=== PATIENT | male | born 1955 | race Caucasian/White ===

== ENCOUNTER 2017-12-04 12:09 | Inpatient (IN) | payer OTHER ==
[2017-12-04] MEDS ORDERED: Piperacill/Tazo 4.5gm in NS 4.5 GM/100 ML BAG IVPB STA (12:45)
--- NOTE | 2017-12-04 12:49 | ED PDOC ---
Arrival/HPI - General Chief Complaint: Lower Extremity Problem/Injury Time Seen by Provider: 12/04/17 12:21 Historian: Patient, Partner - History of Present Illness Narrative History of Present Illness (Text): you were treated in the ED today for diabetes?, sent by Dr. Jian Jauregui for admission for having left foot/5th toe swelling/color change and left lower leg swelling for about 2 weeks and possible injury but otherwise without any nausea/ vomiting/headache/dizziness/difficulty breathing/chest pain/abdomen pain/ numbness/tingling/loss of limb function/pain with urination/travel/prior blood clots/prior cancer. Time/Duration: > week (2) Symptom Onset: Gradual Symptom Course: Worsening Quality: Other (no pain) Activities at Onset: Rest Context: Sitting Past Medical History - Provider Review Nursing Documentation Reviewed: Yes - Travel History Have you recently traveled outside [place] w/in the past 3 mons?: No - Infectious Disease Hx of Infectious Diseases: None - Neurological Other/Comment: neuropathy - Endocrine/Metabolic Hx Diabetes Mellitus Type 2: Yes - Psychiatric Hx Substance Use: No Family/Social History - Physician Review Nursing Documentation Reviewed: Yes Family/Social History: No Known Family HX Smoking Status: Former Smoker Hx Alcohol Use: Yes Frequency of alcohol use: Socially Hx Substance Use: No Allergies/Home Meds Allergies/Adverse Reactions: Allergies No Known Allergies Allergy (Verified 12/04/17 12:16) Review of Systems - Review of Systems Constitutional: Normal Eyes: Normal ENT: Normal Respiratory: Normal Cardiovascular: Normal Gastrointestinal: Normal Genitourinary Male: Normal Musculoskeletal: Joint Swelling Skin: Normal Neurological: Normal Endocrine: Normal Hemo/Lymphatic: Normal Psychiatric: Normal Physical Exam Vital Signs Reviewed: Yes Vital Signs Temp Pulse Resp BP Pulse Ox 12/04/17 12:09 98.9 F 60 18 145/100 H 59 L Temperature: Afebrile Blood Pressure: Hypertensive Pulse: Regular Respiratory Rate: Normal Appearance: Positive for: Well-Appearing, Non-Toxic, Comfortable Pain Distress: None Mental Status: Positive for: Alert and Oriented X 3 - Systems Exam Head: Present: Atraumatic, Normocephalic Pupils: Present: PERRL Extroacular Muscles: Present: EOMI Conjunctiva: Present: Normal Ears: Present: Normal Mouth: Present: Moist Mucous Membranes Pharnyx: Present: Normal Nose (External): Present: Atraumatic Nose (Internal): Present: Normal Inspection Neck: Present: Normal Range of Motion Respiratory/Chest: Present: Clear to Auscultation, Good Air Exchange Cardiovascular: Present: Regular Rate and Rhythm Abdomen: No: Tenderness, Distention, Normal Bowel Sounds, Peritoneal Signs, Rebound, Guarding, McBurney's Point Tender, Rovsing's Sign Present, Hernias, Feeding Tubes, Ostomy Tubes, Mass/Organomegaly, Scars, Other Back: Present: Normal Inspection Upper Extremity: Present: Normal Inspection Lower Extremity: Present: Other ( left lower leg swelling/redness and discoloration of the left 5th toe with ulceration underneath the left first toe on the plantar surface and mild swelling/redness of the left foot/leg and otherwise good range of motion/warm/sensation/pink/with dopplarable distal pulses and no crepitus/fluctuance,) Neurological: Present: GCS=15, CN II-XII Intact, Speech Normal, Motor Func Grossly Intact Skin: Present: Warm, Dry, Other (see le) Psychiatric: Present: Alert, Oriented x 3, Normal Insight, Normal Concentration Medical Decision Making ED Course and Treatment: you were treated in the ED today for diabetes?, sent by Dr. Jian Jauregui for admission for having left foot/5th toe swelling/color change and left lower leg swelling for about 2 weeks and possible injury but otherwise without any nausea/ vomiting/headache/dizziness/difficulty breathing/chest pain/abdomen pain/ numbness/tingling/loss of limb function/pain with urination/recent travel/prior blood clots/prior cancer. You were otherwise breathing easily, pink moist lips, smiling and talking with your partner, good strength/sensation, alert/oriented, walking easily, clear lungs, no abdomen tenderness, left lower leg swelling/ redness and discoloration of the left 5th toe with ulceration underneath the left first toe on the plantar surface and mild swelling/redness of the left foot /leg and otherwise good range of motion/warm/sensation/pink/with dopplarable distal pulses and no crepitus/fluctuance, no fever temp 98.9, stable heart rate 60, stable breathing rate 18, excellent oxygen level _% room air, elevated blood pressure 145/100 which we recommend repeat in 2-3 days primary care office to determine further treatment, you have blood tests infection count 13, stable blood level hemoglobin 12/platelets 229, stable chemistry, mildly elevated potassium 5.4, glucose 262 elevated, heart blood test negative, urine test no acute sign of infection, radiology foot xray degenerative changes, ultrasound left lower leg per military pay technician negative for DVT, ECG sinus bradycardia , zosyn, intravenous fluids, observation done in the ED with improvement. d/w Dr. Cali and will admit for cellulitis LLE foot/leg, left 5th toe signs of necrosis and will admit to med-surg. Reassessment Condition: Re-examined, Improved - Lab Interpretations Lab Results: 12/04/17 13:13 12/04/17 13:13 Lab Results 12/04/17 14:30: Urine Color Yellow, Urine Appearance Clear, Urine pH 6.0, Ur Specific [place] 1.025, Urine Protein 100 H, Urine Glucose (UA) 250 H, Urine Ketones 15 H, Urine Blood Negative, Urine Nitrate Negative, Urine Bilirubin Negative, Urine Urobilinogen 2.0 H, Ur Leukocyte Esterase Negative, Urine RBC 0 - 2, Urine WBC 1 - 3, Ur Epithelial Cells 1 - 3, Urine Bacteria Neg 12/04/17 13:13: Sodium 135, Chloride 98, Potassium 5.4 H, Carbon Dioxide 27, Anion Gap 15, BUN 22 H, Creatinine 1.3, Est GFR ( Amer) > 60, Est GFR ( Non-Af Amer) 56, Random Glucose 262 H, Calcium 9.1, Magnesium 2.2, Total Bilirubin 0.9, AST 17, ALT 24, Alkaline Phosphatase 80, Troponin I < 0.01, Total Protein 7.4, Albumin 4.1, Globulin 3.3, Albumin/Globulin Ratio 1.2 12/04/17 13:13: pO2 32, VBG pH 7.33, VBG pCO2 53.0, VBG HCO3 27.9, VBG Total CO2 29.5 H, VBG O2 Sat (Calc) 66.9 H, VBG Base Excess 1.0, VBG Potassium 5.6 H, Sodium 134.0, Chloride 102.0, Glucose 269 H, Lactate 2.0, FiO2 21.0, Venous Blood Potassium 5.6 H 12/04/17 13:13: PT 12.9 H, INR 1.12 H, APTT 26.6 12/04/17 13:13: WBC 13.1 H, RBC 3.83, Hgb 12.7 L, Hct 35.4 L, MCV 92.4, MCH 33.2 , MCHC 35.9, RDW 12.4, Plt Count 229, MPV 9.8, Gran % 73.9 H, Lymph % (Auto) 17.4 L, [place] % (Auto) 7.9 H, Eos % (Auto) 0.6 L, Baso % (Auto) 0.2, Gran # 9.66 H, Lymph # (Auto) 2.3, [place] # (Auto) 1.0 H, Eos # (Auto) 0.1, Baso # (Auto) 0.02 , ESR 78 H I have reviewed the lab results: Yes - RAD Interpretation Radiology Orders: 12/04/17 12:43 FOOT LEFT 3 VIEWS ROUTINE [RAD] Stat 12/04/17 12:44 DUPLEX LOWER EXTRM VEIN LEFT [US] 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 Physician (left foot xray degenerative changes) - EKG Interpretation Interpreted by ED Physician: Yes (sinus bradycardia, flipped t waves avr, v1, flattened avl.) Type: 12 lead EKG - Medication Orders Current Medication Orders: Discontinued Medications Piperacillin Sod/Tazobactam Sod (Zosyn 4.5 Gm In Ns 100ml) 4.5 gm in 100 mls @ 200 mls/hr IVPB STAT STA PRN Reason: Protocol Stop: 12/04/17 13:14 Last Admin: 12/04/17 14:14 Dose: 200 mls/hr eMAR Start Stop Document 12/04/17 14:14 [email or web address] (Rec: 12/04/17 14:14 [email or web address] [id number]- [employer]ANDSCAPE ARCHITECTURE [employer]) Intravenous Solution Start Date 12/04/17 Start Time 14:14 End Date 12/04/17 Sodium Chloride (Sodium Chloride 0.9%) 1,000 mls @ 999 mls/hr IV .Q1H1M STA Stop: 12/04/17 15:09 Last Admin: 12/04/17 14:14 Dose: 999 mls/hr eMAR Start Stop Document 12/04/17 14:14 [email or web address] (Rec: 12/04/17 14:14 [email or web address] [id number]- [employer]ANDSCAPE ARCHITECTURE TE[employer]ER) Intravenous Solution Start Date 12/04/17 Start Time 14:14 End Date 12/04/17 Disposition/Present on Arrival - Present on Arrival Any Indicators Present on Arrival: Yes History of DVT/PE: No History of Uncontrolled Diabetes: Yes Urinary Catheter: No History of Decub. Ulcer: No History Surgical Site Infection Following: None - Disposition Have Diagnosis and Disposition been Completed?: No Diagnosis: Cellulitis Disposition: HOSPITALIZED Disposition Time: 15:34 Patient Plan: Admission Condition: IMPROVED Discharge Instructions (ExitCare): Cellulitis (ED) Forms: [employer] (Japanese)
[2017-12-04 13:31] LABS: VENOUS BLOOD GAS PO2 32 mm/Hg (30-55); VENOUS BLOOD PH 7.33 (7.32-7.43)
[2017-12-04 13:44] LABS: BASO # 0.02 K/mm3 (0.0-2.0); BASO % 0.2 % (0.0-3.0); EOS # 0.1 (0.0-0.7); EOS % 0.6 % (1.5-5.0); GRAN # 9.66 (1.4-6.5); GRAN % 73.9 % (50.0-68.0); HEMOGLOBIN 12.7 g/dL (14.0-18.0); LYMPH # 2.3 (1.2-3.4); LYMPH % 17.4 % (22.0-35.0); MEAN CELL VOLUME 92.4 fl (80.0-105.0); MEAN CORPUSCULAR HEMOGLOBIN 33.2 pg (25.0-35.0); MEAN CORPUSCULAR HGB CONC 35.9 g/dl (31.0-37.0); MEAN PLATELET VOLUME 9.8 fl (7.0-11.0); MONO % 7.9 % (1.0-6.0); RBC 3.83 10^6/uL (3.5-6.1); RED CELL DISTRIBUTION WIDTH 12.4 % (11.5-14.5); WHITE BLOOD COUNT 13.1 10^3/ul (4.5-11.0)
[2017-12-04 13:53] LABS: INR 1.12 (0.93-1.08); PARTIAL THROMBOPLASTIN TIME 26.6 Seconds (25.1-36.5); PROTHROMBIN TIME 12.9 SECONDS (9.4-12.5)
[2017-12-04 14:04] LABS: ALB/GLOB RATIO 1.2 (1.1-1.8); ALBUMIN 4.1 g/dL (3.0-4.8); ALT/SGPT 24 U/L (7-56); AST/SGOT 17 U/L (17-59); BLOOD UREA NITROGEN 22 mg/dL (7-21); CALCIUM 9.1 mg/dL (8.4-10.5); GFR AFRICAN-AMERICAN > 60; GFR NON-AFRICAN AMERICAN 56
[2017-12-04] MEDS ORDERED: Sodium Chloride 0.9% 1,000 ML IV STA (14:09)
--- NOTE | 2017-12-04 14:11 | RAD ---
PROCEDURE: Left Foot Radiographs. HISTORY: 62yoM with left foot swelling COMPARISON: None. FINDINGS: BONES: No evidence of acute displaced fracture nor dislocation. The osseous structures appear grossly intact. No definitive cortical destructive changes. Minor hallux valgus deformity with slight overgrowth of the head of the 1st metatarsal and minimal DJD 1st MTP joint. Min. There is also mild localized prominence of the medial soft tissues at the level of the 1st MTP joint likely representing bunion. There is a small posterior calcaneal enthesophyte. JOINTS: As above SOFT TISSUES: Mild diffuse circumferential soft tissue swelling nonspecific. Vascular calcifications are present. OTHER FINDINGS: None. IMPRESSION: No evidence of acute displaced fracture nor dislocation. No definitive cortical destructive changes however the possibility of early osteomyelitis cannot be completely excluded. . Mild diffuse circumferential soft tissue swelling nonspecific. Rule out cellulitis. Consider follow-up MRI for further evaluation if indicated. .
[2017-12-04 14:29] LABS: TROPONIN I < 0.01 ng/mL
[2017-12-04 15:01] LABS: URINE BILIRUBIN NEGATIVE (NEGATIVE); URINE BLOOD NEGATIVE (NEGATIVE); URINE GLUCOSE (UA) 250 mg/dL (NEGATIVE); URINE LEUKOCYTE ESTERASE NEGATIVE Leu/uL (NEGATIVE); URINE PROTEIN 100 mg/dL (<30 mg/dL)
[2017-12-04 15:04] LABS: URINE APPEARANCE CLEAR (CLEAR); URINE COLOR YELLOW (YELLOW)
[2017-12-04 15:07] LABS: URINE RBC 0 - 2 /hpf (0-2)
[2017-12-04 15:08] LABS: URINE BACTERIA NEG (NEG)
--- NOTE | 2017-12-04 15:41 | CP.PCM.HP ---
<Brenda Oro - Last Filed: 12/04/17 18:23> History of Present Illness - History of Present Illness History of Present Illness: 62yo male with no PMHx not on any home meds presents with 2 week history of L foot swelling and change in color. As per patient he did not have any trauma/ inciting event. He reports he started to notice his left fifth toe become red then gradually noticed the color change to darker within 2 weeks. He denied any pain and reports decreased sensation in his toes. He reports the Left fifth toe nail fell off and he took off "hard skin" from his foot. He denied any pain on ambulation/fever/chills. Patient was seen by PMD Dr. Jauregui for the first time today and was sent in to [facility] ED. On ROS denied headache, dizziness, chest pain, palpitations, SOB, cough, abd pain, nausea, vomiting, bowel/bladder complaints, pain in his legs b/l. He did admit to numbness and some mild tingling in his feet b/l and nocturia. PMHx: denies PSurgHx: denies Meds: pls see chart ALL: NKDA SocHx: denies tobacco/drug use. Drinks 1-2beers/day. 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 Denies recent travel/sick contacts FamHx: mother: DM and CVA. brother has DM PMD: [place] Present on Admission - Present on Admission Any Indicators Present on Admission: No Review of Systems - Review of Systems All systems: reviewed and no additional remarkable complaints except - Constitutional Constitutional: As Per HPI. absent: Chills, Fever - EENT Eyes: As Per HPI. absent: Blurred Vision Ears: As Per HPI. absent: Dizziness Nose/Mouth/Throat: As Per HPI. absent: Sore Throat - Cardiovascular Cardiovascular: As Per HPI, Pedal Edema. absent: Chest Pain, Dyspnea - Respiratory Respiratory: As Per HPI. absent: Cough, Dyspnea, Chest Congestion - Gastrointestinal Gastrointestinal: As Per HPI. absent: Abdominal Pain, Constipation, Diarrhea, Nausea, Vomiting - Genitourinary Genitourinary: As Per HPI, Nocturia - Musculoskeletal Musculoskeletal: As Per HPI, Numbness, Tingling - Integumentary Integumentary: As Per HPI, Erythema, New Lesions, Skin Ulcer, Wounds - Neurological Neurological: As Per HPI, Numbness (b/l toes), Tingling (b/l feet). absent: Dizziness - Psychiatric Psychiatric: As Per HPI. absent: Anxiety, Depression - Endocrine Endocrine: As Per HPI. absent: Polydipsia, Polyphagia, Polyuria - Hematologic/Lymphatic Hematologic: As Per HPI. absent: Easy Bleeding, Easy Bruising Past Patient History - Infectious Disease Hx of Infectious Diseases: None - Past Social History Smoking Status: Former Smoker - NEUROLOGICAL Other/Comment: neuropathy - ENDOCRINE/METABOLIC Hx Diabetes Mellitus Type 2: Yes - PSYCHIATRIC Hx Substance Use: No Meds Allergies/Adverse Reactions: Allergies Allergy/AdvReac Type Severity Reaction Status Date / Time No Known Allergies Allergy Verified 12/04/17 12:16 Physical Exam - Constitutional Appears: Non-toxic, No Acute Distress - Head Exam Head Exam: ATRAUMATIC, NORMAL INSPECTION, NORMOCEPHALIC - Eye Exam Eye Exam: EOMI, Normal appearance. absent: Conjunctival injection, Scleral icterus Pupil Exam: PERRL - ENT Exam ENT Exam: Mucous Membranes Moist - Neck Exam Neck exam: Positive for: Full Rom, Normal Inspection - Respiratory Exam Respiratory Exam: Clear to Auscultation Bilateral, NORMAL BREATHING PATTERN. absent: Accessory Muscle Use, Rales, Rhonchi, Wheezes, Respiratory Distress - Cardiovascular Exam Cardiovascular Exam: REGULAR RHYTHM, RRR, +S1, +S2 - GI/Abdominal Exam GI & Abdominal Exam: Normal Bowel Sounds, Soft. absent: Firm, Guarding, Rigid, Tenderness - Rectal Exam Rectal Exam: Deferred - Extremities Exam Additional comments: L foot and lower extremity swelling/redness and discoloration of the left 5th toe with ulceration underneath the left first toe on the plantar surface and mild swelling/redness of left foot/leg. LLE warm to touch. Sensation diminished in toes b/l but proprioception intact b/l. No crepitus/fluctuance - Back Exam Back exam: NORMAL INSPECTION. absent: rash noted - Neurological Exam Neurological exam: Alert, CN II-XII Intact, Oriented x3 - Psychiatric Exam Psychiatric exam: Normal Affect, Normal Mood - Skin Skin Exam: Dry Additional comments: L foot erythema. L 5th toe gangrenous (dry). Ulcer noted on medial aspect of L foot. Results - Vital Signs Recent Vital Signs: Last Vital Signs Temp 98.9 F 12/04/17 12:09 Pulse 60 12/04/17 12:09 Resp 18 12/04/17 12:09 BP 145/100 H 12/04/17 12:09 Pulse Ox 59 L 12/04/17 12:09 - Labs Result Diagrams: 12/04/17 13:13 12/04/17 13:13 Labs: Laboratory Results - last 24 hr 12/04/17 12/04/17 12/04/17 13:13 13:13 13:13 WBC 13.1 H RBC 3.83 Hgb 12.7 L Hct 35.4 L MCV 92.4 MCH 33.2 MCHC 35.9 RDW 12.4 Plt Count 229 MPV 9.8 Gran % 73.9 H Lymph % (Auto) 17.4 L [place] % (Auto) 7.9 H Eos % (Auto) 0.6 L Baso % (Auto) 0.2 Gran # 9.66 H Lymph # (Auto) 2.3 [place] # (Auto) 1.0 H Eos # (Auto) 0.1 Baso # (Auto) 0.02 ESR 78 H PT 12.9 H INR 1.12 H APTT 26.6 pO2 32 VBG pH 7.33 VBG pCO2 53.0 VBG HCO3 27.9 VBG Total CO2 29.5 H VBG O2 Sat (Calc) 66.9 H VBG Base Excess 1.0 VBG Potassium 5.6 H Sodium 134.0 Chloride 102.0 Glucose 269 H Lactate 2.0 FiO2 21.0 Potassium Carbon Dioxide Anion Gap BUN Creatinine Est GFR ( Amer) Est GFR (Non-Af Amer) Random Glucose Calcium Magnesium Total Bilirubin AST ALT Alkaline Phosphatase Troponin I Total Protein Albumin Globulin Albumin/Globulin Ratio Venous Blood Potassium 5.6 H Urine Color Urine Appearance Urine pH Ur Specific [place] Urine Protein Urine Glucose (UA) Urine Ketones Urine Blood Urine Nitrate Urine Bilirubin Urine Urobilinogen Ur Leukocyte Esterase Urine RBC Urine WBC Ur Epithelial Cells Urine Bacteria 12/04/17 12/04/17 13:13 14:30 WBC RBC Hgb Hct MCV MCH MCHC RDW Plt Count MPV Gran % Lymph % (Auto) [place] % (Auto) Eos % (Auto) Baso % (Auto) Gran # Lymph # (Auto) [place] # (Auto) Eos # (Auto) Baso # (Auto) ESR PT INR APTT pO2 VBG pH VBG pCO2 VBG HCO3 VBG Total CO2 VBG O2 Sat (Calc) VBG Base Excess VBG Potassium Sodium 135 Chloride 98 Glucose Lactate FiO2 Potassium 5.4 H Carbon Dioxide 27 Anion Gap 15 BUN 22 H Creatinine 1.3 Est GFR ( Amer) > 60 Est GFR (Non-Af Amer) 56 Random Glucose 262 H Calcium 9.1 Magnesium 2.2 Total Bilirubin 0.9 AST 17 ALT 24 Alkaline Phosphatase 80 Troponin I < 0.01 Total Protein 7.4 Albumin 4.1 Globulin 3.3 Albumin/Globulin Ratio 1.2 Venous Blood Potassium Urine Color Yellow Urine Appearance Clear Urine pH 6.0 Ur Specific [place] 1.025 Urine Protein 100 H Urine Glucose (UA) 250 H Urine Ketones 15 H Urine Blood Negative Urine Nitrate Negative Urine Bilirubin Negative Urine Urobilinogen 2.0 H Ur Leukocyte Esterase Negative Urine RBC 0 - 2 Urine WBC 1 - 3 Ur Epithelial Cells 1 - 3 Urine Bacteria Neg Assessment & Plan - Assessment and Plan (Free Text) Assessment: 62yo male with no PMHx not on any home meds presents with 2 week history of L foot swelling and change in color. Plan: L foot cellulitis and L fifth toe signs of necrosis -admit to med/surg -Vanc and Zosyn day 1 -Vit C and Thiamine -f/u L foot xray- consider MRI -f/u LE dopplers -f/u cultures -f/u procalcitonin -f/u ESR and CRP -daily wound care -PT/OT -ID and Podiatry consulted Normocytic Anemia -f/u iron studies Suspicion for DM2 -Accucheck achs -RISS -f/u hgbA1c -para educator -Lisinopril 5mg po qd GI ppx: pepcid bid DVT ppx: Heparin q12; SCDs c/i Diet: HALF-WAY Consults: ID, Podiatry, PT/OT, para educator Discussed with Dr. Aureliano Oro PGY2 <Arslan Bedoya - Last Filed: 12/05/17 17:03> Results - Vital Signs Recent Vital Signs: Last Vital Signs Temp 99 F 12/05/17 08:23 Pulse 60 12/05/17 10:23 Resp 20 12/05/17 08:23 BP 140/78 12/05/17 10:23 Pulse Ox 97 12/05/17 08:23 - Labs Result Diagrams: 12/05/17 07:30 12/05/17 07:30 Labs: Laboratory Results - last 24 hr 12/04/17 12/04/17 12/04/17 16:00 16:00 16:00 WBC RBC Hgb Hct MCV MCH MCHC RDW Plt Count MPV Gran % Lymph % (Auto) [place] % (Auto) Eos % (Auto) Baso % (Auto) Gran # Lymph # (Auto) [place] # (Auto) Eos # (Auto) Baso # (Auto) APTT pO2 VBG pH VBG pCO2 VBG HCO3 VBG Total CO2 VBG O2 Sat (Calc) VBG Base Excess VBG Potassium Sodium Chloride Glucose Lactate FiO2 Potassium Carbon Dioxide Anion Gap BUN Creatinine Est GFR ( Amer) Est GFR (Non-Af Amer) POC Glucose (mg/dL) Random Glucose Hemoglobin A1c Calcium Iron TIBC % Saturation Transferrin 156.88 L Ferritin 247.0 Total Bilirubin AST ALT Alkaline Phosphatase Total Protein Albumin Globulin Albumin/Globulin Ratio Triglycerides Cholesterol LDL Cholesterol Direct HDL Cholesterol Procalcitonin < 0.05 L Venous Blood Potassium 12/04/17 12/04/17 12/04/17 16:00 16:24 16:30 WBC RBC Hgb Hct MCV MCH MCHC RDW Plt Count MPV Gran % Lymph % (Auto) [place] % (Auto) Eos % (Auto) Baso % (Auto) Gran # Lymph # (Auto) [place] # (Auto) Eos # (Auto) Baso # (Auto) APTT pO2 31 VBG pH 7.35 VBG pCO2 50.0 VBG HCO3 27.6 VBG Total CO2 29.1 H VBG O2 Sat (Calc) 65.3 H VBG Base Excess 1.2 VBG Potassium 4.6 Sodium 134.0 Chloride 102.0 Glucose 203 H Lactate 1.2 FiO2 21.0 Potassium Carbon Dioxide Anion Gap BUN Creatinine Est GFR ( Amer) Est GFR (Non-Af Amer) POC Glucose (mg/dL) 183 H Random Glucose Hemoglobin A1c Calcium Iron 19 L TIBC 222 L % Saturation 9 L Transferrin Ferritin Total Bilirubin AST ALT Alkaline Phosphatase Total Protein Albumin Globulin Albumin/Globulin Ratio Triglycerides Cholesterol LDL Cholesterol Direct HDL Cholesterol Procalcitonin Venous Blood Potassium 4.6 12/04/17 12/04/17 12/05/17 18:00 21:34 07:10 WBC RBC Hgb Hct MCV MCH MCHC RDW Plt Count MPV Gran % Lymph % (Auto) [place] % (Auto) Eos % (Auto) Baso % (Auto) Gran # Lymph # (Auto) [place] # (Auto) Eos # (Auto) Baso # (Auto) APTT pO2 VBG pH VBG pCO2 VBG HCO3 VBG Total CO2 VBG O2 Sat (Calc) VBG Base Excess VBG Potassium Sodium Chloride Glucose Lactate FiO2 Potassium 4.5 Carbon Dioxide Anion Gap BUN Creatinine Est GFR ( Amer) Est GFR (Non-Af Amer) POC Glucose (mg/dL) 144 H 120 H Random Glucose Hemoglobin A1c Calcium Iron TIBC % Saturation Transferrin Ferritin Total Bilirubin AST ALT Alkaline Phosphatase Total Protein Albumin Globulin Albumin/Globulin Ratio Triglycerides Cholesterol LDL Cholesterol Direct HDL Cholesterol Procalcitonin Venous Blood Potassium 12/05/17 12/05/17 12/05/17 07:30 07:30 07:30 WBC 10.6 RBC 3.57 Hgb 11.5 L Hct 32.9 L MCV 92.2 MCH 32.2 MCHC 35.0 RDW 12.3 Plt Count 206 MPV 9.9 Gran % 69.1 H Lymph % (Auto) 22.3 [place] % (Auto) 7.4 H Eos % (Auto) 0.9 L Baso % (Auto) 0.3 Gran # 7.29 H Lymph # (Auto) 2.4 [place] # (Auto) 0.8 H Eos # (Auto) 0.1 Baso # (Auto) 0.03 APTT 28.3 pO2 VBG pH VBG pCO2 VBG HCO3 VBG Total CO2 VBG O2 Sat (Calc) VBG Base Excess VBG Potassium Sodium 138 Chloride 104 Glucose Lactate FiO2 Potassium 4.1 Carbon Dioxide 24 Anion Gap 14 BUN 17 Creatinine 1.2 Est GFR ( Amer) > 60 Est GFR (Non-Af Amer) > 60 POC Glucose (mg/dL) Random Glucose 133 H Hemoglobin A1c Calcium 8.5 Iron TIBC % Saturation Transferrin Ferritin Total Bilirubin 0.7 AST 18 ALT 17 Alkaline Phosphatase 74 Total Protein 6.6 Albumin 3.4 Globulin 3.2 Albumin/Globulin Ratio 1.1 Triglycerides 61 Cholesterol 121 L LDL Cholesterol Direct 68 HDL Cholesterol 34 Procalcitonin Venous Blood Potassium 12/05/17 12/05/17 12/05/17 08:13 10:59 16:46 WBC RBC Hgb Hct MCV MCH MCHC RDW Plt Count MPV Gran % Lymph % (Auto) [place] % (Auto) Eos % (Auto) Baso % (Auto) Gran # Lymph # (Auto) [place] # (Auto) Eos # (Auto) Baso # (Auto) APTT pO2 VBG pH VBG pCO2 VBG HCO3 VBG Total CO2 VBG O2 Sat (Calc) VBG Base Excess VBG Potassium Sodium Chloride Glucose Lactate FiO2 Potassium Carbon Dioxide Anion Gap BUN Creatinine Est GFR ( Amer) Est GFR (Non-Af Amer) POC Glucose (mg/dL) 180 H 181 H Random Glucose Hemoglobin A1c 10.2 H Calcium Iron TIBC % Saturation Transferrin Ferritin Total Bilirubin AST ALT Alkaline Phosphatase Total Protein Albumin Globulin Albumin/Globulin Ratio Triglycerides Cholesterol LDL Cholesterol Direct HDL Cholesterol Procalcitonin Venous Blood Potassium Attending/Attestation - Attestation I have personally seen and examined this patient.: Yes I have fully participated in the care of the patient.: Yes I have reviewed all pertinent clinical information: Yes Notes (Text): 12/05/17 16:58 Medical record note made by the resident after discussion with my direction and input after the patient was personally seen and examined by me. I have reviewed the chart and agree that the record accurately reflects by personal performance of the history, physical exam, data review, and medical decision-making, in the course for the patient. I have also personally directed the plan of care. 62 yrs old male with no PMH is admitted with diabetic foot ulcer infection, dry gangrene of little toe, and cellulitis of leg.We will start patient on IV antibiotics ,Vancomycin and Zosyn.We will get Podiatry and ID consultation. Patient random blood sugars are running high, likely has NIDDM.We will start patient on sliding scale and monitor blood sugars.We will check [id number]. Management plan was discussed in detail with patient. Education was provided.
[2017-12-04] MEDS: Insulin Lispro (humaLOG) LOW Coverage SC SCH ×2 (16:38→22:07)
[2017-12-04] MEDS ORDERED: Vancomycin 1gm in NS 250ml 1 GM/250 ML BAG IVPB SCH (16:45)
[2017-12-04 17:24] LABS: IRON 19 ug/dL (45-180)
[2017-12-04 17:33] LABS: % IRON SATURATION 9 % (20-55); TOTAL IRON BINDING CAPACITY 222 ug/dL (261-462)
[2017-12-04] MEDS ORDERED: Piperacillin/Tazobact 2.25gm 2.25 GM/100 ML BAG IVPB SCH (18:00)
[2017-12-04 18:34] LABS: VENOUS BLOOD GAS BASE EXCESS 1.2 mmol/L (0.0-2.0); VENOUS BLOOD GAS PO2 31 mm/Hg (30-55); VENOUS BLOOD PH 7.35 (7.32-7.43)
[2017-12-04] MEDS: Piperacillin/Tazobact 3.375 gm 100 ML IVPB SCH (19:05)
[2017-12-04 20:41] VITALS: BMI 29.9
[2017-12-04] MEDS: Vancomycin 1gm in NS 250ml 1 GM/250 ML BAG IVPB SCH (21:16)
--- NOTE | 2017-12-04 23:36 | CARD ---
APPROVED REPORT EKG Measurement Heart [id number] <Conclusion> Sinus bradycardia Otherwise normal ECG
[2017-12-05] MEDS: Piperacillin/Tazobact 3.375 gm 100 ML IVPB SCH
[2017-12-05 08:11] LABS: BASO # 0.03 K/mm3 (0.0-2.0); BASO % 0.3 % (0.0-3.0); EOS # 0.1 (0.0-0.7); EOS % 0.9 % (1.5-5.0); GRAN # 7.29 (1.4-6.5); GRAN % 69.1 % (50.0-68.0); HEMOGLOBIN 11.5 g/dL (14.0-18.0); LYMPH # 2.4 (1.2-3.4); LYMPH % 22.3 % (22.0-35.0); MEAN CELL VOLUME 92.2 fl (80.0-105.0); MEAN CORPUSCULAR HEMOGLOBIN 32.2 pg (25.0-35.0); MEAN PLATELET VOLUME 9.9 fl (7.0-11.0); MONO # 0.8 (0.1-0.6); MONO % 7.4 % (1.0-6.0); RBC 3.57 10^6/uL (3.5-6.1); RED CELL DISTRIBUTION WIDTH 12.3 % (11.5-14.5); WHITE BLOOD COUNT 10.6 10^3/ul (4.5-11.0)
--- NOTE | 2017-12-05 08:34 | CP.PCM.PN ---
<Cole Gramajo - Last Filed: 12/05/17 11:31> Subjective - Date & Time of Evaluation Date of Evaluation: 12/05/17 Time of Evaluation: 08:31 - Subjective Subjective: Internal medicine progress note Patient seen and examined this AM. No acute events overnight. Patient indicates improvement of discomfort since presentation. Denies chest pain, shortness of breath, abdominal pain, nausea, vomiting, fever, chills. Objective - Vital Signs/Intake and Output Vital Signs (last 24 hours): Temp Pulse Resp BP Pulse Ox 99 F 56 L 20 141/98 H 97 12/05/17 08:23 12/05/17 08:23 12/05/17 08:23 12/05/17 08:23 12/05/17 08:23 Intake and Output: 12/05/17 12/05/17 06:59 18:59 Intake Total 120 Output Total 700 Balance -580 - Medications Medications: Current Medications Ascorbic Acid (Vitamin C 500 Mg Tab) 500 mg PO DAILY [facility] Famotidine (Pepcid) 20 mg PO 1000,2200 [facility] Last Admin: 12/04/17 21:17 Dose: 20 mg Heparin Sodium (Porcine) (Heparin) 5,000 units SC Q12 [facility] PRN Reason: Protocol Last Admin: 12/04/17 21:17 Dose: 5,000 units Vancomycin HCl (Vancomycin 1gm) 1 gm in 250 mls @ 167 mls/hr IVPB DAILY [facility] PRN Reason: Protocol Last Admin: 12/04/17 21:16 Dose: 167 mls/hr Insulin Human Lispro (Humalog Low) 0 units SC ACHS [facility] PRN Reason: Protocol Last Admin: 12/04/17 22:07 Dose: Not Given Lisinopril (Zestril) 5 mg PO DAILY [facility] Thiamine HCl (Vitamin B1 Tab) 100 mg PO DAILY [facility] - Labs Labs: 12/05/17 07:30 12/04/17 18:00 PT 12.9 SECONDS (9.4-12.5) H 12/04/17 13:13 INR 1.12 (0.93-1.08) H 12/04/17 13:13 APTT 28.3 Seconds (25.1-36.5) 12/05/17 07:30 - Head Exam Head Exam: ATRAUMATIC, NORMAL INSPECTION, NORMOCEPHALIC - Eye Exam Eye Exam: EOMI, PERRL - ENT Exam ENT Exam: Mucous Membranes Moist - Respiratory Exam Respiratory Exam: Clear to Ausculation Bilateral, NORMAL BREATHING PATTERN - Cardiovascular Exam Cardiovascular Exam: REGULAR RHYTHM, +S1, +S2 - GI/Abdominal Exam GI & Abdominal Exam: Soft, Normal Bowel Sounds - Extremities Exam Extremities Exam: absent: Calf Tenderness, Pedal Edema - Neurological Exam Neurological Exam: Alert, Awake, Oriented x3 - Psychiatric Exam Psychiatric exam: Normal Affect, Normal Mood - Skin Skin Exam: Dry, Warm Additional comments: L foot and lower extremity swelling/redness and discoloration of the left 5th toe with ulceration underneath the left first toe on the plantar surface and mild swelling/redness of left foot/leg. LLE warm to touch, Left fifth toe dry gangrenous Assessment and Plan - Assessment and Plan (Free Text) Assessment: 62 year old male with no past medical history who presented with 2 week history of left foot swelling and skin changes of his left fifth toe. Patient admitted for suspected cellulitis vs. OM. Pt on IV antibiotics, podiatry and ID consulted. Plan: Cellulitis of Left foot/Left fifth toe dry gangrene Details: - Left foot xray: No acute fracture, mild diffuse circumferential soft tissue swelling nonspecific, no definitive cortical destructive changes however unable to r/o OM - LE dopplers: pending - Left foot wound clx: pending final, moderate gram + cocci, moderate gram - rods - ESR and CRP elevated - ID Consulted - Podiatry Consulted - Afebrile Plan: - Continue IV abx, Vanc and Zosyn day 2 - f/u ID and Podiatry recs - Consider MRI of left foot Anemia Details: - Normocytic anemia - Iron studies point towards ACD Plan: - Monitor GI ppx: Pepcid DVT ppx: Heparin Q12 Case and plan discussed with attending <Arslan Bedoya - Last Filed: 12/05/17 17:06> Objective - Vital Signs/Intake and Output Vital Signs (last 24 hours): Temp Pulse Resp BP Pulse Ox 99 F 60 20 140/78 97 12/05/17 08:23 12/05/17 10:23 12/05/17 08:23 12/05/17 10:23 12/05/17 08:23 Intake and Output: 04/22/18 04/22/18 06:59 18:59 Intake Total 120 Output Total 700 Balance -580 - Medications Medications: Current Medications Ascorbic Acid (Vitamin C 500 Mg Tab) 500 mg PO DAILY [facility] Last Admin: 12/05/17 10:24 Dose: 500 mg Famotidine (Pepcid) 20 mg PO 1000,2200 [facility] Last Admin: 12/05/17 10:23 Dose: 20 mg Heparin Sodium (Porcine) (Heparin) 5,000 units SC Q8 [facility] PRN Reason: Protocol Last Admin: 12/05/17 14:28 Dose: 5,000 units Ceftaroline Fosamil 600 mg/ (Sodium Chloride) 100 mls @ 100 mls/hr IVPB Q12 [facility] PRN Reason: Protocol Stop: 12/14/17 17:01 Insulin Human Lispro (Humalog Low) 0 units SC ACHS [facility] PRN Reason: Protocol Last Admin: 12/05/17 11:53 Dose: 1 units Lisinopril (Zestril) 5 mg PO DAILY [facility] Last Admin: 12/05/17 10:23 Dose: 5 mg Mupirocin (Bactroban Ointment) 0 gm TOP BID [facility] Thiamine HCl (Vitamin B1 Tab) 100 mg PO DAILY [facility] Last Admin: 12/05/17 10:23 Dose: 100 mg - Labs Labs: 12/05/17 07:30 12/05/17 07:30 PT 12.9 SECONDS (9.4-12.5) H 12/04/17 13:13 INR 1.12 (0.93-1.08) H 12/04/17 13:13 APTT 28.3 Seconds (25.1-36.5) 12/05/17 07:30 Attending/Attestation - Attestation I have personally seen and examined this patient.: Yes I have fully participated in the care of the patient.: Yes I have reviewed all pertinent clinical information, including history, physical exam and plan: Yes Notes (Text): 12/05/17 17:04 Medical record note made by the resident after discussion with my direction and input after the patient was personally seen and examined by me. I have reviewed the chart and agree that the record accurately reflects by personal performance of the history, physical exam, data review, and medical decision-making, in the course for the patient. I have also personally directed the plan of care. 62 yrs old male with no PMH is admitted with diabetic foot ulcer infection, dry gangrene of little toe, and cellulitis of leg. Continue IV antibiotis as per PD.Podiatry evaluation is appreciated. Blood sugars are better controlled with sliding scale coverage .We will follow up [id number]. Management plan was discussed in detail with patient. Education was provided. 12/05/17 17:05
[2017-12-05 08:48] LABS: ALB/GLOB RATIO 1.1 (1.1-1.8); ALBUMIN 3.4 g/dL (3.0-4.8); ALT/SGPT 17 U/L (7-56); AST/SGOT 18 U/L (17-59); BLOOD UREA NITROGEN 17 mg/dL (7-21); CALCIUM 8.5 mg/dL (8.4-10.5); GFR AFRICAN-AMERICAN > 60; GFR NON-AFRICAN AMERICAN > 60; HDL CHOLESTEROL 34 mg/dL (29-60)
[2017-12-05 08:54] LABS: LDL CHOLESTEROL 68 mg/dL (0-129)
[2017-12-05] MEDS: Insulin Lispro (humaLOG) LOW Coverage SC SCH ×4 (10:23→22:42)
[2017-12-05] MEDS: Vancomycin 1gm in NS 250ml 1 GM/250 ML BAG IVPB SCH (10:24)
--- NOTE | 2017-12-05 16:11 | CP.PCM.CON ---
<Roland Morgan - Last Filed: 12/06/17 06:07> History of Present Illness - History of Present Illness History of Present Illness: Podiatry Consult Note - Dr. Jauregui 62 year old male patient with unknown medical history seen and evaluated at bedside for left foot wound and darkened 5th digit. present at bedside. Patient states about 2 weeks ago, he first noticed a wound near his great toe along with his left lower extremity becoming red and swollen. Patient states he has developed similar wounds in the past and has treated the wounds himself with OTC antibiotic. Denies any previous trauma. States he then noticed his 5th digit becoming black in color, which prompted him to see Dr. Jauregui for further evaluation. At his appointment, patient states he was told by Dr. Jauregui to present to ED for abx. Patient admits to occasional numbness, burning, tingling in both feet. Denies N/V/F/D/C/SOB/GUZMAN/dizziness/CP. PMHx: denies PSH: denies FH: DM (mother and brother), CVA (mother) SH: 1-2 drinks/day, 1/2 PPD x 10 years, denies illicit drug use Review of Systems - Review of Systems All systems: reviewed and no additional remarkable complaints except (as per HPI ) Past Patient History - Infectious Disease Hx of Infectious Diseases: None - Past Social History Smoking Status: Former Smoker - CARDIAC Hx Cardiac Disorders: Yes Hx Hypertension: Yes - PULMONARY Hx Respiratory Disorders: No - NEUROLOGICAL Hx Neurological Disorder: Yes Other/Comment: neuropathy - HEENT Hx HEENT Problems: No - RENAL Hx Chronic Kidney Disease: No - ENDOCRINE/METABOLIC Hx Endocrine Disorders: Yes Hx Diabetes Mellitus Type 2: Yes - HEMATOLOGICAL/ONCOLOGICAL Hx Blood Disorders: No - INTEGUMENTARY Hx Dermatological Problems: Yes Other/Comment: LEFT GREAT TOE DISCOLORED - MUSCULOSKELETAL/RHEUMATOLOGICAL Hx Musculoskeletal Disorders: No Hx Falls: No - GASTROINTESTINAL Hx Gastrointestinal Disorders: No - GENITOURINARY/GYNECOLOGICAL Hx Genitourinary Disorders: No - PSYCHIATRIC Hx Psychophysiologic Disorder: No - SURGICAL HISTORY Hx Surgeries: No Meds Allergies/Adverse Reactions: Allergies Allergy/AdvReac Type Severity Reaction Status Date / Time No Known Allergies Allergy Verified 12/04/17 12:16 - Medications Medications: Current Medications Ascorbic Acid (Vitamin C 500 Mg Tab) 500 mg PO DAILY [facility] Last Admin: 12/05/17 10:24 Dose: 500 mg Famotidine (Pepcid) 20 mg PO 1000,2200 [facility] Last Admin: 12/05/17 10:23 Dose: 20 mg Heparin Sodium (Porcine) (Heparin) 5,000 units SC Q8 [facility] PRN Reason: Protocol Last Admin: 12/05/17 14:28 Dose: 5,000 units Vancomycin HCl (Vancomycin 1gm) 1 gm in 250 mls @ 167 mls/hr IVPB DAILY [facility] PRN Reason: Protocol Last Admin: 12/05/17 10:24 Dose: 167 mls/hr Piperacillin Sod/Tazobactam Sod (Zosyn 4.5 Gm In Ns 100ml) 4.5 gm in 100 mls @ 200 mls/hr IVPB Q6 [facility] PRN Reason: Protocol Stop: 12/06/17 00:29 Insulin Human Lispro (Humalog Low) 0 units SC ACHS [facility] PRN Reason: Protocol Last Admin: 12/05/17 11:53 Dose: 1 units Lisinopril (Zestril) 5 mg PO DAILY [facility] Last Admin: 12/05/17 10:23 Dose: 5 mg Thiamine HCl (Vitamin B1 Tab) 100 mg PO DAILY [facility] Last Admin: 12/05/17 10:23 Dose: 100 mg Physical Exam - Constitutional Appears: Well, Non-toxic, No Acute Distress - Extremities Exam Additional comments: VASC: Right DP and PT pulses palpable 2/4. Left DP and PT pulses nonpalpable secondary to edema. CFT <3 seconds to all digits right foot, digits 1-4 left foot and unable to assess 5th digit. Temperature gradient cool to cool RLE, hot to hot LLE with increase in warmth and nonpitting edema. extending from tibial tuberosity into digits. NEURO: Light touch and protective sensation moderately diminished b/l. DERM: LLE=Ulceration noted to medial aspect of 1st met head measuring approximately 0.5 x 0.5 x 0.1 cm - noted to have a mixed granular/necrotic base and hyperkeratotic rim; serosanguinous drainage present; no periwound erythema; no purulence; no fluctuance; no undermining; no tunneling. Dry necrotic 5th digit with sloughing of skin proximally; malodor present; no drainage; no purulence. Hyperkeratosis noted to hallucal distal tuft. RLE=WNL ORTHO: No pain on palpation left medial 1st met head ulceration. Minimal pain upon ROM left 5th digit. Muscle strength 5/5 for all dorisflexors, plantarflexors, inverters, and everters b/l. - Neurological Exam Neurological exam: Alert, Oriented x3 - Psychiatric Exam Psychiatric exam: Normal Affect, Normal Mood Results - Vital Signs Recent Vital Signs: Last Vital Signs Temp 99 F 12/05/17 08:23 Pulse 60 12/05/17 10:23 Resp 20 12/05/17 08:23 BP 140/78 12/05/17 10:23 Pulse Ox 97 12/05/17 08:23 - Labs Result Diagrams: 12/05/17 07:30 12/05/17 07:30 Labs: Laboratory Results - last 24 hr 12/04/17 12/04/17 12/04/17 16:00 16:00 16:00 WBC RBC Hgb Hct MCV MCH MCHC RDW Plt Count MPV Gran % Lymph % (Auto) Crowley % (Auto) Eos % (Auto) Baso % (Auto) Gran # Lymph # (Auto) Crowley # (Auto) Eos # (Auto) Baso # (Auto) APTT pO2 VBG pH VBG pCO2 VBG HCO3 VBG Total CO2 VBG O2 Sat (Calc) VBG Base Excess VBG Potassium Sodium Chloride Glucose Lactate FiO2 Potassium Carbon Dioxide Anion Gap BUN Creatinine Est GFR ( Amer) Est GFR (Non-Af Amer) POC Glucose (mg/dL) Random Glucose Hemoglobin A1c Calcium Phosphorus 3.5 Magnesium 2.1 Iron TIBC % Saturation Transferrin 156.88 L Ferritin 247.0 Total Bilirubin AST ALT Alkaline Phosphatase Total Protein Albumin Globulin Albumin/Globulin Ratio Triglycerides Cholesterol LDL Cholesterol Direct HDL Cholesterol Procalcitonin < 0.05 L Venous Blood Potassium 12/04/17 12/04/17 12/04/17 16:00 16:24 16:30 WBC RBC Hgb Hct MCV MCH MCHC RDW Plt Count MPV Gran % Lymph % (Auto) Crowley % (Auto) Eos % (Auto) Baso % (Auto) Gran # Lymph # (Auto) Crowley # (Auto) Eos # (Auto) Baso # (Auto) APTT pO2 31 VBG pH 7.35 VBG pCO2 50.0 VBG HCO3 27.6 VBG Total CO2 29.1 H VBG O2 Sat (Calc) 65.3 H VBG Base Excess 1.2 VBG Potassium 4.6 Sodium 134.0 Chloride 102.0 Glucose 203 H Lactate 1.2 FiO2 21.0 Potassium Carbon Dioxide Anion Gap BUN Creatinine Est GFR ( Amer) Est GFR (Non-Af Amer) POC Glucose (mg/dL) 183 H Random Glucose Hemoglobin A1c Calcium Phosphorus Magnesium Iron 19 L TIBC 222 L % Saturation 9 L Transferrin Ferritin Total Bilirubin AST ALT Alkaline Phosphatase Total Protein Albumin Globulin Albumin/Globulin Ratio Triglycerides Cholesterol LDL Cholesterol Direct HDL Cholesterol Procalcitonin Venous Blood Potassium 4.6 12/04/17 12/04/17 12/05/17 18:00 21:34 07:10 WBC RBC Hgb Hct MCV MCH MCHC RDW Plt Count MPV Gran % Lymph % (Auto) Crowley % (Auto) Eos % (Auto) Baso % (Auto) Gran # Lymph # (Auto) Crowley # (Auto) Eos # (Auto) Baso # (Auto) APTT pO2 VBG pH VBG pCO2 VBG HCO3 VBG Total CO2 VBG O2 Sat (Calc) VBG Base Excess VBG Potassium Sodium Chloride Glucose Lactate FiO2 Potassium 4.5 Carbon Dioxide Anion Gap BUN Creatinine Est GFR ( Amer) Est GFR (Non-Af Amer) POC Glucose (mg/dL) 144 H 120 H Random Glucose Hemoglobin A1c Calcium Phosphorus Magnesium Iron TIBC % Saturation Transferrin Ferritin Total Bilirubin AST ALT Alkaline Phosphatase Total Protein Albumin Globulin Albumin/Globulin Ratio Triglycerides Cholesterol LDL Cholesterol Direct HDL Cholesterol Procalcitonin Venous Blood Potassium 12/05/17 12/05/17 12/05/17 07:30 07:30 07:30 WBC 10.6 RBC 3.57 Hgb 11.5 L Hct 32.9 L MCV 92.2 MCH 32.2 MCHC 35.0 RDW 12.3 Plt Count 206 MPV 9.9 Gran % 69.1 H Lymph % (Auto) 22.3 Crowley % (Auto) 7.4 H Eos % (Auto) 0.9 L Baso % (Auto) 0.3 Gran # 7.29 H Lymph # (Auto) 2.4 Crowley # (Auto) 0.8 H Eos # (Auto) 0.1 Baso # (Auto) 0.03 APTT 28.3 pO2 VBG pH VBG pCO2 VBG HCO3 VBG Total CO2 VBG O2 Sat (Calc) VBG Base Excess VBG Potassium Sodium 138 Chloride 104 Glucose Lactate FiO2 Potassium 4.1 Carbon Dioxide 24 Anion Gap 14 BUN 17 Creatinine 1.2 Est GFR ( Amer) > 60 Est GFR (Non-Af Amer) > 60 POC Glucose (mg/dL) Random Glucose 133 H Hemoglobin A1c Calcium 8.5 Phosphorus Magnesium Iron TIBC % Saturation Transferrin Ferritin Total Bilirubin 0.7 AST 18 ALT 17 Alkaline Phosphatase 74 Total Protein 6.6 Albumin 3.4 Globulin 3.2 Albumin/Globulin Ratio 1.1 Triglycerides 61 Cholesterol 121 L LDL Cholesterol Direct 68 HDL Cholesterol 34 Procalcitonin Venous Blood Potassium 12/05/17 08:13 WBC RBC Hgb Hct MCV MCH MCHC RDW Plt Count MPV Gran % Lymph % (Auto) Crowley % (Auto) Eos % (Auto) Baso % (Auto) Gran # Lymph # (Auto) Crowley # (Auto) Eos # (Auto) Baso # (Auto) APTT pO2 VBG pH VBG pCO2 VBG HCO3 VBG Total CO2 VBG O2 Sat (Calc) VBG Base Excess VBG Potassium Sodium Chloride Glucose Lactate FiO2 Potassium Carbon Dioxide Anion Gap BUN Creatinine Est GFR ( Amer) Est GFR (Non-Af Amer) POC Glucose (mg/dL) Random Glucose Hemoglobin A1c 10.2 H Calcium Phosphorus Magnesium Iron TIBC % Saturation Transferrin Ferritin Total Bilirubin AST ALT Alkaline Phosphatase Total Protein Albumin Globulin Albumin/Globulin Ratio Triglycerides Cholesterol LDL Cholesterol Direct HDL Cholesterol Procalcitonin Venous Blood Potassium Assessment & Plan - Assessment and Plan (Free Text) Assessment: 62M with left foot 1st metatarsal medial ulceration and 5th digit gangrene Plan: Patient seen and evaluated Discussed with attending, Dr. Jauregui Afebrile, WBC 10.6 (trending downwards, yesterday 13.1), ESR 78, A1c 10.2 Left foot XR: No definitive cortical changes however OM cannot be excluded LLE venous doppler: Negative for DVT Left foot WCx: (prelim) gram positive cocci LLE MRI ordered Bilateral arterial duplex ordered Vascular consulted, f/u recs Continue IV abx; ID consulted, f/u recs Continue local wound care -betadine, DSD L foot Podiatry will continue to follow <Jian Jauregui - Last Filed: 12/13/17 10:26> Meds - Medications Medications: Current Medications Acetaminophen (Tylenol 325mg Tab) 650 mg PO Q6H PRN PRN Reason: Pain, Mild (1-3) Last Admin: 12/12/17 12:08 Dose: 650 mg Amlodipine Besylate (Norvasc) 10 mg PO DAILY [facility] Last Admin: 12/13/17 09:58 Dose: 10 mg Ascorbic Acid (Vitamin C 500 Mg Tab) 500 mg PO DAILY [facility] Last Admin: 12/13/17 10:00 Dose: 500 mg Docusate Sodium (Colace) 100 mg PO BID [facility] Last Admin: 12/13/17 09:57 Dose: 100 mg Famotidine (Pepcid) 20 mg PO 1000,2200 [facility] Last Admin: 12/13/17 09:59 Dose: 20 mg Heparin Sodium (Porcine) (Heparin) 5,000 units SC Q8 [facility] PRN Reason: Protocol Last Admin: 12/13/17 05:36 Dose: 5,000 units Hydralazine HCl (Apresoline) 10 mg PO QID PRN PRN Reason: for sbp>170 Ceftaroline Fosamil 600 mg/ (Sodium Chloride) 100 mls @ 100 mls/hr IVPB Q12 [facility] PRN Reason: Protocol Stop: 12/14/17 17:01 Last Admin: 12/13/17 09:56 Dose: 100 mls/hr Insulin Human Lispro (Humalog Low) 0 units SC ACHS [facility] PRN Reason: Protocol Last Admin: 12/13/17 09:58 Dose: Not Given Lisinopril (Zestril) 20 mg PO DAILY [facility] Last Admin: 12/13/17 10:00 Dose: 20 mg Metformin HCl (Glucophage) 500 mg PO BID [facility] Last Admin: 12/13/17 09:58 Dose: 500 mg Mupirocin (Bactroban Ointment) 0 gm TOP BID [facility] Last Admin: 12/09/17 09:41 Dose: Not Given Thiamine HCl (Vitamin B1 Tab) 100 mg PO DAILY [facility] Last Admin: 12/13/17 10:00 Dose: Not Given Results - Vital Signs Recent Vital Signs: Last Vital Signs Temp 98.2 F 12/13/17 08:54 Pulse 61 12/13/17 10:00 Resp 20 12/13/17 08:54 BP 144/74 12/13/17 10:00 Pulse Ox 99 12/13/17 08:54 - Labs Result Diagrams: 12/13/17 07:30 12/13/17 07:30 Labs: Laboratory Results - last 24 hr 12/12/17 12/12/17 12/12/17 11:06 15:48 21:10 WBC RBC Hgb Hct MCV MCH MCHC RDW Plt Count MPV Sodium Potassium Chloride Carbon Dioxide Anion Gap BUN Creatinine Est GFR ( Amer) Est GFR (Non-Af Amer) POC Glucose (mg/dL) 198 H 133 H 237 H Random Glucose Calcium 12/13/17 12/13/17 12/13/17 06:46 07:30 07:30 WBC 8.0 RBC 3.50 Hgb 11.0 L Hct 32.2 L MCV 92.0 MCH 31.4 MCHC 34.2 RDW 12.3 Plt Count 274 MPV 9.2 Sodium 137 Potassium 4.5 Chloride 101 Carbon Dioxide 27 Anion Gap 14 BUN 19 Creatinine 1.3 Est GFR ( Amer) > 60 Est GFR (Non-Af Amer) 56 POC Glucose (mg/dL) 147 H Random Glucose 164 H Calcium 8.7 Assessment & Plan - Assessment and Plan (Free Text) Plan: Patient was seen at my office over the weekend with bad cellulitis and wound with gangrene changes. Patient did not see PCP in 5 years and history of diabetes uncontrolled and infection. Discussed patient immediately to go to ER for admission. discussed with patinet that the toe and other areas of infection in need of surgical intervention and more comfortable with admission and further health work up as well.
--- NOTE | 2017-12-05 16:18 | CP.PCM.PCO ---
Physician Communication Note - Physician Communication Note Physician Communication Note: Incorrect international banker consulted (Dr. Mayer) - consult placed to Dr. Jauregui
[2017-12-05] MEDS ORDERED: Piperacill/Tazo 4.5gm in NS 4.5 GM/100 ML BAG IVPB SCH (18:00)
[2017-12-05] MEDS: Ceftaroline 600 MG in Sodium Chloride 0.9% 100 ML IVPB SCH (18:14)
--- NOTE | 2017-12-05 20:44 | US ---
PROCEDURE: Left lower extremity venous US HISTORY: Leg pain and swelling. Evaluate for DVT. PHYSICIAN(S): Willam Jack MD. TECHNIQUE: Duplex sonography and color-flow Doppler with graded compression were used to evaluate the deep venous system of the left lower extremity. Evaluation of the tibial veins is limited by edema FINDINGS: The visualized deep venous system of the left lower extremity is sonographically normal and compressible. Normal wave forms and augmentation are seen. There is no sonographic evidence for deep venous thrombosis in the visualized segments of the left lower extremity. IMPRESSION: 1. No sonographic evidence for deep venous thrombosis in the visualized segments of the left lower extremity.
--- NOTE | 2017-12-06 04:31 | CON ---
DATE: 12/05/2017 LOCATION: The patient was seen earlier this morning in room 578, bed 2. CHIEF COMPLAINT: Left foot infection x2 weeks duration. HISTORY OF PRESENT ILLNESS: This is a 62-year-old male with diabetes and diabetic neuropathy and was told that he was diabetic many years ago. He never sought any medical care and he is a long time ex-smoker and alcohol user also with cardiac disease and hypertension, has presented for foot infection. REVIEW OF SYSTEMS: Reveals the patient has low-grade fevers, occasional chills. No chest pain. No shortness of breath. No cough. PAST MEDICAL HISTORY: Significant for diabetes mellitus, diabetic neuropathy, coronary artery disease, hypertension. PAST SURGICAL HISTORY: Noncontributory. He states he has never had any surgery. ALLERGIES: PATIENT HAS NO KNOWN ALLERGIES TO ANY ANTIBIOTICS. MEDICATIONS AT HOME: he takes no medications at home. SOCIAL HISTORY: He has no recent travel. 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 PHYSICAL EXAMINATION: VITAL SIGNS: Temperature is 99, blood pressure is 140/90, respiratory rate of 20, heart rate of . HEENT: Unremarkable. NECK: Supple. LUNGS: Had decreased breath sounds. HEART: Normal S1, S2. ABDOMEN: Soft, nontender. EXTREMITIES: On examination of left foot reveals a left fifth toe is gangrenous with left foot has had edema and erythema, warm to touch and pulses are present. LABORATORY EXAMINATION: Reveals the white count of 13,100, hemoglobin of 12, platelets of 229. Sed rate is 78. Coagulation is noted. Chemistries revealed BUN of 17, creatinine is 1.2, it was 1.3 yesterday and with cholesterol 121. Patient's blood sugar is 180. Hemoglobin A1c is 10.2. Urinalysis has protein in the urine, glucose, 1 to 3 wbc's. Microbiology reveals the blood cultures are negative. The foot cultures have Gram-positive cocci. ASSESSMENT AND PLAN: This is a 62-year-old male who is diabetic, hypertensive, coronary artery disease, diabetic neuropathy with proteinuria, renal disease, renal insufficiency, NO KNOWN ALLERGIES, now with left leg cellulitis and left leg fifth toe gangrene, must rule out underlying osteomyelitis, must rule out underlying peripheral vascular disease, patient has a Gram-positive cocci. We will discontinue the vancomycin and Zosyn. Patient is at high risk of acute renal failure. We will treat with Teflaro. Should have arterial studies, venous studies, MRI and Podiatric and Vascular consultation. Should have an human immunodeficiency virus test because of his age and we will make further recommendations upon availability of initial results. Dada Dorsey MD
[2017-12-06 07:23] LABS: BASO # 0.02 K/mm3 (0.0-2.0); BASO % 0.2 % (0.0-3.0); EOS # 0.1 (0.0-0.7); EOS % 0.9 % (1.5-5.0); GRAN # 6.5 (1.4-6.5); GRAN % 68.6 % (50.0-68.0); HEMOGLOBIN 11.4 g/dL (14.0-18.0); LYMPH # 2.3 (1.2-3.4); LYMPH % 24.3 % (22.0-35.0); MEAN CELL VOLUME 92.1 fl (80.0-105.0); MEAN CORPUSCULAR HEMOGLOBIN 32.2 pg (25.0-35.0); MEAN PLATELET VOLUME 9.8 fl (7.0-11.0); MONO # 0.6 (0.1-0.6); RBC 3.54 10^6/uL (3.5-6.1); RED CELL DISTRIBUTION WIDTH 12.3 % (11.5-14.5); WHITE BLOOD COUNT 9.5 10^3/ul (4.5-11.0)
[2017-12-06 07:56] LABS: ALB/GLOB RATIO 1.1 (1.1-1.8); ALBUMIN 3.4 g/dL (3.0-4.8); ALT/SGPT 21 U/L (7-56); AST/SGOT 22 U/L (17-59); BLOOD UREA NITROGEN 17 mg/dL (7-21); CALCIUM 8.6 mg/dL (8.4-10.5); GFR AFRICAN-AMERICAN > 60; GFR NON-AFRICAN AMERICAN > 60
[2017-12-06] MEDS: Insulin Lispro (humaLOG) LOW Coverage SC SCH ×4 (09:01→21:51)
[2017-12-06] MEDS: Ceftaroline 600 MG in Sodium Chloride 0.9% 100 ML IVPB SCH ×2 (09:50→21:48)
[2017-12-06] MEDS ORDERED: Gadodiamide 287 MG/ML VIAL (15ML) IV ONE (11:17)
--- NOTE | 2017-12-06 12:08 | US ---
PROCEDURE: Lower extremity MYRON exam HISTORY: Peripheral vascular disease with left 5th toe gangrene. Diabetes. Smoker. PHYSICIAN(S): Willam Jack MD. FINDINGS: The resting MYRON's are normal: right, 1.24and left, 1.04. The brachial systolic pressures are symmetric. The high thigh pressures are noncompressible. The high thigh PVR waveforms are normal and symmetric. The calf PVR waveforms augment normally. No significant gradients are noted across the thighs. The ankle and metatarsal waveforms are normal and symmetric. No significant gradients are seen. The metatarsal waveforms are mildly to moderately blunted, greater on the left. This could represent left pedal occlusive disease. IMPRESSION: 1. Relatively normal MYRON and PVR examination at rest. 2. Possible left pedal occlusive disease.
--- NOTE | 2017-12-06 13:26 | CP.PCM.PN ---
<Cole Gramajo - Last Filed: 12/06/17 13:22> Subjective - Date & Time of Evaluation Date of Evaluation: 12/06/17 Time of Evaluation: 13:22 - Subjective Subjective: Patient seen and examined this AM. No acute events overnight. Patient to go for imaging today. Denies chest piain, shortness of breath, abdominal pain, numbness , fevre, chills, nausea and vomiting. Objective - Vital Signs/Intake and Output Vital Signs (last 24 hours): Temp Pulse Resp BP Pulse Ox 98.3 F 60 20 130/75 97 12/06/17 08:09 12/06/17 09:54 12/06/17 08:09 12/06/17 09:54 12/06/17 08:09 Intake and Output: 12/06/17 12/06/17 06:59 18:59 Intake Total 840 Output Total 600 Balance 240 - Medications Medications: Current Medications Ascorbic Acid (Vitamin C 500 Mg Tab) 500 mg PO DAILY [facility] Last Admin: 12/06/17 09:50 Dose: 500 mg Famotidine (Pepcid) 20 mg PO 1000,2200 [facility] Last Admin: 12/06/17 09:54 Dose: 20 mg Heparin Sodium (Porcine) (Heparin) 5,000 units SC Q8 [facility] PRN Reason: Protocol Last Admin: 12/06/17 05:49 Dose: 5,000 units Ceftaroline Fosamil 600 mg/ (Sodium Chloride) 100 mls @ 100 mls/hr IVPB Q12 [facility] PRN Reason: Protocol Stop: 12/14/17 17:01 Last Admin: 12/06/17 09:50 Dose: 100 mls/hr Insulin Human Lispro (Humalog Low) 0 units SC ACHS [facility] PRN Reason: Protocol Last Admin: 12/06/17 09:01 Dose: Not Given Lisinopril (Zestril) 5 mg PO DAILY [facility] Last Admin: 12/06/17 09:54 Dose: 5 mg Mupirocin (Bactroban Ointment) 0 gm TOP BID [facility] Last Admin: 12/05/17 17:54 Dose: Not Given Thiamine HCl (Vitamin B1 Tab) 100 mg PO DAILY [facility] Last Admin: 12/06/17 09:50 Dose: 100 mg - Labs Labs: 12/06/17 06:45 12/06/17 06:45 PT 12.9 SECONDS (9.4-12.5) H 12/04/17 13:13 INR 1.12 (0.93-1.08) H 12/04/17 13:13 APTT 28.3 Seconds (25.1-36.5) 12/05/17 07:30 - Constitutional Appears: Non-toxic - Head Exam Head Exam: ATRAUMATIC, NORMAL INSPECTION, NORMOCEPHALIC - Eye Exam Eye Exam: EOMI, PERRL - Respiratory Exam Respiratory Exam: Clear to Ausculation Bilateral, NORMAL BREATHING PATTERN. absent: Rhonchi, Wheezes - Cardiovascular Exam Cardiovascular Exam: REGULAR RHYTHM, +S1, +S2 - GI/Abdominal Exam GI & Abdominal Exam: Soft, Normal Bowel Sounds. absent: Tenderness - Extremities Exam Extremities Exam: Normal Inspection. absent: Calf Tenderness, Pedal Edema - Neurological Exam Neurological Exam: Alert, Awake, Oriented x3 - Psychiatric Exam Psychiatric exam: Normal Affect, Normal Mood - Skin Skin Exam: Dry, Warm Additional comments: left fifth digit with dry gangrene, medial ulcer on left foot at distal portion that is non purulent non erythematous Assessment and Plan - Assessment and Plan (Free Text) Assessment: 62 year old male with no past medical history who presented with 2 week history of left foot swelling and skin changes of his left fifth toe. Patient admitted for suspected cellulitis vs. OM. Pt on IV antibiotics, podiatry and ID consulted. Patient to undergo further testing and imaging today. Plan: Cellulitis of Left foot/Left fifth toe dry gangrene Details: - Left foot xray: No acute fracture, mild diffuse circumferential soft tissue swelling nonspecific, no definitive cortical destructive changes however unable to r/o OM - LE dopplers: negative for DVT - Left foot wound clx: pending final, moderate gram + cocci, moderate gram - rods - ESR and CRP elevated - ID Consulted - Podiatry Consulted - Afebrile Plan: - ID place patient on Teflaro - f/u ID and Podiatry recs - Consider MRI of left foot - MRI pending, f/u - Vascular study pending, f/u - PT Anemia Details: - Normocytic anemia - Iron studies point towards ACD Plan: - Monitor DM2 - Lisinopril - ISS - ACHS GI ppx: Pepcid DVT ppx: Heparin Q8 Case and plan discussed with attending <Heena Moreno - Last Filed: 12/06/17 15:01> Objective - Vital Signs/Intake and Output Vital Signs (last 24 hours): Temp Pulse Resp BP Pulse Ox 98.3 F 60 20 130/75 97 12/06/17 08:09 12/06/17 09:54 12/06/17 08:09 12/06/17 09:54 12/06/17 08:09 Intake and Output: 12/06/17 12/06/17 06:59 18:59 Intake Total 840 Output Total 600 Balance 240 - Medications Medications: Current Medications Ascorbic Acid (Vitamin C 500 Mg Tab) 500 mg PO DAILY [facility] Last Admin: 12/06/17 09:50 Dose: 500 mg Famotidine (Pepcid) 20 mg PO 1000,2200 [facility] Last Admin: 12/06/17 09:54 Dose: 20 mg Heparin Sodium (Porcine) (Heparin) 5,000 units SC Q8 [facility] PRN Reason: Protocol Last Admin: 12/06/17 14:22 Dose: 5,000 units Ceftaroline Fosamil 600 mg/ (Sodium Chloride) 100 mls @ 100 mls/hr IVPB Q12 [facility] PRN Reason: Protocol Stop: 12/14/17 17:01 Last Admin: 12/06/17 09:50 Dose: 100 mls/hr Insulin Human Lispro (Humalog Low) 0 units SC ACHS [facility] PRN Reason: Protocol Last Admin: 12/06/17 11:24 Dose: Not Given Lisinopril (Zestril) 5 mg PO DAILY [facility] Last Admin: 12/06/17 09:54 Dose: 5 mg Mupirocin (Bactroban Ointment) 0 gm TOP BID [facility] Last Admin: 12/06/17 14:23 Dose: 1 appl Thiamine HCl (Vitamin B1 Tab) 100 mg PO DAILY [facility] Last Admin: 12/06/17 09:50 Dose: 100 mg - Labs Labs: 12/06/17 06:45 12/06/17 06:45 PT 12.9 SECONDS (9.4-12.5) H 12/04/17 13:13 INR 1.12 (0.93-1.08) H 12/04/17 13:13 APTT 28.3 Seconds (25.1-36.5) 12/05/17 07:30 Attending/Attestation - Attestation I have personally seen and examined this patient.: Yes I have fully participated in the care of the patient.: Yes I have reviewed all pertinent clinical information, including history, physical exam and plan: Yes Notes (Text): 12/06/17 14:58 62 year old male who was admitted with diabetic foot ulceration with infection/ dry gangrene of little toe and cellulitis on leg. Continue with iv antibiotics as per ID and wound care as per podiatry. Dopplers studies were reviewed and IR/vascular evaluation was appreciated. MRI was done this morning with pending result. Continue with insulin ss while awaiting A1c. Heena Moreno MD Hospitalist.
--- NOTE | 2017-12-06 14:02 | CON ---
DATE: 12/06/2017 TIME: 12:15 p.m. CHIEF COMPLAINT/HISTORY OF PRESENT ILLNESS: This is a 62-year-old gentleman with a limited past medical history, who presents with dry gangrene of his left fifth digit. This started approximately 2 weeks ago. He was seen by Dr. Jauregui in the office on Wednesday and admitted for further evaluation and IV antibiotics. Mr. Baez smokes approximately 1/2 pack per day. His hemoglobin A1c is 10.2. He does not have a prior diagnosis of diabetes. On physical exam, his femoral and popliteal pulses are palpable. His right dorsalis pedis pulse is palpable. His left pedal pulses are not easily palpable, which may be related to swelling. He has dry gangrene of the left fifth toe. The toe does not appear to be salvageable. There is swelling and erythema to the mackenzie. Mr. Baez's MYRON/PVR exam is relatively normal. Right MYRON is 1.24 and left MYRON is 1.04. The PVR waveforms are normal to the ankle. There is mild blunting of the left metatarsal waveform, which could represent left pedal occlusive disease. Mr. Baez's creatinine is normal. At the present time, I do not feel that further vascular workup is necessary. This mostly represents small vessel disease, neuropathy. and infection. I had a long conversation with Mr. Baez concerning his diabetes and smoking. A digital amputation would be appropriate once the infection is under control. Willam Jack MD MTDMiguel Ángel
--- NOTE | 2017-12-06 15:24 | MRI ---
PROCEDURE: MRI of the left foot with and without contrast HISTORY: r/o left foot abscess COMPARISON: Plain films dated 12/04/2017 TECHNIQUE: MRI of the left foot was performed in multiple planes using multiple pulse sequences. 15 cc of Omniscan were injected FINDINGS: There is minimal marrow edema and abnormal T1 signal intensity in the 5th proximal middle and distal phalanx. This is suspicious for early osteomyelitis. The remaining toes and metatarsals are unremarkable. There is a moderate amount of subcutaneous edema over the dorsum of the foot. IMPRESSION: Marrow edema in the 5th toe suspicious for osteomyelitis
--- NOTE | 2017-12-06 16:48 | CP.PCM.PN ---
Subjective - Date & Time of Evaluation Date of Evaluation: 12/06/17 Time of Evaluation: 16:44 - Subjective Subjective: Podiatry Progress note: Dr. Jauregui 62 year old male patient was seen and evaluated at bedside for left foot wound and darkened 5th digit. Patient is AAOx3 and is in NAD. Patient is seen with his at bedside. Denies of any pain to the foot today. Reports that he had multiple tests done. Denies of having any recent F/N/V/C/SOB/CP/headache. Denies of any other pedal complains now. Objective - Vital Signs/Intake and Output Vital Signs (last 24 hours): Temp Pulse Resp BP Pulse Ox 97 F L 52 L 18 139/70 98 12/06/17 14:00 12/06/17 14:00 12/06/17 14:00 12/06/17 14:00 12/06/17 14:00 Intake and Output: 12/06/17 12/06/17 06:59 18:59 Intake Total 840 540 Output Total 600 Balance 240 540 - Medications Medications: Current Medications Ascorbic Acid (Vitamin C 500 Mg Tab) 500 mg PO DAILY [facility] Last Admin: 12/06/17 09:50 Dose: 500 mg Famotidine (Pepcid) 20 mg PO 1000,2200 [facility] Last Admin: 12/06/17 09:54 Dose: 20 mg Heparin Sodium (Porcine) (Heparin) 5,000 units SC Q8 [facility] PRN Reason: Protocol Last Admin: 12/06/17 14:22 Dose: 5,000 units Ceftaroline Fosamil 600 mg/ (Sodium Chloride) 100 mls @ 100 mls/hr IVPB Q12 [facility] PRN Reason: Protocol Stop: 12/14/17 17:01 Last Admin: 12/06/17 09:50 Dose: 100 mls/hr Insulin Human Lispro (Humalog Low) 0 units SC ACHS [facility] PRN Reason: Protocol Last Admin: 12/06/17 11:24 Dose: Not Given Lisinopril (Zestril) 5 mg PO DAILY [facility] Last Admin: 12/06/17 09:54 Dose: 5 mg Mupirocin (Bactroban Ointment) 0 gm TOP BID [facility] Last Admin: 12/06/17 14:23 Dose: 1 appl Thiamine HCl (Vitamin B1 Tab) 100 mg PO DAILY [facility] Last Admin: 12/06/17 09:50 Dose: 100 mg - Labs Labs: 12/06/17 06:45 12/06/17 06:45 PT 12.9 SECONDS (9.4-12.5) H 12/04/17 13:13 INR 1.12 (0.93-1.08) H 12/04/17 13:13 APTT 28.3 Seconds (25.1-36.5) 12/05/17 07:30 - Constitutional Appears: Well, Non-toxic, No Acute Distress - Extremities Exam Additional comments: Dressing is clean, dry and intact - changed by the nurse soon before seen the patient - Neurological Exam Neurological Exam: Alert, Awake, Oriented x3 - Psychiatric Exam Psychiatric exam: Normal Affect, Normal Mood Assessment and Plan - Assessment and Plan (Free Text) Assessment: 62 year old male with left foot 1st metatarsal medial ulceration and 5th digit gangrene Plan: Patient seen and evaluated Discussed with attending, Dr. Jauregui Afebrile, WBC 9.5 Left foot XR: No definitive cortical changes however OM cannot be excluded LLE venous doppler: Negative for DVT Left foot WCx: MRSA Continue IV abx; ID consulted, f/u recs LLE MRI ordered - Suggestive of 5th digit OM Bilateral arterial duplex ordered Vascular consulted, f/u recs - Normal MYRON/PVR; possible left pedal occlusive disease Continue local wound care -betadine, DSD L foot Podiatry will continue to follow
--- NOTE | 2017-12-06 18:32 | CP.PCM.PN ---
Subjective - Date & Time of Evaluation Date of Evaluation: 12/06/17 Time of Evaluation: 13:10 - Subjective Subjective: No fevers, no pain in the foot currently, no nausea. Objective - Vital Signs/Intake and Output Vital Signs (last 24 hours): Temp Pulse Resp BP Pulse Ox 97 F L 52 L 18 139/70 98 12/06/17 14:00 12/06/17 14:00 12/06/17 14:00 12/06/17 14:00 12/06/17 14:00 Intake and Output: 12/06/17 12/06/17 06:59 18:59 Intake Total 840 540 Output Total 600 Balance 240 540 - Medications Medications: Current Medications Ascorbic Acid (Vitamin C 500 Mg Tab) 500 mg PO DAILY [facility] Last Admin: 12/06/17 09:50 Dose: 500 mg Famotidine (Pepcid) 20 mg PO 1000,2200 [facility] Last Admin: 12/06/17 09:54 Dose: 20 mg Heparin Sodium (Porcine) (Heparin) 5,000 units SC Q8 [facility] PRN Reason: Protocol Last Admin: 12/06/17 14:22 Dose: 5,000 units Ceftaroline Fosamil 600 mg/ (Sodium Chloride) 100 mls @ 100 mls/hr IVPB Q12 [facility] PRN Reason: Protocol Stop: 12/14/17 17:01 Last Admin: 12/06/17 09:50 Dose: 100 mls/hr Insulin Human Lispro (Humalog Low) 0 units SC ACHS [facility] PRN Reason: Protocol Last Admin: 12/06/17 16:57 Dose: 2 units Lisinopril (Zestril) 5 mg PO DAILY [facility] Last Admin: 12/06/17 09:54 Dose: 5 mg Mupirocin (Bactroban Ointment) 0 gm TOP BID [facility] Last Admin: 12/06/17 14:23 Dose: 1 appl Thiamine HCl (Vitamin B1 Tab) 100 mg PO DAILY [facility] Last Admin: 12/06/17 09:50 Dose: 100 mg - Labs Labs: 12/06/17 06:45 12/06/17 06:45 PT 12.9 SECONDS (9.4-12.5) H 12/04/17 13:13 INR 1.12 (0.93-1.08) H 12/04/17 13:13 APTT 28.3 Seconds (25.1-36.5) 12/05/17 07:30 - Constitutional Appears: Chronically Ill - Head Exam Head Exam: NORMAL INSPECTION - Respiratory Exam Respiratory Exam: Decreased Breath Sounds - Cardiovascular Exam Cardiovascular Exam: +S1, +S2 - GI/Abdominal Exam GI & Abdominal Exam: Soft. absent: Tenderness Assessment and Plan - Assessment and Plan (Free Text) Plan: Assessment left foot 5th toe osteomyelitis with skin and skin structure infection DM peripheral neuropathy CAD HTN Plan continue Teflaro pending plan of Podiatry to do amputation on the 5th toe on the left will monitor clinically
--- NOTE | 2017-12-07 06:45 | CP.PCM.PN ---
Addendum entered and electronically signed by Brenda Oro DO 12/07/17 12:29: Echo, CXR, and cardio consult placed for risk stratification for OR Discussed with Dr. Josh Oro PGY2 Original Note: <Brenda Oro - Last Filed: 12/07/17 11:46> Subjective - Date & Time of Evaluation Date of Evaluation: 12/07/17 Time of Evaluation: 07:00 - Subjective Subjective: Pgy2 Medicine note for Dr. Moreno Patient seen and examined at bedside. No overnight acute events as per nursing. Patient denied any pain to his left foot which was wrapped and dressed 12/06. Denied acute complaints of fever, chills, headache, dizziness, chest pain, palpitations, SOB, cough, abd pain, nausea, vomiting, bowel/bladder complaints, swelling in legs b/l. Patient is tolerating diet and ambulating with his surgical shoe. He expressed poor understanding on his need for insulin and DM management stating that if he eats one meal/day he can control his sugars. Patient was spoken to in detail regarding the importance of being compliant with his DM medication regimen and how to control his sugars and will be counseled by DM educator as well. Objective - Vital Signs/Intake and Output Vital Signs (last 24 hours): Temp Pulse Resp BP Pulse Ox 98.9 F 59 L 20 143/71 95 12/06/17 22:00 12/06/17 22:00 12/06/17 22:00 12/06/17 22:00 12/06/17 22:00 Intake and Output: 12/06/17 12/07/17 18:59 06:59 Intake Total 540 420 Balance 540 420 - Medications Medications: Current Medications Ascorbic Acid (Vitamin C 500 Mg Tab) 500 mg PO DAILY [facility] Last Admin: 12/06/17 09:50 Dose: 500 mg Famotidine (Pepcid) 20 mg PO 1000,2200 [facility] Last Admin: 12/06/17 21:47 Dose: 20 mg Heparin Sodium (Porcine) (Heparin) 5,000 units SC Q8 [facility] PRN Reason: Protocol Last Admin: 12/07/17 06:27 Dose: 5,000 units Ceftaroline Fosamil 600 mg/ (Sodium Chloride) 100 mls @ 100 mls/hr IVPB Q12 [facility] PRN Reason: Protocol Stop: 12/14/17 17:01 Last Admin: 12/06/17 21:48 Dose: 100 mls/hr Insulin Human Lispro (Humalog Low) 0 units SC ACHS [facility] PRN Reason: Protocol Last Admin: 12/06/17 21:51 Dose: Not Given Lisinopril (Zestril) 5 mg PO DAILY [facility] Last Admin: 12/06/17 09:54 Dose: 5 mg Mupirocin (Bactroban Ointment) 0 gm TOP BID [facility] Last Admin: 12/06/17 18:46 Dose: Not Given Thiamine HCl (Vitamin B1 Tab) 100 mg PO DAILY [facility] Last Admin: 12/06/17 09:50 Dose: 100 mg - Labs Labs: 12/06/17 06:45 12/06/17 06:45 PT 12.9 SECONDS (9.4-12.5) H 12/04/17 13:13 INR 1.12 (0.93-1.08) H 12/04/17 13:13 APTT 28.3 Seconds (25.1-36.5) 12/05/17 07:30 - Constitutional Appears: Non-toxic, No Acute Distress - Head Exam Head Exam: ATRAUMATIC, NORMAL INSPECTION, NORMOCEPHALIC - Eye Exam Eye Exam: EOMI, Normal appearance, PERRL. absent: Conjunctival injection - ENT Exam ENT Exam: Mucous Membranes Moist - Neck Exam Neck Exam: Normal Inspection - Respiratory Exam Respiratory Exam: Clear to Ausculation Bilateral, NORMAL BREATHING PATTERN. absent: Accessory Muscle Use, Rales, Rhonchi, Wheezes, Respiratory Distress - Cardiovascular Exam Cardiovascular Exam: REGULAR RHYTHM, RRR, +S1, +S2 - GI/Abdominal Exam GI & Abdominal Exam: Soft, Normal Bowel Sounds. absent: Firm, Guarding, Rigid, Tenderness - Rectal Exam Rectal Exam: Deferred - Extremities Exam Extremities Exam: absent: Pedal Edema, Tenderness Additional comments: L foot wrapped in gauze - Neurological Exam Neurological Exam: Alert, Awake, CN II-XII Intact, Oriented x3 - Psychiatric Exam Psychiatric exam: Normal Affect, Normal Mood - Skin Skin Exam: Dry, Warm Assessment and Plan - Assessment and Plan (Free Text) Assessment: 62yo male with no PMHx not on any home meds presents with 2 week history of left fifth metatarsal swelling and change in color. Patient admitted to med/ surg for suspected cellulitis vs. OM Plan: Cellulitis of Left foot/Left fifth toe dry gangrene Details: - Left foot MRI: marrow edema of 5th metatarsal- suggestive for osteomyelitis - Left extremity arterial studies: Normal MYRON/PVR; possible left pedal occlusive disease - Left foot xray: No acute fracture, mild diffuse circumferential soft tissue swelling nonspecific, no definitive cortical destructive changes however unable to r/o OM - LE dopplers: negative for DVT - Left foot wound culture: +MRSA - Urine and Blood culture: negative - ESR and CRP elevated - ID Consulted - Podiatry Consulted Plan: - Continue Teflaro as per ID q12 - Continue vitamin C and thiamine qdaily - As per podiatry: plan is for left 5th digit amputation upon full demarcation - Continue local wound care: betadine, DSD Anemia Details: - Normocytic anemia - Iron studies point towards ACD Plan: - Monitor DM2 Details: - HgbA1c: 10.2 - patient not on any home medications and has poor understanding of DM management Plan: - DM educator - RISS low dose - Accucheck ACHS - Lisinopril 5mg qd - Consider long acting insulin depending on coverage during the day - ALF diet GI ppx: Pepcid DVT ppx: Heparin Q8 Discussed [address] Josh Oro PGY2 <Heena Moreno - Last Filed: 12/07/17 13:33> Objective - Vital Signs/Intake and Output Vital Signs (last 24 hours): Temp Pulse Resp BP Pulse Ox 98.4 F 61 20 131/64 98 12/07/17 08:38 12/07/17 08:38 12/07/17 08:38 12/07/17 08:38 12/07/17 08:38 Intake and Output: 12/07/17 12/07/17 06:59 18:59 Intake Total 780 Balance 780 - Medications Medications: Current Medications Ascorbic Acid (Vitamin C 500 Mg Tab) 500 mg PO DAILY [facility] Last Admin: 12/07/17 10:51 Dose: 500 mg Famotidine (Pepcid) 20 mg PO 1000,2200 [facility] Last Admin: 12/07/17 10:50 Dose: 20 mg Heparin Sodium (Porcine) (Heparin) 5,000 units SC Q8 [facility] PRN Reason: Protocol Last Admin: 12/07/17 06:27 Dose: 5,000 units Ceftaroline Fosamil 600 mg/ (Sodium Chloride) 100 mls @ 100 mls/hr IVPB Q12 [facility] PRN Reason: Protocol Stop: 12/14/17 17:01 Last Admin: 12/07/17 10:50 Dose: 100 mls/hr Insulin Human Lispro (Humalog Low) 0 units SC ACHS [facility] PRN Reason: Protocol Last Admin: 12/07/17 12:14 Dose: 2 units Lisinopril (Zestril) 5 mg PO DAILY [facility] Last Admin: 12/07/17 10:50 Dose: 5 mg Mupirocin (Bactroban Ointment) 0 gm TOP BID [facility] Last Admin: 12/06/17 18:46 Dose: Not Given Thiamine HCl (Vitamin B1 Tab) 100 mg PO DAILY [facility] Last Admin: 12/07/17 10:50 Dose: 100 mg - Labs Labs: 12/07/17 07:20 12/07/17 07:20 PT 12.9 SECONDS (9.4-12.5) H 12/04/17 13:13 INR 1.12 (0.93-1.08) H 12/04/17 13:13 APTT 28.3 Seconds (25.1-36.5) 12/05/17 07:30 Attending/Attestation - Attestation I have personally seen and examined this patient.: Yes I have fully participated in the care of the patient.: Yes I have reviewed all pertinent clinical information, including history, physical exam and plan: Yes Notes (Text): 12/07/17 13:31 62 year old male who was admitted with diabetic foot ulceration with infection/ dry gangrene of little toe and cellulitis on leg. Continue with iv antibiotics as per ID and wound care as per podiatry. WCx +ve for MRSA. Dopplers studies were reviewed and IR/vascular evaluation was appreciated. MRI was done yesterday confirming osteomyelitis. Will follow up with ID and podiatry recommendations. A1c is elevated at 10.2. Diabetic education referral is ordered. He is currently on insulin ss. We did discuss with the patient regarding possibly starting long acting insulin which is is hesitant about starting but states he will consider. Heena Moreno MD Hospitalist.
[2017-12-07] MEDS: Insulin Lispro (humaLOG) LOW Coverage SC SCH ×3 (07:49→22:21)
[2017-12-07 07:50] LABS: BASO # 0.02 K/mm3 (0.0-2.0); BASO % 0.2 % (0.0-3.0); EOS # 0.1 (0.0-0.7); EOS % 1.1 % (1.5-5.0); GRAN # 5.76 (1.4-6.5); GRAN % 66.1 % (50.0-68.0); HEMOGLOBIN 11.2 g/dL (14.0-18.0); LYMPH # 2.1 (1.2-3.4); MEAN CORPUSCULAR HEMOGLOBIN 32.1 pg (25.0-35.0); MEAN CORPUSCULAR HGB CONC 34.9 g/dl (31.0-37.0); MEAN PLATELET VOLUME 9.6 fl (7.0-11.0); MONO # 0.8 (0.1-0.6); MONO % 8.6 % (1.0-6.0); RBC 3.49 10^6/uL (3.5-6.1); RED CELL DISTRIBUTION WIDTH 12.3 % (11.5-14.5); WHITE BLOOD COUNT 8.7 10^3/ul (4.5-11.0)
[2017-12-07 08:12] LABS: ALBUMIN 3.3 g/dL (3.0-4.8); ALT/SGPT 25 U/L (7-56); AST/SGOT 23 U/L (17-59); BLOOD UREA NITROGEN 17 mg/dL (7-21); CALCIUM 8.7 mg/dL (8.4-10.5); GFR AFRICAN-AMERICAN > 60; GFR NON-AFRICAN AMERICAN > 60
[2017-12-07] MEDS: Ceftaroline 600 MG in Sodium Chloride 0.9% 100 ML IVPB SCH ×2 (10:50→22:22)
--- NOTE | 2017-12-07 11:25 | CP.PCM.PN ---
Subjective - Date & Time of Evaluation Date of Evaluation: 12/07/17 Time of Evaluation: 11:20 - Subjective Subjective: Podiatry Progress note: Dr. Jauregui 62 year old male patient was seen and evaluated at bedside for left foot wound and darkened 5th digit. Patient is AAOx3 and is in NAD. Denies of any pain to the foot today and states that he only has pain when someone touches it. Reports that he walked a little this morning with his surgical shoe. Denies of having any recent F/N/V/C/SOB/CP/headache. Denies of any other pedal complains now. Objective - Vital Signs/Intake and Output Vital Signs (last 24 hours): Temp Pulse Resp BP Pulse Ox 98.4 F 61 20 131/64 98 12/07/17 08:38 12/07/17 08:38 12/07/17 08:38 12/07/17 08:38 12/07/17 08:38 Intake and Output: 12/07/17 12/07/17 06:59 18:59 Intake Total 780 Balance 780 - Medications Medications: Current Medications Ascorbic Acid (Vitamin C 500 Mg Tab) 500 mg PO DAILY [facility] Last Admin: 12/07/17 10:51 Dose: 500 mg Famotidine (Pepcid) 20 mg PO 1000,2200 [facility] Last Admin: 12/07/17 10:50 Dose: 20 mg Ferrous Sulfate (Feosol) 324 mg PO TID [facility] Last Admin: 12/07/17 10:49 Dose: 324 mg Heparin Sodium (Porcine) (Heparin) 5,000 units SC Q8 [facility] PRN Reason: Protocol Last Admin: 12/07/17 06:27 Dose: 5,000 units Ceftaroline Fosamil 600 mg/ (Sodium Chloride) 100 mls @ 100 mls/hr IVPB Q12 [facility] PRN Reason: Protocol Stop: 12/14/17 17:01 Last Admin: 12/07/17 10:50 Dose: 100 mls/hr Insulin Human Lispro (Humalog Low) 0 units SC ACHS [facility] PRN Reason: Protocol Last Admin: 12/07/17 07:49 Dose: 2 units Lisinopril (Zestril) 5 mg PO DAILY [facility] Last Admin: 12/07/17 10:50 Dose: 5 mg Mupirocin (Bactroban Ointment) 0 gm TOP BID [facility] Last Admin: 12/06/17 18:46 Dose: Not Given Thiamine HCl (Vitamin B1 Tab) 100 mg PO DAILY [facility] Last Admin: 12/07/17 10:50 Dose: 100 mg - Labs Labs: 12/07/17 07:20 12/07/17 07:20 PT 12.9 SECONDS (9.4-12.5) H 12/04/17 13:13 INR 1.12 (0.93-1.08) H 12/04/17 13:13 APTT 28.3 Seconds (25.1-36.5) 12/05/17 07:30 - Constitutional Appears: Well, Non-toxic, No Acute Distress - Extremities Exam Additional comments: VASC: Right DP and PT pulses palpable 2/4. Left DP and PT pulses nonpalpable secondary to edema. CFT <3 seconds to all digits right foot, digits 1-4 left foot and unable to assess 5th digit. Temperature gradient cool to cool RLE, hot to hot LLE with increase in warmth and nonpitting edema. extending from tibial tuberosity into digits. DERM: LLE=Ulceration noted to medial aspect of 1st met head measuring approximately 0.5 x 0.5 x 0.1 cm - noted to have a mixed granular/necrotic base and hyperkeratotic rim; serosanguinous drainage present; no periwound erythema; no purulence; no fluctuance; no undermining; no tunneling. Dry necrotic 5th digit with sloughing of skin proximally and mild hyperpigmented changes to the proximal skin; malodor present; no drainage; no purulence. Hyperkeratosis noted to hallucal distal tuft. RLE=WNL NEURO: Light touch and protective sensation moderately diminished b/l. ORTHO: No pain on palpation left medial 1st met head ulceration. Minimal pain upon ROM left 5th digit. Muscle strength 5/5 for all dorisflexors, plantarflexors, inverters, and everters b/l. - Neurological Exam Neurological Exam: Alert, Awake, Oriented x3 - Psychiatric Exam Psychiatric exam: Normal Affect, Normal Mood Assessment and Plan - Assessment and Plan (Free Text) Assessment: 62 year old male with left foot 1st metatarsal medial ulceration and 5th digit gangrene Plan: Patient seen and evaluated Discussed with attending, Dr. Jauregui Afebrile, WBC 8.7 Left foot XR: No definitive cortical changes however OM cannot be excluded LLE venous doppler: Negative for DVT Left foot WCx: MRSA Continue IV abx; ID consulted, f/u recs LLE MRI ordered - Suggestive of 5th digit OM Bilateral arterial duplex - Normal MYRON/PVR; possible left pedal occlusive disease Vascular consulted, f/u recs Plan for left 5th digit amputation upon full demarcation - patient is agreeable with the plan Will require medical optimization Continue local wound care -betadine, DSD L foot Podiatry will continue to follow
--- NOTE | 2017-12-07 14:36 | RAD ---
HISTORY: risk stratification for procedure COMPARISON: No prior. TECHNIQUE: Chest PA and lateral FINDINGS: LUNGS: No active pulmonary disease. PLEURA: No significant pleural effusion identified. No pneumothorax apparent. CARDIOVASCULAR: Normal. OSSEOUS STRUCTURES: No significant abnormalities. VISUALIZED UPPER ABDOMEN: Normal. OTHER FINDINGS: None. IMPRESSION: No active disease.
--- NOTE | 2017-12-08 04:16 | PN ---
DATE: 12/07/2017 SUBJECTIVE: The patient is in bed, in no acute distress, nontoxic, was seen earlier today in 578. PHYSICAL EXAMINATION: VITAL SIGNS: Temperature is 98, blood pressure is 160/80, respiratory rate of 18. HEENT: Unremarkable. NECK: Supple. LUNGS: Have decreased breath sounds. HEART: Normal S1, S2. ABDOMEN: Soft, nontender. LABORATORY EXAMINATION: Reveals the patient's white count is 8.7, hemoglobin of 11. Sed rate is 78. Chemistries are noted and C-reactive protein is greater than . Urinalysis is noted. Serology, HIV is negative. Microbiology reveals MRSA in the left foot. The blood cultures are no growth. The urine cultures are no growth. . Review of orders reveal the patient to be on ceftaroline. ASSESSMENT AND PLAN: This is a 62-year-old male who was seen earlier today with a left foot fifth toe osteomyelitis and skin and skin structure infection with methicillin-resistant Staphylococcus aureus in a patient with diabetes mellitus, peripheral neuropathy, hypertension, coronary artery disease, on Teflaro. We will follow with you. Pending Podiatry intervention. Dada Dorsey MD
--- NOTE | 2017-12-08 06:42 | CP.PCM.PN ---
<Shorty Oroima - Last Filed: 12/08/17 11:08> Subjective - Date & Time of Evaluation Date of Evaluation: 12/08/17 Time of Evaluation: 07:45 - Subjective Subjective: PGY2 Medicine note for Dr. Moreno Patient seen and examined at bedside. Nursing reports patient was bradycardic in the 50s overnight however asymptomatic. Patient is aware of podiatry's plan for resection. This AM he denied acute complaints of fever, chills, headache, dizziness, lightheadedness, chest pain, palpitations, SOB, cough, abd pain, nausea, vomiting, bowel/bladder complaints, pain in his legs b/l. He does have some swelling in his LLE and was advised to raise his leg on a pillow. Patient feels claustrophobic and wishes he could leave and come back; however I spoke to patient in detail regarding the importance of staying and receiving IV antibiotics and he understood, although he is eager to go home. Patient is eating well and has no complaints. Objective - Vital Signs/Intake and Output Vital Signs (last 24 hours): Temp Pulse Resp BP Pulse Ox 98.1 F 56 L 20 159/97 H 98 12/07/17 23:05 12/07/17 23:05 12/07/17 23:05 12/07/17 23:05 12/07/17 23:05 Intake and Output: 12/07/17 12/08/17 18:59 06:59 Intake Total 1020 Balance 1020 - Medications Medications: Current Medications Ascorbic Acid (Vitamin C 500 Mg Tab) 500 mg PO DAILY [facility] Last Admin: 12/07/17 10:51 Dose: 500 mg Famotidine (Pepcid) 20 mg PO 1000,2200 [facility] Last Admin: 12/07/17 22:22 Dose: 20 mg Heparin Sodium (Porcine) (Heparin) 5,000 units SC Q8 [facility] PRN Reason: Protocol Last Admin: 12/08/17 06:32 Dose: 5,000 units Ceftaroline Fosamil 600 mg/ (Sodium Chloride) 100 mls @ 100 mls/hr IVPB Q12 [facility] PRN Reason: Protocol Stop: 12/14/17 17:01 Last Admin: 12/07/17 22:22 Dose: 100 mls/hr Insulin Human Lispro (Humalog Low) 0 units SC ACHS [facility] PRN Reason: Protocol Last Admin: 12/07/17 22:21 Dose: Not Given Lisinopril (Zestril) 5 mg PO DAILY [facility] Last Admin: 12/07/17 10:50 Dose: 5 mg Mupirocin (Bactroban Ointment) 0 gm TOP BID [facility] Last Admin: 12/06/17 18:46 Dose: Not Given Thiamine HCl (Vitamin B1 Tab) 100 mg PO DAILY [facility] Last Admin: 12/07/17 10:50 Dose: 100 mg - Labs Labs: 12/07/17 07:20 12/07/17 07:20 PT 12.9 SECONDS (9.4-12.5) H 12/04/17 13:13 INR 1.12 (0.93-1.08) H 12/04/17 13:13 APTT 28.3 Seconds (25.1-36.5) 12/05/17 07:30 - Constitutional Appears: Non-toxic, No Acute Distress - Head Exam Head Exam: ATRAUMATIC, NORMAL INSPECTION, NORMOCEPHALIC - Eye Exam Eye Exam: EOMI, Normal appearance, PERRL. absent: Conjunctival injection, Scleral icterus - ENT Exam ENT Exam: Mucous Membranes Moist - Neck Exam Neck Exam: Full ROM, Normal Inspection - Respiratory Exam Respiratory Exam: Clear to Ausculation Bilateral, NORMAL BREATHING PATTERN. absent: Accessory Muscle Use, Rales, Rhonchi, Wheezes, Respiratory Distress - Cardiovascular Exam Cardiovascular Exam: REGULAR RHYTHM, +S1, +S2 - GI/Abdominal Exam GI & Abdominal Exam: Soft, Normal Bowel Sounds. absent: Firm, Guarding, Rigid, Tenderness - Rectal Exam Rectal Exam: Deferred - Extremities Exam Extremities Exam: Pedal Edema (LLE warmth and swollen). absent: Calf Tenderness , Tenderness Additional comments: L foot wrapped in dressing - Back Exam Back Exam: NORMAL INSPECTION. absent: rash noted - Neurological Exam Neurological Exam: Alert, Awake, CN II-XII Intact, Oriented x3 - Psychiatric Exam Psychiatric exam: Normal Affect, Normal Mood - Skin Skin Exam: Erythema (LLE), Warm Assessment and Plan - Assessment and Plan (Free Text) Assessment: 62yo male with no PMHx not on any home meds presents with 2 week history of left fifth metatarsal swelling and change in color. Patient admitted to med/ surg for suspected cellulitis vs. OM Plan: Cellulitis of Left foot/Left fifth toe dry gangrene Details: - Left foot MRI: marrow edema of 5th metatarsal- suggestive for osteomyelitis - Left extremity arterial studies: Normal MYRON/PVR; possible left pedal occlusive disease - Left foot xray: No acute fracture, mild diffuse circumferential soft tissue swelling nonspecific, no definitive cortical destructive changes however unable to r/o OM - LE dopplers: negative for DVT - Left foot wound culture: +MRSA - Urine and Blood culture: negative - ESR and CRP elevated - ID Consulted - Podiatry Consulted Plan: - Continue Teflaro as per ID q12 - Continue vitamin C and thiamine qdaily - As per podiatry: patient for OR tomorrow 12/09 at 11am for partial 5th ray resection - will f/u Echo and cardio reccs for risk stratification for procedure - Continue local wound care: betadine, DSD Anemia Details: - Normocytic anemia - Iron studies point towards ACD Plan: - Monitor DM2 Details: - HgbA1c: 10.2 - patient not on any home medications and has poor understanding of DM management Plan: - DM educator - RISS low dose - Accucheck ACHS - Lisinopril 5mg qd - Consider long acting insulin depending on coverage during the day - CORRECTION diet GI ppx: Pepcid DVT ppx: Heparin Q8 Diet: CORRECTION Discussed with Dr. Josh Oro PGY2 <Heena Moreno - Last Filed: 12/08/17 12:17> Objective - Vital Signs/Intake and Output Vital Signs (last 24 hours): Temp Pulse Resp BP Pulse Ox 98.5 F 50 L 20 161/84 H 96 12/08/17 06:00 12/08/17 10:35 12/08/17 06:00 12/08/17 10:35 12/08/17 06:00 Intake and Output: 12/08/17 12/08/17 06:59 18:59 Intake Total 1020 Balance 1020 - Medications Medications: Current Medications Ascorbic Acid (Vitamin C 500 Mg Tab) 500 mg PO DAILY [facility] Last Admin: 12/08/17 10:34 Dose: 500 mg Famotidine (Pepcid) 20 mg PO 1000,2200 [facility] Last Admin: 12/08/17 10:35 Dose: 20 mg Heparin Sodium (Porcine) (Heparin) 5,000 units SC Q8 [facility] PRN Reason: Protocol Last Admin: 12/08/17 06:32 Dose: 5,000 units Ceftaroline Fosamil 600 mg/ (Sodium Chloride) 100 mls @ 100 mls/hr IVPB Q12 [facility] PRN Reason: Protocol Stop: 12/14/17 17:01 Last Admin: 12/08/17 10:34 Dose: 100 mls/hr Insulin Human Lispro (Humalog Low) 0 units SC ACHS [facility] PRN Reason: Protocol Last Admin: 12/08/17 08:23 Dose: 1 units Lisinopril (Zestril) 5 mg PO DAILY [facility] Last Admin: 12/08/17 10:35 Dose: 5 mg Mupirocin (Bactroban Ointment) 0 gm TOP BID [facility] Last Admin: 12/06/17 18:46 Dose: Not Given Thiamine HCl (Vitamin B1 Tab) 100 mg PO DAILY [facility] Last Admin: 12/08/17 10:34 Dose: 100 mg - Labs Labs: 12/08/17 07:10 12/08/17 07:10 PT 12.9 SECONDS (9.4-12.5) H 12/04/17 13:13 INR 1.12 (0.93-1.08) H 12/04/17 13:13 APTT 28.3 Seconds (25.1-36.5) 12/05/17 07:30 Attending/Attestation - Attestation I have personally seen and examined this patient.: Yes I have fully participated in the care of the patient.: Yes I have reviewed all pertinent clinical information, including history, physical exam and plan: Yes Notes (Text): 12/08/17 12:15 62 year old male who was admitted with diabetic foot ulceration with infection/ dry gangrene of little toe and cellulitis on leg. Continue with iv antibiotics as per ID and wound care as per podiatry. WCx +ve for MRSA. Dopplers studies were reviewed and IR/vascular evaluation was appreciated. MRI was done suggestive of osteomyelitis. Will follow up with ID and podiatry recommendations. Plan is for possible OR 5th ray resection tomorrow as per podiatry. A1c is elevated at 10.2. Diabetic education referral is ordered. He is currently on insulin ss. We did discuss with the patient regarding possibly starting long acting insulin which is is hesitant about starting at this time. Heena Moreno MD Hospitalist.
[2017-12-08 07:32] LABS: BASO # 0.02 K/mm3 (0.0-2.0); BASO % 0.2 % (0.0-3.0); EOS # 0.2 (0.0-0.7); EOS % 1.9 % (1.5-5.0); GRAN # 6.28 (1.4-6.5); HEMOGLOBIN 11.6 g/dL (14.0-18.0); LYMPH # 2.1 (1.2-3.4); LYMPH % 22.3 % (22.0-35.0); MEAN CELL VOLUME 90.9 fl (80.0-105.0); MEAN CORPUSCULAR HEMOGLOBIN 32.1 pg (25.0-35.0); MEAN CORPUSCULAR HGB CONC 35.4 g/dl (31.0-37.0); MEAN PLATELET VOLUME 9.3 fl (7.0-11.0); MONO # 0.8 (0.1-0.6); MONO % 8.6 % (1.0-6.0); RBC 3.61 10^6/uL (3.5-6.1); RED CELL DISTRIBUTION WIDTH 12.2 % (11.5-14.5); WHITE BLOOD COUNT 9.4 10^3/ul (4.5-11.0)
[2017-12-08 08:03] LABS: ALB/GLOB RATIO 1.1 (1.1-1.8); ALBUMIN 3.7 g/dL (3.0-4.8); ALT/SGPT 28 U/L (7-56); AST/SGOT 29 U/L (17-59); BLOOD UREA NITROGEN 15 mg/dL (7-21); CALCIUM 8.9 mg/dL (8.4-10.5); GFR AFRICAN-AMERICAN > 60; GFR NON-AFRICAN AMERICAN > 60
[2017-12-08] MEDS: Insulin Lispro (humaLOG) LOW Coverage SC SCH ×5 (08:15→21:24)
[2017-12-08] MEDS: Ceftaroline 600 MG in Sodium Chloride 0.9% 100 ML IVPB SCH ×2 (10:34→22:08)
--- NOTE | 2017-12-08 11:16 | CP.PCM.PN ---
Subjective - Date & Time of Evaluation Date of Evaluation: 12/08/17 Time of Evaluation: 11:12 - Subjective Subjective: Podiatry Progress note: Dr. Jauregui 62 year old male patient was seen and evaluated at bedside for left foot wound and darkened 5th digit. Patient is AAOx3 and is in NAD. Denies of any pain to the foot today and states that he only has pain when someone touches it. Reports that he has been walking on his heel to and from the bathroom. Denies of having any recent F/N/V/C/SOB/CP/headache. Denies of any other pedal complains now. Objective - Vital Signs/Intake and Output Vital Signs (last 24 hours): Temp Pulse Resp BP Pulse Ox 98.5 F 50 L 20 161/84 H 96 12/08/17 06:00 12/08/17 10:35 12/08/17 06:00 12/08/17 10:35 12/08/17 06:00 Intake and Output: 12/08/17 12/08/17 06:59 18:59 Intake Total 1020 Balance 1020 - Medications Medications: Current Medications Ascorbic Acid (Vitamin C 500 Mg Tab) 500 mg PO DAILY [facility] Last Admin: 12/08/17 10:34 Dose: 500 mg Famotidine (Pepcid) 20 mg PO 1000,2200 [facility] Last Admin: 12/08/17 10:35 Dose: 20 mg Heparin Sodium (Porcine) (Heparin) 5,000 units SC Q8 [facility] PRN Reason: Protocol Last Admin: 12/08/17 06:32 Dose: 5,000 units Ceftaroline Fosamil 600 mg/ (Sodium Chloride) 100 mls @ 100 mls/hr IVPB Q12 [facility] PRN Reason: Protocol Stop: 12/14/17 17:01 Last Admin: 12/08/17 10:34 Dose: 100 mls/hr Insulin Human Lispro (Humalog Low) 0 units SC ACHS [facility] PRN Reason: Protocol Last Admin: 12/08/17 08:23 Dose: 1 units Lisinopril (Zestril) 5 mg PO DAILY [facility] Last Admin: 12/08/17 10:35 Dose: 5 mg Mupirocin (Bactroban Ointment) 0 gm TOP BID [facility] Last Admin: 12/06/17 18:46 Dose: Not Given Thiamine HCl (Vitamin B1 Tab) 100 mg PO DAILY [facility] Last Admin: 12/08/17 10:34 Dose: 100 mg - Labs Labs: 12/08/17 07:10 12/08/17 07:10 PT 12.9 SECONDS (9.4-12.5) H 12/04/17 13:13 INR 1.12 (0.93-1.08) H 12/04/17 13:13 APTT 28.3 Seconds (25.1-36.5) 12/05/17 07:30 - Constitutional Appears: Well, Non-toxic, No Acute Distress - Extremities Exam Additional comments: VASC: Right DP and PT pulses palpable 2/4. Left DP and PT pulses nonpalpable secondary to edema. CFT <3 seconds to all digits right foot, digits 1-4 left foot and unable to assess 5th digit. Temperature gradient cool to cool RLE, warm to warm LLE and nonpitting edema and erythema extending from distal leg into the lateral forefoot DERM: LLE=Ulceration noted to medial aspect of 1st met head measuring approximately 0.5 x 0.5 x 0.1 cm - noted to have a mixed granular/necrotic base and hyperkeratotic rim; serosanguinous drainage present; no periwound erythema; no purulence; no fluctuance; no undermining; no tunneling. Dry necrotic 5th digit with sloughing of skin proximally and mild hyperpigmented changes to the proximal skin; no malodor present; no drainage; no purulence. Hyperkeratosis noted to hallucal distal tuft. RLE=WNL NEURO: Light touch and protective sensation moderately diminished b/l. ORTHO: No pain on palpation left medial 1st met head ulceration. Minimal pain upon ROM left 5th digit. Muscle strength 5/5 for all dorisflexors, plantarflexors, inverters, and everters b/l. - Neurological Exam Neurological Exam: Alert, Awake, Oriented x3 - Psychiatric Exam Psychiatric exam: Normal Affect, Normal Mood Assessment and Plan - Assessment and Plan (Free Text) Assessment: 62 year old male with left foot 1st metatarsal medial ulceration and 5th digit gangrene Plan: Patient seen and evaluated Discussed with attending, Dr. Jauregui Afebrile, WBC 9.4 Dressing changed using betadine, DSD L foot Left foot XR: No definitive cortical changes however OM cannot be excluded LLE venous doppler: Negative for DVT Left foot WCx: MRSA Continue IV abx; ID consulted, f/u recs LLE MRI ordered - Suggestive of 5th digit and distal 5th metatarsal head OM Bilateral arterial duplex - Normal MYRON/PVR; possible left pedal occlusive disease Vascular consulted - recs appreciated - Agrees with digital amputation at this time Medical optimization appreciated Plan for left partial 5th ray resection tomorrow (12/09) @ 11:00 am - patient is agreeable with the plan -NPO starting midnight -Hold anticoagulants Podiatry will monitor patient closely
--- NOTE | 2017-12-08 19:58 | CARD ---
APPROVED REPORT EXAM: Two-dimensional and M-mode echocardiogram with Doppler and color Doppler. INDICATION 2D DIMENSIONS IVSd1.1 (0.7-1.1cm)LVDd5.3 (3.9-5.9cm) PWd1.1 (0.7-1.1cm)LVDs3.5 (2.5-4.0cm) FS (%) 33.9 %LVEF (%)62.4 (>50%) M-Mode DIMENSIONS Aortic Root3.60 (2.2-3.7cm)Aortic Cusp Exc.1.60 (1.5-2.0cm) Aortic Valve AoV Peak Ujrrufdw756.0cm/Jamil Peak GR.9mmHg Mitral Valve MV E Jgqpuogs34.0cm/sMV A Efkzdefx78.6cm/sE/A ratio2.3 TDI Lateral E' Peak V10.70cm/sMedial E' Peak V7.10cm/sE/Lateral E'7.1 E/Medial E'10.7 Tricuspid Valve TR Peak Meizorln883bv/sRAP [id number] Peak Gr.29mmHg [id number] LEFT VENTRICLE The left ventricle is normal size. There is normal left ventricular wall thickness. The left ventricular function is normal.EF-60-65% There is normal LV segmental wall motion. can not be assessed b/c of arrythmia No left ventricle thrombus noted on this study. There is no ventricular septal defect visualized. There is no left ventricular aneurysm. There is no mass noted in the left ventricle. RIGHT VENTRICLE The right ventricle is normal size. There is normal right ventricular wall thickness. The right ventricular systolic function is normal. ATRIA The left atrium size is normal. The right atrium size is normal. The interatrial septum is intact with no evidence for an atrial septal defect. AORTIC VALVE The aortic valve is thickened but opens well. There is trace aortic regurgitation. There is no aortic valvular stenosis. There is no aortic valvular vegetation. MITRAL VALVE The mitral valve is thickened but opens well. Mitral regurgitation is trace. There is no mitral valve stenosis. There is no evidence of mitral valve prolapse. TRICUSPID VALVE The tricuspid valve leaflets are thickened , but open well. There is mild tricuspid regurgitation.RVSP-39 mmof hg. There is no tricuspid valve stenosis. There is no tricuspid valve prolapse or vegetation. PULMONIC VALVE The pulmonary valve is normal in structure. There is trace pulmonic valvular regurgitation. There is no pulmonic valvular stenosis. GREAT VESSELS The aortic root is normal in size. The ascending aorta is normal in size. The pulmonary artery is normal. The IVC is normal in size and collapses >50% with inspiration. PERICARDIAL EFFUSION There is no pleural effusion. There is no pericardial effusion. <Conclusion> The left ventricle is normal size. There is normal left ventricular wall thickness. The left ventricular function is normal.EF-60-65% There is trace aortic regurgitation. Mitral regurgitation is trace. There is mild tricuspid regurgitation.RVSP-39 mmof hg. The IVC is normal in size and collapses >50% with inspiration. There is no pericardial effusion. No vegetation or thrombus noted.
[2017-12-08] MEDS: Dextrose 5%/0.9% NS 1,000 ML IV SCH (22:07)
--- NOTE | 2017-12-08 22:13 | CP.PCM.PN ---
Subjective - Date & Time of Evaluation Date of Evaluation: 12/08/17 Time of Evaluation: 14:00 - Subjective Subjective: No fevers, not in distress. Objective - Vital Signs/Intake and Output Vital Signs (last 24 hours): Temp Pulse Resp BP Pulse Ox 98.1 F 56 L 20 154/107 H 97 12/08/17 14:00 12/08/17 14:51 12/08/17 14:00 12/08/17 14:51 12/08/17 14:00 Intake and Output: 12/08/17 12/09/17 18:59 06:59 Output Total 480 Balance -480 - Medications Medications: Current Medications Ascorbic Acid (Vitamin C 500 Mg Tab) 500 mg PO DAILY [facility] Last Admin: 12/08/17 10:34 Dose: 500 mg Docusate Sodium (Colace) 100 mg PO BID [facility] Last Admin: 12/08/17 18:26 Dose: 100 mg Famotidine (Pepcid) 20 mg PO 1000,2200 [facility] Last Admin: 12/08/17 22:08 Dose: 20 mg Heparin Sodium (Porcine) (Heparin) 5,000 units SC Q8 [facility] PRN Reason: Protocol Last Admin: 12/08/17 21:19 Dose: Not Given Ceftaroline Fosamil 600 mg/ (Sodium Chloride) 100 mls @ 100 mls/hr IVPB Q12 [facility] PRN Reason: Protocol Stop: 12/14/17 17:01 Last Admin: 12/08/17 22:08 Dose: 100 mls/hr Dextrose/Sodium Chloride (Dextrose 5%/0.9% Ns 1000 Ml) 1,000 mls @ 100 mls/hr IV .Q10H [facility] Last Admin: 12/08/17 22:07 Dose: 100 mls/hr Insulin Human Lispro (Humalog Low) 0 units SC ACHS [facility] PRN Reason: Protocol Last Admin: 12/08/17 21:24 Dose: Not Given Lisinopril (Zestril) 10 mg PO DAILY [facility] Mupirocin (Bactroban Ointment) 0 gm TOP BID [facility] Last Admin: 12/08/17 20:19 Dose: Not Given Thiamine HCl (Vitamin B1 Tab) 100 mg PO DAILY [facility] Last Admin: 12/08/17 10:34 Dose: 100 mg - Labs Labs: 12/08/17 07:10 12/08/17 07:10 PT 12.9 SECONDS (9.4-12.5) H 12/04/17 13:13 INR 1.12 (0.93-1.08) H 12/04/17 13:13 APTT 28.3 Seconds (25.1-36.5) 12/05/17 07:30 - Constitutional Appears: Chronically Ill - Head Exam Head Exam: NORMAL INSPECTION - Respiratory Exam Respiratory Exam: Decreased Breath Sounds - Cardiovascular Exam Cardiovascular Exam: +S1, +S2 - GI/Abdominal Exam GI & Abdominal Exam: Soft. absent: Tenderness Assessment and Plan - Assessment and Plan (Free Text) Plan: Assessment left foot 5th toe osteomyelitis with skin and skin structure infection DM peripheral neuropathy CAD HTN Plan continue Teflaro - as per Podiatry for surgery tomorrow will continue to monitor clinically
--- NOTE | 2017-12-08 22:14 | CON ---
DATE: 12/08/2017 LOCATION: Room 578, bed 2. REASON FOR CONSULTATION: Diabetes mellitus, dry gangrene of the left foot toe, cardiac risk stratification for surgery for possible amputation. HISTORY OF PRESENT ILLNESS: The patient is a 62-year-old male who states that he knows that he has diabetes since last 10 years but never took any medication, and he developed left foot fifth toe skin opening, pus, and discoloration of the left toe and he was brought to the hospital where he was found to have gangrene of left fifth toe along with infection. Gangrene seems to be the dry gangrene. The patient's MYRON are normal. The patient denies any chest pain, shortness of breath, or palpitation. PAST MEDICAL HISTORY: As mentioned before, the patient is diabetic since last 10 years, but never took any medications. He was treated for fractured wrist and ankle in childhood and clavicle fracture in childhood. PERSONAL HISTORY: Used to smoke half pack until 5 years ago. Drinks 2 beers 3 times a week. FAMILY HISTORY: Positive for diabetes mellitus. HOME MEDICATIONS: The patient denied taking any medications. REVIEW OF SYSTEMS: All the systems reviewed, positives mentioned in the history, others were negative. PHYSICAL EXAMINATION: VITAL SIGNS: Blood pressure 161/84, respirations 20, pulse 50, temperature 98.5. HEENT: Head is normocephalic. Eyes: Pupils normal. Conjunctivae normal. NECK: JVP low. Carotids equal. THORAX: AP diameter normal. LUNGS: Clear. CARDIOVASCULAR: S1, S2. ABDOMEN: Soft, nontender. No organomegaly. EXTREMITIES: No clubbing. No cyanosis. The patient's left foot fifth toe shows dry gangrene and also infection in the area plus some swelling of the foot with possible cellulitis. LABORATORY DATA: WBC 9.4, hemoglobin 11.6, hematocrit 32.8, platelets 237. Sodium 140, potassium 4.5, BUN 15, creatinine 1.2, random sugar 191. AST, ALT normal. Total protein, albumin normal. Chest x-ray, no active disease. EKG shows sinus bradycardia around 56 per minute. The patient states that he has longstanding history of slow heart beat. DIAGNOSES: Gangrene of the left foot fifth toe along with cellulitis, diabetes mellitus, hypertension, bradycardia from history many years ago. PLAN: Clinically, the patient's cardiac status is stable and the patient had echo done yesterday, report is pending. Clinically, the patient does not have any anginal symptoms. From cardiac point of view, the patient can go for amputation of the left foot fifth toe as a moderate risk because of diabetes mellitus and hypertension. The patient is on lisinopril 5 mg daily. We will increase it to 10 mg daily because blood pressure is still elevated. We will check TSH. The patient has many years' history of bradycardia. We will also check lipid profile. The patient is on heparin 5000 units subcutaneously every 8 hours. We will follow with you. Arslan Hearn MD
[2017-12-09] MEDS: Dextrose 5%/0.9% NS 1,000 ML IV SCH (05:33)
--- NOTE | 2017-12-09 07:01 | CP.PCM.PN ---
<Shorty Oroima - Last Filed: 12/09/17 11:56> Subjective - Date & Time of Evaluation Date of Evaluation: 12/09/17 Time of Evaluation: 07:00 - Subjective Subjective: PGY2 Medicine note for Dr. Moreno Patient seen and examined at bedside. Nursing reported no acute events overnight. Patient denied acute complaints of fever, chills, headache, dizziness , lightheadedness, chest pain, palpitations, SOB, cough, abd pain, nausea, vomiting, bowel/bladder complaints, pain in his legs b/l. Patient was NPO after midnight for OR this afternoon. Objective - Vital Signs/Intake and Output Vital Signs (last 24 hours): Temp Pulse Resp BP Pulse Ox 97.9 F 50 L 20 133/68 97 12/09/17 05:42 12/09/17 05:42 12/09/17 05:42 12/09/17 05:42 12/09/17 05:42 Intake and Output: 12/09/17 12/09/17 06:59 18:59 Intake Total 240 Output Total 320 Balance -80 - Medications Medications: Current Medications Ascorbic Acid (Vitamin C 500 Mg Tab) 500 mg PO DAILY [facility] Last Admin: 12/08/17 10:34 Dose: 500 mg Docusate Sodium (Colace) 100 mg PO BID [facility] Last Admin: 12/08/17 18:26 Dose: 100 mg Famotidine (Pepcid) 20 mg PO 1000,2200 [facility] Last Admin: 12/08/17 22:08 Dose: 20 mg Heparin Sodium (Porcine) (Heparin) 5,000 units SC Q8 [facility] PRN Reason: Protocol Last Admin: 12/08/17 21:19 Dose: Not Given Ceftaroline Fosamil 600 mg/ (Sodium Chloride) 100 mls @ 100 mls/hr IVPB Q12 [facility] PRN Reason: Protocol Stop: 12/14/17 17:01 Last Admin: 12/08/17 22:08 Dose: 100 mls/hr Dextrose/Sodium Chloride (Dextrose 5%/0.9% Ns 1000 Ml) 1,000 mls @ 100 mls/hr IV .Q10H [facility] Last Admin: 12/09/17 05:33 Dose: 100 mls/hr Insulin Human Lispro (Humalog Low) 0 units SC ACHS [facility] PRN Reason: Protocol Last Admin: 12/08/17 21:24 Dose: Not Given Lisinopril (Zestril) 10 mg PO DAILY [facility] Mupirocin (Bactroban Ointment) 0 gm TOP BID [facility] Last Admin: 12/08/17 20:19 Dose: Not Given Thiamine HCl (Vitamin B1 Tab) 100 mg PO DAILY [facility] Last Admin: 12/08/17 10:34 Dose: 100 mg - Labs Labs: 12/08/17 07:10 12/08/17 07:10 PT 12.9 SECONDS (9.4-12.5) H 12/04/17 13:13 INR 1.12 (0.93-1.08) H 12/04/17 13:13 APTT 28.3 Seconds (25.1-36.5) 12/05/17 07:30 - Constitutional Appears: Non-toxic, No Acute Distress - Head Exam Head Exam: ATRAUMATIC, NORMAL INSPECTION, NORMOCEPHALIC - Eye Exam Eye Exam: EOMI, Normal appearance. absent: Conjunctival injection, Scleral icterus - ENT Exam ENT Exam: Mucous Membranes Moist - Neck Exam Neck Exam: Full ROM - Respiratory Exam Respiratory Exam: Clear to Ausculation Bilateral, NORMAL BREATHING PATTERN. absent: Accessory Muscle Use, Rales, Rhonchi, Wheezes, Respiratory Distress - Cardiovascular Exam Cardiovascular Exam: REGULAR RHYTHM, RRR, +S1, +S2 - GI/Abdominal Exam GI & Abdominal Exam: Soft, Normal Bowel Sounds. absent: Firm, Guarding, Rigid, Tenderness - Extremities Exam Extremities Exam: Pedal Edema (LLE) Additional comments: left foot wrapped in dressing - Back Exam Back Exam: NORMAL INSPECTION. absent: rash noted - Neurological Exam Neurological Exam: Alert, Awake, CN II-XII Intact, Oriented x3 - Psychiatric Exam Psychiatric exam: Normal Affect, Normal Mood - Skin Skin Exam: Erythema (LLE) Assessment and Plan - Assessment and Plan (Free Text) Assessment: 62yo male with no PMHx not on any home meds presents with 2 week history of left fifth metatarsal swelling and change in color. Patient admitted to med/ surg for L 5th metatarsal OM Plan: Cellulitis of Left foot/Left fifth toe dry gangrene - Left foot MRI: marrow edema of 5th metatarsal- suggestive for osteomyelitis - Left extremity arterial studies: Normal MYRON/PVR; possible left pedal occlusive disease - Left foot xray: No acute fracture, mild diffuse circumferential soft tissue swelling nonspecific, no definitive cortical destructive changes however unable to r/o OM - LE dopplers: negative for DVT - Left foot wound culture: +MRSA - Urine and Blood culture: negative - ESR and CRP elevated - ID Consulted - Podiatry Consulted - Continue Teflaro as per ID q12 - Continue vitamin C and thiamine qdaily - Patient for OR this afternoon 12/09 - Continue local wound care: betadine, DSD Anemia - Normocytic anemia - Iron studies point towards ACD - Monitor DM2 - HgbA1c: 10.2 - patient not on any home medications and has poor understanding of DM management - DM educator - RISS low dose - Accucheck ACHS - Lisinopril 5mg qd - Consider long acting insulin depending on coverage during the day - CARE HOME diet HTN - Echo was unremarkable - Lisinopril 10mg po qd Constipation - Colace 100mg po bid GI ppx: Pepcid DVT ppx: Heparin Q8-on hold for OR today Diet: NPO after midnight for OR- will restart CARE HOME after amputation Discussed with Dr. Josh Oro PGY2 <Heena Moreno - Last Filed: 12/09/17 14:38> Objective - Vital Signs/Intake and Output Vital Signs (last 24 hours): Temp Pulse Resp BP Pulse Ox 98.1 F 60 18 121/75 97 12/09/17 13:15 12/09/17 13:15 12/09/17 13:15 12/09/17 13:15 12/09/17 13:15 Intake and Output: 12/09/17 12/09/17 06:59 18:59 Intake Total 240 1000 Output Total 320 Balance -80 1000 - Medications Medications: Current Medications Acetaminophen (Tylenol 325mg Tab) 650 mg PO Q6H PRN PRN Reason: Pain, Mild (1-3) Ascorbic Acid (Vitamin C 500 Mg Tab) 500 mg PO DAILY [facility] Last Admin: 12/09/17 09:39 Dose: 500 mg Docusate Sodium (Colace) 100 mg PO BID [facility] Last Admin: 12/09/17 09:39 Dose: 100 mg Famotidine (Pepcid) 20 mg PO 1000,2200 [facility] Last Admin: 12/09/17 09:40 Dose: 20 mg Fentanyl (Fentanyl) 25 mcg IV Q5M PRN PRN Reason: Pain, moderate (4-7) Heparin Sodium (Porcine) (Heparin) 5,000 units SC Q8 [facility] PRN Reason: Protocol Last Admin: 12/08/17 21:19 Dose: Not Given Ceftaroline Fosamil 600 mg/ (Sodium Chloride) 100 mls @ 100 mls/hr IVPB Q12 [facility] PRN Reason: Protocol Stop: 12/14/17 17:01 Last Admin: 12/09/17 09:40 Dose: 100 mls/hr Sodium Chloride (Sodium Chloride 0.9%) 1,000 mls @ 100 mls/hr IV .Q10H [facility] Last Admin: 12/09/17 08:09 Dose: 100 mls/hr Insulin Human Lispro (Humalog Low) 0 units SC ACHS [facility] PRN Reason: Protocol Last Admin: 12/09/17 08:09 Dose: 2 units Lisinopril (Zestril) 10 mg PO DAILY [facility] Last Admin: 12/09/17 09:40 Dose: 10 mg Mupirocin (Bactroban Ointment) 0 gm TOP BID [facility] Last Admin: 12/09/17 09:41 Dose: Not Given Oxycodone/Acetaminophen (Percocet 5/325 Mg Tab) 1 tab PO Q4H PRN PRN Reason: Pain, moderate (4-7) Stop: 12/12/17 13:11 Oxycodone/Acetaminophen (Percocet 5/325 Mg Tab) 2 tab PO Q4H PRN PRN Reason: Pain, severe (8-10) Stop: 12/12/17 13:11 Thiamine HCl (Vitamin B1 Tab) 100 mg PO DAILY [facility] Last Admin: 12/09/17 09:39 Dose: 100 mg - Labs Labs: 12/09/17 07:00 12/09/17 07:00 PT 13.0 SECONDS (9.4-12.5) H 12/09/17 08:20 INR 1.13 (0.93-1.08) H 12/09/17 08:20 APTT 29.6 Seconds (25.1-36.5) 12/09/17 08:20 Attending/Attestation - Attestation I have personally seen and examined this patient.: Yes I have fully participated in the care of the patient.: Yes I have reviewed all pertinent clinical information, including history, physical exam and plan: Yes Notes (Text): 12/09/17 14:37 62 year old male who was admitted with diabetic foot ulceration with infection/ dry gangrene of little toe and cellulitis on leg. MRI was done suggestive of osteomyelitis. WCx +ve for MRSA. Dopplers studies were reviewed and IR/vascular evaluation was appreciated. Continue with iv antibiotics as per ID and wound care as per podiatry. Patient is for OR 5th ray resection today as per podiatry. A1c is elevated at 10.2. He is currently on insulin ss. We did discuss with the patient regarding possibly starting long acting insulin which is still hesitant about starting at this time. Heena Moreno MD Hospitalist.
[2017-12-09 07:38] LABS: BASO # 0.03 K/mm3 (0.0-2.0); BASO % 0.3 % (0.0-3.0); EOS # 0.1 (0.0-0.7); EOS % 1.4 % (1.5-5.0); GRAN # 6.26 (1.4-6.5); GRAN % 68.3 % (50.0-68.0); HEMOGLOBIN 11.1 g/dL (14.0-18.0); MEAN CELL VOLUME 91.3 fl (80.0-105.0); MEAN CORPUSCULAR HEMOGLOBIN 32.1 pg (25.0-35.0); MEAN CORPUSCULAR HGB CONC 35.1 g/dl (31.0-37.0); MEAN PLATELET VOLUME 9.4 fl (7.0-11.0); MONO # 0.7 (0.1-0.6); RBC 3.46 10^6/uL (3.5-6.1); RED CELL DISTRIBUTION WIDTH 12.4 % (11.5-14.5); WHITE BLOOD COUNT 9.2 10^3/ul (4.5-11.0)
[2017-12-09] MEDS ORDERED: Sodium Chloride 0.9% 1,000 ML IV SCH (08:00)
[2017-12-09] MEDS: Insulin Lispro (humaLOG) LOW Coverage SC SCH ×3 (08:09→17:29)
[2017-12-09 08:15] LABS: ALB/GLOB RATIO 1.1 (1.1-1.8); ALBUMIN 3.5 g/dL (3.0-4.8); ALT/SGPT 34 U/L (7-56); AST/SGOT 22 U/L (17-59); BLOOD UREA NITROGEN 15 mg/dL (7-21); CALCIUM 8.7 mg/dL (8.4-10.5); GFR AFRICAN-AMERICAN > 60; GFR NON-AFRICAN AMERICAN > 60
[2017-12-09 08:56] LABS: INR 1.13 (0.93-1.08); PARTIAL THROMBOPLASTIN TIME 29.6 Seconds (25.1-36.5)
[2017-12-09] MEDS: Ceftaroline 600 MG in Sodium Chloride 0.9% 100 ML IVPB SCH ×2 (09:40→23:44)
[2017-12-09] MEDS ORDERED: Propofol 10 mg/ml Inj (20 ML) ONE (11:15)
[2017-12-09] MEDS ORDERED: Midazolam 2 MG/2 ML VIAL ONE (11:15)
[2017-12-09] MEDS ORDERED: Bupivacaine 0.5% Inj(30mL) ONE (11:19)
[2017-12-09] MEDS ORDERED: Lidocaine 1% Inj (20ml) ONE (11:19)
--- NOTE | 2017-12-09 12:48 | PN ---
DATE: 12/09/2017 LOCATION: The patient is in room 578, bed 2. REASON FOR CONSULTATION: Diabetes mellitus, dry gangrene of the left foot small toe, cardiac risk stratification for surgery for possible amputation of the toe. SUBJECTIVE: The patient is lying flat in bed without any cardiac symptoms like chest pain, shortness of breath, palpitation. He still feels discomfort on the foot on the toe. The patient denies any palpitation. PHYSICAL EXAMINATION: VITAL SIGNS: Blood pressure 144/74, respirations 18, pulse around 50, temperature 97.7. HEENT: Head is normocephalic. Eyes: Pupils normal. Conjunctivae normal. NECK: JVP low. Carotids equal. THORAX: AP diameter normal. LUNGS: Clear. CARDIOVASCULAR: S1 and S2. ABDOMEN: Soft. No tenderness. No organomegaly. Bowel sound normal. EXTREMITIES: The patient has a gangrene of the fifth toe of the left foot with some swelling of the foot with some cellulitis. LABORATORY DATA: WBC 9.2, hemoglobin 11.1, hematocrit 31.6, platelet 240. Sodium 138, potassium 4.5, BUN 15, creatinine 1.2, random sugar 174, calcium 8.7, phosphorus 4.1, magnesium 2.1. AST, ALT normal. Total protein, albumin normal. The patient had echocardiogram on 12/07/2017, which showed normal-size LV, normal left ventricular systolic function, ejection fraction 60-65%, trace aortic regurg, trace mitral regurg, mild tricuspid regurg, RVSP 39 mmHg, which is not significant. DIAGNOSES: Gangrene of the left foot fifth toe along with cellulitis, diabetes mellitus, hypertension, history of bradycardia for many years. The patient's ankle-brachial index/pulse volume recording have been relatively normal, so probably the patient has small vessel disease. PLAN: The patient's echo showed normal LV ejection fraction. The patient is asymptomatic from cardiac point of view. The patient can go as moderate risk for amputation of the toe or any other procedure needed. The patient was on lisinopril 5 mg daily, I will increase it to 10 mg daily to control the blood pressure. The patient will have a stress test as outpatient later on. The patient is getting now heparin 5000 units subcu every 8 hourly, insulin coverage, famotidine 20 mg b.i.d., IV fluid. The patient is getting ceftaroline 600 mg IV every 12 hours, lisinopril 10 mg daily. We will continue present therapy. We will follow. Arslan Hearn MD
--- NOTE | 2017-12-09 13:07 | PCM.SURG1 ---
Surgeon's Initial Post Op Note - Surgeon's Notes Surgeon: Dr. Jian Jauregui DPM Tour Leader: Dr. Nola Erickson DPShannan PGY-1 Type of Anesthesia: IV Sedation, Local Anesthesia Administered By: Dr. Kingsley ARCHER Pre-Operative Diagnosis: Left foot 5th digit gangrene with OM Operative Findings: See dictation. M: 3-0 vicryl; 3-0 prolene. I: Pre-op: 8 cc of 1:1 1% lidocaine plain:0.5% Marcaine plain Post-Operative Diagnosis: Left foot 5th digit gangrene with OM Operation Performed: Left foot partial 5th ray resection Specimen/Specimens Removed: 5th digit. Proximal margin - 5th metatarsal head. Wound culture Estimated Blood Loss: EBL {In ML}: 10 Blood Products Given: N/A Drains Used: No Drains Post-Op Condition: Good Date of Surgery/Procedure: 12/09/17 Time of Surgery/Procedure: 13:07
[2017-12-09] MEDS ORDERED: Oxycodone/Acetaminophen 5/325 mg Tab PO PRN ×2 (13:10)
--- NOTE | 2017-12-09 14:13 | RAD ---
PROCEDURE: Left Foot Radiographs. HISTORY: s/p left foot surgery COMPARISON: None. FINDINGS: BONES: There has been amputation at the level of the distal 5th metatarsal. The foot is otherwise unremarkable JOINTS: Normal. SOFT TISSUES: Normal. OTHER FINDINGS: None. IMPRESSION: There has been amputation at the level of the distal 5th metatarsal. The foot is otherwise unremarkable
[2017-12-10] MEDS: Insulin Lispro (humaLOG) LOW Coverage SC SCH ×5 (00:32→22:16)
--- NOTE | 2017-12-10 00:57 | PN ---
DATE: 12/09/2017 SUBJECTIVE: The patient is in bed, in no acute distress. The patient was seen earlier this morning in 578, bed 2. PHYSICAL EXAMINATION: VITAL SIGNS: Temperature is 97, blood pressure is 130/70, respiratory rate 20, heart rate of 60. HEENT: Unremarkable. NECK: Supple. LUNGS: Have decreased breath sounds. HEART: Normal S1, S2. ABDOMEN: Soft, nontender. LABORATORY EXAMINATION: Reveals a white count of 9.7, hemoglobin of 11, platelets of 240. BUN of 15, creatinine of 1.2 and procalcitonin is less than 0.05. Urinalysis is noted. HIV is negative. Microbiology reveals MRSA from the left foot culture. The blood cultures are negative. Urine cultures are no growth. Review of orders reveal the patient to be on ceftaroline. The patient is scheduled for operation today, the partial resection of the ray, left foot. ASSESSMENT AND PLAN: This is a 62-year-old male who was seen earlier today with a left foot fifth toe osteomyelitis, skin and soft tissue infection with methicillin-resistant Staphylococcus aureus in a patient with diabetic and peripheral neuropathy, coronary artery disease, hypertension, on ceftaroline, patient OR for amputation today and we will check the OR cultures and pathology report and will make further recommendations. Dada Dorsey MD
--- NOTE | 2017-12-10 04:04 | OP ---
PROCEDURE DATE: 12/09/2017 SURGEON: Jian Jauregui DPM. ADMINISTRATIVE PERSONAL ASSISTANT: Nola Erickson DPM, PGY-1. ANESTHESIOLOGIST: Dr. Wynn. TYPE OF ANESTHESIA: IV sedation with local. PREOPERATIVE DIAGNOSIS: Left foot fifth digit gangrene with osteomyelitis. POSTOPERATIVE DIAGNOSIS: Left foot fifth digit gangrene with osteomyelitis. NAME OF PROCEDURE: Left foot amputation 5th digit at MPJ and deep bone biopsy 5th metatarsal. INDICATION: The patient is a 62-year-old male with the above diagnoses. The patient has exhausted all conservative treatment at this time and now requires surgical intervention. The patient signed the consent after careful explanation of risks, benefits, complications, and alternatives for surgical procedure. No guarantees were given or implied. N.p.o. status was confirmed prior to taking the patient to the OR. PREPARATION: The patient was brought into the operating room and placed onto the operating room table in the supine position. Time-out was performed for identification of the correct patient and the procedure. After the induction of IV sedation, the patient received a total of 8 mL of 1:1 mixture of 1% lidocaine plain to 0.5% Marcaine plain in a local block-type fashion to the left lateral forefoot. The left foot was then prepped and draped in a normal sterile manner and the procedure began. No tourniquet was utilized during this procedure. DESCRIPTION OF PROCEDURE: The attention was drawn to the distal aspect of the left lateral foot at the level of the fifth MTPJ where the gangrenous fifth digit was noted. A fish-mouth incision was planned out using a marking pen. Using a #15 blade, the incision was made down to the level of the bone on the planned site. Phalangeal clamp was utilized to stabilize the fifth digit. The fifth digit was disarticulated at the level of the fifth MTPJ. At this time, a sagittal saw was utilized to resect the head of the fifth metatarsal at the level of the neck. Fifth digit as well as the proximal margin of the bone was passed off the operative field and was sent to Pathology. Deep wound cultures were taken at this time. All of the nonviable soft tissue was extensionally removed from the surgical site. The surgical site was then flushed with copious amount of sterile saline. Deep tissue was then re-approximated using 3-0 Vicryl and skin layer was re-approximated using 3-0 Prolene. surgical site was left open due to poor soft tissue coverage. The surgical site was then dressed with Betadine-soaked Adaptic, 4 x 4 like Kerlix. POSTOPERATIVE CONDITION: The patient tolerated the anesthesia and the procedure well and was escorted to the recovery room with neurovascular status intact to the left foot. RECOMMENDATION: The patient is to remain partial weightbearing to the heel in a surgical shoe. Heat pack was ordered and asked to be applied to the left ankle and the dorsum of the foot to increase the blood flow. The patient will return to the Floor where he will be followed up by Dr. Jauregui. Nola Erickson DPM Jian Jauregui DPM. [facility]
[2017-12-10] MEDS: Ceftaroline 600 MG in Sodium Chloride 0.9% 100 ML IVPB SCH ×2 (09:51→21:36)
--- NOTE | 2017-12-10 11:52 | CP.PCM.PN ---
<Agustina Webster - Last Filed: 12/10/17 13:26> Subjective - Date & Time of Evaluation Date of Evaluation: 12/10/17 Time of Evaluation: 11:51 - Subjective Subjective: Internal Medicine Progress Note: Patient seen and examined at bedside. Per nursing, no acute events overnight. Patient is doing well, denies having any pain. Offering no complaints at this time. Denies headaches, dizziness, cp, palpitations, sob, abdominal pain, urinary symptoms, changes in bowel habits. Objective - Vital Signs/Intake and Output Vital Signs (last 24 hours): Temp Pulse Resp BP Pulse Ox 98.6 F 60 20 146/80 96 12/10/17 08:39 12/10/17 10:07 12/10/17 08:39 12/10/17 10:07 12/10/17 08:39 Intake and Output: 12/10/17 12/10/17 06:59 18:59 Intake Total 420 Output Total 700 Balance -280 - Medications Medications: Current Medications Acetaminophen (Tylenol 325mg Tab) 650 mg PO Q6H PRN PRN Reason: Pain, Mild (1-3) Ascorbic Acid (Vitamin C 500 Mg Tab) 500 mg PO DAILY [facility] Last Admin: 12/10/17 09:50 Dose: 500 mg Docusate Sodium (Colace) 100 mg PO BID [facility] Last Admin: 12/09/17 17:30 Dose: 100 mg Famotidine (Pepcid) 20 mg PO 1000,2200 [facility] Last Admin: 12/10/17 09:50 Dose: 20 mg Heparin Sodium (Porcine) (Heparin) 5,000 units SC Q8 [facility] PRN Reason: Protocol Last Admin: 12/08/17 21:19 Dose: Not Given Ceftaroline Fosamil 600 mg/ (Sodium Chloride) 100 mls @ 100 mls/hr IVPB Q12 [facility] PRN Reason: Protocol Stop: 12/14/17 17:01 Last Admin: 12/10/17 09:51 Dose: 100 mls/hr Sodium Chloride (Sodium Chloride 0.9%) 1,000 mls @ 100 mls/hr IV .Q10H [facility] Last Admin: 12/09/17 08:09 Dose: 100 mls/hr Insulin Human Lispro (Humalog Low) 0 units SC ACHS [facility] PRN Reason: Protocol Last Admin: 12/10/17 08:40 Dose: 1 units Lisinopril (Zestril) 10 mg PO DAILY [facility] Last Admin: 12/10/17 10:07 Dose: 10 mg Mupirocin (Bactroban Ointment) 0 gm TOP BID [facility] Last Admin: 12/09/17 09:41 Dose: Not Given Oxycodone/Acetaminophen (Percocet 5/325 Mg Tab) 1 tab PO Q4H PRN PRN Reason: Pain, moderate (4-7) Stop: 12/12/17 13:11 Oxycodone/Acetaminophen (Percocet 5/325 Mg Tab) 2 tab PO Q4H PRN PRN Reason: Pain, severe (8-10) Stop: 12/12/17 13:11 Thiamine HCl (Vitamin B1 Tab) 100 mg PO DAILY [facility] Last Admin: 12/10/17 10:06 Dose: 100 mg - Labs Labs: 12/09/17 07:00 12/09/17 07:00 PT 13.0 SECONDS (9.4-12.5) H 12/09/17 08:20 INR 1.13 (0.93-1.08) H 12/09/17 08:20 APTT 29.6 Seconds (25.1-36.5) 12/09/17 08:20 - Constitutional Appears: Non-toxic, No Acute Distress - Head Exam Head Exam: ATRAUMATIC, NORMAL INSPECTION - Eye Exam Eye Exam: EOMI, Normal appearance - ENT Exam ENT Exam: Mucous Membranes Moist - Respiratory Exam Respiratory Exam: Clear to Ausculation Bilateral, NORMAL BREATHING PATTERN. absent: Rales, Rhonchi, Wheezes - Cardiovascular Exam Cardiovascular Exam: REGULAR RHYTHM, +S1, +S2 - GI/Abdominal Exam GI & Abdominal Exam: Soft, Normal Bowel Sounds. absent: Guarding, Rigid, Tenderness, Rebound - Extremities Exam Additional comments: Left foot dressing c/d/i - Back Exam Back Exam: NORMAL INSPECTION - Neurological Exam Neurological Exam: Alert, Awake, Oriented x3 - Psychiatric Exam Psychiatric exam: Normal Affect, Normal Mood - Skin Skin Exam: Dry, Normal Color, Warm Assessment and Plan - Assessment and Plan (Free Text) Assessment: 62yo male with no PMHx not on any home meds presents with 2 week history of left fifth metatarsal swelling and change in color. Patient admitted to med/ surg for L 5th metatarsal OM Plan: Cellulitis of Left foot/Left fifth toe dry gangrene - Left foot MRI: marrow edema of 5th metatarsal- suggestive for osteomyelitis - Left extremity arterial studies: Normal MYRON/PVR; possible left pedal occlusive disease - Left foot xray: No acute fx, mild diffuse circumferential soft tissue swelling nonspecific, no definitive cortical destructive changes however unable to r/o OM - LE dopplers: negative for DVT - Left foot wound culture: +MRSA - Urine and Blood culture: negative - ESR and CRP elevated - Patient went to OR yesterday, s/p Left foot partial 5th ray resection - F/U pathology, wound cultures - ID Consulted, help appreciated - Podiatry Consulted, help appreciated - Continue Teflaro as per ID q12 - Continue vitamin C and thiamine qdaily - Continue local wound care: betadine, DSD - PT/OT ordered, f/u recommendations Anemia - Normocytic anemia - Iron studies point towards ACD - Monitor DM2 - HgbA1c: 10.2 - patient not on any home medications and has poor understanding of DM management - DM educator - RISS low dose - Accucheck ACHS - Lisinopril 5mg qd - Consider long acting insulin depending on coverage during the day - ASSISTED diet HTN - Echo was unremarkable - Lisinopril 10mg po qd Constipation - Colace 100mg po bid GI ppx: Pepcid DVT ppx: Heparin Q8 <Heena Moreno - Last Filed: 12/10/17 16:43> Objective - Vital Signs/Intake and Output Vital Signs (last 24 hours): Temp Pulse Resp BP Pulse Ox 98.2 F 54 L 18 159/83 H 96 12/10/17 14:00 12/10/17 14:00 12/10/17 14:00 12/10/17 14:00 12/10/17 14:00 Intake and Output: 12/10/17 12/10/17 06:59 18:59 Intake Total 420 240 Output Total 700 400 Balance -280 -160 - Medications Medications: Current Medications Acetaminophen (Tylenol 325mg Tab) 650 mg PO Q6H PRN PRN Reason: Pain, Mild (1-3) Amlodipine Besylate (Norvasc) 5 mg PO DAILY [facility] Ascorbic Acid (Vitamin C 500 Mg Tab) 500 mg PO DAILY [facility] Last Admin: 12/10/17 09:50 Dose: 500 mg Docusate Sodium (Colace) 100 mg PO BID [facility] Last Admin: 12/10/17 11:52 Dose: Not Given Famotidine (Pepcid) 20 mg PO 1000,2200 [facility] Last Admin: 12/10/17 09:50 Dose: 20 mg Heparin Sodium (Porcine) (Heparin) 5,000 units SC Q8 [facility] PRN Reason: Protocol Last Admin: 12/10/17 15:14 Dose: 5,000 units Ceftaroline Fosamil 600 mg/ (Sodium Chloride) 100 mls @ 100 mls/hr IVPB Q12 [facility] PRN Reason: Protocol Stop: 12/14/17 17:01 Last Admin: 12/10/17 09:51 Dose: 100 mls/hr Insulin Human Lispro (Humalog Low) 0 units SC ACHS [facility] PRN Reason: Protocol Last Admin: 12/10/17 16:29 Dose: Not Given Lisinopril (Zestril) 10 mg PO DAILY [facility] Last Admin: 12/10/17 10:07 Dose: 10 mg Mupirocin (Bactroban Ointment) 0 gm TOP BID [facility] Last Admin: 12/09/17 09:41 Dose: Not Given Oxycodone/Acetaminophen (Percocet 5/325 Mg Tab) 1 tab PO Q4H PRN PRN Reason: Pain, moderate (4-7) Stop: 12/12/17 13:11 Oxycodone/Acetaminophen (Percocet 5/325 Mg Tab) 2 tab PO Q4H PRN PRN Reason: Pain, severe (8-10) Stop: 12/12/17 13:11 Thiamine HCl (Vitamin B1 Tab) 100 mg PO DAILY [facility] Last Admin: 12/10/17 10:06 Dose: 100 mg - Labs Labs: 12/09/17 07:00 12/09/17 07:00 PT 13.0 SECONDS (9.4-12.5) H 12/09/17 08:20 INR 1.13 (0.93-1.08) H 12/09/17 08:20 APTT 29.6 Seconds (25.1-36.5) 12/09/17 08:20 Attending/Attestation - Attestation I have personally seen and examined this patient.: Yes I have fully participated in the care of the patient.: Yes I have reviewed all pertinent clinical information, including history, physical exam and plan: Yes Notes (Text): 12/10/17 16:42 62 year old male who was admitted with diabetic foot ulceration with infection/ dry gangrene of little toe and cellulitis on leg. MRI was done suggestive of osteomyelitis. WCx +ve for MRSA. Dopplers studies were reviewed and IR/vascular evaluation was appreciated. Continue with iv antibiotics as per ID and wound care as per podiatry. Patient is s/p OR 5th ray resection POD #1. Pending intraop wound culture and pathology. A1c is elevated at 10.2. He is currently on insulin ss. We did discuss with the patient regarding possibly starting long acting insulin which is still hesitant about starting at this time. Heena Moreno MD Hospitalist.
--- NOTE | 2017-12-10 12:51 | PN ---
DATE: 12/10/2017 LOCATION: The patient is in room 578, bed 2. REASON FOR CONSULTATION: Follow up diabetes mellitus, gangrene of the left foot small toe, status post amputation of the small toe of the left foot. SUBJECTIVE: The patient is lying flat in bed without any cardiac symptom of chest pain, shortness of breath, palpitation. The patient is postop surgery for the left fifth toe gangrene amputation yesterday. PHYSICAL EXAMINATION: VITAL SIGNS: Blood pressure 136/80, respirations 20, pulse is 56, temperature 98.6. HEENT: Head is normocephalic. Eyes: Pupils normal. Conjunctivae slightly pale. NECK: JVP low. Carotids equal. THORAX: AP diameter normal. LUNGS: Clear. CARDIOVASCULAR: S1 and S2. ABDOMEN: Soft. No tenderness. No organomegaly. Bowel sounds normal. EXTREMITIES: No clubbing. No cyanosis. LABORATORY DATA: WBC 9.2, hemoglobin 11.1, hematocrit 31.6, platelet 240. Sodium 138, potassium 4.5, BUN 15, creatinine 1.2, sugar random 174. Calcium, phosphorus, magnesium normal. AST, ALT normal. Total protein, albumin normal. Echo on 12/07/2017 showed normal ejection fraction with LV 60-65% ejection fraction. DIAGNOSES: Gangrene of the left foot fifth toe with cellulitis, osteomyelitis and soft tissue infection with methicillin-resistant Staphylococcus, diabetes mellitus, hypertension, history of bradycardia for many years, asymptomatic. The patient's ankle-brachial index/pulse volume recording had been relatively normal. The patient has small vessel disease and has also diabetic neuropathy. History of bradycardia for many years, asymptomatic. TSH was normal. PLAN: The patient on insulin and getting ceftaroline 600 mg IV every 12 hours, thiamine 100 mg daily, lisinopril 10 mg p.o. daily. We will add Norvasc 5 mg daily to control the blood pressure and we will continue to follow with you. The patient was advised to have a stress test as outpatient later on when he is recovered from his surgery. At present, the patient has no cardiac symptoms. We will follow. Arslan Hearn MD [facility] # [id number]
--- NOTE | 2017-12-10 13:22 | CP.PCM.PN ---
Subjective - Date & Time of Evaluation Date of Evaluation: 12/10/17 Time of Evaluation: 13:14 - Subjective Subjective: Podiatry Progress note: Dr. Jauregui 62 year old male patient was seen and evaluated at bedside 1 day s/p left partial 5th ray resection. Patient is AAOx3 and is in NAD. Reports that he slept well yesterday. Denies of any pain to the foot today. Reports that he did not put any weight on the foot and has been walking on the heel. Denies of having any recent F/N/V/C/SOB/CP/headache. Denies of any other pedal complains now. Objective - Vital Signs/Intake and Output Vital Signs (last 24 hours): Temp Pulse Resp BP Pulse Ox 98.6 F 60 20 146/80 96 12/10/17 08:39 12/10/17 10:07 12/10/17 08:39 12/10/17 10:07 12/10/17 08:39 Intake and Output: 12/10/17 12/10/17 06:59 18:59 Intake Total 420 Output Total 700 Balance -280 - Medications Medications: Current Medications Acetaminophen (Tylenol 325mg Tab) 650 mg PO Q6H PRN PRN Reason: Pain, Mild (1-3) Amlodipine Besylate (Norvasc) 5 mg PO DAILY [facility] Ascorbic Acid (Vitamin C 500 Mg Tab) 500 mg PO DAILY [facility] Last Admin: 12/10/17 09:50 Dose: 500 mg Docusate Sodium (Colace) 100 mg PO BID [facility] Last Admin: 12/10/17 11:52 Dose: Not Given Famotidine (Pepcid) 20 mg PO 1000,2200 [facility] Last Admin: 12/10/17 09:50 Dose: 20 mg Heparin Sodium (Porcine) (Heparin) 5,000 units SC Q8 [facility] PRN Reason: Protocol Last Admin: 12/08/17 21:19 Dose: Not Given Ceftaroline Fosamil 600 mg/ (Sodium Chloride) 100 mls @ 100 mls/hr IVPB Q12 [facility] PRN Reason: Protocol Stop: 12/14/17 17:01 Last Admin: 12/10/17 09:51 Dose: 100 mls/hr Insulin Human Lispro (Humalog Low) 0 units SC ACHS [facility] PRN Reason: Protocol Last Admin: 12/10/17 11:51 Dose: 1 units Lisinopril (Zestril) 10 mg PO DAILY [facility] Last Admin: 12/10/17 10:07 Dose: 10 mg Mupirocin (Bactroban Ointment) 0 gm TOP BID [facility] Last Admin: 12/09/17 09:41 Dose: Not Given Oxycodone/Acetaminophen (Percocet 5/325 Mg Tab) 1 tab PO Q4H PRN PRN Reason: Pain, moderate (4-7) Stop: 12/12/17 13:11 Oxycodone/Acetaminophen (Percocet 5/325 Mg Tab) 2 tab PO Q4H PRN PRN Reason: Pain, severe (8-10) Stop: 12/12/17 13:11 Thiamine HCl (Vitamin B1 Tab) 100 mg PO DAILY [facility] Last Admin: 12/10/17 10:06 Dose: 100 mg - Labs Labs: 12/09/17 07:00 12/09/17 07:00 PT 13.0 SECONDS (9.4-12.5) H 12/09/17 08:20 INR 1.13 (0.93-1.08) H 12/09/17 08:20 APTT 29.6 Seconds (25.1-36.5) 12/09/17 08:20 - Constitutional Appears: Well, Non-toxic, No Acute Distress - Extremities Exam Additional comments: VASC: Right DP and PT pulses palpable 2/4. Left DP and PT pulses nonpalpable secondary to edema. CFT <3 seconds to all digits right foot and approx 3 sec to all digits on the left. Temperature gradient warm to cool from proximal to distal with mild increase in temperature on the left lateral foot, nonpitting edema and erythema extending on the left lateral foot appears to be resolving DERM: LLE= Surgical site appears well coapted with no dehiscence, jaida-incision area appears mildly macerated laterally with hyperpigmented skin changed on the proximal medial aspect of the incision site, approx 2-3 cc of purulance drainage noted from the distal aspect of the open surgical site, no purulence, no malodor, erythema appears to be decreasing, edema appears to be resolving seen by increase in skin tension lines on the lateral foot; Ulceration noted to medial aspect of 1st met head measuring approximately 0.5 x 0.5 x 0.1 cm - noted to have a mixed granular/necrotic base and hyperkeratotic rim; serosanguinous drainage present; no periwound erythema; no purulence; no fluctuance; no undermining; no tunneling. RLE=WNL NEURO: Light touch and protective sensation moderately diminished b/l. ORTHO: No pain on palpation left medial 1st met head ulceration. no pain on palpation of the surgical site, Muscle strength 5/5 for all dorisflexors, plantarflexors, inverters, and everters b/l. - Neurological Exam Neurological Exam: Alert, Awake, Oriented x3 - Psychiatric Exam Psychiatric exam: Normal Affect, Normal Mood Assessment and Plan - Assessment and Plan (Free Text) Assessment: 62 year old male 1 day s/p left partial 5th ray resection Plan: Patient seen and evaluated Discussed with attending, Dr. Jauregui Afebrile Pre-op left foot XR: No definitive cortical changes however OM cannot be excluded Pre-op LLE MRI ordered - Suggestive of 5th digit and distal 5th metatarsal head OM Pre-op Left foot WCx: MRSA Bilateral arterial duplex - Normal MYRON/PVR; possible left pedal occlusive disease Vascular consulted - recs appreciated - Agrees with digital amputation Dressing changed using betadine, maxorb, DSD L foot Intra-op WCx: pending Path report: pending Continue IV abx; ID consulted, f/u recs Patient is able to weight bear to the heel in a surgical shoe Monitor labs Podiatry will continue to follow patient while in-house Follow up with Dr. Jauregui as an out-patient up-on discharge from the hospital for further wound care
--- NOTE | 2017-12-10 14:13 | CP.PCM.PN ---
Subjective - Date & Time of Evaluation Date of Evaluation: 12/10/17 Time of Evaluation: 12:35 - Subjective Subjective: Feeling ok, no fevers, less pain in the left foot, no diarrhea. Objective - Vital Signs/Intake and Output Vital Signs (last 24 hours): Temp Pulse Resp BP Pulse Ox 98.6 F 60 20 146/80 96 12/10/17 08:39 12/10/17 10:07 12/10/17 08:39 12/10/17 10:07 12/10/17 08:39 Intake and Output: 12/10/17 12/10/17 06:59 18:59 Intake Total 420 Output Total 700 Balance -280 - Medications Medications: Current Medications Acetaminophen (Tylenol 325mg Tab) 650 mg PO Q6H PRN PRN Reason: Pain, Mild (1-3) Ascorbic Acid (Vitamin C 500 Mg Tab) 500 mg PO DAILY [facility] Last Admin: 12/10/17 09:50 Dose: 500 mg Docusate Sodium (Colace) 100 mg PO BID [facility] Last Admin: 12/09/17 17:30 Dose: 100 mg Famotidine (Pepcid) 20 mg PO 1000,2200 [facility] Last Admin: 12/10/17 09:50 Dose: 20 mg Heparin Sodium (Porcine) (Heparin) 5,000 units SC Q8 [facility] PRN Reason: Protocol Last Admin: 12/08/17 21:19 Dose: Not Given Ceftaroline Fosamil 600 mg/ (Sodium Chloride) 100 mls @ 100 mls/hr IVPB Q12 [facility] PRN Reason: Protocol Stop: 12/14/17 17:01 Last Admin: 12/10/17 09:51 Dose: 100 mls/hr Sodium Chloride (Sodium Chloride 0.9%) 1,000 mls @ 100 mls/hr IV .Q10H [facility] Last Admin: 12/09/17 08:09 Dose: 100 mls/hr Insulin Human Lispro (Humalog Low) 0 units SC ACHS [facility] PRN Reason: Protocol Last Admin: 12/10/17 08:40 Dose: 1 units Lisinopril (Zestril) 10 mg PO DAILY [facility] Last Admin: 12/10/17 10:07 Dose: 10 mg Mupirocin (Bactroban Ointment) 0 gm TOP BID [facility] Last Admin: 12/09/17 09:41 Dose: Not Given Oxycodone/Acetaminophen (Percocet 5/325 Mg Tab) 1 tab PO Q4H PRN PRN Reason: Pain, moderate (4-7) Stop: 12/12/17 13:11 Oxycodone/Acetaminophen (Percocet 5/325 Mg Tab) 2 tab PO Q4H PRN PRN Reason: Pain, severe (8-10) Stop: 12/12/17 13:11 Thiamine HCl (Vitamin B1 Tab) 100 mg PO DAILY [facility] Last Admin: 12/10/17 10:06 Dose: 100 mg - Labs Labs: 12/09/17 07:00 12/09/17 07:00 PT 13.0 SECONDS (9.4-12.5) H 12/09/17 08:20 INR 1.13 (0.93-1.08) H 12/09/17 08:20 APTT 29.6 Seconds (25.1-36.5) 12/09/17 08:20 - Constitutional Appears: Chronically Ill - Head Exam Head Exam: NORMAL INSPECTION - ENT Exam ENT Exam: Mucous Membranes Moist - Neck Exam Neck Exam: absent: Meningismus - Respiratory Exam Respiratory Exam: Decreased Breath Sounds - Cardiovascular Exam Cardiovascular Exam: +S1, +S2 - GI/Abdominal Exam GI & Abdominal Exam: Soft. absent: Tenderness - Extremities Exam Additional comments: left foot with dressings in place Assessment and Plan - Assessment and Plan (Free Text) Plan: Assessment left foot 5th toe osteomyelitis with skin and skin structure infection, growing MRSA S/P partial 5th ray amputation POD #1 DM peripheral neuropathy CAD HTN Plan continue Teflaro - follow up OR cultures and pathology will continue to monitor clinically
[2017-12-11 07:32] LABS: HEMOGLOBIN 11.3 g/dL (14.0-18.0); MEAN CELL VOLUME 92.7 fl (80.0-105.0); MEAN CORPUSCULAR HEMOGLOBIN 31.9 pg (25.0-35.0); MEAN CORPUSCULAR HGB CONC 34.5 g/dl (31.0-37.0); MEAN PLATELET VOLUME 9.3 fl (7.0-11.0); RBC 3.54 10^6/uL (3.5-6.1); RED CELL DISTRIBUTION WIDTH 12.3 % (11.5-14.5)
[2017-12-11 07:47] LABS: BLOOD UREA NITROGEN 18 mg/dL (7-21); CALCIUM 8.8 mg/dL (8.4-10.5); GFR AFRICAN-AMERICAN > 60; GFR NON-AFRICAN AMERICAN 56
[2017-12-11] MEDS: Insulin Lispro (humaLOG) LOW Coverage SC SCH ×4 (09:02→21:42)
--- NOTE | 2017-12-11 09:09 | CP.PCM.PN ---
Subjective - Date & Time of Evaluation Date of Evaluation: 12/11/17 Time of Evaluation: 09:07 - Subjective Subjective: Podiatry Progress note: Dr. Jauregui 62 year old male patient was seen and evaluated at bedside 2 day s/p left partial 5th ray resection. Patient is AAOx3 and is in NAD. Reports that he slept well yesterday. Denies of any pain to the foot today. Reports that he did not put any weight on the foot and has been walking on the heel. Denies of having any recent F/N/V/C/SOB/CP/headache. Denies of any other pedal complains now. Objective - Vital Signs/Intake and Output Vital Signs (last 24 hours): Temp Pulse Resp BP Pulse Ox 98.2 F 54 L 18 159/83 H 96 12/10/17 14:00 12/10/17 14:00 12/10/17 14:00 12/10/17 14:00 12/10/17 14:00 Intake and Output: 12/11/17 12/11/17 06:59 18:59 Intake Total 120 Output Total 200 Balance -80 - Medications Medications: Current Medications Acetaminophen (Tylenol 325mg Tab) 650 mg PO Q6H PRN PRN Reason: Pain, Mild (1-3) Amlodipine Besylate (Norvasc) 5 mg PO DAILY [facility] Ascorbic Acid (Vitamin C 500 Mg Tab) 500 mg PO DAILY [facility] Last Admin: 12/10/17 09:50 Dose: 500 mg Docusate Sodium (Colace) 100 mg PO BID [facility] Last Admin: 12/10/17 11:52 Dose: Not Given Famotidine (Pepcid) 20 mg PO 1000,2200 [facility] Last Admin: 12/10/17 21:36 Dose: 20 mg Heparin Sodium (Porcine) (Heparin) 5,000 units SC Q8 [facility] PRN Reason: Protocol Last Admin: 12/11/17 06:09 Dose: 5,000 units Ceftaroline Fosamil 600 mg/ (Sodium Chloride) 100 mls @ 100 mls/hr IVPB Q12 [facility] PRN Reason: Protocol Stop: 12/14/17 17:01 Last Admin: 12/10/17 21:36 Dose: 100 mls/hr Insulin Human Lispro (Humalog Low) 0 units SC ACHS [facility] PRN Reason: Protocol Last Admin: 12/10/17 22:16 Dose: Not Given Lisinopril (Zestril) 10 mg PO DAILY [facility] Last Admin: 12/10/17 10:07 Dose: 10 mg Mupirocin (Bactroban Ointment) 0 gm TOP BID [facility] Last Admin: 12/09/17 09:41 Dose: Not Given Oxycodone/Acetaminophen (Percocet 5/325 Mg Tab) 1 tab PO Q4H PRN PRN Reason: Pain, moderate (4-7) Stop: 12/12/17 13:11 Oxycodone/Acetaminophen (Percocet 5/325 Mg Tab) 2 tab PO Q4H PRN PRN Reason: Pain, severe (8-10) Stop: 12/12/17 13:11 Thiamine HCl (Vitamin B1 Tab) 100 mg PO DAILY [facility] Last Admin: 12/10/17 10:06 Dose: 100 mg - Labs Labs: 12/11/17 06:40 12/11/17 06:40 PT 13.0 SECONDS (9.4-12.5) H 12/09/17 08:20 INR 1.13 (0.93-1.08) H 12/09/17 08:20 APTT 29.6 Seconds (25.1-36.5) 12/09/17 08:20 - Constitutional Appears: Well, Non-toxic, No Acute Distress - Extremities Exam Additional comments: VASC: Right DP and PT pulses palpable 2/4. Left DP and PT pulses nonpalpable secondary to edema. CFT <3 seconds to all digits right foot and approx 3 sec to all digits on the left. Temperature gradient warm to cool from proximal to distal with mild increase in temperature on the left lateral foot, nonpitting edema and erythema extending on the left lateral foot appears to be resolving DERM: LLE= Surgical site appears well coapted with no dehiscence, jaida-incision area appears mildly macerated laterally with hyperpigmented skin changed on the proximal medial aspect of the incision site, no purulence, no malodor, erythema appears to be decreasing, edema appears to be resolving seen by increase in skin tension lines on the lateral foot; Ulceration noted to medial aspect of 1st met head measuring approximately 0.5 x 0.5 x 0.1 cm - noted to have a mixed granular/necrotic base and hyperkeratotic rim; serosanguinous drainage present; no periwound erythema; no purulence; no fluctuance; no undermining; no tunneling. RLE=WNL NEURO: Light touch and protective sensation moderately diminished b/l. ORTHO: No pain on palpation left medial 1st met head ulceration. no pain on palpation of the surgical site, Muscle strength 5/5 for all dorisflexors, plantarflexors, inverters, and everters b/l. - Neurological Exam Neurological Exam: Alert, Awake, Oriented x3 - Psychiatric Exam Psychiatric exam: Normal Affect, Normal Mood Assessment and Plan - Assessment and Plan (Free Text) Assessment: 62 year old male 2 day s/p left partial 5th ray resection Plan: Patient seen and evaluated Discussed with attending, Dr. Jauregui Afebrile, WBC 10.0 Pre-op left foot XR: No definitive cortical changes however OM cannot be excluded Pre-op LLE MRI ordered - Suggestive of 5th digit and distal 5th metatarsal head OM Pre-op Left foot WCx: MRSA Bilateral arterial duplex - Normal MYRON/PVR; possible left pedal occlusive disease Vascular consulted - recs appreciated - Agrees with digital amputation Dressing changed using betadine, maxorb, DSD L foot Intra-op WCx: preliminary- NO GROWTH Path report: pending Continue IV abx; ID consulted, f/u recs Patient is able to weight bear to the heel in a surgical shoe Podiatry will continue to follow patient while in-house Follow up with Dr. Jauregui as an out-patient up-on discharge from the hospital for further wound care
[2017-12-11] MEDS: Ceftaroline 600 MG in Sodium Chloride 0.9% 100 ML IVPB SCH ×2 (10:10→21:42)
--- NOTE | 2017-12-11 11:03 | CP.PCM.PN ---
<Agustina Webster - Last Filed: 12/11/17 11:10> Subjective - Date & Time of Evaluation Date of Evaluation: 12/11/17 Time of Evaluation: 11:02 - Subjective Subjective: Internal Medicine Progress Note: Patient seen and examined at bedside. Per nursing no acute events overnight. Patient is doing well, offers no complaints at this time. Denies headaches, dizziness, cp, palpitations, sob, abdominal pain, urinary symptoms. Denies any pain. Objective - Vital Signs/Intake and Output Vital Signs (last 24 hours): Temp Pulse Resp BP Pulse Ox 98.9 F 95 H 20 152/69 H 95 12/11/17 06:00 12/11/17 10:10 12/11/17 06:00 12/11/17 10:10 12/11/17 06:00 Intake and Output: 12/11/17 12/11/17 06:59 18:59 Intake Total 120 Output Total 200 Balance -80 - Medications Medications: Current Medications Acetaminophen (Tylenol 325mg Tab) 650 mg PO Q6H PRN PRN Reason: Pain, Mild (1-3) Amlodipine Besylate (Norvasc) 10 mg PO DAILY [facility] Ascorbic Acid (Vitamin C 500 Mg Tab) 500 mg PO DAILY [facility] Last Admin: 12/11/17 09:03 Dose: 500 mg Docusate Sodium (Colace) 100 mg PO BID [facility] Last Admin: 12/11/17 10:09 Dose: 100 mg Famotidine (Pepcid) 20 mg PO 1000,2200 [facility] Last Admin: 12/11/17 09:03 Dose: 20 mg Heparin Sodium (Porcine) (Heparin) 5,000 units SC Q8 [facility] PRN Reason: Protocol Last Admin: 12/11/17 06:09 Dose: 5,000 units Hydralazine HCl (Apresoline) 10 mg PO QID PRN PRN Reason: for sbp>170 Ceftaroline Fosamil 600 mg/ (Sodium Chloride) 100 mls @ 100 mls/hr IVPB Q12 [facility] PRN Reason: Protocol Stop: 12/14/17 17:01 Last Admin: 12/11/17 10:10 Dose: 100 mls/hr Insulin Human Lispro (Humalog Low) 0 units SC ACHS [facility] PRN Reason: Protocol Last Admin: 12/11/17 09:02 Dose: 1 units Lisinopril (Zestril) 20 mg PO DAILY [facility] Mupirocin (Bactroban Ointment) 0 gm TOP BID [facility] Last Admin: 12/09/17 09:41 Dose: Not Given Oxycodone/Acetaminophen (Percocet 5/325 Mg Tab) 1 tab PO Q4H PRN PRN Reason: Pain, moderate (4-7) Stop: 12/12/17 13:11 Oxycodone/Acetaminophen (Percocet 5/325 Mg Tab) 2 tab PO Q4H PRN PRN Reason: Pain, severe (8-10) Stop: 12/12/17 13:11 Thiamine HCl (Vitamin B1 Tab) 100 mg PO DAILY [facility] Last Admin: 12/11/17 10:11 Dose: 100 mg - Labs Labs: 12/11/17 06:40 12/11/17 06:40 PT 13.0 SECONDS (9.4-12.5) H 12/09/17 08:20 INR 1.13 (0.93-1.08) H 12/09/17 08:20 APTT 29.6 Seconds (25.1-36.5) 12/09/17 08:20 - Additional Findings Additional findings: - Constitutional Appears: Non-toxic, No Acute Distress - Head Exam Head Exam: ATRAUMATIC, NORMAL INSPECTION - Eye Exam Eye Exam: EOMI, Normal appearance - ENT Exam ENT Exam: Mucous Membranes Moist - Respiratory Exam Respiratory Exam: Clear to Ausculation Bilateral, NORMAL BREATHING PATTERN. absent: Rales, Rhonchi, Wheezes - Cardiovascular Exam Cardiovascular Exam: REGULAR RHYTHM, +S1, +S2 - GI/Abdominal Exam GI & Abdominal Exam: Soft, Normal Bowel Sounds. absent: Guarding, Rigid, Tenderness, Rebound - Extremities Exam Additional comments: Left foot dressing c/d/i - Back Exam Back Exam: NORMAL INSPECTION - Neurological Exam Neurological Exam: Alert, Awake, Oriented x3 - Psychiatric Exam Psychiatric exam: Normal Affect, Normal Mood - Skin Skin Exam: Dry, Normal Color, Warm Assessment and Plan - Assessment and Plan (Free Text) Assessment: 62yo male with no PMHx not on any home meds presents with 2 week history of left fifth metatarsal swelling and change in color. Patient admitted to med/ surg for L 5th metatarsal OM Plan: Osteomyelitis of Left foot/Left fifth toe dry gangrene - Left foot MRI: marrow edema of 5th metatarsal- suggestive for osteomyelitis - Left extremity arterial studies: Normal MYRON/PVR; possible left pedal occlusive disease - Left foot xray: No acute fx, mild diffuse circumferential soft tissue swelling nonspecific, no definitive cortical destructive changes however unable to r/o OM - LE dopplers: negative for DVT - Left foot wound culture: +MRSA - Urine and Blood culture: negative - s/p Left foot partial 5th ray resection - F/U intraoperative pathology - Intraoperative wound cultures showing no growth x 24 hours - ID Consulted, help appreciated - Podiatry Consulted, help appreciated - Continue Teflaro as per ID q12 - Continue vitamin C and thiamine qdaily - Continue local wound care: betadine, DSD - PT recommending home for disposition Anemia - Normocytic anemia - Iron studies point towards ACD - Monitor DM2 - HgbA1c: 10.2 - Patient not on any home medications and has poor understanding of DM management - DM educator referral - RISS low dose, Accucheck ACHS - Lisinopril 5mg qd - Will consider starting oral hypoglycemic tomorrow - [facility] diet HTN - Echo was unremarkable - Lisinopril 20mg po qd - Norvasc 10mg PO daily - Hydralazine 10mg PO QID prn Constipation - Colace 100mg po bid GI ppx: Pepcid DVT ppx: Heparin Q8 Plan discussed with Dr Moreno <Heena Moreno - Last Filed: 12/11/17 11:34> Objective - Vital Signs/Intake and Output Vital Signs (last 24 hours): Temp Pulse Resp BP Pulse Ox 98.9 F 95 H 20 152/69 H 95 12/11/17 06:00 12/11/17 10:10 12/11/17 06:00 12/11/17 10:10 12/11/17 06:00 Intake and Output: 12/11/17 12/11/17 06:59 18:59 Intake Total 120 Output Total 200 Balance -80 - Medications Medications: Current Medications Acetaminophen (Tylenol 325mg Tab) 650 mg PO Q6H PRN PRN Reason: Pain, Mild (1-3) Amlodipine Besylate (Norvasc) 10 mg PO DAILY [facility] Ascorbic Acid (Vitamin C 500 Mg Tab) 500 mg PO DAILY [facility] Last Admin: 12/11/17 09:03 Dose: 500 mg Docusate Sodium (Colace) 100 mg PO BID [facility] Last Admin: 12/11/17 10:09 Dose: 100 mg Famotidine (Pepcid) 20 mg PO 1000,2200 [facility] Last Admin: 12/11/17 09:03 Dose: 20 mg Heparin Sodium (Porcine) (Heparin) 5,000 units SC Q8 [facility] PRN Reason: Protocol Last Admin: 12/11/17 06:09 Dose: 5,000 units Hydralazine HCl (Apresoline) 10 mg PO QID PRN PRN Reason: for sbp>170 Ceftaroline Fosamil 600 mg/ (Sodium Chloride) 100 mls @ 100 mls/hr IVPB Q12 [facility] PRN Reason: Protocol Stop: 12/14/17 17:01 Last Admin: 12/11/17 10:10 Dose: 100 mls/hr Insulin Human Lispro (Humalog Low) 0 units SC ACHS [facility] PRN Reason: Protocol Last Admin: 12/11/17 09:02 Dose: 1 units Lisinopril (Zestril) 20 mg PO DAILY [facility] Mupirocin (Bactroban Ointment) 0 gm TOP BID [facility] Last Admin: 12/09/17 09:41 Dose: Not Given Oxycodone/Acetaminophen (Percocet 5/325 Mg Tab) 1 tab PO Q4H PRN PRN Reason: Pain, moderate (4-7) Stop: 12/12/17 13:11 Oxycodone/Acetaminophen (Percocet 5/325 Mg Tab) 2 tab PO Q4H PRN PRN Reason: Pain, severe (8-10) Stop: 12/12/17 13:11 Thiamine HCl (Vitamin B1 Tab) 100 mg PO DAILY [facility] Last Admin: 12/11/17 10:11 Dose: 100 mg - Labs Labs: 12/11/17 06:40 12/11/17 06:40 PT 13.0 SECONDS (9.4-12.5) H 12/09/17 08:20 INR 1.13 (0.93-1.08) H 12/09/17 08:20 APTT 29.6 Seconds (25.1-36.5) 12/09/17 08:20 Attending/Attestation - Attestation I have personally seen and examined this patient.: Yes I have fully participated in the care of the patient.: Yes I have reviewed all pertinent clinical information, including history, physical exam and plan: Yes Notes (Text): 12/11/17 11:33 62 year old male who was admitted with diabetic foot ulceration with infection/ dry gangrene of little toe and cellulitis on leg. MRI was done suggestive of osteomyelitis. WCx +ve for MRSA. Dopplers studies were reviewed and IR/vascular evaluation was appreciated. Continue with iv antibiotics as per ID and wound care as per podiatry. Patient is s/p OR 5th ray resection POD #2. Pending intraop wound culture ( prelim is negative) and pathology. A1c is elevated at 10.2. He is currently on insulin ss. He is refusing insulin therapy at this time. Heena Moreno MD Hospitalist.
--- NOTE | 2017-12-11 13:51 | CP.PCM.PN ---
Subjective - Date & Time of Evaluation Date of Evaluation: 12/11/17 Time of Evaluation: 12:55 - Subjective Subjective: No fevers, not in distress. Objective - Vital Signs/Intake and Output Vital Signs (last 24 hours): Temp Pulse Resp BP Pulse Ox 98.2 F 54 L 18 159/83 H 96 12/10/17 14:00 12/10/17 14:00 12/10/17 14:00 12/10/17 14:00 12/10/17 14:00 Intake and Output: 12/11/17 12/11/17 06:59 18:59 Intake Total 120 Output Total 200 Balance -80 - Medications Medications: Current Medications Acetaminophen (Tylenol 325mg Tab) 650 mg PO Q6H PRN PRN Reason: Pain, Mild (1-3) Amlodipine Besylate (Norvasc) 5 mg PO DAILY [facility] Ascorbic Acid (Vitamin C 500 Mg Tab) 500 mg PO DAILY [facility] Last Admin: 12/10/17 09:50 Dose: 500 mg Docusate Sodium (Colace) 100 mg PO BID [facility] Last Admin: 12/10/17 11:52 Dose: Not Given Famotidine (Pepcid) 20 mg PO 1000,2200 [facility] Last Admin: 12/10/17 21:36 Dose: 20 mg Heparin Sodium (Porcine) (Heparin) 5,000 units SC Q8 [facility] PRN Reason: Protocol Last Admin: 12/11/17 06:09 Dose: 5,000 units Ceftaroline Fosamil 600 mg/ (Sodium Chloride) 100 mls @ 100 mls/hr IVPB Q12 [facility] PRN Reason: Protocol Stop: 12/14/17 17:01 Last Admin: 12/10/17 21:36 Dose: 100 mls/hr Insulin Human Lispro (Humalog Low) 0 units SC ACHS [facility] PRN Reason: Protocol Last Admin: 12/10/17 22:16 Dose: Not Given Lisinopril (Zestril) 10 mg PO DAILY [facility] Last Admin: 12/10/17 10:07 Dose: 10 mg Mupirocin (Bactroban Ointment) 0 gm TOP BID [facility] Last Admin: 12/09/17 09:41 Dose: Not Given Oxycodone/Acetaminophen (Percocet 5/325 Mg Tab) 1 tab PO Q4H PRN PRN Reason: Pain, moderate (4-7) Stop: 12/12/17 13:11 Oxycodone/Acetaminophen (Percocet 5/325 Mg Tab) 2 tab PO Q4H PRN PRN Reason: Pain, severe (8-10) Stop: 12/12/17 13:11 Thiamine HCl (Vitamin B1 Tab) 100 mg PO DAILY [facility] Last Admin: 12/10/17 10:06 Dose: 100 mg - Labs Labs: 12/09/17 07:00 12/09/17 07:00 PT 13.0 SECONDS (9.4-12.5) H 12/09/17 08:20 INR 1.13 (0.93-1.08) H 12/09/17 08:20 APTT 29.6 Seconds (25.1-36.5) 12/09/17 08:20 - Constitutional Appears: Chronically Ill - Head Exam Head Exam: NORMAL INSPECTION - Neck Exam Neck Exam: absent: Meningismus - Respiratory Exam Respiratory Exam: Decreased Breath Sounds - Cardiovascular Exam Cardiovascular Exam: +S1, +S2 - GI/Abdominal Exam GI & Abdominal Exam: Soft. absent: Tenderness Assessment and Plan - Assessment and Plan (Free Text) Plan: Assessment left foot 5th toe osteomyelitis with skin and skin structure infection, growing MRSA S/P partial 5th ray amputation POD #2 DM peripheral neuropathy CAD HTN Plan continue Teflaro - follow up OR cultures and pathology will continue to monitor clinically
[2017-12-12] MEDS: Insulin Lispro (humaLOG) LOW Coverage SC SCH ×3 (07:30→16:00)
[2017-12-12 07:46] LABS: HEMOGLOBIN 10.8 g/dL (14.0-18.0); MEAN CELL VOLUME 92.4 fl (80.0-105.0); MEAN CORPUSCULAR HEMOGLOBIN 31.4 pg (25.0-35.0); MEAN PLATELET VOLUME 9.3 fl (7.0-11.0); RBC 3.44 10^6/uL (3.5-6.1); RED CELL DISTRIBUTION WIDTH 12.4 % (11.5-14.5); WHITE BLOOD COUNT 8.6 10^3/ul (4.5-11.0)
[2017-12-12 07:58] LABS: BLOOD UREA NITROGEN 18 mg/dL (7-21); CALCIUM 8.8 mg/dL (8.4-10.5); GFR AFRICAN-AMERICAN > 60; GFR NON-AFRICAN AMERICAN 52
--- NOTE | 2017-12-12 08:41 | CP.PCM.PN ---
<Agustina Webster - Last Filed: 12/12/17 11:55> Subjective - Date & Time of Evaluation Date of Evaluation: 12/12/17 Time of Evaluation: 08:41 - Subjective Subjective: Internal Medicine Progress Note: Patient seen and examined at bedside. Per nursing no acute events overnight. Patient is doing well, offering no complaints at this time. Last bowel movement was yesterday. Denies headaches, dizziness, cp, palpitations, sob, abdominal pain, urinary symptoms. Pathology still pending. Objective - Vital Signs/Intake and Output Vital Signs (last 24 hours): Temp Pulse Resp BP Pulse Ox 98.1 F 50 L 20 147/85 95 12/11/17 22:00 12/11/17 22:00 12/11/17 22:00 12/11/17 22:00 12/11/17 22:00 Intake and Output: 12/12/17 12/12/17 06:59 18:59 Intake Total 360 720 Output Total 1200 Balance 360 -480 - Medications Medications: Current Medications Acetaminophen (Tylenol 325mg Tab) 650 mg PO Q6H PRN PRN Reason: Pain, Mild (1-3) Amlodipine Besylate (Norvasc) 10 mg PO DAILY [facility] Ascorbic Acid (Vitamin C 500 Mg Tab) 500 mg PO DAILY [facility] Last Admin: 12/11/17 09:03 Dose: 500 mg Docusate Sodium (Colace) 100 mg PO BID [facility] Last Admin: 12/11/17 18:13 Dose: 100 mg Famotidine (Pepcid) 20 mg PO 1000,2200 [facility] Last Admin: 12/11/17 21:42 Dose: 20 mg Heparin Sodium (Porcine) (Heparin) 5,000 units SC Q8 [facility] PRN Reason: Protocol Last Admin: 12/12/17 06:25 Dose: 5,000 units Hydralazine HCl (Apresoline) 10 mg PO QID PRN PRN Reason: for sbp>170 Ceftaroline Fosamil 600 mg/ (Sodium Chloride) 100 mls @ 100 mls/hr IVPB Q12 [facility] PRN Reason: Protocol Stop: 12/14/17 17:01 Last Admin: 12/11/17 21:42 Dose: 100 mls/hr Insulin Human Lispro (Humalog Low) 0 units SC ACHS [facility] PRN Reason: Protocol Last Admin: 12/11/17 21:42 Dose: Not Given Lisinopril (Zestril) 20 mg PO DAILY [facility] Last Admin: 12/11/17 10:00 Dose: 20 mg Mupirocin (Bactroban Ointment) 0 gm TOP BID [facility] Last Admin: 12/09/17 09:41 Dose: Not Given Oxycodone/Acetaminophen (Percocet 5/325 Mg Tab) 1 tab PO Q4H PRN PRN Reason: Pain, moderate (4-7) Stop: 12/12/17 13:11 Oxycodone/Acetaminophen (Percocet 5/325 Mg Tab) 2 tab PO Q4H PRN PRN Reason: Pain, severe (8-10) Stop: 12/12/17 13:11 Thiamine HCl (Vitamin B1 Tab) 100 mg PO DAILY [facility] Last Admin: 12/11/17 10:11 Dose: 100 mg - Labs Labs: 12/12/17 07:00 12/12/17 07:00 PT 13.0 SECONDS (9.4-12.5) H 12/09/17 08:20 INR 1.13 (0.93-1.08) H 12/09/17 08:20 APTT 29.6 Seconds (25.1-36.5) 12/09/17 08:20 - Constitutional Appears: Well, No Acute Distress - Head Exam Head Exam: ATRAUMATIC, NORMAL INSPECTION, NORMOCEPHALIC - Eye Exam Eye Exam: EOMI, Normal appearance Pupil Exam: NORMAL ACCOMODATION - ENT Exam ENT Exam: Mucous Membranes Moist - Neck Exam Neck Exam: Full ROM - Respiratory Exam Respiratory Exam: Clear to Ausculation Bilateral, NORMAL BREATHING PATTERN. absent: Rales, Rhonchi, Wheezes - Cardiovascular Exam Cardiovascular Exam: REGULAR RHYTHM, +S1, +S2 - GI/Abdominal Exam GI & Abdominal Exam: Soft, Normal Bowel Sounds. absent: Guarding, Rigid, Tenderness - Extremities Exam Additional comments: Dressing intact, +pedal pulses - Back Exam Back Exam: NORMAL INSPECTION - Neurological Exam Neurological Exam: Alert, Awake, Oriented x3 - Psychiatric Exam Psychiatric exam: Normal Affect, Normal Mood - Skin Skin Exam: Dry, Normal Color, Warm Assessment and Plan - Assessment and Plan (Free Text) Assessment: 62yo male with no PMHx not on any home meds presents with 2 week history of left fifth metatarsal swelling and change in color. Patient admitted to med/ surg for L 5th metatarsal OM Plan: Osteomyelitis of Left foot/Left fifth toe dry gangrene - Left foot MRI: marrow edema of 5th metatarsal- suggestive for osteomyelitis - Left extremity arterial studies: Normal MYRON/PVR; possible left pedal occlusive disease - Left foot xray: No acute fx, mild diffuse circumferential soft tissue swelling nonspecific, no definitive cortical destructive changes however unable to r/o OM - LE dopplers: negative for DVT - Left foot wound culture: +MRSA - Urine and Blood culture: negative - s/p Left foot partial 5th ray resection - F/U intraoperative pathology - Intraoperative wound cultures + staph aureus, sensitivites reviewed - ID Consulted, help appreciated - Podiatry Consulted, help appreciated - Continue Teflaro as per ID q12 - Continue vitamin C and thiamine qdaily - Continue local wound care: betadine, DSD - PT recommending home for disposition Anemia - Normocytic anemia - Iron studies point towards ACD - Monitor DM2 - HgbA1c: 10.2 - Patient not on any home medications and has poor understanding of DM management - DM educator referral - RISS low dose, Accucheck ACHS - Metformin 500mg PO BID - [facility] diet HTN - Echo was unremarkable - Lisinopril 20mg po qd - Norvasc 10mg PO daily - Hydralazine 10mg PO QID prn Constipation - Colace 100mg po bid GI ppx: Pepcid DVT ppx: Heparin Q8 Plan discussed with Dr Moreno <Heena Moreno - Last Filed: 12/12/17 12:22> Objective - Vital Signs/Intake and Output Vital Signs (last 24 hours): Temp Pulse Resp BP Pulse Ox 98.6 F 57 L 20 131/70 97 12/12/17 06:00 12/12/17 06:00 12/12/17 06:00 12/12/17 06:00 12/12/17 06:00 Intake and Output: 12/12/17 12/12/17 06:59 18:59 Intake Total 360 720 Output Total 1200 Balance 360 -480 - Medications Medications: Current Medications Acetaminophen (Tylenol 325mg Tab) 650 mg PO Q6H PRN PRN Reason: Pain, Mild (1-3) Amlodipine Besylate (Norvasc) 10 mg PO DAILY [facility] Ascorbic Acid (Vitamin C 500 Mg Tab) 500 mg PO DAILY [facility] Last Admin: 12/11/17 09:03 Dose: 500 mg Docusate Sodium (Colace) 100 mg PO BID [facility] Last Admin: 12/11/17 18:13 Dose: 100 mg Famotidine (Pepcid) 20 mg PO 1000,2200 [facility] Last Admin: 12/11/17 21:42 Dose: 20 mg Heparin Sodium (Porcine) (Heparin) 5,000 units SC Q8 [facility] PRN Reason: Protocol Last Admin: 12/12/17 06:25 Dose: 5,000 units Hydralazine HCl (Apresoline) 10 mg PO QID PRN PRN Reason: for sbp>170 Ceftaroline Fosamil 600 mg/ (Sodium Chloride) 100 mls @ 100 mls/hr IVPB Q12 [facility] PRN Reason: Protocol Stop: 12/14/17 17:01 Last Admin: 12/11/17 21:42 Dose: 100 mls/hr Insulin Human Lispro (Humalog Low) 0 units SC ACHS [facility] PRN Reason: Protocol Last Admin: 12/11/17 21:42 Dose: Not Given Lisinopril (Zestril) 20 mg PO DAILY [facility] Last Admin: 12/11/17 10:00 Dose: 20 mg Metformin HCl (Glucophage) 500 mg PO BID [facility] Mupirocin (Bactroban Ointment) 0 gm TOP BID [facility] Last Admin: 12/09/17 09:41 Dose: Not Given Thiamine HCl (Vitamin B1 Tab) 100 mg PO DAILY [facility] Last Admin: 12/11/17 10:11 Dose: 100 mg - Labs Labs: 12/12/17 07:00 12/12/17 07:00 PT 13.0 SECONDS (9.4-12.5) H 12/09/17 08:20 INR 1.13 (0.93-1.08) H 12/09/17 08:20 APTT 29.6 Seconds (25.1-36.5) 12/09/17 08:20 Attending/Attestation - Attestation I have personally seen and examined this patient.: Yes I have fully participated in the care of the patient.: Yes I have reviewed all pertinent clinical information, including history, physical exam and plan: Yes Notes (Text): 12/12/17 12:20 62 year old male who was admitted with diabetic foot ulceration with infection/ dry gangrene of little toe and cellulitis on leg. MRI was done suggestive of osteomyelitis. Initial WCx was positive for MRSA. Dopplers studies were reviewed and IR/vascular evaluation was appreciated. Continue with iv antibiotics as per ID and wound care as per podiatry. Patient is s/p OR 5th ray resection POD #3. Intraop wound culture is positive for S Aureus. Pathology is pending. A1c is elevated at 10.2. He is currently on insulin ss. He is refusing insulin therapy at this time. Metformin is started. Heena Moreno MD Hospitalist.
--- NOTE | 2017-12-12 11:36 | CP.PCM.PN ---
Subjective - Date & Time of Evaluation Date of Evaluation: 12/12/17 Time of Evaluation: 11:32 - Subjective Subjective: Podiatry Progress note: Dr. Jauregui 62 year old male patient was seen and evaluated at bedside 3 dayS s/p left partial 5th ray resection. Patient is AAOx3 and is in NAD. Reports that he slept well yesterday. Denies of any pain to the foot today. Reports that he did not put any weight on the foot and has been walking on the heel. Denies of having any recent F/N/V/C/SOB/CP/headache. Denies of any other pedal complains now. Objective - Vital Signs/Intake and Output Vital Signs (last 24 hours): Temp Pulse Resp BP Pulse Ox 98.6 F 57 L 20 131/70 97 12/12/17 06:00 12/12/17 06:00 12/12/17 06:00 12/12/17 06:00 12/12/17 06:00 Intake and Output: 12/12/17 12/12/17 06:59 18:59 Intake Total 360 720 Output Total 1200 Balance 360 -480 - Medications Medications: Current Medications Acetaminophen (Tylenol 325mg Tab) 650 mg PO Q6H PRN PRN Reason: Pain, Mild (1-3) Amlodipine Besylate (Norvasc) 10 mg PO DAILY [facility] Ascorbic Acid (Vitamin C 500 Mg Tab) 500 mg PO DAILY [facility] Last Admin: 12/11/17 09:03 Dose: 500 mg Docusate Sodium (Colace) 100 mg PO BID [facility] Last Admin: 12/11/17 18:13 Dose: 100 mg Famotidine (Pepcid) 20 mg PO 1000,2200 [facility] Last Admin: 12/11/17 21:42 Dose: 20 mg Heparin Sodium (Porcine) (Heparin) 5,000 units SC Q8 [facility] PRN Reason: Protocol Last Admin: 12/12/17 06:25 Dose: 5,000 units Hydralazine HCl (Apresoline) 10 mg PO QID PRN PRN Reason: for sbp>170 Ceftaroline Fosamil 600 mg/ (Sodium Chloride) 100 mls @ 100 mls/hr IVPB Q12 [facility] PRN Reason: Protocol Stop: 12/14/17 17:01 Last Admin: 12/11/17 21:42 Dose: 100 mls/hr Insulin Human Lispro (Humalog Low) 0 units SC ACHS [facility] PRN Reason: Protocol Last Admin: 12/11/17 21:42 Dose: Not Given Lisinopril (Zestril) 20 mg PO DAILY [facility] Last Admin: 12/11/17 10:00 Dose: 20 mg Mupirocin (Bactroban Ointment) 0 gm TOP BID [facility] Last Admin: 12/09/17 09:41 Dose: Not Given Oxycodone/Acetaminophen (Percocet 5/325 Mg Tab) 1 tab PO Q4H PRN PRN Reason: Pain, moderate (4-7) Stop: 12/12/17 13:11 Oxycodone/Acetaminophen (Percocet 5/325 Mg Tab) 2 tab PO Q4H PRN PRN Reason: Pain, severe (8-10) Stop: 12/12/17 13:11 Thiamine HCl (Vitamin B1 Tab) 100 mg PO DAILY [facility] Last Admin: 12/11/17 10:11 Dose: 100 mg - Labs Labs: 12/12/17 07:00 12/12/17 07:00 PT 13.0 SECONDS (9.4-12.5) H 12/09/17 08:20 INR 1.13 (0.93-1.08) H 12/09/17 08:20 APTT 29.6 Seconds (25.1-36.5) 12/09/17 08:20 - Constitutional Appears: Well, Non-toxic, No Acute Distress - Extremities Exam Additional comments: VASC: Right DP and PT pulses palpable 2/4. Left DP and PT pulses nonpalpable secondary to edema. CFT <3 seconds to all digits right foot and approx 3 sec to all digits on the left. Temperature gradient warm to cool from proximal to distal with mild increase in temperature on the left lateral foot, nonpitting edema and erythema extending on the left lateral foot appears to be resolving DERM: LLE= Surgical site appears well coapted with no dehiscence, jaida-incision area appears macerated laterally with hyperpigmented skin changeS on the proximal medial aspect of the incision site, no purulence, no malodor, erythema appears to be decreasing, edema appears to be resolving seen by increase in skin tension lines on the lateral foot; Ulceration noted to medial aspect of 1st met head measuring approximately 0.5 x 0.5 x 0.1 cm - noted to have a mixed granular /necrotic base and hyperkeratotic rim; serosanguinous drainage present; no periwound erythema; no purulence; no fluctuance; no undermining; no tunneling. RLE=WNL NEURO: Light touch and protective sensation moderately diminished b/l. ORTHO: No pain on palpation left medial 1st met head ulceration. no pain on palpation of the surgical site, Muscle strength 5/5 for all dorisflexors, plantarflexors, inverters, and everters b/l. - Neurological Exam Neurological Exam: Alert, Awake, Oriented x3 - Psychiatric Exam Psychiatric exam: Normal Affect, Normal Mood Assessment and Plan - Assessment and Plan (Free Text) Assessment: 62 year old male 3 day s/p left partial 5th ray resection Plan: Patient seen and evaluated Discussed with attending, Dr. Jauregui Afebrile, WBC 8.6 Pre-op left foot XR: No definitive cortical changes however OM cannot be excluded Pre-op LLE MRI ordered - Suggestive of 5th digit and distal 5th metatarsal head OM Pre-op Left foot WCx: MRSA Bilateral arterial duplex - Normal MYRON/PVR; possible left pedal occlusive disease Vascular consulted - recs appreciated - Agrees with digital amputation Dressing changed using betadine, DSD L foot Intra-op WCx: S. AUREUS Path report: pending Continue IV abx; f/u recs Patient is able to weight bear to the heel in a surgical shoe Podiatry will continue to follow patient while in-house Follow up with Dr. Jauregui as an out-patient up-on discharge from the hospital for further wound care
[2017-12-12] MEDS: Ceftaroline 600 MG in Sodium Chloride 0.9% 100 ML IVPB SCH ×2 (12:11→21:58)
--- NOTE | 2017-12-12 15:14 | CP.PCM.PN ---
Subjective - Date & Time of Evaluation Date of Evaluation: 12/12/17 Time of Evaluation: 14:20 - Subjective Subjective: No fevers, not in distress. Objective - Vital Signs/Intake and Output Vital Signs (last 24 hours): Temp Pulse Resp BP Pulse Ox 98.1 F 50 L 20 147/85 95 12/11/17 22:00 12/11/17 22:00 12/11/17 22:00 12/11/17 22:00 12/11/17 22:00 Intake and Output: 12/12/17 12/12/17 06:59 18:59 Intake Total 360 720 Output Total 1200 Balance 360 -480 - Medications Medications: Current Medications Acetaminophen (Tylenol 325mg Tab) 650 mg PO Q6H PRN PRN Reason: Pain, Mild (1-3) Amlodipine Besylate (Norvasc) 10 mg PO DAILY [facility] Ascorbic Acid (Vitamin C 500 Mg Tab) 500 mg PO DAILY [facility] Last Admin: 12/11/17 09:03 Dose: 500 mg Docusate Sodium (Colace) 100 mg PO BID [facility] Last Admin: 12/11/17 18:13 Dose: 100 mg Famotidine (Pepcid) 20 mg PO 1000,2200 [facility] Last Admin: 12/11/17 21:42 Dose: 20 mg Heparin Sodium (Porcine) (Heparin) 5,000 units SC Q8 [facility] PRN Reason: Protocol Last Admin: 12/12/17 06:25 Dose: 5,000 units Hydralazine HCl (Apresoline) 10 mg PO QID PRN PRN Reason: for sbp>170 Ceftaroline Fosamil 600 mg/ (Sodium Chloride) 100 mls @ 100 mls/hr IVPB Q12 [facility] PRN Reason: Protocol Stop: 12/14/17 17:01 Last Admin: 12/11/17 21:42 Dose: 100 mls/hr Insulin Human Lispro (Humalog Low) 0 units SC ACHS [facility] PRN Reason: Protocol Last Admin: 12/11/17 21:42 Dose: Not Given Lisinopril (Zestril) 20 mg PO DAILY [facility] Last Admin: 12/11/17 10:00 Dose: 20 mg Mupirocin (Bactroban Ointment) 0 gm TOP BID [facility] Last Admin: 12/09/17 09:41 Dose: Not Given Oxycodone/Acetaminophen (Percocet 5/325 Mg Tab) 1 tab PO Q4H PRN PRN Reason: Pain, moderate (4-7) Stop: 12/12/17 13:11 Oxycodone/Acetaminophen (Percocet 5/325 Mg Tab) 2 tab PO Q4H PRN PRN Reason: Pain, severe (8-10) Stop: 12/12/17 13:11 Thiamine HCl (Vitamin B1 Tab) 100 mg PO DAILY [facility] Last Admin: 12/11/17 10:11 Dose: 100 mg - Labs Labs: 12/12/17 07:00 12/12/17 07:00 PT 13.0 SECONDS (9.4-12.5) H 12/09/17 08:20 INR 1.13 (0.93-1.08) H 12/09/17 08:20 APTT 29.6 Seconds (25.1-36.5) 12/09/17 08:20 - Constitutional Appears: Non-toxic, Chronically Ill - Head Exam Head Exam: NORMAL INSPECTION - ENT Exam ENT Exam: Mucous Membranes Moist - Neck Exam Neck Exam: absent: Meningismus - Respiratory Exam Respiratory Exam: Decreased Breath Sounds - Cardiovascular Exam Cardiovascular Exam: +S1, +S2 - GI/Abdominal Exam GI & Abdominal Exam: Soft. absent: Tenderness Assessment and Plan - Assessment and Plan (Free Text) Plan: Assessment left foot 5th toe osteomyelitis with skin and skin structure infection, growing MRSA in the soft tissue and MSSA in the bone S/P partial 5th ray amputation POD #3 DM peripheral neuropathy CAD HTN Plan continue Teflaro - follow up OR pathology will continue to monitor clinically
--- NOTE | 2017-12-12 15:21 | PN ---
DATE: 12/12/2017 REASON FOR THE CONSULTATION AND FOLLOWUP: Preoperative evaluation and postoperative followup for toe gangrene, diabetes, hypertension, hyperlipidemia. SUBJECTIVE: The patient denies any chest pain, shortness of breath, any palpitation. OBJECTIVE: GENERAL: Not in any apparent distress, lying flat on the bed. No complaint of chest pain. VITAL SIGNS: Temperature afebrile, heart rate 56, blood pressure 130/70. HEENT: PERRLA. Extraocular muscles intact. NECK: Supple. No carotid bruit. No thyromegaly. CHEST: Clear to auscultation. HEART: S1 and S2 regular. ABDOMEN: Soft. EXTREMITIES: Clubbing and cyanosis negative. LABORATORY DATA: Blood workup as follows; WBC 8.6, hemoglobin 10.8, hematocrit 31.8, platelet count 256. Chemistry shows sodium 130, potassium 4.5, chloride 102, carbon dioxide 29, anion gap of 12, BUN 18, creatinine 1.4. 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 The patient had echocardiography on 12/07/2017 that showed ejection fraction 60-65%, trace aortic regurgitation, trace mitral regurgitation, mild tricuspid regurgitation, right ventricular systolic pressure 39. RECOMMENDATIONS: The patient is not on beta gerry because the patient has baseline bradycardia. Continue amlodipine 10 mg for better control of the blood pressure, which is stable now. Continue lisinopril 20 mg started yesterday, better controlled. Discuss with the patient for risk stratification, stress test tomorrow. The patient is reluctant. After lengthy discussion back and forth, the patient wanted to have treadmill test, which I mentioned, the patient has recently cellulitis and swelling of the leg and amputation, cannot go on the treadmill. The chemical test, the patient does not want chemical stress test suggested for risk stratification. The patient wanted to get later when the foot gets better. Wanted to walk on the treadmill, so we will hold it off for now. If remaining stable, we will sign off and glad to follow p.r.n. Followup electrolytes. Continue lisinopril. Continue amlodipine. The patient is not on beta gerry because of baseline bradycardia, but suggested again a stress test. The patient said that he will schedule later on when the left foot gets better. Thank you, Dr. Moreno for providing us the opportunity in taking care of Rishabh Baez. Arslan Causey MD
[2017-12-13 08:07] LABS: MEAN CORPUSCULAR HEMOGLOBIN 31.4 pg (25.0-35.0); MEAN CORPUSCULAR HGB CONC 34.2 g/dl (31.0-37.0); MEAN PLATELET VOLUME 9.2 fl (7.0-11.0); RBC 3.5 10^6/uL (3.5-6.1); RED CELL DISTRIBUTION WIDTH 12.3 % (11.5-14.5)
--- NOTE | 2017-12-13 08:09 | PN ---
DATE: 12/11/2017 REASON FOR THE CONSULTATION AND FOLLOWUP: Diabetes, peripheral arterial disease, status post amputation of small toe of the left foot, cardiac evaluation and followup. SUBJECTIVE: The patient denies any chest pain, shortness of breath, or any palpitation. OBJECTIVE: GENERAL: Not in apparent distress. VITAL SIGNS: Temperature afebrile. Heart rate , blood pressure 152/96. HEENT: PERRLA, intact. NECK: Supple. No carotid bruit or thyromegaly. CHEST: Clear to auscultation. HEART: S1 and S2 regular. ABDOMEN: Soft. EXTREMITIES: Clubbing and cyanosis negative. LABORATORY DATA: Blood workup as follows: WBC 10, hemoglobin , hematocrit 32.8, platelet count 248. Chemistry shows sodium 130, potassium 4.5, chloride 102, carbon dioxide 30, anion gap of 12, BUN 18, creatinine 1.3. IMPRESSION: Peripheral arterial disease, ex-smoker, gangrene of the left foot, osteomyelitis, soft tissue infection with Staphylococcus-aureus infection, diabetes, hypertension, hyperlipidemia. Relatively normal ELAINE, the patient has small vessel disease, history of bradycardia, asymptomatic for many years. The patient had an echocardiography done on 12/07/2017 that revealed ejection fraction , trace aortic regurgitation, trace mitral regurgitation, mild tricuspid regurgitation. RECOMMENDATION: Needs aggressive control of blood pressure. The patient has history of bradycardia, asymptomatic, will not use beta-gerry, but we will increase Lisinopril to 20 mg daily from today and will give amlodipine. We will follow with you. Arslan Causey MD
[2017-12-13 08:18] LABS: BLOOD UREA NITROGEN 19 mg/dL (7-21); CALCIUM 8.7 mg/dL (8.4-10.5); GFR AFRICAN-AMERICAN > 60; GFR NON-AFRICAN AMERICAN 56
[2017-12-13] MEDS: Ceftaroline 600 MG in Sodium Chloride 0.9% 100 ML IVPB SCH ×2 (09:56→22:43)
[2017-12-13] MEDS: Insulin Lispro (humaLOG) LOW Coverage SC SCH ×4 (09:58→22:44)
--- NOTE | 2017-12-13 10:28 | CP.PCM.PN ---
<Nola Erickson - Last Filed: 12/13/17 10:24> Subjective - Date & Time of Evaluation Date of Evaluation: 12/13/17 Time of Evaluation: 10:24 - Subjective Subjective: Podiatry Progress note: Dr. Jauregui 62 year old male patient was seen and evaluated at bedside 4 days s/p left partial 5th ray resection. Patient is AAOx3 and is in NAD. Reports that he is ready to go home. Denies of any pain to the foot today. Reports that he did not put any weight on the foot and has been walking on the heel. Denies of having any recent F/N/V/C/SOB/CP/headache. Denies of any other pedal complains now. Objective - Vital Signs/Intake and Output Vital Signs (last 24 hours): Temp Pulse Resp BP Pulse Ox 98.2 F 61 20 144/74 99 12/13/17 08:54 12/13/17 10:00 12/13/17 08:54 12/13/17 10:00 12/13/17 08:54 Intake and Output: 12/13/17 12/13/17 06:59 18:59 Intake Total 360 Output Total 700 Balance -340 - Medications Medications: Current Medications Acetaminophen (Tylenol 325mg Tab) 650 mg PO Q6H PRN PRN Reason: Pain, Mild (1-3) Last Admin: 12/12/17 12:08 Dose: 650 mg Amlodipine Besylate (Norvasc) 10 mg PO DAILY [facility] Last Admin: 12/13/17 09:58 Dose: 10 mg Ascorbic Acid (Vitamin C 500 Mg Tab) 500 mg PO DAILY [facility] Last Admin: 12/13/17 10:00 Dose: 500 mg Docusate Sodium (Colace) 100 mg PO BID [facility] Last Admin: 12/13/17 09:57 Dose: 100 mg Famotidine (Pepcid) 20 mg PO 1000,2200 [facility] Last Admin: 12/13/17 09:59 Dose: 20 mg Heparin Sodium (Porcine) (Heparin) 5,000 units SC Q8 [facility] PRN Reason: Protocol Last Admin: 12/13/17 05:36 Dose: 5,000 units Hydralazine HCl (Apresoline) 10 mg PO QID PRN PRN Reason: for sbp>170 Ceftaroline Fosamil 600 mg/ (Sodium Chloride) 100 mls @ 100 mls/hr IVPB Q12 [facility] PRN Reason: Protocol Stop: 12/14/17 17:01 Last Admin: 12/13/17 09:56 Dose: 100 mls/hr Insulin Human Lispro (Humalog Low) 0 units SC ACHS [facility] PRN Reason: Protocol Last Admin: 12/13/17 09:58 Dose: Not Given Lisinopril (Zestril) 20 mg PO DAILY [facility] Last Admin: 12/13/17 10:00 Dose: 20 mg Metformin HCl (Glucophage) 500 mg PO BID [facility] Last Admin: 12/13/17 09:58 Dose: 500 mg Mupirocin (Bactroban Ointment) 0 gm TOP BID [facility] Last Admin: 12/09/17 09:41 Dose: Not Given Thiamine HCl (Vitamin B1 Tab) 100 mg PO DAILY [facility] Last Admin: 12/13/17 10:00 Dose: Not Given - Labs Labs: 12/13/17 07:30 12/13/17 07:30 PT 13.0 SECONDS (9.4-12.5) H 12/09/17 08:20 INR 1.13 (0.93-1.08) H 12/09/17 08:20 APTT 29.6 Seconds (25.1-36.5) 12/09/17 08:20 - Constitutional Appears: Well, Non-toxic, No Acute Distress - Extremities Exam Additional comments: VASC: Right DP and PT pulses palpable 2/4. Left DP and PT pulses nonpalpable secondary to edema. CFT <3 seconds to all digits right foot and approx 3 sec to all digits on the left. Temperature gradient warm to cool from proximal to distal with mild increase in temperature on the left lateral foot, nonpitting edema and erythema extending on the left lateral foot appears to be resolving DERM: LLE= Surgical site appears well coapted with no dehiscence, jaida-incision area appears macerated laterally with hyperpigmented skin changes on the proximal medial aspect of the incision site, no purulence, faint malodor, edema and erythema appears same as 1 day s/p amputation - no improvement is noted since then; Ulceration noted to medial aspect of 1st met head measuring approximately 0.5 x 0.5 x 0.1 cm - noted to have a mixed granular/necrotic base and hyperkeratotic rim; serosanguinous drainage present; no periwound erythema; no purulence; no fluctuance; no undermining; no tunneling. RLE=WNL NEURO: Light touch and protective sensation moderately diminished b/l. ORTHO: No pain on palpation left medial 1st met head ulceration. no pain on palpation of the surgical site, Muscle strength 5/5 for all dorisflexors, plantarflexors, inverters, and everters b/l. - Neurological Exam Neurological Exam: Alert, Awake, Oriented x3 - Psychiatric Exam Psychiatric exam: Normal Affect, Normal Mood Assessment and Plan - Assessment and Plan (Free Text) Assessment: 62 year old male 4 days s/p left partial 5th ray resection Plan: Patient seen and evaluated Discussed with attending, Dr. Jauregui Afebrile, WBC 8.0 Pre-op left foot XR: No definitive cortical changes however OM cannot be excluded Pre-op LLE MRI ordered - Suggestive of 5th digit OM Pre-op Left foot WCx: MRSA Bilateral arterial duplex - Normal MYRON/PVR; possible left pedal occlusive disease Vascular consulted - recs appreciated - Agrees with digital amputation Dressing changed using 1/4 inch iodoform packing, betadine, maxorb, DSD L foot Intra-op WCx: S. AUREUS Path report: pending Continue IV abx; f/u recs Patient is able to weight bear to the heel in a surgical shoe Podiatry will continue to follow patient while in-house Follow up with Dr. Jauregui as an out-patient up-on discharge from the hospital for further wound care <Jian Jauregui - Last Filed: 12/13/17 10:42> Objective - Vital Signs/Intake and Output Vital Signs (last 24 hours): Temp Pulse Resp BP Pulse Ox 98.2 F 61 20 144/74 99 12/13/17 08:54 12/13/17 10:00 12/13/17 08:54 12/13/17 10:00 12/13/17 08:54 Intake and Output: 12/13/17 12/13/17 06:59 18:59 Intake Total 360 Output Total 700 Balance -340 - Medications Medications: Current Medications Acetaminophen (Tylenol 325mg Tab) 650 mg PO Q6H PRN PRN Reason: Pain, Mild (1-3) Last Admin: 12/12/17 12:08 Dose: 650 mg Amlodipine Besylate (Norvasc) 10 mg PO DAILY [facility] Last Admin: 12/13/17 09:58 Dose: 10 mg Ascorbic Acid (Vitamin C 500 Mg Tab) 500 mg PO DAILY [facility] Last Admin: 12/13/17 10:00 Dose: 500 mg Docusate Sodium (Colace) 100 mg PO BID [facility] Last Admin: 12/13/17 09:57 Dose: 100 mg Famotidine (Pepcid) 20 mg PO 1000,2200 [facility] Last Admin: 12/13/17 09:59 Dose: 20 mg Heparin Sodium (Porcine) (Heparin) 5,000 units SC Q8 [facility] PRN Reason: Protocol Last Admin: 12/13/17 05:36 Dose: 5,000 units Hydralazine HCl (Apresoline) 10 mg PO QID PRN PRN Reason: for sbp>170 Ceftaroline Fosamil 600 mg/ (Sodium Chloride) 100 mls @ 100 mls/hr IVPB Q12 [facility] PRN Reason: Protocol Stop: 12/14/17 17:01 Last Admin: 12/13/17 09:56 Dose: 100 mls/hr Insulin Human Lispro (Humalog Low) 0 units SC ACHS [facility] PRN Reason: Protocol Last Admin: 12/13/17 09:58 Dose: Not Given Lisinopril (Zestril) 20 mg PO DAILY [facility] Last Admin: 12/13/17 10:00 Dose: 20 mg Metformin HCl (Glucophage) 500 mg PO BID [facility] Last Admin: 12/13/17 09:58 Dose: 500 mg Mupirocin (Bactroban Ointment) 0 gm TOP BID [facility] Last Admin: 12/09/17 09:41 Dose: Not Given Thiamine HCl (Vitamin B1 Tab) 100 mg PO DAILY [facility] Last Admin: 12/13/17 10:00 Dose: Not Given - Labs Labs: 12/13/17 07:30 12/13/17 07:30 PT 13.0 SECONDS (9.4-12.5) H 12/09/17 08:20 INR 1.13 (0.93-1.08) H 12/09/17 08:20 APTT 29.6 Seconds (25.1-36.5) 12/09/17 08:20 Assessment and Plan - Assessment and Plan (Free Text) Plan: Discussed case with the resident. Advised reiteration of needing to control sugar levels better and get control of the diabetes. since no drainage or other signs of infection will monitor closely. Discussed possibility of the incision not healing as skin was in poor shape.
--- NOTE | 2017-12-13 12:36 | PN ---
DATE: 12/13/2017 LOCATION: The patient in room 578, bed 2. REASON FOR CONSULTATION AND FOLLOWUP: Preop evaluation and postop followup for a gangrene of the small toe of the left foot, cellulitis, diabetes, hypertension, hyperlipidemia. SUBJECTIVE: From cardiac point of view, the patient denies any chest pain, shortness of breath, palpitation. The patient is lying comfortably in bed without any cardiac symptoms. PHYSICAL EXAMINATION: VITAL SIGNS: Blood pressure is 144/71, respirations 20, pulse 61, temperature 98.2. HEENT: Head is normocephalic. Eyes: Pupils normal. Conjunctivae slightly pale. NECK: JVP low. Carotids equal. THORAX: AP diameter normal. LUNGS: Clear. CARDIOVASCULAR: S1 and S2. ABDOMEN: Soft. No tenderness. No organomegaly. EXTREMITIES: The patient had dressing of the left foot where he had amputation of the fifth toe of the left foot. LABORATORY DATA: WBC 8, hemoglobin 11, hematocrit 32.2, platelet 274. Sodium 137, potassium 4.5, BUN 19, creatinine 1.3, sugar 212. 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 Echocardiogram on 12/07/2017 showed ejection fraction 60-65%, trace aortic regurgitation, trace mitral regurgitation, mild tricuspid regurgitation. Right ventricular systolic pressure 39 mmHg. RECOMMENDATION: The patient is on amlodipine 10 mg daily, lisinopril 20 mg daily, thiamine 100 mg daily, ceftaroline 600 mg IV every 12 hours, Pepcid 20 mg b.i.d., insulin, metformin 500 b.i.d. The patient was offered IV Lexiscan stress test, but the patient refused. We will sign off from the case now and if needed, please reconsult. We will be glad to see him again. Arslan Hearn MD
--- NOTE | 2017-12-13 16:21 | CP.PCM.DIS ---
<Agustina Webster - Last Filed: 12/13/17 16:38> Provider - Provider Date of Admission: 12/04/17 15:35 Attending physician: Arslan Bedoya MD Primary care physician: NO PRIMARY CARE PROVIDER Consults: ID: Gamal Podiatry: Juventino IR: Guero Cardiology: [place] Time Spent in preparation of Discharge (in minutes): 35 Hospital Course - Lab Results Lab Results: Micro Results 12/09/17 12:35 Other: Please Indicate Gram Stain - Final 12/09/17 12:35 Other: Please Indicate Wound Culture - Final Staphylococcus Aureus 12/04/17 16:40 Foot - Left Gram Stain - Final 12/04/17 16:40 Foot - Left Wound Culture - Final Methicillin Resistant S Aureus Most Recent Lab Values WBC 8.0 10^3/ul (4.5-11.0) 12/13/17 07:30 RBC 3.50 10^6/uL (3.5-6.1) 12/13/17 07:30 Hgb 11.0 g/dL (14.0-18.0) L 12/13/17 07:30 Hct 32.2 % (42.0-52.0) L 12/13/17 07:30 MCV 92.0 fl (80.0-105.0) 12/13/17 07:30 MCH 31.4 pg (25.0-35.0) 12/13/17 07:30 MCHC 34.2 g/dl (31.0-37.0) 12/13/17 07:30 RDW 12.3 % (11.5-14.5) 12/13/17 07:30 Plt Count 274 10^3/uL (120.0-450.0) 12/13/17 07:30 MPV 9.2 fl (7.0-11.0) 12/13/17 07:30 Gran % 68.3 % (50.0-68.0) H 12/09/17 07:00 Lymph % (Auto) 22.0 % (22.0-35.0) 12/09/17 07:00 [place] % (Auto) 8.0 % (1.0-6.0) H 12/09/17 07:00 Eos % (Auto) 1.4 % (1.5-5.0) L 12/09/17 07:00 Baso % (Auto) 0.3 % (0.0-3.0) 12/09/17 07:00 Gran # 6.26 (1.4-6.5) 12/09/17 07:00 Lymph # (Auto) 2.0 (1.2-3.4) 12/09/17 07:00 [place] # (Auto) 0.7 (0.1-0.6) H 12/09/17 07:00 Eos # (Auto) 0.1 (0.0-0.7) 12/09/17 07:00 Baso # (Auto) 0.03 K/mm3 (0.0-2.0) 12/09/17 07:00 ESR 78 mm/hr (0.00-15.0) H 12/04/17 13:13 PT 13.0 SECONDS (9.4-12.5) H 12/09/17 08:20 INR 1.13 (0.93-1.08) H 12/09/17 08:20 APTT 29.6 Seconds (25.1-36.5) 12/09/17 08:20 pO2 31 mm/Hg (30-55) 12/04/17 16:24 VBG pH 7.35 (7.32-7.43) 12/04/17 16:24 VBG pCO2 50.0 (40-60) 12/04/17 16:24 VBG HCO3 27.6 mmol/l (21-28) 12/04/17 16:24 VBG Total CO2 29.1 mmol.L (22-28) H 12/04/17 16:24 VBG O2 Sat (Calc) 65.3 % (40-65) H 12/04/17 16:24 VBG Base Excess 1.2 mmol/L (0.0-2.0) 12/04/17 16:24 VBG Potassium 4.6 mmol/L (3.6-5.2) 12/04/17 16:24 Sodium 134.0 mmol/L (132-148) 12/04/17 16:24 Chloride 102.0 mmol/L (98-107) 12/04/17 16:24 Glucose 203 mg/dl (75-110) H 12/04/17 16:24 Lactate 1.2 mmol/L (0.7-2.1) 12/04/17 16:24 FiO2 21.0 % 12/04/17 16:24 Sodium 137 mmol/L (132-148) 12/13/17 07:30 Potassium 4.5 mmol/L (3.6-5.0) 12/13/17 07:30 Chloride 101 mmol/L (98-107) 12/13/17 07:30 Carbon Dioxide 27 mmol/L (21-33) 12/13/17 07:30 Anion Gap 14 (10-20) 12/13/17 07:30 BUN 19 mg/dL (7-21) 12/13/17 07:30 Creatinine 1.3 mg/dl (0.8-1.5) 12/13/17 07:30 Est GFR ( Amer) > 60 12/13/17 07:30 Est GFR (Non-Af Amer) 56 12/13/17 07:30 POC Glucose (mg/dL) 129 mg/dL (65-110) H 12/13/17 15:59 Random Glucose 164 mg/dL (70-110) H 12/13/17 07:30 Hemoglobin A1c 10.2 % (4.2-6.5) H 12/05/17 08:13 Calcium 8.7 mg/dL (8.4-10.5) 12/13/17 07:30 Phosphorus 4.1 mg/dL (2.5-4.5) 12/09/17 07:00 Magnesium 2.1 mg/dL (1.7-2.2) 12/09/17 07:00 Iron 19 ug/dL (45-180) L 12/04/17 16:00 TIBC 222 ug/dL (261-462) L 12/04/17 16:00 % Saturation 9 % (20-55) L 12/04/17 16:00 Transferrin 156.88 mg/dL (206-381) L 12/04/17 16:00 Ferritin 247.0 ng/mL 12/04/17 16:00 Total Bilirubin 0.5 mg/dL (0.2-1.3) 12/09/17 07:00 AST 22 U/L (17-59) 12/09/17 07:00 ALT 34 U/L (7-56) 12/09/17 07:00 Alkaline Phosphatase 82 U/L (38-126) 12/09/17 07:00 Troponin I < 0.01 ng/mL 12/04/17 13:13 C-React Prot High Sens > 15.00 mg/L (1.00-3.00) H 12/04/17 13:13 Total Protein 6.6 g/dL (5.8-8.3) 12/09/17 07:00 Albumin 3.5 g/dL (3.0-4.8) 12/09/17 07:00 Globulin 3.1 gm/dL 12/09/17 07:00 Albumin/Globulin Ratio 1.1 (1.1-1.8) 12/09/17 07:00 Triglycerides 61 mg/dL (35-160) 12/05/17 07:30 Cholesterol 121 mg/dL (130-200) L 12/05/17 07:30 LDL Cholesterol Direct 68 mg/dL (0-129) 12/05/17 07:30 HDL Cholesterol 34 mg/dL (29-60) 12/05/17 07:30 Procalcitonin < 0.05 NG/ML (0.19-0.49) L 12/04/17 16:00 TSH 3rd Generation 3.08 mIU/mL (0.46-4.68) 12/09/17 07:00 Venous Blood Potassium 4.6 mmol/L (3.6-5.2) 12/04/17 16:24 Urine Color Yellow (YELLOW) 12/04/17 14:30 Urine Appearance Clear (CLEAR) 12/04/17 14:30 Urine pH 6.0 (4.7-8.0) 12/04/17 14:30 Ur Specific [place] 1.025 (1.005-1.035) 12/04/17 14:30 Urine Protein 100 mg/dL (<30 mg/dL) H 12/04/17 14:30 Urine Glucose (UA) 250 mg/dL (NEGATIVE) H 12/04/17 14:30 Urine Ketones 15 mg/dL (NEGATIVE) H 12/04/17 14:30 Urine Blood Negative (NEGATIVE) 12/04/17 14:30 Urine Nitrate Negative (NEGATIVE) 12/04/17 14:30 Urine Bilirubin Negative (NEGATIVE) 12/04/17 14:30 Urine Urobilinogen 2.0 E.U./dL (<1 E.U./dL) H 12/04/17 14:30 Ur Leukocyte Esterase Negative [place]/uL (NEGATIVE) 12/04/17 14:30 Urine RBC 0 - 2 /hpf (0-2) 12/04/17 14:30 Urine WBC 1 - 3 /hpf (0-6) 12/04/17 14:30 Ur Epithelial Cells 1 - 3 /hpf (0-5) 12/04/17 14:30 Urine Bacteria Neg (NEG) 12/04/17 14:30 HIV 1&2 Ag/Ab, 4th Gen Nonreactive (Nonreactive) 12/06/17 06:45 - Hospital Course Hospital Course: History of Present Illness: Patient is a 62 yo male with no PMHx not on any home meds presents with 2 week history of L foot swelling and change in color. As per patient he did not have any trauma/inciting event. He reports he started to notice his left fifth toe become red then gradually noticed the color change to darker within 2 weeks. He denied any pain and reports decreased sensation in his toes. He reports the Left fifth toe nail fell off and he took off "hard skin" from his foot. He denied any pain on ambulation/fever/chills. Patient was seen by PMD Dr. Jauregui for the first time today and was sent in to [facility]. On ROS denied headache, dizziness, chest pain, palpitations, SOB, cough, abd pain, nausea, vomiting, bowel/bladder complaints, pain in his legs b/l. He did admit to numbness and some mild tingling in his feet b/l and nocturia. Hospital Course: Patient was admitted to Med/surg. Patient was started on Vancomycin and Zosyn. Left foot xray showed No acute fracture, mild diffuse circumferential soft tissue swelling nonspecific, no definitive cortical destructive changes however unable to r/o OM. Lower extremity dopplers were negative for DVT. Left extremity arterial studies showed Normal MYRON/PVR; possible left pedal occlusive disease. MRI was done and was suggestive of osteomyelitis. Initial wound cultures were positive of MRSA. Antibiotics were changes to IV Teflaro. Cardiology was consulted for pre-operative risk stratification. Patient went to the OR with podiatry for 5th ray resection. Intraop wound cultures is positive for S Aureus. Pathology is still pending at this time. Upon discussion with ID and Podiatry, patient will need to continue antibiotics outpatient for at least 4 weeks HgA1C was noted to be 10.2. Patient was seen by certified diabetes educator. Initially patient was hesitant about starting insulin. He was started on Metformin. Patient later receptive to starting insulin therapy. Patient advised to check his blood sugar twice a day and to keep a daily log of his numbers. Patient was evaluated by PT who recommended home for disposition. Patient is able to weight bear to the heel in a surgical shoe. On day of discharge patient was doing well , denies any complaints. Patient was shown how to inject insulin prior to discharge home. Patient to establish care at [facility] within 1 week. He will need weekly CBC and CMP while taking PO Zyvox. Discharge Medications: Zyvox 600mg PO Q12h x 4 weeks Thiamine 100mg PO daily Vitamin C 500mg PO daily Metformin 500mg PO BID Levemir 8 units HS Norvasc 10mg PO daily Lisinopril 20mg PO daily Discharge Diagnosis: Osteomyelitis of left 5th digit, s/p resection Uncontrolled Diabetes Mellitus Hypertension Discharge Exam - Additional Findings Additional findings: - Constitutional Appears: Well, No Acute Distress - Head Exam Head Exam: ATRAUMATIC, NORMAL INSPECTION, NORMOCEPHALIC - Eye Exam Eye Exam: EOMI, Normal appearance Pupil Exam: NORMAL ACCOMODATION - ENT Exam ENT Exam: Mucous Membranes Moist - Neck Exam Neck Exam: Full ROM - Respiratory Exam Respiratory Exam: Clear to Ausculation Bilateral, NORMAL BREATHING PATTERN. absent: Rales, Rhonchi, Wheezes - Cardiovascular Exam Cardiovascular Exam: REGULAR RHYTHM, +S1, +S2 - GI/Abdominal Exam GI & Abdominal Exam: Soft, Normal Bowel Sounds. absent: Guarding, Rigid, Tenderness - Extremities Exam Additional comments: Dressing intact, +pedal pulses - Back Exam Back Exam: NORMAL INSPECTION - Neurological Exam Neurological Exam: Alert, Awake, Oriented x3 - Psychiatric Exam Psychiatric exam: Normal Affect, Normal Mood - Skin Skin Exam: Dry, Normal Color, Warm Discharge Plan - Discharge Medications Prescriptions: amLODIPine [Norvasc] 10 mg PO DAILY #30 tab Ascorbic Acid [Vitamin C 500 mg Tab] 500 mg PO DAILY #30 tab Insulin Detemir [Levemir] 8 unit SC HS #1 vial Linezolid [Zyvox] 600 mg PO Q12H #56 tab Lisinopril [Zestril] 20 mg PO DAILY #30 tab metFORMIN [glucOPHAGE] 500 mg PO BID #60 tab Thiamine [Vitamin B1 Tab] 100 mg PO DAILY #30 tab - Follow Up Plan Condition: IMPROVED Disposition: HOME/ ROUTINE Instructions: Type 2 Diabetes, Insulin Injection, MRSA (DC), Low Blood Sugar, Adult (DC), Surgical Wound (DC), Wound Care (DC), Hyperglycemia, Adult (DC), Cellulitis (Skin Infection), Adult (DC) Additional Instructions: 1. Patient is clear for discharge home 2. Please continue antibiotics as prescribed, you will need weekly CBC and CMPs 3. Please establish care at [facility], will need to follow up within 1 week 4. Will also need to follow up with podiatry outpatient within 1 week 5. Please check blood sugars twice a day, and keep a daily log of your numbers 6. If having worsening symptoms, return to nearest ER Referrals: PCP,NO [Primary Care Provider] - <Arslan Bedoya - Last Filed: 12/14/17 13:45> Provider - Provider Date of Admission: 12/04/17 15:35 Attending physician: Arslan Bedoya MD Primary care physician: NO PRIMARY CARE PROVIDER Hospital Course - Lab Results Lab Results: Micro Results 12/09/17 12:35 Other: Please Indicate Gram Stain - Final 12/09/17 12:35 Other: Please Indicate Wound Culture - Final Staphylococcus Aureus 12/04/17 16:40 Foot - Left Gram Stain - Final 12/04/17 16:40 Foot - Left Wound Culture - Final Methicillin Resistant S Aureus Most Recent Lab Values WBC 8.6 10^3/ul (4.5-11.0) 12/14/17 07:45 RBC 3.63 10^6/uL (3.5-6.1) 12/14/17 07:45 Hgb 11.6 g/dL (14.0-18.0) L 12/14/17 07:45 Hct 33.5 % (42.0-52.0) L 12/14/17 07:45 MCV 92.3 fl (80.0-105.0) 12/14/17 07:45 MCH 32.0 pg (25.0-35.0) 12/14/17 07:45 MCHC 34.6 g/dl (31.0-37.0) 12/14/17 07:45 RDW 12.3 % (11.5-14.5) 12/14/17 07:45 Plt Count 271 10^3/uL (120.0-450.0) 12/14/17 07:45 MPV 8.9 fl (7.0-11.0) 12/14/17 07:45 Gran % 68.3 % (50.0-68.0) H 12/09/17 07:00 Lymph % (Auto) 22.0 % (22.0-35.0) 12/09/17 07:00 [place] % (Auto) 8.0 % (1.0-6.0) H 12/09/17 07:00 Eos % (Auto) 1.4 % (1.5-5.0) L 12/09/17 07:00 Baso % (Auto) 0.3 % (0.0-3.0) 12/09/17 07:00 Gran # 6.26 (1.4-6.5) 12/09/17 07:00 Lymph # (Auto) 2.0 (1.2-3.4) 12/09/17 07:00 [place] # (Auto) 0.7 (0.1-0.6) H 12/09/17 07:00 Eos # (Auto) 0.1 (0.0-0.7) 12/09/17 07:00 Baso # (Auto) 0.03 K/mm3 (0.0-2.0) 12/09/17 07:00 ESR 78 mm/hr (0.00-15.0) H 12/04/17 13:13 PT 13.0 SECONDS (9.4-12.5) H 12/09/17 08:20 INR 1.13 (0.93-1.08) H 12/09/17 08:20 APTT 29.6 Seconds (25.1-36.5) 12/09/17 08:20 pO2 31 mm/Hg (30-55) 12/04/17 16:24 VBG pH 7.35 (7.32-7.43) 12/04/17 16:24 VBG pCO2 50.0 (40-60) 12/04/17 16:24 VBG HCO3 27.6 mmol/l (21-28) 12/04/17 16:24 VBG Total CO2 29.1 mmol.L (22-28) H 12/04/17 16:24 VBG O2 Sat (Calc) 65.3 % (40-65) H 12/04/17 16:24 VBG Base Excess 1.2 mmol/L (0.0-2.0) 12/04/17 16:24 VBG Potassium 4.6 mmol/L (3.6-5.2) 12/04/17 16:24 Sodium 134.0 mmol/L (132-148) 12/04/17 16:24 Chloride 102.0 mmol/L (98-107) 12/04/17 16:24 Glucose 203 mg/dl (75-110) H 12/04/17 16:24 Lactate 1.2 mmol/L (0.7-2.1) 12/04/17 16:24 FiO2 21.0 % 12/04/17 16:24 Sodium 137 mmol/L (132-148) 12/14/17 07:45 Potassium 4.4 mmol/L (3.6-5.0) 12/14/17 07:45 Chloride 102 mmol/L (98-107) 12/14/17 07:45 Carbon Dioxide 26 mmol/L (21-33) 12/14/17 07:45 Anion Gap 14 (10-20) 12/14/17 07:45 BUN 21 mg/dL (7-21) 12/14/17 07:45 Creatinine 1.3 mg/dl (0.8-1.5) 12/14/17 07:45 Est GFR ( Amer) > 60 12/14/17 07:45 Est GFR (Non-Af Amer) 56 12/14/17 07:45 POC Glucose (mg/dL) 131 mg/dL (65-110) H 12/14/17 06:48 Random Glucose 144 mg/dL (70-110) H 12/14/17 07:45 Hemoglobin A1c 10.2 % (4.2-6.5) H 12/05/17 08:13 Calcium 8.8 mg/dL (8.4-10.5) 12/14/17 07:45 Phosphorus 4.1 mg/dL (2.5-4.5) 12/09/17 07:00 Magnesium 2.1 mg/dL (1.7-2.2) 12/09/17 07:00 Iron 19 ug/dL (45-180) L 12/04/17 16:00 TIBC 222 ug/dL (261-462) L 12/04/17 16:00 % Saturation 9 % (20-55) L 12/04/17 16:00 Transferrin 156.88 mg/dL (206-381) L 12/04/17 16:00 Ferritin 247.0 ng/mL 12/04/17 16:00 Total Bilirubin 0.5 mg/dL (0.2-1.3) 12/09/17 07:00 AST 22 U/L (17-59) 12/09/17 07:00 ALT 34 U/L (7-56) 12/09/17 07:00 Alkaline Phosphatase 82 U/L (38-126) 12/09/17 07:00 Troponin I < 0.01 ng/mL 12/04/17 13:13 C-React Prot High Sens > 15.00 mg/L (1.00-3.00) H 12/04/17 13:13 Total Protein 6.6 g/dL (5.8-8.3) 12/09/17 07:00 Albumin 3.5 g/dL (3.0-4.8) 12/09/17 07:00 Globulin 3.1 gm/dL 12/09/17 07:00 Albumin/Globulin Ratio 1.1 (1.1-1.8) 12/09/17 07:00 Triglycerides 61 mg/dL (35-160) 12/05/17 07:30 Cholesterol 121 mg/dL (130-200) L 12/05/17 07:30 LDL Cholesterol Direct 68 mg/dL (0-129) 12/05/17 07:30 HDL Cholesterol 34 mg/dL (29-60) 12/05/17 07:30 Procalcitonin < 0.05 NG/ML (0.19-0.49) L 12/04/17 16:00 TSH 3rd Generation 3.08 mIU/mL (0.46-4.68) 12/09/17 07:00 Venous Blood Potassium 4.6 mmol/L (3.6-5.2) 12/04/17 16:24 Urine Color Yellow (YELLOW) 12/04/17 14:30 Urine Appearance Clear (CLEAR) 12/04/17 14:30 Urine pH 6.0 (4.7-8.0) 12/04/17 14:30 Ur Specific [place] 1.025 (1.005-1.035) 12/04/17 14:30 Urine Protein 100 mg/dL (<30 mg/dL) H 12/04/17 14:30 Urine Glucose (UA) 250 mg/dL (NEGATIVE) H 12/04/17 14:30 Urine Ketones 15 mg/dL (NEGATIVE) H 12/04/17 14:30 Urine Blood Negative (NEGATIVE) 12/04/17 14:30 Urine Nitrate Negative (NEGATIVE) 12/04/17 14:30 Urine Bilirubin Negative (NEGATIVE) 12/04/17 14:30 Urine Urobilinogen 2.0 E.U./dL (<1 E.U./dL) H 12/04/17 14:30 Ur Leukocyte Esterase Negative [place]/uL (NEGATIVE) 12/04/17 14:30 Urine RBC 0 - 2 /hpf (0-2) 12/04/17 14:30 Urine WBC 1 - 3 /hpf (0-6) 12/04/17 14:30 Ur Epithelial Cells 1 - 3 /hpf (0-5) 12/04/17 14:30 Urine Bacteria Neg (NEG) 12/04/17 14:30 HIV 1&2 Ag/Ab, 4th Gen Nonreactive (Nonreactive) 12/06/17 06:45 Attending/Attestation - Attestation I have personally seen and examined this patient.: Yes I have fully participated in the care of the patient.: Yes I have reviewed all pertinent clinical information, including history, physical exam and plan: Yes Notes (Text): 12/14/17 13:39 Medical record note made by the resident after discussion with my direction and input after the patient was personally seen and examined by me. I have reviewed the chart and agree that the record accurately reflects by personal performance of the history, physical exam, data review, and medical decision-making, in the course for the patient. I have also personally directed the plan of care. 62 year old male with PMH of DM, non compliance with medication was admitted with diabetic foot ulceration with infection/dry gangrene of little toe and cellulitis on leg.MRI was done suggestive of osteomyelitis. Initial WCx was positive for MRSA.Dopplers studies were reviewed and IR/vascular evaluation was appreciated.Patient was evaluated by Podiatry and underwent 5th ray resection POD #3. Intraop wound culture is positive for S Aureus. Patient will need antibiotics for total 4 weeks, case was discussed with ID and patient will be discharged on Po Linezolide. A1c is elevated at 10.2. He is agreeable for insulin now.He will started on low dose of Levemir in addition to Metformin.[facility]He has been advised to check blood sugars and keep record for his clinic appointment, Issue of compliance with medication , follow up with Podiatry and PCP was discussed in detail.
[2017-12-13] MEDS: Insulin Lispro (humaLOG) MIX 75/25(10 ml) SC SCH (17:43)
--- NOTE | 2017-12-13 19:29 | CP.PCM.PN ---
Subjective - Date & Time of Evaluation Date of Evaluation: 12/13/17 Time of Evaluation: 12:45 - Subjective Subjective: No fevers, not in distress, less pain in the foot. Objective - Vital Signs/Intake and Output Vital Signs (last 24 hours): Temp Pulse Resp BP Pulse Ox 98.2 F 61 20 144/74 99 12/13/17 08:54 12/13/17 10:00 12/13/17 08:54 12/13/17 10:00 12/13/17 08:54 Intake and Output: 12/13/17 12/13/17 06:59 18:59 Intake Total 360 Output Total 700 Balance -340 - Medications Medications: Current Medications Acetaminophen (Tylenol 325mg Tab) 650 mg PO Q6H PRN PRN Reason: Pain, Mild (1-3) Last Admin: 12/12/17 12:08 Dose: 650 mg Amlodipine Besylate (Norvasc) 10 mg PO DAILY [facility] Last Admin: 12/13/17 09:58 Dose: 10 mg Ascorbic Acid (Vitamin C 500 Mg Tab) 500 mg PO DAILY [facility] Last Admin: 12/13/17 10:00 Dose: 500 mg Docusate Sodium (Colace) 100 mg PO BID [facility] Last Admin: 12/13/17 09:57 Dose: 100 mg Famotidine (Pepcid) 20 mg PO 1000,2200 [facility] Last Admin: 12/13/17 09:59 Dose: 20 mg Heparin Sodium (Porcine) (Heparin) 5,000 units SC Q8 [facility] PRN Reason: Protocol Last Admin: 12/13/17 05:36 Dose: 5,000 units Hydralazine HCl (Apresoline) 10 mg PO QID PRN PRN Reason: for sbp>170 Ceftaroline Fosamil 600 mg/ (Sodium Chloride) 100 mls @ 100 mls/hr IVPB Q12 [facility] PRN Reason: Protocol Stop: 12/14/17 17:01 Last Admin: 12/13/17 09:56 Dose: 100 mls/hr Insulin Human Lispro (Humalog Low) 0 units SC ACHS [facility] PRN Reason: Protocol Last Admin: 12/13/17 09:58 Dose: Not Given Lisinopril (Zestril) 20 mg PO DAILY [facility] Last Admin: 12/13/17 10:00 Dose: 20 mg Metformin HCl (Glucophage) 500 mg PO BID [facility] Last Admin: 12/13/17 09:58 Dose: 500 mg Mupirocin (Bactroban Ointment) 0 gm TOP BID [facility] Last Admin: 12/09/17 09:41 Dose: Not Given Thiamine HCl (Vitamin B1 Tab) 100 mg PO DAILY [facility] Last Admin: 12/13/17 10:00 Dose: Not Given - Labs Labs: 12/13/17 07:30 12/13/17 07:30 PT 13.0 SECONDS (9.4-12.5) H 12/09/17 08:20 INR 1.13 (0.93-1.08) H 12/09/17 08:20 APTT 29.6 Seconds (25.1-36.5) 12/09/17 08:20 - Constitutional Appears: Chronically Ill - Head Exam Head Exam: NORMAL INSPECTION - Respiratory Exam Respiratory Exam: Decreased Breath Sounds - Cardiovascular Exam Cardiovascular Exam: +S1, +S2 - GI/Abdominal Exam GI & Abdominal Exam: Soft. 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
[2017-12-13] MEDS ORDERED: Insulin Detemir 100 units/ml Vial (Levemir) SC SCH (22:00)
[2017-12-14 08:06] LABS: HEMOGLOBIN 11.6 g/dL (14.0-18.0); MEAN CELL VOLUME 92.3 fl (80.0-105.0); MEAN CORPUSCULAR HGB CONC 34.6 g/dl (31.0-37.0); MEAN PLATELET VOLUME 8.9 fl (7.0-11.0); RBC 3.63 10^6/uL (3.5-6.1); RED CELL DISTRIBUTION WIDTH 12.3 % (11.5-14.5); WHITE BLOOD COUNT 8.6 10^3/ul (4.5-11.0)
[2017-12-14 08:19] LABS: BLOOD UREA NITROGEN 21 mg/dL (7-21); CALCIUM 8.8 mg/dL (8.4-10.5); GFR AFRICAN-AMERICAN > 60; GFR NON-AFRICAN AMERICAN 56
[2017-12-14] MEDS: Insulin Lispro (humaLOG) MIX 75/25(10 ml) SC SCH (10:23)
[2017-12-14] MEDS: Insulin Lispro (humaLOG) LOW Coverage SC SCH ×2 (10:23→11:40)
[2017-12-14] MEDS: Ceftaroline 600 MG in Sodium Chloride 0.9% 100 ML IVPB SCH (10:24)
--- NOTE | 2017-12-14 11:31 | CP.PCM.DIS ---
Provider - Provider Date of Admission: 12/04/17 15:35 Attending physician: Arslan Bedoya MD Primary care physician: NO PRIMARY CARE PROVIDER Time Spent in preparation of Discharge (in minutes): 32 Hospital Course - Lab Results Lab Results: Micro Results 12/09/17 12:35 Other: Please Indicate Gram Stain - Final 12/09/17 12:35 Other: Please Indicate Wound Culture - Final Staphylococcus Aureus 12/04/17 16:40 Foot - Left Gram Stain - Final 12/04/17 16:40 Foot - Left Wound Culture - Final Methicillin Resistant S Aureus Most Recent Lab Values WBC 8.6 10^3/ul (4.5-11.0) 12/14/17 07:45 RBC 3.63 10^6/uL (3.5-6.1) 12/14/17 07:45 Hgb 11.6 g/dL (14.0-18.0) L 12/14/17 07:45 Hct 33.5 % (42.0-52.0) L 12/14/17 07:45 MCV 92.3 fl (80.0-105.0) 12/14/17 07:45 MCH 32.0 pg (25.0-35.0) 12/14/17 07:45 MCHC 34.6 g/dl (31.0-37.0) 12/14/17 07:45 RDW 12.3 % (11.5-14.5) 12/14/17 07:45 Plt Count 271 10^3/uL (120.0-450.0) 12/14/17 07:45 MPV 8.9 fl (7.0-11.0) 12/14/17 07:45 Gran % 68.3 % (50.0-68.0) H 12/09/17 07:00 Lymph % (Auto) 22.0 % (22.0-35.0) 12/09/17 07:00 [place] % (Auto) 8.0 % (1.0-6.0) H 12/09/17 07:00 Eos % (Auto) 1.4 % (1.5-5.0) L 12/09/17 07:00 Baso % (Auto) 0.3 % (0.0-3.0) 12/09/17 07:00 Gran # 6.26 (1.4-6.5) 12/09/17 07:00 Lymph # (Auto) 2.0 (1.2-3.4) 12/09/17 07:00 [place] # (Auto) 0.7 (0.1-0.6) H 12/09/17 07:00 Eos # (Auto) 0.1 (0.0-0.7) 12/09/17 07:00 Baso # (Auto) 0.03 K/mm3 (0.0-2.0) 12/09/17 07:00 ESR 78 mm/hr (0.00-15.0) H 12/04/17 13:13 PT 13.0 SECONDS (9.4-12.5) H 12/09/17 08:20 INR 1.13 (0.93-1.08) H 12/09/17 08:20 APTT 29.6 Seconds (25.1-36.5) 12/09/17 08:20 pO2 31 mm/Hg (30-55) 12/04/17 16:24 VBG pH 7.35 (7.32-7.43) 12/04/17 16:24 VBG pCO2 50.0 (40-60) 12/04/17 16:24 VBG HCO3 27.6 mmol/l (21-28) 12/04/17 16:24 VBG Total CO2 29.1 mmol.L (22-28) H 12/04/17 16:24 VBG O2 Sat (Calc) 65.3 % (40-65) H 12/04/17 16:24 VBG Base Excess 1.2 mmol/L (0.0-2.0) 12/04/17 16:24 VBG Potassium 4.6 mmol/L (3.6-5.2) 12/04/17 16:24 Sodium 134.0 mmol/L (132-148) 12/04/17 16:24 Chloride 102.0 mmol/L (98-107) 12/04/17 16:24 Glucose 203 mg/dl (75-110) H 12/04/17 16:24 Lactate 1.2 mmol/L (0.7-2.1) 12/04/17 16:24 FiO2 21.0 % 12/04/17 16:24 Sodium 137 mmol/L (132-148) 12/14/17 07:45 Potassium 4.4 mmol/L (3.6-5.0) 12/14/17 07:45 Chloride 102 mmol/L (98-107) 12/14/17 07:45 Carbon Dioxide 26 mmol/L (21-33) 12/14/17 07:45 Anion Gap 14 (10-20) 12/14/17 07:45 BUN 21 mg/dL (7-21) 12/14/17 07:45 Creatinine 1.3 mg/dl (0.8-1.5) 12/14/17 07:45 Est GFR ( Amer) > 60 12/14/17 07:45 Est GFR (Non-Af Amer) 56 12/14/17 07:45 POC Glucose (mg/dL) 131 mg/dL (65-110) H 12/14/17 06:48 Random Glucose 144 mg/dL (70-110) H 12/14/17 07:45 Hemoglobin A1c 10.2 % (4.2-6.5) H 12/05/17 08:13 Calcium 8.8 mg/dL (8.4-10.5) 12/14/17 07:45 Phosphorus 4.1 mg/dL (2.5-4.5) 12/09/17 07:00 Magnesium 2.1 mg/dL (1.7-2.2) 12/09/17 07:00 Iron 19 ug/dL (45-180) L 12/04/17 16:00 TIBC 222 ug/dL (261-462) L 12/04/17 16:00 % Saturation 9 % (20-55) L 12/04/17 16:00 Transferrin 156.88 mg/dL (206-381) L 12/04/17 16:00 Ferritin 247.0 ng/mL 12/04/17 16:00 Total Bilirubin 0.5 mg/dL (0.2-1.3) 12/09/17 07:00 AST 22 U/L (17-59) 12/09/17 07:00 ALT 34 U/L (7-56) 12/09/17 07:00 Alkaline Phosphatase 82 U/L (38-126) 12/09/17 07:00 Troponin I < 0.01 ng/mL 12/04/17 13:13 C-React Prot High Sens > 15.00 mg/L (1.00-3.00) H 12/04/17 13:13 Total Protein 6.6 g/dL (5.8-8.3) 12/09/17 07:00 Albumin 3.5 g/dL (3.0-4.8) 12/09/17 07:00 Globulin 3.1 gm/dL 12/09/17 07:00 Albumin/Globulin Ratio 1.1 (1.1-1.8) 12/09/17 07:00 Triglycerides 61 mg/dL (35-160) 12/05/17 07:30 Cholesterol 121 mg/dL (130-200) L 12/05/17 07:30 LDL Cholesterol Direct 68 mg/dL (0-129) 12/05/17 07:30 HDL Cholesterol 34 mg/dL (29-60) 12/05/17 07:30 Procalcitonin < 0.05 NG/ML (0.19-0.49) L 12/04/17 16:00 TSH 3rd Generation 3.08 mIU/mL (0.46-4.68) 12/09/17 07:00 Venous Blood Potassium 4.6 mmol/L (3.6-5.2) 12/04/17 16:24 Urine Color Yellow (YELLOW) 12/04/17 14:30 Urine Appearance Clear (CLEAR) 12/04/17 14:30 Urine pH 6.0 (4.7-8.0) 12/04/17 14:30 Ur Specific [place] 1.025 (1.005-1.035) 12/04/17 14:30 Urine Protein 100 mg/dL (<30 mg/dL) H 12/04/17 14:30 Urine Glucose (UA) 250 mg/dL (NEGATIVE) H 12/04/17 14:30 Urine Ketones 15 mg/dL (NEGATIVE) H 12/04/17 14:30 Urine Blood Negative (NEGATIVE) 12/04/17 14:30 Urine Nitrate Negative (NEGATIVE) 12/04/17 14:30 Urine Bilirubin Negative (NEGATIVE) 12/04/17 14:30 Urine Urobilinogen 2.0 E.U./dL (<1 E.U./dL) H 12/04/17 14:30 Ur Leukocyte Esterase Negative [place]/uL (NEGATIVE) 12/04/17 14:30 Urine RBC 0 - 2 /hpf (0-2) 12/04/17 14:30 Urine WBC 1 - 3 /hpf (0-6) 12/04/17 14:30 Ur Epithelial Cells 1 - 3 /hpf (0-5) 12/04/17 14:30 Urine Bacteria Neg (NEG) 12/04/17 14:30 HIV 1&2 Ag/Ab, 4th Gen Nonreactive (Nonreactive) 12/06/17 06:45 - Hospital Course Hospital Course: History of Present Illness: Patient is a 62 yo male with no PMHx not on any home meds presents with 2 week history of L foot swelling and change in color. As per patient he did not have any trauma/inciting event. He reports he started to notice his left fifth toe become red then gradually noticed the color change to darker within 2 weeks. He denied any pain and reports decreased sensation in his toes. He reports the Left fifth toe nail fell off and he took off "hard skin" from his foot. He denied any pain on ambulation/fever/chills. Patient was seen by PMD Dr. Jauregui for the first time today and was sent in to [facility] ED. On ROS denied headache, dizziness, chest pain, palpitations, SOB, cough, abd pain, nausea, vomiting, bowel/bladder complaints, pain in his legs b/l. He did admit to numbness and some mild tingling in his feet b/l and nocturia. Hospital Course: Patient was admitted to Med/surg. Patient was started on Vancomycin and Zosyn. Left foot xray showed No acute fracture, mild diffuse circumferential soft tissue swelling nonspecific, no definitive cortical destructive changes however unable to r/o OM. Lower extremity dopplers were negative for DVT. Left extremity arterial studies showed Normal MYRON/PVR; possible left pedal occlusive disease. MRI was done and was suggestive of osteomyelitis. Initial wound cultures were positive of MRSA. Antibiotics were changes to IV Teflaro. Cardiology was consulted for pre-operative risk stratification. Patient went to the OR with podiatry for 5th ray resection. Intraop wound cultures is positive for S Aureus. Pathology is still pending at this time. Upon discussion with ID and Podiatry, patient will need to continue antibiotics outpatient for at least 4 weeks HgA1C was noted to be 10.2. Patient was seen by in service educator. Initially patient was hesitant about starting insulin. He was started on Metformin. Patient later receptive to starting insulin therapy. Patient advised to check his blood sugar twice a day and to keep a daily log of his numbers. Patient was evaluated by PT who recommended home for disposition. Patient is able to weight bear to the heel in a surgical shoe. On day of discharge patient was doing well , denies any complaints. Patient was shown how to inject insulin prior to discharge home. Patient to establish care at [facility] within 1 week. He will need weekly CBC and CMP while taking PO Zyvox. Discharge Medications: Zyvox 600mg PO Q12h x 4 weeks Thiamine 100mg PO daily Vitamin C 500mg PO daily Metformin 500mg PO BID Levemir 8 units HS Norvasc 10mg PO daily Lisinopril 20mg PO daily Discharge Diagnosis: Osteomyelitis of left 5th digit, s/p resection Uncontrolled Diabetes Mellitus Hypertension Discharge Exam - Head Exam Head Exam: NORMAL INSPECTION Discharge Plan - Discharge Medications Prescriptions: amLODIPine [Norvasc] 10 mg PO DAILY #30 tab Ascorbic Acid [Vitamin C 500 mg Tab] 500 mg PO DAILY #30 tab Insulin Detemir [Levemir] 8 unit SC HS #1 vial Linezolid [Zyvox] 600 mg PO Q12H #56 tab Lisinopril [Zestril] 20 mg PO DAILY #30 tab metFORMIN [glucOPHAGE] 500 mg PO BID #60 tab Thiamine [Vitamin B1 Tab] 100 mg PO DAILY #30 tab - Follow Up Plan Condition: IMPROVED Disposition: HOME/ ROUTINE Instructions: Type 2 Diabetes, Insulin Injection, MRSA (DC), Low Blood Sugar, Adult (DC), Surgical Wound (DC), Wound Care (DC), Hyperglycemia, Adult (DC), Cellulitis (Skin Infection), Adult (DC) Additional Instructions: 1. Patient is clear for discharge home 2. Please continue antibiotics as prescribed, you will need weekly CBC and CMPs 3. Please establish care at [facility], will need to follow up within 1 week 4. Will also need to follow up with podiatry outpatient 5. Please check blood sugars twice a day, and keep a daily log of your numbers 6. If having worsening symptoms, return to nearest ER Referrals: PCP,NO [Primary Care Provider] -
[2017-12-14 14:04] VITALS: BP 143/70; PULSE 46; RESP 18; TEMP 98.2; O2SAT 98
--- NOTE | 2017-12-14 16:41 | CP.PCM.PN ---
Subjective - Date & Time of Evaluation Date of Evaluation: 12/14/17 Time of Evaluation: 12:45 - Subjective Subjective: No fevers, less pain in the foot, no diarrhea. Objective - Vital Signs/Intake and Output Vital Signs (last 24 hours): Temp Pulse Resp BP Pulse Ox 98 F 49 L 20 143/78 99 12/14/17 08:33 12/14/17 08:33 12/14/17 08:33 12/14/17 08:33 12/14/17 08:33 Intake and Output: 12/14/17 12/14/17 06:59 18:59 Intake Total 660 Output Total 800 Balance -140 - Medications Medications: Current Medications Acetaminophen (Tylenol 325mg Tab) 650 mg PO Q6H PRN PRN Reason: Pain, Mild (1-3) Last Admin: 12/12/17 12:08 Dose: 650 mg Amlodipine Besylate (Norvasc) 10 mg PO DAILY [facility] Last Admin: 12/13/17 09:58 Dose: 10 mg Ascorbic Acid (Vitamin C 500 Mg Tab) 500 mg PO DAILY [facility] Last Admin: 12/13/17 10:00 Dose: 500 mg Docusate Sodium (Colace) 100 mg PO BID [facility] Last Admin: 12/13/17 17:44 Dose: 100 mg Famotidine (Pepcid) 20 mg PO 1000,2200 [facility] Last Admin: 12/13/17 22:42 Dose: 20 mg Heparin Sodium (Porcine) (Heparin) 5,000 units SC Q8 [facility] PRN Reason: Protocol Last Admin: 12/14/17 05:22 Dose: 5,000 units Hydralazine HCl (Apresoline) 10 mg PO QID PRN PRN Reason: for sbp>170 Ceftaroline Fosamil 600 mg/ (Sodium Chloride) 100 mls @ 100 mls/hr IVPB Q12 [facility] PRN Reason: Protocol Stop: 12/14/17 17:01 Last Admin: 12/13/17 22:43 Dose: 100 mls/hr Insulin Human Lispro (Humalog Low) 0 units SC ACHS [facility] PRN Reason: Protocol Last Admin: 12/13/17 22:44 Dose: Not Given Insulin Lispro Protam/Lispro Human (Humalog Mix 75/25) 5 units SC BID [facility] Last Admin: 12/13/17 17:43 Dose: 5 unit Lisinopril (Zestril) 20 mg PO DAILY [facility] Last Admin: 12/13/17 10:00 Dose: 20 mg Metformin HCl (Glucophage) 500 mg PO BID [facility] Last Admin: 12/13/17 17:44 Dose: 500 mg Mupirocin (Bactroban Ointment) 0 gm TOP BID [facility] Last Admin: 12/09/17 09:41 Dose: Not Given Thiamine HCl (Vitamin B1 Tab) 100 mg PO DAILY [facility] Last Admin: 12/13/17 10:00 Dose: Not Given - Labs Labs: 12/14/17 07:45 12/14/17 07:45 PT 13.0 SECONDS (9.4-12.5) H 12/09/17 08:20 INR 1.13 (0.93-1.08) H 12/09/17 08:20 APTT 29.6 Seconds (25.1-36.5) 12/09/17 08:20 - Constitutional Appears: Non-toxic, Chronically Ill - Head Exam Head Exam: NORMAL INSPECTION - Respiratory Exam Respiratory Exam: Decreased Breath Sounds - Cardiovascular Exam Cardiovascular Exam: +S1, +S2 - GI/Abdominal Exam GI & Abdominal Exam: Soft. absent: Tenderness - Extremities Exam Additional comments: left foot with dressings in place Assessment and Plan - Assessment and Plan (Free Text) Plan: Assessment left foot 5th toe osteomyelitis with skin and skin structure infection, growing MRSA in the soft tissue and MSSA in the bone S/P partial 5th ray amputation POD #5 DM peripheral neuropathy CAD HTN Plan on Teflaro - reviewed OR pathology and it still shows osteomyelitis on the margins - will need at least 4 weeks of antibiotics (can switch to Zyvox) with weekly ESR, CRP, CBC, CMP while on antibiotics, with outpatient follow up with Podiatry
--- NOTE | 2017-12-14 18:37 | CARD ---
APPROVED REPORT EKG Measurement Heart [id number] <Conclusion> Marked sinus bradycardia Abnormal ECG
== END 2017-12-14 16:40 | disposition home or self-care (01) | DRG 549 ==
LOC: ED 12:09 → ERH 15:35 → 5RSO 17:11
PROVIDERS: ADMIT Internal Medicine; ATTEND Internal Medicine
PROC: 0QBP0ZX Excision of Left Metatarsal, Open Approach, Diagnostic (ICD-10-PCS; 2017-12-09)
PROC: 0Y6N0ZF Detachment at Left Foot, Partial 5th Ray, Open Approach (ICD-10-PCS; principal; 2017-12-09 11:00)
DX: E11.52 Type 2 diabetes mellitus with diabetic peripheral angiopathy with gangrene (principal); M86.172 Other acute osteomyelitis, left ankle and foot; E11.65 Type 2 diabetes mellitus with hyperglycemia; L03.116 Cellulitis of left lower limb; L97.529 Non-pressure chronic ulcer of other part of left foot with unspecified severity; I08.3 Combined rheumatic disorders of mitral, aortic and tricuspid valves; E11.69 Type 2 diabetes mellitus with other specified complication; I10 Essential (primary) hypertension; E11.621 Type 2 diabetes mellitus with foot ulcer; E11.42 Type 2 diabetes mellitus with diabetic polyneuropathy; B95.62 Methicillin resistant Staphylococcus aureus infection as the cause of diseases classified elsewhere; B95.61 Methicillin susceptible Staphylococcus aureus infection as the cause of diseases classified elsewhere; I25.10 Atherosclerotic heart disease of native coronary artery without angina pectoris; F17.210 Nicotine dependence, cigarettes, uncomplicated; E78.5 Hyperlipidemia, unspecified; D64.9 Anemia, unspecified; K59.00 Constipation, unspecified; Z79.4 Long term (current) use of insulin; Z91.14 Patient's other noncompliance with medication regimen

== ENCOUNTER 2018-01-06 12:53 | Inpatient (IN) | payer SELFPAY ==
[2018-01-06 12:53] VITALS: BMI 29.9
[2018-01-06 14:12] LABS: BASO # 0.02 K/mm3 (0.0-2.0); BASO % 0.3 % (0.0-3.0); EOS # 0.3 (0.0-0.7); GRAN % 63.2 % (50.0-68.0); HEMOGLOBIN 10.8 g/dL (14.0-18.0); LYMPH % 25.3 % (22.0-35.0); MEAN CELL VOLUME 90.5 fl (80.0-105.0); MEAN CORPUSCULAR HGB CONC 35.4 g/dl (31.0-37.0); MEAN PLATELET VOLUME 9.6 fl (7.0-11.0); MONO # 0.6 (0.1-0.6); MONO % 7.2 % (1.0-6.0); RBC 3.37 10^6/uL (3.5-6.1); RED CELL DISTRIBUTION WIDTH 12.5 % (11.5-14.5); WHITE BLOOD COUNT 7.9 10^3/ul (4.5-11.0)
[2018-01-06 14:22] LABS: ALB/GLOB RATIO 1.2 (1.1-1.8); ALBUMIN 3.8 g/dL (3.0-4.8); ALT/SGPT 34 U/L (7-56); AST/SGOT 22 U/L (17-59); BLOOD UREA NITROGEN 19 mg/dL (7-21); GFR AFRICAN-AMERICAN > 60; GFR NON-AFRICAN AMERICAN > 60
[2018-01-06] MEDS ORDERED: Sodium Chloride 0.45% 1,000 ML IV ONE (15:06)
[2018-01-06 15:25] LABS: INR 1.02 (0.93-1.08); PARTIAL THROMBOPLASTIN TIME 28.1 Seconds (25.1-36.5); PROTHROMBIN TIME 11.6 SECONDS (9.4-12.5)
--- NOTE | 2018-01-06 17:04 | ED PDOC ---
Arrival/HPI - General Chief Complaint: Lower Extremity Problem/Injury Time Seen by Provider: 01/06/18 12:55 Historian: Patient - History of Present Illness Narrative History of Present Illness (Text): 01/06/18 16:59 62 year old male, whose history includes diabetes with occasional compliance with medications, referred to the Emergency department by Dr. Jack presents for a CT angiogram of left lower extremity. Patient has a history of left 5th toe amputation 2 weeks ago and has completed course of antibiotics. Patient denies any fever, chills, chest pain, shortness of breath, nausea, vomiting, diarrhea, urinary symptoms, back pain, neck pain, headache, dizziness, or any other complaints. Time/Duration: < month Symptom Onset: Gradual Symptom Course: Unchanged Context: Other (referred to Emergency department by Dr. Jack) Past Medical History - Provider Review Nursing Documentation Reviewed: Yes - Infectious Disease Hx of Infectious Diseases: None - Cardiac Hx Cardiac Disorders: Yes Hx Hypertension: Yes - Pulmonary Hx Respiratory Disorders: No - Neurological Hx Neurological Disorder: Yes Other/Comment: neuropathy - HEENT Hx HEENT Disorder: No - Renal Hx Renal Disorder: No - Endocrine/Metabolic Hx Diabetes Mellitus Type 1: Yes - Hematological/Oncological Hx Blood Disorders: No - Integumentary Hx Dermatological Disorder: Yes Other/Comment: LEFT GREAT TOE DISCOLORED - Musculoskeletal/Rheumatological Hx Musculoskeletal Disorders: No - Gastrointestinal Hx Gastrointestinal Disorders: No - Genitourinary/Gynecological Hx Genitourinary Disorders: No - Psychiatric Hx Psychophysiologic Disorder: No Hx Substance Use: No - Surgical History Hx Amputation: Yes (Left fifth toe) Hx Musculoskeletal Surgery: Yes (Left fifth toe amputation) - Anesthesia Hx Anesthesia Reactions: No Hx Malignant Hyperthermia: No Family/Social History - Physician Review Nursing Documentation Reviewed: Yes Family/Social History: Unknown Family HX Smoking Status: Former Smoker Hx Alcohol Use: Yes Hx Substance Use: No Allergies/Home Meds Allergies/Adverse Reactions: Allergies No Known Allergies Allergy (Verified 01/06/18 13:06) Home Medications: Home Meds Medication Instructions Recorded Confirmed Unobtainable 01/06/18 01/06/18 Review of Systems - Physician Review All systems were reviewed & negative as marked: Yes - Review of Systems Constitutional: absent: Fevers, Night Sweats Respiratory: absent: SOB Cardiovascular: absent: Chest Pain Gastrointestinal: absent: Diarrhea, Nausea, Vomiting Genitourinary Male: absent: Dysuria Musculoskeletal: absent: Back Pain, Neck Pain Neurological: absent: Headache, Dizziness Physical Exam Vital Signs Reviewed: Yes Vital Signs Temp Pulse Pulse Resp BP Pulse Ox 01/06/18 21:50 98.3 F 80 18 170/83 H 92 L 01/06/18 19:00 98.8 F 64 94 H 20 144/80 01/06/18 13:09 98.8 F 64 20 144/80 97 Temperature: Afebrile Blood Pressure: Normal Pulse: Regular Respiratory Rate: Normal Appearance: Positive for: Well-Appearing, Non-Toxic, Comfortable Pain Distress: None Mental Status: Positive for: Alert and Oriented X 3 - Systems Exam Head: Present: Atraumatic, Normocephalic Pupils: Present: PERRL Extroacular Muscles: Present: EOMI Conjunctiva: Present: Normal Mouth: Present: Moist Mucous Membranes Neck: Present: Normal Range of Motion Respiratory/Chest: Present: Clear to Auscultation, Good Air Exchange. No: Respiratory Distress, Accessory Muscle Use Cardiovascular: Present: Regular Rate and Rhythm, Normal S1, S2. No: Murmurs Abdomen: No: Tenderness, Distention, Peritoneal Signs Back: Present: Normal Inspection Upper Extremity: Present: Normal Inspection. No: Cyanosis, Edema Lower Extremity: Present: Other (Left lower extremity: foot wrapped. Increased capillary refill time) Neurological: Present: GCS=15, CN II-XII Intact, Speech Normal Skin: Present: Warm, Dry, Normal Color. No: Rashes Psychiatric: Present: Alert, Oriented x 3, Normal Insight, Normal Concentration Medical Decision Making ED Course and Treatment: 01/06/18 17:06 Impression: 62 year old male referred to the Emergency department by Dr. Jack presents for a CT angiogram of left lower extremity following left 5th toe amputation 2 weeks ago. Plan: -- Blood culture -- Labs -- Heparin, Sodium Chloride IV fluids -- Reassess and disposition Prior Visits: Notes and results from previous visits were reviewed. Patient was last seen in the emergency department on 12/04/17, was diagnosed with cellulitis, and was admitted to the hospital. Progress Notes: - Lab Interpretations Lab Results: 01/06/18 14:11 01/06/18 14:11 Lab Results 01/06/18 14:11: Sodium 139, Potassium 4.4, Chloride 101, Carbon Dioxide 29, Anion Gap 13, BUN 19, Creatinine 1.1, Est GFR ( Amer) > 60, Est GFR (Non- Af Amer) > 60, Random Glucose 223 H, Calcium 9.0, Total Bilirubin 0.6, AST 22, ALT 34, Alkaline Phosphatase 68, Total Protein 7.0, Albumin 3.8, Globulin 3.2, Albumin/Globulin Ratio 1.2 01/06/18 14:11: WBC 7.9, RBC 3.37 L, Hgb 10.8 L, Hct 30.5 L, MCV 90.5, MCH 32.0 , MCHC 35.4, RDW 12.5, Plt Count 130, MPV 9.6, Gran % 63.2, Lymph % (Auto) 25.3 , [place] % (Auto) 7.2 H, Eos % (Auto) 4.0, Baso % (Auto) 0.3, Gran # 5.00, Lymph # (Auto) 2.0, [place] # (Auto) 0.6, Eos # (Auto) 0.3, Baso # (Auto) 0.02 01/06/18 14:00: PT 11.6, INR 1.02, APTT 28.1 - Medication Orders Current Medication Orders: Amlodipine Besylate (Norvasc) 10 mg PO DAILY [facility] Ascorbic Acid (Vitamin C 500 Mg Tab) 500 mg PO DAILY [facility] Heparin Sodium (Porcine) (Heparin) 5,000 units SC Q8 [facility] Sodium Chloride (Sodium Chloride 0.9%) 100 mls @ 100 mls/hr IV .Q1H [facility] Insulin Human Lispro (Humalog Med) 0 units SC ACHS [facility] PRN Reason: Protocol Lisinopril (Zestril) 20 mg PO DAILY [facility] Discontinued Medications Heparin Sodium (Porcine) (Heparin) 5,000 units SC STAT STA PRN Reason: Protocol Stop: 01/06/18 16:11 Last Admin: 01/06/18 17:12 Dose: 5,000 units MAR aPTT Document 01/06/18 17:12 LA (Rec: 01/06/18 17:13 LA [id number]) aPTT aPTT (secs) 28.1 Subcutaneous Administrations Document 01/06/18 17:12 LA (Rec: 01/06/18 17:13 LA [id number]) Injection Site MAR Injection Site Right Arm Charges for Administration # of Subcutaneous Administrations 1 Heparin Sodium (Porcine) (Heparin) 5,000 units SC Q8 [facility] Sodium Chloride (Sodium Chloride 0.45%) 1,000 mls @ 80 mls/hr IV .[id number] ONE Stop: 01/07/18 03:35 Last Admin: 01/06/18 15:30 Dose: 80 mls/hr eMAR Start Stop Document 01/06/18 15:30 LA (Rec: 01/06/18 15:57 LA [id number]) Intravenous Solution Start Date 01/06/18 Start Time 15:30 - Scribe Statement The provider has reviewed the documentation as recorded by the Oumou Torres Provider Scribe Attestation: All medical record entries made by the Scribe were at my direction and personally dictated by me. I have reviewed the chart and agree that the record accurately reflects my personal performance of the history, physical exam, medical decision making, and the department course for this patient. I have also personally directed, reviewed, and agree with the discharge instructions and disposition. Disposition/Present on Arrival - Present on Arrival Any Indicators Present on Arrival: No History of DVT/PE: No History of Uncontrolled Diabetes: Yes Urinary Catheter: No History of Decub. Ulcer: No History Surgical Site Infection Following: None - Disposition Have Diagnosis and Disposition been Completed?: Yes Diagnosis: Amputated toe of left foot, PVD (peripheral vascular disease) Disposition: HOSPITALIZED Disposition Time: 14:15 Patient Problems: Current Active Problems Problem Status Onset Amputated toe of left foot Acute HTN (hypertension) Chronic Diabetes mellitus, insulin dependent (IDDM), uncontrolled Chronic Bradycardia Chronic Condition: STABLE
--- NOTE | 2018-01-06 17:16 | CP.PCM.HP ---
History of Present Illness - History of Present Illness History of Present Illness: Patient is a 62M with a PMH of uncontrolled DM, HTN and Hx of osteo of the L. 5th toe s/p amputation who comes to the ED with a CC of nonhealing wound after the L. toe amputation. Patient had the toe amputated two weeks ago with Dr. Jauregui and has been seeing him regularly. Patient states that Dr. Jauregui did not think the wound was healing appropriately so had him see Dr. Jack. Dr. Jack told the patient to go to the emergency room as he made need CTA to evaluate blood supply to the extremity as a cause for the non healing wound. He states he has been taking his insulin as directed but has not seen a primary care doctor despite being advised and given an appointment at [facility]. He denies any fevers or chills and has completed a 1 month course of Zyvox. He also complains of numbness at the plantar aspect of both feet. No other complaints at this time. PMD: None PMH: uncontrolled DM, HTN, Hx of osteo of the L. 5th toe s/p amputation PSH: L. 5th toe amputation FH: unremarkable SH: denies tobacco use, former smoker. Last admission was drinking 1-2 beers per day but has since stopped drinking. Denies drug use All: None Present on Admission - Present on Admission Any Indicators Present on Admission: Yes History of Uncontrolled Diabetes: Yes Review of Systems - Review of Systems Review of Systems: per HPI Past Patient History - Infectious Disease Hx of Infectious Diseases: None - Past Social History Smoking Status: Former Smoker - CARDIAC Hx Cardiac Disorders: Yes Hx Hypertension: Yes - PULMONARY Hx Respiratory Disorders: No - NEUROLOGICAL Hx Neurological Disorder: Yes Other/Comment: neuropathy - HEENT Hx HEENT Problems: No - RENAL Hx Chronic Kidney Disease: No - ENDOCRINE/METABOLIC Hx Diabetes Mellitus Type 1: Yes - HEMATOLOGICAL/ONCOLOGICAL Hx Blood Disorders: No - INTEGUMENTARY Hx Dermatological Problems: Yes Other/Comment: LEFT GREAT TOE DISCOLORED - MUSCULOSKELETAL/RHEUMATOLOGICAL Hx Musculoskeletal Disorders: No - GASTROINTESTINAL Hx Gastrointestinal Disorders: No - GENITOURINARY/GYNECOLOGICAL Hx Genitourinary Disorders: No - PSYCHIATRIC Hx Psychophysiologic Disorder: No Hx Substance Use: No - SURGICAL HISTORY Hx Amputation: Yes (Left fifth toe) Hx Musculoskeletal Surgery: Yes (Left fifth toe amputation) - ANESTHESIA Hx Anesthesia Reactions: No Hx Malignant Hyperthermia: No Meds Allergies/Adverse Reactions: Allergies Allergy/AdvReac Type Severity Reaction Status Date / Time No Known Allergies Allergy Verified 01/06/18 13:06 Physical Exam - Constitutional Appears: Non-toxic - Head Exam Head Exam: ATRAUMATIC, NORMAL INSPECTION, NORMOCEPHALIC - Eye Exam Eye Exam: EOMI, Normal appearance, PERRL Pupil Exam: NORMAL ACCOMODATION, PERRL - ENT Exam ENT Exam: Mucous Membranes Moist, Normal Exam, Normal Oropharynx - Respiratory Exam Respiratory Exam: Clear to Auscultation Bilateral, NORMAL BREATHING PATTERN. absent: Rales, Rhonchi, Wheezes - Cardiovascular Exam Cardiovascular Exam: Bradycardia, REGULAR RHYTHM - GI/Abdominal Exam GI & Abdominal Exam: Normal Bowel Sounds, Soft. absent: Distended, Tenderness - Extremities Exam Additional comments: L. 5 toe s/p amputation with non healing wound approx 1cm x 3cm with necrotic tissue present. No sensation to light touch on the feet bilaterally. Pulses 2+ DP and PT bilaterally. - Neurological Exam Neurological exam: Alert, Oriented x3 - Psychiatric Exam Psychiatric exam: Normal Affect, Normal Mood - Skin Skin Exam: Dry, Normal Color, Warm Results - Vital Signs Recent Vital Signs: Last Vital Signs Temp 98.8 F 01/06/18 13:09 Pulse 64 01/06/18 13:09 Resp 20 01/06/18 13:09 BP 144/80 01/06/18 13:09 Pulse Ox 97 01/06/18 13:09 - Labs Result Diagrams: 01/06/18 14:11 01/06/18 14:11 Assessment & Plan (1) Amputated toe of left foot Assessment and Plan: Patient has non healing wound on L. 5th digit s/p amputation 2 weeks prior. Just finished 4 weeks of zyvox for osteo Pods (Jauregui) IR (Jack) May need CTA to eval for blood supply to extremity contributing to poor healing Status: Acute Priority: High (2) Diabetes mellitus, insulin dependent (IDDM), uncontrolled Assessment and Plan: Follow up A1C as patient was recently started on insulin to evaluate control Patient does not have a PMD despite having appointment set up for him at [facility] on prior admission. Spoke in great detail about having a primary care doctor to take care of his diabetes and the complications of having such uncontrolled disease. Instructed him to follow up with [facility] upon discharge as he lives in [place]. He and his expressed understanding. Will have clinic information provided to him on discharge. Status: Chronic Priority: High (3) HTN (hypertension) Assessment and Plan: Norvasc 10 PO QD Zestril 20 PO QD Status: Chronic Priority: High (4) Bradycardia Assessment and Plan: Will repeat EKG and f/u TSH and T4 Status: Chronic Priority: Medium - Assessment and Plan (Free Text) Assessment: Heparin SCD No GI ppx indicated Contact precautions - hx of MRSA
[2018-01-06] MEDS: Insulin Lispro (humaLOG) MEDIUM Coverage SC SCH (22:06)
[2018-01-07 07:49] LABS: BASO # 0.04 K/mm3 (0.0-2.0); BASO % 0.5 % (0.0-3.0); EOS # 0.5 (0.0-0.7); EOS % 5.4 % (1.5-5.0); GRAN # 4.86 (1.4-6.5); GRAN % 58.7 % (50.0-68.0); HEMOGLOBIN 10.4 g/dL (14.0-18.0); LYMPH # 2.3 (1.2-3.4); LYMPH % 28.3 % (22.0-35.0); MEAN CELL VOLUME 90.1 fl (80.0-105.0); MEAN CORPUSCULAR HEMOGLOBIN 31.3 pg (25.0-35.0); MEAN CORPUSCULAR HGB CONC 34.8 g/dl (31.0-37.0); MEAN PLATELET VOLUME 9.5 fl (7.0-11.0); MONO # 0.6 (0.1-0.6); MONO % 7.1 % (1.0-6.0); RBC 3.32 10^6/uL (3.5-6.1); RED CELL DISTRIBUTION WIDTH 12.7 % (11.5-14.5); WHITE BLOOD COUNT 8.3 10^3/ul (4.5-11.0)
--- NOTE | 2018-01-07 07:50 | CARD ---
APPROVED REPORT EKG Measurement Heart [id number] <Conclusion> Sinus bradycardia Otherwise normal ECG
[2018-01-07 08:01] LABS: ALB/GLOB RATIO 1.2 (1.1-1.8); ALBUMIN 3.7 g/dL (3.0-4.8); ALT/SGPT 35 U/L (7-56); AST/SGOT 20 U/L (17-59); BLOOD UREA NITROGEN 17 mg/dL (7-21); CALCIUM 8.9 mg/dL (8.4-10.5); GFR AFRICAN-AMERICAN > 60; GFR NON-AFRICAN AMERICAN > 60
[2018-01-07] MEDS: Insulin Lispro (humaLOG) MEDIUM Coverage SC SCH ×3 (08:08→22:30)
[2018-01-07 08:15] LABS: T4 4.3 ug/dL (5.5-11.0)
[2018-01-07] MEDS ORDERED: Nitroglycerin 50mg in D5W 50 MG/250 ML BOTTLE IV ONE (09:22)
[2018-01-07] MEDS ORDERED: Lidocaine 2% Inj (20ml) ONE (09:22)
[2018-01-07] MEDS ORDERED: Iodixanol 320 MG/ML 200 ML BOTTLE IV ONE (09:24)
[2018-01-07] MEDS ORDERED: Iodixanol 320 MG/ML 100 ML BOTTLE IV ONE ×2 (09:24→10:12)
[2018-01-07] MEDS ORDERED: Midazolam 2 MG/2 ML VIAL ONE ×2 (09:25→09:39)
[2018-01-07] MEDS ORDERED: Oxycodone/Acetaminophen 5/325 mg Tab PO PRN (10:50)
--- NOTE | 2018-01-07 11:35 | VASCULAR ---
PROCEDURE: 1. Abdominal aortogram and bilateral lower extremity runoff with left selective views. 2. Distal left anterior tibial artery angioplasty HISTORY: Severe peripheral vascular disease. Nonhealing ulcer after amputation left foot. Diabetes. Previous smoker. PHYSICIAN(S): Willam Jack M.D. TECHNIQUE: The relative risks and indications of the procedure were explained to the patient and his and consent obtained. The patient was hydrated prior to the procedure and the appropriate labs drawn. The patient was placed supine on the arteriogram table and the right groin prepped and draped in the usual sterile fashion. Conscious sedation and monitoring were provided throughout the procedure by a nurse. Via a right common femoral artery approach, a 5 Palestinian sheath was placed in the right groin. Through the sheath and over a guidewire, a 5 Palestinian flush catheter was placed in the abdominal aorta at the level of the renal arteries and a PA DSA abdominal aortogram performed. The catheter was pulled down to the aortic bifurcation and bilateral oblique DSA pelvic arteriograms performed. Overlapping bilateral lower extremity DSA arteriograms were obtained from the inguinal ligaments to the feet. A 0.035 angled Glidewire was advanced over the bifurcation and placed in the distal left SFA. A 6 Palestinian 65 cm destination sheath was placed in the mid to distal left SFA. Heparin 6500 units IV and nitroglycerin in 250 mcg aliquots were given. With a 3 cm occlusion in the distal left anterior tibial artery was crossed with 0.014 guidewire. The distal left anterior tibial artery was dilated with 3.0 x 8 cm angioplasty balloon. A good angiographic result was obtained with brisk flow. No stent was required. Attempts at crossing the chronic long segment left posterior tibial artery occlusion were unsuccessful in an antegrade direction. Completion angiograms were obtained. The sheath was removed hemostasis obtained with a Perclose device. The patient tolerated the procedure well. FINDINGS: There are single renal arteries bilaterally which are widely patent and normal in appearance. The nephrograms are symmetric in appearance. The infrarenal abdominal aorta is widely patent without a radiographically significant stenosis. The aortic bifurcation is widely patent. The common and external iliac arteries are normal in appearance without a significant stenosis. The internal iliac arteries are patent bilaterally. The infrainguinal runoff is relatively normal to the knees. There is bilateral tibial and pedal occlusive disease, most significant distally at the foot On the left, there is 2 vessel runoff via the left anterior tibial and peroneal arteries. The left posterior tibial artery occludes proximally. The left peroneal artery supplies the heel and has significant disease distally. There is a 3 cm occlusion of the distal left anterior tibial artery. The dorsalis pedis artery supplies the plantar arch. IMPRESSION: 1.Severe bilateral tibial and pedal occlusive disease. 2. Successful distal left anterior tibial artery angioplasty. The dorsalis pedis artery appears to supply the plantar arch
[2018-01-07 11:56] LABS: ALB/GLOB RATIO 1.2 (1.1-1.8); ALBUMIN 3.4 g/dL (3.0-4.8); ALT/SGPT 30 U/L (7-56); AST/SGOT 20 U/L (17-59); BLOOD UREA NITROGEN 15 mg/dL (7-21); CALCIUM 8.1 mg/dL (8.4-10.5); GFR AFRICAN-AMERICAN > 60; GFR NON-AFRICAN AMERICAN > 60
--- NOTE | 2018-01-07 12:37 | CP.PCM.CON ---
History of Present Illness - History of Present Illness History of Present Illness: Podiatry Consult Note- Dr. Jauregui 62 y.o male with PMH of DM, HTN, OM seen and evaluated at bedside for left foot ulcerations, including a nonhealing ulceration secondary to s/p left 5th ray resection secondary to OM by Dr. Jauregui. Patient is known to Dr. Jauregui and has been following up weekly with Dr. Perales. Patient is seen resting comfortably in bed, in NAD, and AA0x3. Family member seen at bedside during visitation. Patient denies nausea, fever, shortness of breath, chest pains or chills. No new pedal complains. Past Patient History - Infectious Disease Hx of Infectious Diseases: None - Past Social History Smoking Status: Former Smoker - CARDIAC Hx Cardiac Disorders: Yes Hx Hypertension: Yes - PULMONARY Hx Respiratory Disorders: No - NEUROLOGICAL Hx Neurological Disorder: Yes Other/Comment: neuropathy - HEENT Hx HEENT Problems: No - RENAL Hx Chronic Kidney Disease: No - ENDOCRINE/METABOLIC Hx Diabetes Mellitus Type 1: Yes - HEMATOLOGICAL/ONCOLOGICAL Hx Blood Disorders: No - INTEGUMENTARY Hx Dermatological Problems: Yes Other/Comment: LEFT GREAT TOE DISCOLORED - MUSCULOSKELETAL/RHEUMATOLOGICAL Hx Musculoskeletal Disorders: No - GASTROINTESTINAL Hx Gastrointestinal Disorders: No - GENITOURINARY/GYNECOLOGICAL Hx Genitourinary Disorders: No - PSYCHIATRIC Hx Psychophysiologic Disorder: No Hx Substance Use: No - SURGICAL HISTORY Hx Amputation: Yes (Left fifth toe) Hx Musculoskeletal Surgery: Yes (Left fifth toe amputation) - ANESTHESIA Hx Anesthesia Reactions: No Hx Malignant Hyperthermia: No Meds Allergies/Adverse Reactions: Allergies Allergy/AdvReac Type Severity Reaction Status Date / Time No Known Allergies Allergy Verified 01/06/18 13:06 - Medications Medications: Current Medications Acetaminophen (Tylenol 325mg Tab) 650 mg PO Q4H PRN PRN Reason: Pain, Mild (1-3) Amlodipine Besylate (Norvasc) 10 mg PO DAILY [facility] Last Admin: 01/07/18 09:34 Dose: Not Given Ascorbic Acid (Vitamin C 500 Mg Tab) 500 mg PO DAILY [facility] Heparin Sodium (Porcine) (Heparin) 5,000 units SC Q8 [facility] Last Admin: 01/07/18 05:37 Dose: 5,000 units Sodium Chloride (Sodium Chloride 0.9%) 100 mls @ 100 mls/hr IV .Q1H [facility] Sodium Chloride (Sodium Chloride 0.45%) 1,000 mls @ 80 mls/hr IV .[id number] [facility] Stop: 01/09/18 08:00 Insulin Human Lispro (Humalog Med) 0 units SC ACHS [facility] PRN Reason: Protocol Last Admin: 01/07/18 08:08 Dose: Not Given Lisinopril (Zestril) 20 mg PO DAILY [facility] Last Admin: 01/07/18 09:34 Dose: Not Given Ondansetron HCl (Zofran Inj) 4 mg IVP ONCE PRN PRN Reason: Nausea/Vomiting Oxycodone/Acetaminophen (Percocet 5/325 Mg Tab) 1 tab PO Q4H PRN PRN Reason: Pain, moderate (4-7) Stop: 01/10/18 10:51 Physical Exam - Constitutional Appears: Well, Non-toxic, No Acute Distress - Extremities Exam Extremities exam: Negative for: calf tenderness Additional comments: VASC: Right DP and PT pulses palpable. Left DP and PT pulses nonpalpable secondary to edema. CFT <3 seconds to all digits right foot and approx 3 sec to all digits on the left. Temperature gradient warm to cool from proximal to distal with mild increase in temperature on the left lateral foot DERM: LLE= Surgerical site of 5th ray amputation is open with sutures intact to proximal end, jaida-incision area macerated with hyperpigmented skin changes on the proximal medial aspect of the incision site, no purulence, malodor +; wound base is mainly fibrous measuring approximately 4 x 5 cm x .4 cm down to bone Superficial ulceration noted to the dorsum of the midfoot measuring approximately 2.5 cm x 3 cm x .1 with wound base mainly granular. No erythema, no streaking, no odor, no drainage, no tunneling Ulceration noted to medial aspect of 1st met head measuring approximately 0.5 x 0.5 x 0.1 cm - noted to have a mixed granular/necrotic base and hyperkeratotic rim; serosanguinous drainage present; no periwound erythema; no purulence; no fluctuance; no undermining; no tunneling RLE=WNL NEURO: Light touch and protective sensation moderately diminished b/l. ORTHO: No pain on palpation left medial 1st met head ulceration. no pain on palpation of the surgical site, Muscle strength 5/5 for all dorisflexors, plantarflexors, inverters, and everters b/l. - Neurological Exam Neurological exam: Alert, Oriented x3 - Psychiatric Exam Psychiatric exam: Normal Affect, Normal Mood Results - Vital Signs Recent Vital Signs: Last Vital Signs Temp 98.2 F 01/07/18 11:50 Pulse 54 L 01/07/18 11:50 Resp 15 01/07/18 11:50 BP 156/75 H 01/07/18 11:50 Pulse Ox 96 01/07/18 06:00 - Labs Result Diagrams: 01/08/18 07:30 01/08/18 07:30 Labs: Laboratory Results - last 24 hr 01/06/18 01/07/18 01/07/18 20:55 06:41 07:15 WBC RBC Hgb Hct MCV MCH MCHC RDW Plt Count MPV Gran % Lymph % (Auto) Evangeline % (Auto) Eos % (Auto) Baso % (Auto) Gran # Lymph # (Auto) Evangeline # (Auto) Eos # (Auto) Baso # (Auto) Sodium Potassium Chloride Carbon Dioxide Anion Gap BUN Creatinine Est GFR ( Amer) Est GFR (Non-Af Amer) POC Glucose (mg/dL) 170 H 121 H Random Glucose Hemoglobin A1c 9.4 H Calcium Phosphorus Magnesium Total Bilirubin AST ALT Alkaline Phosphatase Total Protein Albumin Globulin Albumin/Globulin Ratio Thyroxine (T4) TSH 3rd Generation 01/07/18 01/07/18 01/07/18 07:15 07:15 07:15 WBC 8.3 RBC 3.32 L Hgb 10.4 L Hct 29.9 L MCV 90.1 MCH 31.3 MCHC 34.8 RDW 12.7 Plt Count 136 MPV 9.5 Gran % 58.7 Lymph % (Auto) 28.3 Evangeline % (Auto) 7.1 H Eos % (Auto) 5.4 H Baso % (Auto) 0.5 Gran # 4.86 Lymph # (Auto) 2.3 Evangeline # (Auto) 0.6 Eos # (Auto) 0.5 Baso # (Auto) 0.04 Sodium 142 Potassium 4.6 Chloride 104 Carbon Dioxide 28 Anion Gap 14 BUN 17 Creatinine 1.2 Est GFR ( Amer) > 60 Est GFR (Non-Af Amer) > 60 POC Glucose (mg/dL) Random Glucose 133 H Hemoglobin A1c Calcium 8.9 Phosphorus 4.1 Magnesium 2.0 Total Bilirubin 0.5 AST 20 ALT 35 Alkaline Phosphatase 66 Total Protein 6.8 Albumin 3.7 Globulin 3.0 Albumin/Globulin Ratio 1.2 Thyroxine (T4) 4.3 L TSH 3rd Generation 4.97 H 01/07/18 11:30 WBC RBC Hgb Hct MCV MCH MCHC RDW Plt Count MPV Gran % Lymph % (Auto) Evangeline % (Auto) Eos % (Auto) Baso % (Auto) Gran # Lymph # (Auto) Evangeline # (Auto) Eos # (Auto) Baso # (Auto) Sodium 138 Potassium 4.7 Chloride 103 Carbon Dioxide 26 Anion Gap 14 BUN 15 Creatinine 1.1 Est GFR ( Amer) > 60 Est GFR (Non-Af Amer) > 60 POC Glucose (mg/dL) Random Glucose 130 H Hemoglobin A1c Calcium 8.1 L Phosphorus Magnesium Total Bilirubin 0.5 AST 20 ALT 30 Alkaline Phosphatase 61 Total Protein 6.2 Albumin 3.4 Globulin 2.9 Albumin/Globulin Ratio 1.2 Thyroxine (T4) TSH 3rd Generation Assessment & Plan - Assessment and Plan (Free Text) Assessment: 62 y.o male with PMH of DM, HTN, OM seen and evaluated at bedside for left foot ulcerations, including a nonhealing ulceration secondary to s/p left 5th ray resection secondary to OM Plan: Patient seen and evaluated Discussed plan in detail with attending Dr. Jauregui Cleansed ulceration with saline solution, betadine W2D, dsd, abd, and kerlix applied Will provide conservative treatment while in house Patient may WBAT in surgical shoe Continue abx per team Upon discharge, patient to follow up with Dr. Jauregui within 1 week Patient to change dressing daily upon discharge, betadine wet to dry, dsd, and kerlix
--- NOTE | 2018-01-07 14:01 | CP.PCM.PN ---
<Lexi Morin - Last Filed: 01/07/18 13:58> Subjective - Date & Time of Evaluation Date of Evaluation: 01/07/18 Time of Evaluation: 13:58 - Subjective Subjective: IM progress note for Dr. Dunn-Lexi Morin, PGY-1 Pt S & E at bedside at 0755 Pt reports occasional intermittent left foot pain, insomnia. Denies N & V, F & C , Chest pain, other complaints. Tolerating diet. Moving bowels, voiding ok. Objective - Vital Signs/Intake and Output Vital Signs (last 24 hours): Temp Pulse Resp BP Pulse Ox 98.2 F 54 L 15 156/75 H 96 01/07/18 11:50 01/07/18 11:50 01/07/18 11:50 01/07/18 11:50 01/07/18 06:00 Intake and Output: 01/07/18 01/07/18 06:59 18:59 Intake Total 660 Output Total 1174 Balance -514 - Medications Medications: Current Medications Acetaminophen (Tylenol 325mg Tab) 650 mg PO Q4H PRN PRN Reason: Pain, Mild (1-3) Amlodipine Besylate (Norvasc) 10 mg PO DAILY [facility] Last Admin: 01/07/18 09:34 Dose: Not Given Ascorbic Acid (Vitamin C 500 Mg Tab) 500 mg PO DAILY [facility] Heparin Sodium (Porcine) (Heparin) 5,000 units SC Q8 [facility] Last Admin: 01/07/18 05:37 Dose: 5,000 units Sodium Chloride (Sodium Chloride 0.9%) 100 mls @ 100 mls/hr IV .Q1H [facility] Sodium Chloride (Sodium Chloride 0.45%) 1,000 mls @ 80 mls/hr IV .[id number] [facility] Stop: 01/09/18 08:00 Insulin Human Lispro (Humalog Med) 0 units SC ACHS [facility] PRN Reason: Protocol Last Admin: 01/07/18 08:08 Dose: Not Given Lisinopril (Zestril) 20 mg PO DAILY [facility] Last Admin: 01/07/18 09:34 Dose: Not Given Ondansetron HCl (Zofran Inj) 4 mg IVP ONCE PRN PRN Reason: Nausea/Vomiting Oxycodone/Acetaminophen (Percocet 5/325 Mg Tab) 1 tab PO Q4H PRN PRN Reason: Pain, moderate (4-7) Stop: 01/10/18 10:51 - Labs Labs: 01/07/18 07:15 01/07/18 11:30 PT 11.6 SECONDS (9.4-12.5) 01/06/18 14:00 INR 1.02 (0.93-1.08) 01/06/18 14:00 APTT 28.1 Seconds (25.1-36.5) 01/06/18 14:00 - Constitutional Appears: Non-toxic, No Acute Distress - Head Exam Head Exam: ATRAUMATIC, NORMAL INSPECTION, NORMOCEPHALIC - Eye Exam Eye Exam: EOMI, Normal appearance - ENT Exam ENT Exam: Mucous Membranes Moist, Normal Exam - Neck Exam Neck Exam: Full ROM, Normal Inspection - Respiratory Exam Respiratory Exam: Clear to Ausculation Bilateral, NORMAL BREATHING PATTERN - Cardiovascular Exam Cardiovascular Exam: REGULAR RHYTHM, +S1, +S2 - GI/Abdominal Exam GI & Abdominal Exam: Soft, Normal Bowel Sounds. absent: Tenderness - Extremities Exam Extremities Exam: absent: Normal Inspection (5th toe amputation with dressing in place- dried betadine noted) - Neurological Exam Neurological Exam: Alert, Awake, CN II-XII Intact, Oriented x3 - Psychiatric Exam Psychiatric exam: Normal Affect, Normal Mood - Skin Skin Exam: Dry, Intact, Normal Color, Warm Additional comments: Excluding left foot skin, which has white discoloration at wound margins Assessment and Plan - Assessment and Plan (Free Text) Assessment: 62M w/PMH of uncontrolled DM, HTN and Hx of osteo of the L. 5th toe s/p amputation admitted for wound care and evaluation Plan: Amputated 5th digit of Left foot CTA today w/IR Pain control Vitamin C NS@100 Completed 4 wks of Zyvox Wound care nursing referral ID consulted for recommendations Pods following DM A1c- 9.1 - high ISS Accuchecks Diabetic diet HTN Norvasc Zestril Bradycardia FU EKG TSH 4.97-high FT4 low-4.3 GI/DVT ppx Heparin SCD NO GI ppx indicated Dispo Contact precautions 2/2 hx of MRSA PT eval DW attending Patience, PGY-1 <Matty Dunn - Last Filed: 01/19/18 17:13> Objective - Vital Signs/Intake and Output Vital Signs (last 24 hours): Temp Pulse Resp BP Pulse Ox 98.4 F 88 20 135/60 96 01/13/18 06:00 01/13/18 09:14 01/13/18 06:00 01/13/18 09:14 01/13/18 06:00 - Labs Labs: 01/11/18 07:00 01/11/18 07:00 PT 11.6 SECONDS (9.4-12.5) 01/06/18 14:00 INR 1.02 (0.93-1.08) 01/06/18 14:00 APTT 28.1 Seconds (25.1-36.5) 01/06/18 14:00 Attending/Attestation - Attestation I have personally seen and examined this patient.: Yes I have fully participated in the care of the patient.: Yes I have reviewed all pertinent clinical information, including history, physical exam and plan: Yes Notes (Text): 62M w/PMH of uncontrolled DM, HTN and Hx of osteo of the L. 5th toe s/p amputation admitted for wound care and evaluation Amputated 5th digit of Left foot DM HTN
[2018-01-07] MEDS: Sodium Chloride 0.45% 1,000 ML IV SCH (15:04)
[2018-01-08] MEDS: Sodium Chloride 0.45% 1,000 ML IV SCH ×2 (02:44→13:18)
[2018-01-08 07:59] LABS: BASO # 0.02 K/mm3 (0.0-2.0); BASO % 0.2 % (0.0-3.0); EOS # 0.4 (0.0-0.7); EOS % 4.6 % (1.5-5.0); GRAN # 5.08 (1.4-6.5); GRAN % 60.8 % (50.0-68.0); HEMOGLOBIN 10.2 g/dL (14.0-18.0); LYMPH # 2.2 (1.2-3.4); LYMPH % 26.7 % (22.0-35.0); MEAN CELL VOLUME 89.4 fl (80.0-105.0); MEAN CORPUSCULAR HEMOGLOBIN 31.7 pg (25.0-35.0); MEAN CORPUSCULAR HGB CONC 35.4 g/dl (31.0-37.0); MEAN PLATELET VOLUME 9.4 fl (7.0-11.0); MONO # 0.6 (0.1-0.6); MONO % 7.7 % (1.0-6.0); RBC 3.22 10^6/uL (3.5-6.1); RED CELL DISTRIBUTION WIDTH 12.6 % (11.5-14.5); WHITE BLOOD COUNT 8.4 10^3/ul (4.5-11.0)
[2018-01-08 08:06] LABS: BLOOD UREA NITROGEN 14 mg/dL (7-21); CALCIUM 8.6 mg/dL (8.4-10.5); GFR AFRICAN-AMERICAN > 60; GFR NON-AFRICAN AMERICAN > 60
[2018-01-08] MEDS: Insulin Lispro (humaLOG) MEDIUM Coverage SC SCH ×3 (09:10→22:00)
[2018-01-08] MEDS: Sodium Chloride 0.9% 100 ML IV SCH ×2 (09:11→09:12)
--- NOTE | 2018-01-08 11:57 | CP.PCM.PN ---
Subjective - Date & Time of Evaluation Date of Evaluation: 01/08/18 Time of Evaluation: 11:49 - Subjective Subjective: Podiatry progress note for Dr. Jauregui 62M seen at bedside for three ulcerations to left foot, one of which is s/p partial fifth ray resection. Patient is AAO x 3 and NAD, resting comfortably in bed. Denies any acute overnight events or any new pedal complaints. Denies any recent N/V/F/C/CP/SOB/D. Objective - Vital Signs/Intake and Output Vital Signs (last 24 hours): Temp Pulse Resp BP Pulse Ox 98.4 F 60 20 142/68 96 01/08/18 06:00 01/08/18 09:08 01/08/18 06:00 01/08/18 09:08 01/08/18 06:00 Intake and Output: 01/08/18 01/08/18 06:59 18:59 Intake Total 1500 Output Total 2900 Balance -1400 - Medications Medications: Current Medications Acetaminophen (Tylenol 325mg Tab) 650 mg PO Q4H PRN PRN Reason: Pain, Mild (1-3) Amlodipine Besylate (Norvasc) 10 mg PO DAILY [facility] Last Admin: 01/08/18 09:07 Dose: 10 mg Ascorbic Acid (Vitamin C 500 Mg Tab) 500 mg PO DAILY [facility] Last Admin: 01/08/18 09:07 Dose: 500 mg Heparin Sodium (Porcine) (Heparin) 5,000 units SC Q8 [facility] Last Admin: 01/08/18 05:30 Dose: 5,000 units Sodium Chloride (Sodium Chloride 0.9%) 100 mls @ 100 mls/hr IV .Q1H [facility] Sodium Chloride (Sodium Chloride 0.45%) 1,000 mls @ 80 mls/hr IV .[id number] [facility] Stop: 01/09/18 08:00 Last Admin: 01/08/18 02:44 Dose: 80 mls/hr Insulin Human Lispro (Humalog Med) 0 units SC ACHS [facility] PRN Reason: Protocol Last Admin: 01/08/18 11:35 Dose: 3 units Linezolid (Zyvox) 600 mg PO Q12 [facility] PRN Reason: Protocol Last Admin: 01/08/18 09:07 Dose: 600 mg Lisinopril (Zestril) 20 mg PO DAILY [facility] Last Admin: 01/08/18 09:08 Dose: 20 mg Ondansetron HCl (Zofran Inj) 4 mg IVP ONCE PRN PRN Reason: Nausea/Vomiting Oxycodone/Acetaminophen (Percocet 5/325 Mg Tab) 1 tab PO Q4H PRN PRN Reason: Pain, moderate (4-7) Stop: 01/10/18 10:51 - Labs Labs: 01/08/18 07:30 01/08/18 07:30 PT 11.6 SECONDS (9.4-12.5) 01/06/18 14:00 INR 1.02 (0.93-1.08) 01/06/18 14:00 APTT 28.1 Seconds (25.1-36.5) 01/06/18 14:00 - Constitutional Appears: Well, Non-toxic, No Acute Distress - Head Exam Head Exam: ATRAUMATIC, NORMOCEPHALIC - Extremities Exam Additional comments: LE focused exam: VASC: Right DP and PT pulses palpable. Left DP and PT pulses nonpalpable secondary to edema. CFT <3 seconds to all digits right foot and approx 3 sec to all digits on the left. Temperature gradient warm to cool from proximal to distal with mild increase in temperature on the left lateral foot DERM: LLE= Surgical site of 5th ray amputation is open with sutures intact to proximal end, jaida-incision area macerated with hyperpigmented skin changes on the proximal medial aspect of the incision site, no purulence, strong malodor; wound base is fibronecrotic measuring approximately 4 x 5 cm x .4 cm down to bone Superficial ulceration noted to the dorsum of the midfoot measuring approximately 2.5 cm x 3 cm x .1 with wound base mainly granular. No erythema, no streaking, no odor, no drainage, no tunneling, no other clinical signs of infection Ulceration noted to medial aspect of 1st met head measuring approximately 0.5 x 0.5 x 0.1 cm - noted to have a mixed granular/necrotic base and hyperkeratotic rim; no serosanguinous drainage present; no periwound erythema; no purulence; no fluctuance; no undermining; no tunneling, no probe to bone, no other clinical signs of infection RLE=WNL NEURO: Epicritic and protective sensation grossly diminished b/l ORTHO: No pain on palpation left medial 1st met head ulceration. no pain on palpation of the surgical site, Muscle strength 5/5 for all dorisflexors, plantarflexors, inverters, and everters b/l. - Neurological Exam Neurological Exam: Alert, Awake, Oriented x3 - Psychiatric Exam Psychiatric exam: Normal Affect, Normal Mood Assessment and Plan - Assessment and Plan (Free Text) Assessment: 62M seen at bedside for three ulcerations to left foot, one of which is s/p partial fifth ray resection Plan: Patient seen and evaluated Plan discussed with attending Dr. Jauregui Afebrile, absent leukocytosis Continue IV abx per ID Wounds dressed with adaptic, ABD, DSD Will perform bedside debridement of all nonviable tissue tomorrow No plan for surgical intervention at this time Podiatry will continue to follow while patient in house Upon discharge, patient will continue to follow up with Dr. Perales for wound care
--- NOTE | 2018-01-08 12:52 | CARD ---
APPROVED REPORT EKG Measurement Heart [id number] <Conclusion> Sinus bradycardia Otherwise normal ECG
--- NOTE | 2018-01-08 17:04 | CON ---
DATE: 01/08/2018 REASON FOR CONSULTATION: The patient seen earlier today and the patient is admitted for an angiogram and on an angioplasty of the leg. CHIEF COMPLAINT AND HISTORY OF PRESENT ILLNESS: A 62-year-old male with diabetes, diabetic neuropathy, coronary artery disease, hypertension, long-time ex-smoker, alcohol user, recent hospitalization with left leg cellulitis and left fifth toe gangrene with osteomyelitis. He had amputation, followed by 4 weeks of antibiotics and the patient had partial fifth ray amputation on 12/09/2017, now which is approximately 4 weeks ago and THE PATIENT HAS NO KNOWN ALLERGIES. At the time, cultures have grown MRSA and MSSA. It was treated with Zyvox, has completed therapy now. He is admitted for angiogram. Had a low grade temperature of 100.1. REVIEW OF SYSTEMS: Reveals no chest pain, no shortness of breath, no cough, no hemoptysis. PAST MEDICAL HISTORY: Significant for coronary artery disease, hypertension, diabetes mellitus, diabetic neuropathy, peripheral vascular disease, long-time ex-smoker, alcohol abuser. PAST SURGICAL HISTORY: Significant for partial fifth ray amputation approximately a month ago. ALLERGIES: THE PATIENT HAS NO KNOWN ALLERGIES. PHYSICAL EXAMINATION: VITAL SIGNS: The patient's temperature is 100.1, pulse of 71, respiratory rate of 18 with blood pressure is 160/80. HEENT: Unremarkable. NECK: Supple. LUNGS: Have decreased breath sounds. HEART: Normal S1, S2. ABDOMEN: Soft, nontender. No rebound or guarding. EXTREMITIES: Examination of foot reveals an open ulcer, however, no erythema, no discharge. There is no evidence of infection, just chronic healed ulcer. LABORATORY EXAMINATION: Reveals a white count of 7.5. Coagulation is noted. Chemistries are reviewed. Microbiology reveals the blood cultures are negative and the patient had Dr. Willam Jack's interventional vascular procedure done, which showed a severe bilateral occlusive disease and a successful distal left anterior tibial artery angioplasty. ASSESSMENT AND PLAN: A 62-year-old male with diabetes mellitus, coronary artery disease, hypertension, diabetic neuropathy with left fifth toe amputation with an ulcer. Cultures are negative, low grade fevers. The patient started on Zyvox p.o. empirically. We will check on final culture result and we will make further recommendations. Dada Dorsey MD
--- NOTE | 2018-01-08 18:28 | CP.PCM.PN ---
<Kenny Oh - Last Filed: 01/08/18 18:29> Subjective - Date & Time of Evaluation Date of Evaluation: 01/08/18 Time of Evaluation: 18:26 - Subjective Subjective: Patient seen and examined at bedside. No complaints at this time. No pain in the leg. Denies fevers or chill. No nausea or vomiting. No diarrhea. No chest pain or SOB. Tolerating diet. Objective - Vital Signs/Intake and Output Vital Signs (last 24 hours): Temp Pulse Resp BP Pulse Ox 98.5 F 58 L 18 129/75 95 01/08/18 14:00 01/08/18 14:00 01/08/18 14:00 01/08/18 14:00 01/08/18 14:00 - Medications Medications: Current Medications Acetaminophen (Tylenol 325mg Tab) 650 mg PO Q4H PRN PRN Reason: Pain, Mild (1-3) Amlodipine Besylate (Norvasc) 10 mg PO DAILY [facility] Last Admin: 01/08/18 09:07 Dose: 10 mg Ascorbic Acid (Vitamin C 500 Mg Tab) 500 mg PO DAILY [facility] Last Admin: 01/08/18 09:07 Dose: 500 mg Heparin Sodium (Porcine) (Heparin) 5,000 units SC Q8 [facility] Last Admin: 01/08/18 13:19 Dose: 5,000 units Insulin Human Lispro (Humalog Med) 0 units SC ACHS [facility] PRN Reason: Protocol Last Admin: 01/08/18 11:35 Dose: 3 units Linezolid (Zyvox) 600 mg PO Q12 [facility] PRN Reason: Protocol Last Admin: 01/08/18 09:07 Dose: 600 mg Lisinopril (Zestril) 20 mg PO DAILY [facility] Last Admin: 01/08/18 09:08 Dose: 20 mg Ondansetron HCl (Zofran Inj) 4 mg IVP ONCE PRN PRN Reason: Nausea/Vomiting Oxycodone/Acetaminophen (Percocet 5/325 Mg Tab) 1 tab PO Q4H PRN PRN Reason: Pain, moderate (4-7) Stop: 01/10/18 10:51 - Labs Labs: PT 11.6 SECONDS (9.4-12.5) 01/06/18 14:00 INR 1.02 (0.93-1.08) 01/06/18 14:00 APTT 28.1 Seconds (25.1-36.5) 01/06/18 14:00 - Constitutional Appears: Well - Head Exam Head Exam: ATRAUMATIC, NORMAL INSPECTION, NORMOCEPHALIC - Eye Exam Eye Exam: EOMI, Normal appearance, PERRL Pupil Exam: NORMAL ACCOMODATION, PERRL - ENT Exam ENT Exam: Mucous Membranes Moist, Normal Exam - Neck Exam Neck Exam: Full ROM, Normal Inspection. absent: Lymphadenopathy - Respiratory Exam Respiratory Exam: Clear to Ausculation Bilateral, NORMAL BREATHING PATTERN - Cardiovascular Exam Cardiovascular Exam: REGULAR RHYTHM, +S1, +S2. absent: Murmur - GI/Abdominal Exam GI & Abdominal Exam: Soft, Normal Bowel Sounds. absent: Distended, Tenderness - Extremities Exam Extremities Exam: absent: Joint Swelling, Pedal Edema Additional comments: L. 5 toe s/p amputation with non healing wound approx 1cm x 3cm with necrotic tissue present. No sensation to light touch on the feet bilaterally. Pulses 2+ DP and PT bilaterally. - Back Exam Back Exam: NORMAL INSPECTION - Neurological Exam Neurological Exam: Alert, Awake, CN II-XII Intact, Normal Gait, Oriented x3 - Psychiatric Exam Psychiatric exam: Normal Affect, Normal Mood - Skin Skin Exam: Dry, Intact, Normal Color, Warm Assessment and Plan - Assessment and Plan (Free Text) Assessment: (1) Amputated toe of left foot Assessment and Plan: Patient has non healing wound on L. 5th digit s/p amputation 2 weeks prior. Just finished 4 weeks of zyvox for osteo Pods (Jauregui) IR (Jack) ID (Gamal) - continue zyvox 600 PO Q12 s/p Left anterior tibial angioplasty for severe tibial and pedal occlusive disease possible debridment by podiatry tomorrow Status: Acute Priority: High (2) Diabetes mellitus, insulin dependent (IDDM), uncontrolled Assessment and Plan: A1c is 9.4 indicating compliance on his new insulin regimen as it has decreased since last admission Patient does not have a PMD despite having appointment set up for him at [facility] clinic on prior admission. Spoke in great detail about having a primary care doctor to take care of his diabetes and the complications of having such uncontrolled disease. Instructed him to follow up with [facility] upon discharge as he lives in [place]. He and his expressed understanding. Will have clinic information provided to him on discharge. Status: Chronic Priority: High (3) HTN (hypertension) Assessment and Plan: Norvasc 10 PO QD Zestril 20 PO QD Status: Chronic Priority: High (4) Bradycardia Assessment and Plan: repeat EKG sinus malcolm (HR 57) TSH mild elevated @ 4.97 F/U free T4 Status: Chronic Priority: Medium - Assessment and Plan (Free Text) Assessment: Heparin SCD No GI ppx indicated Contact precautions - hx of MRSA <Arslan Bedoya - Last Filed: 01/09/18 14:19> Objective - Vital Signs/Intake and Output Vital Signs (last 24 hours): Temp Pulse Resp BP Pulse Ox 97.6 F 61 20 137/72 98 01/09/18 07:00 01/09/18 09:05 01/09/18 07:00 01/09/18 09:05 01/09/18 07:00 Intake and Output: 01/09/18 01/09/18 06:59 18:59 Intake Total 900 Balance 900 - Medications Medications: Current Medications Acetaminophen (Tylenol 325mg Tab) 650 mg PO Q4H PRN PRN Reason: Pain, Mild (1-3) Amlodipine Besylate (Norvasc) 10 mg PO DAILY [facility] Last Admin: 01/09/18 09:05 Dose: 10 mg Ascorbic Acid (Vitamin C 500 Mg Tab) 500 mg PO DAILY [facility] Last Admin: 01/09/18 09:05 Dose: 500 mg Heparin Sodium (Porcine) (Heparin) 5,000 units SC Q8 [facility] Last Admin: 01/09/18 05:47 Dose: 5,000 units Insulin Human Lispro (Humalog Med) 0 units SC ACHS [facility] PRN Reason: Protocol Last Admin: 01/09/18 12:20 Dose: Not Given Linezolid (Zyvox) 600 mg PO Q12 [facility] PRN Reason: Protocol Last Admin: 01/09/18 09:05 Dose: 600 mg Lisinopril (Zestril) 20 mg PO DAILY [facility] Last Admin: 01/09/18 09:05 Dose: 20 mg Ondansetron HCl (Zofran Inj) 4 mg IVP ONCE PRN PRN Reason: Nausea/Vomiting Oxycodone/Acetaminophen (Percocet 5/325 Mg Tab) 1 tab PO Q4H PRN PRN Reason: Pain, moderate (4-7) Stop: 01/10/18 10:51 - Labs Labs: 01/09/18 07:00 01/09/18 07:00 PT 11.6 SECONDS (9.4-12.5) 01/06/18 14:00 INR 1.02 (0.93-1.08) 01/06/18 14:00 APTT 28.1 Seconds (25.1-36.5) 01/06/18 14:00 Attending/Attestation - Attestation I have personally seen and examined this patient.: Yes I have fully participated in the care of the patient.: Yes I have reviewed all pertinent clinical information, including history, physical exam and plan: Yes Notes (Text): 01/09/18 14:19 Medical record note made by the resident after discussion with my direction and input after the patient was personally seen and examined by me. I have reviewed the chart and agree that the record accurately reflects by personal performance of the history, physical exam, data review, and medical decision-making, in the course for the patient. I have also personally directed the plan of care.
[2018-01-09 07:52] LABS: BASO # 0.03 K/mm3 (0.0-2.0); BASO % 0.4 % (0.0-3.0); EOS # 0.4 (0.0-0.7); EOS % 6.6 % (1.5-5.0); GRAN # 3.85 (1.4-6.5); GRAN % 57.6 % (50.0-68.0); HEMOGLOBIN 10.3 g/dL (14.0-18.0); LYMPH # 1.9 (1.2-3.4); MEAN CELL VOLUME 89.5 fl (80.0-105.0); MEAN CORPUSCULAR HEMOGLOBIN 30.9 pg (25.0-35.0); MEAN CORPUSCULAR HGB CONC 34.6 g/dl (31.0-37.0); MEAN PLATELET VOLUME 9.1 fl (7.0-11.0); MONO # 0.4 (0.1-0.6); MONO % 6.4 % (1.0-6.0); RBC 3.33 10^6/uL (3.5-6.1); RED CELL DISTRIBUTION WIDTH 12.9 % (11.5-14.5); WHITE BLOOD COUNT 6.7 10^3/ul (4.5-11.0)
[2018-01-09] MEDS: Insulin Lispro (humaLOG) MEDIUM Coverage SC SCH ×4 (08:02→18:48)
[2018-01-09 08:05] LABS: BLOOD UREA NITROGEN 16 mg/dL (7-21); CALCIUM 8.5 mg/dL (8.4-10.5); GFR AFRICAN-AMERICAN > 60; GFR NON-AFRICAN AMERICAN 56
--- NOTE | 2018-01-09 13:00 | CP.PCM.PN ---
<Kenny Oh - Last Filed: 01/09/18 12:58> Subjective - Date & Time of Evaluation Date of Evaluation: 01/09/18 Time of Evaluation: 12:58 - Subjective Subjective: Patient seen and examined at bedside. No complaints at this time. Resting comfortably. Tolerating diet. No nausea or vomiting. No fevers or chills Objective - Vital Signs/Intake and Output Vital Signs (last 24 hours): Temp Pulse Resp BP Pulse Ox 97.6 F 61 20 137/72 98 01/09/18 07:00 01/09/18 09:05 01/09/18 07:00 01/09/18 09:05 01/09/18 07:00 Intake and Output: 01/09/18 01/09/18 06:59 18:59 Intake Total 900 Balance 900 - Medications Medications: Current Medications Acetaminophen (Tylenol 325mg Tab) 650 mg PO Q4H PRN PRN Reason: Pain, Mild (1-3) Amlodipine Besylate (Norvasc) 10 mg PO DAILY [facility] Last Admin: 01/09/18 09:05 Dose: 10 mg Ascorbic Acid (Vitamin C 500 Mg Tab) 500 mg PO DAILY [facility] Last Admin: 01/09/18 09:05 Dose: 500 mg Heparin Sodium (Porcine) (Heparin) 5,000 units SC Q8 [facility] Last Admin: 01/09/18 05:47 Dose: 5,000 units Insulin Human Lispro (Humalog Med) 0 units SC ACHS [facility] PRN Reason: Protocol Last Admin: 01/09/18 12:20 Dose: Not Given Linezolid (Zyvox) 600 mg PO Q12 [facility] PRN Reason: Protocol Last Admin: 01/09/18 09:05 Dose: 600 mg Lisinopril (Zestril) 20 mg PO DAILY [facility] Last Admin: 01/09/18 09:05 Dose: 20 mg Ondansetron HCl (Zofran Inj) 4 mg IVP ONCE PRN PRN Reason: Nausea/Vomiting Oxycodone/Acetaminophen (Percocet 5/325 Mg Tab) 1 tab PO Q4H PRN PRN Reason: Pain, moderate (4-7) Stop: 01/10/18 10:51 - Labs Labs: 01/09/18 07:00 01/09/18 07:00 PT 11.6 SECONDS (9.4-12.5) 01/06/18 14:00 INR 1.02 (0.93-1.08) 01/06/18 14:00 APTT 28.1 Seconds (25.1-36.5) 01/06/18 14:00 - Additional Findings Additional findings: - Constitutional Appears: Well - Head Exam Head Exam: ATRAUMATIC, NORMAL INSPECTION, NORMOCEPHALIC - Eye Exam Eye Exam: EOMI, Normal appearance, PERRL Pupil Exam: NORMAL ACCOMODATION, PERRL - ENT Exam ENT Exam: Mucous Membranes Moist, Normal Exam - Neck Exam Neck Exam: Full ROM, Normal Inspection. absent: Lymphadenopathy - Respiratory Exam Respiratory Exam: Clear to Ausculation Bilateral, NORMAL BREATHING PATTERN - Cardiovascular Exam Cardiovascular Exam: REGULAR RHYTHM, +S1, +S2. absent: Murmur - GI/Abdominal Exam GI & Abdominal Exam: Soft, Normal Bowel Sounds. absent: Distended, Tenderness - Extremities Exam Extremities Exam: absent: Joint Swelling, Pedal Edema Additional comments: L. 5 toe s/p amputation with non healing wound approx 1cm x 3cm with necrotic tissue present. No sensation to light touch on the feet bilaterally. Pulses 2+ DP and PT bilaterally. - Back Exam Back Exam: NORMAL INSPECTION - Neurological Exam Neurological Exam: Alert, Awake, CN II-XII Intact, Normal Gait, Oriented x3 - Psychiatric Exam Psychiatric exam: Normal Affect, Normal Mood - Skin Skin Exam: Dry, Intact, Normal Color, Warm Assessment and Plan - Assessment and Plan (Free Text) Assessment: (1) Amputated toe of left foot Assessment and Plan: Patient has non healing wound on L. 5th digit s/p amputation 2 weeks prior. Just finished 4 weeks of zyvox for osteo Pods (Jauregui) IR (Jack) ID (Gamal) - continue zyvox 600 PO Q12 s/p Left anterior tibial angioplasty for severe tibial and pedal occlusive disease possible debridment by podiatry tomorrow Status: Acute Priority: High (2) Diabetes mellitus, insulin dependent (IDDM), uncontrolled Assessment and Plan: A1c is 9.4 indicating compliance on his new insulin regimen as it has decreased since last admission Patient does not have a PMD despite having appointment set up for him [place] [facility] [place] prior admission. Spoke in great detail about having a primary care doctor to take care of his diabetes and the complications of having such uncontrolled disease. Instructed him to follow up with [facility] upon discharge as he lives in [place]. He and his expressed understanding. Will have clinic information provided to him on discharge. Status: Chronic Priority: High (3) HTN (hypertension) Assessment and Plan: Norvasc 10 PO QD Zestril 20 PO QD Status: Chronic Priority: High (4) Bradycardia Assessment and Plan: repeat EKG sinus malcolm (HR 57) TSH mild elevated @ 4.97 F/U free T4 Status: Chronic Priority: Medium - Assessment and Plan (Free Text) Assessment: Heparin SCD No GI ppx indicated Contact precautions - hx of MRSA <Arslan Bedoya - Last Filed: 01/09/18 14:20> Objective - Vital Signs/Intake and Output Vital Signs (last 24 hours): Temp Pulse Resp BP Pulse Ox 97.6 F 61 20 137/72 98 01/09/18 07:00 01/09/18 09:05 01/09/18 07:00 01/09/18 09:05 01/09/18 07:00 Intake and Output: 01/09/18 01/09/18 06:59 18:59 Intake Total 900 Balance 900 - Medications Medications: Current Medications Acetaminophen (Tylenol 325mg Tab) 650 mg PO Q4H PRN PRN Reason: Pain, Mild (1-3) Amlodipine Besylate (Norvasc) 10 mg PO DAILY [facility] Last Admin: 01/09/18 09:05 Dose: 10 mg Ascorbic Acid (Vitamin C 500 Mg Tab) 500 mg PO DAILY [facility] Last Admin: 01/09/18 09:05 Dose: 500 mg Heparin Sodium (Porcine) (Heparin) 5,000 units SC Q8 [facility] Last Admin: 01/09/18 05:47 Dose: 5,000 units Insulin Human Lispro (Humalog Med) 0 units SC ACHS [facility] PRN Reason: Protocol Last Admin: 01/09/18 12:20 Dose: Not Given Linezolid (Zyvox) 600 mg PO Q12 [facility] PRN Reason: Protocol Last Admin: 01/09/18 09:05 Dose: 600 mg Lisinopril (Zestril) 20 mg PO DAILY [facility] Last Admin: 01/09/18 09:05 Dose: 20 mg Ondansetron HCl (Zofran Inj) 4 mg IVP ONCE PRN PRN Reason: Nausea/Vomiting Oxycodone/Acetaminophen (Percocet 5/325 Mg Tab) 1 tab PO Q4H PRN PRN Reason: Pain, moderate (4-7) Stop: 01/10/18 10:51 - Labs Labs: 01/09/18 07:00 01/09/18 07:00 PT 11.6 SECONDS (9.4-12.5) 01/06/18 14:00 INR 1.02 (0.93-1.08) 01/06/18 14:00 APTT 28.1 Seconds (25.1-36.5) 01/06/18 14:00 Attending/Attestation - Attestation I have personally seen and examined this patient.: Yes I have fully participated in the care of the patient.: Yes I have reviewed all pertinent clinical information, including history, physical exam and plan: Yes Notes (Text): 01/09/18 14:19 Medical record note made by the resident after discussion with my direction and input after the patient was personally seen and examined by me. I have reviewed the chart and agree that the record accurately reflects by personal performance of the history, physical exam, data review, and medical decision-making, in the course for the patient. I have also personally directed the plan of care.
--- NOTE | 2018-01-09 13:22 | PN ---
DATE: 01/09/2018 SUBJECTIVE: The patient is in bed, in no acute distress, was seen earlier today. PHYSICAL EXAMINATION: VITAL SIGNS: Temperature is 97, blood pressure is 130/70, respiratory rate of 16. HEENT: Examination of HEENT is unremarkable. NECK: Supple. LUNGS: Have decreased breath sounds. HEART: Normal S1, S2. LUNGS: Soft, nontender. LABORATORY DATA: Laboratory examination reveals a white count of 6.7, hemoglobin of 10 and platelets of 169. Coagulation is noted and chemistries reveals a BUN of 16, creatinine of 1.3 and blood cultures are negative. ASSESSMENT AND PLAN: A 62-year-old male with diabetes mellitus, coronary artery disease, hypertension, diabetic neuropathy and left fifth toe amputation with an ulcer. Currently on Zyvox p.o. We will follow with you. Dada Dorsey MD
--- NOTE | 2018-01-09 13:33 | CP.PCM.PN ---
Subjective - Date & Time of Evaluation Date of Evaluation: 01/09/18 Time of Evaluation: 13:32 - Subjective Subjective: Podiatry progress note for Dr. Jauregui 62M seen at bedside for three ulcerations to left foot, one of which is s/p partial fifth ray resection. Patient is AAO x 3 and NAD, resting comfortably in bed. Denies any acute overnight events or any new pedal complaints. Denies any recent N/V/F/C/CP/SOB/D. Objective - Vital Signs/Intake and Output Vital Signs (last 24 hours): Temp Pulse Resp BP Pulse Ox 97.6 F 61 20 137/72 98 01/09/18 07:00 01/09/18 09:05 01/09/18 07:00 01/09/18 09:05 01/09/18 07:00 Intake and Output: 01/09/18 01/09/18 06:59 18:59 Intake Total 900 Balance 900 - Medications Medications: Current Medications Acetaminophen (Tylenol 325mg Tab) 650 mg PO Q4H PRN PRN Reason: Pain, Mild (1-3) Amlodipine Besylate (Norvasc) 10 mg PO DAILY [facility] Last Admin: 01/09/18 09:05 Dose: 10 mg Ascorbic Acid (Vitamin C 500 Mg Tab) 500 mg PO DAILY [facility] Last Admin: 01/09/18 09:05 Dose: 500 mg Heparin Sodium (Porcine) (Heparin) 5,000 units SC Q8 [facility] Last Admin: 01/09/18 05:47 Dose: 5,000 units Insulin Human Lispro (Humalog Med) 0 units SC ACHS [facility] PRN Reason: Protocol Last Admin: 01/09/18 12:20 Dose: Not Given Linezolid (Zyvox) 600 mg PO Q12 [facility] PRN Reason: Protocol Last Admin: 01/09/18 09:05 Dose: 600 mg Lisinopril (Zestril) 20 mg PO DAILY [facility] Last Admin: 01/09/18 09:05 Dose: 20 mg Ondansetron HCl (Zofran Inj) 4 mg IVP ONCE PRN PRN Reason: Nausea/Vomiting Oxycodone/Acetaminophen (Percocet 5/325 Mg Tab) 1 tab PO Q4H PRN PRN Reason: Pain, moderate (4-7) Stop: 01/10/18 10:51 - Labs Labs: 01/09/18 07:00 01/09/18 07:00 PT 11.6 SECONDS (9.4-12.5) 01/06/18 14:00 INR 1.02 (0.93-1.08) 01/06/18 14:00 APTT 28.1 Seconds (25.1-36.5) 01/06/18 14:00 - Constitutional Appears: Well, Non-toxic, No Acute Distress - Head Exam Head Exam: ATRAUMATIC, NORMOCEPHALIC - Extremities Exam Additional comments: LE focused exam: VASC: Right DP and PT pulses palpable. Left DP and PT pulses nonpalpable secondary to edema. CFT <3 seconds to all digits right foot and approx 3 sec to all digits on the left. Temperature gradient warm to cool from proximal to distal with mild increase in temperature on the left lateral foot DERM: LLE= Surgical site of 5th ray amputation is open with sutures intact to proximal end, jaida-incision area macerated with hyperpigmented skin changes on the proximal medial aspect of the incision site, no purulence, strong malodor; wound base is fibronecrotic measuring approximately 4 x 5 cm x .4 cm down to bone Superficial ulceration noted to the dorsum of the midfoot measuring approximately 2.5 cm x 3 cm x .1 with wound base mainly granular. No erythema, no streaking, no odor, no drainage, no tunneling, no other clinical signs of infection Ulceration noted to medial aspect of 1st met head measuring approximately 0.5 x 0.5 x 0.1 cm - noted to have a mixed granular/necrotic base and hyperkeratotic rim; no serosanguinous drainage present; no periwound erythema; no purulence; no fluctuance; no undermining; no tunneling, no probe to bone, no other clinical signs of infection RLE=WNL NEURO: Epicritic and protective sensation grossly diminished b/l ORTHO: No pain on palpation left medial 1st met head ulceration. no pain on palpation of the surgical site, Muscle strength 5/5 for all dorisflexors, plantarflexors, inverters, and everters b/l. - Neurological Exam Neurological Exam: Alert, Awake, Oriented x3 - Psychiatric Exam Psychiatric exam: Normal Affect, Normal Mood Assessment and Plan - Assessment and Plan (Free Text) Assessment: 62M seen at bedside for three ulcerations to left foot, one of which is infected and s/p partial fifth ray resection Plan: Patient seen and evaluated Plan discussed with attending Dr. Jauregui Afebrile, absent leukocytosis Continue IV abx per ID Wounds dressed with adaptic, ABD, DSD Per Dr. Jauregui, will try and take patient to OR on Wednesday for debridement of all nonviable tissue from necrotic wound Podiatry will continue to follow while patient in house
[2018-01-10] MEDS: Insulin Lispro (humaLOG) MEDIUM Coverage SC SCH ×5 (05:53→22:00)
[2018-01-10 07:03] LABS: BASO # 0.04 K/mm3 (0.0-2.0); BASO % 0.6 % (0.0-3.0); EOS # 0.5 (0.0-0.7); EOS % 6.7 % (1.5-5.0); GRAN # 3.85 (1.4-6.5); GRAN % 55.6 % (50.0-68.0); HEMOGLOBIN 10.4 g/dL (14.0-18.0); LYMPH # 2.1 (1.2-3.4); LYMPH % 30.4 % (22.0-35.0); MEAN CELL VOLUME 89.1 fl (80.0-105.0); MEAN CORPUSCULAR HEMOGLOBIN 31.4 pg (25.0-35.0); MEAN CORPUSCULAR HGB CONC 35.3 g/dl (31.0-37.0); MEAN PLATELET VOLUME 9.1 fl (7.0-11.0); MONO # 0.5 (0.1-0.6); MONO % 6.7 % (1.0-6.0); RBC 3.31 10^6/uL (3.5-6.1); RED CELL DISTRIBUTION WIDTH 12.9 % (11.5-14.5); WHITE BLOOD COUNT 6.9 10^3/ul (4.5-11.0)
[2018-01-10 07:30] LABS: BLOOD UREA NITROGEN 18 mg/dL (7-21); CALCIUM 8.5 mg/dL (8.4-10.5); GFR AFRICAN-AMERICAN > 60; GFR NON-AFRICAN AMERICAN > 60
--- NOTE | 2018-01-10 12:46 | PN ---
DATE: 01/10/2018 SUBJECTIVE: Patient is in bed, in no acute distress. PHYSICAL EXAMINATION: VITAL SIGNS: On exam, temperature is 98, blood pressure 160/70, respiratory rate of 18. HEENT: Unremarkable. NECK: Supple. LUNGS: Have decreased breath sounds. HEART: Normal S1, S2. ABDOMEN: Soft. LABORATORY EXAMINATION: Reveals a white count of 6.9, hemoglobin of 10. Coagulation is noted and chemistries reveals a BUN of 18, creatinine of 1.2. Blood cultures are negative. ASSESSMENT AND PLAN: A 62-year-old with diabetes mellitus, coronary artery disease, hypertension, diabetic neuropathy, left fifth toe amputation with an ulcer, on p.o. Zyvox. Dr. Puma Arellano's note is reviewed. Patient is status post partial fifth ray amputation resection. Review of orders reveals the patient to be on p.o. Zyvox. The patient did have methicillin-resistant staphylococcus aureus and the sensitive Staphylococcus from the foot cultures. Dada Dorsey MD
--- NOTE | 2018-01-10 15:10 | CP.PCM.PN ---
Subjective - Date & Time of Evaluation Date of Evaluation: 01/10/18 Time of Evaluation: 15:04 - Subjective Subjective: Podiatry progress note for Dr. Jauregui 62M seen at bedside for three ulcerations to left foot, one of which is s/p partial fifth ray resection. Patient is AAO x 3 and NAD, resting comfortably in bed. Denies any acute overnight events or any new pedal complaints. Denies any recent N/V/F/C/CP/SOB/D. Objective - Vital Signs/Intake and Output Vital Signs (last 24 hours): Temp Pulse Resp BP Pulse Ox 98.4 F 52 L 18 140/88 96 01/10/18 14:41 01/10/18 14:41 01/10/18 14:41 01/10/18 14:41 01/10/18 14:41 Intake and Output: 01/10/18 01/10/18 06:59 18:59 Intake Total 480 660 Balance 480 660 - Medications Medications: Current Medications Acetaminophen (Tylenol 325mg Tab) 650 mg PO Q4H PRN PRN Reason: Pain, Mild (1-3) Amlodipine Besylate (Norvasc) 10 mg PO DAILY [facility] Last Admin: 01/10/18 09:31 Dose: 10 mg Ascorbic Acid (Vitamin C 500 Mg Tab) 500 mg PO DAILY [facility] Last Admin: 01/10/18 09:30 Dose: 500 mg Heparin Sodium (Porcine) (Heparin) 5,000 units SC Q8 [facility] Last Admin: 01/10/18 13:48 Dose: 5,000 units Insulin Human Lispro (Humalog Med) 0 units SC ACHS [facility] PRN Reason: Protocol Last Admin: 01/10/18 12:05 Dose: 1 units Linezolid (Zyvox) 600 mg PO Q12 [facility] PRN Reason: Protocol Last Admin: 01/10/18 09:31 Dose: 600 mg Lisinopril (Zestril) 20 mg PO DAILY [facility] Last Admin: 01/10/18 09:30 Dose: 20 mg Ondansetron HCl (Zofran Inj) 4 mg IVP ONCE PRN PRN Reason: Nausea/Vomiting - Labs Labs: 01/10/18 06:00 01/10/18 06:00 PT 11.6 SECONDS (9.4-12.5) 01/06/18 14:00 INR 1.02 (0.93-1.08) 01/06/18 14:00 APTT 28.1 Seconds (25.1-36.5) 01/06/18 14:00 - Constitutional Appears: Well, Non-toxic, No Acute Distress - Head Exam Head Exam: ATRAUMATIC, NORMOCEPHALIC - Extremities Exam Additional comments: LE focused exam: VASC: Right DP and PT pulses palpable. Left DP and PT pulses nonpalpable secondary to edema. CFT <3 seconds to all digits right foot and approx 3 sec to all digits on the left. Temperature gradient warm to cool from proximal to distal with mild increase in temperature on the left lateral foot DERM: LLE= Surgical site of 5th ray amputation is open with sutures intact to proximal end, jaida-incision area macerated with hyperpigmented skin changes on the proximal medial aspect of the incision site, no purulence, strong malodor; wound base is fibronecrotic measuring approximately 4 x 5 cm x .4 cm down to bone Superficial ulceration noted to the dorsum of the midfoot measuring approximately 2.5 cm x 3 cm x .1 with wound base mainly granular. No erythema, no streaking, no odor, no drainage, no tunneling, no other clinical signs of infection Ulceration noted to medial aspect of 1st met head measuring approximately 0.5 x 0.5 x 0.1 cm - noted to have a mixed granular/necrotic base and hyperkeratotic rim. Approx 0.5 cc purulent drainage expressed from site today. No periwound erythema; no fluctuance; no undermining; no tunneling, no probe to bone, no other clinical signs of infection RLE=WNL NEURO: Epicritic and protective sensation grossly diminished b/l ORTHO: No pain on palpation left medial 1st met head ulceration. no pain on palpation of the surgical site, Muscle strength 5/5 for all dorisflexors, plantarflexors, inverters, and everters b/l. - Neurological Exam Neurological Exam: Alert, Awake, Oriented x3 - Psychiatric Exam Psychiatric exam: Normal Affect, Normal Mood Assessment and Plan - Assessment and Plan (Free Text) Assessment: 62M seen at bedside for three ulcerations to left foot. Patient to OR tomorrow for debridement of all nonviable tissue left foot Plan: Patient seen and evaluated Plan discussed with attending Dr. Jauregui Afebrile, absent leukocytosis Continue IV abx per ID Pt for OR tomorrow for debridement of all nonviable tissue left foot. Spoke with Dr. Bedoya who says that pt is medically optimized for surgery. Time of surgery TBD in AM Wounds dressed with adaptic, ABD, DSD Pt to be NPO except meds after midnight Heparin to be held after midnight Podiatry will continue to follow while patient in house
--- NOTE | 2018-01-10 15:24 | CP.PCM.PN ---
<Bryant Pries Sanjeev - Last Filed: 01/10/18 15:03> Subjective - Date & Time of Evaluation Date of Evaluation: 01/10/18 Time of Evaluation: 07:30 - Subjective Subjective: Medicine progress note: Dr. Bedoya Patient seen and examined at bedside. No acute events overnight. Patient states he is doing well and that his pain is well controlled. Objective - Vital Signs/Intake and Output Vital Signs (last 24 hours): Temp Pulse Resp BP Pulse Ox 98.4 F 52 L 18 140/88 96 01/10/18 14:41 01/10/18 14:41 01/10/18 14:41 01/10/18 14:41 01/10/18 14:41 Intake and Output: 01/10/18 01/10/18 06:59 18:59 Intake Total 480 660 Balance 480 660 - Medications Medications: Current Medications Acetaminophen (Tylenol 325mg Tab) 650 mg PO Q4H PRN PRN Reason: Pain, Mild (1-3) Amlodipine Besylate (Norvasc) 10 mg PO DAILY [facility] Last Admin: 01/10/18 09:31 Dose: 10 mg Ascorbic Acid (Vitamin C 500 Mg Tab) 500 mg PO DAILY [facility] Last Admin: 01/10/18 09:30 Dose: 500 mg Heparin Sodium (Porcine) (Heparin) 5,000 units SC Q8 [facility] Last Admin: 01/10/18 13:48 Dose: 5,000 units Insulin Human Lispro (Humalog Med) 0 units SC ACHS [facility] PRN Reason: Protocol Last Admin: 01/10/18 12:05 Dose: 1 units Linezolid (Zyvox) 600 mg PO Q12 [facility] PRN Reason: Protocol Last Admin: 01/10/18 09:31 Dose: 600 mg Lisinopril (Zestril) 20 mg PO DAILY [facility] Last Admin: 01/10/18 09:30 Dose: 20 mg Ondansetron HCl (Zofran Inj) 4 mg IVP ONCE PRN PRN Reason: Nausea/Vomiting - Labs Labs: 01/10/18 06:00 01/10/18 06:00 PT 11.6 SECONDS (9.4-12.5) 01/06/18 14:00 INR 1.02 (0.93-1.08) 01/06/18 14:00 APTT 28.1 Seconds (25.1-36.5) 01/06/18 14:00 - Constitutional Appears: Well - Head Exam Head Exam: ATRAUMATIC, NORMAL INSPECTION, NORMOCEPHALIC - Eye Exam Eye Exam: EOMI, Normal appearance, PERRL Pupil Exam: NORMAL ACCOMODATION, PERRL - ENT Exam ENT Exam: Mucous Membranes Moist, Normal Exam - Neck Exam Neck Exam: Full ROM, Normal Inspection. absent: Lymphadenopathy - Respiratory Exam Respiratory Exam: Clear to Ausculation Bilateral, NORMAL BREATHING PATTERN - Cardiovascular Exam Cardiovascular Exam: REGULAR RHYTHM, +S1, +S2. absent: Murmur - GI/Abdominal Exam GI & Abdominal Exam: Soft, Normal Bowel Sounds. absent: Tenderness - Extremities Exam Extremities Exam: Full ROM, Normal Capillary Refill, Normal Inspection. absent : Joint Swelling, Pedal Edema Additional comments: L. 5 toe s/p amputation with non healing wound approx 1cm x 3cm with necrotic tissue present. No sensation to light touch on the feet bilaterally. Pulses 2+ DP and PT bilaterally. - Back Exam Back Exam: NORMAL INSPECTION - Neurological Exam Neurological Exam: Alert, Awake, CN II-XII Intact, Normal Gait, Oriented x3 - Psychiatric Exam Psychiatric exam: Normal Affect, Normal Mood - Skin Skin Exam: Dry, Intact, Normal Color, Warm Assessment and Plan - Assessment and Plan (Free Text) Assessment: 62M with a PMH of uncontrolled DM, HTN and Hx of osteo of the L. 5th toe s/p amputation who comes to the ED with a CC of nonhealing wound after the L. toe amputation. Patient recently finished 4 weeks of Zyvox for osteomyelitis. Currently patient's vitals are stable, with no SIRS criteria. On this admission , patient was found to have decreasing Hg A1C, which indicates that he has been more compliant with his medications. Patient will need outpatient follow-up. Left 5th Toe Ulcer, Possibly 2/2 Uncontrolled IDDM VS Tibial and Pedal Occlusive Dz - Podiatry consult: Dr. Jauregui Patient for OR tomorrow - IR Consult: Dr. Jack - ID Consult: Dr. Yeung - NPO after midnight except medications; hold insulin after midnight; hold heparin after midnight Tibial and Pedal Occlussive Artery Disease - IR Consult: Dr. Jack - Tight glycemic control IDDM - Uncontrolled - Outpatient follow up - RISS HTN - Norvasc 10, Zestril 20 Bradycardia - No intervention at this time Prophylaxis - SCD and Heparin <Arslan Bedoya - Last Filed: 01/12/18 14:17> Objective - Vital Signs/Intake and Output Vital Signs (last 24 hours): Temp Pulse Resp BP Pulse Ox 98.4 F 65 20 142/79 96 01/12/18 06:00 01/12/18 09:38 01/12/18 06:00 01/12/18 09:38 01/12/18 06:00 Intake and Output: 01/12/18 01/12/18 06:59 18:59 Intake Total 720 Balance 720 - Medications Medications: Current Medications Amlodipine Besylate (Norvasc) 10 mg PO DAILY [facility] Last Admin: 01/12/18 09:38 Dose: 10 mg Ascorbic Acid (Vitamin C 500 Mg Tab) 500 mg PO DAILY [facility] Last Admin: 01/12/18 09:39 Dose: 500 mg Heparin Sodium (Porcine) (Heparin) 5,000 units SC Q8 [facility] Last Admin: 01/12/18 05:49 Dose: 5,000 units Insulin Human Lispro (Humalog Med) 0 units SC ACHS [facility] PRN Reason: Protocol Last Admin: 01/12/18 12:00 Dose: Not Given Linezolid (Zyvox) 600 mg PO Q12 [facility] PRN Reason: Protocol Last Admin: 01/12/18 09:38 Dose: 600 mg Lisinopril (Zestril) 20 mg PO DAILY [facility] Last Admin: 01/12/18 09:38 Dose: 20 mg Ondansetron HCl (Zofran Inj) 4 mg IVP ONCE PRN PRN Reason: Nausea/Vomiting Oxycodone/Acetaminophen (Percocet 5/325 Mg Tab) 1 tab PO Q4H PRN PRN Reason: Pain, moderate (4-7) Stop: 01/14/18 12:34 Oxycodone/Acetaminophen (Percocet 5/325 Mg Tab) 2 tab PO Q4H PRN PRN Reason: Pain, severe (8-10) Stop: 01/14/18 12:34 - Labs Labs: 01/11/18 07:00 01/11/18 07:00 PT 11.6 SECONDS (9.4-12.5) 01/06/18 14:00 INR 1.02 (0.93-1.08) 01/06/18 14:00 APTT 28.1 Seconds (25.1-36.5) 01/06/18 14:00 Attending/Attestation - Attestation I have personally seen and examined this patient.: Yes I have fully participated in the care of the patient.: Yes I have reviewed all pertinent clinical information, including history, physical exam and plan: Yes Notes (Text): 01/12/18 14:16 Medical record note made by the resident after discussion with my direction and input after the patient was personally seen and examined by me. I have reviewed the chart and agree that the record accurately reflects by personal performance of the history, physical exam, data review, and medical decision-making, in the course for the patient. I have also personally directed the plan of care.
[2018-01-11 07:15] LABS: BASO # 0.04 K/mm3 (0.0-2.0); BASO % 0.5 % (0.0-3.0); EOS # 0.5 (0.0-0.7); EOS % 6.3 % (1.5-5.0); GRAN # 4.61 (1.4-6.5); GRAN % 59.7 % (50.0-68.0); HEMOGLOBIN 10.7 g/dL (14.0-18.0); LYMPH # 2.1 (1.2-3.4); LYMPH % 27.7 % (22.0-35.0); MEAN CELL VOLUME 89.6 fl (80.0-105.0); MEAN CORPUSCULAR HEMOGLOBIN 31.8 pg (25.0-35.0); MEAN CORPUSCULAR HGB CONC 35.5 g/dl (31.0-37.0); MEAN PLATELET VOLUME 8.6 fl (7.0-11.0); MONO # 0.5 (0.1-0.6); MONO % 5.8 % (1.0-6.0); RBC 3.36 10^6/uL (3.5-6.1); RED CELL DISTRIBUTION WIDTH 13.1 % (11.5-14.5); WHITE BLOOD COUNT 7.7 10^3/ul (4.5-11.0)
[2018-01-11 07:28] LABS: BLOOD UREA NITROGEN 17 mg/dL (7-21); GFR AFRICAN-AMERICAN > 60; GFR NON-AFRICAN AMERICAN > 60
--- NOTE | 2018-01-11 11:11 | CP.PCM.PN ---
Subjective - Date & Time of Evaluation Date of Evaluation: 01/11/18 Time of Evaluation: 09:00 - Subjective Subjective: Podiatry Progress note for Dr. Jauregui 62M seen at bedside for three ulcerations to left foot, one of which is s/p partial fifth ray resection. Patient will go to the OR this AM for debridement of all nonviable soft tissue of the left foot ulcerations. Patient understands the benefits, risks, complications and alternatives and agreeable for surgery. Patient is AAO x 3 and NAD, resting comfortably in bed. Denies any acute overnight events or any new pedal complaints. Patient reports nothing to eat or drink since 9PM since last night. Denies any recent N/V/F/C/CP/SOB/D Objective - Vital Signs/Intake and Output Vital Signs (last 24 hours): Temp Pulse Resp BP Pulse Ox 97.9 F 52 L 18 133/83 96 01/11/18 09:50 01/11/18 09:50 01/11/18 09:50 01/11/18 09:50 01/11/18 09:50 Intake and Output: 01/11/18 01/11/18 06:59 18:59 Output Total 500 Balance -500 - Medications Medications: Current Medications Acetaminophen (Tylenol 325mg Tab) 650 mg PO Q4H PRN PRN Reason: Pain, Mild (1-3) Amlodipine Besylate (Norvasc) 10 mg PO DAILY [facility] Last Admin: 01/11/18 09:02 Dose: 10 mg Ascorbic Acid (Vitamin C 500 Mg Tab) 500 mg PO DAILY [facility] Last Admin: 01/10/18 09:30 Dose: 500 mg Heparin Sodium (Porcine) (Heparin) 5,000 units SC Q8 [facility] Last Admin: 01/10/18 21:04 Dose: 5,000 units Insulin Human Lispro (Humalog Med) 0 units SC ACHS [facility] PRN Reason: Protocol Last Admin: 01/10/18 22:00 Dose: Not Given Linezolid (Zyvox) 600 mg PO Q12 [facility] PRN Reason: Protocol Last Admin: 01/11/18 09:02 Dose: 600 mg Lisinopril (Zestril) 20 mg PO DAILY [facility] Last Admin: 01/11/18 09:02 Dose: 20 mg Ondansetron HCl (Zofran Inj) 4 mg IVP ONCE PRN PRN Reason: Nausea/Vomiting - Labs Labs: 01/11/18 07:00 01/11/18 07:00 PT 11.6 SECONDS (9.4-12.5) 01/06/18 14:00 INR 1.02 (0.93-1.08) 01/06/18 14:00 APTT 28.1 Seconds (25.1-36.5) 01/06/18 14:00 - Constitutional Appears: Well, Non-toxic, No Acute Distress - Extremities Exam Extremities Exam: absent: Calf Tenderness Additional comments: LE focused exam: VASC: Right DP and PT pulses palpable. Left DP and PT pulses nonpalpable secondary to edema. CFT <3 seconds to all digits right foot and approx 3 sec to all digits on the left. Temperature gradient warm to cool from proximal to distal with mild increase in temperature on the left lateral foot DERM: LLE= Surgical site of 5th ray amputation is open with sutures intact to proximal end, jaida-incision area macerated with hyperpigmented skin changes on the proximal medial aspect of the incision site, no purulence, strong malodor; wound base is fibronecrotic measuring approximately 4 x 5 cm x .4 cm down to bone Superficial ulceration noted to the dorsum of the midfoot measuring approximately 2.5 cm x 3 cm x .1 with wound base mainly granular. No erythema, no streaking, no odor, no drainage, no tunneling, no other clinical signs of infection Ulceration noted to medial aspect of 1st met head measuring approximately 0.5 x 0.5 x 0.1 cm - noted to have a mixed granular/necrotic base and hyperkeratotic rim. Approx 0.5 cc purulent drainage expressed from site today. No periwound erythema; no fluctuance; no undermining; no tunneling, no probe to bone, no other clinical signs of infection RLE=WNL NEURO: Epicritic and protective sensation grossly diminished b/l ORTHO: No pain on palpation left medial 1st met head ulceration. no pain on palpation of the surgical site, Muscle strength 5/5 for all dorisflexors, plantarflexors, inverters, and everters b/l. - Neurological Exam Neurological Exam: Alert, Awake, Oriented x3 - Psychiatric Exam Psychiatric exam: Normal Affect, Normal Mood Assessment and Plan - Assessment and Plan (Free Text) Assessment: 62M seen for three ulcerations to left foot, going to OR for debridement of all nonviable tissue left foot today Plan: Pt was seen and examined Pt NPO status was confirmed All Pre-op testing and clearance was in the chart Pt has exhausted all conservative treatment at this time and is opting for surgical intervention Pt was explained procedure and post-operative course All pt's questions were answered to satisfaction No guarantees were made Pt understands all risks, benefits and complications of procedure Will continue to follow patient while in house
[2018-01-11] MEDS ORDERED: Bupivacaine 0.5% Inj(30mL) ONE (11:15)
[2018-01-11] MEDS ORDERED: Lidocaine 1% Inj (20ml) ONE (11:15)
[2018-01-11] MEDS ORDERED: Propofol 10 mg/ml Inj (20 ML) ONE (11:29)
[2018-01-11] MEDS ORDERED: Lidocaine 2% Inj (20ml) ONE (11:30)
[2018-01-11] MEDS ORDERED: Midazolam 2 MG/2 ML VIAL ONE (11:30)
[2018-01-11] MEDS ORDERED: HYDROmorphone 0.5 mg/0.5 ml ISec IVP PRN (12:13)
[2018-01-11] MEDS ORDERED: Lactated Ringer's 1,000 ML IV SCH (12:15)
--- NOTE | 2018-01-11 12:29 | PCM.SURG1 ---
Surgeon's Initial Post Op Note - Surgeon's Notes Surgeon: Dr. Juventino WILSON Steel Floor Pan Placing Supervisor: Dr. SHANNON WILSON, Alex [id number] Type of Anesthesia: IV Sedation, Local Anesthesia Administered By: Dr. Cotton Pre-Operative Diagnosis: left foot nonhealing ulcerations Operative Findings: see dictation, injectables: 5 cc of 1:1 1% lidocaine plain and .5% marcaine plain Post-Operative Diagnosis: same Operation Performed: debridement of left foot nonhealing ulcerations including all nonviable soft tissue Specimen/Specimens Removed: nonviable soft tissue left foot Estimated Blood Loss: EBL {In ML}: 1 Blood Products Given: N/A Drains Used: No Drains Post-Op Condition: Good Date of Surgery/Procedure: 01/11/18 Time of Surgery/Procedure: 11:30
[2018-01-11] MEDS ORDERED: Oxycodone/Acetaminophen 5/325 mg Tab PO PRN ×2 (12:33)
--- NOTE | 2018-01-11 17:10 | CP.PCM.PN ---
<Kenny Oh - Last Filed: 01/11/18 17:06> Subjective - Date & Time of Evaluation Date of Evaluation: 01/11/18 Time of Evaluation: 17:06 - Subjective Subjective: Patient seen and examined at bedside. Tolerated procedure well. Possible wound vac. No complaints at this time. Objective - Vital Signs/Intake and Output Vital Signs (last 24 hours): Temp Pulse Resp BP Pulse Ox 97.9 F 53 L 16 112/62 94 L 01/11/18 14:00 01/11/18 14:00 01/11/18 14:00 01/11/18 14:00 01/11/18 14:00 Intake and Output: 01/11/18 01/11/18 06:59 18:59 Intake Total 300 Output Total 500 Balance -200 - Medications Medications: Current Medications Acetaminophen (Tylenol 325mg Tab) 650 mg PO Q4H PRN PRN Reason: Pain, Mild (1-3) Amlodipine Besylate (Norvasc) 10 mg PO DAILY [facility] Last Admin: 01/11/18 09:02 Dose: 10 mg Ascorbic Acid (Vitamin C 500 Mg Tab) 500 mg PO DAILY [facility] Last Admin: 01/10/18 09:30 Dose: 500 mg Heparin Sodium (Porcine) (Heparin) 5,000 units SC Q8 [facility] Last Admin: 01/10/18 21:04 Dose: 5,000 units Hydromorphone HCl (Dilaudid) 0.5 mg IVP Q15M PRN PRN Reason: Pain, moderate (4-7) Stop: 01/12/18 12:14 Insulin Human Lispro (Humalog Med) 0 units SC ACHS [facility] PRN Reason: Protocol Last Admin: 01/10/18 22:00 Dose: Not Given Linezolid (Zyvox) 600 mg PO Q12 [facility] PRN Reason: Protocol Last Admin: 01/11/18 09:02 Dose: 600 mg Lisinopril (Zestril) 20 mg PO DAILY [facility] Last Admin: 01/11/18 09:02 Dose: 20 mg Ondansetron HCl (Zofran Inj) 4 mg IVP ONCE PRN PRN Reason: Nausea/Vomiting Oxycodone/Acetaminophen (Percocet 5/325 Mg Tab) 1 tab PO Q4H PRN PRN Reason: Pain, moderate (4-7) Stop: 01/14/18 12:34 Oxycodone/Acetaminophen (Percocet 5/325 Mg Tab) 2 tab PO Q4H PRN PRN Reason: Pain, severe (8-10) Stop: 01/14/18 12:34 - Labs Labs: 01/11/18 07:00 01/11/18 07:00 PT 11.6 SECONDS (9.4-12.5) 01/06/18 14:00 INR 1.02 (0.93-1.08) 01/06/18 14:00 APTT 28.1 Seconds (25.1-36.5) 01/06/18 14:00 - Constitutional Appears: Well - Head Exam Head Exam: ATRAUMATIC, NORMAL INSPECTION, NORMOCEPHALIC - Eye Exam Eye Exam: EOMI, Normal appearance, PERRL Pupil Exam: NORMAL ACCOMODATION, PERRL - ENT Exam ENT Exam: Mucous Membranes Moist, Normal Exam - Neck Exam Neck Exam: Full ROM, Normal Inspection. absent: Lymphadenopathy - Respiratory Exam Respiratory Exam: Clear to Ausculation Bilateral, NORMAL BREATHING PATTERN - Cardiovascular Exam Cardiovascular Exam: REGULAR RHYTHM, +S1, +S2. absent: Murmur - GI/Abdominal Exam GI & Abdominal Exam: Soft, Normal Bowel Sounds. absent: Distended, Tenderness - Extremities Exam Extremities Exam: Full ROM, Normal Capillary Refill, Normal Inspection. absent : Joint Swelling, Pedal Edema - Back Exam Back Exam: NORMAL INSPECTION - Neurological Exam Neurological Exam: Alert, Awake, CN II-XII Intact, Normal Gait, Oriented x3 - Psychiatric Exam Psychiatric exam: Normal Affect, Normal Mood - Skin Skin Exam: Dry, Intact, Normal Color, Warm Assessment and Plan - Assessment and Plan (Free Text) Assessment: (1) Amputated toe of left foot Assessment and Plan: Patient has non healing wound on L. 5th digit s/p amputation 2 weeks prior. Just finished 4 weeks of zyvox for osteo Pods (Jauregui) IR (Jack) ID (Gamal) - continue zyvox 600 PO Q12 s/p Left anterior tibial angioplasty for severe tibial and pedal occlusive disease Debridement today in OR. Possible wound vac tomorrow Status: Acute Priority: High (2) Diabetes mellitus, insulin dependent (IDDM), uncontrolled Assessment and Plan: A1c is 9.4 indicating compliance on his new insulin regimen as it has decreased since last admission Patient does not have a PMD despite having [place] [facility] [place]. Spoke in great detail about having a primary care doctor to take care of his diabetes and the complications of having such uncontrolled disease. Instructed him to follow up with [facility] upon discharge as he lives in [place]. He and his expressed understanding. Will have clinic information provided to him on discharge. Status: Chronic Priority: High (3) HTN (hypertension) Assessment and Plan: Norvasc 10 PO QD Zestril 20 PO QD Status: Chronic Priority: High (4) Bradycardia Assessment and Plan: repeat EKG sinus malcolm (HR 57) TSH mild elevated @ 4.97 free T4 - 1.19 Status: Chronic Priority: Medium - Assessment and Plan (Free Text) Assessment: Heparin SCD No GI ppx indicated Contact precautions - hx of MRSA <Arslan Bedoya - Last Filed: 01/13/18 16:57> Objective - Vital Signs/Intake and Output Vital Signs (last 24 hours): Temp Pulse Resp BP Pulse Ox 98.4 F 88 20 135/60 96 01/13/18 06:00 01/13/18 09:14 01/13/18 06:00 01/13/18 09:14 01/13/18 06:00 Intake and Output: 01/13/18 01/13/18 06:59 18:59 Intake Total 980 Output Total 200 Balance 780 - Labs Labs: 01/11/18 07:00 01/11/18 07:00 PT 11.6 SECONDS (9.4-12.5) 01/06/18 14:00 INR 1.02 (0.93-1.08) 01/06/18 14:00 APTT 28.1 Seconds (25.1-36.5) 01/06/18 14:00 Attending/Attestation - Attestation I have personally seen and examined this patient.: Yes I have fully participated in the care of the patient.: Yes I have reviewed all pertinent clinical information, including history, physical exam and plan: Yes Notes (Text): 01/13/18 16:56 Medical record note made by the resident after discussion with my direction and input after the patient was personally seen and examined by me. I have reviewed the chart and agree that the record accurately reflects by personal performance of the history, physical exam, data review, and medical decision-making, in the course for the patient. I have also personally directed the plan of care. 62 years old male with PMH DM,HTN,PVD,SP left anterior tibial A angioplasty with ,SP 5th ray resection with infected ulcerations to left foot,he is schedule for Debridement today in OR.We will follow up with Podiatry about salvage determiner plan after wound debridement.
[2018-01-11] MEDS: Insulin Lispro (humaLOG) MEDIUM Coverage SC SCH (21:32)
--- NOTE | 2018-01-12 02:26 | PN ---
DATE: 01/11/2018 SUBJECTIVE: Patient is in bed, in no acute distress, nontoxic. PHYSICAL EXAMINATION: VITAL SIGNS: Temperature is 97, blood pressure is 112/60, respiratory rate of 18, heart rate of 53. HEENT: Unremarkable. NECK: Supple. LUNGS: Have decreased breath sounds. HEART: Normal S1 and S2. ABDOMEN: Soft. LABORATORY DATA: Reveals a white count of 7.7. Chemistries are noted. BUN of 17, creatinine of 1.2. Microbiology reveals the blood cultures are negative. Review of orders reveals the patient to be on p.o. Zyvox. ASSESSMENT AND PLAN: This is a 62-year-old male, was seen earlier this morning, with diabetes mellitus, coronary artery disease, hypertension, diabetic neuropathy, left fifth toe amputation with an ulcer, on p.o. Zyvox, and the patient did have methicillin-resistant Staphylococcus aureus in cultures and patient for surgery today for debridement of all nonviable tissues of the left foot. We will check on today's OR cultures and continue Zyvox at this time. Dada Dorsey MD
[2018-01-12] MEDS: Insulin Lispro (humaLOG) MEDIUM Coverage SC SCH ×3 (07:54→17:17)
--- NOTE | 2018-01-12 10:43 | CP.PCM.PN ---
Subjective - Date & Time of Evaluation Date of Evaluation: 01/12/18 Time of Evaluation: 10:58 - Subjective Subjective: Podiatry Progress note for Dr. Jauregui 62M seen and examined at bedside s/p left anterior tibial angioplasty for severe tibial and pedal occulsive disease and POD #1 of debridement of all nonviable soft tissue of left foot ulcerations. Patient is AAO x 3 and NAD, resting comfortably in bed. Denies any acute overnight events or any new pedal complaints. Reports no pain to the lower extremity. Denies any recent N/V/F/C/CP /SOB/D. No new pedal complaints. Objective - Vital Signs/Intake and Output Vital Signs (last 24 hours): Temp Pulse Resp BP Pulse Ox 98.4 F 65 20 142/79 96 01/12/18 06:00 01/12/18 09:38 01/12/18 06:00 01/12/18 09:38 01/12/18 06:00 Intake and Output: 01/12/18 01/12/18 06:59 18:59 Intake Total 720 Balance 720 - Medications Medications: Current Medications Amlodipine Besylate (Norvasc) 10 mg PO DAILY [facility] Last Admin: 01/12/18 09:38 Dose: 10 mg Ascorbic Acid (Vitamin C 500 Mg Tab) 500 mg PO DAILY [facility] Last Admin: 01/12/18 09:39 Dose: 500 mg Heparin Sodium (Porcine) (Heparin) 5,000 units SC Q8 [facility] Last Admin: 01/12/18 05:49 Dose: 5,000 units Hydromorphone HCl (Dilaudid) 0.5 mg IVP Q15M PRN PRN Reason: Pain, moderate (4-7) Stop: 01/12/18 12:14 Insulin Human Lispro (Humalog Med) 0 units SC ACHS [facility] PRN Reason: Protocol Last Admin: 01/12/18 07:54 Dose: Not Given Linezolid (Zyvox) 600 mg PO Q12 [facility] PRN Reason: Protocol Last Admin: 01/12/18 09:38 Dose: 600 mg Lisinopril (Zestril) 20 mg PO DAILY [facility] Last Admin: 01/12/18 09:38 Dose: 20 mg Ondansetron HCl (Zofran Inj) 4 mg IVP ONCE PRN PRN Reason: Nausea/Vomiting Oxycodone/Acetaminophen (Percocet 5/325 Mg Tab) 1 tab PO Q4H PRN PRN Reason: Pain, moderate (4-7) Stop: 01/14/18 12:34 Oxycodone/Acetaminophen (Percocet 5/325 Mg Tab) 2 tab PO Q4H PRN PRN Reason: Pain, severe (8-10) Stop: 01/14/18 12:34 - Labs Labs: 01/11/18 07:00 01/11/18 07:00 PT 11.6 SECONDS (9.4-12.5) 01/06/18 14:00 INR 1.02 (0.93-1.08) 01/06/18 14:00 APTT 28.1 Seconds (25.1-36.5) 01/06/18 14:00 - Constitutional Appears: Well, Non-toxic, No Acute Distress - Extremities Exam Extremities Exam: absent: Calf Tenderness Additional comments: LE focused exam: VASC: Right DP and PT pulses palpable. Left DP and PT pulses nonpalpable secondary to edema. CFT <3 seconds to all digits right foot and approx 3 sec to all digits on the left. Temperature gradient warm to cool from proximal to distal with mild increase in temperature on the left lateral foot DERM: LLE= Surgical site of 5th ray amputation is open with 20% granular tissue and 80 % fibrous tissue, fibrous tissue healthier in appearance s/p debridement with Versajet, no purulence, no drainage, malodor remains present (slightly improved since OR). Wound ulceration measuring approximately 4 x 5 cm x 2 cm down to tendons with periosteum covering bone Superficial ulceration noted to the dorsum of the midfoot measuring approximately 2.5 cm x 3 cm x .1 with wound base mainly granular. No erythema, no streaking, no odor, no drainage, no tunneling, no other clinical signs of infection Ulceration noted to medial aspect of 1st met head measuring approximately 0.5 x 0.5 x 0.1 cm - noted with 80% granular tissue and intact rim. No drainaged expressed from site today. No periwound erythema; no fluctuance; no undermining ; no tunneling, no probe to bone, no other clinical signs of infection RLE=WNL NEURO: Epicritic and protective sensation grossly diminished b/l ORTHO: No pain on palpation left medial 1st met head ulceration. no pain on palpation of the surgical site, Muscle strength 5/5 for all dorisflexors, plantarflexors, inverters, and everters b/l. - Neurological Exam Neurological Exam: Alert, Awake, Oriented x3 - Psychiatric Exam Psychiatric exam: Normal Affect, Normal Mood Assessment and Plan - Assessment and Plan (Free Text) Assessment: 62M s/p left anterior tibial angioplasty for severe tibial and pedal occulsive disease and POD #1 of debridement of all nonviable soft tissue of left foot ulcerations. Plan: Patient examined and evaluated Discussed plan with attending Dr. Jauregui Afebrile, absent leukocytosis Spoke to case picker, will see if patient can be d/c with wound VAC therapy If patient can not get wound vac, keep dressing c/d/i Ulcerations cleansed with saline and betadine, dressed with betadine w2d and kerlix Patient can WBAT in surgical shoe to the heel Patient will follow up with Dr. Jauregui in wound care clinic Please call for an appointment Explained to patient must change dressing daily. Clean ulcerations with saline solution, dressed with betadine soaked gauze,4x4 and kerlix. Patient to f/u as an outpatient.
--- NOTE | 2018-01-12 17:08 | CP.PCM.PN ---
<Kenny Oh - Last Filed: 01/12/18 17:04> Subjective - Date & Time of Evaluation Date of Evaluation: 01/12/18 Time of Evaluation: 17:04 - Subjective Subjective: Patient seen and examined at bedside. Doing well with no complaints at this time. Seen by podiatry. No fevers or chills. No nausea or vomiting. Tolerating diet. Ambulating with assistance. Objective - Vital Signs/Intake and Output Vital Signs (last 24 hours): Temp Pulse Resp BP Pulse Ox 99 F 58 L 20 119/73 95 01/12/18 14:00 01/12/18 14:00 01/12/18 14:00 01/12/18 14:00 01/12/18 14:00 Intake and Output: 01/12/18 01/12/18 06:59 18:59 Intake Total 720 480 Output Total 600 Balance 720 -120 - Medications Medications: Current Medications Amlodipine Besylate (Norvasc) 10 mg PO DAILY [facility] Last Admin: 01/12/18 09:38 Dose: 10 mg Ascorbic Acid (Vitamin C 500 Mg Tab) 500 mg PO DAILY [facility] Last Admin: 01/12/18 09:39 Dose: 500 mg Heparin Sodium (Porcine) (Heparin) 5,000 units SC Q8 [facility] Last Admin: 01/12/18 14:49 Dose: 5,000 units Insulin Human Lispro (Humalog Med) 0 units SC ACHS [facility] PRN Reason: Protocol Last Admin: 01/12/18 12:00 Dose: Not Given Linezolid (Zyvox) 600 mg PO Q12 [facility] PRN Reason: Protocol Last Admin: 01/12/18 09:38 Dose: 600 mg Lisinopril (Zestril) 20 mg PO DAILY [facility] Last Admin: 01/12/18 09:38 Dose: 20 mg Ondansetron HCl (Zofran Inj) 4 mg IVP ONCE PRN PRN Reason: Nausea/Vomiting Oxycodone/Acetaminophen (Percocet 5/325 Mg Tab) 1 tab PO Q4H PRN PRN Reason: Pain, moderate (4-7) Stop: 01/14/18 12:34 Oxycodone/Acetaminophen (Percocet 5/325 Mg Tab) 2 tab PO Q4H PRN PRN Reason: Pain, severe (8-10) Stop: 01/14/18 12:34 - Labs Labs: 01/11/18 07:00 01/11/18 07:00 PT 11.6 SECONDS (9.4-12.5) 01/06/18 14:00 INR 1.02 (0.93-1.08) 01/06/18 14:00 APTT 28.1 Seconds (25.1-36.5) 01/06/18 14:00 - Constitutional Appears: Well - Head Exam Head Exam: ATRAUMATIC, NORMAL INSPECTION, NORMOCEPHALIC - Eye Exam Eye Exam: EOMI, Normal appearance, PERRL Pupil Exam: NORMAL ACCOMODATION, PERRL - ENT Exam ENT Exam: Mucous Membranes Moist, Normal Exam - Neck Exam Neck Exam: Full ROM, Normal Inspection. absent: Lymphadenopathy - Respiratory Exam Respiratory Exam: Clear to Ausculation Bilateral, NORMAL BREATHING PATTERN - Cardiovascular Exam Cardiovascular Exam: REGULAR RHYTHM, +S1, +S2. absent: Murmur - GI/Abdominal Exam GI & Abdominal Exam: Soft, Normal Bowel Sounds. absent: Tenderness - Extremities Exam Extremities Exam: Full ROM, Normal Capillary Refill. absent: Joint Swelling, Pedal Edema Additional comments: DP and TP pulses 2+ b/l. Dressing on Right 5 toe c/d/i - Back Exam Back Exam: NORMAL INSPECTION - Neurological Exam Neurological Exam: Alert, Awake, CN II-XII Intact, Normal Gait, Oriented x3 Neuro motor strength exam: Left Upper Extremity: 5, Right Upper Extremity: 5, Left Lower Extremity: 5, Right Lower Extremity: 5 - Psychiatric Exam Psychiatric exam: Normal Affect, Normal Mood - Skin Skin Exam: Dry, Intact, Normal Color, Warm Assessment and Plan - Assessment and Plan (Free Text) Assessment: (1) Amputated toe of left foot Assessment and Plan: Patient has non healing wound on L. 5th digit s/p amputation 2 weeks prior. Just finished 4 weeks of zyvox for osteo Pods (Jauregui) IR (Jack) ID (Gamal) - continue zyvox 600 PO Q12 s/p Left anterior tibial angioplasty for severe tibial and pedal occlusive disease likely d/c tomorrow with daily wound dressing and follow up with podiatry. Follow up cultures. Status: Acute Priority: High (2) Diabetes mellitus, insulin dependent (IDDM), uncontrolled Assessment and Plan: A1c is 9.4 indicating compliance on his new insulin regimen as it has decreased since last admission Patient does not have a PMD despite having [place] [facility] [place]. Spoke in great detail about having a primary care doctor to take care of his diabetes and the complications of having such uncontrolled disease. Instructed him to follow up with [facility] upon discharge as he lives in [place]. He and his expressed understanding. Will have clinic information provided to him on discharge. Status: Chronic Priority: High (3) HTN (hypertension) Assessment and Plan: Norvasc 10 PO QD Zestril 20 PO QD Status: Chronic Priority: High (4) Bradycardia Assessment and Plan: repeat EKG sinus malcolm (HR 57) TSH mild elevated @ 4.97 free T4 - 1.19 Status: Chronic Priority: Medium - Assessment and Plan (Free Text) Assessment: Heparin SCD No GI ppx indicated Contact precautions - hx of MRSA <Arslan Bedoya - Last Filed: 01/13/18 16:58> Objective - Vital Signs/Intake and Output Vital Signs (last 24 hours): Temp Pulse Resp BP Pulse Ox 98.4 F 88 20 135/60 96 01/13/18 06:00 01/13/18 09:14 01/13/18 06:00 01/13/18 09:14 01/13/18 06:00 Intake and Output: 01/13/18 01/13/18 06:59 18:59 Intake Total 980 Output Total 200 Balance 780 - Labs Labs: 01/11/18 07:00 01/11/18 07:00 PT 11.6 SECONDS (9.4-12.5) 01/06/18 14:00 INR 1.02 (0.93-1.08) 01/06/18 14:00 APTT 28.1 Seconds (25.1-36.5) 01/06/18 14:00 Attending/Attestation - Attestation I have personally seen and examined this patient.: Yes I have fully participated in the care of the patient.: Yes I have reviewed all pertinent clinical information, including history, physical exam and plan: Yes Notes (Text): 01/13/18 16:58 Medical record note made by the resident after discussion with my direction and input after the patient was personally seen and examined by me. I have reviewed the chart and agree that the record accurately reflects by personal performance of the history, physical exam, data review, and medical decision-making, in the course for the patient. I have also personally directed the plan of care.
--- NOTE | 2018-01-12 22:10 | CP.PCM.PN ---
Subjective - Date & Time of Evaluation Date of Evaluation: 01/12/18 Time of Evaluation: 11:40 - Subjective Subjective: Comfortable, no fevers. Objective - Vital Signs/Intake and Output Vital Signs (last 24 hours): Temp Pulse Resp BP Pulse Ox 98.4 F 65 20 142/79 96 01/12/18 06:00 01/12/18 09:38 01/12/18 06:00 01/12/18 09:38 01/12/18 06:00 Intake and Output: 01/12/18 01/12/18 06:59 18:59 Intake Total 720 Balance 720 - Medications Medications: Current Medications Amlodipine Besylate (Norvasc) 10 mg PO DAILY [facility] Last Admin: 01/12/18 09:38 Dose: 10 mg Ascorbic Acid (Vitamin C 500 Mg Tab) 500 mg PO DAILY [facility] Last Admin: 01/12/18 09:39 Dose: 500 mg Heparin Sodium (Porcine) (Heparin) 5,000 units SC Q8 [facility] Last Admin: 01/12/18 05:49 Dose: 5,000 units Hydromorphone HCl (Dilaudid) 0.5 mg IVP Q15M PRN PRN Reason: Pain, moderate (4-7) Stop: 01/12/18 12:14 Insulin Human Lispro (Humalog Med) 0 units SC ACHS [facility] PRN Reason: Protocol Last Admin: 01/12/18 07:54 Dose: Not Given Linezolid (Zyvox) 600 mg PO Q12 [facility] PRN Reason: Protocol Last Admin: 01/12/18 09:38 Dose: 600 mg Lisinopril (Zestril) 20 mg PO DAILY [facility] Last Admin: 01/12/18 09:38 Dose: 20 mg Ondansetron HCl (Zofran Inj) 4 mg IVP ONCE PRN PRN Reason: Nausea/Vomiting Oxycodone/Acetaminophen (Percocet 5/325 Mg Tab) 1 tab PO Q4H PRN PRN Reason: Pain, moderate (4-7) Stop: 01/14/18 12:34 Oxycodone/Acetaminophen (Percocet 5/325 Mg Tab) 2 tab PO Q4H PRN PRN Reason: Pain, severe (8-10) Stop: 01/14/18 12:34 - Labs Labs: 01/11/18 07:00 01/11/18 07:00 PT 11.6 SECONDS (9.4-12.5) 01/06/18 14:00 INR 1.02 (0.93-1.08) 01/06/18 14:00 APTT 28.1 Seconds (25.1-36.5) 01/06/18 14:00 - Constitutional Appears: Chronically Ill - Head Exam Head Exam: NORMAL INSPECTION - ENT Exam ENT Exam: Mucous Membranes Moist - Neck Exam Neck Exam: absent: Meningismus - Respiratory Exam Respiratory Exam: Decreased Breath Sounds - Cardiovascular Exam Cardiovascular Exam: +S1, +S2 - GI/Abdominal Exam GI & Abdominal Exam: Soft. 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
[2018-01-12 22:15] VITALS: TEMP 98.4; O2SAT 96
[2018-01-13] MEDS: Insulin Lispro (humaLOG) MEDIUM Coverage SC SCH ×3 (01:18→11:36)
[2018-01-13 09:15] VITALS: RESP 20
[2018-01-13 09:20] VITALS: BP 135/60; PULSE 88
--- NOTE | 2018-01-13 10:42 | CP.PCM.PN ---
Subjective - Date & Time of Evaluation Date of Evaluation: 01/13/18 Time of Evaluation: 10:38 - Subjective Subjective: Podiatry Progress note for Dr. Jauregui 62M seen and examined at bedside s/p left anterior tibial angioplasty for severe tibial and pedal occulsive disease and POD #2 of debridement of all nonviable soft tissue of left foot ulcerations. Patient is AAO x 3 and NAD, resting comfortably in bed. Denies any acute overnight events or any new pedal complaints. Reports he is doing well. Reports no pain to the lower extremity. Denies any recent N/V/F/C/CP/SOB/D. No new pedal complaints. Objective - Vital Signs/Intake and Output Vital Signs (last 24 hours): Temp Pulse Resp BP Pulse Ox 98.4 F 88 20 135/60 96 01/13/18 06:00 01/13/18 09:14 01/13/18 06:00 01/13/18 09:14 01/13/18 06:00 Intake and Output: 01/13/18 01/13/18 06:59 18:59 Intake Total 980 Output Total 200 Balance 780 - Medications Medications: Current Medications Amlodipine Besylate (Norvasc) 10 mg PO DAILY [facility] Last Admin: 01/13/18 09:14 Dose: 10 mg Ascorbic Acid (Vitamin C 500 Mg Tab) 500 mg PO DAILY [facility] Last Admin: 01/13/18 09:14 Dose: 500 mg Heparin Sodium (Porcine) (Heparin) 5,000 units SC Q8 [facility] Last Admin: 01/13/18 05:32 Dose: 5,000 units Insulin Human Lispro (Humalog Med) 0 units SC ACHS [facility] PRN Reason: Protocol Last Admin: 01/13/18 09:12 Dose: Not Given Linezolid (Zyvox) 600 mg PO Q12 [facility] PRN Reason: Protocol Last Admin: 01/13/18 09:14 Dose: 600 mg Lisinopril (Zestril) 20 mg PO DAILY [facility] Last Admin: 01/13/18 09:14 Dose: 20 mg Ondansetron HCl (Zofran Inj) 4 mg IVP ONCE PRN PRN Reason: Nausea/Vomiting Oxycodone/Acetaminophen (Percocet 5/325 Mg Tab) 1 tab PO Q4H PRN PRN Reason: Pain, moderate (4-7) Stop: 01/14/18 12:34 Oxycodone/Acetaminophen (Percocet 5/325 Mg Tab) 2 tab PO Q4H PRN PRN Reason: Pain, severe (8-10) Stop: 01/14/18 12:34 - Labs Labs: 01/11/18 07:00 01/11/18 07:00 PT 11.6 SECONDS (9.4-12.5) 01/06/18 14:00 INR 1.02 (0.93-1.08) 01/06/18 14:00 APTT 28.1 Seconds (25.1-36.5) 01/06/18 14:00 - Constitutional Appears: Well, Non-toxic, No Acute Distress - Extremities Exam Extremities Exam: absent: Calf Tenderness Additional comments: LE focused exam: VASC: Right DP and PT pulses palpable. Left DP and PT pulses nonpalpable secondary to edema. CFT <3 seconds to all digits right foot and approx 3 sec to all digits on the left. Temperature gradient warm to cool from proximal to distal with mild increase in temperature on the left lateral foot DERM: LLE= Surgical site of 5th ray amputation is open with 25% granular tissue and 75 % fibrous tissue, fibrous tissue healthier in appearance s/p debridement with Versajet, no purulence, no drainage, malodor remains present (slightly improved since OR). Wound ulceration measuring approximately 4 x 5 cm x 1.5 cm down to tendons with periosteum covering bone Superficial ulceration noted to the dorsum of the midfoot measuring approximately 2 cm x 3 cm x .1 with wound base mainly granular. Epithelization noted.. No erythema, no streaking, no odor, no drainage, no tunneling, no other clinical signs of infection. Ulceration noted to medial aspect of 1st met head measuring approximately 0.5 x 0.5 x 0.1 cm - noted with 80% granular tissue and intact rim. No drainaged expressed from site today. No periwound erythema; no fluctuance; no undermining ; no tunneling, no probe to bone, no other clinical signs of infection RLE=WNL NEURO: Epicritic and protective sensation grossly diminished b/l ORTHO: No pain on palpation left medial 1st met head ulceration. no pain on palpation of the surgical site, Muscle strength 5/5 for all dorisflexors, plantarflexors, inverters, and everters b/l. - Neurological Exam Neurological Exam: Alert, Awake, Oriented x3 - Psychiatric Exam Psychiatric exam: Normal Affect, Normal Mood Assessment and Plan - Assessment and Plan (Free Text) Assessment: 62M s/p left anterior tibial angioplasty for severe tibial and pedal occulsive disease and POD #2 of debridement of all nonviable soft tissue of left foot ulcerations. Plan: Patient examined and evaluated Discussed plan with attending Dr. Jauregui Afebrile, absent leukocytosis Unable to obtain Wound VAC Ulcerations cleansed with saline and betadine, dressed with betadine w2d and kerlix Patient can WBAT in surgical shoe to the heel Patient will follow up with Dr. Jauregui in wound care clinic Please call for an appointment Explained to patient must change dressing daily. Clean ulcerations with saline solution, dressed with betadine soaked gauze,4x4 and kerlix. Patient understands Patient stable per podiatry standpoint Patient to f/u as an outpatient.
--- NOTE | 2018-01-13 13:26 | CP.PCM.DIS ---
<Kenny Oh - Last Filed: 01/13/18 13:19> Provider - Provider Date of Admission: 01/08/18 14:30 Attending physician: Arslan Bedoya MD Consults: ID: [id number] Pods: Juventino IR: Guero Time Spent in preparation of Discharge (in minutes): 45 Hospital Course - Lab Results Lab Results: Most Recent Lab Values WBC 7.7 10^3/ul (4.5-11.0) 01/11/18 07:00 RBC 3.36 10^6/uL (3.5-6.1) L 01/11/18 07:00 Hgb 10.7 g/dL (14.0-18.0) L 01/11/18 07:00 Hct 30.1 % (42.0-52.0) L 01/11/18 07:00 MCV 89.6 fl (80.0-105.0) 01/11/18 07:00 MCH 31.8 pg (25.0-35.0) 01/11/18 07:00 MCHC 35.5 g/dl (31.0-37.0) 01/11/18 07:00 RDW 13.1 % (11.5-14.5) 01/11/18 07:00 Plt Count 203 10^3/uL (120.0-450.0) 01/11/18 07:00 MPV 8.6 fl (7.0-11.0) 01/11/18 07:00 Gran % 59.7 % (50.0-68.0) 01/11/18 07:00 Lymph % (Auto) 27.7 % (22.0-35.0) 01/11/18 07:00 [place] % (Auto) 5.8 % (1.0-6.0) 01/11/18 07:00 Eos % (Auto) 6.3 % (1.5-5.0) H 01/11/18 07:00 Baso % (Auto) 0.5 % (0.0-3.0) 01/11/18 07:00 Gran # 4.61 (1.4-6.5) 01/11/18 07:00 Lymph # (Auto) 2.1 (1.2-3.4) 01/11/18 07:00 [place] # (Auto) 0.5 (0.1-0.6) 01/11/18 07:00 Eos # (Auto) 0.5 (0.0-0.7) 01/11/18 07:00 Baso # (Auto) 0.04 K/mm3 (0.0-2.0) 01/11/18 07:00 ESR 65 mm/hr (0.00-15.0) H 01/08/18 07:30 PT 11.6 SECONDS (9.4-12.5) 01/06/18 14:00 INR 1.02 (0.93-1.08) 01/06/18 14:00 APTT 28.1 Seconds (25.1-36.5) 01/06/18 14:00 Sodium 141 mmol/L (132-148) 01/11/18 07:00 Potassium 4.7 mmol/L (3.6-5.0) 01/11/18 07:00 Chloride 103 mmol/L (98-107) 01/11/18 07:00 Carbon Dioxide 27 mmol/L (21-33) 01/11/18 07:00 Anion Gap 16 (10-20) 01/11/18 07:00 BUN 17 mg/dL (7-21) 01/11/18 07:00 Creatinine 1.2 mg/dl (0.8-1.5) 01/11/18 07:00 Est GFR ( Amer) > 60 01/11/18 07:00 Est GFR (Non-Af Amer) > 60 01/11/18 07:00 POC Glucose (mg/dL) 153 mg/dL (65-110) H 01/13/18 06:36 Random Glucose 175 mg/dL (70-110) H 01/11/18 07:00 Hemoglobin A1c 9.4 % (4.2-6.5) H 01/07/18 07:15 Calcium 9.0 mg/dL (8.4-10.5) 01/11/18 07:00 Phosphorus 4.1 mg/dL (2.5-4.5) 01/07/18 07:15 Magnesium 2.0 mg/dL (1.7-2.2) 01/07/18 07:15 Total Bilirubin 0.5 mg/dL (0.2-1.3) 01/07/18 11:30 AST 20 U/L (17-59) 01/07/18 11:30 ALT 30 U/L (7-56) 01/07/18 11:30 Alkaline Phosphatase 61 U/L (38-126) 01/07/18 11:30 C-Reactive Protein 67.80 mg/L (0.0-9.9) H 01/08/18 07:30 Total Protein 6.2 g/dL (5.8-8.3) 01/07/18 11:30 Albumin 3.4 g/dL (3.0-4.8) 01/07/18 11:30 Globulin 2.9 gm/dL 01/07/18 11:30 Albumin/Globulin Ratio 1.2 (1.1-1.8) 01/07/18 11:30 Free T4 1.19 ng/dL (0.78-2.19) 01/09/18 07:00 Thyroxine (T4) 4.3 ug/dL (5.5-11.0) L 01/07/18 07:15 TSH 3rd Generation 4.97 mIU/mL (0.46-4.68) H 01/07/18 07:15 - Hospital Course Hospital Course: On admission: Patient is a 62M with a PMH of uncontrolled DM, HTN and Hx of osteo of the L. 5th toe s/p amputation who comes to the ED with a CC of nonhealing wound after the L. toe amputation. Patient had the toe amputated two weeks ago with Dr. Jauregui and has been seeing him regularly. Patient states that Dr. Jauregui did not think the wound was healing appropriately so had him see Dr. Jack. Dr. Jack told the patient to go to the emergency room as he made need CTA to evaluate blood supply to the extremity as a cause for the non healing wound. He states he has been taking his insulin as directed but has not seen a primary care doctor despite being advised and given an appointment [place] [facility] He denies any fevers or chills and has completed a 1 month course of Zyvox. He also complains of numbness at the plantar aspect of both feet. No other complaints at this time. Hospital Course: Had angioplasty of the L. anterior tibial a. by Dr. Jack. Went for further debridment of L. 5th toe by Dr. Jauregui. Was started on Zyvox for an additional 2 weeks. Instructed for daily dressing changes and have appointment with Dr. Jauregui. Also instructed to follow up at [facility] as he needs a regular doctor to take care of his DM and HTN. He was on ISS while in the hospital but instructed to continue his Metformin 500 PO BID and Levemir 8 units HS as outpatient. Discharge Exam - Head Exam Head Exam: NORMAL INSPECTION - Additional Findings Additional findings: - Constitutional Appears: Well - Head Exam Head Exam: ATRAUMATIC, NORMAL INSPECTION, NORMOCEPHALIC - Eye Exam Eye Exam: EOMI, Normal appearance, PERRL Pupil Exam: NORMAL ACCOMODATION, PERRL - ENT Exam ENT Exam: Mucous Membranes Moist, Normal Exam - Neck Exam Neck Exam: Full ROM, Normal Inspection. absent: Lymphadenopathy - Respiratory Exam Respiratory Exam: Clear to Ausculation Bilateral, NORMAL BREATHING PATTERN - Cardiovascular Exam Cardiovascular Exam: REGULAR RHYTHM, +S1, +S2. absent: Murmur - GI/Abdominal Exam GI & Abdominal Exam: Soft, Normal Bowel Sounds. absent: Tenderness - Extremities Exam Extremities Exam: Full ROM, Normal Capillary Refill. absent: Joint Swelling, Pedal Edema Additional comments: DP and TP pulses 2+ b/l. Dressing on Right 5 toe c/d/i - Back Exam Back Exam: NORMAL INSPECTION - Neurological Exam Neurological Exam: Alert, Awake, CN II-XII Intact, Normal Gait, Oriented x3 Neuro motor strength exam: Left Upper Extremity: 5, Right Upper Extremity: 5, Left Lower Extremity: 5, Right Lower Extremity: 5 - Psychiatric Exam Psychiatric exam: Normal Affect, Normal Mood - Skin Skin Exam: Dry, Intact, Normal Color, Warm Discharge Plan - Discharge Medications Prescriptions: amLODIPine [Norvasc] 10 mg PO DAILY #30 tab Linezolid [Zyvox] 600 mg PO Q12 14 Days tab Lisinopril [Prinivil] 20 mg PO DAILY #30 tablet - Follow Up Plan Condition: STABLE Disposition: HOME/ ROUTINE Instructions: Type 1 Diabetes, High Blood Pressure (DC), Peripheral Vascular ( Arterial) Disease (DC), Cellulitis (Skin Infection), Adult (DC) Additional Instructions: Please follow up at [facility] in 7-10 days following discharge for management of your Diabetes and hypertension. I have attached the office information. No need to call to make an appointment. Just walk in. They will have access to all of your medical records. Please follow up with Dr. Jauregui. Please call the office to make an appointment. Please make an appointment as soon as possible. Please change dressing daily as you were instructed in the hospital. Please continue Zyvox 600mg twice a day for the next 2 weeks. Please come back to the ED if symptoms return or worsen. Referrals: [facility] at [facility] [Outside] <Arslan Bedoya - Last Filed: 01/13/18 17:02> Provider - Provider Date of Admission: 01/08/18 14:30 Attending physician: Arslan Bedoya MD Hospital Course - Lab Results Lab Results: Most Recent Lab Values WBC 7.7 10^3/ul (4.5-11.0) 01/11/18 07:00 RBC 3.36 10^6/uL (3.5-6.1) L 01/11/18 07:00 Hgb 10.7 g/dL (14.0-18.0) L 01/11/18 07:00 Hct 30.1 % (42.0-52.0) L 01/11/18 07:00 MCV 89.6 fl (80.0-105.0) 01/11/18 07:00 MCH 31.8 pg (25.0-35.0) 01/11/18 07:00 MCHC 35.5 g/dl (31.0-37.0) 01/11/18 07:00 RDW 13.1 % (11.5-14.5) 01/11/18 07:00 Plt Count 203 10^3/uL (120.0-450.0) 01/11/18 07:00 MPV 8.6 fl (7.0-11.0) 01/11/18 07:00 Gran % 59.7 % (50.0-68.0) 01/11/18 07:00 Lymph % (Auto) 27.7 % (22.0-35.0) 01/11/18 07:00 [place] % (Auto) 5.8 % (1.0-6.0) 01/11/18 07:00 Eos % (Auto) 6.3 % (1.5-5.0) H 01/11/18 07:00 Baso % (Auto) 0.5 % (0.0-3.0) 01/11/18 07:00 Gran # 4.61 (1.4-6.5) 01/11/18 07:00 Lymph # (Auto) 2.1 (1.2-3.4) 01/11/18 07:00 [place] # (Auto) 0.5 (0.1-0.6) 01/11/18 07:00 Eos # (Auto) 0.5 (0.0-0.7) 01/11/18 07:00 Baso # (Auto) 0.04 K/mm3 (0.0-2.0) 01/11/18 07:00 ESR 65 mm/hr (0.00-15.0) H 01/08/18 07:30 PT 11.6 SECONDS (9.4-12.5) 01/06/18 14:00 INR 1.02 (0.93-1.08) 01/06/18 14:00 APTT 28.1 Seconds (25.1-36.5) 01/06/18 14:00 Sodium 141 mmol/L (132-148) 01/11/18 07:00 Potassium 4.7 mmol/L (3.6-5.0) 01/11/18 07:00 Chloride 103 mmol/L (98-107) 01/11/18 07:00 Carbon Dioxide 27 mmol/L (21-33) 01/11/18 07:00 Anion Gap 16 (10-20) 01/11/18 07:00 BUN 17 mg/dL (7-21) 01/11/18 07:00 Creatinine 1.2 mg/dl (0.8-1.5) 01/11/18 07:00 Est GFR ( Amer) > 60 01/11/18 07:00 Est GFR (Non-Af Amer) > 60 01/11/18 07:00 POC Glucose (mg/dL) 153 mg/dL (65-110) H 01/13/18 06:36 Random Glucose 175 mg/dL (70-110) H 01/11/18 07:00 Hemoglobin A1c 9.4 % (4.2-6.5) H 01/07/18 07:15 Calcium 9.0 mg/dL (8.4-10.5) 01/11/18 07:00 Phosphorus 4.1 mg/dL (2.5-4.5) 01/07/18 07:15 Magnesium 2.0 mg/dL (1.7-2.2) 01/07/18 07:15 Total Bilirubin 0.5 mg/dL (0.2-1.3) 01/07/18 11:30 AST 20 U/L (17-59) 01/07/18 11:30 ALT 30 U/L (7-56) 01/07/18 11:30 Alkaline Phosphatase 61 U/L (38-126) 01/07/18 11:30 C-Reactive Protein 67.80 mg/L (0.0-9.9) H 01/08/18 07:30 Total Protein 6.2 g/dL (5.8-8.3) 01/07/18 11:30 Albumin 3.4 g/dL (3.0-4.8) 01/07/18 11:30 Globulin 2.9 gm/dL 01/07/18 11:30 Albumin/Globulin Ratio 1.2 (1.1-1.8) 01/07/18 11:30 Free T4 1.19 ng/dL (0.78-2.19) 01/09/18 07:00 Thyroxine (T4) 4.3 ug/dL (5.5-11.0) L 01/07/18 07:15 TSH 3rd Generation 4.97 mIU/mL (0.46-4.68) H 01/07/18 07:15 Attending/Attestation - Attestation I have personally seen and examined this patient.: Yes I have fully participated in the care of the patient.: Yes I have reviewed all pertinent clinical information, including history, physical exam and plan: Yes Notes (Text): 01/13/18 16:59 Medical record note made by the resident after discussion with my direction and input after the patient was personally seen and examined by me. I have reviewed the chart and agree that the record accurately reflects by personal performance of the history, physical exam, data review, and medical decision-making, in the course for the patient. I have also personally directed the plan of care. 62 years old male with PMH DM,HTN,PVD,SP left anterior tibial A angioplasty this admission , he SP 5th ray resection with infected ulcerations to left foot,he underwent wound debridement. todays back, at this plan to continue Zyvox for 2 more week to complete 6 weeks of antibiotics.Patient will follow up with Podiatry for frequent wound care follow up.Patient was also given education about dressing changes prior to discharge. Issue of compliance with medication and dietary compliance was discussed in detail. Management plan was discussed in detail with patient. Education was provided.
--- NOTE | 2018-01-13 15:45 | CP.PCM.PN ---
Subjective - Date & Time of Evaluation Date of Evaluation: 01/13/18 Time of Evaluation: 11:15 - Subjective Subjective: No fevers, foot feels better, no nausea, not in distress. Objective - Vital Signs/Intake and Output Vital Signs (last 24 hours): Temp Pulse Resp BP Pulse Ox 98.4 F 88 20 135/60 96 01/13/18 06:00 01/13/18 09:14 01/13/18 06:00 01/13/18 09:14 01/13/18 06:00 Intake and Output: 01/13/18 01/13/18 06:59 18:59 Intake Total 980 Output Total 200 Balance 780 - Medications Medications: Current Medications Amlodipine Besylate (Norvasc) 10 mg PO DAILY [facility] Last Admin: 01/13/18 09:14 Dose: 10 mg Ascorbic Acid (Vitamin C 500 Mg Tab) 500 mg PO DAILY [facility] Last Admin: 01/13/18 09:14 Dose: 500 mg Heparin Sodium (Porcine) (Heparin) 5,000 units SC Q8 [facility] Last Admin: 01/13/18 05:32 Dose: 5,000 units Insulin Human Lispro (Humalog Med) 0 units SC ACHS [facility] PRN Reason: Protocol Last Admin: 01/13/18 09:12 Dose: Not Given Linezolid (Zyvox) 600 mg PO Q12 [facility] PRN Reason: Protocol Last Admin: 01/13/18 09:14 Dose: 600 mg Lisinopril (Zestril) 20 mg PO DAILY [facility] Last Admin: 01/13/18 09:14 Dose: 20 mg Ondansetron HCl (Zofran Inj) 4 mg IVP ONCE PRN PRN Reason: Nausea/Vomiting Oxycodone/Acetaminophen (Percocet 5/325 Mg Tab) 1 tab PO Q4H PRN PRN Reason: Pain, moderate (4-7) Stop: 01/14/18 12:34 Oxycodone/Acetaminophen (Percocet 5/325 Mg Tab) 2 tab PO Q4H PRN PRN Reason: Pain, severe (8-10) Stop: 01/14/18 12:34 - Labs Labs: 01/11/18 07:00 01/11/18 07:00 PT 11.6 SECONDS (9.4-12.5) 01/06/18 14:00 INR 1.02 (0.93-1.08) 01/06/18 14:00 APTT 28.1 Seconds (25.1-36.5) 01/06/18 14:00 - Constitutional Appears: Chronically Ill - Head Exam Head Exam: NORMAL INSPECTION - ENT Exam ENT Exam: Mucous Membranes Moist - Neck Exam Neck Exam: absent: Lymphadenopathy, Meningismus - Respiratory Exam Respiratory Exam: Decreased Breath Sounds - Cardiovascular Exam Cardiovascular Exam: +S1, +S2 - GI/Abdominal Exam GI & Abdominal Exam: Soft. absent: Tenderness - Extremities Exam Additional comments: left foot with dressings in place Assessment and Plan - Assessment and Plan (Free Text) Plan: Assessment left foot 5th toe osteomyelitis with skin and skin structure infection, growing MRSA in the soft tissue and MSSA in the bone S/P partial 5th ray amputation and debridement of tissue on this admission DM peripheral neuropathy CAD HTN Plan has had 4 weeks of antibiotics since amputation of the left 5th toe - will continue Zyvox to complete the 6 weeks for the osteomyelitis and to cover also the skin and soft tissue infection - will need CBC, CMP at least once a week while on antibiotics should follow up with his [employer] as an outpatient
--- NOTE | 2018-01-18 22:22 | PCM.OP ---
Operative Report - Operative Report Date of Surgery/Procedure: 01/11/18 Time of Surgery/Procedure: 11:00 Surgeon: Dr. Jian Jauregui DPShannan Needle Maker: Dr. Dustin Isaac DPM PGY-1 Anesthesia/Sedation: Dr. Cotton Pre-Operative Diagnosis: left foot nonhealing ulcerations Post-Operative Diagnosis: same Indication for Surgery: Indications: The patient is a 62 year-old male with the above diagnosis. Patient is s/p left partial 5th ray resection secondary to osteomyelitis with gangrene and cellulitic changes. Patient surgical wound remains opened and continue to be nonhealing s/p surgical intervention. Patient also has nonhealing wound on the left foot submetatarsal 1 secondary to pressure and DM with neuropathy. The patient has exhausted all conservative treatment at this time and now requires surgical intervention. The patient signed the consent after careful explanation of risks, benefits, complication and alternatives for surgical procedure. No guarantees were given nor implied. NPO status was confirmed prior to taking patient to the OR. Operative Findings: see dictation Procedure/Operation Description: Preparation: The patient was brought in to the operating room and placed on the operating room table in a supine position. Timeout was performed for identification of the correct patient and procedure. After induction IV sedation, the patient received a total of 5 mL of a 1:1 mixture of .5% Marcaine plain and 1% lidocaine plain in a local block fashion surrounding ulceration sites to left foot. Then the lower extremity was then prepped and draped in normal sterile manner and the procedure began. No tourniquet was used during the procedure. Procedure 1: debridement of ulceration at left foot sub metatarsal head. Attention was directed to left foot at sub metatarsal 1 where an ulceration was noted measuring approximately .5 cm x .5 cm x .1 cm. The wound base was a mixture of granular and fibrotic tissue with hyperkeratotic rim present. During this time, approximately .5 cc of purulence drainage expressed with palpatino. With a use of #15 blade and a pickup, the hyperkeratotic rim surrounding ulceration site was debrided until healthier epithelialize skin was exposed. Next with the #15 all fibrotic, nonviable tissue was excisional debrided from the wound base until healthier bleeding tissue was exposed. Next a curved hemostat was used to examined for any tunneling and undermining from the ulceration site. It was determined that there was no tunneling. However there was undermining noted peripherally around wound. With a #15 blade and a pickup, the undermining skin was excisionally debrided until healthier epitheliazed skin appreciated to the wound margins. No additional drainage was expressed from ulceration site. Procedure 2: debridement of left foot nonhealing ulceration via Versajet. Attention was then directed to the lateral aspect of left foot where ulceration #2 is located measuring approximately 4 x 5 x 2 cm to the level of tendon with wound base being fibronectrotic with eschar noted to the lateral aspect of the ulceration; no granulation tissue noted. Using a blade #15, a metzenbaum and a pickup, all the necrotic eschar on the lateral aspect of the ulceration was circumferentially and excisionally debrided down to subcutaneous level. Using Versajet on power levels 5 and 7, the base of the ulceration was non-excisional debrided of all fibrotic and non-viable tissue until fresh, more healthy, bleeding granular tissue appeared at the surgical field. After debridement, it was noted that there was increase granulation tissue present centrally and healthier fibrous tissue surrounding the ulceration. The ulcerations were then irrigated with copious amounts of saline solution. The surgical sites were dressed with betadine soaked gauze, sterile gauze, ABD, and Kerlix Estimated Blood Loss: 1 Complications: none Discharge & Condition: Postoperative Condition: The patient tolerated the anesthesia and procedure well and was escorted to the recovery room with vital signs stable and neurovascular status intact to the right leg. Patient may weight bear to left lower extremity in surgical shoe to the heels. Podiatry will continue to follow patient while in house. Patient will follow up with Dr. Jauregui upon discharge.
== END 2018-01-13 14:49 | disposition home or self-care (01) | DRG 253 ==
LOC: ED 12:53 → ERH 15:18 → 5RSO 17:46 → 2RNO 01-07 12:54 → 5RSO 01-07 19:13 → OBSVTOIN 01-08 14:30
PROVIDERS: ADMIT Hospitalist; ATTEND Internal Medicine
PROC: 047Q3ZZ Dilation of Left Anterior Tibial Artery, Percutaneous Approach (ICD-10-PCS; 2018-01-07)
PROC: 0JDR0ZZ Extraction of Left Foot Subcutaneous Tissue and Fascia, Open Approach (ICD-10-PCS; 2018-01-11)
PROC: 0JBR0ZZ Excision of Left Foot Subcutaneous Tissue and Fascia, Open Approach (ICD-10-PCS; principal; 2018-01-11 10:30)
DX: E10.51 Type 1 diabetes mellitus with diabetic peripheral angiopathy without gangrene (principal); M86.8X7 Other osteomyelitis, ankle and foot; E10.69 Type 1 diabetes mellitus with other specified complication; E10.40 Type 1 diabetes mellitus with diabetic neuropathy, unspecified; E10.65 Type 1 diabetes mellitus with hyperglycemia; E10.621 Type 1 diabetes mellitus with foot ulcer; L97.529 Non-pressure chronic ulcer of other part of left foot with unspecified severity; I10 Essential (primary) hypertension; I25.10 Atherosclerotic heart disease of native coronary artery without angina pectoris; G47.00 Insomnia, unspecified; R00.1 Bradycardia, unspecified; Z89.422 Acquired absence of other left toe(s); Z87.891 Personal history of nicotine dependence; Z86.14 Personal history of Methicillin resistant Staphylococcus aureus infection

== ENCOUNTER 2018-02-22 14:14 | Inpatient (IN) | payer OTHER ==
[2018-02-22 14:15] VITALS: BMI 29.9
--- NOTE | 2018-02-22 15:14 | ED PDOC ---
Arrival/HPI - General Chief Complaint: Lower Extremity Problem/Injury Time Seen by Provider: 02/22/18 14:33 - History of Present Illness Narrative History of Present Illness (Text): 02/22/18 15:02 62 year old Male presents for evaluation of 5th toe amputation that happened in November. Patient has been seeing pathology specialist, Dr. Jian Jauregui. Up until last Wednesday, Dr. Jauregui reported that his wound has been healing well. Last week, after patient's appt with Dr. Jauregui, patient reported pain of wound with ambulation, redness, swelling of both legs, and warmth from the area. This morning, patient went to see Dr. Jauregui for weekly appointment, and Dr. Jauregui told him to come to the hospital for admission to treat his wound. Patient reports being afebrile except for last night, when he had a 101 F fever. Today, he is afebrile. He also reports his leg has not been washed in 3 months. (Samantha Banerjee) Past Medical History - Provider Review Nursing Documentation Reviewed: Yes - Infectious Disease Hx of Infectious Diseases: None - Cardiac Hx Cardiac Disorders: Yes Hx Hypertension: Yes - Pulmonary Hx Respiratory Disorders: No - Neurological Hx Neurological Disorder: Yes Other/Comment: neuropathy - HEENT Hx HEENT Disorder: No - Renal Hx Renal Disorder: No - Endocrine/Metabolic Hx Endocrine Disorders: Yes Hx Diabetes Mellitus Type 1: Yes - Hematological/Oncological Hx Blood Transfusions: No - Integumentary Hx Dermatological Disorder: Yes Other/Comment: LEFT GREAT TOE DISCOLORED - Musculoskeletal/Rheumatological Hx Musculoskeletal Disorders: No - Gastrointestinal Hx Gastrointestinal Disorders: No - Genitourinary/Gynecological Hx Genitourinary Disorders: No - Psychiatric Hx Psychophysiologic Disorder: No Hx Substance Use: No - Surgical History Hx Amputation: Yes (Left fifth toe) Hx Musculoskeletal Surgery: Yes (Left fifth toe amputation) - Anesthesia Hx Anesthesia Reactions: No Hx Malignant Hyperthermia: No Family/Social History - Physician Review Nursing Documentation Reviewed: Yes Family/Social History: Unknown Family HX Smoking Status: Former Smoker Hx Alcohol Use: Yes Hx Substance Use: No Allergies/Home Meds Allergies/Adverse Reactions: Allergies No Known Allergies Allergy (Verified 02/22/18 14:30) Review of Systems - Physician Review All systems were reviewed & negative as marked: Yes - Review of Systems Constitutional: Fevers Eyes: Normal ENT: Normal Respiratory: Normal Cardiovascular: Normal Gastrointestinal: Abdominal Pain (crampy) Musculoskeletal: Normal Skin: Normal Neurological: Normal Psychiatric: Normal Physical Exam Temperature: Afebrile Blood Pressure: Normal Pulse: Regular Respiratory Rate: Normal Appearance: Positive for: Well-Appearing Pain Distress: Mild Mental Status: Positive for: Alert and Oriented X 3 - Systems Exam Head: Present: Atraumatic Pupils: Present: PERRL Extroacular Muscles: Present: EOMI Mouth: Present: Moist Mucous Membranes Nose (External): Present: Atraumatic Neck: Present: Normal Range of Motion Respiratory/Chest: Present: Clear to Auscultation Cardiovascular: Present: Regular Rate and Rhythm Abdomen: Present: Normal Bowel Sounds Upper Extremity: Present: Normal Inspection, Normal ROM, NORMAL PULSES Lower Extremity: Present: Tenderness, Swelling, Erythema, Deformity Neurological: Present: GCS=15, CN II-XII Intact, Speech Normal, Motor Func Grossly Intact Skin: Present: Warm, Dry, Normal Color Psychiatric: Present: Alert, Oriented x 3 Vital Signs Temp Pulse Resp BP Pulse Ox 02/22/18 17:22 63 18 162/68 H 96 02/22/18 14:23 98.6 F 62 16 131/70 97 Medical Decision Making ED Course and Treatment: Impression: 62 year old Male presents with 1 week history of left 5th toe, pain , drainage, malodor, swelling, and discoloration. Assessment: Acute infection of Left 5th Toe Amputation Wound Plan: CBC: CMP: CXR: Foot X ray: VBG lactate: EKG: Blood culture: Wound culture: 02/22/18 15:27 02/22/18 15:29 (Samantha Banerjee) 02/22/2018 15:57 Patient seen and evaluated with medical driver. Treatment plan reviewed with podiatry consultations. Patient currently denies pain or discomfort. Exam is concerning for foot osteomyelitis vs. abscess vs. joint infection. IV antibiotics initiated and patient admitted to hospitalist service. Patient is anemic. This was compared to previous and patient noted to have no history of bleeding or melena. This was reviewed with admitting team for further evaluation. Chest X-ray IMPRESSION: No active pulmonary disease. Dictator: Cristin Alegria MD 02/22/2018 16:11 Left Foot X-Ray IMPRESSION: Findings are concerning for septic arthritis at the 4th metatarsophalangeal joint with subluxation of the joint. Soft tissue defect lateral to the joint and distal 4th metatarsal may represent large ulceration. Dictator: Cristin Alegria MD 02/26/18 08:26 (Sonal Tovar) - Lab Interpretations Microbiology Results: Microbiology Results 02/22/18 15:45 Blood Blood Culture - Final NO GROWTH AFTER 5 DAYS 02/22/18 15:45 Blood Gram Stain - Final TEST NOT PERFORMED 02/22/18 15:30 Blood Blood Culture - Final NO GROWTH AFTER 5 DAYS 02/22/18 15:30 Blood Gram Stain - Final TEST NOT PERFORMED Lab Results: 02/22/18 15:30 02/22/18 15:30 Lab Results 02/22/18 15:30: PT 13.7 H, INR 1.20 H, APTT 28.4 02/22/18 15:30: Sodium 137, Potassium 3.9, Chloride 101, Carbon Dioxide 26, Anion Gap 14, BUN 18, Creatinine 1.1, Est GFR ( Amer) > 60, Est GFR (Non- Af Amer) > 60, Random Glucose 192 H, Calcium 8.7, Total Bilirubin 0.6, AST 15 L D, ALT 33, Alkaline Phosphatase 94, Total Protein 7.1, Albumin 3.6, Globulin 3.5 , Albumin/Globulin Ratio 1.0 L 02/22/18 15:30: WBC 10.0 D, RBC 2.82 L, Hgb 8.5 L D, Hct 24.8 L, MCV 87.9, MCH 30.1, MCHC 34.3, RDW 13.5, Plt Count 266, MPV 9.0, Gran % 70.5 H, Lymph % (Auto ) 21.6 L, [place] % (Auto) 6.5 H, Eos % (Auto) 1.1 L, Baso % (Auto) 0.3, Gran # 7.07 H, Lymph # (Auto) 2.2, [place] # (Auto) 0.7 H, Eos # (Auto) 0.1, Baso # (Auto ) 0.03 02/22/18 14:24: POC Glucose (mg/dL) 184 H - RAD Interpretation Radiology Orders: 02/22/18 14:58 CHEST ONE VIEW [RAD] Stat FOOT LEFT 5TH DIGIT (TOE) [RAD] Stat - Medication Orders Current Medication Orders: Acetaminophen (Tylenol 325mg Tab) 650 mg PO Q6H PRN PRN Reason: Other Last Admin: 02/26/18 21:38 Dose: 650 mg MAR Pain/Vitals Document 02/26/18 21:38 KP (Rec: 02/26/18 21:38 KP [id number] Vitals Temperature (97.6 F-99.6 F) 100.1 F Temperature Source Oral Re-Assess: MAR Pain/Vitals Document 02/26/18 22:38 KP (Rec: 02/26/18 23:39 KP [id number]) Vitals Temperature (97.6 F-99.6 F) 98.9 F Temperature Source Oral Amlodipine Besylate (Norvasc) 10 mg PO DAILY [facility] Last Admin: 02/28/18 09:20 Dose: 10 mg MAR Blood Pressure Document 02/28/18 09:20 LMN (Rec: 02/28/18 09:21 LMN [id number]) Blood Pressure Blood Pressure (100/60-150/90) 138/104 Aspirin (Ecotrin) 81 mg PO DAILY [facility] Last Admin: 02/27/18 17:29 Dose: 81 mg Atorvastatin Calcium (Lipitor) 80 mg PO DIN [facility] Last Admin: 02/27/18 17:30 Dose: 80 mg Benzocaine/Menthol (Cepacol Sore Throat) 1 allie MT Q2H PRN PRN Reason: Sore Throat Last Admin: 02/24/18 15:37 Dose: 1 allie Dextrose (Dextrose 50% Inj) 0 ml IV STAT PRN; Protocol PRN Reason: Hypoglycemia Protocol Docusate Sodium (Colace) 100 mg PO BID [facility] Stop: 02/28/18 18:00 Last Admin: 02/28/18 09:20 Dose: 100 mg Enoxaparin Sodium (Lovenox) 40 mg SC DAILY [facility] PRN Reason: Protocol Last Admin: 02/24/18 15:45 Dose: Not Given Non-Admin Reason: Patient in OR/Vascular Dextrose (Dextrose 5% In Water 1000 Ml) 1,000 mls @ 0 mls/hr IV .Q0M PRN; Protocol; Per Protocol PRN Reason: Hypoglycemia Protocol Cefazolin Sodium 2 gm/ Sodium (Chloride) 100 mls @ 200 mls/hr IVPB Q8 AMINA PRN Reason: Protocol Last Admin: 02/28/18 14:58 Dose: 200 mls/hr eMAR Start Stop Document 02/28/18 14:58 LMN (Rec: 02/28/18 14:58 LMN [id number]) Intravenous Solution Start Date 02/28/18 Start Time 14:58 Insulin Detemir (Levemir) 10 unit SC [facility] Last Admin: 02/27/18 22:53 Dose: 10 units MAR Blood Glucose Document 02/27/18 22:53 LVC (Rec: 02/27/18 22:54 [id number]) Blood Glucose Finger Stick Blood Glucose (70-120) 138 Subcutaneous Administrations Document 02/27/18 22:53 LV (Rec: 02/27/18 22:54 [id number]) Injection Site MAR Injection Site Left Arm Charges for Administration # of Subcutaneous Administrations 1 Insulin Human Regular (Humulin R) 0 units SC [facility] AMINA PRN Reason: Protocol Last Admin: 02/28/18 11:36 Dose: Not Given Non-Admin Reason: Blood Sugar Parameter MAR Blood Glucose Document 02/28/18 11:36 LMN (Rec: 02/28/18 11:36 LMN [id number]) Blood Glucose Finger Stick Blood Glucose (70-120) 128 Lisinopril (Zestril) 20 mg PO DAILY [facility] Last Admin: 02/28/18 09:20 Dose: 20 mg Ondansetron HCl (Zofran Inj) 4 mg IVP ONCE PRN PRN Reason: Nausea/Vomiting Vitamin D (Vitamin D 400 Intl Units Tab) 600 intlu PO DAILY [facility] Last Admin: 02/27/18 17:29 Dose: 600 intlu Comments: resident ok to give medication late Discontinued Medications Hydromorphone HCl (Dilaudid) 0.5 mg IVP Q15M PRN PRN Reason: Pain, moderate (4-7) Stop: 02/24/18 14:31 Vancomycin HCl (Vancomycin 1gm) 1 gm in 250 mls @ 167 mls/hr IVPB STAT STA PRN Reason: Protocol Stop: 02/22/18 17:35 Last Admin: 02/22/18 16:20 Dose: 167 mls/hr eMAR Start Stop Document 02/22/18 16:20 JENI (Rec: 02/22/18 16:25 JENI [id number]) Intravenous Solution Start Date 02/22/18 Start Time 16:25 End Date 02/22/18 End time 17:55 Total Infusion Time 90 Vancomycin HCl (Vancomycin 1gm) 1 gm in 250 mls @ 167 mls/hr IVPB Q12H AMINA PRN Reason: Protocol Piperacillin Sod/Tazobactam Sod (Zosyn 3.375 In Ns 100ml) 100 mls @ 200 mls/hr IVPB Q6 AMINA PRN Reason: Protocol Stop: 03/02/18 00:01 Last Admin: 02/28/18 05:26 Dose: 200 mls/hr eMAR Start Stop Document 02/28/18 05:26 LVC (Rec: 02/28/18 05:26 LVC [id number]) Intravenous Solution Start Date 02/28/18 Start Time 05:26 Vancomycin HCl (Vancomycin 1gm) 1 gm in 250 mls @ 167 mls/hr IVPB Q12 AMINA PRN Reason: Protocol Last Admin: 02/28/18 09:21 Dose: 167 mls/hr eMAR Start Stop Document 02/28/18 09:21 LMN (Rec: 02/28/18 09:21 LMN [id number]) Intravenous Solution Start Date 02/28/18 Start Time 09:21 Sodium Chloride (Sodium Chloride 0.9%) 1,000 mls @ 75 mls/hr IV .[id number] [facility] Stop: 02/24/18 14:46 Last Admin: 02/24/18 15:46 Dose: Insulin Detemir (Levemir) 8 unit SC HS [facility] Last Admin: 02/24/18 22:02 Dose: 8 units MAR Blood Glucose Document 02/24/18 22:02 [facility] (Rec: 02/24/18 22:03 [id number]) Blood Glucose Finger Stick Blood Glucose (70-120) 239 Subcutaneous Administrations Document 02/24/18 22:02 [facility] (Rec: 02/24/18 22:03 [id number]) Injection Site MAR Injection Site Right Arm Charges for Administration # of Subcutaneous Administrations 1 Insulin Lispro Protam/Lispro Human (Humalog Mix 75/25) 4 units SC DAILY [facility] Last Admin: 02/25/18 11:24 Dose: - PA / SECURITY MONITOR / Resident Statement / has reviewed & agrees with the documentation as recorded. MD/DO has examined the patient and agrees with the treatment plan. Disposition/Present on Arrival - Present on Arrival Any Indicators Present on Arrival: No History of DVT/PE: No History of Uncontrolled Diabetes: Yes Urinary Catheter: No History of Decub. Ulcer: Yes (wrap by outside foot doc) History Surgical Site Infection Following: None - Disposition Have Diagnosis and Disposition been Completed?: Yes Disposition Time: 15:30 Patient Plan: Admission - Disposition Diagnosis: Cellulitis of foot, Foot abscess, Osteomyelitis, Anemia Disposition: HOSPITALIZED Patient Problems: Current Active Problems Problem Status Onset Amputated toe of left foot Acute Anemia Acute Cellulitis of foot Acute Foot abscess Acute Osteomyelitis Acute Condition: SERIOUS
--- NOTE | 2018-02-22 15:19 | CP.PCM.CON ---
Review of Systems - Review of Systems All systems: reviewed and no additional remarkable complaints except (per HPI) Past Patient History - Infectious Disease Hx of Infectious Diseases: None - Past Social History Smoking Status: Former Smoker - CARDIAC Hx Cardiac Disorders: Yes Hx Hypertension: Yes - PULMONARY Hx Respiratory Disorders: No - NEUROLOGICAL Hx Neurological Disorder: Yes Other/Comment: neuropathy - HEENT Hx HEENT Problems: No - RENAL Hx Chronic Kidney Disease: No - ENDOCRINE/METABOLIC Hx Endocrine Disorders: Yes Hx Diabetes Mellitus Type 1: Yes - HEMATOLOGICAL/ONCOLOGICAL Hx Blood Transfusions: No - INTEGUMENTARY Hx Dermatological Problems: Yes Other/Comment: LEFT GREAT TOE DISCOLORED - MUSCULOSKELETAL/RHEUMATOLOGICAL Hx Musculoskeletal Disorders: No - GASTROINTESTINAL Hx Gastrointestinal Disorders: No - GENITOURINARY/GYNECOLOGICAL Hx Genitourinary Disorders: No - PSYCHIATRIC Hx Psychophysiologic Disorder: No Hx Substance Use: No - SURGICAL HISTORY Hx Amputation: Yes (Left fifth toe) Hx Musculoskeletal Surgery: Yes (Left fifth toe amputation) - ANESTHESIA Hx Anesthesia Reactions: No Hx Malignant Hyperthermia: No Meds Allergies/Adverse Reactions: Allergies Allergy/AdvReac Type Severity Reaction Status Date / Time No Known Allergies Allergy Verified 02/22/18 14:30 Physical Exam - Constitutional Appears: Well, Non-toxic, No Acute Distress - Extremities Exam Additional comments: Left lower extremity focused exam: Vasc: DP/PT pulses palpable 1/4. Temperature gradient warm to warm. Pedal hair growth absent. CFT < 3 sec x 4 digit, unable to assess to 5th digit Derm: Open ulceration noted to dorsolateral forefoot proximal to 5th digit measuring approx 4.5cm x 2.8cm x 0.7cm with fibrogranular wound base, extending down to level of deep fascia. 2-3cc of purulent sanguinous drainage expressed with pressure. Malodor present. Hypopigmentation noted to skin plantar to ulceration site. Mild fluctuance noted to jaida wound area. Wound probes deep to tendinous structures. Additional superficial hyperkeratotic lesion noted sub met 1 with no break in skin or soft tissue noted. Hyperpigmentation noted to dorsum of foot. Neuro: Protective sensation grossly diminished Ortho: No tenderness to palpation of ulceration site - Neurological Exam Neurological exam: Alert, Oriented x3 - Psychiatric Exam Psychiatric exam: Normal Affect, Normal Mood Results - Vital Signs Recent Vital Signs: Last Vital Signs Temp 98.6 F 02/22/18 14:23 Pulse 62 02/22/18 14:23 Resp 16 02/22/18 14:23 BP 131/70 02/22/18 14:23 Pulse Ox 97 02/22/18 14:23 Assessment & Plan - Assessment and Plan (Free Text) Assessment: 62 y/o diabetic male with left forefoot ulceration, clinically infected Plan: Pt seen and evaluated in ED Discussed with attending Dr. Jauregui CBC, BMP ordered Foot x-rays ordered Will consider possible foot MRI pending x-ray results Pt started on IV Vanco, Zosyn Wound culture taken of L foot Wound cleaned with saline and dressed with betadine, DSD Surgical shoe ordered for L foot, pt may fully bear weight as needed (to/from bathroom) Pt to be admitted for IV antibiotics and worked up for osteomyelitis/abscess Will continue to follow while in house
--- NOTE | 2018-02-22 15:58 | RAD ---
Date of service: 02/22/2018 PROCEDURE: CHEST RADIOGRAPH, 1 VIEW HISTORY: Possible sepsis COMPARISON: 12/07/2017. FINDINGS: LUNGS: The lungs are well inflated and clear. PLEURA: No pneumothorax or pleural fluid seen. CARDIOVASCULAR: Normal. OSSEOUS STRUCTURES: No significant abnormalities. VISUALIZED UPPER ABDOMEN: Normal. OTHER FINDINGS: None. IMPRESSION: No active pulmonary disease.
[2018-02-22 16:01] LABS: BASO # 0.03 K/mm3 (0.0-2.0); BASO % 0.3 % (0.0-3.0); EOS # 0.1 (0.0-0.7); EOS % 1.1 % (1.5-5.0); GRAN # 7.07 (1.4-6.5); GRAN % 70.5 % (50.0-68.0); HEMOGLOBIN 8.5 g/dL (14.0-18.0); LYMPH # 2.2 (1.2-3.4); LYMPH % 21.6 % (22.0-35.0); MEAN CELL VOLUME 87.9 fl (80.0-105.0); MEAN CORPUSCULAR HEMOGLOBIN 30.1 pg (25.0-35.0); MEAN CORPUSCULAR HGB CONC 34.3 g/dl (31.0-37.0); MONO # 0.7 (0.1-0.6); MONO % 6.5 % (1.0-6.0); RBC 2.82 10^6/uL (3.5-6.1); RED CELL DISTRIBUTION WIDTH 13.5 % (11.5-14.5)
[2018-02-22] MEDS ORDERED: Vancomycin 1gm in NS 250ml 1 GM/250 ML BAG IVPB STA (16:06)
[2018-02-22 16:10] LABS: ALBUMIN 3.6 g/dL (3.0-4.8); ALT/SGPT 33 U/L (7-56); AST/SGOT 15 U/L (17-59); BLOOD UREA NITROGEN 18 mg/dL (7-21); CALCIUM 8.7 mg/dL (8.4-10.5); GFR AFRICAN-AMERICAN > 60; GFR NON-AFRICAN AMERICAN > 60
--- NOTE | 2018-02-22 16:13 | RAD ---
Date of service: 02/22/2018 PROCEDURE: Radiographs of the left foot HISTORY: abscess of left foot COMPARISON: 12/09/2017 TECHNIQUE: AP, lateral and oblique radiographs of the left foot were obtained FINDINGS: There is erosion and cortical irregularity in the head of the 4th metatarsal and base of the proximal phalanx of the 4th digit with subluxation of the tarsometatarsal joint. There is diffuse bone demineralization. The remaining joint spaces are preserved. Status post amputation at the level of the mid 5th metatarsal. There is diffuse bone demineralization. There is a large soft tissue defect lateral to the 4th metatarsal. IMPRESSION: Findings are concerning for septic arthritis at the 4th metatarsophalangeal joint with subluxation of the joint. Soft tissue defect lateral to the joint and distal 4th metatarsal may represent large ulceration.
[2018-02-22 16:31] LABS: INR 1.2 (0.93-1.08); PARTIAL THROMBOPLASTIN TIME 28.4 Seconds (25.1-36.5); PROTHROMBIN TIME 13.7 SECONDS (9.4-12.5)
--- NOTE | 2018-02-22 16:33 | CP.PCM.HP ---
History of Present Illness - History of Present Illness History of Present Illness: Mr Baez is a 62 year old male with a PMHx of IDDM2, HTN, PVD, CAD, peripheral neuropathy, Hx of osteomyelitis left foot 5th digit s/p amputation who presents today for increased pain, swelling and redness of his left anterior foot. He was seen by his department mgr Dr Jauregui this morning who advised the patient to come to the ER to get evaluated. Patient stated that up until 1 week ago his left foot was healing fine. He reports a fever of 101 last night. To recap, patient was admitted in 11/2017 for left foot 5th digit cellulitis, he was diagnosed with osteomyelitis and had a 5th digit amputation with department mgr Dr Jauregui. Wound cultures from that admission show growth of MRSA in the soft tissue and MSSA in the bone. Patient completed his 4 week course of zyvox after discharge as advised. In 12/2017 patient re-admitted for non-healing wound of same 5th digit underwent debridement of non-healing ulcer, on that admission he also had angioplasty of left anterior tibial artery. Today the patient is afebrile. He denied chest pain, shortness of breath, abdominal pain, urinary symptoms, n/v/d/c. PMD: [place] PMHx: IDDM2, HTN, PVD, CAD, peripheral neuropathy, Hx of osteomyelitis left foot 5th digit s/p amputation PSHx: Left foot 5th digit partial amputation 11/2017, debridement of left foot nonhealing ulcerations including all nonviable soft tissue 12/2017, left anterior tibial angioplasty for severe tibial and pedal occulsive disease 12/2017 Allergies: NKDA SHx: denies tobacco/drug use. Drinks 1-2beers/day. 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 FamHx: mother: DM and CVA. brother has DM Present on Admission - Present on Admission Any Indicators Present on Admission: No Review of Systems - Constitutional Constitutional: Fever. absent: Chills, Malaise, Weight Gain - EENT Eyes: absent: Blurred Vision Nose/Mouth/Throat: absent: Nasal Discharge - Cardiovascular Cardiovascular: Claudication, Edema, Palpitations. absent: Chest Pain, Irregular Heart Rhythm, Lightheadedness - Respiratory Respiratory: absent: Cough, Dyspnea on Exertion, Wheezing, Chest Congestion - Gastrointestinal Gastrointestinal: absent: Constipation, Diarrhea, Hematemesis, Hematochezia, Melena - Genitourinary Genitourinary: absent: Dysuria - Musculoskeletal Musculoskeletal: Back Pain - Integumentary Integumentary: Bleeding Lesions, Erythema, Swelling. absent: Dry Skin, New Lesions - Neurological Neurological: absent: Confusion Past Patient History - Infectious Disease Hx of Infectious Diseases: None - Past Social History Smoking Status: Former Smoker - CARDIAC Hx Cardiac Disorders: Yes Hx Hypertension: Yes - PULMONARY Hx Respiratory Disorders: No - NEUROLOGICAL Hx Neurological Disorder: Yes Other/Comment: neuropathy - HEENT Hx HEENT Problems: No - RENAL Hx Chronic Kidney Disease: No - ENDOCRINE/METABOLIC Hx Endocrine Disorders: Yes Hx Diabetes Mellitus Type 1: Yes - HEMATOLOGICAL/ONCOLOGICAL Hx Blood Transfusions: No - INTEGUMENTARY Hx Dermatological Problems: Yes Other/Comment: LEFT GREAT TOE DISCOLORED - MUSCULOSKELETAL/RHEUMATOLOGICAL Hx Musculoskeletal Disorders: No - GASTROINTESTINAL Hx Gastrointestinal Disorders: No - GENITOURINARY/GYNECOLOGICAL Hx Genitourinary Disorders: No - PSYCHIATRIC Hx Psychophysiologic Disorder: No Hx Substance Use: No - SURGICAL HISTORY Hx Amputation: Yes (Left fifth toe) Hx Musculoskeletal Surgery: Yes (Left fifth toe amputation) - ANESTHESIA Hx Anesthesia Reactions: No Hx Malignant Hyperthermia: No Meds Allergies/Adverse Reactions: Allergies Allergy/AdvReac Type Severity Reaction Status Date / Time No Known Allergies Allergy Verified 02/22/18 14:30 Physical Exam - Constitutional Appears: Well, Non-toxic, No Acute Distress - Head Exam Head Exam: ATRAUMATIC, NORMAL INSPECTION - Eye Exam Eye Exam: EOMI Pupil Exam: PERRL - ENT Exam ENT Exam: Mucous Membranes Moist - Neck Exam Neck exam: Positive for: Full Rom, Normal Inspection. Negative for: Lymphadenopathy, Tenderness - Respiratory Exam Respiratory Exam: Clear to Auscultation Bilateral, NORMAL BREATHING PATTERN. absent: Rales, Rhonchi, Wheezes - Cardiovascular Exam Cardiovascular Exam: REGULAR RHYTHM, +S1, +S2. absent: Tachycardia, JVD, Systolic Murmur - GI/Abdominal Exam GI & Abdominal Exam: Normal Bowel Sounds, Soft. absent: Distended, Firm, Guarding, Hernia, Tenderness - Extremities Exam Additional comments: Left foot: DP/PT pulses palpable, pedal hair growth absent, sensation diminished , motor function 5/5, no tenderness to palpation to ulceration site, left foot wrapped in gauze which was c/d/i - Neurological Exam Neurological exam: Alert, Oriented x3 - Skin Additional comments: see under extremity Results - Vital Signs Recent Vital Signs: Last Vital Signs Temp 98.6 F 02/22/18 14:23 Pulse 62 02/22/18 14:23 Resp 16 02/22/18 14:23 BP 131/70 02/22/18 14:23 Pulse Ox 97 02/22/18 14:23 - Labs Result Diagrams: 02/22/18 15:30 02/22/18 15:30 Labs: Laboratory Results - last 24 hr 02/22/18 02/22/18 02/22/18 14:24 15:30 15:30 WBC 10.0 D RBC 2.82 L Hgb 8.5 L D Hct 24.8 L MCV 87.9 MCH 30.1 MCHC 34.3 RDW 13.5 Plt Count 266 MPV 9.0 Gran % 70.5 H Lymph % (Auto) 21.6 L Duc[place]ne % (Auto) 6.5 H Eos % (Auto) 1.1 L Baso % (Auto) 0.3 Gran # 7.07 H Lymph # (Auto) 2.2 [place] # (Auto) 0.7 H Eos # (Auto) 0.1 Baso # (Auto) 0.03 Sodium 137 Potassium 3.9 Chloride 101 Carbon Dioxide 26 Anion Gap 14 BUN 18 Creatinine 1.1 Est GFR ( Amer) > 60 Est GFR (Non-Af Amer) > 60 POC Glucose (mg/dL) 184 H Random Glucose 192 H Calcium 8.7 Total Bilirubin 0.6 AST 15 L D ALT 33 Alkaline Phosphatase 94 Total Protein 7.1 Albumin 3.6 Globulin 3.5 Albumin/Globulin Ratio 1.0 L Assessment & Plan - Assessment and Plan (Free Text) Assessment: Mr Baez is a 62 year old male with a PMHx of IDDM2, HTN, PVD, CAD, peripheral neuropathy, Hx of osteomyelitis left foot 5th digit s/p amputation who presents for increased pain, swelling and redness of his left anterior foot: LEFT FOREFOOT ULCERATION 3rd admission since 11/2017 for left forefoot cellulitis/ulceration s/p left 5th digit amputation (11/2017) and wound debridement (12/2017) Pt to be admitted for IV antibiotics and worked up for osteomyelitis/abscess Podiatry consult, Dr Jauregui * Wound cleaned with saline and dressed with betadine, DSD * Surgical shoe ordered for L foot, pt may fully bear weight as needed (to/from bathroom) ID consult, Dr Dorsey Diagnostics: lactate normal, wbc normal, afebrile F/U wound cx, blood cx Imaging: Left foot xray 02/22/18: * Findings are concerning for septic arthritis at the 4th metatarsophalangeal joint with subluxation of the joint. Soft tissue defect lateral to the joint and distal 4th metatarsal may represent large ulceration. F/U MRI left foot w/o contrast: Meds: vancomycin 1g ivpb q12h zosyn 3.375g ivpb q6h HTN cont home med amlodipine 10mg po qd cont home med lisinopril 20mg po qd IDDM2 accuchecks riss - medium dose protocol hypoglycemia protocol home regimen includes metformin 500mg po bid and levemir 8u hs - will hold off for now NORMOCYTIC ANEMIA on admission: 8.5 - drop from 10.7 1 month ago F/U iron, tibc, retic count, ferritin VITAMIN D DEFICIENCY On admission: vit d 25-OH -> 26.9 start cholecalciferol 600 IU po qd PVD Recently in 12/2017 patient had angioplasty of distal left anterior tibial artery. Vascular note by Dr Jack stated patient had severe bilateral tibial and pedal occlusive disease and that post angioplasty the left dorsalis pedis artery appeared to supply the plantar arch. PROPHYLAXIS Lovenox 40mg sc qd scd's contraindicated 2/2 to LE swelling diabetic diet gi prophylaxis not indicated
[2018-02-22 16:54] LABS: VENOUS BLOOD GAS BASE EXCESS 3.3 mmol/L (0.0-2.0); VENOUS BLOOD GAS PO2 53 mm/Hg (30-55); VENOUS BLOOD PH 7.39 (7.32-7.43)
[2018-02-22] MEDS ORDERED: Dextrose 50% SYRINGE Inj (50 ml) IV PRN (17:41)
[2018-02-22] MEDS ORDERED: Vancomycin 1gm in NS 250ml 1 GM/250 ML BAG IVPB SCH (19:15)
[2018-02-22] MEDS: Vancomycin 1gm in NS 250ml 1 GM/250 ML BAG IVPB SCH (21:31)
--- NOTE | 2018-02-22 22:08 | CARD ---
APPROVED REPORT Date of service: 02/22/2018 EKG Measurement Heart [id number] [place] [id number] <Conclusion> Normal sinus rhythm Normal ECG
[2018-02-22] MEDS: Insulin Regular 1 UNITS/0.01 ML ML SC SCH (22:47)
[2018-02-22] MEDS: Piperacillin/Tazobact 3.375 gm 100 ML IVPB SCH (23:38)
[2018-02-23] MEDS: Piperacillin/Tazobact 3.375 gm 100 ML IVPB SCH ×3 (05:40→17:51)
[2018-02-23 06:57] LABS: BASO # 0.03 K/mm3 (0.0-2.0); BASO % 0.3 % (0.0-3.0); EOS # 0.1 (0.0-0.7); EOS % 1.2 % (1.5-5.0); GRAN # 7.68 (1.4-6.5); HEMOGLOBIN 8.7 g/dL (14.0-18.0); LYMPH # 2.3 (1.2-3.4); LYMPH % 21.2 % (22.0-35.0); MEAN CELL VOLUME 88.6 fl (80.0-105.0); MEAN CORPUSCULAR HGB CONC 33.9 g/dl (31.0-37.0); MEAN PLATELET VOLUME 9.2 fl (7.0-11.0); MONO # 0.7 (0.1-0.6); MONO % 6.3 % (1.0-6.0); RBC 2.9 10^6/uL (3.5-6.1); RED CELL DISTRIBUTION WIDTH 13.6 % (11.5-14.5); WHITE BLOOD COUNT 10.8 10^3/ul (4.5-11.0)
[2018-02-23 06:58] LABS: IRON 29 ug/dL (45-180)
[2018-02-23 07:08] LABS: % IRON SATURATION 17 % (20-55); TOTAL IRON BINDING CAPACITY 176 ug/dL (261-462)
[2018-02-23 07:09] LABS: ALBUMIN 3.3 g/dL (3.0-4.8); ALT/SGPT 20 U/L (7-56); AST/SGOT 23 U/L (17-59); BLOOD UREA NITROGEN 18 mg/dL (7-21); CALCIUM 8.5 mg/dL (8.4-10.5); GFR AFRICAN-AMERICAN > 60; GFR NON-AFRICAN AMERICAN > 60
[2018-02-23] MEDS: Insulin Regular 1 UNITS/0.01 ML ML SC SCH ×4 (08:17→21:44)
--- NOTE | 2018-02-23 08:58 | CP.PCM.PN ---
<Lencho Erickson - Last Filed: 02/23/18 13:49> Subjective - Date & Time of Evaluation Date of Evaluation: 02/23/18 Time of Evaluation: 08:36 - Subjective Subjective: Lencho Erickson DO -PGY1 IM PHARMACY TECH CUSTOMER SERVICE - MEDICINE PROGRESS NOTE Pt. was seen this AM at bedside, reported no changes in presentation since admission. He reported no event overnight however, Tmax in 24H revealed 100.6F at 2242. No subjective F, chills, sob, cough, cp, palp, abd pain, n/v/d/c. Objective - Vital Signs/Intake and Output Vital Signs (last 24 hours): Temp Pulse Resp BP Pulse Ox 100.6 F H 65 18 139/78 97 02/22/18 22:42 02/22/18 22:42 02/22/18 22:42 02/22/18 22:42 02/22/18 22:42 Intake and Output: 02/23/18 02/23/18 06:59 18:59 Intake Total 740 Output Total 550 Balance 190 - Medications Medications: Current Medications Amlodipine Besylate (Norvasc) 10 mg PO DAILY [facility] Dextrose (Dextrose 50% Inj) 0 ml IV STAT PRN; Protocol PRN Reason: Hypoglycemia Protocol Enoxaparin Sodium (Lovenox) 40 mg SC DAILY [facility] PRN Reason: Protocol Dextrose (Dextrose 5% In Water 1000 Ml) 1,000 mls @ 0 mls/hr IV .Q0M PRN; Protocol; Per Protocol PRN Reason: Hypoglycemia Protocol Piperacillin Sod/Tazobactam Sod (Zosyn 3.375 In Ns 100ml) 100 mls @ 200 mls/hr IVPB Q6 [facility] PRN Reason: Protocol Stop: 03/02/18 00:01 Last Admin: 02/23/18 05:40 Dose: 200 mls/hr Vancomycin HCl (Vancomycin 1gm) 1 gm in 250 mls @ 167 mls/hr IVPB Q12 [facility] PRN Reason: Protocol Last Admin: 02/22/18 21:31 Dose: 167 mls/hr Insulin Human Regular (Humulin R) 0 units SC ACHS [facility] PRN Reason: Protocol Last Admin: 02/22/18 22:47 Dose: Not Given Lisinopril (Zestril) 20 mg PO DAILY [facility] Vitamin D (Vitamin D 400 Intl Units Tab) 600 intlu PO DAILY [facility] - Labs Labs: 02/23/18 06:40 02/23/18 06:40 PT 13.7 SECONDS (9.4-12.5) H 02/22/18 15:30 INR 1.20 (0.93-1.08) H 02/22/18 15:30 APTT 28.4 Seconds (25.1-36.5) 02/22/18 15:30 - Constitutional Appears: Well - Head Exam Head Exam: ATRAUMATIC, NORMOCEPHALIC - Eye Exam Eye Exam: EOMI. absent: Scleral icterus - ENT Exam ENT Exam: Mucous Membranes Moist - Respiratory Exam Respiratory Exam: Clear to Ausculation Bilateral, NORMAL BREATHING PATTERN. absent: Wheezes - Cardiovascular Exam Cardiovascular Exam: RRR, +S1, +S2. absent: Murmur - GI/Abdominal Exam GI & Abdominal Exam: Soft, Normal Bowel Sounds. absent: Tenderness - Extremities Exam Extremities Exam: absent: Pedal Edema Additional comments: Diminished pedal pulses BL; 2x3cm open ulceration in the L anterior metatarsal, lateral to the fourth digit extending to the dorsum of the foot. Lesion is draining, and mucopurulent; extending down into 5th and 4th metatarsal. - Neurological Exam Neurological Exam: Alert, Awake, Oriented x3 - Psychiatric Exam Psychiatric exam: Normal Affect, Normal Mood - Skin Skin Exam: Dry, Intact, Warm Assessment and Plan - Assessment and Plan (Free Text) Assessment: 62M w/ PMH of DM2, PVD, CAD, HTN, Chronic neuropathy, Osteomyelitis s/p Left 5th metatarsal amputation 12/01, and s/p debridement + L anterior tibial angioplasty 12/31 admitted for chronic L anterior foot ulceration worsening x 1 week. Plan: Chronic L foot ulceration Patient is s/p L 5th metatarsal amputation (11/2017) and debridement + anterior tibial angioplasty (12/2017) 2/2 poor vascularization On exam L dorsal foot ulceration to bone w/ purulent drainage present Patient febrile overnight; No white count on admission or this AM Reviewed L foot xray - showing involvement of 4th metatarsal Left foot MRI ordered, awaiting radiology read Patient on empiric IV Vancomycin and Piperacillin/Tazobactam. Wound culture is pending Podiatry consulted, recommendations appreciated ID consulted, recommendations appreciated Vascular surgery consulted to evaluated LE circulation, recommendations appreciated Wound care consulted Normocytic Anemia: Most likely 2/2 to Anemia of Chronic disease Hb on admission low; MCV normal; Ferritin elevated; Retic Count normal Type 2 Diabetes Patients is hyperglycemic this AM 2/2 not receiving insulin last night Resumed Home Levemir 8 QHS Patient on ISS Regular A1C on 02/21 was 8.5, improved from 9.4 on 01/07 Hypertension Reviewed at home blood pressure medications Started patient on usual Lisinopril and amlodipine PVD s/p angioplasty 12/2017 a vascular consulted [id number] Atorvastatin 80 CAD As above Peripheral Neuropathy Not on gabapentin at home; stable otherwise. Prophylaxis DVT/ GI - Lovenox/ Protonix Case discussed w/ attending Dr. Aureliano Erickson DO - PGY1 IM PHARMACY TECH CUSTOMER SERVICE - PAGER [id number] <Arslan Bedoya - Last Filed: 02/24/18 14:00> Objective - Vital Signs/Intake and Output Vital Signs (last 24 hours): Temp Pulse Resp BP Pulse Ox 98.7 F 60 16 118/67 98 02/24/18 13:46 02/24/18 13:46 02/24/18 13:46 02/24/18 13:46 02/24/18 13:46 Intake and Output: 02/24/18 02/24/18 06:59 18:59 Intake Total 620 75 Output Total 650 Balance -30 75 - Medications Medications: Current Medications Amlodipine Besylate (Norvasc) 10 mg PO DAILY [facility] Last Admin: 02/23/18 09:18 Dose: 10 mg Aspirin (Ecotrin) 81 mg PO DAILY [facility] Last Admin: 02/23/18 10:56 Dose: 81 mg Atorvastatin Calcium (Lipitor) 80 mg PO DIN [facility] Last Admin: 02/23/18 17:51 Dose: 80 mg Dextrose (Dextrose 50% Inj) 0 ml IV STAT PRN; Protocol PRN Reason: Hypoglycemia Protocol Enoxaparin Sodium (Lovenox) 40 mg SC DAILY [facility] PRN Reason: Protocol Last Admin: 02/23/18 09:18 Dose: 40 mg Hydromorphone HCl (Dilaudid) 0.5 mg IVP Q15M PRN PRN Reason: Pain, moderate (4-7) Stop: 02/24/18 14:31 Dextrose (Dextrose 5% In Water 1000 Ml) 1,000 mls @ 0 mls/hr IV .Q0M PRN; Protocol; Per Protocol PRN Reason: Hypoglycemia Protocol Piperacillin Sod/Tazobactam Sod (Zosyn 3.375 In Ns 100ml) 100 mls @ 200 mls/hr IVPB Q6 [facility] PRN Reason: Protocol Stop: 03/02/18 00:01 Last Admin: 02/24/18 06:26 Dose: 200 mls/hr Vancomycin HCl (Vancomycin 1gm) 1 gm in 250 mls @ 167 mls/hr IVPB Q12 [facility] PRN Reason: Protocol Last Admin: 02/24/18 09:36 Dose: 167 mls/hr Sodium Chloride (Sodium Chloride 0.9%) 1,000 mls @ 75 mls/hr IV .[id number] [facility] Stop: 02/24/18 14:46 Insulin Detemir (Levemir) 8 unit SC HS [facility] Last Admin: 02/23/18 21:45 Dose: 8 units Insulin Human Regular (Humulin R) 0 units SC ACHS [facility] PRN Reason: Protocol Last Admin: 02/23/18 21:44 Dose: Not Given Lisinopril (Zestril) 20 mg PO DAILY [facility] Last Admin: 02/23/18 09:21 Dose: 20 mg Ondansetron HCl (Zofran Inj) 4 mg IVP ONCE PRN PRN Reason: Nausea/Vomiting Vitamin D (Vitamin D 400 Intl Units Tab) 600 intlu PO DAILY [facility] Last Admin: 02/23/18 09:20 Dose: 600 intlu - Labs Labs: 02/24/18 07:20 02/24/18 07:20 PT 13.7 SECONDS (9.4-12.5) H 02/22/18 15:30 INR 1.20 (0.93-1.08) H 02/22/18 15:30 APTT 28.4 Seconds (25.1-36.5) 02/22/18 15:30 Attending/Attestation - Attestation I have personally seen and examined this patient.: Yes I have fully participated in the care of the patient.: Yes I have reviewed all pertinent clinical information, including history, physical exam and plan: Yes Notes (Text): 02/24/18 13:55 Medical record note made by the resident after discussion with my direction and input after the patient was personally seen and examined by me. I have reviewed the chart and agree that the record accurately reflects by personal performance of the history, physical exam, data review, and medical decision-making, in the course for the patient. I have also personally directed the plan of care. 62 years old male with PMH DM,HTN,PVD,SP left anterior tibial A angioplasty , SP 5th ray resection with infected ulcerations to left foot followed by wound debridement. 6 weeks back , Zyvox for 6 weeks is admitted with worsening left foot wound, X rays and MRI finding are suggestive of ostemylitis of 4th meta tarsal and proximal phalanx , on IV Vancomycin and Zosyn.Wound cultures are growing MSSA. Normocytic normochromic anemia 2nd to anemia of chronic disease, hemoglobin is stable. Management plan was discussed in detail with patient. Education was provided.
[2018-02-23] MEDS: Enoxaparin 40 mg Syringe SC SCH (09:18)
[2018-02-23] MEDS: Vancomycin 1gm in NS 250ml 1 GM/250 ML BAG IVPB SCH ×2 (09:19→21:45)
[2018-02-23] MEDS: Cholecalciferol 400 Intl Units Tab PO SCH (09:20)
--- NOTE | 2018-02-23 10:15 | CP.PCM.PN ---
Subjective - Date & Time of Evaluation Date of Evaluation: 02/23/18 Time of Evaluation: 10:12 - Subjective Subjective: Podiatry Progress Note- Dr. Jian Jauregui 62 y/o male seen and evaluated at bedside this morning regarding left dorsolateral forefoot ulcer. Pt denies any fever overnight - however per chart review, pt febrile at 100.6 around 11pm. Pt denies any pain in the left foot today except for when pressure is applied. States his dressing partially came off since being seen in the ED yesterday. Denies chills, N/V, CP/SOB. States he is waiting to have his MRI done but had xray completed yesterday. Objective - Vital Signs/Intake and Output Vital Signs (last 24 hours): Temp Pulse Resp BP Pulse Ox 99.5 F 59 L 20 159/79 H 94 L 02/23/18 06:00 02/23/18 06:00 02/23/18 06:00 02/23/18 09:18 02/23/18 06:00 Intake and Output: 02/23/18 02/23/18 06:59 18:59 Intake Total 740 Output Total 550 Balance 190 - Medications Medications: Current Medications Amlodipine Besylate (Norvasc) 10 mg PO DAILY [facility] Last Admin: 02/23/18 09:18 Dose: 10 mg Aspirin (Ecotrin) 81 mg PO DAILY [facility] Atorvastatin Calcium (Lipitor) 80 mg PO DIN [facility] Dextrose (Dextrose 50% Inj) 0 ml IV STAT PRN; Protocol PRN Reason: Hypoglycemia Protocol Enoxaparin Sodium (Lovenox) 40 mg SC DAILY [facility] PRN Reason: Protocol Last Admin: 02/23/18 09:18 Dose: 40 mg Dextrose (Dextrose 5% In Water 1000 Ml) 1,000 mls @ 0 mls/hr IV .Q0M PRN; Protocol; Per Protocol PRN Reason: Hypoglycemia Protocol Piperacillin Sod/Tazobactam Sod (Zosyn 3.375 In Ns 100ml) 100 mls @ 200 mls/hr IVPB Q6 [facility] PRN Reason: Protocol Stop: 03/02/18 00:01 Last Admin: 02/23/18 05:40 Dose: 200 mls/hr Vancomycin HCl (Vancomycin 1gm) 1 gm in 250 mls @ 167 mls/hr IVPB Q12 [facility] PRN Reason: Protocol Last Admin: 02/23/18 09:19 Dose: 167 mls/hr Insulin Human Regular (Humulin R) 0 units SC ACHS [facility] PRN Reason: Protocol Last Admin: 02/23/18 08:17 Dose: 3 units Lisinopril (Zestril) 20 mg PO DAILY [facility] Last Admin: 02/23/18 09:21 Dose: 20 mg Vitamin D (Vitamin D 400 Intl Units Tab) 600 intlu PO DAILY [facility] Last Admin: 02/23/18 09:20 Dose: 600 intlu - Labs Labs: 02/23/18 06:40 02/23/18 06:40 PT 13.7 SECONDS (9.4-12.5) H 02/22/18 15:30 INR 1.20 (0.93-1.08) H 02/22/18 15:30 APTT 28.4 Seconds (25.1-36.5) 02/22/18 15:30 - Constitutional Appears: Well, Non-toxic, No Acute Distress - Extremities Exam Additional comments: Left lower extremity focused exam: Vasc: DP/PT pulses palpable 1/4. Temperature gradient warm to warm. Pedal hair growth absent. CFT < 3 sec x 4 digit, unable to assess to 5th digit Derm: Open ulceration noted to dorsolateral forefoot proximal to 5th digit measuring approx 4.5cm x 2.8cm x 0.7cm with fibrogranular wound base, extending down to level of deep fascia. Additional 5cc of purulent drainage expressed todaywith pressure. Significant malodor is noted. Hypopigmentation noted to skin plantar to ulceration site. Mild fluctuance noted to jaida wound area. Wound probes deep to tendinous structures. Additional superficial hyperkeratotic lesion noted sub met 1 with no break in skin or soft tissue noted. Hyperpigmentation noted to dorsum of foot. Neuro: Protective sensation grossly diminished Ortho: No tenderness to palpation of ulceration site - Neurological Exam Neurological Exam: Alert, Awake, Oriented x3 - Psychiatric Exam Psychiatric exam: Normal Affect, Normal Mood Assessment and Plan - Assessment and Plan (Free Text) Assessment: 62 y/o diabetic male with left forefoot ulceration, clinically infected Plan: Pt seen and evaluated at bedside Discussed with attending Dr. Juventino Rogers foot x-rays reveal possible septic arthritis at 4th MPJ with erosive changes and subluxation of joint noted Left foot MRI pending, evaluate for possible abscess ESR ordered Arterial duplex studies from 12/05/17 reveal resting ABIs of 1.24(R) and 1.04(L) Dr. Jack consulted for vascular evaluation, appreciate recommendations Continue IV abx per ID Wound culture of L foot ulcer pending Wound cleaned with saline and dressed with betadine, DSD Surgical shoe for L foot, pt may fully bear weight as needed (to/from bathroom) - pt advised to minimally weight bear to keep pressure off ulceration site Pt added on to OR schedule for debridement tomorrow at 11am Pt to be NPO after midnight Medical clearance requested at this time Will continue to follow while in house
--- NOTE | 2018-02-23 12:37 | MRI ---
Date of service: 02/23/2018 PROCEDURE: MRI of the left foot without contrast HISTORY: left foot septic arthritis; suspect osteo COMPARISON: Plain film dated 02/22/2018 TECHNIQUE: MRI of the left foot was performed in multiple planes using multiple pulse sequences. FINDINGS: There is osteomyelitis of the 4th metatarsal and proximal phalanx. There is bony destruction of the metatarsal head. There is marrow edema throughout the metatarsal and proximal phalanx. There is also soft tissue swelling and edema. There is also some marrow edema and questionable cortical destruction in the head of the 3rd metatarsal. This finding is seen on image 17 series 7. IMPRESSION: Osteomyelitis of the 4th metatarsal and proximal phalanx and questionable osteomyelitis of the 3rd metatarsal
--- NOTE | 2018-02-23 16:06 | CP.PCM.PCO ---
Addendum Addendum: 02/23/18 16:05 pt is a 62 yo m ho cad, htn, dm scheduled for debridement. please document medical optimization prior to procedure.
--- NOTE | 2018-02-23 17:12 | CP.PCM.CON ---
History of Present Illness - History of Present Illness History of Present Illness: 62 year old male with PMH of DM, peripheral neuropathy, CAD, HTN was admitted 2 months ago for left foot 5th toe osteomyelitis with skin and skin structure infection which grew MSSA in the bone and MRSA in the soft tissue and the patient had partial 5th ray amputation and completed 4 weeks of Zyvox as an outpatient. He was doing well after wards and has been following regularly at the wound care center but the patient needed to get wound vacuum placed 2 weeks ago since the wound on his foot was starting to get worse. He is now admitted for further work up and treatment. He also developed fevers. He denies animal contacts, no soaking of feet in water, no headache or dizziness, no chest pain, no SOB, no cough or rhinorrhea, no abdominal pain, no diarrhea, no dysuria. Infectious diseases consult is requested to further evaluate and manage. Review of Systems - Review of Systems All systems: reviewed and no additional remarkable complaints except (as per HPI ) Past Patient History - Infectious Disease Hx of Infectious Diseases: None - Past Social History Smoking Status: Former Smoker - CARDIAC Hx Cardiac Disorders: Yes Hx Hypertension: Yes - PULMONARY Hx Respiratory Disorders: No - NEUROLOGICAL Hx Neurological Disorder: Yes Other/Comment: neuropathy - HEENT Hx HEENT Problems: No - RENAL Hx Chronic Kidney Disease: No - ENDOCRINE/METABOLIC Hx Endocrine Disorders: Yes Hx Diabetes Mellitus Type 1: Yes - HEMATOLOGICAL/ONCOLOGICAL Hx Blood Disorders: No - INTEGUMENTARY Hx Dermatological Problems: Yes Other/Comment: LEFT GREAT TOE DISCOLORED - MUSCULOSKELETAL/RHEUMATOLOGICAL Hx Musculoskeletal Disorders: No - GASTROINTESTINAL Hx Gastrointestinal Disorders: No - GENITOURINARY/GYNECOLOGICAL Hx Genitourinary Disorders: No - PSYCHIATRIC Hx Psychophysiologic Disorder: No - SURGICAL HISTORY Hx Amputation: Yes (Left fifth toe) Hx Musculoskeletal Surgery: Yes (Left fifth toe amputation) - ANESTHESIA Hx Anesthesia Reactions: No Hx Malignant Hyperthermia: No Meds Allergies/Adverse Reactions: Allergies Allergy/AdvReac Type Severity Reaction Status Date / Time No Known Allergies Allergy Verified 02/22/18 14:30 - Medications Medications: Current Medications Amlodipine Besylate (Norvasc) 10 mg PO DAILY [facility] Dextrose (Dextrose 50% Inj) 0 ml IV STAT PRN; Protocol PRN Reason: Hypoglycemia Protocol Enoxaparin Sodium (Lovenox) 40 mg SC DAILY [facility] PRN Reason: Protocol Dextrose (Dextrose 5% In Water 1000 Ml) 1,000 mls @ 0 mls/hr IV .Q0M PRN; Protocol; Per Protocol PRN Reason: Hypoglycemia Protocol Piperacillin Sod/Tazobactam Sod (Zosyn 3.375 In Ns 100ml) 100 mls @ 200 mls/hr IVPB Q6 [facility] PRN Reason: Protocol Stop: 02/23/18 06:29 Vancomycin HCl (Vancomycin 1gm) 1 gm in 250 mls @ 167 mls/hr IVPB Q12 [facility] PRN Reason: Protocol Last Admin: 02/22/18 21:31 Dose: 167 mls/hr Insulin Human Regular (Humulin R) 0 units SC ACHS [facility] PRN Reason: Protocol Last Admin: 02/22/18 22:47 Dose: Not Given Lisinopril (Zestril) 20 mg PO DAILY [facility] Vitamin D (Vitamin D 400 Intl Units Tab) 600 intlu PO DAILY [facility] Physical Exam - Constitutional Appears: Chronically Ill - Head Exam Head Exam: NORMAL INSPECTION - ENT Exam ENT Exam: Mucous Membranes Moist - Neck Exam Neck exam: Negative for: Meningismus - Respiratory Exam Respiratory Exam: Decreased Breath Sounds - Cardiovascular Exam Cardiovascular Exam: +S1, +S2 - GI/Abdominal Exam GI & Abdominal Exam: Soft. absent: Tenderness - Extremities Exam Additional comments: left foot with dressings in place Results - Vital Signs Recent Vital Signs: Last Vital Signs Temp 100.6 F H 02/22/18 22:42 Pulse 65 02/22/18 22:42 Resp 18 02/22/18 22:42 BP 139/78 02/22/18 22:42 Pulse Ox 97 02/22/18 22:42 - Labs Result Diagrams: 02/23/18 06:40 02/23/18 06:40 Labs: Laboratory Results - last 24 hr 02/22/18 02/22/18 02/22/18 16:48 16:49 17:00 pO2 53 VBG pH 7.39 VBG pCO2 48.0 VBG HCO3 29.1 H VBG Total CO2 30.6 H VBG O2 Sat (Calc) 89.2 H VBG Base Excess 3.3 H VBG Potassium 4.0 Sodium 136.0 Chloride 104.0 Glucose 191 H Lactate 1.2 FiO2 21.0 POC Glucose (mg/dL) Venous Blood Potassium 4.0 Blood Type A POSITIVE Blood Type Confirm A POSITIVE Antibody Screen Negative BBK History Checked No verified bt 02/22/18 21:17 pO2 VBG pH VBG pCO2 VBG HCO3 VBG Total CO2 VBG O2 Sat (Calc) VBG Base Excess VBG Potassium Sodium Chloride Glucose Lactate FiO2 POC Glucose (mg/dL) 242 H Venous Blood Potassium Blood Type Blood Type Confirm Antibody Screen BBK History Checked Assessment & Plan - Assessment and Plan (Free Text) Plan: Assessment consider sepsis due to left foot skin and skin structure infection R/O osteomyelitis history of left foot 5th toe osteomyelitis with skin and skin structure infection, growing MRSA in the soft tissue and MSSA in the bone S/P partial 5th ray amputation and debridement of tissue S/P treatment with 6 weeks of Zyvox DM peripheral neuropathy CAD HTN Plan started Vancoymcin and Zosyn pending blood and wound cx; may need further imaging of the foot and MYRON's follow up further plans of Podiatry will monitor clinically
[2018-02-23] MEDS: Insulin Detemir 100 units/ml Vial (Levemir) SC SCH (21:45)
[2018-02-24] MEDS: Piperacillin/Tazobact 3.375 gm 100 ML IVPB SCH ×5 (00:37→23:00)
--- NOTE | 2018-02-24 06:15 | CP.PCM.PN ---
<Lencho Erickson - Last Filed: 02/24/18 16:36> Subjective - Date & Time of Evaluation Date of Evaluation: 02/24/18 Time of Evaluation: 06:11 - Subjective Subjective: Lencho Erickson DO - PGY 1 [employer] Associate - Medicine Progress Note Pt. was seen this AM at bedside only reported complaints of spitting up NBNB vomitus last night 2/2 gerd like symptoms. Patient denies any fever, chills, chest pain, sob, cough, abd pain, N/D/C, hematuria/dysuria at this time. Pt. is scheduled for debridement of L foot at 11AM today w/ Dr. Jauregui. His CXR and EKG during this admission were within normal limits. Denies having any issue w/ anesthesia, intubation, or surgical procedures in the past. Objective - Vital Signs/Intake and Output Vital Signs (last 24 hours): Temp Pulse Resp BP Pulse Ox 98.4 F 81 20 134/72 94 L 02/23/18 22:00 02/23/18 22:00 02/23/18 22:00 02/23/18 22:00 02/23/18 22:00 Intake and Output: 02/23/18 02/24/18 18:59 06:59 Intake Total 620 Output Total 650 Balance -30 - Medications Medications: Current Medications Amlodipine Besylate (Norvasc) 10 mg PO DAILY [facility] Last Admin: 02/23/18 09:18 Dose: 10 mg Aspirin (Ecotrin) 81 mg PO DAILY [facility] Last Admin: 02/23/18 10:56 Dose: 81 mg Atorvastatin Calcium (Lipitor) 80 mg PO DIN [facility] Last Admin: 02/23/18 17:51 Dose: 80 mg Dextrose (Dextrose 50% Inj) 0 ml IV STAT PRN; Protocol PRN Reason: Hypoglycemia Protocol Enoxaparin Sodium (Lovenox) 40 mg SC DAILY [facility] PRN Reason: Protocol Last Admin: 02/23/18 09:18 Dose: 40 mg Dextrose (Dextrose 5% In Water 1000 Ml) 1,000 mls @ 0 mls/hr IV .Q0M PRN; Protocol; Per Protocol PRN Reason: Hypoglycemia Protocol Piperacillin Sod/Tazobactam Sod (Zosyn 3.375 In Ns 100ml) 100 mls @ 200 mls/hr IVPB Q6 [facility] PRN Reason: Protocol Stop: 03/02/18 00:01 Last Admin: 02/24/18 00:37 Dose: 200 mls/hr Vancomycin HCl (Vancomycin 1gm) 1 gm in 250 mls @ 167 mls/hr IVPB Q12 [facility] PRN Reason: Protocol Last Admin: 02/23/18 21:45 Dose: 167 mls/hr Insulin Detemir (Levemir) 8 unit SC HS [facility] Last Admin: 02/23/18 21:45 Dose: 8 units Insulin Human Regular (Humulin R) 0 units SC ACHS [facility] PRN Reason: Protocol Last Admin: 02/23/18 21:44 Dose: Not Given Lisinopril (Zestril) 20 mg PO DAILY [facility] Last Admin: 02/23/18 09:21 Dose: 20 mg Vitamin D (Vitamin D 400 Intl Units Tab) 600 intlu PO DAILY [facility] Last Admin: 02/23/18 09:20 Dose: 600 intlu - Labs Labs: 02/23/18 06:40 02/23/18 06:40 PT 13.7 SECONDS (9.4-12.5) H 02/22/18 15:30 INR 1.20 (0.93-1.08) H 02/22/18 15:30 APTT 28.4 Seconds (25.1-36.5) 02/22/18 15:30 - Constitutional Appears: Well, No Acute Distress - Head Exam Head Exam: ATRAUMATIC, NORMOCEPHALIC - Eye Exam Eye Exam: EOMI, PERRL. absent: Scleral icterus - ENT Exam ENT Exam: Mucous Membranes Moist, Normal Exam - Respiratory Exam Respiratory Exam: Clear to Ausculation Bilateral, NORMAL BREATHING PATTERN. absent: Rhonchi, Wheezes - Cardiovascular Exam Cardiovascular Exam: REGULAR RHYTHM, RRR, +S1, +S2. absent: Murmur - GI/Abdominal Exam GI & Abdominal Exam: Soft, Normal Bowel Sounds. absent: Tenderness - Extremities Exam Additional comments: Diminished pedal pulses BL; 3x4cm open ulceration in the L anterior metatarsal, lateral to the fourth digit extending to the dorsum of the foot. Lesion is draining, and mucopurulent; extending down into 5th and 4th metatarsal. - Back Exam Back Exam: absent: CVA tenderness (L), CVA tenderness (R) - Neurological Exam Neurological Exam: Alert, Awake, CN II-XII Intact, Oriented x3 - Psychiatric Exam Psychiatric exam: Normal Affect, Normal Mood Assessment and Plan - Assessment and Plan (Free Text) Assessment: 62M w/ PMH of DM2, PVD, CAD, HTN, Chronic neuropathy, Osteomyelitis s/p Left 5th metatarsal amputation 12/01, and s/p debridement + L anterior tibial angioplasty 12/31 admitted for chronic L anterior foot ulceration worsening x 1 week. Plan: Osteomyelitis of L 3rd and 4th digits Patient is s/p L 5th metatarsal amputation (11/2017) and debridement + anterior tibial angioplasty (12/2017) 2/2 poor vascularization On exam L dorsal foot ulceration to bone w/ purulent drainage present Patient was afebrile overnight; No leukocytosis on labs this morning Reviewed L foot xray - showing involvement of 4th metatarsal Reviewed L foot MRI - Osteomyelitis of the 4th phalanx and questionable osteomyelitis of the 3rd metatarsal Patient on empiric IV Vancomycin 1gm Q12 and Piperacillin/Tazobactam - Day 2 Wound culture + for MSSA; Podiatry following performed L foot trans metatarsal amputation ID following Vascular surgery following, recommendations appreciated Wound care following Normocytic Anemia: Most likely 2/2 to Anemia of Chronic disease; asymptomatic Hb on admission low; MCV normal; Ferritin elevated; Retic Count normal Hb stable this AM Hx Type 2 Diabetes Fasting glucose 154 this AM; improved from admission Continue Home Levemir 8 QHS Continue on ISS Regular A1C on 02/21 was 8.5, improved from 9.4 on 01/07 Hx Hypertension Reviewed at home blood pressure medications Continued home Lisinopril 20 QD and amlodipine 10 QD Hx PVD s/p angioplasty 12/2017 a Interventional radiology consulted [id number] Atorvastatin 80 CAD As above Prophylaxis DVT/ GI - Lovenox/ Protonix Patient seen & examined, and discussed at length with attending Dr. Aureliano Erickson DO - PGY1 IM [employer] - [employer]AGER [id number] <Arslan Bedoya - Last Filed: 02/26/18 11:14> Objective - Vital Signs/Intake and Output Vital Signs (last 24 hours): Temp Pulse Resp BP Pulse Ox 99.6 F 66 70 H 155/77 H 98 02/26/18 07:00 02/26/18 09:52 02/26/18 07:00 02/26/18 09:52 02/26/18 07:00 Intake and Output: 02/26/18 02/26/18 06:59 18:59 Intake Total 360 Output Total 700 Balance -340 - Medications Medications: Current Medications Amlodipine Besylate (Norvasc) 10 mg PO DAILY [facility] Last Admin: 02/26/18 09:51 Dose: 10 mg Aspirin (Ecotrin) 81 mg PO DAILY [facility] Last Admin: 02/26/18 11:07 Dose: 81 mg Atorvastatin Calcium (Lipitor) 80 mg PO DIN [facility] Last Admin: 02/24/18 16:50 Dose: 80 mg Benzocaine/Menthol (Cepacol Sore Throat) 1 allie MT Q2H PRN PRN Reason: Sore Throat Last Admin: 02/24/18 15:37 Dose: 1 allie Dextrose (Dextrose 50% Inj) 0 ml IV STAT PRN; Protocol PRN Reason: Hypoglycemia Protocol Enoxaparin Sodium (Lovenox) 40 mg SC DAILY [facility] PRN Reason: Protocol Last Admin: 02/24/18 15:45 Dose: Not Given Dextrose (Dextrose 5% In Water 1000 Ml) 1,000 mls @ 0 mls/hr IV .Q0M PRN; Protocol; Per Protocol PRN Reason: Hypoglycemia Protocol Piperacillin Sod/Tazobactam Sod (Zosyn 3.375 In Ns 100ml) 100 mls @ 200 mls/hr IVPB Q6 [facility] PRN Reason: Protocol Stop: 03/02/18 00:01 Last Admin: 02/26/18 11:07 Dose: 200 mls/hr Vancomycin HCl (Vancomycin 1gm) 1 gm in 250 mls @ 167 mls/hr IVPB Q12 [facility] PRN Reason: Protocol Last Admin: 02/26/18 09:50 Dose: 167 mls/hr Insulin Detemir (Levemir) 10 unit SC HS [facility] Last Admin: 02/25/18 21:43 Dose: 10 units Insulin Human Regular (Humulin R) 0 units SC ACHS [facility] PRN Reason: Protocol Last Admin: 02/26/18 08:10 Dose: Not Given Lisinopril (Zestril) 20 mg PO DAILY [facility] Last Admin: 02/26/18 09:52 Dose: 20 mg Ondansetron HCl (Zofran Inj) 4 mg IVP ONCE PRN PRN Reason: Nausea/Vomiting Vitamin D (Vitamin D 400 Intl Units Tab) 600 intlu PO DAILY [facility] Last Admin: 02/26/18 10:06 Dose: 600 intlu - Labs Labs: 02/26/18 06:40 02/26/18 06:40 PT 13.7 SECONDS (9.4-12.5) H 02/22/18 15:30 INR 1.20 (0.93-1.08) H 02/22/18 15:30 APTT 28.4 Seconds (25.1-36.5) 02/22/18 15:30 Attending/Attestation - Attestation I have personally seen and examined this patient.: Yes I have fully participated in the care of the patient.: Yes I have reviewed all pertinent clinical information, including history, physical exam and plan: Yes Notes (Text): 02/26/18 11:13 Medical record note made by the resident after discussion with my direction and input after the patient was personally seen and examined by me. I have reviewed the chart and agree that the record accurately reflects by personal performance of the history, physical exam, data review, and medical decision-making, in the course for the patient. I have also personally directed the plan of care. 62 years old male with PMH DM,HTN,PVD,SP left anterior tibial A angioplasty , SP 5th ray resection with infected ulcerations to left foot followed by wound debridement. 6 weeks back , Zyvox for 6 weeks WAS admitted with worsening left foot wound, X rays and MRI finding were suggestive of ostemylitis of 4th meta tarsal and proximal phalanx , on IV Vancomycin and Zosyn.Wound cultures are growing MSSA.Patient is scheduled for trans meta tarsal amputation today by Podiatry. Normocytic normochromic anemia 2nd to anemia of chronic disease, hemoglobin is stable. Management plan was discussed in detail with patient. Education was provided.
[2018-02-24 07:45] LABS: BASO # 0.03 K/mm3 (0.0-2.0); BASO % 0.3 % (0.0-3.0); EOS # 0.1 (0.0-0.7); EOS % 1.1 % (1.5-5.0); GRAN # 8.25 (1.4-6.5); GRAN % 72.5 % (50.0-68.0); HEMOGLOBIN 9.3 g/dL (14.0-18.0); LYMPH # 2.3 (1.2-3.4); LYMPH % 20.4 % (22.0-35.0); MEAN CELL VOLUME 87.9 fl (80.0-105.0); MEAN CORPUSCULAR HEMOGLOBIN 29.7 pg (25.0-35.0); MEAN CORPUSCULAR HGB CONC 33.8 g/dl (31.0-37.0); MEAN PLATELET VOLUME 9.1 fl (7.0-11.0); MONO # 0.7 (0.1-0.6); MONO % 5.7 % (1.0-6.0); RBC 3.13 10^6/uL (3.5-6.1); RED CELL DISTRIBUTION WIDTH 13.6 % (11.5-14.5); WHITE BLOOD COUNT 11.4 10^3/ul (4.5-11.0)
[2018-02-24 07:55] LABS: ALB/GLOB RATIO 0.9 (1.1-1.8); ALBUMIN 3.3 g/dL (3.0-4.8); ALT/SGPT 31 U/L (7-56); AST/SGOT 17 U/L (17-59); BLOOD UREA NITROGEN 14 mg/dL (7-21); CALCIUM 8.4 mg/dL (8.4-10.5); GFR AFRICAN-AMERICAN > 60; GFR NON-AFRICAN AMERICAN > 60
[2018-02-24] MEDS: Vancomycin 1gm in NS 250ml 1 GM/250 ML BAG IVPB SCH ×2 (09:36→21:06)
--- NOTE | 2018-02-24 09:39 | CP.PCM.PN ---
Subjective - Date & Time of Evaluation Date of Evaluation: 02/24/18 Time of Evaluation: 09:39 - Subjective Subjective: 62 y/o male seen at bedside this morning with attending Dr. Jauregui. Pt is aware of surgery today of wound debridement vs transmetatarsal amputation. Pt states he wants to have whatever done that is necessary to get rid of his infection. He understands that the bone infection has spread now. He confirms NPO status after midnight last night. Denies F/C/N/V/CP/SOB Objective - Vital Signs/Intake and Output Vital Signs (last 24 hours): Temp Pulse Resp BP Pulse Ox 99 F 61 20 136/73 95 02/24/18 06:00 02/24/18 06:00 02/24/18 06:00 02/24/18 06:00 02/24/18 06:00 Intake and Output: 02/24/18 02/24/18 06:59 18:59 Intake Total 620 Output Total 650 Balance -30 - Medications Medications: Current Medications Amlodipine Besylate (Norvasc) 10 mg PO DAILY [facility] Last Admin: 02/23/18 09:18 Dose: 10 mg Aspirin (Ecotrin) 81 mg PO DAILY [facility] Last Admin: 02/23/18 10:56 Dose: 81 mg Atorvastatin Calcium (Lipitor) 80 mg PO DIN [facility] Last Admin: 02/23/18 17:51 Dose: 80 mg Dextrose (Dextrose 50% Inj) 0 ml IV STAT PRN; Protocol PRN Reason: Hypoglycemia Protocol Enoxaparin Sodium (Lovenox) 40 mg SC DAILY [facility] PRN Reason: Protocol Last Admin: 02/23/18 09:18 Dose: 40 mg Dextrose (Dextrose 5% In Water 1000 Ml) 1,000 mls @ 0 mls/hr IV .Q0M PRN; Protocol; Per Protocol PRN Reason: Hypoglycemia Protocol Piperacillin Sod/Tazobactam Sod (Zosyn 3.375 In Ns 100ml) 100 mls @ 200 mls/hr IVPB Q6 [facility] PRN Reason: Protocol Stop: 03/02/18 00:01 Last Admin: 02/24/18 06:26 Dose: 200 mls/hr Vancomycin HCl (Vancomycin 1gm) 1 gm in 250 mls @ 167 mls/hr IVPB Q12 [facility] PRN Reason: Protocol Last Admin: 02/24/18 09:36 Dose: 167 mls/hr Insulin Detemir (Levemir) [address] [facility] Last Admin: 02/23/18 21:45 Dose: 8 units Insulin Human Regular (Humulin R) 0 units SC [facility] PRN Reason: Protocol Last Admin: 02/23/18 21:44 Dose: Not Given Lisinopril (Zestril) 20 mg PO DAILY [facility] Last Admin: 02/23/18 09:21 Dose: 20 mg Vitamin D (Vitamin D 400 Intl Units Tab) 600 intlu PO DAILY [facility] Last Admin: 02/23/18 09:20 Dose: 600 intlu - Labs Labs: 02/24/18 07:20 02/24/18 07:20 PT 13.7 SECONDS (9.4-12.5) H 02/22/18 15:30 INR 1.20 (0.93-1.08) H 02/22/18 15:30 APTT 28.4 Seconds (25.1-36.5) 02/22/18 15:30 - Constitutional Appears: Well, Non-toxic, No Acute Distress - Extremities Exam Additional comments: dressing to L foot intact with serosanguinous strikethrough noted, malodor noted - Neurological Exam Neurological Exam: Alert, Awake, Oriented x3 - Psychiatric Exam Psychiatric exam: Normal Affect, Normal Mood Assessment and Plan - Assessment and Plan (Free Text) Assessment: Pt seen and evaluated in same day surgery holding area NPO status confirmed ANti-coagulants held yesterday Spoke with Dr. Jack who confirms good blood flow runoff to foot and agrees to proceed with transmetatarsal amputation Spoke to resident of Dr. Bedoya - Dr Erickson - confirms pt is moderate risk for procedure Pt will remain in house postoperatively IV abx being received on floors
--- NOTE | 2018-02-24 10:47 | US ---
PROCEDURE: Lower extremity MYRON exam HISTORY: Peripheral vascular disease with pain and claudication. PHYSICIAN(S): Willam Jack MD. FINDINGS: The resting MYRON's are normal: right, and left, . The brachial systolic pressures are symmetric. The high thigh pressures and waveforms are relatively normal. The calf PVR waveforms augment normally. No significant gradients are noted across the thighs. The ankle and metatarsal waveforms are relatively normal and symmetric. No significant pressure gradients are noted across the lower legs. IMPRESSION: 1. Normal MYRON and PVR examination at rest.
[2018-02-24] MEDS ORDERED: Midazolam 2 MG/2 ML VIAL ONE (10:58)
[2018-02-24] MEDS ORDERED: Propofol 10 mg/ml Inj (20 ML) ONE (10:58)
[2018-02-24] MEDS ORDERED: Lidocaine 1% Inj (20ml) ONE ×2 (10:59→11:15)
[2018-02-24] MEDS ORDERED: Bupivacaine 0.5% Inj(30mL) ONE (10:59)
--- NOTE | 2018-02-24 11:05 | CP.PCM.PCO ---
<Mario Bowens - Last Filed: 02/24/18 11:04> Physician Communication Note - Physician Communication Note Physician Communication Note: Patient is moderate risk for moderate risk procedure. May undergo. <Arslan Bedoya - Last Filed: 02/24/18 13:42> Physician Communication Note - Physician Communication Note Physician Communication Note: Patient is moderate risk for moderate risk procedure. can undergo surgery
[2018-02-24] MEDS ORDERED: ePHEDrine 50 mg/ml Inj ONE (11:28)
[2018-02-24] MEDS ORDERED: Lidocaine 1% Inj (20ml) IJ ONE (11:45)
[2018-02-24] MEDS ORDERED: HYDROmorphone 0.5 mg/0.5 ml ISec IVP PRN (12:31)
[2018-02-24] MEDS ORDERED: Sodium Chloride 0.9% 1,000 ML IV SCH (12:45)
--- NOTE | 2018-02-24 13:34 | CP.PCM.PN ---
Subjective - Date & Time of Evaluation Date of Evaluation: 02/24/18 Time of Evaluation: 10:10 - Subjective Subjective: Still with pain in the left foot, no fevers. Objective - Vital Signs/Intake and Output Vital Signs (last 24 hours): Temp Pulse Resp BP Pulse Ox 99 F 61 20 136/73 95 02/24/18 06:00 02/24/18 06:00 02/24/18 06:00 02/24/18 06:00 02/24/18 06:00 Intake and Output: 02/24/18 02/24/18 06:59 18:59 Intake Total 620 Output Total 650 Balance -30 - Medications Medications: Current Medications Amlodipine Besylate (Norvasc) 10 mg PO DAILY [facility] Last Admin: 02/23/18 09:18 Dose: 10 mg Aspirin (Ecotrin) 81 mg PO DAILY [facility] Last Admin: 02/23/18 10:56 Dose: 81 mg Atorvastatin Calcium (Lipitor) 80 mg PO DIN [facility] Last Admin: 02/23/18 17:51 Dose: 80 mg Dextrose (Dextrose 50% Inj) 0 ml IV STAT PRN; Protocol PRN Reason: Hypoglycemia Protocol Enoxaparin Sodium (Lovenox) 40 mg SC DAILY [facility] PRN Reason: Protocol Last Admin: 02/23/18 09:18 Dose: 40 mg Dextrose (Dextrose 5% In Water 1000 Ml) 1,000 mls @ 0 mls/hr IV .Q0M PRN; Protocol; Per Protocol PRN Reason: Hypoglycemia Protocol Piperacillin Sod/Tazobactam Sod (Zosyn 3.375 In Ns 100ml) 100 mls @ 200 mls/hr IVPB Q6 [facility] PRN Reason: Protocol Stop: 03/02/18 00:01 Last Admin: 02/24/18 06:26 Dose: 200 mls/hr Vancomycin HCl (Vancomycin 1gm) 1 gm in 250 mls @ 167 mls/hr IVPB Q12 [facility] PRN Reason: Protocol Last Admin: 02/23/18 21:45 Dose: 167 mls/hr Insulin Detemir (Levemir) 8 unit SC HS [facility] Last Admin: 02/23/18 21:45 Dose: 8 units Insulin Human Regular (Humulin R) 0 units SC ACHS [facility] PRN Reason: Protocol Last Admin: 02/23/18 21:44 Dose: Not Given Lisinopril (Zestril) 20 mg PO DAILY [facility] Last Admin: 02/23/18 09:21 Dose: 20 mg Vitamin D (Vitamin D 400 Intl Units Tab) 600 intlu PO DAILY [facility] Last Admin: 02/23/18 09:20 Dose: 600 intlu - Labs Labs: 02/24/18 07:20 02/24/18 07:20 PT 13.7 SECONDS (9.4-12.5) H 02/22/18 15:30 INR 1.20 (0.93-1.08) H 02/22/18 15:30 APTT 28.4 Seconds (25.1-36.5) 02/22/18 15:30 - Constitutional Appears: Chronically Ill - Head Exam Head Exam: NORMAL INSPECTION - Respiratory Exam Respiratory Exam: Decreased Breath Sounds - Cardiovascular Exam Cardiovascular Exam: +S1, +S2 - GI/Abdominal Exam GI & Abdominal Exam: Soft. absent: Tenderness Assessment and Plan - Assessment and Plan (Free Text) Plan: Assessment consider sepsis due to left foot skin and skin structure infection with 3rd and 4th metatarsal osteomyelitis history of left foot 5th toe osteomyelitis with skin and skin structure infection, growing MRSA in the soft tissue and MSSA in the bone S/P partial 5th ray amputation and debridement of tissue S/P treatment with 6 weeks of Zyvox DM peripheral neuropathy CAD HTN Plan continue Vancoymcin and Zosyn pending blood and wound cx; reviewed MRI of the left foot follow up further plans of Podiatry will continue to monitor clinically
--- NOTE | 2018-02-24 13:38 | PCM.SURG1 ---
Surgeon's Initial Post Op Note - Surgeon's Notes Surgeon: Dr. Jian Jauregui Cold Food Packer: Dr. Sammi Ortiz Type of Anesthesia: IV Sedation, Local Anesthesia Administered By: Dr. Cotton/Dr. Hendrix Pre-Operative Diagnosis: left foot non-healing diabetic ulcer with osteomyelitis of 3rd and 4th metatarsals Operative Findings: see operative report. I: 30cc 2% Lidocaine plain. M: 3-0 Vicryl, 2-0 Nylon, 3-0 Nylon Post-Operative Diagnosis: same Operation Performed: left foot transmetarsal amputation Specimen/Specimens Removed: left foot bone and soft tissue Estimated Blood Loss: EBL {In ML}: 25 Blood Products Given: N/A Drains Used: No Drains Post-Op Condition: Good Date of Surgery/Procedure: 02/24/18 Time of Surgery/Procedure: 13:38
[2018-02-24] MEDS ORDERED: Benzocaine/Menthol (Cepacol) Lozenge MT PRN (15:15)
[2018-02-24] MEDS: Enoxaparin 40 mg Syringe SC SCH (15:45)
[2018-02-24] MEDS: Insulin Regular 1 UNITS/0.01 ML ML SC SCH ×3 (15:45→21:49)
[2018-02-24] MEDS: Cholecalciferol 400 Intl Units Tab PO SCH (17:21)
--- NOTE | 2018-02-24 17:24 | RAD ---
Date of service: 02/24/2018 PROCEDURE: Left Foot Radiographs. HISTORY: s/p trans met amputation COMPARISON: MRI left foot dated 02/23/2018. FINDINGS: BONES: Transmetatarsal amputation. JOINTS: Normal. SOFT TISSUES: Postsurgical changes. OTHER FINDINGS: Achilles enthesophyte. IMPRESSION: Status post transmetatarsal amputation.
--- NOTE | 2018-02-24 19:37 | CARD ---
APPROVED REPORT Date of service: 02/24/2018 EKG Measurement Heart [id number] <Conclusion> Sinus bradycardia Otherwise normal ECG
[2018-02-24] MEDS: Insulin Detemir 100 units/ml Vial (Levemir) SC SCH (22:02)
[2018-02-25] MEDS: Piperacillin/Tazobact 3.375 gm 100 ML IVPB SCH ×3 (05:03→17:50)
--- NOTE | 2018-02-25 05:10 | CP.PCM.PN ---
<Lencho Erickson - Last Filed: 02/25/18 19:03> Subjective - Date & Time of Evaluation Date of Evaluation: 02/25/18 Time of Evaluation: 05:09 - Subjective Subjective: Lencho Erickson DO - PGY1 IM Insurance Analyst - Medicine Progress Note Patient seen and evaluated at bedside this AM; No acute events overnight. Nursing reported no concerns this AM. Patient had BM this AM; denies Fever, Chills, CP, Cough, SOB, N/V/D/C. Overall he is tolerating well s/p Transmetatarsal amputation 02/25 POD#1. Objective - Vital Signs/Intake and Output Vital Signs (last 24 hours): Temp Pulse Resp BP Pulse Ox 98.7 F 58 L 16 147/80 98 02/24/18 14:15 02/24/18 15:41 02/24/18 14:15 02/24/18 15:42 02/24/18 14:15 Intake and Output: 02/24/18 02/25/18 18:59 06:59 Intake Total 75 480 Output Total 300 Balance 75 180 - Medications Medications: Current Medications Amlodipine Besylate (Norvasc) 10 mg PO DAILY [facility] Last Admin: 02/24/18 15:42 Dose: 10 mg Aspirin (Ecotrin) 81 mg PO DAILY [facility] Last Admin: 02/24/18 17:21 Dose: 81 mg Atorvastatin Calcium (Lipitor) 80 mg PO DIN [facility] Last Admin: 02/24/18 16:50 Dose: 80 mg Benzocaine/Menthol (Cepacol Sore Throat) 1 allie MT Q2H PRN PRN Reason: Sore Throat Last Admin: 02/24/18 15:37 Dose: 1 allie Dextrose (Dextrose 50% Inj) 0 ml IV STAT PRN; Protocol PRN Reason: Hypoglycemia Protocol Enoxaparin Sodium (Lovenox) 40 mg SC DAILY [facility] PRN Reason: Protocol Last Admin: 02/24/18 15:45 Dose: Not Given Dextrose (Dextrose 5% In Water 1000 Ml) 1,000 mls @ 0 mls/hr IV .Q0M PRN; Protocol; Per Protocol PRN Reason: Hypoglycemia Protocol Piperacillin Sod/Tazobactam Sod (Zosyn 3.375 In Ns 100ml) 100 mls @ 200 mls/hr IVPB Q6 [facility] PRN Reason: Protocol Stop: 03/02/18 00:01 Last Admin: 02/25/18 05:03 Dose: 200 mls/hr Vancomycin HCl (Vancomycin 1gm) 1 gm in 250 mls @ 167 mls/hr IVPB Q12 [facility] PRN Reason: Protocol Last Admin: 02/24/18 21:06 Dose: 167 mls/hr Insulin Detemir (Levemir) 8 unit SC HS [facility] Last Admin: 02/24/18 22:02 Dose: 8 units Insulin Human Regular (Humulin R) 0 units SC ACHS [facility] PRN Reason: Protocol Last Admin: 02/24/18 21:49 Dose: Not Given Lisinopril (Zestril) 20 mg PO DAILY [facility] Last Admin: 02/24/18 15:41 Dose: 20 mg Ondansetron HCl (Zofran Inj) 4 mg IVP ONCE PRN PRN Reason: Nausea/Vomiting Vitamin D (Vitamin D 400 Intl Units Tab) 600 intlu PO DAILY [facility] Last Admin: 02/24/18 17:21 Dose: 600 intlu - Labs Labs: 02/24/18 07:20 02/24/18 07:20 PT 13.7 SECONDS (9.4-12.5) H 02/22/18 15:30 INR 1.20 (0.93-1.08) H 02/22/18 15:30 APTT 28.4 Seconds (25.1-36.5) 02/22/18 15:30 Assessment and Plan - Assessment and Plan (Free Text) Assessment: 62M w/ PMH of DM2, PVD, CAD, HTN, Chronic neuropathy, Osteomyelitis s/p Left 5th metatarsal amputation 12/01, and s/p debridement + L anterior tibial angioplasty 12/31 admitted for chronic L anterior foot ulceration worsening x 1 week. Patient underwent left transmetatarsal amputation today (02/25). Podiatry following post-operatively. Plan: Osteomyelitis L 3rd + 4th digits; Transmetatarsal amputation POD#1 Patient is s/p L 5th metatarsal amputation (11/2017) and debridement + anterior tibial angioplasty (12/2017) 2/2 poor vascularization Pt. Afebrile; leukocytosis ML reactive - continue to monitor Cont Empiric Vanc/Zosyn Day 3 Wound culture + for MSSA; Operative Cultures pending Operative Pathology pending Pod following ID following IR following, recommendations appreciated Wound care following Normocytic Anemia - stable Most likely 2/2 to Anemia of Chronic disease; asymptomatic Hb on admission low; MCV normal; Ferritin elevated; Retic Count normal Hx Type 2 Diabetes Fasting glucose 236 this AM; Levemir increase to 10u Started insulin lispro 75/25 4U Continue on ISS Regular A1C on 02/21 was 8.5, improved from 9.4 on 01/07 Hx Hypertension Reviewed at home blood pressure medications Continued home Lisinopril 20 QD and amlodipine 10 QD Hx PVD s/p angioplasty 12/2017 Interventional radiology consulted [id number] Atorvastatin 80 IR Following CAD As above Prophylaxis DVT/ GI - Lovenox/ Protonix Dispo: Placement pending eval once medically stable Patient seen, examined, and discussed at length w/ attending physician Dr. Aureliano Erickson DO - PGY1 IM Insurance Analyst - Pager [phone] <Arslan Bedoya - Last Filed: 02/26/18 11:17> Objective - Vital Signs/Intake and Output Vital Signs (last 24 hours): Temp Pulse Resp BP Pulse Ox 99.6 F 66 70 H 155/77 H 98 02/26/18 07:00 02/26/18 09:52 02/26/18 07:00 02/26/18 09:52 02/26/18 07:00 Intake and Output: 02/26/18 02/26/18 06:59 18:59 Intake Total 360 Output Total 700 Balance -340 - Medications Medications: Current Medications Amlodipine Besylate (Norvasc) 10 mg PO DAILY [facility] Last Admin: 02/26/18 09:51 Dose: 10 mg Aspirin (Ecotrin) 81 mg PO DAILY [facility] Last Admin: 02/26/18 11:07 Dose: 81 mg Atorvastatin Calcium (Lipitor) 80 mg PO DIN [facility] Last Admin: 02/24/18 16:50 Dose: 80 mg Benzocaine/Menthol (Cepacol Sore Throat) 1 allie MT Q2H PRN PRN Reason: Sore Throat Last Admin: 02/24/18 15:37 Dose: 1 allie Dextrose (Dextrose 50% Inj) 0 ml IV STAT PRN; Protocol PRN Reason: Hypoglycemia Protocol Enoxaparin Sodium (Lovenox) 40 mg SC DAILY [facility] PRN Reason: Protocol Last Admin: 02/24/18 15:45 Dose: Not Given Dextrose (Dextrose 5% In Water 1000 Ml) 1,000 mls @ 0 mls/hr IV .Q0M PRN; Protocol; Per Protocol PRN Reason: Hypoglycemia Protocol Piperacillin Sod/Tazobactam Sod (Zosyn 3.375 In Ns 100ml) 100 mls @ 200 mls/hr IVPB Q6 [facility] PRN Reason: Protocol Stop: 03/02/18 00:01 Last Admin: 02/26/18 11:07 Dose: 200 mls/hr Vancomycin HCl (Vancomycin 1gm) 1 gm in 250 mls @ 167 mls/hr IVPB Q12 [facility] PRN Reason: Protocol Last Admin: 02/26/18 09:50 Dose: 167 mls/hr Insulin Detemir (Levemir) 10 unit SC HS [facility] Last Admin: 02/25/18 21:43 Dose: 10 units Insulin Human Regular (Humulin R) 0 units SC ACHS [facility] PRN Reason: Protocol Last Admin: 02/26/18 08:10 Dose: Not Given Lisinopril (Zestril) 20 mg PO DAILY [facility] Last Admin: 02/26/18 09:52 Dose: 20 mg Ondansetron HCl (Zofran Inj) 4 mg IVP ONCE PRN PRN Reason: Nausea/Vomiting Vitamin D (Vitamin D 400 Intl Units Tab) 600 intlu PO DAILY [facility] Last Admin: 02/26/18 10:06 Dose: 600 intlu - Labs Labs: 02/26/18 06:40 02/26/18 06:40 PT 13.7 SECONDS (9.4-12.5) H 02/22/18 15:30 INR 1.20 (0.93-1.08) H 02/22/18 15:30 APTT 28.4 Seconds (25.1-36.5) 02/22/18 15:30 Attending/Attestation - Attestation I have personally seen and examined this patient.: Yes I have fully participated in the care of the patient.: Yes I have reviewed all pertinent clinical information, including history, physical exam and plan: Yes Notes (Text): 02/26/18 11:15 Medical record note made by the resident after discussion with my direction and input after the patient was personally seen and examined by me. I have reviewed the chart and agree that the record accurately reflects by personal performance of the history, physical exam, data review, and medical decision-making, in the course for the patient. I have also personally directed the plan of care. 62 years old male with PMH DM,HTN,PVD,SP left anterior tibial A angioplasty , SP 5th ray resection with infected ulcerations to left foot followed by wound debridement. 6 weeks back , Zyvox for 6 weeks WAS admitted with worsening left foot wound, X rays and MRI finding were suggestive of ostemylitis of 4th meta tarsal and proximal phalanx , on IV Vancomycin and Zosyn.Wound cultures are growing MSSA.Patient underwent trans meta tarsal amputation by Podiatry.We will follow up pathology results. Normocytic normochromic anemia 2nd to anemia of chronic disease, hemoglobin is mildy low, will monitor hemoglobin and hematocrit. DM. Blood sugars are running high, we will increase levemir dose to 10 units , we will monitor and adjust medications. Management plan was discussed in detail with patient. Education was provided.
[2018-02-25 06:54] LABS: BASO # 0.03 K/mm3 (0.0-2.0); BASO % 0.2 % (0.0-3.0); EOS # 0.2 (0.0-0.7); EOS % 1.1 % (1.5-5.0); GRAN # 10.32 (1.4-6.5); GRAN % 77.3 % (50.0-68.0); HEMOGLOBIN 8.5 g/dL (14.0-18.0); LYMPH # 1.7 (1.2-3.4); LYMPH % 12.9 % (22.0-35.0); MEAN CELL VOLUME 87.2 fl (80.0-105.0); MEAN CORPUSCULAR HEMOGLOBIN 30.1 pg (25.0-35.0); MEAN CORPUSCULAR HGB CONC 34.6 g/dl (31.0-37.0); MEAN PLATELET VOLUME 9.2 fl (7.0-11.0); MONO # 1.1 (0.1-0.6); MONO % 8.5 % (1.0-6.0); RBC 2.82 10^6/uL (3.5-6.1); RED CELL DISTRIBUTION WIDTH 13.4 % (11.5-14.5); WHITE BLOOD COUNT 13.4 10^3/ul (4.5-11.0)
[2018-02-25 07:00] LABS: ALBUMIN 3.1 g/dL (3.0-4.8); ALT/SGPT 21 U/L (7-56); AST/SGOT 17 U/L (17-59); BLOOD UREA NITROGEN 13 mg/dL (7-21); CALCIUM 8.1 mg/dL (8.4-10.5); GFR AFRICAN-AMERICAN > 60; GFR NON-AFRICAN AMERICAN > 60
[2018-02-25] MEDS: Insulin Regular 1 UNITS/0.01 ML ML SC SCH ×3 (08:42→17:51)
[2018-02-25] MEDS: Insulin Lispro (humaLOG) MIX 75/25(10 ml) SC SCH ×2 (09:00→11:24)
[2018-02-25] MEDS: Vancomycin 1gm in NS 250ml 1 GM/250 ML BAG IVPB SCH ×2 (10:46→21:43)
[2018-02-25] MEDS: Cholecalciferol 400 Intl Units Tab PO SCH (11:46)
--- NOTE | 2018-02-25 12:43 | CP.PCM.PN ---
Subjective - Date & Time of Evaluation Date of Evaluation: 02/24/18 Time of Evaluation: 11:05 - Subjective Subjective: Left leg is feeling a little better, no fevers, had surgery yesterday. Objective - Vital Signs/Intake and Output Vital Signs (last 24 hours): Temp Pulse Resp BP Pulse Ox 98.7 F 58 L 16 147/80 98 02/24/18 14:15 02/24/18 15:41 02/24/18 14:15 02/24/18 15:42 02/24/18 14:15 Intake and Output: 02/24/18 02/25/18 18:59 06:59 Intake Total 75 480 Output Total 300 Balance 75 180 - Medications Medications: Current Medications Amlodipine Besylate (Norvasc) 10 mg PO DAILY [facility] Last Admin: 02/24/18 15:42 Dose: 10 mg Aspirin (Ecotrin) 81 mg PO DAILY [facility] Last Admin: 02/24/18 17:21 Dose: 81 mg Atorvastatin Calcium (Lipitor) 80 mg PO DIN [facility] Last Admin: 02/24/18 16:50 Dose: 80 mg Benzocaine/Menthol (Cepacol Sore Throat) 1 allie MT Q2H PRN PRN Reason: Sore Throat Last Admin: 02/24/18 15:37 Dose: 1 allie Dextrose (Dextrose 50% Inj) 0 ml IV STAT PRN; Protocol PRN Reason: Hypoglycemia Protocol Enoxaparin Sodium (Lovenox) 40 mg SC DAILY [facility] PRN Reason: Protocol Last Admin: 02/24/18 15:45 Dose: Not Given Dextrose (Dextrose 5% In Water 1000 Ml) 1,000 mls @ 0 mls/hr IV .Q0M PRN; Protocol; Per Protocol PRN Reason: Hypoglycemia Protocol Piperacillin Sod/Tazobactam Sod (Zosyn 3.375 In Ns 100ml) 100 mls @ 200 mls/hr IVPB Q6 [facility] PRN Reason: Protocol Stop: 03/02/18 00:01 Last Admin: 02/24/18 17:22 Dose: Not Given Vancomycin HCl (Vancomycin 1gm) 1 gm in 250 mls @ 167 mls/hr IVPB Q12 [facility] PRN Reason: Protocol Last Admin: 02/24/18 21:06 Dose: 167 mls/hr Insulin Detemir (Levemir) 8 unit SC [facility] Last Admin: 02/24/18 22:02 Dose: 8 units Insulin Human Regular (Humulin R) 0 units SC ACHS [facility] PRN Reason: Protocol Last Admin: 02/24/18 21:49 Dose: Not Given Lisinopril (Zestril) 20 mg PO DAILY [facility] Last Admin: 02/24/18 15:41 Dose: 20 mg Ondansetron HCl (Zofran Inj) 4 mg IVP ONCE PRN PRN Reason: Nausea/Vomiting Vitamin D (Vitamin D 400 Intl Units Tab) 600 intlu PO DAILY [facility] Last Admin: 02/24/18 17:21 Dose: 600 intlu - Labs Labs: 02/24/18 07:20 02/24/18 07:20 PT 13.7 SECONDS (9.4-12.5) H 02/22/18 15:30 INR 1.20 (0.93-1.08) H 02/22/18 15:30 APTT 28.4 Seconds (25.1-36.5) 02/22/18 15:30 - Constitutional Appears: Non-toxic, Chronically Ill - Head Exam Head Exam: NORMAL INSPECTION - ENT Exam ENT Exam: Mucous Membranes Moist - Neck Exam Neck Exam: absent: Lymphadenopathy, Meningismus - Respiratory Exam Respiratory Exam: Decreased Breath Sounds - Cardiovascular Exam Cardiovascular Exam: +S1, +S2 - GI/Abdominal Exam GI & Abdominal Exam: Soft. absent: Tenderness - Extremities Exam Additional comments: left leg with dressings in place Assessment and Plan - Assessment and Plan (Free Text) Plan: Assessment sepsis due to left foot skin and skin structure infection with 3rd and 4th metatarsal osteomyelitis, S/P tranmetatarsal amputation POD #1 history of left foot 5th toe osteomyelitis with skin and skin structure infection, growing MRSA in the soft tissue and MSSA in the bone S/P partial 5th ray amputation and debridement of tissue S/P treatment with 6 weeks of Zyvox DM peripheral neuropathy CAD HTN Plan continue Vancoymcin and Zosyn for now pending OR cultures and pathology
--- NOTE | 2018-02-25 14:35 | CP.PCM.PN ---
Subjective - Date & Time of Evaluation Date of Evaluation: 02/25/18 Time of Evaluation: 14:34 - Subjective Subjective: 62 y/o male seen at bedside this morning 1 day s/p left transmetatarsal amputation. Pt resting comfortably in bed in NAD. Denies any events overnight. Denies F/C/N/V/CP/SOB. States he did not have much pain since the surgery. Admits he has not tried to walk yet and wonders if he is allowed to. Objective - Vital Signs/Intake and Output Vital Signs (last 24 hours): Temp Pulse Resp BP Pulse Ox 99 F 68 20 136/72 96 02/25/18 06:00 02/25/18 06:00 02/25/18 06:00 02/25/18 10:47 02/25/18 06:00 Intake and Output: 02/25/18 02/25/18 06:59 18:59 Intake Total 1280 Output Total 300 Balance 980 - Medications Medications: Current Medications Amlodipine Besylate (Norvasc) 10 mg PO DAILY [facility] Last Admin: 02/25/18 10:47 Dose: 10 mg Aspirin (Ecotrin) 81 mg PO DAILY [facility] Last Admin: 02/25/18 11:56 Dose: 81 mg Atorvastatin Calcium (Lipitor) 80 mg PO DIN [facility] Last Admin: 02/24/18 16:50 Dose: 80 mg Benzocaine/Menthol (Cepacol Sore Throat) 1 allie MT Q2H PRN PRN Reason: Sore Throat Last Admin: 02/24/18 15:37 Dose: 1 allie Dextrose (Dextrose 50% Inj) 0 ml IV STAT PRN; Protocol PRN Reason: Hypoglycemia Protocol Enoxaparin Sodium (Lovenox) 40 mg SC DAILY [facility] PRN Reason: Protocol Last Admin: 02/24/18 15:45 Dose: Not Given Dextrose (Dextrose 5% In Water 1000 Ml) 1,000 mls @ 0 mls/hr IV .Q0M PRN; Protocol; Per Protocol PRN Reason: Hypoglycemia Protocol Piperacillin Sod/Tazobactam Sod (Zosyn 3.375 In Ns 100ml) 100 mls @ 200 mls/hr IVPB Q6 [facility] PRN Reason: Protocol Stop: 03/02/18 00:01 Last Admin: 02/25/18 11:58 Dose: 200 mls/hr Vancomycin HCl (Vancomycin 1gm) 1 gm in 250 mls @ 167 mls/hr IVPB Q12 [facility] PRN Reason: Protocol Last Admin: 02/25/18 10:46 Dose: 167 mls/hr Insulin Detemir (Levemir) 8 unit SC HS [facility] Last Admin: 02/24/18 22:02 Dose: 8 units Insulin Human Regular (Humulin R) 0 units SC ACHS [facility] PRN Reason: Protocol Last Admin: 02/25/18 11:57 Dose: Not Given Insulin Lispro Protam/Lispro Human (Humalog Mix 75/25) 4 units SC DAILY [facility] Last Admin: 02/25/18 11:24 Dose: Not Given Lisinopril (Zestril) 20 mg PO DAILY [facility] Last Admin: 02/25/18 10:47 Dose: 20 mg Ondansetron HCl (Zofran Inj) 4 mg IVP ONCE PRN PRN Reason: Nausea/Vomiting Vitamin D (Vitamin D 400 Intl Units Tab) 600 intlu PO DAILY [facility] Last Admin: 02/25/18 11:46 Dose: 600 intlu - Labs Labs: 02/25/18 05:30 02/25/18 05:30 PT 13.7 SECONDS (9.4-12.5) H 02/22/18 15:30 INR 1.20 (0.93-1.08) H 02/22/18 15:30 APTT 28.4 Seconds (25.1-36.5) 02/22/18 15:30 - Constitutional Appears: Well, Non-toxic, No Acute Distress - Extremities Exam Additional comments: LLE focused exam: Vasc: DP pulse 1/4, PT pulse non palpable. Temperature gradient warm to warm. Capillary fill time good to TMA flap. Neuro: Protective sensation grossly intact Derm: Transmetatarsal amputation surgical site noted with sutures intact, skin edges well coapted with no dehiscence noted at this time. Mild active sanguinous drainage noted from surgical site with application of pressure. No malodor, no tunneling or undermining, no fluctuance or bogginess, no purulence noted Ortho: Mild tenderness to palpation of surgical TMA site - Neurological Exam Neurological Exam: Alert, Awake, Oriented x3 - Psychiatric Exam Psychiatric exam: Normal Affect, Normal Mood Assessment and Plan - Assessment and Plan (Free Text) Assessment: 62 y/o male 1 day s/p left transmetarsal amputation secondary to diabetic foot ulcer with osteomyelitis Plan: Pt seen and evaluated at bedside Discussed with attending Dr. Jauregui Wound site cleaned with saline and dressed with Adaptic ABD DSD Posterior splint reapplied to LLE Pt advised to be NWB at this time with use of crutches/other assistive device Will continue to follow while in house Continue IV abx per ID
[2018-02-25] MEDS: Insulin Detemir 100 units/ml Vial (Levemir) SC SCH (21:43)
[2018-02-26] MEDS: Piperacillin/Tazobact 3.375 gm 100 ML IVPB SCH ×5 (00:50→23:56)
[2018-02-26] MEDS: Insulin Regular 1 UNITS/0.01 ML ML SC SCH ×5 (03:18→21:29)
[2018-02-26 06:52] LABS: BASO # 0.03 K/mm3 (0.0-2.0); BASO % 0.3 % (0.0-3.0); EOS # 0.2 (0.0-0.7); EOS % 2.2 % (1.5-5.0); GRAN # 6.89 (1.4-6.5); GRAN % 67.5 % (50.0-68.0); HEMOGLOBIN 7.7 g/dL (14.0-18.0); LYMPH # 2.3 (1.2-3.4); LYMPH % 22.6 % (22.0-35.0); MEAN CELL VOLUME 88.2 fl (80.0-105.0); MEAN CORPUSCULAR HEMOGLOBIN 30.3 pg (25.0-35.0); MEAN CORPUSCULAR HGB CONC 34.4 g/dl (31.0-37.0); MEAN PLATELET VOLUME 8.8 fl (7.0-11.0); MONO # 0.8 (0.1-0.6); MONO % 7.4 % (1.0-6.0); RBC 2.54 10^6/uL (3.5-6.1); RED CELL DISTRIBUTION WIDTH 13.5 % (11.5-14.5); WHITE BLOOD COUNT 10.2 10^3/ul (4.5-11.0)
[2018-02-26 07:25] LABS: ALB/GLOB RATIO 0.9 (1.1-1.8); ALBUMIN 3.1 g/dL (3.0-4.8); ALT/SGPT 31 U/L (7-56); AST/SGOT 30 U/L (17-59); BLOOD UREA NITROGEN 11 mg/dL (7-21); CALCIUM 8.2 mg/dL (8.4-10.5); GFR AFRICAN-AMERICAN > 60; GFR NON-AFRICAN AMERICAN > 60
[2018-02-26] MEDS: Vancomycin 1gm in NS 250ml 1 GM/250 ML BAG IVPB SCH ×2 (09:50→21:38)
[2018-02-26] MEDS: Cholecalciferol 400 Intl Units Tab PO SCH (10:06)
--- NOTE | 2018-02-26 12:54 | CP.PCM.PN ---
Subjective - Date & Time of Evaluation Date of Evaluation: 02/26/18 Time of Evaluation: 12:10 - Subjective Subjective: No increase in foot/leg pain, no fevers. Objective - Vital Signs/Intake and Output Vital Signs (last 24 hours): Temp Pulse Resp BP Pulse Ox 99.3 F 67 20 132/71 95 02/25/18 22:00 02/25/18 22:00 02/25/18 22:00 02/25/18 22:00 02/25/18 22:00 - Medications Medications: Current Medications Amlodipine Besylate (Norvasc) 10 mg PO DAILY [facility] Last Admin: 02/25/18 10:47 Dose: 10 mg Aspirin (Ecotrin) 81 mg PO DAILY [facility] Last Admin: 02/25/18 11:56 Dose: 81 mg Atorvastatin Calcium (Lipitor) 80 mg PO DIN [facility] Last Admin: 02/24/18 16:50 Dose: 80 mg Benzocaine/Menthol (Cepacol Sore Throat) 1 allie MT Q2H PRN PRN Reason: Sore Throat Last Admin: 02/24/18 15:37 Dose: 1 allie Dextrose (Dextrose 50% Inj) 0 ml IV STAT PRN; Protocol PRN Reason: Hypoglycemia Protocol Enoxaparin Sodium (Lovenox) 40 mg SC DAILY [facility] PRN Reason: Protocol Last Admin: 02/24/18 15:45 Dose: Not Given Dextrose (Dextrose 5% In Water 1000 Ml) 1,000 mls @ 0 mls/hr IV .Q0M PRN; Protocol; Per Protocol PRN Reason: Hypoglycemia Protocol Piperacillin Sod/Tazobactam Sod (Zosyn 3.375 In Ns 100ml) 100 mls @ 200 mls/hr IVPB Q6 [facility] PRN Reason: Protocol Stop: 03/02/18 00:01 Last Admin: 02/25/18 17:50 Dose: 200 mls/hr Vancomycin HCl (Vancomycin 1gm) 1 gm in 250 mls @ 167 mls/hr IVPB Q12 [facility] PRN Reason: Protocol Last Admin: 02/25/18 21:43 Dose: 167 mls/hr Insulin Detemir (Levemir) 10 unit SC HS [facility] Last Admin: 02/25/18 21:43 Dose: 10 units Insulin Human Regular (Humulin R) 0 units SC ACHS [facility] PRN Reason: Protocol Last Admin: 02/25/18 17:51 Dose: 1 units Insulin Lispro Protam/Lispro Human (Humalog Mix 75/25) 4 units SC DAILY [facility] 234 [facility]S [facility] Last Admin: 02/25/18 11:24 Dose: Not Given Lisinopril (Zestril) 20 mg PO DAILY [facility] Last Admin: 02/25/18 10:47 Dose: 20 mg Ondansetron HCl (Zofran Inj) 4 mg IVP ONCE PRN PRN Reason: Nausea/Vomiting Vitamin D (Vitamin D 400 Intl Units Tab) 600 intlu PO DAILY [facility] Last Admin: 02/25/18 11:46 Dose: 600 intlu - Labs Labs: 02/25/18 05:30 02/25/18 05:30 PT 13.7 SECONDS (9.4-12.5) H 02/22/18 15:30 INR 1.20 (0.93-1.08) H 02/22/18 15:30 APTT 28.4 Seconds (25.1-36.5) 02/22/18 15:30 - Constitutional Appears: Non-toxic, Chronically Ill - Head Exam Head Exam: NORMAL INSPECTION - Respiratory Exam Respiratory Exam: Decreased Breath Sounds - Cardiovascular Exam Cardiovascular Exam: +S1, +S2 - GI/Abdominal Exam GI & Abdominal Exam: Soft. absent: Tenderness - Extremities Exam Additional comments: left leg with dressings and bandages in place Assessment and Plan - Assessment and Plan (Free Text) Plan: Assessment sepsis due to left foot skin and skin structure infection with 3rd and 4th metatarsal osteomyelitis, S/P tranmetatarsal amputation POD #2 history of left foot 5th toe osteomyelitis with skin and skin structure infection, growing MRSA in the soft tissue and MSSA in the bone S/P partial 5th ray amputation and debridement of tissue S/P treatment with 6 weeks of Zyvox DM peripheral neuropathy CAD HTN Plan continue Vancoymcin and Zosyn for now pending OR cultures and pathology
--- NOTE | 2018-02-26 14:31 | CP.PCM.PN ---
<Lencho Erickson - Last Filed: 02/26/18 16:19> Subjective - Date & Time of Evaluation Date of Evaluation: 02/26/18 Time of Evaluation: 14:28 - Subjective Subjective: Lencho Erickson DO - PGY1 IM [employer] Worker - Medicine Progress Note Patient seen and evaluated at bedside this AM POD#2; No acute events overnight. Nursing reported no concerns this AM. Patient having BMs; tolerating well s/p transmetatarsal amputation on 02/25 Denies any F, Chills, CP, Cough, Sob, N/V/D/C. Objective - Vital Signs/Intake and Output Vital Signs (last 24 hours): Temp Pulse Resp BP Pulse Ox 99.6 F 66 70 H 155/77 H 98 02/26/18 07:00 02/26/18 09:52 02/26/18 07:00 02/26/18 09:52 02/26/18 07:00 Intake and Output: 02/26/18 02/26/18 06:59 18:59 Intake Total 360 680 Output Total 700 900 Balance -340 -220 - Medications Medications: Current Medications Amlodipine Besylate (Norvasc) 10 mg PO DAILY [facility] Last Admin: 02/26/18 09:51 Dose: 10 mg Aspirin (Ecotrin) 81 mg PO DAILY [facility] Last Admin: 02/26/18 11:07 Dose: 81 mg Atorvastatin Calcium (Lipitor) 80 mg PO DIN [facility] Last Admin: 02/24/18 16:50 Dose: 80 mg Benzocaine/Menthol (Cepacol Sore Throat) 1 allie MT Q2H PRN PRN Reason: Sore Throat Last Admin: 02/24/18 15:37 Dose: 1 allie Dextrose (Dextrose 50% Inj) 0 ml IV STAT PRN; Protocol PRN Reason: Hypoglycemia Protocol Enoxaparin Sodium (Lovenox) 40 mg SC DAILY [facility] PRN Reason: Protocol Last Admin: 02/24/18 15:45 Dose: Not Given Dextrose (Dextrose 5% In Water 1000 Ml) 1,000 mls @ 0 mls/hr IV .Q0M PRN; Protocol; Per Protocol PRN Reason: Hypoglycemia Protocol Piperacillin Sod/Tazobactam Sod (Zosyn 3.375 In Ns 100ml) 100 mls @ 200 mls/hr IVPB Q6 [facility] PRN Reason: Protocol Stop: 03/02/18 00:01 Last Admin: 02/26/18 11:07 Dose: 200 mls/hr Vancomycin HCl (Vancomycin 1gm) 1 gm in 250 mls @ 167 mls/hr IVPB Q12 [facility] PRN Reason: Protocol Last Admin: 02/26/18 09:50 Dose: 167 mls/hr Insulin Detemir (Levemir) 10 unit SC HS [facility] Last Admin: 02/25/18 21:43 Dose: 10 units Insulin Human Regular (Humulin R) 0 units SC ACHS [facility] PRN Reason: Protocol Last Admin: 02/26/18 11:32 Dose: 1 units Lisinopril (Zestril) 20 mg PO DAILY [facility] Last Admin: 02/26/18 09:52 Dose: 20 mg Ondansetron HCl (Zofran Inj) 4 mg IVP ONCE PRN PRN Reason: Nausea/Vomiting Vitamin D (Vitamin D 400 Intl Units Tab) 600 intlu PO DAILY [facility] Last Admin: 02/26/18 10:06 Dose: 600 intlu - Labs Labs: 02/26/18 06:40 02/26/18 06:40 PT 13.7 SECONDS (9.4-12.5) H 02/22/18 15:30 INR 1.20 (0.93-1.08) H 02/22/18 15:30 APTT 28.4 Seconds (25.1-36.5) 02/22/18 15:30 - Constitutional Appears: Well, Non-toxic, No Acute Distress - Head Exam Head Exam: ATRAUMATIC, NORMOCEPHALIC - Eye Exam Eye Exam: EOMI, PERRL. absent: Scleral icterus - ENT Exam ENT Exam: Mucous Membranes Moist, Normal Exam - Respiratory Exam Respiratory Exam: Clear to Ausculation Bilateral, NORMAL BREATHING PATTERN. absent: Rhonchi, Wheezes - Cardiovascular Exam Cardiovascular Exam: REGULAR RHYTHM, RRR, +S1, +S2. absent: Murmur - GI/Abdominal Exam GI & Abdominal Exam: Soft, Normal Bowel Sounds. absent: Tenderness - Extremities Exam Additional comments: Poor pedal pulse in R foot; howerver RLE warm; dry. LLE is bandaged and dressed by wound care. Dressing is CDI. - Neurological Exam Neurological Exam: Alert, Awake, CN II-XII Intact, Oriented x3 - Psychiatric Exam Psychiatric exam: Normal Affect, Normal Mood - Skin Skin Exam: Dry, Intact, Warm Assessment and Plan - Assessment and Plan (Free Text) Assessment: 62M w/ PMH of DM2, PVD, CAD, HTN, Chronic neuropathy, Osteomyelitis s/p Left 5th metatarsal amputation 12/01, and s/p debridement + L anterior tibial angioplasty 12/31 admitted for chronic L anterior foot ulceration worsening x 1 week. Pt. is POD#2 S/P Transmetatarsal resection of the L foot. Plan: Osteomyelitis L 3rd + 4th digits s/p Transmetatarsal amputation POD#2 on IV ABX Patient is s/p L 5th metatarsal amputation (11/2017) and debridement + anterior tibial angioplasty (12/2017) 2/2 poor vascularization Pt. Afebrile; No leukocytosis; Cont Empiric Vanc/Zosyn Day 3 Wound culture + for MSSA; Operative Cultures pending Operative Pathology pending Pod following ID following IR following, recommendations appreciated Wound care following PT Eval pending; Pt is currently to be NWB on LLE and ambulate w/ crutches Normocytic Anemia - stable Most likely 2/2 to Anemia of Chronic disease; asymptomatic however Hb still downtrending; continue to follow. Hb on admission low; MCV normal; Ferritin elevated; Retic Count normal Hx Type 2 Diabetes Fasting glucose 112 this AM; fasting well controlled. Continue Levemir 10 DC Humalog Continue on ISS Regular A1C on 02/21 was 8.5, improved from 9.4 on 01/07 Hx Hypertension Reviewed at home blood pressure medications Continued home Lisinopril 20 QD and amlodipine 10 QD Hx PVD s/p angioplasty 12/2017 Interventional radiology following ASA81 Atorvastatin 80 IR Following CAD As above Prophylaxis DVT/ GI - Lovenox/ Protonix Dispo: Placement pending eval once medically stable Patient seen, examined, and discussed at length w/ attending physician Dr. Aureliano Erickson DO - PGY1 IM [employer] [facility] Worker - Pager [phone] <Arslan Bedoya - Last Filed: 02/27/18 14:53> Objective - Vital Signs/Intake and Output Vital Signs (last 24 hours): Temp Pulse Resp BP Pulse Ox 98 F 62 18 122/74 96 02/27/18 07:59 02/27/18 07:59 02/27/18 07:59 02/27/18 10:59 02/27/18 07:59 Intake and Output: 02/27/18 02/27/18 06:59 18:59 Intake Total 620 660 Output Total 525 500 Balance 95 160 - Medications Medications: Current Medications Acetaminophen (Tylenol 325mg Tab) 650 mg PO Q6H PRN PRN Reason: Other Last Admin: 02/26/18 21:38 Dose: 650 mg Amlodipine Besylate (Norvasc) 10 mg PO DAILY [facility] Last Admin: 02/27/18 10:59 Dose: 10 mg Aspirin (Ecotrin) 81 mg PO DAILY [facility] Last Admin: 02/26/18 11:07 Dose: 81 mg Atorvastatin Calcium (Lipitor) 80 mg PO DIN [facility] Last Admin: 02/26/18 17:10 Dose: 80 mg Benzocaine/Menthol (Cepacol Sore Throat) 1 allie MT Q2H PRN PRN Reason: Sore Throat Last Admin: 02/24/18 15:37 Dose: 1 allie Dextrose (Dextrose 50% Inj) 0 ml IV STAT PRN; Protocol PRN Reason: Hypoglycemia Protocol Docusate Sodium (Colace) 100 mg PO BID [facility] Stop: 02/28/18 18:00 Enoxaparin Sodium (Lovenox) 40 mg SC DAILY [facility] PRN Reason: Protocol Last Admin: 02/24/18 15:45 Dose: Not Given Dextrose (Dextrose 5% In Water 1000 Ml) 1,000 mls @ 0 mls/hr IV .Q0M PRN; Protocol; Per Protocol PRN Reason: Hypoglycemia Protocol Piperacillin Sod/Tazobactam Sod (Zosyn 3.375 In Ns 100ml) 100 mls @ 200 mls/hr IVPB Q6 [facility] PRN Reason: Protocol Stop: 03/02/18 00:01 Last Admin: 02/27/18 12:12 Dose: 200 mls/hr Vancomycin HCl (Vancomycin 1gm) 1 gm in 250 mls @ 167 mls/hr IVPB Q12 [facility] PRN Reason: Protocol Last Admin: 02/27/18 10:59 Dose: 167 mls/hr Insulin Detemir (Levemir) 10 unit SC HS [facility] Last Admin: 02/26/18 21:38 Dose: 10 units Insulin Human Regular (Humulin R) 0 units SC ACHS [facility] PRN Reason: Protocol Last Admin: 02/27/18 12:12 Dose: 1 units Lisinopril (Zestril) 20 mg PO DAILY [facility] Last Admin: 02/27/18 10:59 Dose: 20 mg Ondansetron HCl (Zofran Inj) 4 mg IVP ONCE PRN PRN Reason: Nausea/Vomiting Vitamin D (Vitamin D 400 Intl Units Tab) 600 intlu PO DAILY [facility] Last Admin: 02/26/18 10:06 Dose: 600 intlu - Labs Labs: 02/27/18 10:30 02/27/18 10:30 PT 13.7 SECONDS (9.4-12.5) H 02/22/18 15:30 INR 1.20 (0.93-1.08) H 02/22/18 15:30 APTT 28.4 Seconds (25.1-36.5) 02/22/18 15:30 Attending/Attestation - Attestation I have personally seen and examined this patient.: Yes I have fully participated in the care of the patient.: Yes I have reviewed all pertinent clinical information, including history, physical exam and plan: Yes Notes (Text): 02/27/18 14:51 Medical record note made by the resident after discussion with my direction and input after the patient was personally seen and examined by me. I have reviewed the chart and agree that the record accurately reflects by personal performance of the history, physical exam, data review, and medical decision-making, in the course for the patient. I have also personally directed the plan of care. 62 years old male with PMH DM,HTN,PVD,SP left anterior tibial A angioplasty , SP 5th ray resection with infected ulcerations to left foot followed by wound debridement. 6 weeks back , SP treatment with Zyvox for 6 weeks was admitted with worsening left foot wound, X rays and MRI finding were suggestive of ostemylitis of 4th meta tarsal and proximal phalanx , on IV Vancomycin and Zosyn.Wound cultures are growing MSSA.Patient underwent trans meta tarsal amputation by Podiatry.We will follow up pathology results. Normocytic normochromic anemia 2nd to anemia of chronic disease, will transfuse if hemoglobin is less than 7.5, will continue monitoring. DM. on levemir and sliding scale Management plan was discussed in detail with patient. Education was provided.
[2018-02-26] MEDS: Insulin Detemir 100 units/ml Vial (Levemir) SC SCH (21:38)
[2018-02-27] MEDS: Piperacillin/Tazobact 3.375 gm 100 ML IVPB SCH ×3 (05:39→17:30)
[2018-02-27] MEDS: Insulin Regular 1 UNITS/0.01 ML ML SC SCH ×4 (08:27→22:54)
--- NOTE | 2018-02-27 10:33 | CP.PCM.PN ---
Subjective - Date & Time of Evaluation Date of Evaluation: 02/27/18 Time of Evaluation: 10:29 - Subjective Subjective: Podiatry Progress Note- Dr. Jauregui 62 y/o male seen at bedside this morning 3 day s/p left transmetatarsal amputation. Pt resting comfortably in bed in NAD, AAOX3. Denies any events overnight. Patient reports that he has no pain to the left lower extremity. Denies of calf pain or tenderness. Reports sleeping well. Denies F/C/N/V/CP/SOB. Objective - Vital Signs/Intake and Output Vital Signs (last 24 hours): Temp Pulse Resp BP Pulse Ox 98 F 62 18 142/71 96 02/27/18 07:59 02/27/18 07:59 02/27/18 07:59 02/27/18 07:59 02/27/18 07:59 Intake and Output: 02/27/18 02/27/18 06:59 18:59 Intake Total 620 Output Total 525 Balance 95 - Medications Medications: Current Medications Acetaminophen (Tylenol 325mg Tab) 650 mg PO Q6H PRN PRN Reason: Other Last Admin: 02/26/18 21:38 Dose: 650 mg Amlodipine Besylate (Norvasc) 10 mg PO DAILY [facility] Last Admin: 02/26/18 09:51 Dose: 10 mg Aspirin (Ecotrin) 81 mg PO DAILY [facility] Last Admin: 02/26/18 11:07 Dose: 81 mg Atorvastatin Calcium (Lipitor) 80 mg PO DIN [facility] Last Admin: 02/26/18 17:10 Dose: 80 mg Benzocaine/Menthol (Cepacol Sore Throat) 1 allie MT Q2H PRN PRN Reason: Sore Throat Last Admin: 02/24/18 15:37 Dose: 1 allie Dextrose (Dextrose 50% Inj) 0 ml IV STAT PRN; Protocol PRN Reason: Hypoglycemia Protocol Enoxaparin Sodium (Lovenox) 40 mg SC DAILY [facility] PRN Reason: Protocol Last Admin: 02/24/18 15:45 Dose: Not Given Dextrose (Dextrose 5% In Water 1000 Ml) 1,000 mls @ 0 mls/hr IV .Q0M PRN; Protocol; Per Protocol PRN Reason: Hypoglycemia Protocol Piperacillin Sod/Tazobactam Sod (Zosyn 3.375 In Ns 100ml) 100 mls @ 200 mls/hr IVPB Q6 [facility] PRN Reason: Protocol Stop: 03/02/18 00:01 Last Admin: 02/27/18 05:39 Dose: 200 mls/hr Vancomycin HCl (Vancomycin 1gm) 1 gm in 250 mls @ 167 mls/hr IVPB Q12 [facility] PRN Reason: Protocol Last Admin: 02/26/18 21:38 Dose: 167 mls/hr Insulin Detemir (Levemir) 10 unit SC HS [facility] Last Admin: 02/26/18 21:38 Dose: 10 units Insulin Human Regular (Humulin R) 0 units SC ACHS [facility] PRN Reason: Protocol Last Admin: 02/27/18 08:27 Dose: 1 units Lisinopril (Zestril) 20 mg PO DAILY [facility] Last Admin: 02/26/18 09:52 Dose: 20 mg Ondansetron HCl (Zofran Inj) 4 mg IVP ONCE PRN PRN Reason: Nausea/Vomiting Vitamin D (Vitamin D 400 Intl Units Tab) 600 intlu PO DAILY [facility] Last Admin: 02/26/18 10:06 Dose: 600 intlu - Labs Labs: 02/26/18 06:40 02/26/18 06:40 PT 13.7 SECONDS (9.4-12.5) H 02/22/18 15:30 INR 1.20 (0.93-1.08) H 02/22/18 15:30 APTT 28.4 Seconds (25.1-36.5) 02/22/18 15:30 - Constitutional Appears: Well, Non-toxic, No Acute Distress - Extremities Exam Extremities Exam: absent: Calf Tenderness Additional comments: LLE focused exam: Vasc: DP pulse 1/4, PT pulse non palpable. Temperature gradient warm to warm. Capillary fill time good to TMA flap. Mild edema noted to the surgical site Neuro: Protective sensation grossly intact Derm: Transmetatarsal amputation surgical site noted with sutures intact, skin edges well coapted with no dehiscence noted at this time. Mild active sanguinous drainage noted from surgical site with application of pressure. No malodor, no tunneling or undermining, no fluctuance or bogginess, no purulence noted Ortho: Mild tenderness to palpation of surgical TMA site - Neurological Exam Neurological Exam: Alert, Awake, Oriented x3 - Psychiatric Exam Psychiatric exam: Normal Affect, Normal Mood Assessment and Plan - Assessment and Plan (Free Text) Assessment: 62 y/o male 3 day s/p left transmetarsal amputation secondary to diabetic foot ulcer with osteomyelitis- surgical site stable Plan: Pt seen and evaluated at bedside Discussed with attending Dr. Jauregui WBC=10.2, afebrile today Will continue to closely monitor Wound site cleaned with saline and dressed with Adaptic ABD DSD Surgical site not clinically infected Posterior splint reapplied to LLE Pt advised to be NWB at this time with use of crutches/other assistive device Weight bearing status: NWB to the left lower extremity with crutches/other assistive device Physical therapy - please evaluate and treat, thank you Will continue to follow while in house Continue IV abx per ID
[2018-02-27 10:38] LABS: BASO # 0.02 K/mm3 (0.0-2.0); BASO % 0.2 % (0.0-3.0); EOS # 0.2 (0.0-0.7); GRAN # 7.15 (1.4-6.5); GRAN % 72.2 % (50.0-68.0); HEMOGLOBIN 8.6 g/dL (14.0-18.0); LYMPH % 20.5 % (22.0-35.0); MEAN CELL VOLUME 88.7 fl (80.0-105.0); MEAN CORPUSCULAR HEMOGLOBIN 30.3 pg (25.0-35.0); MEAN CORPUSCULAR HGB CONC 34.1 g/dl (31.0-37.0); MEAN PLATELET VOLUME 8.4 fl (7.0-11.0); MONO # 0.5 (0.1-0.6); MONO % 5.1 % (1.0-6.0); RBC 2.84 10^6/uL (3.5-6.1); RED CELL DISTRIBUTION WIDTH 13.6 % (11.5-14.5); WHITE BLOOD COUNT 9.9 10^3/ul (4.5-11.0)
[2018-02-27] MEDS: Vancomycin 1gm in NS 250ml 1 GM/250 ML BAG IVPB SCH ×2 (10:59→21:38)
[2018-02-27 11:05] LABS: ALBUMIN 3.7 g/dL (3.0-4.8); ALT/SGPT 17 U/L (7-56); AST/SGOT 30 U/L (17-59); BLOOD UREA NITROGEN 12 mg/dL (7-21); CALCIUM 8.8 mg/dL (8.4-10.5); GFR AFRICAN-AMERICAN > 60; GFR NON-AFRICAN AMERICAN > 60
--- NOTE | 2018-02-27 12:56 | CP.PCM.PN ---
<Lencho Erickson - Last Filed: 02/28/18 03:42> Subjective - Date & Time of Evaluation Date of Evaluation: 02/27/18 Time of Evaluation: 12:56 - Subjective Subjective: Lencho Erickson DO - PGY1 IM Resident - Medicine Progress Note Pt. was seen this AM at bedside; currently POD#3 s/p transmetatarsal resection. Currently voicing no complaints at this time; tmax 100.1 reported overnight however no subjective fevers or chills. Clinically stable at this time; some what constipated at time of evaluation. Ambulated w/ use of walker w/ PT yesterday. Pt. started colace 100 BID. Denies any CP, Cough, SOB, abd pain, N/V /D, urinary complaints. remainder 12 point ROS otherwise unremarkable. Objective - Vital Signs/Intake and Output Vital Signs (last 24 hours): Temp Pulse Resp BP Pulse Ox 98 F 62 18 122/74 96 02/27/18 07:59 02/27/18 07:59 02/27/18 07:59 02/27/18 10:59 02/27/18 07:59 Intake and Output: 02/27/18 02/27/18 06:59 18:59 Intake Total 620 Output Total 525 Balance 95 - Medications Medications: Current Medications Acetaminophen (Tylenol 325mg Tab) 650 mg PO Q6H PRN PRN Reason: Other Last Admin: 02/26/18 21:38 Dose: 650 mg Amlodipine Besylate (Norvasc) 10 mg PO DAILY [facility] Last Admin: 02/27/18 10:59 Dose: 10 mg Aspirin (Ecotrin) 81 mg PO DAILY [facility] Last Admin: 02/26/18 11:07 Dose: 81 mg Atorvastatin Calcium (Lipitor) 80 mg PO DIN [facility] Last Admin: 02/26/18 17:10 Dose: 80 mg Benzocaine/Menthol (Cepacol Sore Throat) 1 allie MT Q2H PRN PRN Reason: Sore Throat Last Admin: 02/24/18 15:37 Dose: 1 allie Dextrose (Dextrose 50% Inj) 0 ml IV STAT PRN; Protocol PRN Reason: Hypoglycemia Protocol Enoxaparin Sodium (Lovenox) 40 mg SC DAILY [facility] PRN Reason: Protocol Last Admin: 02/24/18 15:45 Dose: Not Given Dextrose (Dextrose 5% In Water 1000 Ml) 1,000 mls @ 0 mls/hr IV .Q0M PRN; Protocol; Per Protocol PRN Reason: Hypoglycemia Protocol Piperacillin Sod/Tazobactam Sod (Zosyn 3.375 In Ns 100ml) 100 mls @ 200 mls/hr IVPB Q6 [facility] PRN Reason: Protocol Stop: 03/02/18 00:01 Last Admin: 02/27/18 12:12 Dose: 200 mls/hr Vancomycin HCl (Vancomycin 1gm) 1 gm in 250 mls @ 167 mls/hr IVPB Q12 [facility] PRN Reason: Protocol Last Admin: 02/27/18 10:59 Dose: 167 mls/hr Insulin Detemir (Levemir) 10 unit SC HS [facility] Last Admin: 02/26/18 21:38 Dose: 10 units Insulin Human Regular (Humulin R) 0 units SC ACHS [facility] PRN Reason: Protocol Last Admin: 02/27/18 12:12 Dose: 1 units Lisinopril (Zestril) 20 mg PO DAILY [facility] Last Admin: 02/27/18 10:59 Dose: 20 mg Ondansetron HCl (Zofran Inj) 4 mg IVP ONCE PRN PRN Reason: Nausea/Vomiting Vitamin D (Vitamin D 400 Intl Units Tab) 600 intlu PO DAILY [facility] Last Admin: 02/26/18 10:06 Dose: 600 intlu - Labs Labs: 02/27/18 10:30 02/27/18 10:30 PT 13.7 SECONDS (9.4-12.5) H 02/22/18 15:30 INR 1.20 (0.93-1.08) H 02/22/18 15:30 APTT 28.4 Seconds (25.1-36.5) 02/22/18 15:30 Physical Exam - Constitutional Appears: Well, Non-toxic, No Acute Distress - Head Exam Head Exam: ATRAUMATIC, NORMOCEPHALIC - Eye Exam Eye Exam: EOMI, PERRL. absent: Scleral icterus - ENT Exam ENT Exam: Mucous Membranes Moist, Normal Exam - Respiratory Exam Respiratory Exam: Clear to Ausculation Bilateral, NORMAL BREATHING PATTERN. absent: Rhonchi, Wheezes - Cardiovascular Exam Cardiovascular Exam: REGULAR RHYTHM, RRR, +S1, +S2. absent: Murmur - GI/Abdominal Exam GI & Abdominal Exam: Soft, Normal Bowel Sounds. absent: Tenderness - Extremities Exam Additional comments: LLE still bandaged and dressed; dressings are CDI, no tenderness. R foot poor pedal pulses - Neurological Exam Neurological Exam: Alert, Awake, CN II-XII Intact, Oriented x3 - Psychiatric Exam Psychiatric exam: Normal Affect, Normal Mood - Skin Skin Exam: Dry, Intact, Warm Assessment and Plan - Assessment and Plan (Free Text) Assessment: 62M w/ PMH of DM2, PVD, CAD, HTN, Chronic neuropathy, Osteomyelitis s/p Left 5th metatarsal amputation 12/01, and s/p debridement + L anterior tibial angioplasty 12/31 admitted for chronic L anterior foot ulceration worsening x 1 week. Pt. is POD#3 S/P Transmetatarsal resection of the L foot. Plan: Osteomyelitis L 3rd + 4th digits s/p Transmetatarsal amputation POD#2 on IV ABX Patient is s/p L 5th metatarsal amputation (11/2017) and debridement + anterior tibial angioplasty (12/2017) 2/2 poor vascularization Pt. Afebrile; No leukocytosis; Cont Empiric Vanc/Zosyn Day 4 Wound culture + for MSSA; Operative Cultures pending Operative Pathology pending Pod following ID following IR following, recommendations appreciated Wound care following PT Eval completed - Home W/ Services Normocytic Anemia - stable Most likely 2/2 to Anemia of Chronic disease; CBC showing rise in Hb this AM. Pt. shows no s/s of hemodynamic instability; VSS Hb on admission low; MCV normal; Ferritin elevated; Retic Count normal Hx Type 2 Diabetes Glucose POC range: 108-219 in last 24 horus Continue Levemir 10 Continue on ISS Regular A1C on 02/21 was 8.5, improved from 9.4 on 01/07 Hx Hypertension Reviewed at home blood pressure medications Continued home Lisinopril 20 QD and amlodipine 10 QD Hx PVD s/p angioplasty 12/2017 Interventional radiology following ASA81 Atorvastatin 80 IR Following CAD As above Prophylaxis DVT/ GI - Lovenox/ Protonix Dispo: Pt. to be DC'd to home w/ services per PT once medically stable. Patient seen, examined, and discussed at length w/ attending physician Dr. Aureliano Erickson DO - PGY1 IM Finance Lead - Pager [phone] <Arslan Bedoya - Last Filed: 02/28/18 17:24> Objective - Vital Signs/Intake and Output Vital Signs (last 24 hours): Temp Pulse Resp BP Pulse Ox 98.8 F 52 L 20 158/83 H 97 02/28/18 14:00 02/28/18 14:00 02/28/18 14:00 02/28/18 14:00 02/28/18 14:00 - Medications Medications: Current Medications Acetaminophen (Tylenol 325mg Tab) 650 mg PO Q6H PRN PRN Reason: Other Last Admin: 02/26/18 21:38 Dose: 650 mg Amlodipine Besylate (Norvasc) 10 mg PO DAILY [facility] Last Admin: 02/28/18 09:20 Dose: 10 mg Aspirin (Ecotrin) 81 mg PO DAILY [facility] Last Admin: 02/27/18 17:29 Dose: 81 mg Atorvastatin Calcium (Lipitor) 80 mg PO DIN [facility] Last Admin: 02/27/18 17:30 Dose: 80 mg Benzocaine/Menthol (Cepacol Sore Throat) 1 allie MT Q2H PRN PRN Reason: Sore Throat Last Admin: 02/24/18 15:37 Dose: 1 allie Dextrose (Dextrose 50% Inj) 0 ml IV STAT PRN; Protocol PRN Reason: Hypoglycemia Protocol Docusate Sodium (Colace) 100 mg PO BID [facility] Stop: 02/28/18 18:00 Last Admin: 02/28/18 09:20 Dose: 100 mg Enoxaparin Sodium (Lovenox) 40 mg SC DAILY [facility] PRN Reason: Protocol Last Admin: 02/24/18 15:45 Dose: Not Given Dextrose (Dextrose 5% In Water 1000 Ml) 1,000 mls @ 0 mls/hr IV .Q0M PRN; Protocol; Per Protocol PRN Reason: Hypoglycemia Protocol Cefazolin Sodium 2 gm/ Sodium (Chloride) 100 mls @ 200 mls/hr IVPB Q8 [facility] PRN Reason: Protocol Last Admin: 02/28/18 14:58 Dose: 200 mls/hr Insulin Detemir (Levemir) 10 unit SC HS [facility] Last Admin: 02/27/18 22:53 Dose: 10 units Insulin Human Regular (Humulin R) 0 units SC ACHS [facility] PRN Reason: Protocol Last Admin: 02/28/18 11:36 Dose: Not Given Lisinopril (Zestril) 20 mg PO DAILY [facility] Last Admin: 02/28/18 09:20 Dose: 20 mg Ondansetron HCl (Zofran Inj) 4 mg IVP ONCE PRN PRN Reason: Nausea/Vomiting Vitamin D (Vitamin D 400 Intl Units Tab) 600 intlu PO DAILY [facility] Last Admin: 02/27/18 17:29 Dose: 600 intlu - Labs Labs: 02/28/18 09:30 02/28/18 09:30 PT 13.7 SECONDS (9.4-12.5) H 02/22/18 15:30 INR 1.20 (0.93-1.08) H 02/22/18 15:30 APTT 28.4 Seconds (25.1-36.5) 02/22/18 15:30 Attending/Attestation - Attestation I have personally seen and examined this patient.: Yes I have fully participated in the care of the patient.: Yes I have reviewed all pertinent clinical information, including history, physical exam and plan: Yes Notes (Text): 02/28/18 17:24 Medical record note made by the resident after discussion with my direction and input after the patient was personally seen and examined by me. I have reviewed the chart and agree that the record accurately reflects by personal performance of the history, physical exam, data review, and medical decision-making, in the course for the patient. I have also personally directed the plan of care. 62 years old male with PMH DM,HTN,PVD,SP left anterior tibial A angioplasty , SP 5th ray resection with infected ulcerations to left foot followed by wound debridement. 6 weeks back , SP treatment with Zyvox for 6 weeks was admitted with worsening left foot wound, X rays and MRI finding were suggestive of ostemylitis of 4th meta tarsal and proximal phalanx , on IV Vancomycin and Zosyn.Wound cultures are growing MSSA.Patient underwent trans meta tarsal amputation by Podiatry.,Awaiting Pathology results.Podiatry and ID is following , need home services at discharge.
--- NOTE | 2018-02-27 16:46 | CP.PCM.PN ---
Subjective - Date & Time of Evaluation Date of Evaluation: 02/27/18 Time of Evaluation: 11:50 - Subjective Subjective: No increase in left leg pain, no fevers, not in distress. Objective - Vital Signs/Intake and Output Vital Signs (last 24 hours): Temp Pulse Resp BP Pulse Ox 98.9 F 74 18 134/64 94 L 02/26/18 22:38 02/26/18 21:52 02/26/18 21:52 02/26/18 21:52 02/26/18 21:52 Intake and Output: 02/27/18 02/27/18 06:59 18:59 Intake Total 620 Output Total 525 Balance 95 - Medications Medications: Current Medications Acetaminophen (Tylenol 325mg Tab) 650 mg PO Q6H PRN PRN Reason: Other Last Admin: 02/26/18 21:38 Dose: 650 mg Amlodipine Besylate (Norvasc) 10 mg PO DAILY [facility] Last Admin: 02/26/18 09:51 Dose: 10 mg Aspirin (Ecotrin) 81 mg PO DAILY [facility] Last Admin: 02/26/18 11:07 Dose: 81 mg Atorvastatin Calcium (Lipitor) 80 mg PO DIN [facility] Last Admin: 02/26/18 17:10 Dose: 80 mg Benzocaine/Menthol (Cepacol Sore Throat) 1 allie MT Q2H PRN PRN Reason: Sore Throat Last Admin: 02/24/18 15:37 Dose: 1 allie Dextrose (Dextrose 50% Inj) 0 ml IV STAT PRN; Protocol PRN Reason: Hypoglycemia Protocol Enoxaparin Sodium (Lovenox) 40 mg SC DAILY [facility] PRN Reason: Protocol Last Admin: 02/24/18 15:45 Dose: Not Given Dextrose (Dextrose 5% In Water 1000 Ml) 1,000 mls @ 0 mls/hr IV .Q0M PRN; Protocol; Per Protocol PRN Reason: Hypoglycemia Protocol Piperacillin Sod/Tazobactam Sod (Zosyn 3.375 In Ns 100ml) 100 mls @ 200 mls/hr IVPB Q6 [facility] PRN Reason: Protocol Stop: 03/02/18 00:01 Last Admin: 02/27/18 05:39 Dose: 200 mls/hr Vancomycin HCl (Vancomycin 1gm) 1 gm in 250 mls @ 167 mls/hr IVPB Q12 [facility] PRN Reason: Protocol Last Admin: 02/26/18 21:38 Dose: 167 mls/hr Insulin Detemir (Levemir) 10 unit SC HS [facility] Last Admin: 02/26/18 21:38 Dose: 10 units Insulin Human Regular (Humulin R) 0 units SC ACHS [facility] PRN Reason: Protocol Last Admin: 02/26/18 21:29 Dose: Not Given Lisinopril (Zestril) 20 mg PO DAILY [facility] Last Admin: 02/26/18 09:52 Dose: 20 mg Ondansetron HCl (Zofran Inj) 4 mg IVP ONCE PRN PRN Reason: Nausea/Vomiting Vitamin D (Vitamin D 400 Intl Units Tab) 600 intlu PO DAILY [facility] Last Admin: 02/26/18 10:06 Dose: 600 intlu - Labs Labs: 02/26/18 06:40 02/26/18 06:40 PT 13.7 SECONDS (9.4-12.5) H 02/22/18 15:30 INR 1.20 (0.93-1.08) H 02/22/18 15:30 APTT 28.4 Seconds (25.1-36.5) 02/22/18 15:30 - Constitutional Appears: Non-toxic, Chronically Ill - Head Exam Head Exam: NORMAL INSPECTION - Neck Exam Neck Exam: absent: Meningismus - Respiratory Exam Respiratory Exam: Decreased Breath Sounds - Cardiovascular Exam Cardiovascular Exam: +S1, +S2 - GI/Abdominal Exam GI & Abdominal Exam: Soft. absent: Tenderness - Extremities Exam Additional comments: left leg with dressings and bandages in place Assessment and Plan - Assessment and Plan (Free Text) Plan: Assessment sepsis due to left foot skin and skin structure infection with 3rd and 4th metatarsal osteomyelitis, S/P tranmetatarsal amputation POD #3 history of left foot 5th toe osteomyelitis with skin and skin structure infection, growing MRSA in the soft tissue and MSSA in the bone S/P partial 5th ray amputation and debridement of tissue S/P treatment with 6 weeks of Zyvox DM peripheral neuropathy CAD HTN Plan continue Vancoymcin and Zosyn for now pending OR cultures and pathology
[2018-02-27] MEDS: Cholecalciferol 400 Intl Units Tab PO SCH (17:29)
[2018-02-27] MEDS: Insulin Detemir 100 units/ml Vial (Levemir) SC SCH (22:53)
[2018-02-28] MEDS: Piperacillin/Tazobact 3.375 gm 100 ML IVPB SCH ×2 (00:05→05:26)
[2018-02-28] MEDS: Vancomycin 1gm in NS 250ml 1 GM/250 ML BAG IVPB SCH (09:21)
[2018-02-28 09:49] LABS: BASO # 0.04 K/mm3 (0.0-2.0); BASO % 0.5 % (0.0-3.0); EOS # 0.2 (0.0-0.7); EOS % 2.7 % (1.5-5.0); GRAN # 5.77 (1.4-6.5); GRAN % 67.3 % (50.0-68.0); HEMOGLOBIN 8.1 g/dL (14.0-18.0); LYMPH # 2.1 (1.2-3.4); LYMPH % 24.6 % (22.0-35.0); MEAN CELL VOLUME 89.1 fl (80.0-105.0); MEAN CORPUSCULAR HEMOGLOBIN 29.3 pg (25.0-35.0); MEAN CORPUSCULAR HGB CONC 32.9 g/dl (31.0-37.0); MEAN PLATELET VOLUME 8.3 fl (7.0-11.0); MONO # 0.4 (0.1-0.6); MONO % 4.9 % (1.0-6.0); RBC 2.76 10^6/uL (3.5-6.1); RED CELL DISTRIBUTION WIDTH 13.8 % (11.5-14.5); WHITE BLOOD COUNT 8.6 10^3/ul (4.5-11.0)
[2018-02-28 10:11] LABS: ALBUMIN 3.3 g/dL (3.0-4.8); ALT/SGPT 17 U/L (7-56); AST/SGOT 13 U/L (17-59); BLOOD UREA NITROGEN 13 mg/dL (7-21); CALCIUM 8.8 mg/dL (8.4-10.5); GFR AFRICAN-AMERICAN > 60; GFR NON-AFRICAN AMERICAN > 60
[2018-02-28] MEDS: Insulin Regular 1 UNITS/0.01 ML ML SC SCH ×3 (11:36→22:58)
--- NOTE | 2018-02-28 14:45 | CP.PCM.PN ---
Subjective - Date & Time of Evaluation Date of Evaluation: 02/28/18 Time of Evaluation: 11:00 - Subjective Subjective: Podiatry Progress Note- Dr. Jauregui 62 y/o male seen at bedside this morning 4 day s/p left transmetatarsal amputation. Pt resting comfortably out of bed in chair. Patient is NAD, AAOX3. Denies any events overnight. Patient reports that he has no pain to the left lower extremity. Denies of calf pain or tenderness. Reports has been moving around with walker. Denies F/C/N/V/CP/SOB. No new pedal complaints. Reports may be going home today or tomorrow pending wound culture results. Objective - Vital Signs/Intake and Output Vital Signs (last 24 hours): Temp Pulse Resp BP Pulse Ox 98.5 F 58 L 20 138/104 H 96 02/28/18 06:00 02/28/18 06:00 02/28/18 06:00 02/28/18 09:20 02/28/18 06:00 - Medications Medications: Current Medications Acetaminophen (Tylenol 325mg Tab) 650 mg PO Q6H PRN PRN Reason: Other Last Admin: 02/26/18 21:38 Dose: 650 mg Amlodipine Besylate (Norvasc) 10 mg PO DAILY [facility] Last Admin: 02/28/18 09:20 Dose: 10 mg Aspirin (Ecotrin) 81 mg PO DAILY [facility] Last Admin: 02/27/18 17:29 Dose: 81 mg Atorvastatin Calcium (Lipitor) 80 mg PO DIN [facility] Last Admin: 02/27/18 17:30 Dose: 80 mg Benzocaine/Menthol (Cepacol Sore Throat) 1 allie MT Q2H PRN PRN Reason: Sore Throat Last Admin: 02/24/18 15:37 Dose: 1 allie Dextrose (Dextrose 50% Inj) 0 ml IV STAT PRN; Protocol PRN Reason: Hypoglycemia Protocol Docusate Sodium (Colace) 100 mg PO BID [facility] Stop: 02/28/18 18:00 Last Admin: 02/28/18 09:20 Dose: 100 mg Enoxaparin Sodium (Lovenox) 40 mg SC DAILY [facility] PRN Reason: Protocol Last Admin: 02/24/18 15:45 Dose: Not Given Dextrose (Dextrose 5% In Water 1000 Ml) 1,000 mls @ 0 mls/hr IV .Q0M PRN; Protocol; Per Protocol PRN Reason: Hypoglycemia Protocol Cefazolin Sodium 2 gm/ Sodium (Chloride) 100 mls @ 200 mls/hr IVPB Q8 [facility] PRN Reason: Protocol Insulin Detemir (Levemir) 10 unit SC HS [facility] Last Admin: 02/27/18 22:53 Dose: 10 units Insulin Human Regular (Humulin R) 0 units SC ACHS [facility] PRN Reason: Protocol Last Admin: 02/28/18 11:36 Dose: Not Given Lisinopril (Zestril) 20 mg PO DAILY [facility] Last Admin: 02/28/18 09:20 Dose: 20 mg Ondansetron HCl (Zofran Inj) 4 mg IVP ONCE PRN PRN Reason: Nausea/Vomiting Vitamin D (Vitamin D 400 Intl Units Tab) 600 intlu PO DAILY [facility] Last Admin: 02/27/18 17:29 Dose: 600 intlu - Labs Labs: 02/28/18 09:30 02/28/18 09:30 PT 13.7 SECONDS (9.4-12.5) H 02/22/18 15:30 INR 1.20 (0.93-1.08) H 02/22/18 15:30 APTT 28.4 Seconds (25.1-36.5) 02/22/18 15:30 - Constitutional Appears: Well, Non-toxic - Extremities Exam Extremities Exam: absent: Calf Tenderness Additional comments: LLE focused exam: Vasc: DP pulse 1/4, PT pulse non palpable. Temperature gradient warm to warm. Capillary fill time good to TMA flap. Mild edema noted to the surgical site Neuro: Protective sensation grossly intact Derm: Transmetatarsal amputation surgical site noted with sutures intact, skin edges well coapted with no dehiscence noted at this time. Centrally at TMA is fibrous tissue. Mild active sanguinous drainage noted from surgical site with application of pressure. No malodor, no tunneling or undermining, no fluctuance or bogginess, no purulence noted Ortho: Mild tenderness to palpation of surgical TMA site - Neurological Exam Neurological Exam: Alert, Awake, Oriented x3 - Psychiatric Exam Psychiatric exam: Normal Affect, Normal Mood Assessment and Plan - Assessment and Plan (Free Text) Assessment: 62 y/o male 4 day s/p left transmetarsal amputation secondary to diabetic foot ulcer with osteomyelitis- surgical site stable Plan: Pt seen and evaluated at bedside Discussed with attending Dr. Jauregui WBC=8.6, afebrile Will continue to closely monitor Wound site cleaned with saline and dressed with Adaptic ABD DSD Surgical site not clinically infected- stable Posterior splint reapplied to LLE Pt advised to be NWB at this time with use of crutches/other assistive device Weight bearing status: NWB to the left lower extremity with crutches/other assistive device C/w physical therapy Wound Culture left foot- S. Aureus Continue IV abx per ID Will continue to follow while in house Patient is stable per podiatry for discharge Upon discharge, patient to follow up with Dr. Jauregui within 1 week without fail Patient to continue to NWB in posterior splint and crutches/walker Patient to keep dressing on clean, dry, and intact until office visit with Dr. Jauregui where he will be re-evaluated with dressing change Educated patient on the important of NWB and keeping dressing c/d/i Do not get wet Educated patient on the signs/symptoms of infection and advised to seek help immediately if present. Patient reports understanding all instructions and education
[2018-02-28] MEDS: ceFAZolin 2 GM in Sodium Chloride 0.9% 100 ML IVPB SCH ×2 (14:58→22:59)
--- NOTE | 2018-02-28 15:30 | CP.PCM.PN ---
Subjective - Date & Time of Evaluation Date of Evaluation: 02/28/18 Time of Evaluation: 13:05 - Subjective Subjective: No increased pain in the foot, no fevers. Objective - Vital Signs/Intake and Output Vital Signs (last 24 hours): Temp Pulse Resp BP Pulse Ox 98.5 F 58 L 20 138/104 H 96 02/28/18 06:00 02/28/18 06:00 02/28/18 06:00 02/28/18 09:20 02/28/18 06:00 - Medications Medications: Current Medications Acetaminophen (Tylenol 325mg Tab) 650 mg PO Q6H PRN PRN Reason: Other Last Admin: 02/26/18 21:38 Dose: 650 mg Amlodipine Besylate (Norvasc) 10 mg PO DAILY [facility] Last Admin: 02/28/18 09:20 Dose: 10 mg Aspirin (Ecotrin) 81 mg PO DAILY [facility] Last Admin: 02/27/18 17:29 Dose: 81 mg Atorvastatin Calcium (Lipitor) 80 mg PO DIN [facility] Last Admin: 02/27/18 17:30 Dose: 80 mg Benzocaine/Menthol (Cepacol Sore Throat) 1 allie MT Q2H PRN PRN Reason: Sore Throat Last Admin: 02/24/18 15:37 Dose: 1 allie Dextrose (Dextrose 50% Inj) 0 ml IV STAT PRN; Protocol PRN Reason: Hypoglycemia Protocol Docusate Sodium (Colace) 100 mg PO BID [facility] Stop: 02/28/18 18:00 Last Admin: 02/28/18 09:20 Dose: 100 mg Enoxaparin Sodium (Lovenox) 40 mg SC DAILY [facility] PRN Reason: Protocol Last Admin: 02/24/18 15:45 Dose: Not Given Dextrose (Dextrose 5% In Water 1000 Ml) 1,000 mls @ 0 mls/hr IV .Q0M PRN; Protocol; Per Protocol PRN Reason: Hypoglycemia Protocol Insulin Detemir (Levemir) 10 unit SC HS [facility] Last Admin: 02/27/18 22:53 Dose: 10 units Insulin Human Regular (Humulin R) 0 units SC ACHS [facility] PRN Reason: Protocol Last Admin: 02/27/18 22:54 Dose: Not Given Lisinopril (Zestril) 20 mg PO DAILY [facility] Last Admin: 02/28/18 09:20 Dose: 20 mg Ondansetron HCl (Zofran Inj) 4 mg IVP ONCE PRN PRN Reason: Nausea/Vomiting Vitamin D (Vitamin D 400 Intl Units Tab) 600 intlu PO DAILY [facility] Last Admin: 02/27/18 17:29 Dose: 600 intlu - Labs Labs: 02/28/18 09:30 02/28/18 09:30 PT 13.7 SECONDS (9.4-12.5) H 02/22/18 15:30 INR 1.20 (0.93-1.08) H 02/22/18 15:30 APTT 28.4 Seconds (25.1-36.5) 02/22/18 15:30 - Constitutional Appears: Non-toxic, Chronically Ill - Head Exam Head Exam: NORMAL INSPECTION - ENT Exam ENT Exam: Mucous Membranes Moist - Neck Exam Neck Exam: absent: Lymphadenopathy, Meningismus - Respiratory Exam Respiratory Exam: Decreased Breath Sounds. absent: Rales - Cardiovascular Exam Cardiovascular Exam: +S1, +S2 - GI/Abdominal Exam GI & Abdominal Exam: Soft. absent: Tenderness - Extremities Exam Additional comments: left leg with dressings in place Assessment and Plan - Assessment and Plan (Free Text) Plan: Assessment sepsis due to left foot skin and skin structure infection with 3rd and 4th metatarsal osteomyelitis, S/P tranmetatarsal amputation POD #4, growing MSSA from the wound history of left foot 5th toe osteomyelitis with skin and skin structure infection, growing MRSA in the soft tissue and MSSA in the bone S/P partial 5th ray amputation and debridement of tissue S/P treatment with 6 weeks of Zyvox DM peripheral neuropathy CAD HTN Plan continue cefazolin for now pending OR cultures and pathology
--- NOTE | 2018-02-28 18:32 | CP.PCM.PN ---
Subjective - Date & Time of Evaluation Date of Evaluation: 02/28/18 Time of Evaluation: 08:30 - Subjective Subjective: Varinder Andersen, PGY-1 Progress Note for Hospitalist Service Patient seen and examined bedside. Patient had no acute events overnight. POD # 4. Patient denies acute pain, SOB, and nausea overnight. Patient notes oozing on wrap from his L 5th metatarsal surgical site, but patient admits that may be residue since wrap was not changed at that time. Objective - Vital Signs/Intake and Output Vital Signs (last 24 hours): Temp Pulse Resp BP Pulse Ox 98.8 F 52 L 20 158/83 H 97 02/28/18 14:00 02/28/18 14:00 02/28/18 14:00 02/28/18 14:00 02/28/18 14:00 - Medications Medications: Current Medications Acetaminophen (Tylenol 325mg Tab) 650 mg PO Q6H PRN PRN Reason: Other Last Admin: 02/26/18 21:38 Dose: 650 mg Amlodipine Besylate (Norvasc) 10 mg PO DAILY [facility] Last Admin: 02/28/18 09:20 Dose: 10 mg Aspirin (Ecotrin) 81 mg PO DAILY [facility] Last Admin: 02/27/18 17:29 Dose: 81 mg Atorvastatin Calcium (Lipitor) 80 mg PO DIN [facility] Last Admin: 02/27/18 17:30 Dose: 80 mg Benzocaine/Menthol (Cepacol Sore Throat) 1 allie MT Q2H PRN PRN Reason: Sore Throat Last Admin: 02/24/18 15:37 Dose: 1 allie Dextrose (Dextrose 50% Inj) 0 ml IV STAT PRN; Protocol PRN Reason: Hypoglycemia Protocol Enoxaparin Sodium (Lovenox) 40 mg SC DAILY [facility] PRN Reason: Protocol Last Admin: 02/24/18 15:45 Dose: Not Given Dextrose (Dextrose 5% In Water 1000 Ml) 1,000 mls @ 0 mls/hr IV .Q0M PRN; Protocol; Per Protocol PRN Reason: Hypoglycemia Protocol Cefazolin Sodium 2 gm/ Sodium (Chloride) 100 mls @ 200 mls/hr IVPB Q8 [facility] PRN Reason: Protocol Last Admin: 02/28/18 14:58 Dose: 200 mls/hr Insulin Detemir (Levemir) 10 unit SC HS [facility] Last Admin: 02/27/18 22:53 Dose: 10 units Insulin Human Regular (Humulin R) 0 units SC ACHS [facility] PRN Reason: Protocol Last Admin: 02/28/18 11:36 Dose: Not Given Lisinopril (Zestril) 20 mg PO DAILY [facility] Last Admin: 02/28/18 09:20 Dose: 20 mg Ondansetron HCl (Zofran Inj) 4 mg IVP ONCE PRN PRN Reason: Nausea/Vomiting Vitamin D (Vitamin D 400 Intl Units Tab) 600 intlu PO DAILY [facility] Last Admin: 02/27/18 17:29 Dose: 600 intlu - Labs Labs: 02/28/18 09:30 02/28/18 09:30 PT 13.7 SECONDS (9.4-12.5) H 02/22/18 15:30 INR 1.20 (0.93-1.08) H 02/22/18 15:30 APTT 28.4 Seconds (25.1-36.5) 02/22/18 15:30 - Constitutional Appears: Well - Head Exam Head Exam: ATRAUMATIC, NORMAL INSPECTION, NORMOCEPHALIC - Eye Exam Eye Exam: EOMI, Normal appearance, PERRL Pupil Exam: NORMAL ACCOMODATION, PERRL - ENT Exam ENT Exam: Mucous Membranes Moist, Normal Exam - Neck Exam Neck Exam: Full ROM, Normal Inspection. absent: Lymphadenopathy - Respiratory Exam Respiratory Exam: Clear to Ausculation Bilateral, NORMAL BREATHING PATTERN - Cardiovascular Exam Cardiovascular Exam: RRR, +S1, +S2. absent: Murmur - GI/Abdominal Exam GI & Abdominal Exam: Soft, Normal Bowel Sounds. absent: Tenderness - Extremities Exam Extremities Exam: absent: Joint Swelling, Pedal Edema - Neurological Exam Neurological Exam: Alert, Awake, CN II-XII Intact, Normal Gait, Oriented x3 - Psychiatric Exam Psychiatric exam: Normal Affect, Normal Mood - Skin Skin Exam: Dry, Intact, Normal Color, Warm Assessment and Plan - Assessment and Plan (Free Text) Assessment: Ms. Baez is a 62 year old M w/ PMH of DM2, PVD, CAD, HTN, Chronic neuropathy , Osteomyelitis s/p Left 5th metatarsal amputation 12/01, and s/p debridement + L anterior tibial angioplasty 12/31 admitted for chronic L anterior foot ulceration worsening x 1 week. Pt. is POD#4 S/P Transmetatarsal resection of the L foot. Plan: Osteomyelitis L 3rd + 4th digits s/p Transmetatarsal amputation POD#4 on IV ABX Patient is s/p L 5th metatarsal amputation (11/2017) and debridement + anterior tibial angioplasty (12/2017) 2/2 poor vascularization Pt. Afebrile; No leukocytosis; On cefazolin 2 g IV q8 Wound culture + for MSSA; Operative Cultures pending Operative Pathology pending Pod following, ID following IR following, recommendations appreciated Wound care following PT Eval completed - Home W/ Services Normocytic Anemia - stable Most likely 2/2 to Anemia of Chronic disease; CBC showing rise in Hb this AM. Pt. shows no s/s of hemodynamic instability; VSS Hb on admission low; MCV normal; Ferritin elevated; Retic Count normal Hx Type 2 Diabetes Glucose POC range: 108-219 in last 24 horus Continue Levemir 10 Continue on ISS Regular A1C on 02/21 was 8.5, improved from 9.4 on 01/07 Hx Hypertension Reviewed at home blood pressure medications Continued home Lisinopril 20 PO and amlodipine 10 PO Prophylaxis DVT/ GI - Lovenox/ Protonix Dispo: Patient to be DC'd home w/ services per PT once medically stable if path report has clear margins. Patient seen, examined, and discussed at length w/ attending physician Dr. Aureliano Andersen, PGY-1
[2018-02-28] MEDS: Cholecalciferol 400 Intl Units Tab PO SCH (18:46)
[2018-02-28] MEDS: Insulin Detemir 100 units/ml Vial (Levemir) SC SCH (22:58)
[2018-03-01] MEDS: ceFAZolin 2 GM in Sodium Chloride 0.9% 100 ML IVPB SCH ×3 (06:01→22:27)
[2018-03-01 08:39] LABS: BASO # 0.03 K/mm3 (0.0-2.0); BASO % 0.3 % (0.0-3.0); EOS # 0.2 (0.0-0.7); EOS % 2.3 % (1.5-5.0); GRAN # 6.36 (1.4-6.5); GRAN % 68.8 % (50.0-68.0); HEMOGLOBIN 8.3 g/dL (14.0-18.0); LYMPH # 2.3 (1.2-3.4); LYMPH % 24.5 % (22.0-35.0); MEAN CELL VOLUME 89.9 fl (80.0-105.0); MEAN CORPUSCULAR HGB CONC 33.3 g/dl (31.0-37.0); MEAN PLATELET VOLUME 8.1 fl (7.0-11.0); MONO # 0.4 (0.1-0.6); MONO % 4.1 % (1.0-6.0); RBC 2.77 10^6/uL (3.5-6.1); RED CELL DISTRIBUTION WIDTH 13.7 % (11.5-14.5); WHITE BLOOD COUNT 9.2 10^3/ul (4.5-11.0)
--- NOTE | 2018-03-01 08:59 | CP.PCM.PN ---
<Varinder Andersen - Last Filed: 03/01/18 21:15> Subjective - Date & Time of Evaluation Date of Evaluation: 03/01/18 Time of Evaluation: 07:00 - Subjective Subjective: Varinder Andersen, PGY-1 Progress Note for Hospitalist Service Patient seen and evaluated at bedside. Patient complains of some neuropathic pain below his L knee and blurry vision, but patient mentioned that he feels both sensations often previously. Patient denies CP, SOB, abdominal pain. Patient admits to some throbbing of the casted L leg, but states he feels similar sensations regularly even when outside hospital. Objective - Vital Signs/Intake and Output Vital Signs (last 24 hours): Temp Pulse Resp BP Pulse Ox 99.5 F 58 L 20 113/58 L 98 03/01/18 06:00 03/01/18 06:00 03/01/18 06:00 03/01/18 06:00 03/01/18 06:00 Intake and Output: 03/01/18 03/01/18 06:59 18:59 Intake Total 660 Output Total 975 Balance -315 - Medications Medications: Current Medications Acetaminophen (Tylenol 325mg Tab) 650 mg PO Q6H PRN PRN Reason: Other Last Admin: 02/26/18 21:38 Dose: 650 mg Amlodipine Besylate (Norvasc) 10 mg PO DAILY [facility] Last Admin: 02/28/18 09:20 Dose: 10 mg Aspirin (Ecotrin) 81 mg PO DAILY [facility] Last Admin: 02/28/18 18:18 Dose: 81 mg Atorvastatin Calcium (Lipitor) 80 mg PO DIN [facility] Last Admin: 02/28/18 18:20 Dose: 80 mg Benzocaine/Menthol (Cepacol Sore Throat) 1 allie MT Q2H PRN PRN Reason: Sore Throat Last Admin: 02/24/18 15:37 Dose: 1 allie Dextrose (Dextrose 50% Inj) 0 ml IV STAT PRN; Protocol PRN Reason: Hypoglycemia Protocol Enoxaparin Sodium (Lovenox) 40 mg SC DAILY [facility] PRN Reason: Protocol Last Admin: 02/24/18 15:45 Dose: Not Given Dextrose (Dextrose 5% In Water 1000 Ml) 1,000 mls @ 0 mls/hr IV .Q0M PRN; Protocol; Per Protocol PRN Reason: Hypoglycemia Protocol Cefazolin Sodium 2 gm/ Sodium (Chloride) 100 mls @ 200 mls/hr IVPB Q8 [facility] PRN Reason: Protocol Last Admin: 03/01/18 06:01 Dose: 200 mls/hr Insulin Detemir (Levemir) 10 unit SC HS [facility] Last Admin: 02/28/18 22:58 Dose: 10 units Insulin Human Regular (Humulin R) 0 units SC ACHS [facility] PRN Reason: Protocol Last Admin: 02/28/18 22:58 Dose: Not Given Lisinopril (Zestril) 20 mg PO DAILY [facility] Last Admin: 02/28/18 09:20 Dose: 20 mg Ondansetron HCl (Zofran Inj) 4 mg IVP ONCE PRN PRN Reason: Nausea/Vomiting Vitamin D (Vitamin D 400 Intl Units Tab) 600 intlu PO DAILY [facility] Last Admin: 02/28/18 18:46 Dose: 600 intlu - Labs Labs: 03/01/18 08:15 02/28/18 09:30 PT 13.7 SECONDS (9.4-12.5) H 02/22/18 15:30 INR 1.20 (0.93-1.08) H 02/22/18 15:30 APTT 28.4 Seconds (25.1-36.5) 02/22/18 15:30 - Constitutional Appears: Well, No Acute Distress - Head Exam Head Exam: ATRAUMATIC, NORMOCEPHALIC - Eye Exam Eye Exam: EOMI, PERRL Pupil Exam: NORMAL ACCOMODATION, PERRL - ENT Exam ENT Exam: Mucous Membranes Moist - Neck Exam Neck Exam: Normal Inspection - Respiratory Exam Respiratory Exam: Clear to Ausculation Bilateral, NORMAL BREATHING PATTERN. absent: Rales, Rhonchi, Wheezes - Cardiovascular Exam Cardiovascular Exam: RRR, +S1, +S2 - GI/Abdominal Exam GI & Abdominal Exam: Soft, Normal Bowel Sounds. absent: Guarding, Rigid, Organomegaly - Extremities Exam Extremities Exam: Calf Tenderness. absent: Joint Swelling - Neurological Exam Neurological Exam: Alert, Awake, Oriented x3 - Skin Skin Exam: Dry, Normal Color, Warm Assessment and Plan - Assessment and Plan (Free Text) Assessment: Mr. Baez is a 62 year old M w/ PMH of DM2, PVD, CAD, HTN, Chronic neuropathy , Osteomyelitis s/p Left 5th metatarsal amputation 12/01, and s/p debridement + L anterior tibial angioplasty 12/31 admitted for chronic L anterior foot ulceration worsening x 1 week. Pt. is POD#5 S/P Transmetatarsal resection of the L foot. Osteomyelitis L 3rd + 4th digits s/p Transmetatarsal amputation POD#5 on IV ABX Patient is s/p L 5th metatarsal amputation (11/2017) and debridement + anterior tibial angioplasty (12/2017) 2/2 poor vascularization Pt. Afebrile; No leukocytosis; Alk Phos of 130- likely 2/2 bone breakdown from surgery. On cefazolin 2 g IV q8 day 2 Wound culture + for MSSA; Operative Cultures pending Operative Pathology report - Hemmorhage and granulation tissue involving 3rd and 4th digits. Inflammatory process involves soft tissue resection margin. Podiatry following - would appreciate recommendations for disposition ID following, recommendations appreciated for ongoing antibiotic coverage IR following Wound care following PT Eval completed - Home W/ Services Hx Type 2 Diabetes Continue Levemir 10 Continue on ISS Regular A1C on 02/21 was 8.5, improved from 9.4 on 01/07 Hx Hypertension Reviewed at home blood pressure medications Continued home Lisinopril 20 PO and amlodipine 10 PO Prophylaxis DVT/ GI - Lovenox/ Protonix Patient seen, case examined, and agreed upon with Dr. Derick Moreno. Varinder Andersen, PGY-1 <Heena Moreno - Last Filed: 03/02/18 08:07> Objective - Vital Signs/Intake and Output Vital Signs (last 24 hours): Temp Pulse Resp BP Pulse Ox 99.3 F 59 L 16 145/74 98 03/01/18 22:42 03/01/18 22:42 03/01/18 22:42 03/01/18 22:42 03/01/18 22:42 Intake and Output: 03/02/18 03/02/18 06:59 18:59 Intake Total 660 Output Total 600 Balance 60 - Medications Medications: Current Medications Acetaminophen (Tylenol 325mg Tab) 650 mg PO Q6H PRN PRN Reason: Other Last Admin: 02/26/18 21:38 Dose: 650 mg Amlodipine Besylate (Norvasc) 10 mg PO DAILY [facility] Last Admin: 03/01/18 10:42 Dose: 10 mg Aspirin (Ecotrin) 81 mg PO DAILY [facility] Last Admin: 03/01/18 10:41 Dose: 81 mg Atorvastatin Calcium (Lipitor) 80 mg PO DIN [facility] Last Admin: 03/01/18 17:26 Dose: 80 mg Benzocaine/Menthol (Cepacol Sore Throat) 1 allie MT Q2H PRN PRN Reason: Sore Throat Last Admin: 02/24/18 15:37 Dose: 1 allie Dextrose (Dextrose 50% Inj) 0 ml IV STAT PRN; Protocol PRN Reason: Hypoglycemia Protocol Enoxaparin Sodium (Lovenox) 40 mg SC DAILY [facility] PRN Reason: Protocol Last Admin: 02/24/18 15:45 Dose: Not Given Dextrose (Dextrose 5% In Water 1000 Ml) 1,000 mls @ 0 mls/hr IV .Q0M PRN; Protocol; Per Protocol PRN Reason: Hypoglycemia Protocol Cefazolin Sodium 2 gm/ Sodium (Chloride) 100 mls @ 200 mls/hr IVPB Q8 [facility] PRN Reason: Protocol Last Admin: 03/02/18 06:01 Dose: 200 mls/hr Insulin Detemir (Levemir) 10 unit SC HS [facility] Last Admin: 03/01/18 22:28 Dose: 10 units Insulin Human Regular (Humulin R) 0 units SC ACHS [facility] PRN Reason: Protocol Last Admin: 03/01/18 22:28 Dose: Not Given Lisinopril (Zestril) 20 mg PO DAILY [facility] Last Admin: 03/01/18 10:42 Dose: 20 mg Ondansetron HCl (Zofran Inj) 4 mg IVP ONCE PRN PRN Reason: Nausea/Vomiting Vitamin D (Vitamin D 400 Intl Units Tab) 600 intlu PO DAILY [facility] Last Admin: 03/01/18 10:41 Dose: 600 intlu - Labs Labs: 03/01/18 08:15 03/01/18 08:15 PT 13.7 SECONDS (9.4-12.5) H 02/22/18 15:30 INR 1.20 (0.93-1.08) H 02/22/18 15:30 APTT 28.4 Seconds (25.1-36.5) 02/22/18 15:30 Attending/Attestation - Attestation I have personally seen and examined this patient.: Yes I have fully participated in the care of the patient.: Yes I have reviewed all pertinent clinical information, including history, physical exam and plan: Yes Notes (Text): 03/01/18 62 year old male with past medical history of diabetes, CAD, hypertension and osteomyelitis s/p left 5th metatarsal amputation (12/01), s/p debridement and left anterior tibial angioplasty (12/31) who presented with worsening chronic left anterior foot ulceration. He is being followed by ID and podiatry. He is s/p transmetatarsal resection of left foot POD #5. Operative pathology was reviewed as above and culture was pending. Will follow up with ID and podiatry recommendations. He is on insulin ss and levemir for diabetes. Can add gabapentin for neuropathy. He was recommended to follow up with his nail specialist yearly. He is on norvasc and lisinopril for hypertension. Anemia likely secondary to chronic anemia. Continue to monitor. Heena Moreno MD Hospitalist.
[2018-03-01 09:04] LABS: ALB/GLOB RATIO 0.9 (1.1-1.8); ALBUMIN 3.6 g/dL (3.0-4.8); ALT/SGPT 28 U/L (7-56); AST/SGOT 47 U/L (17-59); BLOOD UREA NITROGEN 12 mg/dL (7-21); CALCIUM 8.9 mg/dL (8.4-10.5); GFR AFRICAN-AMERICAN > 60; GFR NON-AFRICAN AMERICAN > 60
[2018-03-01] MEDS: Cholecalciferol 400 Intl Units Tab PO SCH (10:41)
[2018-03-01] MEDS: Insulin Regular 1 UNITS/0.01 ML ML SC SCH ×4 (10:43→22:28)
[2018-03-01] MEDS: Insulin Detemir 100 units/ml Vial (Levemir) SC SCH (22:28)
[2018-03-02] MEDS: ceFAZolin 2 GM in Sodium Chloride 0.9% 100 ML IVPB SCH ×3 (06:01→22:08)
--- NOTE | 2018-03-02 06:21 | CP.PCM.PN ---
<Varinder Andersen - Last Filed: 03/02/18 11:03> Subjective - Date & Time of Evaluation Date of Evaluation: 03/02/18 Time of Evaluation: 06:21 - Subjective Subjective: Varinder Andersen, PGY-1 Progress Note for Hospitalist Service Patient seen and examined at bedside. Patient complains of minor neuropathic pain in his L inner lower leg. Offered pain medication but patient denied. Patient denies SOB, CP, abdominal pain, and blurry vision. Patient reports unsteadiness when ambulating. Objective - Vital Signs/Intake and Output Vital Signs (last 24 hours): Temp Pulse Resp BP Pulse Ox 99.3 F 59 L 16 145/74 98 03/01/18 22:42 03/01/18 22:42 03/01/18 22:42 03/01/18 22:42 03/01/18 22:42 Intake and Output: 03/01/18 03/02/18 18:59 06:59 Intake Total 540 660 Output Total 700 600 Balance -160 60 - Medications Medications: Current Medications Acetaminophen (Tylenol 325mg Tab) 650 mg PO Q6H PRN PRN Reason: Other Last Admin: 02/26/18 21:38 Dose: 650 mg Amlodipine Besylate (Norvasc) 10 mg PO DAILY [facility] Last Admin: 03/01/18 10:42 Dose: 10 mg Aspirin (Ecotrin) 81 mg PO DAILY [facility] Last Admin: 03/01/18 10:41 Dose: 81 mg Atorvastatin Calcium (Lipitor) 80 mg PO DIN [facility] Last Admin: 03/01/18 17:26 Dose: 80 mg Benzocaine/Menthol (Cepacol Sore Throat) 1 allie MT Q2H PRN PRN Reason: Sore Throat Last Admin: 02/24/18 15:37 Dose: 1 allie Dextrose (Dextrose 50% Inj) 0 ml IV STAT PRN; Protocol PRN Reason: Hypoglycemia Protocol Enoxaparin Sodium (Lovenox) 40 mg SC DAILY [facility] PRN Reason: Protocol Last Admin: 02/24/18 15:45 Dose: Not Given Dextrose (Dextrose 5% In Water 1000 Ml) 1,000 mls @ 0 mls/hr IV .Q0M PRN; Protocol; Per Protocol PRN Reason: Hypoglycemia Protocol Cefazolin Sodium 2 gm/ Sodium (Chloride) 100 mls @ 200 mls/hr IVPB Q8 [facility] PRN Reason: Protocol Last Admin: 03/02/18 06:01 Dose: 200 mls/hr Insulin Detemir (Levemir) 10 unit SC HS [facility] Last Admin: 03/01/18 22:28 Dose: 10 units Insulin Human Regular (Humulin R) 0 units SC ACHS [facility] PRN Reason: Protocol Last Admin: 03/01/18 22:28 Dose: Not Given Lisinopril (Zestril) 20 mg PO DAILY [facility] Last Admin: 03/01/18 10:42 Dose: 20 mg Ondansetron HCl (Zofran Inj) 4 mg IVP ONCE PRN PRN Reason: Nausea/Vomiting Vitamin D (Vitamin D 400 Intl Units Tab) 600 intlu PO DAILY [facility] Last Admin: 03/01/18 10:41 Dose: 600 intlu - Labs Labs: 03/01/18 08:15 03/01/18 08:15 PT 13.7 SECONDS (9.4-12.5) H 02/22/18 15:30 INR 1.20 (0.93-1.08) H 02/22/18 15:30 APTT 28.4 Seconds (25.1-36.5) 02/22/18 15:30 - Constitutional Appears: Well, No Acute Distress - Head Exam Head Exam: ATRAUMATIC, NORMAL INSPECTION, NORMOCEPHALIC - Eye Exam Eye Exam: EOMI, Normal appearance, PERRL Pupil Exam: NORMAL ACCOMODATION, PERRL - ENT Exam ENT Exam: Mucous Membranes Moist - Neck Exam Neck Exam: Normal Inspection - Respiratory Exam Respiratory Exam: Clear to Ausculation Bilateral, NORMAL BREATHING PATTERN - Cardiovascular Exam Cardiovascular Exam: RRR, +S1, +S2 - GI/Abdominal Exam GI & Abdominal Exam: Soft, Normal Bowel Sounds. absent: Tenderness - Extremities Exam Extremities Exam: Full ROM, Normal Capillary Refill Additional comments: L leg casted below the knee. No blood or oozing noted. - Back Exam Back Exam: NORMAL INSPECTION - Skin Skin Exam: Dry, Normal Color, Warm Assessment and Plan - Assessment and Plan (Free Text) Assessment: Mr. Baez is a 62 year old M w/ PMH of DM2, PVD, CAD, HTN, Chronic neuropathy , Osteomyelitis s/p Left 5th metatarsal amputation 12/01, and s/p debridement + L anterior tibial angioplasty 12/31 admitted for chronic L anterior foot ulceration worsening x 1 week. Pt. is POD#6 S/P Transmetatarsal resection of the L foot. Osteomyelitis L 3rd + 4th digits s/p Transmetatarsal amputation POD#6 on IV ABX Patient is s/p L 5th metatarsal amputation (11/2017) and debridement + anterior tibial angioplasty (12/2017) 2/2 poor vascularization Pt. Afebrile; No leukocytosis; Alk Phos of 130- likely 2/2 bone breakdown from surgery. On cefazolin 2 g IV q8 day 3 Wound culture + for MSSA; Operative Pathology report - Hemorrhage and granulation tissue involving 3rd and 4th digits. Inflammatory process involves soft tissue resection margin. Podiatry following: will keep in touch with ID as far as OR findings and final plan. ID following- Dr. Yeung recommends 4-6 weeks of antibiotics (currently on cefazolin for MSSA) with weekly esr, crp, cbc, and cmp. IR following Wound care following PT re-evaluation appreciated- patient reports feeling unstable walking with cane. Hx Type 2 Diabetes Continue Levemir 10 Continue on Medium ISS Regular A1C on 02/21 was 8.5, improved from 9.4 on 01/07 Patient offered gabapentin to relieve his neuropathic pain in leg but patient rejected use at this time. Patient said he will monitor pain threshold himself and may accept medication if pain worsens. Hx Hypertension Reviewed at home blood pressure medications Continued home Lisinopril 20 PO and amlodipine 10 PO Prophylaxis DVT/ GI - Lovenox/ Protonix Patient seen, case reviewed, and plan agreed upon with Dr. Derick Moreno. Varinder Andersen, PGY-1 <Heena Moreno - Last Filed: 03/02/18 12:21> Objective - Vital Signs/Intake and Output Vital Signs (last 24 hours): Temp Pulse Resp BP Pulse Ox 98.2 F 57 L 20 151/74 H 95 03/02/18 06:00 03/02/18 06:00 03/02/18 06:00 03/02/18 11:25 03/02/18 06:00 Intake and Output: 03/02/18 03/02/18 06:59 18:59 Intake Total 660 Output Total 600 Balance 60 - Medications Medications: Current Medications Acetaminophen (Tylenol 325mg Tab) 650 mg PO Q6H PRN PRN Reason: Other Last Admin: 02/26/18 21:38 Dose: 650 mg Amlodipine Besylate (Norvasc) 10 mg PO DAILY [facility] Last Admin: 03/02/18 11:25 Dose: 10 mg Aspirin (Ecotrin) 81 mg PO DAILY [facility] Last Admin: 03/01/18 10:41 Dose: 81 mg Atorvastatin Calcium (Lipitor) 80 mg PO DIN [facility] Last Admin: 03/01/18 17:26 Dose: 80 mg Benzocaine/Menthol (Cepacol Sore Throat) 1 allie MT Q2H PRN PRN Reason: Sore Throat Last Admin: 02/24/18 15:37 Dose: 1 allie Dextrose (Dextrose 50% Inj) 0 ml IV STAT PRN; Protocol PRN Reason: Hypoglycemia Protocol Enoxaparin Sodium (Lovenox) 40 mg SC DAILY [facility] PRN Reason: Protocol Last Admin: 02/24/18 15:45 Dose: Not Given Dextrose (Dextrose 5% In Water 1000 Ml) 1,000 mls @ 0 mls/hr IV .Q0M PRN; Protocol; Per Protocol PRN Reason: Hypoglycemia Protocol Cefazolin Sodium 2 gm/ Sodium (Chloride) 100 mls @ 200 mls/hr IVPB Q8 [facility] PRN Reason: Protocol Last Admin: 03/02/18 06:01 Dose: 200 mls/hr Insulin Detemir (Levemir) 10 unit SC HS [facility] Last Admin: 03/01/18 22:28 Dose: 10 units Insulin Human Regular (Humulin R) 0 units SC ACHS [facility] PRN Reason: Protocol Last Admin: 03/02/18 11:26 Dose: 1 units Lisinopril (Zestril) 20 mg PO DAILY [facility] Last Admin: 03/02/18 11:25 Dose: 20 mg Ondansetron HCl (Zofran Inj) 4 mg IVP ONCE PRN PRN Reason: Nausea/Vomiting Vitamin D (Vitamin D 400 Intl Units Tab) 600 intlu PO DAILY [facility] Last Admin: 03/01/18 10:41 Dose: 600 intlu - Labs Labs: 03/02/18 08:45 03/02/18 08:45 PT 13.7 SECONDS (9.4-12.5) H 02/22/18 15:30 INR 1.20 (0.93-1.08) H 02/22/18 15:30 APTT 28.4 Seconds (25.1-36.5) 02/22/18 15:30 Attending/Attestation - Attestation I have personally seen and examined this patient.: Yes I have fully participated in the care of the patient.: Yes I have reviewed all pertinent clinical information, including history, physical exam and plan: Yes Notes (Text): 03/02/18 12:20 62 year old male with past medical history of diabetes, CAD, hypertension and osteomyelitis s/p left 5th metatarsal amputation (12/01), s/p debridement and left anterior tibial angioplasty (12/31) who presented with worsening chronic left anterior foot ulceration. He is being followed by ID and podiatry. He is s/p transmetatarsal resection of left foot POD #6. Operative pathology was reviewed as above. Will follow up with ID and podiatry recommendations. He is on insulin ss and levemir for diabetes. Offered gabapentin for neuropathy which patient declined. Continue with physical therapy. He was recommended to follow up with his health coach yearly. He is on norvasc and lisinopril for hypertension. Anemia likely secondary to chronic anemia. Continue to monitor. Heena Moreno MD Hospitalist.
--- NOTE | 2018-03-02 08:06 | OP ---
PROCEDURE DATE: 02/24/2018 SURGEON: Jian Jauregui DPM WAREHOUSE AND RECEIVING SUPERVISOR: Sammi Ortiz DPM PGY-2, , PGY-1. ANESTHESIOLOGIST: Dr. Cotton/Dr. Hendrix. ANESTHESIA: IV sedation plus local. PREOPERATIVE DIAGNOSES: Left foot nonhealing diabetic ulcer with osteomyelitis of third and fourth metatarsal. POSTOPERATIVE DIAGNOSES: Left foot nonhealing diabetic ulcer with osteomyelitis of third and fourth metatarsal. PROCEDURE: Left foot transmetatarsal amputation. INDICATION: The patient is a 62-year-old male with the above diagnoses. The patient has exhausted all conservative treatment at this time and now requires surgical intervention. The patient signed the consent after careful explanation of risks, benefits, complications, and alternatives for surgical procedure. No guarantees were given nor implied. N.p.o. status was confirmed prior to taking the patient to the operating room. PREPARATION: The patient was brought into the operating room and placed on the operating room table in a supine position. Time-out was performed for identification of the correct patient and procedure. After induction of IV sedation, the left lower extremity was then prepped and draped in normal sterile manner and the procedure began. A total of 30 mL of 2% lidocaine plain was injected in an ankle block fashion to the left lower extremity to obtain local anesthesia. No tourniquet was utilized during the procedure. DESCRIPTION OF PROCEDURE: Attention was then directed to the distal lateral aspect of the left foot where an open wound was noted, measuring approximately 4.5 cm x 3 cm x 0.7 cm, was noted with a mixed fibrogranular wound base and active purulent drainage. It is of note that the patient had a previous fifth digit partial ray amputation and this is the site of the current open wound. At this time, a #10 blade was used to create a fish-mouth incision circumferentially around the mid foot with the plantar incision made distally to create a long plantar flap for adequate closure. This incision was carried down to the level of bone. The dorsal and plantar skin flap were then freed from the bone using sterile forceps and a sterile #15 blade. All necrotic and nonviable soft tissue was debulked from the dorsal and plantar skin flap. At this time, once all soft tissue was adequately freed from the distal aspect of the first and fourth metatarsal, periosteum freed using a Lee elevator from all metatarsal head and neck. A sagittal saw was then used to resect the first metatarsal at the level of the mid shaft, angling the blade from dorsal medial to plantar lateral. All devitalized bone and tissue was then passed off the field and sent for pathology. This step was then repeated for metatarsals 2 through 4. It is of note that metatarsals 3 and 4 exhibited significant bone disease with several aspect of the metatarsal head and neck showing clinical signs of osteomyelitis and cortical bone erosion. Both the third and fourth metatarsals were shown to crack instantly upon introduction of the sagittal saw to the dorsal aspect of the bone. An appropriate metatarsal parabola was formed at this time to create a functional transmetatarsal amputation site. All bone removed from the metatarsals was sent off the field to pathology. At this time, a rongeur was used to excise a 0.5 cm portion of the remaining fifth metatarsal. The site was then irrigated with copious amounts of saline solution using a bulb syringe and bacitracin-infused saline. The plantar tissue was then brought up dorsally to cover the distal aspects of the metatarsal head. A 3-0 Vicryl suture was utilized to approximate the deep tissues of the surgical site. A 2-0 nylon and 3-0 nylon sutures were placed in a retention suture fashion as well as a simple suture fashion to reapproximate the skin and with the transmetatarsal amputation flap. The site was then dressed with Xeroform, 4 x 4 gauze, abdominal pads and a dry sterile dressing with a light Aaron bandage. POSTOPERATIVE CONDITION: The patient tolerated the anesthesia and procedure well, and was escorted to the Recovery Room with vital signs stable and neurovascular status intact to the left lower extremity. The patient is to remain nonweightbearing to the left lower extremity at this time. A posterior splint was applied in the post anesthesia care unit and the patient is to keep the splint clean, dry and intact. Patient will be evaluated by physical therapy for non-weightbearing status and will remain in the hospital. Podiatry will continue to follow the patient. Patient is to follow up with Dr. Jauregui in [place] in his office within one week of hospital discharge. Sammi Ortiz DPM Jian Jauregui DPM [facility] # [id number]
--- NOTE | 2018-03-02 08:41 | PN ---
DATE: 03/01/2018 SUBJECTIVE: Patient is in bed, in no acute distress, nontoxic. No fevers and chills. Patient was seen early this morning. PHYSICAL EXAMINATION: VITAL SIGNS: Temperature is 98, blood pressure is 130/70, respiratory rate 20, heart rate . HEENT: Unremarkable. NECK: Supple. LUNGS: Decreased breath sounds. HEART: Normal S1 and S2. ABDOMEN: Soft, nontender. LABORATORY DATA: Reveals a white count of 9.2, hemoglobin of 8. Chemistries reveal BUN of 12, creatinine of 1.1. Microbiology reveals pansensitive Staph aureus from the left foot culture. Review of orders reveals the patient to be on Ancef. ASSESSMENT AND PLAN: infection with sepsis secondary to left foot skin and skin structure infection, and third and fourth metatarsal osteomyelitis, status post transmetatarsal amputation, postprocedure day #4, with extensive Staphylococcus aureus and with a history of methicillin-resistant Staphylococcus aureus that is treated with Zyvox, diabetes mellitus and peripheral vascular disease, currently on cefazolin for the sensitive Staphylococcus aureus from the wound culture. Dada Dorsey MD
[2018-03-02 08:59] LABS: BASO # 0.03 K/mm3 (0.0-2.0); BASO % 0.3 % (0.0-3.0); EOS # 0.2 (0.0-0.7); EOS % 2.1 % (1.5-5.0); GRAN # 6.71 (1.4-6.5); GRAN % 67.3 % (50.0-68.0); HEMOGLOBIN 8.9 g/dL (14.0-18.0); LYMPH # 2.6 (1.2-3.4); LYMPH % 26.2 % (22.0-35.0); MEAN CELL VOLUME 90.1 fl (80.0-105.0); MEAN CORPUSCULAR HEMOGLOBIN 30.4 pg (25.0-35.0); MEAN CORPUSCULAR HGB CONC 33.7 g/dl (31.0-37.0); MEAN PLATELET VOLUME 8.1 fl (7.0-11.0); MONO # 0.4 (0.1-0.6); MONO % 4.1 % (1.0-6.0); RBC 2.93 10^6/uL (3.5-6.1); RED CELL DISTRIBUTION WIDTH 13.9 % (11.5-14.5)
[2018-03-02] MEDS: Insulin Regular 1 UNITS/0.01 ML ML SC SCH ×4 (09:07→22:08)
[2018-03-02 09:21] LABS: ALB/GLOB RATIO 0.9 (1.1-1.8); ALBUMIN 3.6 g/dL (3.0-4.8); ALT/SGPT 21 U/L (7-56); AST/SGOT 30 U/L (17-59); BLOOD UREA NITROGEN 15 mg/dL (7-21); CALCIUM 8.8 mg/dL (8.4-10.5); GFR AFRICAN-AMERICAN > 60; GFR NON-AFRICAN AMERICAN > 60
--- NOTE | 2018-03-02 10:33 | CP.PCM.PN ---
Subjective - Date & Time of Evaluation Date of Evaluation: 03/02/18 Time of Evaluation: 10:31 - Subjective Subjective: Podiatry Progress Note- Dr. Jauregui 62 y/o male seen at bedside this morning 6 days s/p left transmetatarsal amputation. Patient is seen resting comfortably in bed. Patient is NAD, AAOX3. Denies any events overnight. Patient reports that he has no pain to the left lower extremity. Denies of calf pain or tenderness. Reports has been non weight bearing with the walker/crutches. Denies F/C/N/V/CP/SOB. No new pedal complaints. Objective - Vital Signs/Intake and Output Vital Signs (last 24 hours): Temp Pulse Resp BP Pulse Ox 98.2 F 57 L 20 155/82 H 95 03/02/18 06:00 03/02/18 06:00 03/02/18 06:00 03/02/18 06:00 03/02/18 06:00 Intake and Output: 03/02/18 03/02/18 06:59 18:59 Intake Total 660 Output Total 600 Balance 60 - Medications Medications: Current Medications Acetaminophen (Tylenol 325mg Tab) 650 mg PO Q6H PRN PRN Reason: Other Last Admin: 02/26/18 21:38 Dose: 650 mg Amlodipine Besylate (Norvasc) 10 mg PO DAILY [facility] Last Admin: 03/01/18 10:42 Dose: 10 mg Aspirin (Ecotrin) 81 mg PO DAILY [facility] Last Admin: 03/01/18 10:41 Dose: 81 mg Atorvastatin Calcium (Lipitor) 80 mg PO DIN [facility] Last Admin: 03/01/18 17:26 Dose: 80 mg Benzocaine/Menthol (Cepacol Sore Throat) 1 allie MT Q2H PRN PRN Reason: Sore Throat Last Admin: 02/24/18 15:37 Dose: 1 allie Dextrose (Dextrose 50% Inj) 0 ml IV STAT PRN; Protocol PRN Reason: Hypoglycemia Protocol Enoxaparin Sodium (Lovenox) 40 mg SC DAILY [facility] PRN Reason: Protocol Last Admin: 02/24/18 15:45 Dose: Not Given Dextrose (Dextrose 5% In Water 1000 Ml) 1,000 mls @ 0 mls/hr IV .Q0M PRN; Protocol; Per Protocol PRN Reason: Hypoglycemia Protocol Cefazolin Sodium 2 gm/ Sodium (Chloride) 100 mls @ 200 mls/hr IVPB Q8 [facility] PRN Reason: Protocol Last Admin: 03/02/18 06:01 Dose: 200 mls/hr Insulin Detemir (Levemir) 10 unit SC HS [facility] Last Admin: 03/01/18 22:28 Dose: 10 units Insulin Human Regular (Humulin R) 0 units SC ACHS [facility] PRN Reason: Protocol Last Admin: 03/02/18 09:07 Dose: Not Given Lisinopril (Zestril) 20 mg PO DAILY [facility] Last Admin: 03/01/18 10:42 Dose: 20 mg Ondansetron HCl (Zofran Inj) 4 mg IVP ONCE PRN PRN Reason: Nausea/Vomiting Vitamin D (Vitamin D 400 Intl Units Tab) 600 intlu PO DAILY [facility] Last Admin: 03/01/18 10:41 Dose: 600 intlu - Labs Labs: 03/02/18 08:45 03/02/18 08:45 PT 13.7 SECONDS (9.4-12.5) H 02/22/18 15:30 INR 1.20 (0.93-1.08) H 02/22/18 15:30 APTT 28.4 Seconds (25.1-36.5) 02/22/18 15:30 - Constitutional Appears: Well, Non-toxic, No Acute Distress - Extremities Exam Extremities Exam: absent: Calf Tenderness Additional comments: Dressing with no strikethrough noted to outer bandage. Inner bandage with mild sangious drainage noted. LLE focused exam: Vasc: DP pulse 1/4, PT pulse non palpable. Temperature gradient warm to warm. Capillary fill time good to TMA flap. Mild edema noted to the surgical site Neuro: Protective sensation grossly intact Derm: Transmetatarsal amputation surgical site noted with sutures intact, skin edges well coapted with no dehiscence noted at this time. Centrally at TMA is fibrous tissue. Mild active sanguinous drainage noted from surgical site with application of pressure. No malodor, no tunneling or undermining, no fluctuance or bogginess, no purulence noted. No clinical signs of infection Ortho: Mild tenderness to palpation of surgical TMA site - Neurological Exam Neurological Exam: Alert, Awake, Oriented x3 - Psychiatric Exam Psychiatric exam: Normal Affect, Normal Mood Assessment and Plan - Assessment and Plan (Free Text) Assessment: 62 y/o male 6 days s/p left transmetarsal amputation secondary to diabetic foot ulcer with osteomyelitis- surgical site stable Plan: Pt seen and evaluated at bedside Discussed with attending Dr. Jauregui WBC=10.0 afebrile Wound site cleaned with saline and dressed with betadine soaked Adaptic ABD DSD and kerlix Surgical site stable with no signs of infection Posterior splint reapplied to LLE Pt advised to be NWB at this time with use of crutches/other assistive device Weight bearing status: NWB to the left lower extremity with crutches/other assistive device C/w physical therapy Wound Culture left foot- S. Aureus Continue IV abx per ID Will continue to follow while in house Patient is stable per podiatry for discharge Upon discharge, patient to follow up with Dr. Jauregui within 1 week without fail Patient to continue to NWB in posterior splint and crutches/walker Patient to keep dressing on clean, dry, and intact until office visit with Dr. Jauregui where he will be re-evaluated with dressing change Educated patient on the important of NWB and keeping dressing c/d/i Do not get wet Educated patient on the signs/symptoms of infection and advised to seek help immediately if present. Patient reports understanding all instructions and education
[2018-03-02] MEDS: Cholecalciferol 400 Intl Units Tab PO SCH (13:11)
--- NOTE | 2018-03-02 15:53 | CP.PCM.PN ---
Subjective - Date & Time of Evaluation Date of Evaluation: 03/02/18 Time of Evaluation: 11:25 - Subjective Subjective: Comfortable, no fevers, not in distress. Improving pain in the left leg. Objective - Vital Signs/Intake and Output Vital Signs (last 24 hours): Temp Pulse Resp BP Pulse Ox 98.2 F 57 L 20 151/74 H 95 03/02/18 06:00 03/02/18 06:00 03/02/18 06:00 03/02/18 11:25 03/02/18 06:00 Intake and Output: 03/02/18 03/02/18 06:59 18:59 Intake Total 660 Output Total 600 Balance 60 - Medications Medications: Current Medications Acetaminophen (Tylenol 325mg Tab) 650 mg PO Q6H PRN PRN Reason: Other Last Admin: 02/26/18 21:38 Dose: 650 mg Amlodipine Besylate (Norvasc) 10 mg PO DAILY [facility] Last Admin: 03/02/18 11:25 Dose: 10 mg Aspirin (Ecotrin) 81 mg PO DAILY [facility] Last Admin: 03/02/18 13:08 Dose: 81 mg Atorvastatin Calcium (Lipitor) 80 mg PO DIN [facility] Last Admin: 03/01/18 17:26 Dose: 80 mg Benzocaine/Menthol (Cepacol Sore Throat) 1 allie MT Q2H PRN PRN Reason: Sore Throat Last Admin: 02/24/18 15:37 Dose: 1 allie Dextrose (Dextrose 50% Inj) 0 ml IV STAT PRN; Protocol PRN Reason: Hypoglycemia Protocol Enoxaparin Sodium (Lovenox) 40 mg SC DAILY [facility] PRN Reason: Protocol Last Admin: 02/24/18 15:45 Dose: Not Given Dextrose (Dextrose 5% In Water 1000 Ml) 1,000 mls @ 0 mls/hr IV .Q0M PRN; Protocol; Per Protocol PRN Reason: Hypoglycemia Protocol Cefazolin Sodium 2 gm/ Sodium (Chloride) 100 mls @ 200 mls/hr IVPB Q8 [facility] PRN Reason: Protocol Last Admin: 03/02/18 13:11 Dose: 200 mls/hr Insulin Detemir (Levemir) 10 unit SC HS [facility] Last Admin: 03/01/18 22:28 Dose: 10 units Insulin Human Regular (Humulin R) 0 units SC ACHS [facility] PRN Reason: Protocol Last Admin: 03/02/18 11:26 Dose: 1 units Lisinopril (Zestril) 20 mg PO DAILY [facility] Last Admin: 03/02/18 11:25 Dose: 20 mg Ondansetron HCl (Zofran Inj) 4 mg IVP ONCE PRN PRN Reason: Nausea/Vomiting Vitamin D (Vitamin D 400 Intl Units Tab) 600 intlu PO DAILY [facility] Last Admin: 03/02/18 13:11 Dose: 600 intlu - Labs Labs: 03/02/18 08:45 03/02/18 08:45 PT 13.7 SECONDS (9.4-12.5) H 02/22/18 15:30 INR 1.20 (0.93-1.08) H 02/22/18 15:30 APTT 28.4 Seconds (25.1-36.5) 02/22/18 15:30 - Constitutional Appears: Non-toxic, Chronically Ill - Head Exam Head Exam: NORMAL INSPECTION - Respiratory Exam Respiratory Exam: Decreased Breath Sounds - Cardiovascular Exam Cardiovascular Exam: +S1, +S2 - GI/Abdominal Exam GI & Abdominal Exam: Soft. absent: Tenderness - Extremities Exam Additional comments: left leg with dressings in place Assessment and Plan - Assessment and Plan (Free Text) Plan: Assessment sepsis due to left foot skin and skin structure infection with 3rd and 4th metatarsal osteomyelitis, S/P tranmetatarsal amputation POD #6, growing MSSA from the wound - bone margins are still positive for osteomyelitis history of left foot 5th toe osteomyelitis with skin and skin structure infection, growing MRSA in the soft tissue and MSSA in the bone S/P partial 5th ray amputation and debridement of tissue S/P treatment with 6 weeks of Zyvox DM peripheral neuropathy CAD HTN Plan continue cefazolin and will need at least 6 weeks of antibiotics with weekly ESR , CRP, CBC, CMP and outpatient follow up with Podiatry
[2018-03-02] MEDS: Insulin Detemir 100 units/ml Vial (Levemir) SC SCH (22:09)
[2018-03-03 07:01] LABS: BASO # 0.02 K/mm3 (0.0-2.0); BASO % 0.2 % (0.0-3.0); EOS # 0.2 (0.0-0.7); EOS % 2.3 % (1.5-5.0); GRAN # 6.61 (1.4-6.5); GRAN % 65.5 % (50.0-68.0); HEMOGLOBIN 8.3 g/dL (14.0-18.0); LYMPH # 2.6 (1.2-3.4); LYMPH % 26.2 % (22.0-35.0); MEAN CELL VOLUME 88.7 fl (80.0-105.0); MEAN CORPUSCULAR HEMOGLOBIN 29.3 pg (25.0-35.0); MEAN CORPUSCULAR HGB CONC 33.1 g/dl (31.0-37.0); MEAN PLATELET VOLUME 8.2 fl (7.0-11.0); MONO # 0.6 (0.1-0.6); MONO % 5.8 % (1.0-6.0); RBC 2.83 10^6/uL (3.5-6.1); RED CELL DISTRIBUTION WIDTH 13.8 % (11.5-14.5); WHITE BLOOD COUNT 10.1 10^3/ul (4.5-11.0)
[2018-03-03 07:30] LABS: ALB/GLOB RATIO 0.9 (1.1-1.8); ALBUMIN 3.5 g/dL (3.0-4.8); ALT/SGPT 23 U/L (7-56); AST/SGOT 53 U/L (17-59); BLOOD UREA NITROGEN 19 mg/dL (7-21); CALCIUM 8.6 mg/dL (8.4-10.5); GFR AFRICAN-AMERICAN > 60; GFR NON-AFRICAN AMERICAN > 60
[2018-03-03] MEDS: Insulin Regular 1 UNITS/0.01 ML ML SC SCH ×3 (07:30→22:43)
[2018-03-03] MEDS: ceFAZolin 2 GM in Sodium Chloride 0.9% 100 ML IVPB SCH ×3 (15:11→22:27)
--- NOTE | 2018-03-03 16:46 | CP.PCM.PN ---
Subjective - Date & Time of Evaluation Date of Evaluation: 03/03/18 Time of Evaluation: 12:20 - Subjective Subjective: No fevers, not in distress, less pain in the left leg. Objective - Vital Signs/Intake and Output Vital Signs (last 24 hours): Temp Pulse Resp BP Pulse Ox 98.2 F 60 20 148/81 95 03/03/18 09:31 03/03/18 09:31 03/03/18 09:31 03/03/18 09:31 03/03/18 09:31 Intake and Output: 03/03/18 03/03/18 06:59 18:59 Intake Total 760 Output Total 500 Balance 260 - Medications Medications: Current Medications Acetaminophen (Tylenol 325mg Tab) 650 mg PO Q6H PRN PRN Reason: Other Last Admin: 02/26/18 21:38 Dose: 650 mg Amlodipine Besylate (Norvasc) 10 mg PO DAILY [facility] Last Admin: 03/02/18 11:25 Dose: 10 mg Aspirin (Ecotrin) 81 mg PO DAILY [facility] Last Admin: 03/02/18 13:08 Dose: 81 mg Atorvastatin Calcium (Lipitor) 80 mg PO DIN [facility] Last Admin: 03/02/18 17:52 Dose: 80 mg Benzocaine/Menthol (Cepacol Sore Throat) 1 allie MT Q2H PRN PRN Reason: Sore Throat Last Admin: 02/24/18 15:37 Dose: 1 allie Dextrose (Dextrose 50% Inj) 0 ml IV STAT PRN; Protocol PRN Reason: Hypoglycemia Protocol Enoxaparin Sodium (Lovenox) 40 mg SC DAILY [facility] PRN Reason: Protocol Last Admin: 02/24/18 15:45 Dose: Not Given Dextrose (Dextrose 5% In Water 1000 Ml) 1,000 mls @ 0 mls/hr IV .Q0M PRN; Protocol; Per Protocol PRN Reason: Hypoglycemia Protocol Cefazolin Sodium 2 gm/ Sodium (Chloride) 100 mls @ 200 mls/hr IVPB Q8 [facility] PRN Reason: Protocol Last Admin: 03/02/18 22:08 Dose: 200 mls/hr Insulin Detemir (Levemir) 10 unit SC HS [facility] Last Admin: 03/02/18 22:09 Dose: 10 units Insulin Human Regular (Humulin R) 0 units SC ACHS [facility] PRN Reason: Protocol Last Admin: 03/02/18 22:08 Dose: Not Given Lisinopril (Zestril) 20 mg PO DAILY [facility] Last Admin: 03/02/18 11:25 Dose: 20 mg Ondansetron HCl (Zofran Inj) 4 mg IVP ONCE PRN PRN Reason: Nausea/Vomiting Vitamin D (Vitamin D 400 Intl Units Tab) 600 intlu PO DAILY [facility] Last Admin: 03/02/18 13:11 Dose: 600 intlu - Labs Labs: 03/03/18 06:30 03/03/18 06:30 PT 13.7 SECONDS (9.4-12.5) H 02/22/18 15:30 INR 1.20 (0.93-1.08) H 02/22/18 15:30 APTT 28.4 Seconds (25.1-36.5) 02/22/18 15:30 - Constitutional Appears: Non-toxic, Chronically Ill - Head Exam Head Exam: NORMAL INSPECTION - Neck Exam Neck Exam: absent: Meningismus - Respiratory Exam Respiratory Exam: Decreased Breath Sounds - Cardiovascular Exam Cardiovascular Exam: +S1, +S2 - GI/Abdominal Exam GI & Abdominal Exam: Soft. absent: Tenderness Assessment and Plan - Assessment and Plan (Free Text) Plan: Assessment sepsis due to left foot skin and skin structure infection with 3rd and 4th metatarsal osteomyelitis, S/P tranmetatarsal amputation POD #7, growing MSSA from the wound - bone margins are still positive for osteomyelitis history of left foot 5th toe osteomyelitis with skin and skin structure infection, growing MRSA in the soft tissue and MSSA in the bone S/P partial 5th ray amputation and debridement of tissue S/P treatment with 6 weeks of Zyvox DM peripheral neuropathy CAD HTN Plan continue cefazolin (may substitute Rocephin for this )and will need at least 6 weeks of antibiotics with weekly ESR, CRP, CBC, CMP and outpatient follow up with Podiatry
--- NOTE | 2018-03-03 18:19 | CP.PCM.PN ---
<Varinder Andersen - Last Filed: 03/03/18 18:03> Subjective - Date & Time of Evaluation Date of Evaluation: 03/03/18 Time of Evaluation: 06:00 - Subjective Subjective: Varinder Andersen PGY-1 Progress Note for Hospitalist Service Patient seen and examined bedside. Patient had no acute events overnight. POD # 7. Patient denies acute pain, SOB, and nausea overnight. The intermittent left medial leg pain is improved from yesterday. No other new concerns at this time. Objective - Vital Signs/Intake and Output Vital Signs (last 24 hours): Temp Pulse Resp BP Pulse Ox 97.9 F 57 L 18 147/81 100 03/03/18 14:00 03/03/18 14:00 03/03/18 14:00 03/03/18 14:00 03/03/18 14:00 Intake and Output: 03/03/18 03/03/18 06:59 18:59 Intake Total 760 1020 Output Total 500 600 Balance 260 420 - Medications Medications: Current Medications Acetaminophen (Tylenol 325mg Tab) 650 mg PO Q6H PRN PRN Reason: Other Last Admin: 02/26/18 21:38 Dose: 650 mg Amlodipine Besylate (Norvasc) 10 mg PO DAILY [facility] Last Admin: 03/03/18 11:08 Dose: 10 mg Aspirin (Ecotrin) 81 mg PO DAILY [facility] Atorvastatin Calcium (Lipitor) 80 mg PO DIN [facility] Last Admin: 03/02/18 17:52 Dose: 80 mg Benzocaine/Menthol (Cepacol Sore Throat) 1 allie MT Q2H PRN PRN Reason: Sore Throat Last Admin: 02/24/18 15:37 Dose: 1 allie Dextrose (Dextrose 50% Inj) 0 ml IV STAT PRN; Protocol PRN Reason: Hypoglycemia Protocol Enoxaparin Sodium (Lovenox) 40 mg SC DAILY [facility] PRN Reason: Protocol Last Admin: 02/24/18 15:45 Dose: Not Given Dextrose (Dextrose 5% In Water 1000 Ml) 1,000 mls @ 0 mls/hr IV .Q0M PRN; Protocol; Per Protocol PRN Reason: Hypoglycemia Protocol Cefazolin Sodium 2 gm/ Sodium (Chloride) 100 mls @ 200 mls/hr IVPB Q8 [facility] PRN Reason: Protocol Last Admin: 03/03/18 15:11 Dose: 200 mls/hr Insulin Detemir (Levemir) 10 unit SC HS [facility] Last Admin: 03/02/18 22:09 Dose: 10 units Insulin Human Regular (Humulin R) 0 units SC ACHS [facility] PRN Reason: Protocol Last Admin: 03/03/18 15:11 Dose: 1 units Lisinopril (Zestril) 20 mg PO DAILY [facility] Last Admin: 03/03/18 11:07 Dose: 20 mg Ondansetron HCl (Zofran Inj) 4 mg IVP ONCE PRN PRN Reason: Nausea/Vomiting Vitamin D (Vitamin D 400 Intl Units Tab) 600 intlu PO DAILY [facility] - Labs Labs: 03/03/18 06:30 03/03/18 06:30 PT 13.7 SECONDS (9.4-12.5) H 02/22/18 15:30 INR 1.20 (0.93-1.08) H 02/22/18 15:30 APTT 28.4 Seconds (25.1-36.5) 02/22/18 15:30 - Constitutional Appears: Well, No Acute Distress - Head Exam Head Exam: ATRAUMATIC, NORMAL INSPECTION, NORMOCEPHALIC - Eye Exam Eye Exam: EOMI, Normal appearance, PERRL Pupil Exam: NORMAL ACCOMODATION - ENT Exam ENT Exam: Mucous Membranes Moist, Normal Exam - Neck Exam Neck Exam: Normal Inspection - Respiratory Exam Respiratory Exam: Clear to Ausculation Bilateral, NORMAL BREATHING PATTERN. absent: Wheezes, Respiratory Distress - Cardiovascular Exam Cardiovascular Exam: RRR, +S1, +S2. absent: JVD - GI/Abdominal Exam GI & Abdominal Exam: Soft, Normal Bowel Sounds. absent: Tenderness - Rectal Exam Rectal Exam: NORMAL INSPECTION - Extremities Exam Additional comments: L leg wrapped below ankle. No discharge or blood noted. - Neurological Exam Neurological Exam: Alert, Awake, Oriented x3 - Psychiatric Exam Psychiatric exam: Normal Affect, Normal Mood - Skin Skin Exam: Dry, Intact, Normal Color Assessment and Plan - Assessment and Plan (Free Text) Assessment: Mr. Baez is a 62 year old M w/ PMH of DM2, PVD, CAD, HTN, Chronic neuropathy , Osteomyelitis s/p Left 5th metatarsal amputation 12/01, and s/p debridement + L anterior tibial angioplasty 12/31 admitted for chronic L anterior foot ulceration worsening x 1 week. Pt. is POD#7 S/P Transmetatarsal resection of the L foot. Osteomyelitis L 3rd + 4th digits s/p Transmetatarsal amputation POD#7 on IV ABX Patient is s/p L 5th metatarsal amputation (11/2017) and debridement + anterior tibial angioplasty (12/2017) 2/2 poor vascularization Pt. Afebrile; No leukocytosis; Operative Pathology report - Hemorrhage and granulation tissue involving 3rd and 4th digits. Inflammatory process involves soft tissue resection margin. Podiatry following Alk Phos of 130- likely 2/2 bone breakdown from surgery. ESR today elevated at 112. CRP 38.50 Per ID, continue 4-6 weeks of antibiotics (currently on cefazolin 2g IV q8 day 4 for MSSA but could transition to Rocephin) with weekly esr, crp, cbc, and cmp PICC line to be placed tomorrow 03/04 for continued IV ABx access IR following Wound care following Cont. PT gait training Hx Type 2 Diabetes Patient was encouraged to maintain his sugar levels within range Continue Levemir 10 Continue on Medium ISS Regular A1C on 02/21 was 8.5, improved from 9.4 on 01/07 Hx Hypertension Continued home Lisinopril 20 PO and amlodipine 10 PO- will continue to monitor Prophylaxis DVT/ GI - Lovenox/ Protonix Patient seen, case reviewed, and plan agreed upon with Dr. Derick Moreno. Varinder Andersen, PGY-1 <Heena Moreno - Last Filed: 03/04/18 07:48> Objective - Vital Signs/Intake and Output Vital Signs (last 24 hours): Temp Pulse Resp BP Pulse Ox 98.2 F 58 L 20 139/81 96 03/03/18 21:50 03/03/18 21:50 03/03/18 21:50 03/03/18 21:50 03/03/18 21:50 Intake and Output: 03/04/18 03/04/18 06:59 18:59 Intake Total 760 Output Total 800 Balance -40 - Medications Medications: Current Medications Acetaminophen (Tylenol 325mg Tab) 650 mg PO Q6H PRN PRN Reason: Other Last Admin: 02/26/18 21:38 Dose: 650 mg Amlodipine Besylate (Norvasc) 10 mg PO DAILY [facility] Last Admin: 03/03/18 11:08 Dose: 10 mg Aspirin (Ecotrin) 81 mg PO DAILY [facility] Atorvastatin Calcium (Lipitor) 80 mg PO DIN [facility] Last Admin: 03/02/18 17:52 Dose: 80 mg Benzocaine/Menthol (Cepacol Sore Throat) 1 allie MT Q2H PRN PRN Reason: Sore Throat Last Admin: 02/24/18 15:37 Dose: 1 allie Dextrose (Dextrose 50% Inj) 0 ml IV STAT PRN; Protocol PRN Reason: Hypoglycemia Protocol Enoxaparin Sodium (Lovenox) 40 mg SC DAILY [facility] PRN Reason: Protocol Last Admin: 02/24/18 15:45 Dose: Not Given Dextrose (Dextrose 5% In Water 1000 Ml) 1,000 mls @ 0 mls/hr IV .Q0M PRN; Protocol; Per Protocol PRN Reason: Hypoglycemia Protocol Cefazolin Sodium 2 gm/ Sodium (Chloride) 100 mls @ 200 mls/hr IVPB Q8 [facility] PRN Reason: Protocol Last Admin: 03/04/18 05:48 Dose: 200 mls/hr Insulin Detemir (Levemir) 10 unit SC HS [facility] Last Admin: 03/03/18 22:28 Dose: 10 units Insulin Human Regular (Humulin R) 0 units SC ACHS [facility] PRN Reason: Protocol Last Admin: 03/03/18 22:43 Dose: Not Given Lisinopril (Zestril) 20 mg PO DAILY [facility] Last Admin: 03/03/18 11:07 Dose: 20 mg Ondansetron HCl (Zofran Inj) 4 mg IVP ONCE PRN PRN Reason: Nausea/Vomiting Vitamin D (Vitamin D 400 Intl Units Tab) 600 intlu PO DAILY [facility] - Labs Labs: 03/04/18 06:45 03/04/18 06:45 PT 13.7 SECONDS (9.4-12.5) H 02/22/18 15:30 INR 1.20 (0.93-1.08) H 02/22/18 15:30 APTT 28.4 Seconds (25.1-36.5) 02/22/18 15:30 Attending/Attestation - Attestation I have personally seen and examined this patient.: Yes I have fully participated in the care of the patient.: Yes I have reviewed all pertinent clinical information, including history, physical exam and plan: Yes Notes (Text): 03/03/18 62 year old male with past medical history of diabetes, CAD, hypertension and osteomyelitis s/p left 5th metatarsal amputation (12/01), s/p debridement and left anterior tibial angioplasty (12/31) who presented with worsening chronic left anterior foot ulceration. He is being followed by ID and podiatry. He is s/p transmetatarsal resection of left foot POD #7. Operative pathology was reviewed as above. Continue with iv antibiotics as per ID and wound care as per podiatry. Weekly ESR/CRP. He is on insulin ss and levemir for diabetes. Offered gabapentin for neuropathy which patient declined. Continue with physical therapy. 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 He is on norvasc and lisinopril for hypertension. Anemia likely secondary to chronic anemia. Continue to monitor. Heena Moreno MD Hospitalist.
[2018-03-03 21:50] VITALS: RESP 20
[2018-03-03] MEDS: Insulin Detemir 100 units/ml Vial (Levemir) SC SCH (22:28)
[2018-03-04] MEDS: ceFAZolin 2 GM in Sodium Chloride 0.9% 100 ML IVPB SCH (05:48)
[2018-03-04 07:12] LABS: BASO # 0.03 K/mm3 (0.0-2.0); BASO % 0.3 % (0.0-3.0); EOS # 0.2 (0.0-0.7); EOS % 2.5 % (1.5-5.0); GRAN # 5.51 (1.4-6.5); GRAN % 62.7 % (50.0-68.0); HEMOGLOBIN 8.8 g/dL (14.0-18.0); LYMPH # 2.6 (1.2-3.4); LYMPH % 29.4 % (22.0-35.0); MEAN CELL VOLUME 89.5 fl (80.0-105.0); MEAN CORPUSCULAR HEMOGLOBIN 29.7 pg (25.0-35.0); MEAN CORPUSCULAR HGB CONC 33.2 g/dl (31.0-37.0); MEAN PLATELET VOLUME 8.2 fl (7.0-11.0); MONO # 0.5 (0.1-0.6); MONO % 5.1 % (1.0-6.0); RBC 2.96 10^6/uL (3.5-6.1); RED CELL DISTRIBUTION WIDTH 14.1 % (11.5-14.5); WHITE BLOOD COUNT 8.8 10^3/ul (4.5-11.0)
[2018-03-04 07:26] LABS: ALB/GLOB RATIO 0.9 (1.1-1.8); ALBUMIN 3.5 g/dL (3.0-4.8); ALT/SGPT 16 U/L (7-56); AST/SGOT 26 U/L (17-59); BLOOD UREA NITROGEN 20 mg/dL (7-21); CALCIUM 8.9 mg/dL (8.4-10.5); GFR AFRICAN-AMERICAN > 60; GFR NON-AFRICAN AMERICAN > 60
--- NOTE | 2018-03-04 07:43 | CP.PCM.PN ---
Subjective - Date & Time of Evaluation Date of Evaluation: 03/04/18 Time of Evaluation: 06:00 - Subjective Subjective: Varinder Andersen, PGY-1 Progress Note for Hospitalist Service Patient seen and evaluated at bedside. Reports no acute complaints overnight. Denies CP, palpitations, SOB, leg pain. Blurry vision improved. Left lower leg wrapped. Objective - Vital Signs/Intake and Output Vital Signs (last 24 hours): Temp Pulse Resp BP Pulse Ox 98.2 F 58 L 20 139/81 96 03/03/18 21:50 03/03/18 21:50 03/03/18 21:50 03/03/18 21:50 03/03/18 21:50 Intake and Output: 03/04/18 03/04/18 06:59 18:59 Intake Total 760 Output Total 800 Balance -40 - Medications Medications: Current Medications Acetaminophen (Tylenol 325mg Tab) 650 mg PO Q6H PRN PRN Reason: Other Last Admin: 02/26/18 21:38 Dose: 650 mg Amlodipine Besylate (Norvasc) 10 mg PO DAILY [facility] Last Admin: 03/03/18 11:08 Dose: 10 mg Aspirin (Ecotrin) 81 mg PO DAILY [facility] Atorvastatin Calcium (Lipitor) 80 mg PO DIN [facility] Last Admin: 03/02/18 17:52 Dose: 80 mg Benzocaine/Menthol (Cepacol Sore Throat) 1 allie MT Q2H PRN PRN Reason: Sore Throat Last Admin: 02/24/18 15:37 Dose: 1 allie Dextrose (Dextrose 50% Inj) 0 ml IV STAT PRN; Protocol PRN Reason: Hypoglycemia Protocol Enoxaparin Sodium (Lovenox) 40 mg SC DAILY [facility] PRN Reason: Protocol Last Admin: 02/24/18 15:45 Dose: Not Given Dextrose (Dextrose 5% In Water 1000 Ml) 1,000 mls @ 0 mls/hr IV .Q0M PRN; Protocol; Per Protocol PRN Reason: Hypoglycemia Protocol Cefazolin Sodium 2 gm/ Sodium (Chloride) 100 mls @ 200 mls/hr IVPB Q8 [facility] PRN Reason: Protocol Last Admin: 03/04/18 05:48 Dose: 200 mls/hr Insulin Detemir (Levemir) 10 unit SC [facility] Last Admin: 03/03/18 22:28 Dose: 10 units Insulin Human Regular (Humulin R) 0 units SC ACHS [facility] PRN Reason: Protocol Last Admin: 03/03/18 22:43 Dose: Not Given Lisinopril (Zestril) 20 mg PO DAILY [facility] Last Admin: 03/03/18 11:07 Dose: 20 mg Ondansetron HCl (Zofran Inj) 4 mg IVP ONCE PRN PRN Reason: Nausea/Vomiting Vitamin D (Vitamin D 400 Intl Units Tab) 600 intlu PO DAILY [facility] - Labs Labs: 03/04/18 06:45 03/04/18 06:45 PT 13.7 SECONDS (9.4-12.5) H 02/22/18 15:30 INR 1.20 (0.93-1.08) H 02/22/18 15:30 APTT 28.4 Seconds (25.1-36.5) 02/22/18 15:30 - Constitutional Appears: Well, No Acute Distress - Head Exam Head Exam: ATRAUMATIC, NORMAL INSPECTION, NORMOCEPHALIC - Eye Exam Eye Exam: EOMI, Normal appearance Pupil Exam: NORMAL ACCOMODATION - ENT Exam ENT Exam: Mucous Membranes Moist, Normal Exam - Neck Exam Neck Exam: Normal Inspection - Respiratory Exam Respiratory Exam: Clear to Ausculation Bilateral, NORMAL BREATHING PATTERN. absent: Rales, Rhonchi, Wheezes - Cardiovascular Exam Cardiovascular Exam: REGULAR RHYTHM, +S1, +S2 - GI/Abdominal Exam GI & Abdominal Exam: Soft, Normal Bowel Sounds. absent: Firm, Tenderness - Extremities Exam Extremities Exam: absent: Tenderness Additional comments: Left foot wrapped - no linda blood or discharge seen through wrapping. - Neurological Exam Neurological Exam: Alert, Oriented x3 - Psychiatric Exam Psychiatric exam: Normal Affect, Normal Mood - Skin Skin Exam: Dry, Normal Color, Warm Assessment and Plan - Assessment and Plan (Free Text) Assessment: Mr. Baez is a 62 year old M w/ PMH of DM2, PVD, CAD, HTN, Chronic neuropathy , Osteomyelitis s/p Left 5th metatarsal amputation 12/01, and s/p debridement + L anterior tibial angioplasty 12/31 admitted for chronic L anterior foot ulceration worsening x 1 week. Pt. is POD#7 S/P Transmetatarsal resection of the L foot. Osteomyelitis L 3rd + 4th digits s/p Transmetatarsal amputation POD#8 on IV ABX Patient is s/p L 5th metatarsal amputation (11/2017) and debridement + anterior tibial angioplasty (12/2017) 2/2 poor vascularization Pt. Afebrile; No leukocytosis; Operative Pathology report - Hemorrhage and granulation tissue involving 3rd and 4th digits. Inflammatory process involves soft tissue resection margin. Podiatry following Alk Phos of 130- likely 2/2 bone breakdown from surgery. ESR today elevated at 112. CRP 38.50 Per ID, continue 4-6 weeks of antibiotics (currently on cefazolin 2g IV q8 day 5 for MSSA but could transition to Rocephin) with weekly esr, crp, cbc, and cmp PICC line for continued IV ABx access IR following Wound care following Cont. PT gait training Hx Type 2 Diabetes Patient was encouraged to maintain his sugar levels within range Continue Levemir 10 Continue on Medium ISS Regular A1C on 02/21 was 8.5, improved from 9.4 on 01/07 Hx Hypertension Continued home Lisinopril 20 PO and amlodipine 10 PO- will continue to monitor Prophylaxis DVT/ GI - Lovenox/ Protonix Patient seen, case reviewed, and plan agreed upon with Dr. Derick Moreno. Varinder Andersen, PGY-1
[2018-03-04] MEDS: Insulin Regular 1 UNITS/0.01 ML ML SC SCH ×3 (08:11→16:19)
[2018-03-04] MEDS ORDERED: Cholecalciferol 400 Intl Units Tab PO SCH (10:00)
[2018-03-04] MEDS ORDERED: cefTRIAXone 1 gm 1 GM/100 ML BAG IVPB SCH (11:30)
[2018-03-04 14:38] VITALS: BP 122/69; PULSE 53; TEMP 97.7; O2SAT 99
--- NOTE | 2018-03-04 14:52 | RAD ---
Date of service: 03/04/2018 HISTORY: picc line placement COMPARISON: 02/22/2018 FINDINGS: LUNGS: No active pulmonary disease. There is a right-sided PICC line in satisfactory position in the SVC just above the right atrium right atrium PLEURA: No significant pleural effusion identified, no pneumothorax apparent. CARDIOVASCULAR: Normal. OSSEOUS STRUCTURES: No significant abnormalities. VISUALIZED UPPER ABDOMEN: Normal. OTHER FINDINGS: None. IMPRESSION: There is a right-sided PICC line in satisfactory position in the SVC just above the right atrium right atrium
--- NOTE | 2018-03-04 15:25 | CP.PCM.PN ---
Subjective - Date & Time of Evaluation Date of Evaluation: 03/04/18 Time of Evaluation: 15:20 - Subjective Subjective: Podiatry Progress Note- Dr. Jauregui 62 y/o male seen at bedside this morning 8 days s/p left transmetatarsal amputation. Patient is seen resting comfortably in bed, in NAD, AAOX3. Patient just got PICC line insertion. Denies any events overnight. Patient reports that he has no pain to the left lower extremity. Denies of calf pain or tenderness. Reports has been non weight bearing with the walker or crutches. Denies F/C/N/V/ CP/SOB. No new pedal complaints. Objective - Vital Signs/Intake and Output Vital Signs (last 24 hours): Temp Pulse Resp BP Pulse Ox 97.7 F 53 L 20 122/69 99 03/04/18 14:00 03/04/18 14:00 03/04/18 14:00 03/04/18 14:00 03/04/18 14:00 Intake and Output: 03/04/18 03/04/18 06:59 18:59 Intake Total 760 840 Output Total 800 Balance -40 840 - Medications Medications: Current Medications Acetaminophen (Tylenol 325mg Tab) 650 mg PO Q6H PRN PRN Reason: Other Last Admin: 02/26/18 21:38 Dose: 650 mg Amlodipine Besylate (Norvasc) 10 mg PO DAILY [facility] Last Admin: 03/04/18 10:13 Dose: 10 mg Aspirin (Ecotrin) 81 mg PO DAILY [facility] Last Admin: 03/04/18 10:13 Dose: 81 mg Atorvastatin Calcium (Lipitor) 80 mg PO DIN [facility] Last Admin: 03/02/18 17:52 Dose: 80 mg Benzocaine/Menthol (Cepacol Sore Throat) 1 allie MT Q2H PRN PRN Reason: Sore Throat Last Admin: 02/24/18 15:37 Dose: 1 allie Dextrose (Dextrose 50% Inj) 0 ml IV STAT PRN; Protocol PRN Reason: Hypoglycemia Protocol Enoxaparin Sodium (Lovenox) 40 mg SC DAILY [facility] PRN Reason: Protocol Last Admin: 02/24/18 15:45 Dose: Not Given Dextrose (Dextrose 5% In Water 1000 Ml) 1,000 mls @ 0 mls/hr IV .Q0M PRN; Protocol; Per Protocol PRN Reason: Hypoglycemia Protocol Ceftriaxone Sodium (Rocephin 1 Gram Ivpb) 1 gm in 100 mls @ 100 mls/hr IVPB DAILY [facility] PRN Reason: Protocol Insulin Detemir (Levemir) 10 unit SC HS [facility] Last Admin: 03/03/18 22:28 Dose: 10 units Insulin Human Regular (Humulin R) 0 units SC ACHS [facility] PRN Reason: Protocol Last Admin: 03/04/18 11:46 Dose: Not Given Lisinopril (Zestril) 20 mg PO DAILY [facility] Last Admin: 03/04/18 10:13 Dose: 20 mg Ondansetron HCl (Zofran Inj) 4 mg IVP ONCE PRN PRN Reason: Nausea/Vomiting Vitamin D (Vitamin D 400 Intl Units Tab) 600 intlu PO DAILY [facility] Last Admin: 03/04/18 10:13 Dose: 600 intlu - Labs Labs: 03/04/18 06:45 03/04/18 06:45 PT 13.7 SECONDS (9.4-12.5) H 02/22/18 15:30 INR 1.20 (0.93-1.08) H 02/22/18 15:30 APTT 28.4 Seconds (25.1-36.5) 02/22/18 15:30 - Constitutional Appears: Well, Non-toxic, No Acute Distress - Extremities Exam Extremities Exam: absent: Calf Tenderness Additional comments: Dressing with no strikethrough noted to outer bandage. Inner bandage with mild sangious drainage noted. LLE focused exam: Vasc: DP pulse 1/4, PT pulse non palpable. Temperature gradient warm to warm. Capillary fill time good to TMA flap. Mild edema noted to the surgical site Neuro: Protective sensation grossly intact Derm: Transmetatarsal amputation surgical site noted with sutures intact, skin edges well coapted. Centrally at TMA is fibrous tissue with minimal central dehiscence noted at this time. No sanguinous drainage noted from surgical site with application of pressure. No malodor, no tunneling or undermining, no fluctuance or bogginess, no purulence noted. No clinical signs of infection Ortho: Mild tenderness to palpation of surgical TMA site - Neurological Exam Neurological Exam: Alert, Awake, Oriented x3 - Psychiatric Exam Psychiatric exam: Normal Affect, Normal Mood Assessment and Plan - Assessment and Plan (Free Text) Assessment: 62 y/o male 8 days s/p left transmetarsal amputation secondary to diabetic foot ulcer with osteomyelitis- surgical site stable Plan: Pt seen and evaluated at bedside Discussed with attending Dr. Jauregui WBC=8.8 afebrile Wound site cleaned with saline and dressed with betadine soaked Adaptic ABD DSD and kerlix Surgical site stable with no signs of infection Posterior splint reapplied to LLE Pt advised to be NWB at this time with use of crutches/other assistive device Weight bearing status: NWB to the left lower extremity with crutches/other assistive device C/w physical therapy Wound Culture left foot- S. Aureus Continue IV abx per ID Will continue to follow while in house Patient is stable per podiatry for discharge Upon discharge, patient to follow up with Dr. Jauregui within 1 week without fail Patient to continue to NWB in posterior splint and crutches/walker Patient to keep dressing on clean, dry, and intact until office visit with Dr. Jauregui where he will be re-evaluated with dressing change Educated patient on the important of NWB and keeping dressing c/d/i Do not get wet Educated patient on the signs/symptoms of infection and advised to seek help immediately if present. Patient reports understanding all instructions and education
--- NOTE | 2018-03-04 15:32 | CP.PCM.PN ---
Subjective - Date & Time of Evaluation Date of Evaluation: 03/04/18 Time of Evaluation: 13:00 - Subjective Subjective: No fevers, not in distress. Objective - Vital Signs/Intake and Output Vital Signs (last 24 hours): Temp Pulse Resp BP Pulse Ox 98 F 55 L 20 130/70 94 L 03/04/18 06:00 03/04/18 06:00 03/04/18 06:00 03/04/18 10:13 03/04/18 06:00 Intake and Output: 03/04/18 03/04/18 06:59 18:59 Intake Total 760 Output Total 800 Balance -40 - Medications Medications: Current Medications Acetaminophen (Tylenol 325mg Tab) 650 mg PO Q6H PRN PRN Reason: Other Last Admin: 02/26/18 21:38 Dose: 650 mg Amlodipine Besylate (Norvasc) 10 mg PO DAILY [facility] Last Admin: 03/04/18 10:13 Dose: 10 mg Aspirin (Ecotrin) 81 mg PO DAILY [facility] Last Admin: 03/04/18 10:13 Dose: 81 mg Atorvastatin Calcium (Lipitor) 80 mg PO DIN [facility] Last Admin: 03/02/18 17:52 Dose: 80 mg Benzocaine/Menthol (Cepacol Sore Throat) 1 allie MT Q2H PRN PRN Reason: Sore Throat Last Admin: 02/24/18 15:37 Dose: 1 allie Dextrose (Dextrose 50% Inj) 0 ml IV STAT PRN; Protocol PRN Reason: Hypoglycemia Protocol Enoxaparin Sodium (Lovenox) 40 mg SC DAILY [facility] PRN Reason: Protocol Last Admin: 02/24/18 15:45 Dose: Not Given Dextrose (Dextrose 5% In Water 1000 Ml) 1,000 mls @ 0 mls/hr IV .Q0M PRN; Protocol; Per Protocol PRN Reason: Hypoglycemia Protocol Cefazolin Sodium 2 gm/ Sodium (Chloride) 100 mls @ 200 mls/hr IVPB Q8 [facility] PRN Reason: Protocol Last Admin: 03/04/18 05:48 Dose: 200 mls/hr Insulin Detemir (Levemir) 10 unit SC HS [facility] Last Admin: 03/03/18 22:28 Dose: 10 units Insulin Human Regular (Humulin R) 0 units SC ACHS [facility] PRN Reason: Protocol Last Admin: 03/04/18 08:11 Dose: Not Given Lisinopril (Zestril) 20 mg PO DAILY [facility] Last Admin: 03/04/18 10:13 Dose: 20 mg Ondansetron HCl (Zofran Inj) 4 mg IVP ONCE PRN PRN Reason: Nausea/Vomiting Vitamin D (Vitamin D 400 Intl Units Tab) 600 intlu PO DAILY [facility] Last Admin: 03/04/18 10:13 Dose: 600 intlu - Labs Labs: 03/04/18 06:45 03/04/18 06:45 PT 13.7 SECONDS (9.4-12.5) H 02/22/18 15:30 INR 1.20 (0.93-1.08) H 02/22/18 15:30 APTT 28.4 Seconds (25.1-36.5) 02/22/18 15:30 - Constitutional Appears: Chronically Ill - Head Exam Head Exam: NORMAL INSPECTION - Neck Exam Neck Exam: absent: Meningismus - Respiratory Exam Respiratory Exam: Decreased Breath Sounds - Cardiovascular Exam Cardiovascular Exam: +S1, +S2 - GI/Abdominal Exam GI & Abdominal Exam: Soft. absent: Tenderness - Extremities Exam Additional comments: left leg with dressings and bandages in place Assessment and Plan - Assessment and Plan (Free Text) Plan: Assessment sepsis due to left foot skin and skin structure infection with 3rd and 4th metatarsal osteomyelitis, S/P tranmetatarsal amputation POD #8, growing MSSA from the wound - bone margins are still positive for osteomyelitis history of left foot 5th toe osteomyelitis with skin and skin structure infection, growing MRSA in the soft tissue and MSSA in the bone S/P partial 5th ray amputation and debridement of tissue S/P treatment with 6 weeks of Zyvox DM peripheral neuropathy CAD HTN Plan continue cefazolin (may substitute Rocephin for this) and will need at least 6 weeks of antibiotics with weekly ESR, CRP, CBC, CMP and outpatient follow up with Podiatry
--- NOTE | 2018-03-04 15:41 | CP.PCM.DIS ---
<Varinder Andersen - Last Filed: 03/04/18 15:33> Provider - Provider Date of Admission: 02/22/18 16:46 Attending physician: Heena Moreno MD Consults: ID, Podiatry Time Spent in preparation of Discharge (in minutes): 45 Diagnosis - Discharge Diagnosis (1) Amputated toe of left foot Status: Acute Priority: High (2) Anemia Status: Chronic (3) Osteomyelitis Status: Acute (4) PVD (peripheral vascular disease) Status: Chronic (5) Bradycardia Status: Chronic Priority: Medium (6) Diabetes mellitus, insulin dependent (IDDM), uncontrolled Status: Chronic Priority: High (7) HTN (hypertension) Status: Chronic Priority: High Hospital Course - Lab Results Lab Results: Micro Results 02/22/18 18:00 Foot - Left Gram Stain - Final 02/22/18 18:00 Foot - Left Wound Culture - Final Staphylococcus Aureus Most Recent Lab Values WBC 8.8 10^3/ul (4.5-11.0) 03/04/18 06:45 RBC 2.96 10^6/uL (3.5-6.1) L 03/04/18 06:45 Hgb 8.8 g/dL (14.0-18.0) L 03/04/18 06:45 Hct 26.5 % (42.0-52.0) L 03/04/18 06:45 MCV 89.5 fl (80.0-105.0) 03/04/18 06:45 MCH 29.7 pg (25.0-35.0) 03/04/18 06:45 MCHC 33.2 g/dl (31.0-37.0) 03/04/18 06:45 RDW 14.1 % (11.5-14.5) 03/04/18 06:45 Plt Count 387 10^3/uL (120.0-450.0) 03/04/18 06:45 MPV 8.2 fl (7.0-11.0) 03/04/18 06:45 Gran % 62.7 % (50.0-68.0) 03/04/18 06:45 Lymph % (Auto) 29.4 % (22.0-35.0) 03/04/18 06:45 Hoke % (Auto) 5.1 % (1.0-6.0) 03/04/18 06:45 Eos % (Auto) 2.5 % (1.5-5.0) 03/04/18 06:45 Baso % (Auto) 0.3 % (0.0-3.0) 03/04/18 06:45 Gran # 5.51 (1.4-6.5) 03/04/18 06:45 Lymph # (Auto) 2.6 (1.2-3.4) 03/04/18 06:45 Hoke # (Auto) 0.5 (0.1-0.6) 03/04/18 06:45 Eos # (Auto) 0.2 (0.0-0.7) 03/04/18 06:45 Baso # (Auto) 0.03 K/mm3 (0.0-2.0) 03/04/18 06:45 ESR 112 mm/hr (0.00-15.0) H 03/03/18 06:30 Retic Count 1.45 % (0.5-1.5) 02/23/18 06:40 PT 13.7 SECONDS (9.4-12.5) H 02/22/18 15:30 INR 1.20 (0.93-1.08) H 02/22/18 15:30 APTT 28.4 Seconds (25.1-36.5) 02/22/18 15:30 pO2 53 mm/Hg (30-55) 02/22/18 16:48 VBG pH 7.39 (7.32-7.43) 02/22/18 16:48 VBG pCO2 48.0 (40-60) 02/22/18 16:48 VBG HCO3 29.1 mmol/l (21-28) H 02/22/18 16:48 VBG Total CO2 30.6 mmol.L (22-28) H 02/22/18 16:48 VBG O2 Sat (Calc) 89.2 % (40-65) H 02/22/18 16:48 VBG Base Excess 3.3 mmol/L (0.0-2.0) H 02/22/18 16:48 VBG Potassium 4.0 mmol/L (3.6-5.2) 02/22/18 16:48 Sodium 136.0 mmol/L (132-148) 02/22/18 16:48 Chloride 104.0 mmol/L (98-107) 02/22/18 16:48 Glucose 191 mg/dl (75-110) H 02/22/18 16:48 Lactate 1.2 mmol/L (0.7-2.1) 02/22/18 16:48 FiO2 21.0 % 02/22/18 16:48 Sodium 143 mmol/L (132-148) 03/04/18 06:45 Potassium 4.5 mmol/L (3.6-5.0) 03/04/18 06:45 Chloride 104 mmol/L (98-107) 03/04/18 06:45 Carbon Dioxide 27 mmol/L (21-33) 03/04/18 06:45 Anion Gap 16 (10-20) 03/04/18 06:45 BUN 20 mg/dL (7-21) 03/04/18 06:45 Creatinine 1.1 mg/dl (0.8-1.5) 03/04/18 06:45 Est GFR ( Amer) > 60 03/04/18 06:45 Est GFR (Non-Af Amer) > 60 03/04/18 06:45 POC Glucose (mg/dL) 145 mg/dL (65-110) H 03/04/18 11:39 Random Glucose 94 mg/dL (70-110) 03/04/18 06:45 Calcium 8.9 mg/dL (8.4-10.5) 03/04/18 06:45 Iron 29 ug/dL (45-180) L 02/23/18 06:40 TIBC 176 ug/dL (261-462) L 02/23/18 06:40 % Saturation 17 % (20-55) L 02/23/18 06:40 Ferritin 431.0 ng/mL 02/22/18 19:20 Total Bilirubin 0.2 mg/dL (0.2-1.3) 03/04/18 06:45 AST 26 U/L (17-59) 03/04/18 06:45 ALT 16 U/L (7-56) 03/04/18 06:45 Alkaline Phosphatase 100 U/L (38-126) 03/04/18 06:45 C-Reactive Protein 38.50 mg/L (0.0-9.9) H 03/02/18 10:35 C-React Prot High Sens > 15.00 mg/L (1.00-3.00) H 02/23/18 07:30 Total Protein 7.3 g/dL (5.8-8.3) 03/04/18 06:45 Albumin 3.5 g/dL (3.0-4.8) 03/04/18 06:45 Globulin 3.8 gm/dL 03/04/18 06:45 Albumin/Globulin Ratio 0.9 (1.1-1.8) L 03/04/18 06:45 Venous Blood Potassium 4.0 mmol/L (3.6-5.2) 02/22/18 16:48 Vancomycin Trough 12.6 ug/mL (5.0-10.0) H 02/25/18 07:40 Blood Type A POSITIVE 02/22/18 16:49 Blood Type Confirm A POSITIVE 02/22/18 17:00 Antibody Screen Negative 02/22/18 16:49 BBK History Checked No verified bt 02/22/18 16:49 - Hospital Course Hospital Course: Varinder Andersen, PGY-1 Discharge Summary for Hospitalist Service 62 y/o male w/ pmh of DM2, chronic neuropathy, PVD, CAD, HTN, osteomyelitis s/p left 5th metatarsal amputation (12/01), and s/p debridement of left anterior tibial angioplasty (12/31), admitted for chronic left anterior foot ulceration on 02/22/18. Patient reported worsening pain and redness in the left dorsolateral foot for one week. He then developed a fever of 101 so podiatry consulted. They recommended reporting to the ED. A left foot XR in the ED on showed possible septic arthritis at the 4th MTP joint. Chest XR showed no active pulmonary disease. ECG showed normal sinus rhythm. The patient was admitted for sepsis work up and possible osteomyelitis in the left foot. During the patients previous surgery in December, soft tissue biopsy came back positive for MRSA. Patient was placed on contact precautions. Initial labs revealed a normocytic anemia, likely anemia of chronic disease. H& H remained stable through admission. Patients hypertension managed with Lisinopril 20 mg PO QD and Amlodipine 10 mg PO QD. Hyperlipidemia was managed with Atorvastatin 80 mg PO QD. Glucose was managed with Levemir sliding scale. A Left foot MRI on 02/23 showed osteomyelitis of the 4th metatarsal and proximal phalanx with questionable involvement of the of 3rd metatarsal. US of the LLE on 02/23 showed normal MYRON and PVR. Infectious Disease was consulted, which recommended empiric IV vancomycin and Zosyn. Podiatry recommended a left foot transmetatarsal amputation. This was performed on 02/24 without complication. Patients WBC peaked at 13.4 on 02/25 but this improved to 10.2 the following day. Bone cultures collected at the time of surgery grew MSSA. Patient placed on IV Zosyn 2gm Q8. Patient placed on post- operative DVT prophylaxis including Lovenox 40 mg SC. Wound Care was consulted for pre and post-operative wound management. PT Consulted for inpatient gait training. Official post-operative pathology report showed abscess, necrosis, hemorrhage, and granulation tissue involving the 3rd and 4th digits. Infectious disease earliest recommendation was to continue 2 g IV Cefazolin Q8. Patient received a PICC line and switched to IV Rocephin on 03/04 for outpatient followup. Patient will be discharged on post-operative day 8. The [place] [facility] [place] for the next 4-6 weeks. Patient received prescription for outpatient physical therapy for gait training with walker and crutches. He will also need to follow up for weekly ESR, CRP, CBC, and CMP. Educated patient on importance of seeing his eye doctor, monitoring his glucose and taking his insulin appropriately. Also educated on importance of proper hygiene and monitoring his foot for any future injuries or infection. In regards to his hypertension he will continue with his daily Lisinopril and Amlodipine. All questions were answered and the patient is agreeable with this plan. Discharge Exam - Head Exam Head Exam: ATRAUMATIC, NORMAL INSPECTION, NORMOCEPHALIC - Eye Exam Eye Exam: EOMI, Normal appearance Pupil Exam: NORMAL ACCOMODATION - ENT Exam ENT Exam: Normal Exam - Neck Exam Neck exam: Normal Inspection - Respiratory Exam Respiratory Exam: NORMAL BREATHING PATTERN, UNREMARKABLE - Cardiovascular Exam Cardiovascular Exam: RRR, +S1, +S2 - GI/Abdominal Exam GI & Abdominal Exam: Normal Bowel Sounds, Soft. absent: Guarding, Rebound, Tenderness - Extremities Exam Additional comments: L leg wrapped distal to the knee down to foot. No obvious exudate noted through wrapping. - Neurological Exam Neurological exam: Alert, CN II-XII Intact, Oriented x3 - Psychiatric Exam Psychiatric exam: Normal Affect, Normal Mood Discharge Plan - Discharge Medications Prescriptions: Aspirin [Ecotrin] 81 mg PO DAILY #30 tabec Atorvastatin [Lipitor] 40 mg PO DAILY #30 tab cefTRIAXone 1 gm [Rocephin 1 gram IVPB] 2 gm IVPB DAILY 41 Days bag Insulin Detemir [Levemir] 8 unit SC AMHS 30 Days #100 ml Insulin Human Regular [HumuLIN R] 4 units SC AC 30 Days #100 ml - Follow Up Plan Condition: IMPROVED Disposition: DISCHARGED TO HOME CARE Instructions: Peripherally-Inserted Central Catheter (DC), Cellulitis (DC), Cellulitis (GEN), Hypertension (DC), Hypertension (GEN) Additional Instructions: 1. Please be sure to follow up with yearly ophthalmology visits 2. Please make sure to come [place] [facility] [place] for daily infusions of Rocephin for 6 weeks (41 days after today) 3. Should symptoms persist or worsen please return to your nearest ED Referrals: Dada Dorsey MD [Staff Provider] - Jian Jauregui DPM [Staff Provider] - <Heena Moreno - Last Filed: 03/04/18 16:53> Provider - Provider Date of Admission: 02/22/18 16:46 Attending physician: Heena Moreno MD Hospital Course - Lab Results Lab Results: Micro Results 02/22/18 18:00 Foot - Left Gram Stain - Final 02/22/18 18:00 Foot - Left Wound Culture - Final Staphylococcus Aureus Most Recent Lab Values WBC 8.8 10^3/ul (4.5-11.0) 03/04/18 06:45 RBC 2.96 10^6/uL (3.5-6.1) L 03/04/18 06:45 Hgb 8.8 g/dL (14.0-18.0) L 03/04/18 06:45 Hct 26.5 % (42.0-52.0) L 03/04/18 06:45 MCV 89.5 fl (80.0-105.0) 03/04/18 06:45 MCH 29.7 pg (25.0-35.0) 03/04/18 06:45 MCHC 33.2 g/dl (31.0-37.0) 03/04/18 06:45 RDW 14.1 % (11.5-14.5) 03/04/18 06:45 Plt Count 387 10^3/uL (120.0-450.0) 03/04/18 06:45 MPV 8.2 fl (7.0-11.0) 03/04/18 06:45 Gran % 62.7 % (50.0-68.0) 03/04/18 06:45 Lymph % (Auto) 29.4 % (22.0-35.0) 03/04/18 06:45 Hoke % (Auto) 5.1 % (1.0-6.0) 03/04/18 06:45 Eos % (Auto) 2.5 % (1.5-5.0) 03/04/18 06:45 Baso % (Auto) 0.3 % (0.0-3.0) 03/04/18 06:45 Gran # 5.51 (1.4-6.5) 03/04/18 06:45 Lymph # (Auto) 2.6 (1.2-3.4) 03/04/18 06:45 Hoke # (Auto) 0.5 (0.1-0.6) 03/04/18 06:45 Eos # (Auto) 0.2 (0.0-0.7) 03/04/18 06:45 Baso # (Auto) 0.03 K/mm3 (0.0-2.0) 03/04/18 06:45 ESR 112 mm/hr (0.00-15.0) H 03/03/18 06:30 Retic Count 1.45 % (0.5-1.5) 02/23/18 06:40 PT 13.7 SECONDS (9.4-12.5) H 02/22/18 15:30 INR 1.20 (0.93-1.08) H 02/22/18 15:30 APTT 28.4 Seconds (25.1-36.5) 02/22/18 15:30 pO2 53 mm/Hg (30-55) 02/22/18 16:48 VBG pH 7.39 (7.32-7.43) 02/22/18 16:48 VBG pCO2 48.0 (40-60) 02/22/18 16:48 VBG HCO3 29.1 mmol/l (21-28) H 02/22/18 16:48 VBG Total CO2 30.6 mmol.L (22-28) H 02/22/18 16:48 VBG O2 Sat (Calc) 89.2 % (40-65) H 02/22/18 16:48 VBG Base Excess 3.3 mmol/L (0.0-2.0) H 02/22/18 16:48 VBG Potassium 4.0 mmol/L (3.6-5.2) 02/22/18 16:48 Sodium 136.0 mmol/L (132-148) 02/22/18 16:48 Chloride 104.0 mmol/L (98-107) 02/22/18 16:48 Glucose 191 mg/dl (75-110) H 02/22/18 16:48 Lactate 1.2 mmol/L (0.7-2.1) 02/22/18 16:48 FiO2 21.0 % 02/22/18 16:48 Sodium 143 mmol/L (132-148) 03/04/18 06:45 Potassium 4.5 mmol/L (3.6-5.0) 03/04/18 06:45 Chloride 104 mmol/L (98-107) 03/04/18 06:45 Carbon Dioxide 27 mmol/L (21-33) 03/04/18 06:45 Anion Gap 16 (10-20) 03/04/18 06:45 BUN 20 mg/dL (7-21) 03/04/18 06:45 Creatinine 1.1 mg/dl (0.8-1.5) 03/04/18 06:45 Est GFR ( Amer) > 60 03/04/18 06:45 Est GFR (Non-Af Amer) > 60 03/04/18 06:45 POC Glucose (mg/dL) 160 mg/dL (65-110) H 03/04/18 16:04 Random Glucose 94 mg/dL (70-110) 03/04/18 06:45 Calcium 8.9 mg/dL (8.4-10.5) 03/04/18 06:45 Iron 29 ug/dL (45-180) L 02/23/18 06:40 TIBC 176 ug/dL (261-462) L 02/23/18 06:40 % Saturation 17 % (20-55) L 02/23/18 06:40 Ferritin 431.0 ng/mL 02/22/18 19:20 Total Bilirubin 0.2 mg/dL (0.2-1.3) 03/04/18 06:45 AST 26 U/L (17-59) 03/04/18 06:45 ALT 16 U/L (7-56) 03/04/18 06:45 Alkaline Phosphatase 100 U/L (38-126) 03/04/18 06:45 C-Reactive Protein 38.50 mg/L (0.0-9.9) H 03/02/18 10:35 C-React Prot High Sens > 15.00 mg/L (1.00-3.00) H 02/23/18 07:30 Total Protein 7.3 g/dL (5.8-8.3) 03/04/18 06:45 Albumin 3.5 g/dL (3.0-4.8) 03/04/18 06:45 Globulin 3.8 gm/dL 03/04/18 06:45 Albumin/Globulin Ratio 0.9 (1.1-1.8) L 03/04/18 06:45 Venous Blood Potassium 4.0 mmol/L (3.6-5.2) 02/22/18 16:48 Vancomycin Trough 12.6 ug/mL (5.0-10.0) H 02/25/18 07:40 Blood Type A POSITIVE 02/22/18 16:49 Blood Type Confirm A POSITIVE 02/22/18 17:00 Antibody Screen Negative 02/22/18 16:49 BBK History Checked No verified bt 02/22/18 16:49 Attending/Attestation - Attestation I have personally seen and examined this patient.: Yes I have fully participated in the care of the patient.: Yes I have reviewed all pertinent clinical information, including history, physical exam and plan: Yes Notes (Text): 03/04/18 16:46 62 year old male with past medical history of diabetes, CAD, hypertension and osteomyelitis s/p left 5th metatarsal amputation (12/01), s/p debridement and left anterior tibial angioplasty (12/31) who presented with worsening chronic left anterior foot ulceration. He was seen by ID and podiatry and started on iv antibiotics. He is s/p transmetatarsal resection of left foot POD #8. Picc line was placed today and patient will be discharged on iv antibiotics to complete as outpatient with weekly labs including ESR/CRP. Patient is discharged home to follow up with his pmd. Follow up with wound care / podiatry. Follow up at infusion center for iv antibiotics. Weekly labs, ESR CRP. Follow up with applications sales consultant. Heena Moreno MD Hospitalist.
== END 2018-03-04 18:48 | disposition home or self-care (01) | DRG 581 ==
LOC: ED 14:14 → ERH 16:46 → 5RSO 19:03
PROVIDERS: ADMIT Internal Medicine; ATTEND Internal Medicine
PROC: 0Y6N0ZB Detachment at Left Foot, Partial 2nd Ray, Open Approach (ICD-10-PCS; 2018-02-24)
PROC: 0Y6N0ZC Detachment at Left Foot, Partial 3rd Ray, Open Approach (ICD-10-PCS; 2018-02-24)
PROC: 0Y6N0ZD Detachment at Left Foot, Partial 4th Ray, Open Approach (ICD-10-PCS; 2018-02-24)
PROC: 0Y6N0Z9 Detachment at Left Foot, Partial 1st Ray, Open Approach (ICD-10-PCS; principal; 2018-02-24 11:00)
PROC: 02HV33Z Insertion of Infusion Device into Superior Vena Cava, Percutaneous Approach (ICD-10-PCS; 2018-03-04)
PROC: B54MZZA Ultrasonography of Right Upper Extremity Veins, Guidance (ICD-10-PCS; 2018-03-04)
DX: A41.9 Sepsis, unspecified organism (principal); M86.172 Other acute osteomyelitis, left ankle and foot; E11.51 Type 2 diabetes mellitus with diabetic peripheral angiopathy without gangrene; E11.621 Type 2 diabetes mellitus with foot ulcer; L97.529 Non-pressure chronic ulcer of other part of left foot with unspecified severity; E11.42 Type 2 diabetes mellitus with diabetic polyneuropathy; E11.65 Type 2 diabetes mellitus with hyperglycemia; L03.116 Cellulitis of left lower limb; L02.612 Cutaneous abscess of left foot; E11.69 Type 2 diabetes mellitus with other specified complication; B95.61 Methicillin susceptible Staphylococcus aureus infection as the cause of diseases classified elsewhere; I10 Essential (primary) hypertension; I25.10 Atherosclerotic heart disease of native coronary artery without angina pectoris; D63.8 Anemia in other chronic diseases classified elsewhere; E55.9 Vitamin D deficiency, unspecified; E78.5 Hyperlipidemia, unspecified; Z89.422 Acquired absence of other left toe(s); Z79.4 Long term (current) use of insulin; Z86.14 Personal history of Methicillin resistant Staphylococcus aureus infection; Z87.891 Personal history of nicotine dependence; Z83.3 Family history of diabetes mellitus; Z82.3 Family history of stroke

== ENCOUNTER 2018-04-12 08:01 | Inpatient (IN) | payer MEDICAID, OTHER ==
[2018-04-12 08:08] VITALS: BMI 26.4
[2018-04-12] MEDS ORDERED: Sodium Chloride 0.9% 1,000 ML IV STA (08:22)
[2018-04-12] MEDS ORDERED: Alum-Mag Hydrox-Simethicone Susp (30 mL) PO STA (08:22)
--- NOTE | 2018-04-12 08:22 | ED PDOC ---
Arrival/HPI - General Chief Complaint: GI Problem Time Seen by Provider: 04/12/18 08:14 Historian: Patient, Spouse - History of Present Illness Narrative History of Present Illness (Text): 04/12/18 08:21 A 62 year old male, whose past medical history includes diabetes and hypertension, presents to the emergency department complaining of acid reflux since last night. Patient reports everything he eats, he vomits and he has vomited at least 5 times today. Patient reports he would sometimes induce vomiting by using his finger due to the nausea. Patient notes his stool was normal this morning and has stopped taking his blood pressure medication since the acid reflux began. Patient reports he has not taken any medication for acid reflux symptoms. Patient's reports patient receives antibiotics, rocephin, through a pickline everyday from this hospital and patient has not consumed any significant foods to cause his current symptoms. Patient denies any fever, chills, shortness of breath, chest pain, diarrhea, urinary symptoms, back pain , neck pain, headache, dizziness, or any other complaints. Time/Duration: Other (last night) Symptom Onset: Gradual Symptom Course: Unchanged Activities at Onset: Light Context: Home Past Medical History - Provider Review Nursing Documentation Reviewed: Yes - Infectious Disease Hx of Infectious Diseases: None - Cardiac Hx Cardiac Disorders: No Hx Pacemaker: No - Pulmonary Hx Respiratory Disorders: No - Neurological Hx Neurological Disorder: Yes Other/Comment: neuropathy - HEENT Hx HEENT Disorder: No - Renal Hx Renal Disorder: No - Endocrine/Metabolic Hx Diabetes Mellitus Type 1: Yes - Hematological/Oncological Hx Cancer: No - Integumentary Hx Dermatological Disorder: Yes Other/Comment: LEFT GREAT TOE DISCOLORED - Musculoskeletal/Rheumatological Hx Musculoskeletal Disorders: No - Gastrointestinal Hx Gastrointestinal Disorders: No - Genitourinary/Gynecological Hx Genitourinary Disorders: No - Psychiatric Hx Psychophysiologic Disorder: No Hx Substance Use: No - Surgical History Hx Mastectomy: No - Anesthesia Hx Anesthesia Reactions: No Hx Malignant Hyperthermia: No Family/Social History - Physician Review Nursing Documentation Reviewed: Yes Family/Social History: Unknown Family HX Smoking Status: Former Smoker Hx Alcohol Use: No Hx Substance Use: No Allergies/Home Meds Allergies/Adverse Reactions: Allergies No Known Allergies Allergy (Verified 04/12/18 12:01) Home Medications: Home Meds Medication Instructions Recorded Confirmed Insulin Detemir [Levemir] 4 unit SC [facility] 03/16/18 04/12/18 Review of Systems - Physician Review All systems were reviewed & negative as marked: Yes - Review of Systems Constitutional: absent: Fevers, Night Sweats Respiratory: absent: SOB Cardiovascular: absent: Chest Pain Gastrointestinal: Nausea, Vomiting. absent: Diarrhea Genitourinary Male: absent: Urinary Output Changes Musculoskeletal: absent: Back Pain, Neck Pain Neurological: absent: Headache, Dizziness Physical Exam Vital Signs Reviewed: Yes Vital Signs Temp Pulse Resp BP Pulse Ox 04/12/18 12:29 98.7 F 60 18 186/90 H 99 04/12/18 12:24 58 L 186/90 H 04/12/18 11:17 98 F 58 L 18 178/86 H 96 04/12/18 09:30 60 18 143/93 H 99 04/12/18 08:02 98.2 F 55 L 22 199/89 H 97 Temperature: Afebrile Blood Pressure: Hypertensive Pulse: Bradycardic Respiratory Rate: Normal Appearance: Positive for: Well-Appearing, Non-Toxic, Uncomfortable Pain Distress: None Mental Status: Positive for: Alert and Oriented X 3 - Systems Exam Head: Present: Atraumatic, Normocephalic Pupils: Present: PERRL Extroacular Muscles: Present: EOMI Conjunctiva: Present: Normal Mouth: Present: Moist Mucous Membranes Neck: Present: Normal Range of Motion Respiratory/Chest: Present: Clear to Auscultation, Good Air Exchange. No: Respiratory Distress, Accessory Muscle Use Cardiovascular: Present: Regular Rate and Rhythm, Normal S1, S2. No: Murmurs Abdomen: Present: Tenderness (+epigastric tenderness). No: Distention, Peritoneal Signs, Rebound, Guarding, McBurney's Point Tender, Rovsing's Sign Present, Hernias, Feeding Tubes, Ostomy Tubes, Mass/Organomegaly, Scars Back: Present: Normal Inspection Upper Extremity: Present: Normal Inspection, Other (+Pickline in right arm). No : Cyanosis, Edema, Erythema (+pickline is not erythemous) Lower Extremity: Present: Normal Inspection. No: Edema Neurological: Present: GCS=15, CN II-XII Intact, Speech Normal Skin: Present: Warm, Dry, Normal Color. No: Rashes Psychiatric: Present: Alert, Oriented x 3, Normal Insight, Normal Concentration Medical Decision Making ED Course and Treatment: 04/12/18 08:25 Impression: 62 year old male presenting to the Emergency department complaining of acid reflux. Plan: -- CMP -- Lipase -- Troponin I -- CBC with differential -- Maalox -- Zofran -- IV Fluids -- Reassess and disposition Prior Visits: Notes and results from previous visits were reviewed. Progress Notes: 04/12/18 08:10 EKG: Ordered, reviewed, and independently interpreted the EKG. Rate : 58 BPM Rhythm : Mild sinus bradycardia Interpretation : No ST-segment elevations or depressions. 04/12/18 10:06 Upon reassessment, lipase is elevated to 1000; likely pancreatitis. Tbili is 1.9. I ordered a RUQ US. Patient will continue with fluids. 04/12/18 10:55 Hospitalist paged 04/12/18 11:15 Hospitalist paged 04/12/18 11:22 Patient was accepted and admitted into Dr. Erickson's care. Endorsed pending US. 04/12/18 18:05 US reviewed: unremarkable - Lab Interpretations Lab Results: 04/12/18 08:35 04/12/18 08:35 Lab Results 04/12/18 08:48: POC Glucose (mg/dL) 240 H 04/12/18 08:35: Sodium 140, Potassium 3.6, Chloride 100, Carbon Dioxide 21, Anion Gap 22 H, BUN 22 H, Creatinine 1.2, Est GFR ( Amer) > 60, Est GFR ( Non-Af Amer) > 60, Random Glucose 225 H, Calcium 9.2, Total Bilirubin 1.9 H, AST 28, ALT 53, Alkaline Phosphatase 294 H, Troponin I 0.05 D, Total Protein 7.6, Albumin 4.0, Globulin 3.6, Albumin/Globulin Ratio 1.1, Lipase 1056 H 04/12/18 08:35: WBC 8.9 D, RBC 3.28 L, Hgb 10.0 L, Hct 28.4 L, MCV 86.6, MCH 30.5, MCHC 35.2, RDW 13.7, Plt Count 160, MPV 10.0, Gran % 85.0 H, Lymph % (Auto ) 9.5 L, [place] % (Auto) 5.3, Eos % (Auto) 0.1 L, Baso % (Auto) 0.1, Gran # 7.54 H , Lymph # (Auto) 0.8 L, [place] # (Auto) 0.5, Eos # (Auto) 0.0, Baso # (Auto) 0.01 04/12/18 08:30: Triglycerides 107, Cholesterol 128 L, LDL Cholesterol Direct 57 , HDL Cholesterol 28 L 04/12/18 08:30: Alcohol, Quantitative < 10 - RAD Interpretation Radiology Orders: 04/12/18 10:01 GALLBLADDER & COMMON DUCT [US] Stat - Medication Orders Current Medication Orders: Ascorbic Acid (Vitamin C 500 Mg Tab) 500 mg PO DAILY [facility] Aspirin (Ecotrin) 81 mg PO DAILY [facility] Atorvastatin Calcium (Lipitor) 40 mg PO HS [facility] Enoxaparin Sodium (Lovenox) 40 mg SC DAILY [facility] PRN Reason: Protocol Hydralazine HCl (Apresoline) 25 mg IVP STAT [facility] Last Admin: 04/12/18 16:32 Dose: 25 mg IVP Administration Document 04/12/18 16:32 TAV (Rec: 04/12/18 16:33 TAV [facility] [id number][place] Charges for Administration # of IVP Administrations 1 MAR Pulse and Blood Pressure Document 04/12/18 16:32 TAV (Rec: 04/12/18 16:33 TAV [facility] [id number]) Pulse Pulse Rate (60-90) 72 Blood Pressure Blood Pressure (100/60-150/90) 197/91 Hydralazine HCl (Apresoline) 10 mg IVP Q6 PRN PRN Reason: SBP > 160 OR DBP > 100 Sodium Chloride (Sodium Chloride 0.9%) 1,000 mls @ 150 mls/hr IV .Q6H40M [facility] Insulin Human Lispro (Humalog Low) 0 units SC ACHS [facility] PRN Reason: Protocol Ketorolac Tromethamine (Toradol) 15 mg IVP Q6H PRN PRN Reason: Pain, severe (8-10) Lisinopril (Zestril) 20 mg PO DAILY [facility] Last Admin: 04/12/18 12:24 Dose: 20 mg MAR Pulse and Blood Pressure Document 04/12/18 12:24 SRE (Rec: 04/12/18 12:27 SRE [id number]) Pulse Pulse Rate (60-90) 58 Blood Pressure Blood Pressure (100/60-150/90) 186/90 Ondansetron HCl (Zofran Inj) 4 mg IVP Q6H PRN PRN Reason: Nausea/Vomiting Last Admin: 04/12/18 16:32 Dose: 4 mg IVP Administration Document 04/12/18 16:32 TAV (Rec: 04/12/18 16:32 TAV [facility] [id number]) Charges for Administration # of IVP Administrations 1 Pantoprazole Sodium (Protonix Inj) 40 mg IVP DAILY [facility] Vitamin D (Vitamin D 400 Intl Units Tab) 600 intlu PO DAILY [facility] Discontinued Medications Al Hydrox/Mg Hydrox/Simethicone (Maalox Plus 30 Ml) 30 ml PO STAT [facility] Stop: 04/12/18 08:23 Last Admin: 04/12/18 08:43 Dose: 30 ml Amlodipine Besylate (Norvasc) 10 mg PO STAT [facility] Stop: 04/12/18 16:07 Aspirin (Ecotrin) 81 mg PO HS [facility] Atorvastatin Calcium (Lipitor) 40 mg PO DAILY [facility] Enalaprilat (Vasotec Iv) 1.25 mg IVP STAT STA Stop: 04/12/18 16:01 Last Admin: 04/12/18 17:55 Dose: 1.25 mg MAR Blood Pressure Document 04/12/18 17:55 TAV (Rec: 04/12/18 17:55 TAV [facility] [id number][place] Blood Pressure Blood Pressure (100/60-150/90) 179/88 IVP Administration Document 04/12/18 17:55 TAV (Rec: 04/12/18 17:55 TAV [facility] [id number]) Charges for Administration # of IVP Administrations 1 Hydralazine HCl (Apresoline) 10 mg IVP ONCE ONE Stop: 04/12/18 12:43 Last Admin: 04/12/18 13:34 Dose: 10 mg IVP Administration Document 04/12/18 13:34 TAV (Rec: 04/12/18 13:35 TAV [id number]) Charges for Administration # of IVP Administrations 1 MAR Pulse and Blood Pressure Document 04/12/18 13:34 TAV (Rec: 04/12/18 13:35 TAV [id number]) Pulse Pulse Rate (60-90) 57 Blood Pressure Blood Pressure (100/60-150/90) 212/100 Hydralazine HCl (Apresoline) 10 mg IVP Q6 PRN PRN Reason: SBP > 160, DBP > 100 Hydralazine HCl (Apresoline) 10 mg IVP ONCE ONE Stop: 04/12/18 13:21 Sodium Chloride (Sodium Chloride 0.9%) 1,000 mls @ 333 mls/hr IV .Q3H1M [facility] Stop: 04/12/18 11:22 Last Admin: 04/12/18 08:41 Dose: 333 mls/hr eMAR Start Stop Document 04/12/18 08:41 SRE (Rec: 04/12/18 08:42 SRE [id number]) Intravenous Solution Start Date 04/12/18 Start Time 08:40 End Date 04/12/18 End time 11:40 Total Infusion Time 180 Metoclopramide HCl (Reglan) 10 mg IVP STAT [facility] Stop: 04/12/18 11:17 Last Admin: 04/12/18 11:23 Dose: 10 mg IVP Administration Document 04/12/18 11:23 SRE (Rec: 04/12/18 11:25 SRE [id number]) Charges for Administration # of IVP Administrations 1 Non-Formulary Medication (Ceftriaxone 1 Gm) 2 gm IVPB DAILY [facility] Ondansetron HCl (Zofran Inj) 4 mg IVP STAT ST[facility] Stop: 04/12/18 08:23 Last Admin: 04/12/18 08:42 Dose: 4 mg IVP Administration Document 04/12/18 08:42 SRE (Rec: 04/12/18 08:42 SRE [id number]) Charges for Administration # of IVP Administrations 1 Pneumococcal Polyvalent Vaccine (Pneumovax 23 Vaccine) 0.5 ml IM .ONCE ONE Stop: 04/12/18 15:44 - Scribe Statement The provider has reviewed the documentation as recorded by the Oumou Driver All medical record entries made by the Oumou were at my direction and personally dictated by me. I have reviewed the chart and agree that the record accurately reflects my personal performance of the history, physical exam, medical decision making, and the department course for this patient. I have also personally directed, reviewed, and agree with the discharge instructions and disposition. Disposition/Present on Arrival - Present on Arrival Any Indicators Present on Arrival: No History of DVT/PE: No History of Uncontrolled Diabetes: No Urinary Catheter: No History of Decub. Ulcer: No History Surgical Site Infection Following: Orthopedic Procedures - Disposition Have Diagnosis and Disposition been Completed?: Yes Diagnosis: Pancreatitis Disposition: HOSPITALIZED Disposition Time: 11:22 Patient Plan: Admission Patient Problems: Current Active Problems Problem Status Onset Pancreatitis Acute Condition: GOOD
[2018-04-12 08:54] LABS: BASO # 0.01 K/mm3 (0.0-2.0); BASO % 0.1 % (0.0-3.0); EOS % 0.1 % (1.5-5.0); GRAN # 7.54 (1.4-6.5); LYMPH # 0.8 (1.2-3.4); LYMPH % 9.5 % (22.0-35.0); MEAN CELL VOLUME 86.6 fl (80.0-105.0); MEAN CORPUSCULAR HEMOGLOBIN 30.5 pg (25.0-35.0); MEAN CORPUSCULAR HGB CONC 35.2 g/dl (31.0-37.0); MONO # 0.5 (0.1-0.6); MONO % 5.3 % (1.0-6.0); RBC 3.28 10^6/uL (3.5-6.1); RED CELL DISTRIBUTION WIDTH 13.7 % (11.5-14.5); WHITE BLOOD COUNT 8.9 10^3/ul (4.5-11.0)
[2018-04-12 08:55] LABS: ALB/GLOB RATIO 1.1 (1.1-1.8); ALT/SGPT 53 U/L (7-56); AST/SGOT 28 U/L (17-59); BLOOD UREA NITROGEN 22 mg/dL (7-21); CALCIUM 9.2 mg/dL (8.4-10.5); GFR NON-AFRICAN AMERICAN > 60; LIPASE 1056 U/L (23-300)
[2018-04-12 09:06] LABS: TROPONIN I 0.05 ng/mL
--- NOTE | 2018-04-12 12:05 | CP.PCM.HP ---
History of Present Illness - History of Present Illness History of Present Illness: Paolo Kincaid, PGY-2: Hospitalist Service HPI 62-year-old male with a past medical history of diabetes, CAD, hypertension, dyslipidemia, osteomyelitis status post left transmetatarsal resection on IV Rocephin 2 g daily for the past 5 weeks who presents with two days of intractable nausea and vomiting. He reports vomiting 10 times in the past two days. He reports the vomit is yellow in color, non-bilious, non-bloody. He reports passing normal bowel movements without any kind of diarrhea. He also denies any dysuria, abdominal pain, rashes, hearing changes, unilateral weakness or numbness. He reports worsening of his reflux/dyspeptic symptoms when swallowing pills. In fact today he was unable to swallow whole his blood pressure medication . Other pertinent findings are that he is noncompliant with his diabetes medications. He reports taking metformin whenever his sugars are low and insulin only when he thinks his sugars are high. Otherwise, 12 point review of system is negative. He denies any alcohol use since November of this year. 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 Present on Admission - Present on Admission Any Indicators Present on Admission: No Review of Systems - Review of Systems All systems: reviewed and no additional remarkable complaints except (as per HPI ) Past Patient History - Infectious Disease Hx of Infectious Diseases: None - Past Social History Smoking Status: Former Smoker - CARDIAC Hx Cardiac Disorders: No Hx Pacemaker: No - PULMONARY Hx Respiratory Disorders: No - NEUROLOGICAL Hx Neurological Disorder: Yes Other/Comment: neuropathy - HEENT Hx HEENT Problems: No - RENAL Hx Chronic Kidney Disease: No - ENDOCRINE/METABOLIC Hx Diabetes Mellitus Type 1: Yes - HEMATOLOGICAL/ONCOLOGICAL Hx Cancer: No - INTEGUMENTARY Hx Dermatological Problems: Yes Other/Comment: LEFT GREAT TOE DISCOLORED - MUSCULOSKELETAL/RHEUMATOLOGICAL Hx Musculoskeletal Disorders: No - GASTROINTESTINAL Hx Gastrointestinal Disorders: No - GENITOURINARY/GYNECOLOGICAL Hx Genitourinary Disorders: No - PSYCHIATRIC Hx Psychophysiologic Disorder: No Hx Substance Use: No - SURGICAL HISTORY Hx Mastectomy: No - ANESTHESIA Hx Anesthesia Reactions: No Hx Malignant Hyperthermia: No Meds Allergies/Adverse Reactions: Allergies Allergy/AdvReac Type Severity Reaction Status Date / Time No Known Allergies Allergy Verified 04/12/18 12:01 Physical Exam - Constitutional Appears: In Acute Distress - Head Exam Head Exam: ATRAUMATIC, NORMOCEPHALIC - Eye Exam Eye Exam: EOMI, Normal appearance. absent: Conjunctival injection, Scleral icterus - ENT Exam ENT Exam: Mucous Membranes Moist Additional comments: poor dentition - Neck Exam Neck exam: Positive for: Normal Inspection - Respiratory Exam Respiratory Exam: Clear to Auscultation Bilateral, NORMAL BREATHING PATTERN. absent: Accessory Muscle Use - Cardiovascular Exam Cardiovascular Exam: RRR, +S1, +S2 - GI/Abdominal Exam GI & Abdominal Exam: Hypoactive Bowel Sounds, Soft. absent: Distended, Guarding , Rebound - Extremities Exam Extremities exam: Positive for: normal inspection. Negative for: calf tenderness Additional comments: left transmetatarsal resection noted - Back Exam Back exam: NORMAL INSPECTION. absent: CVA tenderness (L), CVA tenderness (R) - Neurological Exam Neurological exam: Alert, CN II-XII Intact, Oriented x3 - Psychiatric Exam Psychiatric exam: Normal Affect, Normal Mood - Skin Skin Exam: Dry, Intact, Normal Color, Warm Results - Vital Signs Recent Vital Signs: Last Vital Signs Temp 98.2 F 04/12/18 08:02 Pulse 58 L 04/12/18 11:17 Resp 18 04/12/18 11:17 BP 178/86 H 04/12/18 11:17 Pulse Ox 96 04/12/18 11:17 - Labs Result Diagrams: 04/12/18 08:35 04/12/18 08:35 - EKG Data Rate: Bradycardia Assessment & Plan - Assessment and Plan (Free Text) Assessment: 62 year old male with a past medical history of hypertension, dyslipidemia, CAD , DM II, OM s/p left transmetatarsal resection 5 weeks ago and on IV Rocephin 2 grams daily since the surgery who presents with 2 days of intractable nausea, vomiting, and was found to have an elevated lipase along with a cholestatic pattern of liver injury. Plan: 1) Pancreatitis, secondary to stone or drugs, including Rocephin and Lisinopril - Abdominal US ordered - NPO - NS 150 ml/hr - Toradol 15 mg q6h PRN for pain - GI consulted - Serum alcohol, lipid panel, urine drug screen ordered - Holding Lisinopril and Rocephin at this time 2) Osteomyelitis on IV antibiotics - ID consulted, Dr. Oates - Podiatry consulted, Dr. Cox 3) Hypertension - Hydralazine 10 mng q6h PRN for SBP > 160, DBP > 100 4) DM II - ISS lispro (low dose) - HgbA1c ordered 5) DVT/GI prophylaxis - Lovenox 40 mg SC daily - Protonix 40 mg IVP daily 6) Atypical chest pain and nausea in a patient with DM and peripheral vascular disease - EKG showed sinus bradycardia - Troponins x 3 trend, initial was 0.05 Case reviewed and discussed with attending physician, Dr. Moreno - Date & Time Date: 04/12/18 Time: 12:58
[2018-04-12 12:42] LABS: HDL CHOLESTEROL 28 mg/dL (29-60)
[2018-04-12 12:52] LABS: LDL CHOLESTEROL 57 mg/dL (0-129)
--- NOTE | 2018-04-12 13:51 | CP.PCM.CON ---
<Ashley Granado - Last Filed: 04/12/18 14:09> History of Present Illness - History of Present Illness History of Present Illness: GI Fellow PGY5 Consult Note This is a 62 y/o male w/ pmh of DM2, chronic neuropathy, PVD, CAD, HTN, osteomyelitis s/p left 5th metatarsal amputation (12/01), and s/p debridement of left anterior tibial angioplasty (12/31), chronic left anterior foot ulceration with osteomyelitis of the 4th metatarsal and proximal phalanx s/p left foot transmetatarsal amputation 02/24/18. Patient received a PICC line and daily Rocephin infusions for the next 6 weeks. Pt is now presenting with complaints of intractable nausea and vomiting for one week worse over two days, emesis is bilious non-bloody. Pt reports initially he started experiencing severe acid reflux and inducing emesis to help with nausea but no its progressively worse with uncontrolled emesis. He also reports fevers of 100.5 and chills during the past one week. He has abdominal discomfort but denies sharp abdominal pain nonradiating to his back. His last etoh drink was four months ago and quit smoking years ago. No recent medications except IV abx Rocephin for infection. He denies any prior complaints of GERD. No prior EGD or Colonoscopy, no rectal bleeding, no unintentional weightloss, no family hx of malignancy. No prior hx of pancreatitis. ROS: A 12pt ROS was negative except as above Pmhx: As stated above Pshx: TMA Shx: denies etoh, drugs, tobacco Fhx: Neg for colon or liver cancer Past Patient History - Infectious Disease Hx of Infectious Diseases: None - Past Social History Smoking Status: Former Smoker - CARDIAC Hx Cardiac Disorders: No Hx Pacemaker: No - PULMONARY Hx Respiratory Disorders: No - NEUROLOGICAL Hx Neurological Disorder: Yes Other/Comment: neuropathy - HEENT Hx HEENT Problems: No - RENAL Hx Chronic Kidney Disease: No - ENDOCRINE/METABOLIC Hx Diabetes Mellitus Type 1: Yes - HEMATOLOGICAL/ONCOLOGICAL Hx Cancer: No - INTEGUMENTARY Hx Dermatological Problems: Yes Other/Comment: LEFT GREAT TOE DISCOLORED - MUSCULOSKELETAL/RHEUMATOLOGICAL Hx Musculoskeletal Disorders: No - GASTROINTESTINAL Hx Gastrointestinal Disorders: No - GENITOURINARY/GYNECOLOGICAL Hx Genitourinary Disorders: No - PSYCHIATRIC Hx Psychophysiologic Disorder: No Hx Substance Use: No - SURGICAL HISTORY Hx Mastectomy: No - ANESTHESIA Hx Anesthesia Reactions: No Hx Malignant Hyperthermia: No Meds Allergies/Adverse Reactions: Allergies Allergy/AdvReac Type Severity Reaction Status Date / Time No Known Allergies Allergy Verified 04/12/18 12:01 - Medications Medications: Current Medications Ascorbic Acid (Vitamin C 500 Mg Tab) 500 mg PO DAILY [facility] Aspirin (Ecotrin) 81 mg PO DAILY [facility] Atorvastatin Calcium (Lipitor) 40 mg PO HS [facility] Enoxaparin Sodium (Lovenox) 40 mg SC DAILY [facility] PRN Reason: Protocol Hydralazine HCl (Apresoline) 10 mg IVP Q6 PRN PRN Reason: SBP > 160, DBP > 100 Hydralazine HCl (Apresoline) 10 mg IVP ONCE ONE Stop: 04/12/18 13:21 Sodium Chloride (Sodium Chloride 0.9%) 1,000 mls @ 150 mls/hr IV .Q6H40M [facility] Insulin Human Lispro (Humalog Low) 0 units SC ACHS [facility] PRN Reason: Protocol Ketorolac Tromethamine (Toradol) 15 mg IVP Q6H PRN PRN Reason: Pain, severe (8-10) Lisinopril (Zestril) 20 mg PO DAILY [facility] Last Admin: 04/12/18 12:24 Dose: 20 mg Ondansetron HCl (Zofran Inj) 4 mg IVP Q6H PRN PRN Reason: Nausea/Vomiting Pantoprazole Sodium (Protonix Inj) 40 mg IVP DAILY [facility] Vitamin D (Vitamin D 400 Intl Units Tab) 600 intlu PO DAILY [facility] Physical Exam - Constitutional Appears: In Acute Distress, Chronically Ill - Head Exam Head Exam: ATRAUMATIC, NORMAL INSPECTION, NORMOCEPHALIC - Eye Exam Eye Exam: EOMI, Normal appearance, PERRL Pupil Exam: PERRL - ENT Exam ENT Exam: Mucous Membranes Dry - Neck Exam Neck exam: Positive for: Normal Inspection - Respiratory Exam Respiratory Exam: Clear to Auscultation Bilateral, NORMAL BREATHING PATTERN - Cardiovascular Exam Cardiovascular Exam: Tachycardia, +S1, +S2 - GI/Abdominal Exam GI & Abdominal Exam: Normal Bowel Sounds, Soft, Tenderness. absent: Distended, Firm, Guarding, Organomegaly - Rectal Exam Rectal Exam: absent: Deferred - Back Exam Back exam: NORMAL INSPECTION - Neurological Exam Neurological exam: Alert, Oriented x3 - Psychiatric Exam Psychiatric exam: Anxious - Skin Skin Exam: Dry, Intact, Normal Color, Warm Results - Vital Signs Recent Vital Signs: Last Vital Signs Temp 98.7 F 04/12/18 12:30 Pulse 58 L 04/12/18 12:30 Resp 18 04/12/18 12:30 BP 186/90 H 04/12/18 12:30 Pulse Ox 99 04/12/18 12:30 - Labs Result Diagrams: 04/12/18 08:35 04/12/18 08:35 Assessment & Plan - Assessment and Plan (Free Text) Assessment: This is a 62yM presenting with complaints of intractable N/V. 1. Intractable nausea and vomiting 2. Abdominal pain 3. Elevated Lipase 4. Elevated LFTs 5. Osteomyelitis s/p TMA on IV Rocephin wk6 Plan: -Continue supportive care with pain control and anti-emetics -NPO -Abd US pending to r/o gallstones -Abdominal pain not characteristics of pancreatitis -No CT imaging ordered due to CKD -Symptoms maybe from abx use, cholethiasis, gastroeneteritis -Lipase elevation is nonspecific -Will order lipid profile, serum etoh and UDS -Will order Hepatitis panel -Elevated LFTs maybe from abx use -Check Direct Bilirubin -PPI daily -IVF hydration @150cc/hr -Ordered blood cultures from venous and picc line to r/o bacteremia -No indication to add any further abx therapy -Will continue to monitor closely Discussed H/P and A/P with Dr. Novoa who agrees with the above mentioned plan of care. <Ephraim Novoa - Last Filed: 04/13/18 12:04> Meds - Medications Medications: Current Medications Ascorbic Acid (Vitamin C 500 Mg Tab) 500 mg PO DAILY [facility] Last Admin: 04/13/18 09:51 Dose: Not Given Aspirin (Ecotrin) 81 mg PO DAILY [facility] Atorvastatin Calcium (Lipitor) 40 mg PO HS [facility] Last Admin: 04/12/18 22:12 Dose: Not Given Enoxaparin Sodium (Lovenox) 40 mg SC DAILY [facility] PRN Reason: Protocol Last Admin: 04/13/18 09:44 Dose: 40 mg Hydralazine HCl (Apresoline) 25 mg IVP STAT [facility] Last Admin: 04/12/18 16:32 Dose: 25 mg Hydralazine HCl (Apresoline) 10 mg IVP Q6 PRN PRN Reason: SBP > 160 OR DBP > 100 Last Admin: 04/13/18 05:28 Dose: 10 mg Sodium Chloride (Sodium Chloride 0.9%) 1,000 mls @ 150 mls/hr IV .Q6H40M [facility] Last Admin: 04/13/18 09:43 Dose: 150 mls/hr Insulin Human Lispro (Humalog Low) 0 units SC ACHS [facility] PRN Reason: Protocol Last Admin: 04/13/18 08:26 Dose: Not Given Ketorolac Tromethamine (Toradol) 15 mg IVP Q6H PRN PRN Reason: Pain, severe (8-10) Lisinopril (Zestril) 20 mg PO DAILY [facility] Last Admin: 04/12/18 12:24 Dose: 20 mg Ondansetron HCl (Zofran Inj) 4 mg IVP Q6H PRN PRN Reason: Nausea/Vomiting Last Admin: 04/13/18 05:26 Dose: 4 mg Pantoprazole Sodium (Protonix Inj) 40 mg IVP DAILY [facility] Last Admin: 04/13/18 09:44 Dose: 40 mg Vitamin D (Vitamin D 400 Intl Units Tab) 600 intlu PO DAILY [facility] Last Admin: 04/13/18 09:51 Dose: Not Given Results - Vital Signs Recent Vital Signs: Last Vital Signs Temp 98.8 F 04/13/18 06:00 Pulse 71 04/13/18 06:00 Resp 20 04/13/18 06:00 BP 177/93 H 04/13/18 06:38 Pulse Ox 99 04/13/18 06:00 - Labs Result Diagrams: 04/13/18 06:00 04/13/18 06:00 Labs: Laboratory Results - last 24 hr 04/12/18 04/12/18 04/12/18 13:25 13:25 16:41 WBC RBC Hgb Hct MCV MCH MCHC RDW Plt Count MPV Gran % Lymph % (Auto) [place] % (Auto) Eos % (Auto) Baso % (Auto) Gran # Lymph # (Auto) [place] # (Auto) Eos # (Auto) Baso # (Auto) ESR Sodium Potassium Chloride Carbon Dioxide Anion Gap BUN Creatinine Est GFR ( Amer) Est GFR (Non-Af Amer) POC Glucose (mg/dL) Random Glucose Hemoglobin A1c 6.6 H D Calcium Phosphorus Magnesium Total Bilirubin Direct Bilirubin 0.7 H AST ALT Alkaline Phosphatase Troponin I 0.04 0.04 C-Reactive Protein Total Protein Albumin Globulin Albumin/Globulin Ratio Triglycerides Cholesterol LDL Cholesterol Direct HDL Cholesterol Urine Opiates Screen Urine Methadone Screen Ur Barbiturates Screen Ur Phencyclidine Scrn Ur Amphetamines Screen U Benzodiazepines Scrn U Oth Cocaine Metabols U Cannabinoids Screen Hepatitis A IgM Ab Hep Bs Antigen Hep B Core IgM Ab Hepatitis C Antibody 04/12/18 04/12/18 04/12/18 16:41 16:41 16:41 WBC RBC Hgb Hct MCV MCH MCHC RDW Plt Count MPV Gran % Lymph % (Auto) [place] % (Auto) Eos % (Auto) Baso % (Auto) Gran # Lymph # (Auto) [place] # (Auto) Eos # (Auto) Baso # (Auto) ESR 118 H Sodium Potassium Chloride Carbon Dioxide Anion Gap BUN Creatinine Est GFR ( Amer) Est GFR (Non-Af Amer) POC Glucose (mg/dL) Random Glucose Hemoglobin A1c Calcium Phosphorus Magnesium Total Bilirubin Direct Bilirubin AST ALT Alkaline Phosphatase Troponin I C-Reactive Protein 200.20 H Total Protein Albumin Globulin Albumin/Globulin Ratio Triglycerides Cholesterol LDL Cholesterol Direct HDL Cholesterol Urine Opiates Screen Urine Methadone Screen Ur Barbiturates Screen Ur Phencyclidine Scrn Ur Amphetamines Screen U Benzodiazepines Scrn U Oth Cocaine Metabols U Cannabinoids Screen Hepatitis A IgM Ab Negative Hep Bs Antigen Negative Hep B Core IgM Ab Negative Hepatitis C Antibody Negative 04/12/18 04/12/18 04/13/18 22:15 22:52 06:00 WBC 9.4 RBC 3.41 L Hgb 10.1 L Hct 29.9 L MCV 87.7 MCH 29.6 MCHC 33.8 RDW 13.9 Plt Count 169 MPV 10.0 Gran % 80.1 H Lymph % (Auto) 13.3 L [place] % (Auto) 6.4 H Eos % (Auto) 0.1 L Baso % (Auto) 0.1 Gran # 7.56 H Lymph # (Auto) 1.3 [place] # (Auto) 0.6 Eos # (Auto) 0.0 Baso # (Auto) 0.01 ESR Sodium Potassium Chloride Carbon Dioxide Anion Gap BUN Creatinine Est GFR ( Amer) Est GFR (Non-Af Amer) POC Glucose (mg/dL) 255 H Random Glucose Hemoglobin A1c Calcium Phosphorus Magnesium Total Bilirubin Direct Bilirubin AST ALT Alkaline Phosphatase Troponin I C-Reactive Protein Total Protein Albumin Globulin Albumin/Globulin Ratio Triglycerides Cholesterol LDL Cholesterol Direct HDL Cholesterol Urine Opiates Screen Negative Urine Methadone Screen Negative Ur Barbiturates Screen Negative Ur Phencyclidine Scrn Negative Ur Amphetamines Screen Negative U Benzodiazepines Scrn Negative U Oth Cocaine Metabols Negative U Cannabinoids Screen Negative Hepatitis A IgM Ab Hep Bs Antigen Hep B Core IgM Ab Hepatitis C Antibody 04/13/18 04/13/18 06:00 06:00 WBC RBC Hgb Hct MCV MCH MCHC RDW Plt Count MPV Gran % Lymph % (Auto) [place] % (Auto) Eos % (Auto) Baso % (Auto) Gran # Lymph # (Auto) [place] # (Auto) Eos # (Auto) Baso # (Auto) ESR Sodium 141 Potassium 3.7 Chloride 105 Carbon Dioxide 22 Anion Gap 18 BUN 28 H Creatinine 1.1 Est GFR ( Amer) > 60 Est GFR (Non-Af Amer) > 60 POC Glucose (mg/dL) Random Glucose 262 H Hemoglobin A1c Calcium 8.6 Phosphorus 4.0 Magnesium 2.4 H Total Bilirubin 0.9 Direct Bilirubin AST 16 L D ALT 41 Alkaline Phosphatase 251 H Troponin I C-Reactive Protein Total Protein 7.1 Albumin 3.7 Globulin 3.4 Albumin/Globulin Ratio 1.1 Triglycerides 100 Cholesterol 131 LDL Cholesterol Direct 71 HDL Cholesterol 26 L Urine Opiates Screen Urine Methadone Screen Ur Barbiturates Screen Ur Phencyclidine Scrn Ur Amphetamines Screen U Benzodiazepines Scrn U Oth Cocaine Metabols U Cannabinoids Screen Hepatitis A IgM Ab Hep Bs Antigen Hep B Core IgM Ab Hepatitis C Antibody Attending/Attestation - Attestation I have personally seen and examined this patient.: Yes I have fully participated in the care of the patient.: Yes I have reviewed all pertinent clinical information: Yes Notes (Text): 04/13/18 12:03 This is a 62 yr old M presenting with complaints of intractable N/V with elevated lipase and LFT, sonogram pending. Recent antibiotics for osteomyelitis may have contributed to the above. . Hepatitis profile and supporive care.
--- NOTE | 2018-04-12 14:46 | US ---
Date of service: 04/12/2018 HISTORY: pancreatitis COMPARISON: None. TECHNIQUE: Sonographic evaluation of the right upper quadrant of the abdomen. FINDINGS: LIVER: Measures 19.1 cm in length. Normal echogenicity of the liver parenchyma. No mass. No intrahepatic bile duct dilatation. GALLBLADDER: Unremarkable. No gallstones. COMMON BILE DUCT: Measures 5.5 mm. No stones. No dilatation. PANCREAS: Pancreas appears mildly atrophic diffusely without focal cystic or solid mass. No ductal dilatation. RIGHT KIDNEY: Measures 13.4 cm in length. Normal echogenicity. No calculus, mass, or hydronephrosis. AORTA: No aneurysmal dilatation. IVC: Unremarkable. OTHER FINDINGS: None . IMPRESSION: Unremarkable limited abdomen ultrasound exam. The pancreas appears mildly atrophic without pancreatic dilatation or definitive mass.
[2018-04-12] MEDS ORDERED: Pneumococcal 23-Valent Vaccine IM ONE (15:43)
[2018-04-12] MEDS ORDERED: EnalaprilAT 1.25 mg/ml Inj IVP STA (16:00)
[2018-04-12 16:54] LABS: BILIRUBIN,DIRECT 0.7 mg/dL (0.0-0.4)
[2018-04-12 17:06] LABS: TROPONIN I 0.04 ng/mL
[2018-04-12] MEDS: Insulin Lispro (humaLOG) LOW Coverage SC SCH ×2 (20:14→22:16)
--- NOTE | 2018-04-12 20:18 | CP.PCM.CON ---
History of Present Illness - History of Present Illness History of Present Illness: Infectious Disease Consultation: April 12, 2018 62 yo male with PMHx of DM, CAD, HTN, dyslipidemia, and history of Left heel osteomyelitis that ultimately required left transmetatarsal resection. The patient was still on IV Rocephin for treatment of osteomyelitis with MSSA. The patient was on week 5 of therapy. He began to have intractable nausea and vomiting for the past 2 days. The patient has known noncompliance with his diabetic treatment. He is currently complaining that he cannot swallow his blood pressure medications. The patient has known issues with GERDs as well. ESR has increased drastically to 118 from 27 a week ago. Lipase was found to be 1056. Unremarkable ultrasound of the gallbladder/abdomen. PMHx: HTN, DM Type II, Osteomyelitis, Dyslipidemia, CAD PSHx: Left Transmetatarsal resection. 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 Active Medications Ascorbic Acid (Vitamin C 500 Mg Tab) 500 mg PO DAILY [facility] Aspirin (Ecotrin) 81 mg PO DAILY [facility] Atorvastatin Calcium (Lipitor) 40 mg PO HS [facility] Enoxaparin Sodium (Lovenox) 40 mg SC DAILY [facility] PRN Reason: Protocol Hydralazine HCl (Apresoline) 25 mg IVP STAT [facility] Last Admin: 04/12/18 16:32 Dose: 25 mg Hydralazine HCl (Apresoline) 10 mg IVP Q6 PRN PRN Reason: SBP > 160 OR DBP > 100 Sodium Chloride (Sodium Chloride 0.9%) 1,000 mls @ 150 mls/hr IV .Q6H40M [facility] Insulin Human Lispro (Humalog Low) 0 units SC ACHS [facility] PRN Reason: Protocol Ketorolac Tromethamine (Toradol) 15 mg IVP Q6H PRN PRN Reason: Pain, severe (8-10) Lisinopril (Zestril) 20 mg PO DAILY [facility] Last Admin: 04/12/18 12:24 Dose: 20 mg Ondansetron HCl (Zofran Inj) 4 mg IVP Q6H PRN PRN Reason: Nausea/Vomiting Last Admin: 04/12/18 16:32 Dose: 4 mg Pantoprazole Sodium (Protonix Inj) 40 mg IVP DAILY [facility] Vitamin D (Vitamin D 400 Intl Units Tab) 600 intlu PO DAILY [facility] Family Hx: Diabetes in multiple family members ROS: Nausea and vomiting. No fevers, chills, headaches, dizziness, chest pain, abdominal pain, melena, hematuria, hematemesis, hematochezia, depression, anxiety Past Patient History - Infectious Disease Hx of Infectious Diseases: None - Past Social History Smoking Status: Former Smoker - CARDIAC Hx Cardiac Disorders: No Hx Pacemaker: No - PULMONARY Hx Respiratory Disorders: No - NEUROLOGICAL Hx Neurological Disorder: Yes Other/Comment: neuropathy - HEENT Hx HEENT Problems: No - RENAL Hx Chronic Kidney Disease: No - ENDOCRINE/METABOLIC Hx Diabetes Mellitus Type 1: Yes - HEMATOLOGICAL/ONCOLOGICAL Hx Cancer: No - INTEGUMENTARY Hx Dermatological Problems: Yes Other/Comment: LEFT GREAT TOE DISCOLORED - MUSCULOSKELETAL/RHEUMATOLOGICAL Hx Musculoskeletal Disorders: No - GASTROINTESTINAL Hx Gastrointestinal Disorders: No - GENITOURINARY/GYNECOLOGICAL Hx Genitourinary Disorders: No - PSYCHIATRIC Hx Psychophysiologic Disorder: No Hx Substance Use: No - SURGICAL HISTORY Hx Mastectomy: No - ANESTHESIA Hx Anesthesia Reactions: No Hx Malignant Hyperthermia: No Meds Allergies/Adverse Reactions: Allergies Allergy/AdvReac Type Severity Reaction Status Date / Time No Known Allergies Allergy Verified 04/12/18 12:01 - Medications Medications: Current Medications Ascorbic Acid (Vitamin C 500 Mg Tab) 500 mg PO DAILY [facility] Aspirin (Ecotrin) 81 mg PO DAILY [facility] Atorvastatin Calcium (Lipitor) 40 mg PO HS [facility] Enoxaparin Sodium (Lovenox) 40 mg SC DAILY [facility] PRN Reason: Protocol Hydralazine HCl (Apresoline) 25 mg IVP STAT [facility] Last Admin: 04/12/18 16:32 Dose: 25 mg Hydralazine HCl (Apresoline) 10 mg IVP Q6 PRN PRN Reason: SBP > 160 OR DBP > 100 Sodium Chloride (Sodium Chloride 0.9%) 1,000 mls @ 150 mls/hr IV .Q6H40M [facility] Insulin Human Lispro (Humalog Low) 0 units [facility] PRN Reason: Protocol Ketorolac Tromethamine (Toradol) 15 mg IVP Q6H PRN PRN Reason: Pain, severe (8-10) Lisinopril (Zestril) 20 mg PO DAILY [facility] Last Admin: 04/12/18 12:24 Dose: 20 mg Ondansetron HCl (Zofran Inj) 4 mg IVP Q6H PRN PRN Reason: Nausea/Vomiting Last Admin: 04/12/18 16:32 Dose: 4 mg Pantoprazole Sodium (Protonix Inj) 40 mg IVP DAILY [facility] Vitamin D (Vitamin D 400 Intl Units Tab) 600 intlu PO DAILY [facility] Physical Exam - Constitutional Appears: In Acute Distress, Chronically Ill - Head Exam Head Exam: ATRAUMATIC, NORMOCEPHALIC - Eye Exam Eye Exam: EOMI, PERRL Pupil Exam: NORMAL ACCOMODATION, PERRL - ENT Exam ENT Exam: Mucous Membranes Moist, Normal External Ear Exam, TM's Normal Bilaterally Additional comments: dentition below average to poor. - Neck Exam Neck exam: Positive for: Full Rom, Normal Inspection - Respiratory Exam Respiratory Exam: Clear to Auscultation Bilateral, NORMAL BREATHING PATTERN. absent: Rales, Rhonchi, Wheezes - Cardiovascular Exam Cardiovascular Exam: REGULAR RHYTHM, RRR, +S1, +S2 - GI/Abdominal Exam GI & Abdominal Exam: Hypoactive Bowel Sounds, Normal Bowel Sounds, Soft. absent : Distended, Tenderness - Extremities Exam Extremities exam: Negative for: joint swelling, pedal edema Additional comments: left transmetatarsal resection - Neurological Exam Neurological exam: Alert, CN II-XII Intact, Oriented x3 - Psychiatric Exam Psychiatric exam: Normal Affect, Normal Mood - Skin Skin Exam: Intact, Normal Color Results - Vital Signs Recent Vital Signs: Last Vital Signs Temp 98.2 F 04/12/18 14:40 Pulse 72 04/12/18 16:32 Resp 18 04/12/18 15:58 BP 179/88 H 04/12/18 17:55 Pulse Ox 98 04/12/18 15:58 - Labs Result Diagrams: 04/12/18 08:35 04/12/18 08:35 Labs: Laboratory Results - last 24 hr 04/12/18 04/12/18 04/12/18 13:25 13:25 16:41 ESR Hemoglobin A1c 6.6 H D Direct Bilirubin 0.7 H Troponin I 0.04 0.04 04/12/18 16:41 ESR 118 H Hemoglobin A1c Direct Bilirubin Troponin I Assessment & Plan - Assessment and Plan (Free Text) Assessment: 62 yo male with extensive past medical history that includes HTN, DM, dyslipidemia, CAD, CKD Stage III, and recent diagnosis of Osteomyelitis of the left foot. The patient was on IV Rocephin of 2 grams daily to complete 6 weeks of therapy. He is currently on week 5 of therapy of the Rocephin. The patient had severely elevated Lipase values to 1056. Question of Pancreatitis at this point. No prior history of Pancreatitis. ESR with significant elevation to 118. Bilirubin mildly elevated. AST and ALT normal. HIV negative. Hepatitis studies pending. Consider Plain X-ray of abdomen or CT without contrast of abdomen. No leukocytosis. Hold all antibiotics at this time. Monitor fever and WBC trend. Monitor ESR trend. Thank you for allowing me to participate in the care of the patient, we will follow with you.
[2018-04-12 21:25] LABS: HEPATITIS B SURFACE AG Negative (NEGATIVE)
[2018-04-12 21:30] LABS: HEPATITIS A IGM NEGATIVE (NEGATIVE)
[2018-04-12 21:42] LABS: HEPATITIS C ANTIBODY NEGATIVE (NEGATIVE)
[2018-04-12 22:17] LABS: HEPATITIS B CORE AB NEGATIVE (NEGATIVE)
[2018-04-12 23:23] LABS: BARBITURATES, UR NEGATIVE (NEGATIVE); BENZODIAZEPINES, UR NEGATIVE (NEGATIVE); OPIATES, UR NEGATIVE (NEGATIVE); PHENCYCLIDINE, UR NEGATIVE (NEGATIVE)
[2018-04-13] MEDS: Sodium Chloride 0.9% 1,000 ML IV SCH ×3 (04:00→23:16)
[2018-04-13 07:00] LABS: BASO # 0.01 K/mm3 (0.0-2.0); BASO % 0.1 % (0.0-3.0); EOS % 0.1 % (1.5-5.0); GRAN # 7.56 (1.4-6.5); GRAN % 80.1 % (50.0-68.0); HEMOGLOBIN 10.1 g/dL (14.0-18.0); LYMPH # 1.3 (1.2-3.4); LYMPH % 13.3 % (22.0-35.0); MEAN CELL VOLUME 87.7 fl (80.0-105.0); MEAN CORPUSCULAR HEMOGLOBIN 29.6 pg (25.0-35.0); MEAN CORPUSCULAR HGB CONC 33.8 g/dl (31.0-37.0); MONO # 0.6 (0.1-0.6); MONO % 6.4 % (1.0-6.0); RBC 3.41 10^6/uL (3.5-6.1); RED CELL DISTRIBUTION WIDTH 13.9 % (11.5-14.5); WHITE BLOOD COUNT 9.4 10^3/ul (4.5-11.0)
[2018-04-13 07:35] LABS: ALB/GLOB RATIO 1.1 (1.1-1.8); ALBUMIN 3.7 g/dL (3.0-4.8); ALT/SGPT 41 U/L (7-56); AST/SGOT 16 U/L (17-59); BLOOD UREA NITROGEN 28 mg/dL (7-21); CALCIUM 8.6 mg/dL (8.4-10.5); GFR NON-AFRICAN AMERICAN > 60; HDL CHOLESTEROL 26 mg/dL (29-60)
[2018-04-13 07:42] LABS: LDL CHOLESTEROL 71 mg/dL (0-129)
[2018-04-13] MEDS: Insulin Lispro (humaLOG) LOW Coverage SC SCH ×3 (08:26→12:01)
--- NOTE | 2018-04-13 08:44 | CP.PCM.PN ---
Subjective - Date & Time of Evaluation Date of Evaluation: 04/13/18 Time of Evaluation: 08:40 - Subjective Subjective: Vinicius Rivera PGY-1 medicine progress note for Dr Rousseau. Pt seen and examined at bedside this morning. Pt sitting in chair upon arrival, spitting into emesis bucket, complaining of nausea, denies abdominal pain. Objective - Vital Signs/Intake and Output Vital Signs (last 24 hours): Temp Pulse Resp BP Pulse Ox 98.8 F 71 20 177/93 H 99 04/13/18 06:00 04/13/18 06:00 04/13/18 06:00 04/13/18 06:38 04/13/18 06:00 Intake and Output: 04/13/18 04/13/18 06:59 18:59 Intake Total 1600 Balance 1600 - Medications Medications: Current Medications Ascorbic Acid (Vitamin C 500 Mg Tab) 500 mg PO DAILY [facility] Aspirin (Ecotrin) 81 mg PO DAILY [facility] Atorvastatin Calcium (Lipitor) 40 mg PO HS [facility] Last Admin: 04/12/18 22:12 Dose: Not Given Enoxaparin Sodium (Lovenox) 40 mg SC DAILY [facility] PRN Reason: Protocol Hydralazine HCl (Apresoline) 25 mg IVP STAT [facility] Last Admin: 04/12/18 16:32 Dose: 25 mg Hydralazine HCl (Apresoline) 10 mg IVP Q6 PRN PRN Reason: SBP > 160 OR DBP > 100 Last Admin: 04/13/18 05:28 Dose: 10 mg Sodium Chloride (Sodium Chloride 0.9%) 1,000 mls @ 150 mls/hr IV .Q6H40M [facility] Last Admin: 04/13/18 04:00 Dose: 150 mls/hr Insulin Human Lispro (Humalog Low) 0 units SC ACHS [facility] PRN Reason: Protocol Last Admin: 04/13/18 08:26 Dose: Not Given Ketorolac Tromethamine (Toradol) 15 mg IVP Q6H PRN PRN Reason: Pain, severe (8-10) Lisinopril (Zestril) 20 mg PO DAILY [facility] Last Admin: 04/12/18 12:24 Dose: 20 mg Metoclopramide HCl (Reglan) 10 mg IVP ONCE ONE Stop: 04/13/18 08:40 Ondansetron HCl (Zofran Inj) 4 mg IVP Q6H PRN PRN Reason: Nausea/Vomiting Last Admin: 04/13/18 05:26 Dose: 4 mg Pantoprazole Sodium (Protonix Inj) 40 mg IVP DAILY [facility] Vitamin D (Vitamin D 400 Intl Units Tab) 600 intlu PO DAILY [facility] - Labs Labs: 04/13/18 06:00 04/13/18 06:00 - Constitutional Appears: No Acute Distress - Head Exam Head Exam: ATRAUMATIC, NORMOCEPHALIC - Eye Exam Eye Exam: EOMI - ENT Exam ENT Exam: Mucous Membranes Moist - Neck Exam Neck Exam: Full ROM - Respiratory Exam Respiratory Exam: Clear to Ausculation Bilateral, NORMAL BREATHING PATTERN. absent: Accessory Muscle Use, Rhonchi, Wheezes, Respiratory Distress, Stridor - Cardiovascular Exam Cardiovascular Exam: REGULAR RHYTHM, RRR, +S1, +S2. absent: Diastolic murmur, Irregular Rhythm, JVD, Murmur - GI/Abdominal Exam GI & Abdominal Exam: Soft, Normal Bowel Sounds. absent: Distended, Firm, Guarding, Rigid, Tenderness - Back Exam Back Exam: Full ROM, NORMAL INSPECTION. absent: CVA tenderness (L), CVA tenderness (R), muscle spasm - Neurological Exam Neurological Exam: Alert, Awake, Oriented x3 - Psychiatric Exam Psychiatric exam: Normal Affect, Normal Mood - Skin Skin Exam: Dry, Normal Color, Warm Assessment and Plan - Assessment and Plan (Free Text) Assessment: Pt is a 62 yo male with a PMH of DM II, CAD, and osteomyelitis who presents with 2 days of nausea, vomiting, on IV Rocephin 2 grams daily for 5 weeks. Plan: Vomiting, possible pancreatitis - HgbA1c 6.6 - possible side effect of Rocephin, hold at this time - Abdominal US: unremarkable, pancreas appears mildly atrophic without pancreatic dilation or definitive mass - CT abdomen and pelvis: mild perinephric stranding - Liquid diet - NS 75 ml/hr - GI following, Dr Chapman - Serum alcohol- negative - lipid panel- WNL - urine drug screen- negative - WBC 9.4 - UA: glucose> 500, ketones 15, CRP 200, Lipase 1056 - Hep panel negative - Zofran, Toradol - ISS Osteomyelitis - ID following, Dr. Oates - Podiatry consulted, Dr. Cox - hold antibiotics at this time Hypertension - Hydralazine - Amlodipine - Lisinopril Ppx - Lovenox - Protonix Pt seen, examined, and assessment/ plan discussed with Dr Soham Rivera PGY1
[2018-04-13] MEDS: Enoxaparin 40 mg Syringe SC SCH (09:44)
--- NOTE | 2018-04-13 09:49 | CP.PCM.PN ---
<Ashley Granado - Last Filed: 04/13/18 09:49> Subjective - Date & Time of Evaluation Date of Evaluation: 04/13/18 Time of Evaluation: 08:00 - Subjective Subjective: GI Fellow PGY5 Progress Note Pt seen and evaluated at bedside, pt still with nausea and hiccups but no vomiting this am. He denies any abdominal pain. No BM in three days, pt reports since he is not eating. ROS: A 12pt ROS was negative except as above Objective - Vital Signs/Intake and Output Vital Signs (last 24 hours): Temp Pulse Resp BP Pulse Ox 98.8 F 71 20 177/93 H 99 04/13/18 06:00 04/13/18 06:00 04/13/18 06:00 04/13/18 06:38 04/13/18 06:00 Intake and Output: 04/13/18 04/13/18 06:59 18:59 Intake Total 1600 Balance 1600 - Medications Medications: Current Medications Ascorbic Acid (Vitamin C 500 Mg Tab) 500 mg PO DAILY [facility] Aspirin (Ecotrin) 81 mg PO DAILY [facility] Atorvastatin Calcium (Lipitor) 40 mg PO HS [facility] Last Admin: 04/12/18 22:12 Dose: Not Given Enoxaparin Sodium (Lovenox) 40 mg SC DAILY [facility] PRN Reason: Protocol Hydralazine HCl (Apresoline) 25 mg IVP STAT [facility] Last Admin: 04/12/18 16:32 Dose: 25 mg Hydralazine HCl (Apresoline) 10 mg IVP Q6 PRN PRN Reason: SBP > 160 OR DBP > 100 Last Admin: 04/13/18 05:28 Dose: 10 mg Sodium Chloride (Sodium Chloride 0.9%) 1,000 mls @ 150 mls/hr IV .Q6H40M [facility] Last Admin: 04/13/18 04:00 Dose: 150 mls/hr Insulin Human Lispro (Humalog Low) 0 units SC ACHS [facility] PRN Reason: Protocol Last Admin: 04/13/18 08:26 Dose: Not Given Ketorolac Tromethamine (Toradol) 15 mg IVP Q6H PRN PRN Reason: Pain, severe (8-10) Lisinopril (Zestril) 20 mg PO DAILY [facility] Last Admin: 04/12/18 12:24 Dose: 20 mg Ondansetron HCl (Zofran Inj) 4 mg IVP Q6H PRN PRN Reason: Nausea/Vomiting Last Admin: 04/13/18 05:26 Dose: 4 mg Pantoprazole Sodium (Protonix Inj) 40 mg IVP DAILY [facility] Vitamin D (Vitamin D 400 Intl Units Tab) 600 intlu PO DAILY [facility] - Labs Labs: 04/13/18 06:00 04/13/18 06:00 - Constitutional Appears: Non-toxic, No Acute Distress - Head Exam Head Exam: ATRAUMATIC, NORMAL INSPECTION, NORMOCEPHALIC - Eye Exam Eye Exam: EOMI, Normal appearance, PERRL Pupil Exam: PERRL - ENT Exam ENT Exam: Mucous Membranes Moist - Neck Exam Neck Exam: Full ROM, Normal Inspection - Respiratory Exam Respiratory Exam: Clear to Ausculation Bilateral, NORMAL BREATHING PATTERN - Cardiovascular Exam Cardiovascular Exam: REGULAR RHYTHM, RRR, +S1, +S2 - GI/Abdominal Exam GI & Abdominal Exam: Soft, Normal Bowel Sounds - Extremities Exam Extremities Exam: Full ROM, Normal Inspection - Back Exam Back Exam: NORMAL INSPECTION - Neurological Exam Neurological Exam: Alert, Awake, Oriented x3 - Psychiatric Exam Psychiatric exam: Normal Affect, Normal Mood - Skin Skin Exam: Dry, Intact, Normal Color, Warm Assessment and Plan - Assessment and Plan (Free Text) Assessment: This is a 62yM presenting with complaints of intractable N/V. 1. Intractable nausea and vomiting 2. Abdominal pain 3. Elevated Lipase 4. Elevated LFTs 5. Osteomyelitis s/p TMA on IV Rocephin wk6 Plan: -Continue supportive care with pain control and anti-emetics -Advance to clear liquid diet -Abd US negative for gallstones -Abdominal pain not characteristics of pancreatitis -No CT imaging ordered due to CKD -Symptoms maybe from abx use vs gastroeneteritis -Lipase elevation is nonspecific -Lipid profile, serum etoh and UDS negative -Hepatitis panel negative -Elevated LFTs maybe from abx use, trending down -PPI daily -IVF hydration @150cc/hr -Ordered blood cultures from venous and picc line to r/o bacteremia -No indication to add any further abx therapy -Will continue to monitor closely <Ephraim Novoa - Last Filed: 04/13/18 12:07> Objective - Vital Signs/Intake and Output Vital Signs (last 24 hours): Temp Pulse Resp BP Pulse Ox 98.8 F 71 20 177/93 H 99 04/13/18 06:00 04/13/18 06:00 04/13/18 06:00 04/13/18 06:38 04/13/18 06:00 Intake and Output: 04/13/18 04/13/18 06:59 18:59 Intake Total 1600 Balance 1600 - Medications Medications: Current Medications Amlodipine Besylate (Norvasc) 10 mg PO DAILY [facility] Ascorbic Acid (Vitamin C 500 Mg Tab) 500 mg PO DAILY [facility] Last Admin: 04/13/18 09:51 Dose: Not Given Aspirin (Ecotrin) 81 mg PO DAILY [facility] Atorvastatin Calcium (Lipitor) 40 mg PO HS [facility] Last Admin: 04/12/18 22:12 Dose: Not Given Enoxaparin Sodium (Lovenox) 40 mg SC DAILY [facility] PRN Reason: Protocol Last Admin: 04/13/18 09:44 Dose: 40 mg Hydralazine HCl (Apresoline) 25 mg IVP STAT [facility] Last Admin: 04/12/18 16:32 Dose: 25 mg Hydralazine HCl (Apresoline) 10 mg IVP Q6 PRN PRN Reason: SBP > 160 OR DBP > 100 Last Admin: 04/13/18 05:28 Dose: 10 mg Sodium Chloride (Sodium Chloride 0.9%) 1,000 mls @ 150 mls/hr IV .Q6H40M [facility] Last Admin: 04/13/18 09:43 Dose: 150 mls/hr Insulin Human Lispro (Humalog Low) 0 units SC ACHS [facility] PRN Reason: Protocol Last Admin: 04/13/18 08:26 Dose: Not Given Ketorolac Tromethamine (Toradol) 15 mg IVP Q6H PRN PRN Reason: Pain, severe (8-10) Lisinopril (Zestril) 20 mg PO DAILY [facility] Last Admin: 04/12/18 12:24 Dose: 20 mg Ondansetron HCl (Zofran Inj) 4 mg IVP Q6H PRN PRN Reason: Nausea/Vomiting Last Admin: 04/13/18 05:26 Dose: 4 mg Pantoprazole Sodium (Protonix Inj) 40 mg IVP DAILY [facility] Last Admin: 04/13/18 09:44 Dose: 40 mg Vitamin D (Vitamin D 400 Intl Units Tab) 600 intlu PO DAILY [facility] Last Admin: 04/13/18 09:51 Dose: Not Given - Labs Labs: 04/13/18 06:00 04/13/18 06:00 Attending/Attestation - Attestation I have personally seen and examined this patient.: Yes I have fully participated in the care of the patient.: Yes I have reviewed all pertinent clinical information, including history, physical exam and plan: Yes Notes (Text): 04/13/18 12:06 This is a 62 yr old M presenting with complaints of intractable N/V with elevated lipase and LFT, sonogram pending. Recent antibiotics for osteomyelitis may have contributed to the above. Sonogram unremarkable. Hepatitis profile and supportive care.
[2018-04-13] MEDS: Cholecalciferol 400 Intl Units Tab PO SCH (09:51)
[2018-04-13] MEDS ORDERED: CEFTRIAXONE IVPB SCH (10:00)
[2018-04-13] MEDS ORDERED: cefTRIAXone 2 gm in NS 100ml IVPB SCH (10:00)
--- NOTE | 2018-04-13 10:11 | CARD ---
APPROVED REPORT Date of service: 04/12/2018 EKG Measurement Heart [id number] <Conclusion> Sinus bradycardia Otherwise normal ECG
--- NOTE | 2018-04-13 11:23 | CT ---
Date of service: 04/13/2018 PROCEDURE: CT Abdomen and Pelvis without intravenous contrast HISTORY: rule out pancreatitis COMPARISON: None. TECHNIQUE: Without contrast.. Contrast dose: Radiation dose: Total exam DLP = 558 mGy-cm. This CT exam was performed using one or more of the following dose reduction techniques: Automated exposure control, adjustment of the mA and/or kV according to patient size, and/or use of iterative reconstruction technique. FINDINGS: LOWER THORAX: Unremarkable. LIVER: Unremarkable. No gross lesion or ductal dilatation. GALLBLADDER AND BILE DUCTS: Unremarkable. PANCREAS: Unremarkable. No gross lesion or ductal dilatation. No evidence of pancreatitis SPLEEN: Unremarkable. ADRENALS: Unremarkable. No mass. KIDNEYS AND URETERS: There is minimal perinephric stranding bilaterally which could be secondary to pyelonephritis. Clinical correlation is suggested. VASCULATURE: Unremarkable. No aortic aneurysm. BOWEL: Unremarkable. No obstruction. No gross mural thickening. APPENDIX: Unremarkable. Normal appendix. PERITONEUM: Unremarkable. No free fluid. No free air. LYMPH NODES: Unremarkable. No enlarged lymph nodes. BLADDER: Unremarkable. REPRODUCTIVE: Unremarkable. BONES: No acute fracture. OTHER FINDINGS: None. IMPRESSION: There is minimal perinephric stranding bilaterally which could be secondary to pyelonephritis. Clinical correlation is suggested. No evidence of pancreatitis
[2018-04-13 12:34] LABS: URINE BILIRUBIN SMALL (NEGATIVE); URINE BLOOD SMALL (NEGATIVE); URINE GLUCOSE (UA) 500 mg/dL (NEGATIVE); URINE LEUKOCYTE ESTERASE NEGATIVE Leu/uL (NEGATIVE); URINE PROTEIN >=300 mg/dL (<30 mg/dL); URINE UROBILINOGEN 0.2 E.U./dL (<1 E.U./dL)
[2018-04-13 12:39] LABS: URINE APPEARANCE CLEAR (CLEAR); URINE COLOR YELLOW (YELLOW)
[2018-04-13 12:50] LABS: URINE BACTERIA MANY (NEG)
[2018-04-13 12:51] LABS: URINE AMORPHOUS SEDIMENT FEW; URINE FINE GRANULAR CAST 0 - 2 /hpf (0-2)
--- NOTE | 2018-04-13 14:23 | CP.PCM.CON ---
History of Present Illness - History of Present Illness History of Present Illness: Podiatry Consult Note - Dr. Jauregui 62 year old male patient seen and evaluated at bedside. Patient admitted for intractable N/V + abdominal pain since Wednesday; found to have elevated lipase and LFTs. Podiatry consulted for continued care of left transmetatarsal amputation (DOS 02/24/18). Patient states he has been following up with Dr. Jauregui in office as outpatient for continued care to wound remaining on surgical site. Patient states he has been on IV abx (Rocephin) for the past 5 weeks for treatment of osteomyelitis, with plan for a total of 6 weeks of abx. At present , patient offers no complaints to LLE with no pain noted. Patient has kept dressing on LLE and ambulates with assistance of crutches. Patient admits to continued nausea and hiccups but denies vomiting or abdominal pain. Hx of GERD. PMH:HTN, DM Type II, Osteomyelitis, Dyslipidemia, CAD PSH: left foot TMA All: NKDA Soc: former cigarette smoker (10 pack/year history); hx EtOH abuse; denies illicit drug use Review of Systems - Review of Systems All systems: reviewed and no additional remarkable complaints except (as per HPI ) Past Patient History - Infectious Disease Hx of Infectious Diseases: None - Past Social History Smoking Status: Former Smoker - CARDIAC Hx Cardiac Disorders: No Hx Pacemaker: No - PULMONARY Hx Respiratory Disorders: No - NEUROLOGICAL Hx Neurological Disorder: Yes Other/Comment: neuropathy - HEENT Hx HEENT Problems: No - RENAL Hx Chronic Kidney Disease: No - ENDOCRINE/METABOLIC Hx Diabetes Mellitus Type 1: Yes - HEMATOLOGICAL/ONCOLOGICAL Hx Cancer: No - INTEGUMENTARY Hx Dermatological Problems: Yes Other/Comment: LEFT GREAT TOE DISCOLORED - MUSCULOSKELETAL/RHEUMATOLOGICAL Hx Musculoskeletal Disorders: No - GASTROINTESTINAL Hx Gastrointestinal Disorders: No - GENITOURINARY/GYNECOLOGICAL Hx Genitourinary Disorders: No - PSYCHIATRIC Hx Psychophysiologic Disorder: No Hx Substance Use: No - SURGICAL HISTORY Hx Mastectomy: No - ANESTHESIA Hx Anesthesia Reactions: No Hx Malignant Hyperthermia: No Meds Allergies/Adverse Reactions: Allergies Allergy/AdvReac Type Severity Reaction Status Date / Time No Known Allergies Allergy Verified 04/12/18 12:01 - Medications Medications: Current Medications Amlodipine Besylate (Norvasc) 10 mg PO DAILY [facility] Last Admin: 04/13/18 12:10 Dose: 10 mg Ascorbic Acid (Vitamin C 500 Mg Tab) 500 mg PO DAILY [facility] Last Admin: 04/13/18 09:51 Dose: Not Given Aspirin (Ecotrin) 81 mg PO DAILY [facility] Atorvastatin Calcium (Lipitor) 40 mg PO HS [facility] Last Admin: 04/12/18 22:12 Dose: Not Given Enoxaparin Sodium (Lovenox) 40 mg SC DAILY [facility] PRN Reason: Protocol Last Admin: 04/13/18 09:44 Dose: 40 mg Hydralazine HCl (Apresoline) 25 mg IVP STAT [facility] Last Admin: 04/12/18 16:32 Dose: 25 mg Hydralazine HCl (Apresoline) 10 mg IVP Q6 PRN PRN Reason: SBP > 160 OR DBP > 100 Last Admin: 04/13/18 05:28 Dose: 10 mg Sodium Chloride (Sodium Chloride 0.9%) 1,000 mls @ 150 mls/hr IV .Q6H40M [facility] Last Admin: 04/13/18 09:43 Dose: 150 mls/hr Insulin Human Regular (Humulin R High) 0 units SC ACHS [facility] PRN Reason: Protocol Ketorolac Tromethamine (Toradol) 15 mg IVP Q6H PRN PRN Reason: Pain, severe (8-10) Lisinopril (Zestril) 20 mg PO DAILY [facility] Last Admin: 04/12/18 12:24 Dose: 20 mg Ondansetron HCl (Zofran Inj) 4 mg IVP Q6H PRN PRN Reason: Nausea/Vomiting Last Admin: 04/13/18 05:26 Dose: 4 mg Pantoprazole Sodium (Protonix Inj) 40 mg IVP DAILY [facility] Last Admin: 04/13/18 09:44 Dose: 40 mg Vitamin D (Vitamin D 400 Intl Units Tab) 600 intlu PO DAILY [facility] Last Admin: 04/13/18 09:51 Dose: Not Given Physical Exam - Constitutional Appears: Well, Non-toxic, No Acute Distress - Extremities Exam Additional comments: Dressing to LLE clean/dry/intact LLE focused exam: Vasc: DP pulse palpable 1/4, PT pulse non palpable. Temperature gradient cool to cool. Capillary fill time good to TMA flap. Minimal nonpitting edema noted. Neuro: Protective sensation diminished. Derm: Full thickness ulceration measuring approximately 3.5 x 3.5 x 0.1 cm noted to distal-lateral aspecto of TMA flap extending down to subcutaneous tissue - ulcer noted to have 90% fibrous and 10% granular base with hyperkeratotic rim; minimal serosanguinous drainage; no purulence; no fluctuance ; no undermining; no tunneling; no probe to bone; no malodor; no clinical signs of infection present. Ortho: S/p transmetatarsal amputation. No tenderness to palpation amputation site. - Neurological Exam Neurological exam: Alert, Oriented x3 - Psychiatric Exam Psychiatric exam: Normal Affect, Normal Mood Results - Vital Signs Recent Vital Signs: Last Vital Signs Temp 98.8 F 04/13/18 06:00 Pulse 71 04/13/18 06:00 Resp 20 04/13/18 06:00 BP 199/100 H 04/13/18 12:10 Pulse Ox 99 04/13/18 06:00 - Labs Result Diagrams: 04/13/18 06:00 04/13/18 06:00 Labs: Laboratory Results - last 24 hr 04/12/18 04/12/18 04/12/18 13:25 16:41 16:41 WBC RBC Hgb Hct MCV MCH MCHC RDW Plt Count MPV Gran % Lymph % (Auto) [place] % (Auto) Eos % (Auto) Baso % (Auto) Gran # Lymph # (Auto) [place] # (Auto) Eos # (Auto) Baso # (Auto) ESR 118 H Sodium Potassium Chloride Carbon Dioxide Anion Gap BUN Creatinine Est GFR ( Amer) Est GFR (Non-Af Amer) POC Glucose (mg/dL) Random Glucose Hemoglobin A1c 6.6 H D Calcium Phosphorus Magnesium Total Bilirubin Direct Bilirubin 0.7 H AST ALT Alkaline Phosphatase Troponin I 0.04 C-Reactive Protein Total Protein Albumin Globulin Albumin/Globulin Ratio Triglycerides Cholesterol LDL Cholesterol Direct HDL Cholesterol Urine Color Urine Appearance Urine pH Ur Specific [place] Urine Protein Urine Glucose (UA) Urine Ketones Urine Blood Urine Nitrate Urine Bilirubin Urine Urobilinogen Ur Leukocyte Esterase Urine RBC Urine WBC Ur Epithelial Cells Amorphous Sediment Urine Bacteria Fine Granular Casts Urine Opiates Screen Urine Methadone Screen Ur Barbiturates Screen Ur Phencyclidine Scrn Ur Amphetamines Screen U Benzodiazepines Scrn U Oth Cocaine Metabols U Cannabinoids Screen Hepatitis A IgM Ab Hep Bs Antigen Hep B Core IgM Ab Hepatitis C Antibody 04/12/18 04/12/18 04/12/18 16:41 16:41 22:15 WBC RBC Hgb Hct MCV MCH MCHC RDW Plt Count MPV Gran % Lymph % (Auto) [place] % (Auto) Eos % (Auto) Baso % (Auto) Gran # Lymph # (Auto) [place] # (Auto) Eos # (Auto) Baso # (Auto) ESR Sodium Potassium Chloride Carbon Dioxide Anion Gap BUN Creatinine Est GFR ( Amer) Est GFR (Non-Af Amer) POC Glucose (mg/dL) 255 H Random Glucose Hemoglobin A1c Calcium Phosphorus Magnesium Total Bilirubin Direct Bilirubin AST ALT Alkaline Phosphatase Troponin I C-Reactive Protein 200.20 H Total Protein Albumin Globulin Albumin/Globulin Ratio Triglycerides Cholesterol LDL Cholesterol Direct HDL Cholesterol Urine Color Urine Appearance Urine pH Ur Specific [place] Urine Protein Urine Glucose (UA) Urine Ketones Urine Blood Urine Nitrate Urine Bilirubin Urine Urobilinogen Ur Leukocyte Esterase Urine RBC Urine WBC Ur Epithelial Cells Amorphous Sediment Urine Bacteria Fine Granular Casts Urine Opiates Screen Urine Methadone Screen Ur Barbiturates Screen Ur Phencyclidine Scrn Ur Amphetamines Screen U Benzodiazepines Scrn U Oth Cocaine Metabols U Cannabinoids Screen Hepatitis A IgM Ab Negative Hep Bs Antigen Negative Hep B Core IgM Ab Negative Hepatitis C Antibody Negative 04/12/18 04/13/18 04/13/18 22:52 06:00 06:00 WBC 9.4 RBC 3.41 L Hgb 10.1 L Hct 29.9 L MCV 87.7 MCH 29.6 MCHC 33.8 RDW 13.9 Plt Count 169 MPV 10.0 Gran % 80.1 H Lymph % (Auto) 13.3 L [place] % (Auto) 6.4 H Eos % (Auto) 0.1 L Baso % (Auto) 0.1 Gran # 7.56 H Lymph # (Auto) 1.3 [place] # (Auto) 0.6 Eos # (Auto) 0.0 Baso # (Auto) 0.01 ESR Sodium 141 Potassium 3.7 Chloride 105 Carbon Dioxide 22 Anion Gap 18 BUN 28 H Creatinine 1.1 Est GFR ( Amer) > 60 Est GFR (Non-Af Amer) > 60 POC Glucose (mg/dL) Random Glucose 262 H Hemoglobin A1c Calcium 8.6 Phosphorus Magnesium Total Bilirubin 0.9 Direct Bilirubin AST 16 L D ALT 41 Alkaline Phosphatase 251 H Troponin I C-Reactive Protein Total Protein 7.1 Albumin 3.7 Globulin 3.4 Albumin/Globulin Ratio 1.1 Triglycerides 100 Cholesterol 131 LDL Cholesterol Direct 71 HDL Cholesterol 26 L Urine Color Urine Appearance Urine pH Ur Specific [place] Urine Protein Urine Glucose (UA) Urine Ketones Urine Blood Urine Nitrate Urine Bilirubin Urine Urobilinogen Ur Leukocyte Esterase Urine RBC Urine WBC Ur Epithelial Cells Amorphous Sediment Urine Bacteria Fine Granular Casts Urine Opiates Screen Negative Urine Methadone Screen Negative Ur Barbiturates Screen Negative Ur Phencyclidine Scrn Negative Ur Amphetamines Screen Negative U Benzodiazepines Scrn Negative U Oth Cocaine Metabols Negative U Cannabinoids Screen Negative Hepatitis A IgM Ab Hep Bs Antigen Hep B Core IgM Ab Hepatitis C Antibody 04/13/18 04/13/18 06:00 12:00 WBC RBC Hgb Hct MCV MCH MCHC RDW Plt Count MPV Gran % Lymph % (Auto) [place] % (Auto) Eos % (Auto) Baso % (Auto) Gran # Lymph # (Auto) [place] # (Auto) Eos # (Auto) Baso # (Auto) ESR Sodium Potassium Chloride Carbon Dioxide Anion Gap BUN Creatinine Est GFR ( Amer) Est GFR (Non-Af Amer) POC Glucose (mg/dL) Random Glucose Hemoglobin A1c Calcium Phosphorus 4.0 Magnesium 2.4 H Total Bilirubin Direct Bilirubin AST ALT Alkaline Phosphatase Troponin I C-Reactive Protein Total Protein Albumin Globulin Albumin/Globulin Ratio Triglycerides Cholesterol LDL Cholesterol Direct HDL Cholesterol Urine Color Yellow Urine Appearance Clear Urine pH 6.0 Ur Specific [place] >= 1.030 Urine Protein >=300 H Urine Glucose (UA) 500 H Urine Ketones 15 H Urine Blood Small H Urine Nitrate Negative Urine Bilirubin Small H Urine Urobilinogen 0.2 Ur Leukocyte Esterase Negative Urine RBC 5 - 10 Urine WBC 1 - 3 Ur Epithelial Cells None Amorphous Sediment Few Urine Bacteria Many Fine Granular Casts 0 - 2 Urine Opiates Screen Urine Methadone Screen Ur Barbiturates Screen Ur Phencyclidine Scrn Ur Amphetamines Screen U Benzodiazepines Scrn U Oth Cocaine Metabols U Cannabinoids Screen Hepatitis A IgM Ab Hep Bs Antigen Hep B Core IgM Ab Hepatitis C Antibody Assessment & Plan - Assessment and Plan (Free Text) Assessment: 62 y/o male 7 weeks s/p left transmetarsal amputation with chronic ulceration Plan: Patient seen and evaluated at bedside Discussed with attending, Dr. Jauregui TMA + ulceration appear stable w/no signs of infection, will continue to monitor Wound cleansed with saline and dressed with DSD Activity: WBAT LLE with the assistance of crutches Continue PT/OT Per ID, hold abx Podiatry will continue to follow
--- NOTE | 2018-04-13 15:47 | CP.PCM.PN ---
Subjective - Date & Time of Evaluation Date of Evaluation: 04/13/18 Time of Evaluation: 15:00 - Subjective Subjective: Infectious Disease Follow Up: April 13, 2018 62 yo male with PMHx of DM, CAD, HTN, dyslipidemia, and history of Left heel osteomyelitis that ultimately required left transmetatarsal resection. The patient was still on IV Rocephin for treatment of osteomyelitis with MSSA. The patient was on week 5 of therapy. He began to have intractable nausea and vomiting for the past 2 days. The patient has known noncompliance with his diabetic treatment. He is currently complaining that he cannot swallow his blood pressure medications. The patient has known issues with GERDs as well. ESR has increased drastically to 118 from 27 a week ago. Lipase was found to be 1056. Unremarkable ultrasound of the gallbladder/abdomen. Nausea still. The patient still has not had any bowel movements. Objective - Vital Signs/Intake and Output Vital Signs (last 24 hours): Temp Pulse Resp BP Pulse Ox 99.7 F H 81 20 144/83 100 04/13/18 14:00 04/13/18 14:00 04/13/18 14:00 04/13/18 14:00 04/13/18 14:00 Intake and Output: 04/13/18 04/13/18 06:59 18:59 Intake Total 1600 Balance 1600 - Medications Medications: Current Medications Amlodipine Besylate (Norvasc) 10 mg PO DAILY [facility] Last Admin: 04/13/18 12:10 Dose: 10 mg Ascorbic Acid (Vitamin C 500 Mg Tab) 500 mg PO DAILY [facility] Last Admin: 04/13/18 09:51 Dose: Not Given Aspirin (Ecotrin) 81 mg PO DAILY [facility] Atorvastatin Calcium (Lipitor) 40 mg PO HS [facility] Last Admin: 04/12/18 22:12 Dose: Not Given Enoxaparin Sodium (Lovenox) 40 mg SC DAILY [facility] PRN Reason: Protocol Last Admin: 04/13/18 09:44 Dose: 40 mg Hydralazine HCl (Apresoline) 25 mg IVP STAT [facility] Last Admin: 04/12/18 16:32 Dose: 25 mg Hydralazine HCl (Apresoline) 10 mg IVP Q6 PRN PRN Reason: SBP > 160 OR DBP > 100 Last Admin: 04/13/18 05:28 Dose: 10 mg Sodium Chloride (Sodium Chloride 0.9%) 1,000 mls @ 150 mls/hr IV .Q6H40M [facility] Last Admin: 04/13/18 09:43 Dose: 150 mls/hr Insulin Human Regular (Humulin R High) 0 units SC ACHS [facility] PRN Reason: Protocol Ketorolac Tromethamine (Toradol) 15 mg IVP Q6H PRN PRN Reason: Pain, severe (8-10) Lisinopril (Zestril) 20 mg PO DAILY [facility] Last Admin: 04/12/18 12:24 Dose: 20 mg Ondansetron HCl (Zofran Inj) 4 mg IVP Q6H PRN PRN Reason: Nausea/Vomiting Last Admin: 04/13/18 14:49 Dose: 4 mg Pantoprazole Sodium (Protonix Inj) 40 mg IVP DAILY [facility] Last Admin: 04/13/18 09:44 Dose: 40 mg Vitamin D (Vitamin D 400 Intl Units Tab) 600 intlu PO DAILY [facility] Last Admin: 04/13/18 09:51 Dose: Not Given - Labs Labs: 04/13/18 06:00 04/13/18 06:00 - Constitutional Appears: No Acute Distress, Chronically Ill - Head Exam Head Exam: ATRAUMATIC, NORMOCEPHALIC - Eye Exam Eye Exam: EOMI, PERRL Pupil Exam: NORMAL ACCOMODATION, PERRL - ENT Exam ENT Exam: Mucous Membranes Moist, Normal External Ear Exam, TM's Normal Bilaterally Additional comments: dentition below average to poor. - Neck Exam Neck Exam: Full ROM, Normal Inspection - Respiratory Exam Respiratory Exam: Clear to Ausculation Bilateral, NORMAL BREATHING PATTERN. absent: Rales, Rhonchi, Wheezes - Cardiovascular Exam Cardiovascular Exam: REGULAR RHYTHM, RRR, +S1, +S2 - GI/Abdominal Exam GI & Abdominal Exam: Soft, Hypoactive Bowel Sounds. absent: Distended, Tenderness - Extremities Exam Extremities Exam: absent: Joint Swelling, Pedal Edema Additional comments: left transmetatarsal resection - Neurological Exam Neurological Exam: Alert, Awake, CN II-XII Intact, Oriented x3 - Psychiatric Exam Psychiatric exam: Normal Affect, Normal Mood - Skin Skin Exam: Normal Color Assessment and Plan - Assessment and Plan (Free Text) Assessment: 62 yo male with extensive past medical history that includes HTN, DM, dyslipidemia, CAD, CKD Stage III, and recent diagnosis of Osteomyelitis of the left foot. The patient was on IV Rocephin of 2 grams daily to complete 6 weeks of therapy. He is currently on week 5 of therapy of the Rocephin. The patient had severely elevated Lipase values to 1056. Question of Pancreatitis at this point. No prior history of Pancreatitis. ESR with significant elevation to 118. C-Reactive protein of 200 now. Still nausea at this time. Bilirubin mildly elevated. AST and ALT normal. HIV negative. Hepatitis studies negative. Consider Plain X-ray of abdomen or CT without contrast of abdomen. No leukocytosis. CT abdomen does not show pancreatitis but shows minimal perinephric stranding bilaterally. Hold all antibiotics at this time. Monitor fever and WBC trend. Monitor ESR trend. Thank you for allowing me to participate in the care of the patient, we will follow with you.
[2018-04-13] MEDS: Insulin Reg-HIGH-Coverage SC SCH ×2 (17:15→22:00)
--- NOTE | 2018-04-14 06:17 | CP.PCM.PN ---
<Vinicius Rivera - Last Filed: 04/14/18 15:18> Subjective - Date & Time of Evaluation Date of Evaluation: 04/14/18 Time of Evaluation: 06:00 - Subjective Subjective: Vinicius Rivera PGY1, medicine progress note for Dr Mattson. Pt seen and examined at bedside this morning. Pt sitting on the side of bed, belching and hiccuping, stating that he can't find a comfortable position. Denies abdominal pain, has not had a BM since arrival. Objective - Vital Signs/Intake and Output Vital Signs (last 24 hours): Temp Pulse Resp BP Pulse Ox 99.6 F 81 21 188/99 H 99 04/13/18 22:00 04/14/18 05:44 04/13/18 22:00 04/14/18 05:44 04/13/18 22:00 Intake and Output: 04/13/18 04/14/18 18:59 06:59 Intake Total 1800 Balance 1800 - Medications Medications: Current Medications Amlodipine Besylate (Norvasc) 10 mg PO DAILY [facility] Last Admin: 04/13/18 12:10 Dose: 10 mg Ascorbic Acid (Vitamin C 500 Mg Tab) 500 mg PO DAILY [facility] Last Admin: 04/13/18 09:51 Dose: Not Given Aspirin (Ecotrin) 81 mg PO DAILY [facility] Last Admin: 04/13/18 10:00 Dose: Not Given Atorvastatin Calcium (Lipitor) 40 mg PO HS [facility] Last Admin: 04/13/18 21:16 Dose: Not Given Enoxaparin Sodium (Lovenox) 40 mg SC DAILY [facility] PRN Reason: Protocol Last Admin: 04/13/18 09:44 Dose: 40 mg Hydralazine HCl (Apresoline) 25 mg IVP STAT [facility] Last Admin: 04/13/18 17:16 Dose: 25 mg Hydralazine HCl (Apresoline) 10 mg IVP Q6 PRN PRN Reason: SBP > 160 OR DBP > 100 Last Admin: 04/14/18 05:44 Dose: 10 mg Sodium Chloride (Sodium Chloride 0.9%) 1,000 mls @ 75 mls/hr IV .[id number] [facility] Last Admin: 04/13/18 23:16 Dose: 75 mls/hr Insulin Human Regular (Humulin R High) 0 units SC ACHS [facility] PRN Reason: Protocol Last Admin: 04/13/18 22:00 Dose: Not Given Ketorolac Tromethamine (Toradol) 15 mg IVP Q6H PRN PRN Reason: Pain, severe (8-10) Lisinopril (Zestril) 20 mg PO DAILY [facility] Last Admin: 04/12/18 12:24 Dose: 20 mg Ondansetron HCl (Zofran Inj) 4 mg IVP Q6H PRN PRN Reason: Nausea/Vomiting Last Admin: 04/14/18 06:03 Dose: 4 mg Pantoprazole Sodium (Protonix Inj) 40 mg IVP DAILY [facility] Last Admin: 04/13/18 09:44 Dose: 40 mg Vitamin D (Vitamin D 400 Intl Units Tab) 600 intlu PO DAILY [facility] Last Admin: 04/13/18 09:51 Dose: Not Given - Labs Labs: 04/13/18 06:00 04/13/18 06:00 - Constitutional Appears: No Acute Distress - Head Exam Head Exam: ATRAUMATIC, NORMOCEPHALIC - Eye Exam Eye Exam: EOMI - ENT Exam ENT Exam: Mucous Membranes Moist - Neck Exam Neck Exam: Full ROM - Respiratory Exam Respiratory Exam: Clear to Ausculation Bilateral, NORMAL BREATHING PATTERN. absent: Accessory Muscle Use, Rales, Rhonchi, Wheezes, Respiratory Distress, Stridor - Cardiovascular Exam Cardiovascular Exam: REGULAR RHYTHM, RRR, +S1, +S2. absent: Diastolic murmur, Irregular Rhythm, JVD, Murmur - GI/Abdominal Exam GI & Abdominal Exam: Soft, Normal Bowel Sounds. absent: Firm, Guarding, Rigid, Tenderness Additional comments: pt denies abdominal pain, even to deep palpation - Extremities Exam Extremities Exam: Full ROM, Normal Inspection. absent: Calf Tenderness, Pedal Edema - Back Exam Back Exam: absent: CVA tenderness (L), CVA tenderness (R) - Neurological Exam Neurological Exam: Alert, Awake, Oriented x3 - Psychiatric Exam Psychiatric exam: Normal Affect, Normal Mood - Skin Skin Exam: Dry, Normal Color, Warm Assessment and Plan - Assessment and Plan (Free Text) Assessment: Pt is a 62 yo male with a PMH of DM II, CAD, and osteomyelitis who presents with 2 days of nausea, vomiting, on IV Rocephin 2 grams daily for 5 weeks. Plan: Vomiting, possible pancreatitis - start Reglan - Continue: Liquid diet, NS 75 ml/hr, Zofran, Toradol, ISS, continue to hold Rocephin - Abdominal US: unremarkable, CT abdomen and pelvis: mild perinephric stranding - GI following, Dr Chapman Hypertension - Continue Hydralazine, Amlodipine - Bp elevated today - Increase Lisinopril, continue to monitor Osteomyelitis - ID following, Dr. Oates - Podiatry following, Dr. Cox Ppx - Lovenox - Protonix Pt seen, examined, assessment and plan discussed with Dr Srinivasan Rivera PGY1 <Carlos Mattson - Last Filed: 04/14/18 16:11> Objective - Vital Signs/Intake and Output Vital Signs (last 24 hours): Temp Pulse Resp BP Pulse Ox 98.6 F 89 20 167/83 H 98 04/14/18 06:00 04/14/18 08:46 04/14/18 06:00 04/14/18 10:07 04/14/18 06:00 Intake and Output: 04/14/18 04/14/18 06:59 18:59 Intake Total 2160 Balance 2160 - Medications Medications: Current Medications Amlodipine Besylate (Norvasc) 10 mg PO DAILY [facility] Last Admin: 04/14/18 10:07 Dose: 10 mg Ascorbic Acid (Vitamin C 500 Mg Tab) 500 mg PO DAILY [facility] Last Admin: 04/14/18 10:06 Dose: 500 mg Aspirin (Ecotrin) 81 mg PO DAILY [facility] Last Admin: 04/14/18 10:06 Dose: 81 mg Atorvastatin Calcium (Lipitor) 40 mg PO HS [facility] Last Admin: 04/13/18 21:16 Dose: Not Given Collagenase (Santyl) 0 gm TOP DAILY [facility] Enoxaparin Sodium (Lovenox) 40 mg SC DAILY [facility] PRN Reason: Protocol Last Admin: 04/14/18 10:06 Dose: 40 mg Hydralazine HCl (Apresoline) 25 mg IVP STAT [facility] Last Admin: 04/13/18 17:16 Dose: 25 mg Hydralazine HCl (Apresoline) 10 mg IVP Q6 PRN PRN Reason: SBP > 160 OR DBP > 100 Last Admin: 04/14/18 05:44 Dose: 10 mg Sodium Chloride (Sodium Chloride 0.9%) 1,000 mls @ 75 mls/hr IV .[id number] [facility] Last Admin: 04/13/18 23:16 Dose: 75 mls/hr Insulin Human Regular (Humulin R High) 0 units SC ACHS [facility] PRN Reason: Protocol Last Admin: 04/14/18 08:46 Dose: 5 units Ketorolac Tromethamine (Toradol) 15 mg IVP Q6H PRN PRN Reason: Pain, severe (8-10) Lisinopril (Zestril) 40 mg PO DAILY [facility] Last Admin: 04/14/18 10:06 Dose: 40 mg Ondansetron HCl (Zofran Inj) 4 mg IVP Q6H PRN PRN Reason: Nausea/Vomiting Last Admin: 04/14/18 06:03 Dose: 4 mg Pantoprazole Sodium (Protonix Inj) 40 mg IVP DAILY [facility] Last Admin: 04/14/18 10:05 Dose: 40 mg Vitamin D (Vitamin D 400 Intl Units Tab) 600 intlu PO DAILY [facility] Last Admin: 04/14/18 10:06 Dose: 600 intlu - Labs Labs: 04/14/18 06:30 04/14/18 06:30 Attending/Attestation - Attestation I have personally seen and examined this patient.: Yes I have fully participated in the care of the patient.: Yes I have reviewed all pertinent clinical information, including history, physical exam and plan: Yes
[2018-04-14 07:26] LABS: BASO # 0.02 K/mm3 (0.0-2.0); BASO % 0.2 % (0.0-3.0); EOS # 0.1 (0.0-0.7); EOS % 0.9 % (1.5-5.0); GRAN # 8.26 (1.4-6.5); GRAN % 78.5 % (50.0-68.0); HEMOGLOBIN 10.5 g/dL (14.0-18.0); LYMPH # 1.2 (1.2-3.4); LYMPH % 11.3 % (22.0-35.0); MEAN CELL VOLUME 88.7 fl (80.0-105.0); MEAN CORPUSCULAR HEMOGLOBIN 29.6 pg (25.0-35.0); MEAN CORPUSCULAR HGB CONC 33.3 g/dl (31.0-37.0); MEAN PLATELET VOLUME 9.7 fl (7.0-11.0); MONO % 9.1 % (1.0-6.0); RBC 3.55 10^6/uL (3.5-6.1); RED CELL DISTRIBUTION WIDTH 13.6 % (11.5-14.5); WHITE BLOOD COUNT 10.5 10^3/ul (4.5-11.0)
[2018-04-14 07:56] LABS: ALBUMIN 3.6 g/dL (3.0-4.8); ALT/SGPT 33 U/L (7-56); AST/SGOT 19 U/L (17-59); BLOOD UREA NITROGEN 26 mg/dL (7-21); CALCIUM 8.7 mg/dL (8.4-10.5); GFR NON-AFRICAN AMERICAN > 60
--- NOTE | 2018-04-14 08:30 | CP.PCM.PN ---
<Ashley Granado - Last Filed: 04/14/18 08:31> Subjective - Date & Time of Evaluation Date of Evaluation: 04/14/18 Time of Evaluation: 08:00 - Subjective Subjective: GI Fellow PGY5 Progress Note Pt seen and evaluated at bedside, pt reports feeling a little better this am with nausea but no vomiting. He denies any abdominal pain. No BM, tolerating clear liquid diet. Pt denies any dysuria or hematuria. ROS: A 12pt ROS was negative except as above Objective - Vital Signs/Intake and Output Vital Signs (last 24 hours): Temp Pulse Resp BP Pulse Ox 98.6 F 86 20 188/99 H 98 04/14/18 06:00 04/14/18 06:00 04/14/18 06:00 04/14/18 06:00 04/14/18 06:00 Intake and Output: 04/14/18 04/14/18 06:59 18:59 Intake Total 2160 Balance 2160 - Medications Medications: Current Medications Amlodipine Besylate (Norvasc) 10 mg PO DAILY [facility] Last Admin: 04/13/18 12:10 Dose: 10 mg Ascorbic Acid (Vitamin C 500 Mg Tab) 500 mg PO DAILY [facility] Last Admin: 04/13/18 09:51 Dose: Not Given Aspirin (Ecotrin) 81 mg PO DAILY [facility] Last Admin: 04/13/18 10:00 Dose: Not Given Atorvastatin Calcium (Lipitor) 40 mg PO HS [facility] Last Admin: 04/13/18 21:16 Dose: Not Given Enoxaparin Sodium (Lovenox) 40 mg SC DAILY [facility] PRN Reason: Protocol Last Admin: 04/13/18 09:44 Dose: 40 mg Hydralazine HCl (Apresoline) 25 mg IVP STAT [facility] Last Admin: 04/13/18 17:16 Dose: 25 mg Hydralazine HCl (Apresoline) 10 mg IVP Q6 PRN PRN Reason: SBP > 160 OR DBP > 100 Last Admin: 04/14/18 05:44 Dose: 10 mg Sodium Chloride (Sodium Chloride 0.9%) 1,000 mls @ 75 mls/hr IV .[id number] [facility] Last Admin: 04/13/18 23:16 Dose: 75 mls/hr Insulin Human Regular (Humulin R High) 0 units SC [facility] PRN Reason: Protocol Last Admin: 04/13/18 22:00 Dose: Not Given Ketorolac Tromethamine (Toradol) 15 mg IVP Q6H PRN PRN Reason: Pain, severe (8-10) Lisinopril (Zestril) 20 mg PO DAILY [facility] Last Admin: 04/12/18 12:24 Dose: 20 mg Ondansetron HCl (Zofran Inj) 4 mg IVP Q6H PRN PRN Reason: Nausea/Vomiting Last Admin: 04/14/18 06:03 Dose: 4 mg Pantoprazole Sodium (Protonix Inj) 40 mg IVP DAILY [facility] Last Admin: 04/13/18 09:44 Dose: 40 mg Vitamin D (Vitamin D 400 Intl Units Tab) 600 intlu PO DAILY [facility] Last Admin: 04/13/18 09:51 Dose: Not Given - Labs Labs: 04/14/18 06:30 04/14/18 06:30 - Constitutional Appears: Non-toxic, No Acute Distress - Head Exam Head Exam: ATRAUMATIC, NORMAL INSPECTION, NORMOCEPHALIC - Eye Exam Eye Exam: EOMI, Normal appearance, PERRL Pupil Exam: PERRL - ENT Exam ENT Exam: Mucous Membranes Moist - Neck Exam Neck Exam: Full ROM, Normal Inspection - Respiratory Exam Respiratory Exam: Clear to Ausculation Bilateral, NORMAL BREATHING PATTERN - Cardiovascular Exam Cardiovascular Exam: REGULAR RHYTHM, RRR, +S1, +S2 - GI/Abdominal Exam GI & Abdominal Exam: Soft, Normal Bowel Sounds. absent: Distended, Firm, Guarding, Tenderness, Organomegaly - Rectal Exam Rectal Exam: Deferred - Back Exam Back Exam: NORMAL INSPECTION - Neurological Exam Neurological Exam: Alert, Awake, Oriented x3 - Psychiatric Exam Psychiatric exam: Normal Affect, Normal Mood - Skin Skin Exam: Dry, Intact, Normal Color, Warm Assessment and Plan - Assessment and Plan (Free Text) Assessment: This is a 62yM presenting with complaints of intractable N/V. 1. Intractable nausea 2. Abdominal pain-resolved 3. Elevated Lipase 4. Elevated LFTs 5. Osteomyelitis s/p TMA on IV Rocephin wk6 6. Possible pyelonephritis Plan: -Continue supportive care with pain control and anti-emetics -Advance to full liquid diet -Abd US negative for gallstones -Abdominal pain resolved and not characteristics of pancreatitis -CT imaging ordered without contrast due to CKD, no pancreatitis, concern for pyelonephritis -Symptoms maybe from abx use vs gastroeneteritis -Lipase elevation is nonspecific -Lipid profile, serum etoh and UDS negative -Hepatitis panel negative -Elevated LFTs maybe from abx use, trending down -PPI daily -IVF hydration -Blood cultures negative -Any further abx therapy per ID -Please call with any questions or concerns <Ephraim Novoa - Last Filed: 04/14/18 18:40> Objective - Vital Signs/Intake and Output Vital Signs (last 24 hours): Temp Pulse Resp BP Pulse Ox 98.6 F 90 20 187/109 H 98 04/14/18 06:00 04/14/18 17:47 04/14/18 06:00 04/14/18 17:47 04/14/18 06:00 Intake and Output: 04/14/18 04/14/18 06:59 18:59 Intake Total 2160 Balance 2160 - Medications Medications: Current Medications Amlodipine Besylate (Norvasc) 10 mg PO DAILY [facility] Last Admin: 04/14/18 10:07 Dose: 10 mg Ascorbic Acid (Vitamin C 500 Mg Tab) 500 mg PO DAILY [facility] Last Admin: 04/14/18 10:06 Dose: 500 mg Aspirin (Ecotrin) 81 mg PO DAILY [facility] Last Admin: 04/14/18 10:06 Dose: 81 mg Atorvastatin Calcium (Lipitor) 40 mg PO HS [facility] Last Admin: 04/13/18 21:16 Dose: Not Given Collagenase (Santyl) 0 gm TOP DAILY [facility] Enoxaparin Sodium (Lovenox) 40 mg SC DAILY [facility] PRN Reason: Protocol Last Admin: 04/14/18 10:06 Dose: 40 mg Hydralazine HCl (Apresoline) 25 mg IVP STAT [facility] Last Admin: 04/13/18 17:16 Dose: 25 mg Hydralazine HCl (Apresoline) 10 mg IVP Q6 PRN PRN Reason: SBP > 160 OR DBP > 100 Last Admin: 04/14/18 05:44 Dose: 10 mg Sodium Chloride (Sodium Chloride 0.9%) 1,000 mls @ 75 mls/hr IV .[id number] [facility] Last Admin: 04/13/18 23:16 Dose: 75 mls/hr Insulin Human Regular (Humulin R High) 0 units SC ACHS [facility] PRN Reason: Protocol Last Admin: 04/14/18 17:46 Dose: 2 units Ketorolac Tromethamine (Toradol) 15 mg IVP Q6H PRN PRN Reason: Pain, severe (8-10) Lisinopril (Zestril) 40 mg PO DAILY [facility] Last Admin: 04/14/18 10:06 Dose: 40 mg Metoclopramide HCl (Reglan) 10 mg IVP Q6 [facility] Ondansetron HCl (Zofran Inj) 4 mg IVP Q6H PRN PRN Reason: Nausea/Vomiting Last Admin: 04/14/18 06:03 Dose: 4 mg Pantoprazole Sodium (Protonix Inj) 40 mg IVP DAILY [facility] Last Admin: 04/14/18 10:05 Dose: 40 mg Vitamin D (Vitamin D 400 Intl Units Tab) 600 intlu PO DAILY [facility] Last Admin: 04/14/18 10:06 Dose: 600 intlu - Labs Labs: 04/14/18 06:30 04/14/18 06:30 Attending/Attestation - Attestation I have personally seen and examined this patient.: Yes I have fully participated in the care of the patient.: Yes I have reviewed all pertinent clinical information, including history, physical exam and plan: Yes Notes (Text): 04/14/18 18:39 This is a 62 yr old M presenting with complaints of intractable N/V with elevated lipase and LFT, sonogram unremarkable. Recent antibiotics for osteomyelitis may have contributed to the above. CT with pyelonephritis. Antibiotics as per ID. No acute features of pancreatitis. Pain likely due to kidney issues. Will sign off.
[2018-04-14] MEDS: Insulin Reg-HIGH-Coverage SC SCH ×4 (08:46→21:36)
[2018-04-14] MEDS: Enoxaparin 40 mg Syringe SC SCH (10:06)
[2018-04-14] MEDS: Cholecalciferol 400 Intl Units Tab PO SCH (10:06)
[2018-04-14] MEDS: Sodium Chloride 0.9% 1,000 ML IV SCH (21:48)
--- NOTE | 2018-04-14 23:36 | CP.PCM.PN ---
Subjective - Date & Time of Evaluation Date of Evaluation: 04/14/18 Time of Evaluation: 22:00 - Subjective Subjective: Infectious Disease Follow Up: April 14, 2018 62 yo male with PMHx of DM, CAD, HTN, dyslipidemia, and history of Left heel osteomyelitis that ultimately required left transmetatarsal resection. The patient was still on IV Rocephin for treatment of osteomyelitis with MSSA. The patient was on week 5 of therapy. He began to have intractable nausea and vomiting for the past 2 days. The patient has known noncompliance with his diabetic treatment. He is currently complaining that he cannot swallow his blood pressure medications. The patient has known issues with GERDs as well. ESR has increased drastically to 118 from 27 a week ago. Lipase was found to be 1056. Unremarkable ultrasound of the gallbladder/abdomen. Nausea still. The patient still has not had any bowel movements. Tolerating liquid diet. Objective - Vital Signs/Intake and Output Vital Signs (last 24 hours): Temp Pulse Resp BP Pulse Ox 99.2 F 99 H 19 162/97 H 98 04/14/18 23:21 04/14/18 23:21 04/14/18 23:21 04/14/18 23:21 04/14/18 23:21 Intake and Output: 04/14/18 04/15/18 18:59 06:59 Intake Total 240 Balance 240 - Medications Medications: Current Medications Amlodipine Besylate (Norvasc) 10 mg PO DAILY [facility] Last Admin: 04/14/18 10:07 Dose: 10 mg Ascorbic Acid (Vitamin C 500 Mg Tab) 500 mg PO DAILY [facility] Last Admin: 04/14/18 10:06 Dose: 500 mg Aspirin (Ecotrin) 81 mg PO DAILY [facility] Last Admin: 04/14/18 10:06 Dose: 81 mg Atorvastatin Calcium (Lipitor) 40 mg PO HS [facility] Last Admin: 04/13/18 21:16 Dose: Not Given Collagenase (Santyl) 0 gm TOP DAILY [facility] Enoxaparin Sodium (Lovenox) 40 mg SC DAILY [facility] PRN Reason: Protocol Last Admin: 04/14/18 10:06 Dose: 40 mg Hydralazine HCl (Apresoline) 10 mg IVP Q6 PRN PRN Reason: SBP > 160 OR DBP > 100 Last Admin: 04/14/18 18:56 Dose: 10 mg Sodium Chloride (Sodium Chloride 0.9%) 1,000 mls @ 75 mls/hr IV .[id number] [facility] Last Admin: 04/14/18 21:48 Dose: 75 mls/hr Insulin Human Regular (Humulin R High) 0 units SC ACHS [facility] PRN Reason: Protocol Last Admin: 04/14/18 21:36 Dose: Not Given Ketorolac Tromethamine (Toradol) 15 mg IVP Q6H PRN PRN Reason: Pain, severe (8-10) Lisinopril (Zestril) 40 mg PO DAILY [facility] Last Admin: 04/14/18 10:06 Dose: 40 mg Metoclopramide HCl (Reglan) 10 mg IVP Q6 [facility] Last Admin: 04/14/18 23:06 Dose: 10 mg Ondansetron HCl (Zofran Inj) 4 mg IVP Q6H PRN PRN Reason: Nausea/Vomiting Last Admin: 04/14/18 21:49 Dose: 4 mg Pantoprazole Sodium (Protonix Inj) 40 mg IVP DAILY [facility] Last Admin: 04/14/18 10:05 Dose: 40 mg Vitamin D (Vitamin D 400 Intl Units Tab) 600 intlu PO DAILY [facility] Last Admin: 04/14/18 10:06 Dose: 600 intlu - Labs Labs: 04/14/18 06:30 04/14/18 06:30 - Constitutional Appears: Non-toxic, No Acute Distress, Chronically Ill - Head Exam Head Exam: ATRAUMATIC, NORMOCEPHALIC - Eye Exam Eye Exam: EOMI, PERRL Pupil Exam: NORMAL ACCOMODATION, PERRL - ENT Exam ENT Exam: Mucous Membranes Moist, Normal External Ear Exam, TM's Normal Bilaterally - Neck Exam Neck Exam: Full ROM, Normal Inspection Additional comments: poor dentition - Respiratory Exam Respiratory Exam: Clear to Ausculation Bilateral, NORMAL BREATHING PATTERN. absent: Rales, Rhonchi, Wheezes - Cardiovascular Exam Cardiovascular Exam: REGULAR RHYTHM, RRR, +S1, +S2 - GI/Abdominal Exam GI & Abdominal Exam: Soft, Normal Bowel Sounds. absent: Distended, Tenderness - Extremities Exam Extremities Exam: Joint Swelling, Pedal Edema Additional comments: left transmetatarsal resection - Neurological Exam Neurological Exam: Alert, Awake, CN II-XII Intact, Oriented x3 - Psychiatric Exam Psychiatric exam: Normal Affect, Normal Mood - Skin Skin Exam: Intact, Normal Color Assessment and Plan - Assessment and Plan (Free Text) Assessment: 62 yo male with extensive past medical history that includes HTN, DM, dyslipidemia, CAD, CKD Stage III, and recent diagnosis of Osteomyelitis of the left foot. The patient was on IV Rocephin of 2 grams daily to complete 6 weeks of therapy. He is currently on week 5 of therapy of the Rocephin. The patient had severely elevated Lipase values to 1056. Question of Pancreatitis at this point. No prior history of Pancreatitis. ESR with significant elevation to 118. C-Reactive protein of 200 now. Still nausea at this time. Bilirubin mildly elevated. AST and ALT normal. HIV negative. Hepatitis studies negative. Consider Plain X-ray of abdomen or CT without contrast of abdomen. No leukocytosis. CT abdomen does not show pancreatitis but shows minimal perinephric stranding bilaterally. Hold all antibiotics at this time. Monitor fever and WBC trend. Monitor ESR trend. No new issues for far. Thank you for allowing me to participate in the care of the patient, we will follow with you.
[2018-04-15 06:33] LABS: BASO # 0.02 K/mm3 (0.0-2.0); BASO % 0.2 % (0.0-3.0); EOS # 0.1 (0.0-0.7); EOS % 1.1 % (1.5-5.0); GRAN # 8.66 (1.4-6.5); GRAN % 74.3 % (50.0-68.0); HEMOGLOBIN 10.8 g/dL (14.0-18.0); LYMPH # 1.9 (1.2-3.4); LYMPH % 16.1 % (22.0-35.0); MEAN CELL VOLUME 88.8 fl (80.0-105.0); MEAN CORPUSCULAR HEMOGLOBIN 29.6 pg (25.0-35.0); MEAN CORPUSCULAR HGB CONC 33.3 g/dl (31.0-37.0); MEAN PLATELET VOLUME 9.6 fl (7.0-11.0); MONO % 8.3 % (1.0-6.0); RBC 3.65 10^6/uL (3.5-6.1); RED CELL DISTRIBUTION WIDTH 13.8 % (11.5-14.5); WHITE BLOOD COUNT 11.7 10^3/ul (4.5-11.0)
[2018-04-15 07:11] LABS: ALBUMIN 3.6 g/dL (3.0-4.8); ALT/SGPT 33 U/L (7-56); AST/SGOT 28 U/L (17-59); BLOOD UREA NITROGEN 27 mg/dL (7-21); CALCIUM 8.7 mg/dL (8.4-10.5); GFR NON-AFRICAN AMERICAN > 60
[2018-04-15] MEDS: Insulin Reg-HIGH-Coverage SC SCH ×4 (07:49→21:48)
[2018-04-15] MEDS: Collagenase 250 Units/gm Ointment(30 gm) TOP SCH ×2 (07:50→17:11)
[2018-04-15] MEDS: Cholecalciferol 400 Intl Units Tab PO SCH (09:15)
[2018-04-15] MEDS: Enoxaparin 40 mg Syringe SC SCH (09:16)
[2018-04-15] MEDS: Sodium Chloride 0.9% 1,000 ML IV SCH ×2 (11:58→23:49)
--- NOTE | 2018-04-15 14:51 | CP.PCM.PN ---
Subjective - Date & Time of Evaluation Date of Evaluation: 04/15/18 Time of Evaluation: 13:45 - Subjective Subjective: Infectious Disease Follow Up: April 15, 2018 62 yo male with PMHx of DM, CAD, HTN, dyslipidemia, and history of Left heel osteomyelitis that ultimately required left transmetatarsal resection. The patient was still on IV Rocephin for treatment of osteomyelitis with MSSA. The patient was on week 5 of therapy. He began to have intractable nausea and vomiting for the past 2 days. The patient has known noncompliance with his diabetic treatment. He is currently complaining that he cannot swallow his blood pressure medications. The patient has known issues with GERDs as well. ESR has increased drastically to 118 from 27 a week ago. Lipase was found to be 1056. Unremarkable ultrasound of the gallbladder/abdomen. Nausea still. The patient still has not had any bowel movements. Tolerating liquid diet. Feels better but still with nausea. Objective - Vital Signs/Intake and Output Vital Signs (last 24 hours): Temp Pulse Resp BP Pulse Ox 98.2 F 88 20 167/94 H 100 04/15/18 06:00 04/15/18 07:01 04/15/18 06:00 04/15/18 09:17 04/15/18 06:00 Intake and Output: 04/15/18 04/15/18 06:59 18:59 Intake Total 240 Balance 240 - Medications Medications: Current Medications Amlodipine Besylate (Norvasc) 10 mg PO DAILY [facility] Last Admin: 04/15/18 09:17 Dose: 10 mg Ascorbic Acid (Vitamin C 500 Mg Tab) 500 mg PO DAILY [facility] Last Admin: 04/15/18 09:15 Dose: 500 mg Aspirin (Ecotrin) 81 mg PO DAILY [facility] Last Admin: 04/15/18 09:16 Dose: 81 mg Atorvastatin Calcium (Lipitor) 40 mg PO HS [facility] Last Admin: 04/15/18 00:49 Dose: Not Given Collagenase (Santyl) 0 gm TOP DAILY [facility] Last Admin: 04/15/18 07:50 Dose: 1 applic Cyclobenzaprine HCl (Flexeril) 5 mg PO TID PRN PRN Reason: Hiccups Enoxaparin Sodium (Lovenox) 40 mg SC DAILY [facility] PRN Reason: Protocol Last Admin: 04/15/18 09:16 Dose: 40 mg Hydralazine HCl (Apresoline) 10 mg IVP Q6 PRN PRN Reason: SBP > 160 OR DBP > 100 Last Admin: 04/15/18 07:01 Dose: 10 mg Sodium Chloride (Sodium Chloride 0.9%) 1,000 mls @ 75 mls/hr IV .[id number] [facility] Last Admin: 04/15/18 11:58 Dose: 75 mls/hr Insulin Human Regular (Humulin R High) 0 units SC ACHS [facility] PRN Reason: Protocol Last Admin: 04/15/18 11:57 Dose: 10 units Ketorolac Tromethamine (Toradol) 15 mg IVP Q6H PRN PRN Reason: Pain, severe (8-10) Lisinopril (Zestril) 40 mg PO DAILY [facility] Last Admin: 04/15/18 09:17 Dose: 40 mg Metoclopramide HCl (Reglan) 10 mg IVP Q6 [facility] Last Admin: 04/15/18 11:58 Dose: 10 mg Ondansetron HCl (Zofran Inj) 4 mg IVP Q6H PRN PRN Reason: Nausea/Vomiting Last Admin: 04/15/18 07:54 Dose: 4 mg Pantoprazole Sodium (Protonix Inj) 40 mg IVP DAILY [facility] Last Admin: 04/15/18 09:16 Dose: 40 mg Vitamin D (Vitamin D 400 Intl Units Tab) 600 intlu PO DAILY [facility] Last Admin: 04/15/18 09:15 Dose: 600 intlu - Labs Labs: 04/15/18 06:20 04/15/18 06:20 - Constitutional Appears: Non-toxic, No Acute Distress, Chronically Ill - Head Exam Head Exam: ATRAUMATIC, NORMOCEPHALIC - Eye Exam Eye Exam: EOMI, PERRL Pupil Exam: NORMAL ACCOMODATION, PERRL - ENT Exam ENT Exam: Mucous Membranes Moist, Normal External Ear Exam, TM's Normal Bilaterally - Neck Exam Neck Exam: Normal Inspection Additional comments: Poor Dentition. - Respiratory Exam Respiratory Exam: Clear to Ausculation Bilateral, NORMAL BREATHING PATTERN. absent: Rales, Rhonchi, Wheezes - Cardiovascular Exam Cardiovascular Exam: REGULAR RHYTHM, RRR, +S1, +S2 - GI/Abdominal Exam GI & Abdominal Exam: Soft, Normal Bowel Sounds. absent: Distended, Tenderness - Extremities Exam Extremities Exam: Joint Swelling, Pedal Edema Additional comments: left transmetatarsal resection - Neurological Exam Neurological Exam: Alert, Awake, CN II-XII Intact, Oriented x3 - Psychiatric Exam Psychiatric exam: Normal Affect, Normal Mood - Skin Skin Exam: Intact, Normal Color Assessment and Plan - Assessment and Plan (Free Text) Assessment: 62 yo male with extensive past medical history that includes HTN, DM, dyslipidemia, CAD, CKD Stage III, and recent diagnosis of Osteomyelitis of the left foot. The patient was on IV Rocephin of 2 grams daily to complete 6 weeks of therapy. He is currently on week 5 of therapy of the Rocephin. The patient had severely elevated Lipase values to 1056. Question of Pancreatitis at this point. No prior history of Pancreatitis. ESR with significant elevation to 118. C-Reactive protein of 200 now. Still nausea at this time. Bilirubin mildly elevated. AST and ALT normal. HIV negative. Hepatitis studies negative. Consider Plain X-ray of abdomen or CT without contrast of abdomen. No leukocytosis. CT abdomen does not show pancreatitis but shows minimal perinephric stranding bilaterally. Hold all antibiotics at this time. Monitor fever and WBC trend. Monitor ESR trend. Monitor C-Reactive Protein. No new issues for far. Very slowly improving. Thank you for allowing me to participate in the care of the patient, we will follow with you.
--- NOTE | 2018-04-15 15:04 | CP.PCM.PN ---
Subjective - Date & Time of Evaluation Date of Evaluation: 04/15/18 Time of Evaluation: 14:59 - Subjective Subjective: Podiatry Progress Note - Dr. Jauregui 62M seen and evaluated at bedside for left transmetatarsal amputation nonhealing wound. Patient hemodynamically stable and NAD. Reports continued nausea, denies abdominal pain or further episodes of emesis. No new complaints to left TMA wound. Patient states he has been WBAT LLE in surgical shoe, ambulating w/o issues. Denies fever, chills, GUZMAN, dizziness, chest pain, palpitations. Objective - Vital Signs/Intake and Output Vital Signs (last 24 hours): Temp Pulse Resp BP Pulse Ox 98.2 F 88 20 167/94 H 100 04/15/18 06:00 04/15/18 07:01 04/15/18 06:00 04/15/18 09:17 04/15/18 06:00 Intake and Output: 04/15/18 04/15/18 06:59 18:59 Intake Total 240 Balance 240 - Medications Medications: Current Medications Amlodipine Besylate (Norvasc) 10 mg PO DAILY [facility] Last Admin: 04/15/18 09:17 Dose: 10 mg Ascorbic Acid (Vitamin C 500 Mg Tab) 500 mg PO DAILY [facility] Last Admin: 04/15/18 09:15 Dose: 500 mg Aspirin (Ecotrin) 81 mg PO DAILY [facility] Last Admin: 04/15/18 09:16 Dose: 81 mg Atorvastatin Calcium (Lipitor) 40 mg PO HS [facility] Last Admin: 04/15/18 00:49 Dose: Not Given Collagenase (Santyl) 0 gm TOP DAILY [facility] Last Admin: 04/15/18 07:50 Dose: 1 applic Cyclobenzaprine HCl (Flexeril) 5 mg PO TID PRN PRN Reason: Hiccups Enoxaparin Sodium (Lovenox) 40 mg SC DAILY [facility] PRN Reason: Protocol Last Admin: 04/15/18 09:16 Dose: 40 mg Hydralazine HCl (Apresoline) 10 mg IVP Q6 PRN PRN Reason: SBP > 160 OR DBP > 100 Last Admin: 04/15/18 07:01 Dose: 10 mg Sodium Chloride (Sodium Chloride 0.9%) 1,000 mls @ 75 mls/hr IV .[id number] [facility] Last Admin: 04/15/18 11:58 Dose: 75 mls/hr Insulin Human Regular (Humulin R High) 0 units SC ACHS [facility] PRN Reason: Protocol Last Admin: 04/15/18 11:57 Dose: 10 units Ketorolac Tromethamine (Toradol) 15 mg IVP Q6H PRN PRN Reason: Pain, severe (8-10) Lisinopril (Zestril) 40 mg PO DAILY [facility] Last Admin: 04/15/18 09:17 Dose: 40 mg Metoclopramide HCl (Reglan) 10 mg IVP Q6 [facility] Last Admin: 04/15/18 11:58 Dose: 10 mg Ondansetron HCl (Zofran Inj) 4 mg IVP Q6H PRN PRN Reason: Nausea/Vomiting Last Admin: 04/15/18 07:54 Dose: 4 mg Pantoprazole Sodium (Protonix Inj) 40 mg IVP DAILY [facility] Last Admin: 04/15/18 09:16 Dose: 40 mg Vitamin D (Vitamin D 400 Intl Units Tab) 600 intlu PO DAILY [facility] Last Admin: 04/15/18 09:15 Dose: 600 intlu - Labs Labs: 04/15/18 06:20 04/15/18 06:20 - Constitutional Appears: Well, Non-toxic, No Acute Distress - Extremities Exam Additional comments: Dressing to LLE clean/dry/intact LLE focused exam: Vasc: DP pulse palpable 1/4, PT pulse non palpable. Temperature gradient cool to cool. Capillary fill time good to TMA flap. Minimal nonpitting edema noted. Neuro: Protective sensation diminished. Derm: Full thickness ulceration measuring approximately 3.5 x 3.5 x 0.1 cm noted to distal-lateral aspecto of TMA flap extending down to subcutaneous tissue - ulcer noted to have 100% fibrous base with hyperkeratotic rim; minimal serous drainage; no purulence; no fluctuance; no undermining; no tunneling; no probe to bone; no malodor; no clinical signs of infection present. Ortho: S/p transmetatarsal amputation. No tenderness to palpation amputation site. Muscle strength 5/5 for all dorsiflexors, plantarflexors, inverters, and everters. - Neurological Exam Neurological Exam: Alert, Awake, Oriented x3 - Psychiatric Exam Psychiatric exam: Normal Affect, Normal Mood Assessment and Plan - Assessment and Plan (Free Text) Assessment: 62 y/o male 7 weeks s/p left transmetarsal amputation with non-healing ulceration (DOS 02/24/18) Plan: Patient seen and evaluated at bedside Discussed with attending, Dr. Jauregui TMA + ulceration appear stable w/no signs of infection, will continue to monitor Continue local wound care: saline flush, santyl, DSD Activity: WBAT LLE in surgical shoe with the assistance of crutches Continue PT/OT Per ID, hold all antibiotics Monitor fever and trend WBC Podiatry will continue to follow
--- NOTE | 2018-04-15 17:24 | CP.PCM.PN ---
<Beck Laurent - Last Filed: 04/15/18 17:21> Subjective - Date & Time of Evaluation Date of Evaluation: 04/15/18 Time of Evaluation: 10:45 - Subjective Subjective: Beck Laurent DO PGY-1, Stereoplotter Operator Medicine Progress Note Pt seen and examined at bedside. States he was able to tolerate liquids overnight, reports 1 episode of vomiting at 9 pm relieved with zofran but otherwise denies feeling nauseous or further vomiting episodes this am. No acute events reported. Denies fever, chills, chest pain, sob, d/c, urinary complaints or other symptoms. Objective - Vital Signs/Intake and Output Vital Signs (last 24 hours): Temp Pulse Resp BP Pulse Ox 99.2 F 93 H 20 147/97 H 99 04/15/18 16:26 04/15/18 16:26 04/15/18 16:26 04/15/18 16:26 04/15/18 16:26 Intake and Output: 04/15/18 04/15/18 06:59 18:59 Intake Total 240 Balance 240 - Medications Medications: Current Medications Amlodipine Besylate (Norvasc) 10 mg PO DAILY [facility] Last Admin: 04/15/18 09:17 Dose: 10 mg Ascorbic Acid (Vitamin C 500 Mg Tab) 500 mg PO DAILY [facility] Last Admin: 04/15/18 09:15 Dose: 500 mg Aspirin (Ecotrin) 81 mg PO DAILY [facility] Last Admin: 04/15/18 09:16 Dose: 81 mg Atorvastatin Calcium (Lipitor) 40 mg PO HS [facility] Last Admin: 04/15/18 00:49 Dose: Not Given Collagenase (Santyl) 0 gm TOP DAILY [facility] Last Admin: 04/15/18 17:11 Dose: Not Given Cyclobenzaprine HCl (Flexeril) 5 mg PO TID PRN PRN Reason: Hiccups Enoxaparin Sodium (Lovenox) 40 mg SC DAILY [facility] PRN Reason: Protocol Last Admin: 04/15/18 09:16 Dose: 40 mg Hydralazine HCl (Apresoline) 10 mg IVP Q6 PRN PRN Reason: SBP > 160 OR DBP > 100 Last Admin: 04/15/18 07:01 Dose: 10 mg Sodium Chloride (Sodium Chloride 0.9%) 1,000 mls @ 75 mls/hr IV .[id number] [facility] Last Admin: 04/15/18 11:58 Dose: 75 mls/hr Insulin Human Regular (Humulin R High) 0 units SC ACHS [facility] PRN Reason: Protocol Last Admin: 04/15/18 17:09 Dose: 2 units Ketorolac Tromethamine (Toradol) 15 mg IVP Q6H PRN PRN Reason: Pain, severe (8-10) Lisinopril (Zestril) 40 mg PO DAILY [facility] Last Admin: 04/15/18 09:17 Dose: 40 mg Metoclopramide HCl (Reglan) 10 mg IVP Q6 [facility] Last Admin: 04/15/18 17:11 Dose: 10 mg Ondansetron HCl (Zofran Inj) 4 mg IVP Q6H PRN PRN Reason: Nausea/Vomiting Last Admin: 04/15/18 07:54 Dose: 4 mg Pantoprazole Sodium (Protonix Inj) 40 mg IVP DAILY [facility] Last Admin: 04/15/18 09:16 Dose: 40 mg Vitamin D (Vitamin D 400 Intl Units Tab) 600 intlu PO DAILY [facility] Last Admin: 04/15/18 09:15 Dose: 600 intlu - Labs Labs: 04/15/18 06:20 04/15/18 06:20 - Constitutional Appears: Non-toxic, No Acute Distress - Head Exam Head Exam: ATRAUMATIC, NORMAL INSPECTION - Eye Exam Eye Exam: EOMI, Normal appearance, PERRL - ENT Exam ENT Exam: Mucous Membranes Moist, Normal Oropharynx - Respiratory Exam Respiratory Exam: Clear to Ausculation Bilateral, NORMAL BREATHING PATTERN - Cardiovascular Exam Cardiovascular Exam: REGULAR RHYTHM, +S1, +S2 - GI/Abdominal Exam GI & Abdominal Exam: Soft, Normal Bowel Sounds Additional comments: Mild tenderness to palpation in epigastric area - Extremities Exam Extremities Exam: Full ROM, Normal Capillary Refill, Normal Inspection - Neurological Exam Neurological Exam: Alert, Awake, CN II-XII Intact, Oriented x3 - Skin Skin Exam: Dry, Intact, Normal Color, Warm Assessment and Plan - Assessment and Plan (Free Text) Assessment: 62 yo male with a PMH of DM II, CAD, and osteomyelitis who presents with 2 days of nausea, vomiting, on IV Rocephin 2 grams daily for 5 weeks. Plan: Vomiting, r/o pancreatitis - C/w Reglan - Continue: Liquid diet, NS 75 ml/hr, Zofran, Toradol, ISS, continue to hold Rocephin - Abdominal US: unremarkable, CT abdomen and pelvis: mild perinephric stranding - GI following, Dr Chapman - Advance to soft diet this evening Hypertension - Continue Hydralazine, Amlodipine, Lisinopril - Continue to trend bps Hx Osteomyelitis - ID following, Dr. Oates - Podiatry following, Dr. Cox Ppx - Lovenox - Protonix Pt seen, examined, assessment and plan discussed with Dr Mattson. Beck Laurent, DO PGY-1, Stereoplotter Operator <Carlos Mattson - Last Filed: 04/16/18 19:07> Objective - Vital Signs/Intake and Output Vital Signs (last 24 hours): Temp Pulse Resp BP Pulse Ox 97.4 F L 92 H 20 165/102 H 98 04/16/18 14:00 04/16/18 19:00 04/16/18 14:00 04/16/18 19:00 04/16/18 14:00 - Medications Medications: Current Medications Amlodipine Besylate (Norvasc) 10 mg PO DAILY [facility] Last Admin: 04/16/18 10:35 Dose: 10 mg Ascorbic Acid (Vitamin C 500 Mg Tab) 500 mg PO DAILY [facility] Last Admin: 04/16/18 10:35 Dose: 500 mg Aspirin (Ecotrin) 81 mg PO DAILY [facility] Last Admin: 04/16/18 10:35 Dose: 81 mg Atorvastatin Calcium (Lipitor) 40 mg PO HS [facility] Last Admin: 04/15/18 21:48 Dose: Not Given Collagenase (Santyl) 0 gm TOP DAILY [facility] Last Admin: 04/16/18 11:24 Dose: 1 applic Cyclobenzaprine HCl (Flexeril) 5 mg PO TID PRN PRN Reason: Hiccups Last Admin: 04/16/18 00:00 Dose: 5 mg Enoxaparin Sodium (Lovenox) 40 mg SC DAILY [facility] PRN Reason: Protocol Last Admin: 04/16/18 10:27 Dose: 40 mg Hydralazine HCl (Apresoline) 10 mg IVP Q6 PRN PRN Reason: SBP > 160 OR DBP > 100 Last Admin: 04/16/18 18:50 Dose: 10 mg Sodium Chloride (Sodium Chloride 0.9%) 1,000 mls @ 75 mls/hr IV .[id number] [facility] Last Admin: 04/16/18 12:11 Dose: 75 mls/hr Cefepime HCl (Maxipime 1gm) 1 gm in 100 mls @ 100 mls/hr IVPB Q12 [facility] PRN Reason: Protocol Insulin Detemir (Levemir) 4 unit SC AMHS [facility] Insulin Human Regular (Humulin R High) 0 units SC ACHS [facility] PRN Reason: Protocol Last Admin: 04/16/18 18:22 Dose: 15 units Ketorolac Tromethamine (Toradol) 15 mg IVP Q6H PRN PRN Reason: Pain, severe (8-10) Lisinopril (Zestril) 40 mg PO DAILY [facility] Last Admin: 04/16/18 10:37 Dose: 40 mg Metoprolol Tartrate (Lopressor) 25 mg PO BID [facility] Last Admin: 04/16/18 19:00 Dose: 25 mg Ondansetron HCl (Zofran Inj) 4 mg IVP Q6H PRN PRN Reason: Nausea/Vomiting Last Admin: 04/15/18 07:54 Dose: 4 mg Pantoprazole Sodium (Protonix Inj) 40 mg IVP DAILY [facility] Last Admin: 04/16/18 10:25 Dose: 40 mg Vitamin D (Vitamin D 400 Intl Units Tab) 600 intlu PO DAILY [facility] Last Admin: 04/16/18 10:28 Dose: 600 intlu - Labs Labs: 04/16/18 07:30 04/16/18 07:30 Attending/Attestation - Attestation I have personally seen and examined this patient.: Yes I have fully participated in the care of the patient.: Yes I have reviewed all pertinent clinical information, including history, physical exam and plan: Yes
[2018-04-16 07:42] LABS: BASO # 0.02 K/mm3 (0.0-2.0); BASO % 0.2 % (0.0-3.0); EOS # 0.2 (0.0-0.7); GRAN # 8.56 (1.4-6.5); GRAN % 74.7 % (50.0-68.0); HEMOGLOBIN 10.6 g/dL (14.0-18.0); LYMPH # 1.6 (1.2-3.4); LYMPH % 13.7 % (22.0-35.0); MEAN CELL VOLUME 88.7 fl (80.0-105.0); MEAN CORPUSCULAR HEMOGLOBIN 29.9 pg (25.0-35.0); MEAN CORPUSCULAR HGB CONC 33.8 g/dl (31.0-37.0); MEAN PLATELET VOLUME 9.1 fl (7.0-11.0); MONO # 1.1 (0.1-0.6); MONO % 9.4 % (1.0-6.0); RBC 3.54 10^6/uL (3.5-6.1); RED CELL DISTRIBUTION WIDTH 13.6 % (11.5-14.5); WHITE BLOOD COUNT 11.5 10^3/ul (4.5-11.0)
[2018-04-16 07:53] LABS: ALBUMIN 3.4 g/dL (3.0-4.8); ALT/SGPT 35 U/L (7-56); AST/SGOT 28 U/L (17-59); BLOOD UREA NITROGEN 29 mg/dL (7-21); CALCIUM 8.3 mg/dL (8.4-10.5); GFR NON-AFRICAN AMERICAN > 60
[2018-04-16] MEDS: Enoxaparin 40 mg Syringe SC SCH (10:27)
[2018-04-16] MEDS: Cholecalciferol 400 Intl Units Tab PO SCH (10:28)
[2018-04-16] MEDS: Insulin Reg-HIGH-Coverage SC SCH ×5 (10:37→21:48)
[2018-04-16] MEDS: Collagenase 250 Units/gm Ointment(30 gm) TOP SCH (11:24)
[2018-04-16] MEDS: Sodium Chloride 0.9% 1,000 ML IV SCH (12:11)
[2018-04-16] MEDS ORDERED: cefTRIAXone 1 gm 1 GM/100 ML BAG IVPB SCH (14:15)
--- NOTE | 2018-04-16 17:22 | CP.PCM.PN ---
Subjective - Date & Time of Evaluation Date of Evaluation: 04/16/18 Time of Evaluation: 14:45 - Subjective Subjective: Infectious Disease Follow Up: April 16, 2018 62 yo male with PMHx of DM, CAD, HTN, dyslipidemia, and history of Left heel osteomyelitis that ultimately required left transmetatarsal resection. The patient was still on IV Rocephin for treatment of osteomyelitis with MSSA. The patient was on week 5 of therapy. He began to have intractable nausea and vomiting for the past 2 days. The patient has known noncompliance with his diabetic treatment. He is currently complaining that he cannot swallow his blood pressure medications. The patient has known issues with GERDs as well. ESR has increased drastically to 118 from 27 a week ago. Lipase was found to be 1056. Unremarkable ultrasound of the gallbladder/abdomen. Nausea still. The patient still has not had any bowel movements. Tolerating liquid diet. Feels better but still with nausea. Lipase at a normal level now. The patient with the question of pyelonephritis from the CT scan of the abd/pelvis. No growth in blood cultures. Objective - Vital Signs/Intake and Output Vital Signs (last 24 hours): Temp Pulse Resp BP Pulse Ox 97.4 F L 91 H 20 165/102 H 98 04/16/18 14:00 04/16/18 14:00 04/16/18 14:00 04/16/18 14:00 04/16/18 14:00 Intake and Output: 04/16/18 04/16/18 06:59 18:59 Intake Total 120 Balance 120 - Medications Medications: Current Medications Amlodipine Besylate (Norvasc) 10 mg PO DAILY [facility] Last Admin: 04/16/18 10:35 Dose: 10 mg Ascorbic Acid (Vitamin C 500 Mg Tab) 500 mg PO DAILY [facility] Last Admin: 04/16/18 10:35 Dose: 500 mg Aspirin (Ecotrin) 81 mg PO DAILY [facility] Last Admin: 04/16/18 10:35 Dose: 81 mg Atorvastatin Calcium (Lipitor) 40 mg PO HS [facility] Last Admin: 04/15/18 21:48 Dose: Not Given Collagenase (Santyl) 0 gm TOP DAILY [facility] Last Admin: 04/16/18 11:24 Dose: 1 applic Cyclobenzaprine HCl (Flexeril) 5 mg PO TID PRN PRN Reason: Hiccups Last Admin: 04/16/18 00:00 Dose: 5 mg Enoxaparin Sodium (Lovenox) 40 mg SC DAILY [facility] PRN Reason: Protocol Last Admin: 04/16/18 10:27 Dose: 40 mg Hydralazine HCl (Apresoline) 10 mg IVP Q6 PRN PRN Reason: SBP > 160 OR DBP > 100 Last Admin: 04/16/18 05:54 Dose: 10 mg Sodium Chloride (Sodium Chloride 0.9%) 1,000 mls @ 75 mls/hr IV .[id number] [facility] Last Admin: 04/16/18 12:11 Dose: 75 mls/hr Cefepime HCl (Maxipime 1gm) 1 gm in 100 mls @ 100 mls/hr IVPB Q12 [facility] PRN Reason: Protocol Insulin Detemir (Levemir) 4 unit SC AMHS [facility] Insulin Human Regular (Humulin R High) 0 units SC ACHS [facility] PRN Reason: Protocol Last Admin: 04/16/18 12:14 Dose: 15 units Ketorolac Tromethamine (Toradol) 15 mg IVP Q6H PRN PRN Reason: Pain, severe (8-10) Lisinopril (Zestril) 40 mg PO DAILY [facility] Last Admin: 04/16/18 10:37 Dose: 40 mg Metoprolol Tartrate (Lopressor) 25 mg PO BID [facility] Last Admin: 04/16/18 12:40 Dose: Not Given Ondansetron HCl (Zofran Inj) 4 mg IVP Q6H PRN PRN Reason: Nausea/Vomiting Last Admin: 04/15/18 07:54 Dose: 4 mg Pantoprazole Sodium (Protonix Inj) 40 mg IVP DAILY [facility] Last Admin: 04/16/18 10:25 Dose: 40 mg Vitamin D (Vitamin D 400 Intl Units Tab) 600 intlu PO DAILY [facility] Last Admin: 04/16/18 10:28 Dose: 600 intlu - Labs Labs: 04/16/18 07:30 04/16/18 07:30 - Constitutional Appears: Non-toxic, No Acute Distress, Chronically Ill - Head Exam Head Exam: ATRAUMATIC, NORMOCEPHALIC - Eye Exam Eye Exam: EOMI, PERRL Pupil Exam: NORMAL ACCOMODATION, PERRL - ENT Exam ENT Exam: Mucous Membranes Moist, Normal External Ear Exam, TM's Normal Bilaterally - Neck Exam Neck Exam: Full ROM, Normal Inspection - Respiratory Exam Respiratory Exam: Clear to Ausculation Bilateral, NORMAL BREATHING PATTERN. absent: Rales, Rhonchi, Wheezes - Cardiovascular Exam Cardiovascular Exam: REGULAR RHYTHM, RRR, +S1, +S2 - GI/Abdominal Exam GI & Abdominal Exam: Soft, Normal Bowel Sounds. absent: Distended, Tenderness Additional comments: Mild tenderness to palpation in epigastric area - Extremities Exam Extremities Exam: Joint Swelling, Pedal Edema Additional comments: left transmetatarsal resection - Neurological Exam Neurological Exam: Alert, Awake, CN II-XII Intact, Oriented x3 - Psychiatric Exam Psychiatric exam: Normal Affect, Normal Mood - Skin Skin Exam: Dry, Normal Color, Warm Assessment and Plan - Assessment and Plan (Free Text) Assessment: 62 yo male with extensive past medical history that includes HTN, DM, dyslipidemia, CAD, CKD Stage III, and recent diagnosis of Osteomyelitis of the left foot. The patient was on IV Rocephin of 2 grams daily to complete 6 weeks of therapy. He is currently on week 5 of therapy of the Rocephin. The patient had severely elevated Lipase values to 1056. Question of Pancreatitis at this point. No prior history of Pancreatitis. ESR with significant elevation to 118. C-Reactive protein of 200 now. Still nausea at this time. Bilirubin mildly elevated. AST and ALT normal. HIV negative. Hepatitis studies negative. Consider Plain X-ray of abdomen or CT without contrast of abdomen. No leukocytosis. CT abdomen does not show pancreatitis but shows minimal perinephric stranding bilaterally (possible pyelonephritis). Hold all antibiotics at this time. Monitor fever and WBC trend. Monitor ESR trend. Monitor C-Reactive Protein. No new issues for far. Very slowly improving. Mild increase in leukocytosis. Obtain urine cultures before restarting any antibiotics. If restarting antibiotics, do not use Rocephin (the patient had 5 weeks of Rocephin so treatment should be covering organisms that Rocephin did not cover) and start with Cefepime (at least adds Pseudomonas coverage). Thank you for allowing me to participate in the care of the patient, we will follow with you.
[2018-04-16] MEDS: Insulin Regular 1 UNITS/0.01 ML ML SC STA ×2 (18:21→18:58)
--- NOTE | 2018-04-16 19:06 | CP.PCM.PN ---
<Beck Laurent - Last Filed: 04/16/18 19:03> Subjective - Date & Time of Evaluation Date of Evaluation: 04/16/18 Time of Evaluation: 11:45 - Subjective Subjective: Bcek Laurent DO PGY-1, Lead Custodian Medicine Progress Note Pt seen and examined at bedside. States nausea/vomiting has resolved. Only has nausea when he is given Reglan. Tolerating PO soft diet without concerns. Observed ambulating around unit in hallways. Denies any acute complaints, states he feels much better compared to yesterday. Denies headache, dizziness, fever, chills, chest pain, shortness of breath, abd pain, urinary complaints, or other symptoms. Objective - Vital Signs/Intake and Output Vital Signs (last 24 hours): Temp Pulse Resp BP Pulse Ox 97.4 F L 91 H 20 165/102 H 98 04/16/18 14:00 04/16/18 14:00 04/16/18 14:00 04/16/18 14:00 04/16/18 14:00 - Medications Medications: Current Medications Amlodipine Besylate (Norvasc) 10 mg PO DAILY [facility] Last Admin: 04/16/18 10:35 Dose: 10 mg Ascorbic Acid (Vitamin C 500 Mg Tab) 500 mg PO DAILY [facility] Last Admin: 04/16/18 10:35 Dose: 500 mg Aspirin (Ecotrin) 81 mg PO DAILY [facility] Last Admin: 04/16/18 10:35 Dose: 81 mg Atorvastatin Calcium (Lipitor) 40 mg PO HS [facility] Last Admin: 04/15/18 21:48 Dose: Not Given Collagenase (Santyl) 0 gm TOP DAILY [facility] Last Admin: 04/16/18 11:24 Dose: 1 applic Cyclobenzaprine HCl (Flexeril) 5 mg PO TID PRN PRN Reason: Hiccups Last Admin: 04/16/18 00:00 Dose: 5 mg Enoxaparin Sodium (Lovenox) 40 mg SC DAILY [facility] PRN Reason: Protocol Last Admin: 04/16/18 10:27 Dose: 40 mg Hydralazine HCl (Apresoline) 10 mg IVP Q6 PRN PRN Reason: SBP > 160 OR DBP > 100 Last Admin: 04/16/18 05:54 Dose: 10 mg Sodium Chloride (Sodium Chloride 0.9%) 1,000 mls @ 75 mls/hr IV .[id number] [facility] Last Admin: 04/16/18 12:11 Dose: 75 mls/hr Cefepime HCl (Maxipime 1gm) 1 gm in 100 mls @ 100 mls/hr IVPB Q12 [facility] PRN Reason: Protocol Insulin Detemir (Levemir) 4 unit SC AMHS [facility] Insulin Human Regular (Humulin R High) 0 units SC ACHS [facility] PRN Reason: Protocol Last Admin: 04/16/18 12:14 Dose: 15 units Ketorolac Tromethamine (Toradol) 15 mg IVP Q6H PRN PRN Reason: Pain, severe (8-10) Lisinopril (Zestril) 40 mg PO DAILY [facility] Last Admin: 04/16/18 10:37 Dose: 40 mg Metoprolol Tartrate (Lopressor) 25 mg PO BID [facility] Last Admin: 04/16/18 12:40 Dose: Not Given Ondansetron HCl (Zofran Inj) 4 mg IVP Q6H PRN PRN Reason: Nausea/Vomiting Last Admin: 04/15/18 07:54 Dose: 4 mg Pantoprazole Sodium (Protonix Inj) 40 mg IVP DAILY [facility] Last Admin: 04/16/18 10:25 Dose: 40 mg Vitamin D (Vitamin D 400 Intl Units Tab) 600 intlu PO DAILY [facility] Last Admin: 04/16/18 10:28 Dose: 600 intlu - Labs Labs: 04/16/18 07:30 04/16/18 07:30 - Constitutional Appears: Non-toxic, No Acute Distress - Head Exam Head Exam: ATRAUMATIC, NORMAL INSPECTION - Eye Exam Eye Exam: EOMI, Normal appearance, PERRL - ENT Exam ENT Exam: Mucous Membranes Moist - Respiratory Exam Respiratory Exam: Clear to Ausculation Bilateral, NORMAL BREATHING PATTERN - Cardiovascular Exam Cardiovascular Exam: REGULAR RHYTHM, +S1, +S2. absent: Gallop, Rubs, Murmur - GI/Abdominal Exam GI & Abdominal Exam: Soft, Normal Bowel Sounds. absent: Distended, Tenderness, Rebound - Extremities Exam Extremities Exam: Full ROM, Normal Capillary Refill Additional comments: L foot dressing applied, c/d/i - Neurological Exam Neurological Exam: Alert, Awake, CN II-XII Intact, Normal Gait, Oriented x3 - Skin Skin Exam: Dry, Intact, Normal Color, Warm Assessment and Plan - Assessment and Plan (Free Text) Assessment: 62 yo male with a PMH of DM II, CAD, and osteomyelitis who presents with 2 days of nausea, vomiting, on IV Rocephin 2 grams daily for 5 weeks. Initially thought to be 2/2 pancreatitis, but in setting of normal repeat lipase and absent Ct findings, possibly due to renal origin, r/o pyelonephritis. Plan: Vomiting, r/o pancreatitis - Reglan d/c'd due to pt nausea w/ taking med, zofran prn for nausea sxs - Continue: Soft diet, NS 75 ml/hr, Zofran, Toradol, ISS, Rocephin switched to Cefepime - Urine cx pending; U/a on admission demonstrated many bacteria, neg nitrites and LE - Abdominal US: unremarkable, CT abdomen and pelvis: mild perinephric stranding - GI following, Dr Chapman - ID following, Dr. Oates HTN Added metoprolol 25 mg PO bid C/w amlodipine, lisinopril, hydralazine prn Continue to trend Hx DM Placed pt on home regimen Levemir 4 units sc amhs Continue to trend fingersticks Hx Osteomyelitis Dr. Oates consulted, recs appreciated Podiatry following, recs appreciated PPX: Lovenox, Protonix Pt seen, examined with, and plan discussed with Dr. Rousseau, attending. <Darrell Rousseau - Last Filed: 04/16/18 21:59> Objective - Vital Signs/Intake and Output Vital Signs (last 24 hours): Temp Pulse Resp BP Pulse Ox 98.1 F 90 20 145/85 97 04/16/18 21:44 04/16/18 21:44 04/16/18 21:44 04/16/18 21:44 04/16/18 21:44 - Medications Medications: Current Medications Amlodipine Besylate (Norvasc) 10 mg PO DAILY [facility] Last Admin: 04/16/18 10:35 Dose: 10 mg Ascorbic Acid (Vitamin C 500 Mg Tab) 500 mg PO DAILY [facility] Last Admin: 04/16/18 10:35 Dose: 500 mg Aspirin (Ecotrin) 81 mg PO DAILY [facility] Last Admin: 04/16/18 10:35 Dose: 81 mg Atorvastatin Calcium (Lipitor) 40 mg PO HS [facility] Last Admin: 04/16/18 21:52 Dose: 40 mg Collagenase (Santyl) 0 gm TOP DAILY [facility] Last Admin: 04/16/18 11:24 Dose: 1 applic Cyclobenzaprine HCl (Flexeril) 5 mg PO TID PRN PRN Reason: Hiccups Last Admin: 04/16/18 00:00 Dose: 5 mg Enoxaparin Sodium (Lovenox) 40 mg SC DAILY [facility] PRN Reason: Protocol Last Admin: 04/16/18 10:27 Dose: 40 mg Hydralazine HCl (Apresoline) 10 mg IVP Q6 PRN PRN Reason: SBP > 160 OR DBP > 100 Last Admin: 04/16/18 18:50 Dose: 10 mg Sodium Chloride (Sodium Chloride 0.9%) 1,000 mls @ 75 mls/hr IV .[id number] [facility] Last Admin: 04/16/18 12:11 Dose: 75 mls/hr Cefepime HCl (Maxipime 1gm) 1 gm in 100 mls @ 100 mls/hr IVPB Q12 [facility] PRN Reason: Protocol Last Admin: 04/16/18 21:42 Dose: 100 mls/hr Insulin Detemir (Levemir) 4 unit SC AMHS [facility] Last Admin: 04/16/18 21:50 Dose: Not Given Insulin Human Regular (Humulin R High) 0 units SC ACHS [facility] PRN Reason: Protocol Last Admin: 04/16/18 21:48 Dose: Not Given Ketorolac Tromethamine (Toradol) 15 mg IVP Q6H PRN PRN Reason: Pain, severe (8-10) Lisinopril (Zestril) 40 mg PO DAILY [facility] Last Admin: 04/16/18 10:37 Dose: 40 mg Metoprolol Tartrate (Lopressor) 25 mg PO BID [facility] Last Admin: 04/16/18 19:00 Dose: 25 mg Ondansetron HCl (Zofran Inj) 4 mg IVP Q6H PRN PRN Reason: Nausea/Vomiting Last Admin: 04/15/18 07:54 Dose: 4 mg Pantoprazole Sodium (Protonix Inj) 40 mg IVP DAILY [facility] Last Admin: 04/16/18 10:25 Dose: 40 mg Vitamin D (Vitamin D 400 Intl Units Tab) 600 intlu PO DAILY [facility] Last Admin: 04/16/18 10:28 Dose: 600 intlu - Labs Labs: 04/16/18 07:30 04/16/18 07:30 Attending/Attestation - Attestation I have personally seen and examined this patient.: Yes I have fully participated in the care of the patient.: Yes I have reviewed all pertinent clinical information, including history, physical exam and plan: Yes Notes (Text): patient seen and examined at bedside. labs, vitals, notes and consultation noted. BP regimen titrated. Continue regimen of long acting insulin and ISS. Obtain Urine C/S and start IV antibiotics. Outpatient Urology evaluation will be helpful. ID and Podiatry follow up ongoing. Agree with the plan of care as discussed and outlined by the resident.
[2018-04-16] MEDS: Cefepime 1gm in NS 100ml 1 GM/100 ML BAG IVPB SCH (21:42)
[2018-04-16] MEDS: Insulin Detemir 100 units/ml Vial (Levemir) SC SCH (21:50)
[2018-04-17 08:29] LABS: BASO # 0.01 K/mm3 (0.0-2.0); BASO % 0.1 % (0.0-3.0); EOS % 0.2 % (1.5-5.0); GRAN % 88.1 % (50.0-68.0); HEMOGLOBIN 10.5 g/dL (14.0-18.0); LYMPH # 0.6 (1.2-3.4); LYMPH % 3.2 % (22.0-35.0); MEAN CELL VOLUME 88.1 fl (80.0-105.0); MEAN CORPUSCULAR HEMOGLOBIN 29.7 pg (25.0-35.0); MEAN CORPUSCULAR HGB CONC 33.7 g/dl (31.0-37.0); MEAN PLATELET VOLUME 9.2 fl (7.0-11.0); MONO # 1.5 (0.1-0.6); MONO % 8.4 % (1.0-6.0); PLATELET COUNT 263 10^3/uL (120.0-450.0); RBC 3.54 10^6/uL (3.5-6.1); RED CELL DISTRIBUTION WIDTH 13.6 % (11.5-14.5); WHITE BLOOD COUNT 17.3 10^3/ul (4.5-11.0)
[2018-04-17] MEDS: Insulin Reg-HIGH-Coverage SC SCH ×2 (08:40→11:34)
[2018-04-17 08:49] LABS: ALB/GLOB RATIO 1.1 (1.1-1.8); ALBUMIN 3.5 g/dL (3.0-4.8); ALT/SGPT 29 U/L (7-56); AST/SGOT 40 U/L (17-59); BLOOD UREA NITROGEN 33 mg/dL (7-21); CALCIUM 8.8 mg/dL (8.4-10.5); GFR NON-AFRICAN AMERICAN > 60
[2018-04-17 09:28] LABS: BAND 2 % (0-2); LYMPHOCYTE 1 % (22.0-35.0); MONOCYTE 5 % (1.0-6.0); NEUTROPHIL 92 % (50.0-70.0); PLATELET ESTIMATE NORMAL (NORMAL)
--- NOTE | 2018-04-17 09:32 | CP.PCM.PN ---
Subjective - Date & Time of Evaluation Date of Evaluation: 04/17/18 Time of Evaluation: 09:28 - Subjective Subjective: Podiatry Progress Note - Dr. Jauregui 62 y/o male seen and evaluated at bedside for left transmetatarsal amputation nonhealing wound. Patient hemodynamically stable and NAD. Reports continued nausea, denies abdominal pain or further episodes of emesis. No new complaints to left TMA wound. Patient states he has been WBAT LLE in surgical shoe, ambulating w/o issues. Denies fever, chills, GUZMAN, dizziness, chest pain, palpitations. Objective - Vital Signs/Intake and Output Vital Signs (last 24 hours): Temp Pulse Resp BP Pulse Ox 100.7 F H 95 H 20 149/94 H 99 04/17/18 06:00 04/17/18 06:00 04/17/18 06:00 04/17/18 06:00 04/17/18 06:00 Intake and Output: 04/17/18 04/17/18 06:59 18:59 Intake Total 1770 Output Total 150 Balance 1620 - Medications Medications: Current Medications Acetaminophen (Tylenol 325mg Tab) 650 mg PO Q6H PRN PRN Reason: Fever >100.4 F Last Admin: 04/17/18 06:10 Dose: 650 mg Amlodipine Besylate (Norvasc) 10 mg PO DAILY [facility] Last Admin: 04/16/18 10:35 Dose: 10 mg Ascorbic Acid (Vitamin C 500 Mg Tab) 500 mg PO DAILY [facility] Last Admin: 04/16/18 10:35 Dose: 500 mg Aspirin (Ecotrin) 81 mg PO DAILY [facility] Last Admin: 04/16/18 10:35 Dose: 81 mg Atorvastatin Calcium (Lipitor) 40 mg PO HS [facility] Last Admin: 04/16/18 21:52 Dose: 40 mg Collagenase (Santyl) 0 gm TOP DAILY [facility] Last Admin: 04/16/18 11:24 Dose: 1 applic Cyclobenzaprine HCl (Flexeril) 5 mg PO TID PRN PRN Reason: Hiccups Last Admin: 04/16/18 00:00 Dose: 5 mg Enoxaparin Sodium (Lovenox) 40 mg SC DAILY [facility] PRN Reason: Protocol Last Admin: 04/16/18 10:27 Dose: 40 mg Hydralazine HCl (Apresoline) 10 mg IVP Q6 PRN PRN Reason: SBP > 160 OR DBP > 100 Last Admin: 04/16/18 18:50 Dose: 10 mg Sodium Chloride (Sodium Chloride 0.9%) 1,000 mls @ 75 mls/hr IV .[id number] [facility] Last Admin: 04/16/18 12:11 Dose: 75 mls/hr Cefepime HCl (Maxipime 1gm) 1 gm in 100 mls @ 100 mls/hr IVPB Q12 [facility] PRN Reason: Protocol Last Admin: 04/16/18 21:42 Dose: 100 mls/hr Insulin Detemir (Levemir) 4 unit SC AMHS [facility] Last Admin: 04/16/18 21:50 Dose: Not Given Insulin Human Regular (Humulin R High) 0 units SC ACHS [facility] PRN Reason: Protocol Last Admin: 04/17/18 08:40 Dose: 4 units Ketorolac Tromethamine (Toradol) 15 mg IVP Q6H PRN PRN Reason: Pain, severe (8-10) Lisinopril (Zestril) 40 mg PO DAILY [facility] Last Admin: 04/16/18 10:37 Dose: 40 mg Metoprolol Tartrate (Lopressor) 25 mg PO BID [facility] Last Admin: 04/16/18 19:00 Dose: 25 mg Ondansetron HCl (Zofran Inj) 4 mg IVP Q6H PRN PRN Reason: Nausea/Vomiting Last Admin: 04/15/18 07:54 Dose: 4 mg Pantoprazole Sodium (Protonix Inj) 40 mg IVP DAILY [facility] Last Admin: 04/16/18 10:25 Dose: 40 mg Vitamin D (Vitamin D 400 Intl Units Tab) 600 intlu PO DAILY [facility] Last Admin: 04/16/18 10:28 Dose: 600 intlu - Labs Labs: 04/17/18 08:20 04/17/18 08:20 - Constitutional Appears: Well, Non-toxic, No Acute Distress - Head Exam Head Exam: ATRAUMATIC, NORMOCEPHALIC - Extremities Exam Additional comments: Dressing to LLE clean/dry/intact LLE focused exam: Vasc: DP pulse palpable 1/4, PT pulse non palpable. Temperature gradient cool to cool. Capillary fill time good to TMA flap. Minimal nonpitting edema noted. Neuro: Protective sensation diminished. Derm: Full thickness ulceration measuring approximately 3.5 x 3.5 x 0.1 cm noted to distal-lateral aspecto of TMA flap extending down to subcutaneous tissue - ulcer noted to have 70% fibrous-necrotic base with hyperkeratotic rim; no serous drainage; no purulence; no fluctuance; no undermining; no tunneling; no probe to bone; no malodor; no clinical signs of infection present. Ortho: S/p transmetatarsal amputation. No tenderness to palpation amputation site. Muscle strength 5/5 for all dorsiflexors, plantarflexors, inverters, and everters. - Neurological Exam Neurological Exam: Alert, Awake, Oriented x3 - Psychiatric Exam Psychiatric exam: Normal Affect, Normal Mood Assessment and Plan - Assessment and Plan (Free Text) Assessment: 62 y/o male 7 weeks s/p left transmetarsal amputation with non-healing ulceration (DOS 02/24/18) Plan: Patient seen and evaluated at bedside Discussed with attending, Dr. Jauregui Chart labs and vitals reviewed- WBC 17.3 TMA ulceration appear stable w/no signs of infection, will continue to monitor Continue local wound care: saline flush, santyl, DSD Activity: WBAT LLE in surgical shoe with the assistance of crutches Continue PT/OT Per ID, hold Rocephin, patient currently on Cefepime Monitor fever and trend WBC Podiatry will continue to follow
[2018-04-17] MEDS: Insulin Detemir 100 units/ml Vial (Levemir) SC SCH (11:27)
[2018-04-17] MEDS: Enoxaparin 40 mg Syringe SC SCH (11:28)
[2018-04-17] MEDS: Cefepime 1gm in NS 100ml 1 GM/100 ML BAG IVPB SCH (11:31)
[2018-04-17] MEDS: Collagenase 250 Units/gm Ointment(30 gm) TOP SCH (11:32)
[2018-04-17] MEDS: Cholecalciferol 400 Intl Units Tab PO SCH (11:32)
[2018-04-17 15:29] VITALS: BP 133/87; PULSE 85; RESP 18; TEMP 98.5; O2SAT 98
--- NOTE | 2018-04-17 17:16 | CP.PCM.PN ---
Subjective - Date & Time of Evaluation Date of Evaluation: 04/17/18 Time of Evaluation: 14:15 - Subjective Subjective: Infectious Disease Follow Up: April 17, 2018 62 yo male with PMHx of DM, CAD, HTN, dyslipidemia, and history of Left heel osteomyelitis that ultimately required left transmetatarsal resection. The patient was still on IV Rocephin for treatment of osteomyelitis with MSSA. The patient was on week 5 of therapy. He began to have intractable nausea and vomiting for the past 2 days. The patient has known noncompliance with his diabetic treatment. He is currently complaining that he cannot swallow his blood pressure medications. The patient has known issues with GERDs as well. ESR has increased drastically to 118 from 27 a week ago. Lipase was found to be 1056. Unremarkable ultrasound of the gallbladder/abdomen. Nausea still. The patient still has not had any bowel movements. Tolerating liquid diet. Feels better but still with nausea. Lipase at a normal level now. The patient with the question of pyelonephritis from the CT scan of the abd/pelvis. No growth in blood cultures. Patient feeling better today. Objective - Vital Signs/Intake and Output Vital Signs (last 24 hours): Temp Pulse Resp BP Pulse Ox 98.5 F 85 18 133/87 98 04/17/18 14:00 04/17/18 14:00 04/17/18 14:00 04/17/18 14:00 04/17/18 14:00 Intake and Output: 04/17/18 04/17/18 06:59 18:59 Intake Total 1770 Output Total 150 Balance 1620 - Labs Labs: 04/17/18 08:20 04/17/18 08:20 - Constitutional Appears: Non-toxic, No Acute Distress, Chronically Ill - Head Exam Head Exam: ATRAUMATIC, NORMOCEPHALIC - Eye Exam Eye Exam: EOMI, PERRL Pupil Exam: NORMAL ACCOMODATION, PERRL - ENT Exam ENT Exam: Mucous Membranes Moist, Normal External Ear Exam, TM's Normal Bilaterally - Neck Exam Neck Exam: Full ROM, Normal Inspection - Respiratory Exam Respiratory Exam: Clear to Ausculation Bilateral, NORMAL BREATHING PATTERN. absent: Rales, Rhonchi, Wheezes - Cardiovascular Exam Cardiovascular Exam: REGULAR RHYTHM, RRR, +S1, +S2 - GI/Abdominal Exam GI & Abdominal Exam: Soft, Normal Bowel Sounds. absent: Distended, Tenderness - Extremities Exam Extremities Exam: Joint Swelling, Pedal Edema Additional comments: left transmetatarsal resection - Neurological Exam Neurological Exam: Alert, Awake, CN II-XII Intact, Oriented x3 - Psychiatric Exam Psychiatric exam: Normal Affect, Normal Mood - Skin Skin Exam: Dry, Normal Color, Warm Assessment and Plan - Assessment and Plan (Free Text) Assessment: 62 yo male with extensive past medical history that includes HTN, DM, dyslipidemia, CAD, CKD Stage III, and recent diagnosis of Osteomyelitis of the left foot. The patient was on IV Rocephin of 2 grams daily to complete 6 weeks of therapy. He is currently on week 5 of therapy of the Rocephin. The patient had severely elevated Lipase values to 1056. Question of Pancreatitis at this point. No prior history of Pancreatitis. ESR with significant elevation to 118. C-Reactive protein of 200 now. Still nausea at this time. Bilirubin mildly elevated. AST and ALT normal. HIV negative. Hepatitis studies negative. Consider Plain X-ray of abdomen or CT without contrast of abdomen. No leukocytosis. CT abdomen does not show pancreatitis but shows minimal perinephric stranding bilaterally (possible pyelonephritis). Hold all antibiotics at this time. Monitor fever and WBC trend. Monitor ESR trend. Monitor C-Reactive Protein. No new issues for far. Very slowly improving. Mild increase in leukocytosis. Obtain urine cultures before restarting any antibiotics. If restarting antibiotics, do not use Rocephin (the patient had 5 weeks of Rocephin so treatment should be covering organisms that Rocephin did not cover) and start with Cefepime (at least adds Pseudomonas coverage). Clinically improving. Thank you for allowing me to participate in the care of the patient, we will follow with you.
--- NOTE | 2018-04-17 19:31 | CP.PCM.DIS ---
<Beck Laurent - Last Filed: 04/17/18 19:32> Provider - Provider Date of Admission: 04/12/18 11:18 Attending physician: Carlos Mattson Consults: GI - Dr. Chapman Podiatry - Dr. Leyla SANTANA - Dr. MENSAH Time Spent in preparation of Discharge (in minutes): 45 Hospital Course - Lab Results Lab Results: Micro Results 04/12/18 16:48 Blood-Venous Blood Culture - Final NO GROWTH AFTER 5 DAYS 04/12/18 16:48 Blood-Venous Gram Stain - Final TEST NOT PERFORMED Most Recent Lab Values WBC 17.3 10^3/ul (4.5-11.0) H D 04/17/18 08:20 RBC 3.54 10^6/uL (3.5-6.1) 04/17/18 08:20 Hgb 10.5 g/dL (14.0-18.0) L 04/17/18 08:20 Hct 31.2 % (42.0-52.0) L 04/17/18 08:20 MCV 88.1 fl (80.0-105.0) 04/17/18 08:20 MCH 29.7 pg (25.0-35.0) 04/17/18 08:20 MCHC 33.7 g/dl (31.0-37.0) 04/17/18 08:20 RDW 13.6 % (11.5-14.5) 04/17/18 08:20 Plt Count 263 10^3/uL (120.0-450.0) 04/17/18 08:20 MPV 9.2 fl (7.0-11.0) 04/17/18 08:20 Gran % 88.1 % (50.0-68.0) H 04/17/18 08:20 Lymph % (Auto) 3.2 % (22.0-35.0) L 04/17/18 08:20 Hemphill % (Auto) 8.4 % (1.0-6.0) H 04/17/18 08:20 Eos % (Auto) 0.2 % (1.5-5.0) L 04/17/18 08:20 Baso % (Auto) 0.1 % (0.0-3.0) 04/17/18 08:20 Gran # 15.20 (1.4-6.5) H 04/17/18 08:20 Lymph # (Auto) 0.6 (1.2-3.4) L 04/17/18 08:20 Hemphill # (Auto) 1.5 (0.1-0.6) H 04/17/18 08:20 Eos # (Auto) 0.0 (0.0-0.7) 04/17/18 08:20 Baso # (Auto) 0.01 K/mm3 (0.0-2.0) 04/17/18 08:20 Neutrophils % (Manual) 92 % (50.0-70.0) H 04/17/18 08:20 Band Neutrophils % 2 % (0-2) 04/17/18 08:20 Lymphocytes % (Manual) 1 % (22.0-35.0) L 04/17/18 08:20 Monocytes % (Manual) 5 % (1.0-6.0) 04/17/18 08:20 Platelet Evaluation Normal (NORMAL) 04/17/18 08:20 ESR 75 mm/hr (0.00-15.0) H 04/16/18 07:30 Sodium 140 mmol/L (132-148) 04/17/18 08:20 Potassium 3.9 mmol/L (3.6-5.0) 04/17/18 08:20 Chloride 106 mmol/L (98-107) 04/17/18 08:20 Carbon Dioxide 23 mmol/L (21-33) 04/17/18 08:20 Anion Gap 15 (10-20) 04/17/18 08:20 BUN 33 mg/dL (7-21) H 04/17/18 08:20 Creatinine 1.2 mg/dl (0.8-1.5) 04/17/18 08:20 Est GFR ( Amer) > 60 04/17/18 08:20 Est GFR (Non-Af Amer) > 60 04/17/18 08:20 POC Glucose (mg/dL) 217 mg/dL (65-110) H 04/17/18 06:45 Random Glucose 203 mg/dL (70-110) H 04/17/18 08:20 Hemoglobin A1c 6.6 % (4.2-6.5) H D 04/12/18 13:25 Calcium 8.8 mg/dL (8.4-10.5) 04/17/18 08:20 Phosphorus 4.0 mg/dL (2.5-4.5) 04/13/18 06:00 Magnesium 2.4 mg/dL (1.7-2.2) H 04/13/18 06:00 Total Bilirubin 0.8 mg/dL (0.2-1.3) 04/17/18 08:20 Direct Bilirubin 0.7 mg/dL (0.0-0.4) H 04/12/18 16:41 AST 40 U/L (17-59) 04/17/18 08:20 ALT 29 U/L (7-56) 04/17/18 08:20 Alkaline Phosphatase 210 U/L (38-126) H 04/17/18 08:20 Troponin I 0.04 ng/mL 04/12/18 16:41 C-Reactive Protein 68.00 mg/L (0.0-9.9) H 04/16/18 07:30 Total Protein 6.8 g/dL (5.8-8.3) 04/17/18 08:20 Albumin 3.5 g/dL (3.0-4.8) 04/17/18 08:20 Globulin 3.3 gm/dL 04/17/18 08:20 Albumin/Globulin Ratio 1.1 (1.1-1.8) 04/17/18 08:20 Triglycerides 100 mg/dL (35-160) 04/13/18 06:00 Cholesterol 131 mg/dL (130-200) 04/13/18 06:00 LDL Cholesterol Direct 71 mg/dL (0-129) 04/13/18 06:00 HDL Cholesterol 26 mg/dL (29-60) L 04/13/18 06:00 Lipase 224 U/L (23-300) 04/16/18 06:00 Urine Color Yellow (YELLOW) 04/13/18 12:00 Urine Appearance Clear (CLEAR) 04/13/18 12:00 Urine pH 6.0 (4.7-8.0) 04/13/18 12:00 Ur Specific Lima >= 1.030 (1.005-1.035) 04/13/18 12:00 Urine Protein >=300 mg/dL (<30 mg/dL) H 04/13/18 12:00 Urine Glucose (UA) 500 mg/dL (NEGATIVE) H 04/13/18 12:00 Urine Ketones 15 mg/dL (NEGATIVE) H 04/13/18 12:00 Urine Blood Small (NEGATIVE) H 04/13/18 12:00 Urine Nitrate Negative (NEGATIVE) 04/13/18 12:00 Urine Bilirubin Small (NEGATIVE) H 04/13/18 12:00 Urine Urobilinogen 0.2 E.U./dL (<1 E.U./dL) 04/13/18 12:00 Ur Leukocyte Esterase Negative Christiane/uL (NEGATIVE) 04/13/18 12:00 Urine RBC 5 - 10 /hpf (0-2) 04/13/18 12:00 Urine WBC 1 - 3 /hpf (0-6) 04/13/18 12:00 Ur Epithelial Cells None /hpf (0-5) 04/13/18 12:00 Amorphous Sediment Few 04/13/18 12:00 Urine Bacteria Many (NEG) 04/13/18 12:00 Fine Granular Casts 0 - 2 /hpf (0-2) 04/13/18 12:00 Urine Opiates Screen Negative (NEGATIVE) 04/12/18 22:52 Urine Methadone Screen Negative (NEGATIVE) 04/12/18 22:52 Ur Barbiturates Screen Negative (NEGATIVE) 04/12/18 22:52 Ur Phencyclidine Scrn Negative (NEGATIVE) 04/12/18 22:52 Ur Amphetamines Screen Negative (NEGATIVE) 04/12/18 22:52 U Benzodiazepines Scrn Negative (NEGATIVE) 04/12/18 22:52 U Oth Cocaine Metabols Negative (NEGATIVE) 04/12/18 22:52 U Cannabinoids Screen Negative (NEGATIVE) 04/12/18 22:52 Alcohol, Quantitative < 10 mg/dL (0-10) 04/12/18 08:30 Hepatitis A IgM Ab Negative (NEGATIVE) 04/12/18 16:41 Hep Bs Antigen Negative (NEGATIVE) 04/12/18 16:41 Hep B Core IgM Ab Negative (NEGATIVE) 04/12/18 16:41 Hepatitis C Antibody Negative (NEGATIVE) 04/12/18 16:41 - Hospital Course Hospital Course: Beck Laurent DO PGY-1, Senior Animal [employer]er Medicine Discharge Summary 62-year-old male with a past medical history of diabetes, CAD, hypertension, dyslipidemia, osteomyelitis status post left transmetatarsal resection on IV Rocephin 2 g daily for the past 5 weeks who presented with two days of intractable nausea and vomiting. He reported vomiting 10 times in the past two days. He reported the vomit is yellow in color, non-bilious, non-bloody. He reported passing normal bowel movements without any kind of diarrhea. He also denied any dysuria, abdominal pain, rashes, hearing changes, unilateral weakness or numbness. He reported worsening of his reflux/dyspeptic symptoms when swallowing pills. In fact on day of admission he was unable to swallow whole his blood pressure medication . Other pertinent findings were that he was noncompliant with his diabetes medications. He reported taking metformin whenever his sugars are low and insulin only when he thinks his sugars are high. Otherwise, 12 point review of system is negative. He denied any alcohol use since November of this year. Gallbladder U/s was unremarkable. Abd CT demonstrated minimal perinephric stranding b/l which could be 2/2 pyelonephritis. Lipase was elevated on admission without CT findings. Pt was slowly advanced to regular diet, and given Reglan, which helped improve symptoms. Clinical presentation initially thought to be 2/2 pancreatitis, but in setting of normal repeat lipase and absent Ct findings, possibly due to renal origin, r/o pyelonephritis. Pt was placed on antibiotics inpatient, and as per Dr. Mensah, was able to be discharged on PO keflex for 3 additional days of therapy. Pt was instructed over importance of checking fingersticks at home and taking his insulin as prescribed. Pt was instructed to f/u with podiatry (Dr. Coley) and Dr. Stockton (PCP) within 1-2 weeks of discharge for follow-up. Pt was given medication refills for home meds. Pt's HTN meds were optimized and adjusted due to elevated pressures inpatient. Discharge Exam - Head Exam Head Exam: ATRAUMATIC, NORMOCEPHALIC - Eye Exam Eye Exam: EOMI, Normal appearance, PERRL - ENT Exam ENT Exam: Mucous Membranes Moist, Normal Oropharynx - Respiratory Exam Respiratory Exam: Clear to PA & Lateral, NORMAL BREATHING PATTERN, UNREMARKABLE - Cardiovascular Exam Cardiovascular Exam: REGULAR RHYTHM, +S1, +S2 - GI/Abdominal Exam GI & Abdominal Exam: Normal Bowel Sounds, Soft, Unremarkable - Extremities Exam Extremities exam: full ROM, normal capillary refill, pedal pulses present - Neurological Exam Neurological exam: Alert, CN II-XII Intact, Oriented x3 - Skin Skin Exam: Dry, Intact, Normal Color, Warm Discharge Plan - Discharge Medications Prescriptions: amLODIPine [Norvasc] 10 mg PO DAILY #30 tab Aspirin [Ecotrin] 81 mg PO DAILY #14 tabec Atorvastatin [Lipitor] 40 mg PO DAILY #14 tab Cephalexin [Keflex] 500 mg PO BID #6 capsule Lisinopril [Zestril] 40 mg PO DAILY #14 tab Metoprolol Tartrate [Lopressor] 25 mg PO BID #28 tab - Follow Up Plan Condition: GOOD Disposition: HOME/ ROUTINE Instructions: Hiccups, Pancreatitis (DC), Urinary Tract Infection in Men (DC), Cellulitis (DC) Additional Instructions: Please follow-up with your primary care physician (Dr. Stockton) within 1 week after discharge from the hospital. Please follow-up with podiarty (Dr. Coley) within 1-2 weeks after discharge. Please resume home medications as prescribed. Note Lisinopril was increased to 40 mg daily, and new medication Metoprolol 25 mg twice daily, which will be both taken for blood pressure in addition to your Amlodipine 10 mg daily. Take insulin as prescribed, please check fingersticks as home, and adhere to carb-controlled diet. Take antibiotic (Keflex) twice daily for 3 days. Should symptoms recur or worsen, please go to your primary care physician's office, or report to your nearest emergency department. Referrals: Vanessa Stockton MD [Medical Doctor] - <Darrell Rousseau - Last Filed: 04/17/18 21:57> Provider - Provider Date of Admission: 04/12/18 11:18 Attending physician: [facility] Course - Lab Results Lab Results: Micro Results 04/12/18 16:48 Blood-Venous Blood Culture - Final NO GROWTH AFTER 5 DAYS 04/12/18 16:48 Blood-Venous Gram Stain - Final TEST NOT PERFORMED Most Recent Lab Values WBC 17.3 10^3/ul (4.5-11.0) H D 04/17/18 08:20 RBC 3.54 10^6/uL (3.5-6.1) 04/17/18 08:20 Hgb 10.5 g/dL (14.0-18.0) L 04/17/18 08:20 Hct 31.2 % (42.0-52.0) L 04/17/18 08:20 MCV 88.1 fl (80.0-105.0) 04/17/18 08:20 MCH 29.7 pg (25.0-35.0) 04/17/18 08:20 MCHC 33.7 g/dl (31.0-37.0) 04/17/18 08:20 RDW 13.6 % (11.5-14.5) 04/17/18 08:20 Plt Count 263 10^3/uL (120.0-450.0) 04/17/18 08:20 MPV 9.2 fl (7.0-11.0) 04/17/18 08:20 Gran % 88.1 % (50.0-68.0) H 04/17/18 08:20 Lymph % (Auto) 3.2 % (22.0-35.0) L 04/17/18 08:20 Hemphill % (Auto) 8.4 % (1.0-6.0) H 04/17/18 08:20 Eos % (Auto) 0.2 % (1.5-5.0) L 04/17/18 08:20 Baso % (Auto) 0.1 % (0.0-3.0) 04/17/18 08:20 Gran # 15.20 (1.4-6.5) H 04/17/18 08:20 Lymph # (Auto) 0.6 (1.2-3.4) L 04/17/18 08:20 Hemphill # (Auto) 1.5 (0.1-0.6) H 04/17/18 08:20 Eos # (Auto) 0.0 (0.0-0.7) 04/17/18 08:20 Baso # (Auto) 0.01 K/mm3 (0.0-2.0) 04/17/18 08:20 Neutrophils % (Manual) 92 % (50.0-70.0) H 04/17/18 08:20 Band Neutrophils % 2 % (0-2) 04/17/18 08:20 Lymphocytes % (Manual) 1 % (22.0-35.0) L 04/17/18 08:20 Monocytes % (Manual) 5 % (1.0-6.0) 04/17/18 08:20 Platelet Evaluation Normal (NORMAL) 04/17/18 08:20 ESR 75 mm/hr (0.00-15.0) H 04/16/18 07:30 Sodium 140 mmol/L (132-148) 04/17/18 08:20 Potassium 3.9 mmol/L (3.6-5.0) 04/17/18 08:20 Chloride 106 mmol/L (98-107) 04/17/18 08:20 Carbon Dioxide 23 mmol/L (21-33) 04/17/18 08:20 Anion Gap 15 (10-20) 04/17/18 08:20 BUN 33 mg/dL (7-21) H 04/17/18 08:20 Creatinine 1.2 mg/dl (0.8-1.5) 04/17/18 08:20 Est GFR ( Amer) > 60 04/17/18 08:20 Est GFR (Non-Af Amer) > 60 04/17/18 08:20 POC Glucose (mg/dL) 217 mg/dL (65-110) H 04/17/18 06:45 Random Glucose 203 mg/dL (70-110) H 04/17/18 08:20 Hemoglobin A1c 6.6 % (4.2-6.5) H D 04/12/18 13:25 Calcium 8.8 mg/dL (8.4-10.5) 04/17/18 08:20 Phosphorus 4.0 mg/dL (2.5-4.5) 04/13/18 06:00 Magnesium 2.4 mg/dL (1.7-2.2) H 04/13/18 06:00 Total Bilirubin 0.8 mg/dL (0.2-1.3) 04/17/18 08:20 Direct Bilirubin 0.7 mg/dL (0.0-0.4) H 04/12/18 16:41 AST 40 U/L (17-59) 04/17/18 08:20 ALT 29 U/L (7-56) 04/17/18 08:20 Alkaline Phosphatase 210 U/L (38-126) H 04/17/18 08:20 Troponin I 0.04 ng/mL 04/12/18 16:41 C-Reactive Protein 68.00 mg/L (0.0-9.9) H 04/16/18 07:30 Total Protein 6.8 g/dL (5.8-8.3) 04/17/18 08:20 Albumin 3.5 g/dL (3.0-4.8) 04/17/18 08:20 Globulin 3.3 gm/dL 04/17/18 08:20 Albumin/Globulin Ratio 1.1 (1.1-1.8) 04/17/18 08:20 Triglycerides 100 mg/dL (35-160) 04/13/18 06:00 Cholesterol 131 mg/dL (130-200) 04/13/18 06:00 LDL Cholesterol Direct 71 mg/dL (0-129) 04/13/18 06:00 HDL Cholesterol 26 mg/dL (29-60) L 04/13/18 06:00 Lipase 224 U/L (23-300) 04/16/18 06:00 Urine Color Yellow (YELLOW) 04/13/18 12:00 Urine Appearance Clear (CLEAR) 04/13/18 12:00 Urine pH 6.0 (4.7-8.0) 04/13/18 12:00 Ur Specific Lima >= 1.030 (1.005-1.035) 04/13/18 12:00 Urine Protein >=300 mg/dL (<30 mg/dL) H 04/13/18 12:00 Urine Glucose (UA) 500 mg/dL (NEGATIVE) H 04/13/18 12:00 Urine Ketones 15 mg/dL (NEGATIVE) H 04/13/18 12:00 Urine Blood Small (NEGATIVE) H 04/13/18 12:00 Urine Nitrate Negative (NEGATIVE) 04/13/18 12:00 Urine Bilirubin Small (NEGATIVE) H 04/13/18 12:00 Urine Urobilinogen 0.2 E.U./dL (<1 E.U./dL) 04/13/18 12:00 Ur Leukocyte Esterase Negative Christiane/uL (NEGATIVE) 04/13/18 12:00 Urine RBC 5 - 10 /hpf (0-2) 04/13/18 12:00 Urine WBC 1 - 3 /hpf (0-6) 04/13/18 12:00 Ur Epithelial Cells None /hpf (0-5) 04/13/18 12:00 Amorphous Sediment Few 04/13/18 12:00 Urine Bacteria Many (NEG) 04/13/18 12:00 Fine Granular Casts 0 - 2 /hpf (0-2) 04/13/18 12:00 Urine Opiates Screen Negative (NEGATIVE) 04/12/18 22:52 Urine Methadone Screen Negative (NEGATIVE) 04/12/18 22:52 Ur Barbiturates Screen Negative (NEGATIVE) 04/12/18 22:52 Ur Phencyclidine Scrn Negative (NEGATIVE) 04/12/18 22:52 Ur Amphetamines Screen Negative (NEGATIVE) 04/12/18 22:52 U Benzodiazepines Scrn Negative (NEGATIVE) 04/12/18 22:52 U Oth Cocaine Metabols Negative (NEGATIVE) 04/12/18 22:52 U Cannabinoids Screen Negative (NEGATIVE) 04/12/18 22:52 Alcohol, Quantitative < 10 mg/dL (0-10) 04/12/18 08:30 Hepatitis A IgM Ab Negative (NEGATIVE) 04/12/18 16:41 Hep Bs Antigen Negative (NEGATIVE) 04/12/18 16:41 Hep B Core IgM Ab Negative (NEGATIVE) 04/12/18 16:41 Hepatitis C Antibody Negative (NEGATIVE) 04/12/18 16:41 Attending/Attestation - Attestation I have personally seen and examined this patient.: Yes I have fully participated in the care of the patient.: Yes I have reviewed all pertinent clinical information, including history, physical exam and plan: Yes Notes (Text): 04/17/18 21:55 Patient seen and examined at bedside. Vitals and notes reviewed. Overall feels better with improvement of GI symptoms and tolerating his diet well. Intermittent hiccups noted. Agreew with the discharge plan as outlined and discussed with the ID service.
== END 2018-04-17 16:15 | disposition home or self-care (01) | DRG 690 ==
LOC: ED 08:01 → ERH 11:18 → 5RSO 13:08
PROVIDERS: ADMIT Hospitalist; ATTEND Internal Medicine
DX: N12 Tubulo-interstitial nephritis, not specified as acute or chronic (principal); M86.9 Osteomyelitis, unspecified; E11.22 Type 2 diabetes mellitus with diabetic chronic kidney disease; E11.40 Type 2 diabetes mellitus with diabetic neuropathy, unspecified; E11.51 Type 2 diabetes mellitus with diabetic peripheral angiopathy without gangrene; E11.621 Type 2 diabetes mellitus with foot ulcer; E11.69 Type 2 diabetes mellitus with other specified complication; E78.5 Hyperlipidemia, unspecified; N18.3 Chronic kidney disease, stage 3 (moderate); L97.509 Non-pressure chronic ulcer of other part of unspecified foot with unspecified severity; I12.9 Hypertensive chronic kidney disease with stage 1 through stage 4 chronic kidney disease, or unspecified chronic kidney disease; I25.10 Atherosclerotic heart disease of native coronary artery without angina pectoris; K21.9 Gastro-esophageal reflux disease without esophagitis; T87.89 Other complications of amputation stump; Y83.5 Amputation of limb(s) as the cause of abnormal reaction of the patient, or of later complication, without mention of misadventure at the time of the procedure; B95.61 Methicillin susceptible Staphylococcus aureus infection as the cause of diseases classified elsewhere; Z79.4 Long term (current) use of insulin; Z83.3 Family history of diabetes mellitus; Z87.891 Personal history of nicotine dependence; Z89.432 Acquired absence of left foot; Z91.14 Patient's other noncompliance with medication regimen; Z91.19 Patient's noncompliance with other medical treatment and regimen; R40.2411 Glasgow coma scale score 13-15, in the field [EMT or ambulance]

== ENCOUNTER 2018-04-17 20:21 | Inpatient (IN) | payer MEDICAID ==
[2018-04-17 20:29] VITALS: BMI 27.0
--- NOTE | 2018-04-17 20:56 | ED PDOC ---
Arrival/HPI - General Chief Complaint: Abnormal Labs Time Seen by Provider: 04/17/18 20:29 Historian: Patient - History of Present Illness Narrative History of Present Illness (Text): 04/17/18 20:53 62 year old male, whose past medical history includes diabetes and hypertension , who presents to the ED for readmission. Patient was d/c several hours ago from the hospital with osteomyelitis and pancreatitis. The patient's white count was found elevated after d/c and called back to hospital for readmission. Patient denies any complaints at this time. Symptom Course: Unchanged Activities at Onset: Light Context: Home Past Medical History - Provider Review Nursing Documentation Reviewed: Yes - Infectious Disease Hx of Infectious Diseases: None - Cardiac Hx Cardiac Disorders: No Hx Pacemaker: No - Pulmonary Hx Respiratory Disorders: No - Neurological Hx Neurological Disorder: Yes Other/Comment: neuropathy - HEENT Hx HEENT Disorder: No - Renal Hx Renal Disorder: No - Endocrine/Metabolic Hx Diabetes Mellitus Type 1: Yes - Hematological/Oncological Hx Cancer: No - Integumentary Hx Dermatological Disorder: Yes Other/Comment: LEFT GREAT TOE DISCOLORED - Musculoskeletal/Rheumatological Hx Musculoskeletal Disorders: No - Gastrointestinal Hx Gastrointestinal Disorders: No - Genitourinary/Gynecological Hx Genitourinary Disorders: No - Psychiatric Hx Psychophysiologic Disorder: No Hx Substance Use: No - Surgical History Hx Mastectomy: No - Anesthesia Hx Anesthesia Reactions: No Hx Malignant Hyperthermia: No Family/Social History - Physician Review Nursing Documentation Reviewed: Yes Family/Social History: Unknown Family HX Smoking Status: Former Smoker Hx Alcohol Use: No Hx Substance Use: No Allergies/Home Meds Allergies/Adverse Reactions: Allergies No Known Allergies Allergy (Verified 04/12/18 12:01) Home Medications: Home Meds Medication Instructions Recorded Confirmed Insulin Detemir [Levemir] 4 unit [facility] 03/16/18 04/17/18 Review of Systems - Physician Review All systems were reviewed & negative as marked: Yes - Review of Systems Constitutional: Normal Eyes: Normal ENT: Normal Respiratory: Normal. absent: SOB, Cough Cardiovascular: Normal. absent: Chest Pain Gastrointestinal: Normal. absent: Abdominal Pain Genitourinary Male: Normal. absent: Dysuria, Frequency Musculoskeletal: Normal. absent: Back Pain, Neck Pain Skin: Normal. absent: Rash Neurological: Normal. absent: Headache Endocrine: Normal Hemo/Lymphatic: Normal Psychiatric: Normal Physical Exam Vital Signs Reviewed: Yes Vital Signs Temp Pulse Resp BP Pulse Ox 04/17/18 20:29 98.8 F 90 18 148/88 97 Temperature: Afebrile Blood Pressure: Normal Pulse: Regular Respiratory Rate: Normal Appearance: Positive for: Well-Appearing, Non-Toxic, Comfortable Pain Distress: None Mental Status: Positive for: Alert and Oriented X 3 - Systems Exam Head: Present: Atraumatic, Normocephalic Pupils: Present: PERRL Extroacular Muscles: Present: EOMI Conjunctiva: Present: Normal Mouth: Present: Moist Mucous Membranes Neck: Present: Normal Range of Motion Respiratory/Chest: Present: Clear to Auscultation, Good Air Exchange. No: Respiratory Distress, Accessory Muscle Use Cardiovascular: Present: Regular Rate and Rhythm, Normal S1, S2. No: Murmurs Abdomen: No: Tenderness, Distention, Peritoneal Signs Back: Present: Normal Inspection Upper Extremity: Present: Normal Inspection. No: Cyanosis, Edema Lower Extremity: Present: Other (left midfoot amputation). No: Edema Neurological: Present: GCS=15, CN II-XII Intact, Speech Normal Skin: Present: Warm, Dry, Normal Color. No: Rashes Psychiatric: Present: Alert, Oriented x 3, Normal Insight, Normal Concentration Medical Decision Making ED Course and Treatment: 04/17/18 20:58 Impression: 62 year old male presents to the ED for readmission Plan: -- Labs -- Zofran Inj -- Urine Culture -- Urinalysis Progress Notes: 04/17/18 21:[address] Alegria who is aware and agrees with the plan. Accepts patient into hospitalist service. Cefepime ivpb x1 dose ordered per inpatient team request. Urinalysis/culture ordered. - Lab Interpretations I have reviewed the lab results: Yes - Medication Orders Current Medication Orders: Amlodipine Besylate (Norvasc) 10 mg PO DAILY AMINA Heparin Sodium (Porcine) (Heparin) 5,000 units SC Q12 AMINA PRN Reason: Protocol Last Admin: 04/17/18 22:17 Dose: 5,000 units Subcutaneous Administrations Document 04/17/18 22:17 RM (Rec: 04/17/18 22:18 [id number]) Charges for Administration # of Subcutaneous Administrations 1 Hydralazine HCl (Apresoline) 10 mg IVP Q6 PRN PRN Reason: Systolic Blood Pressure Cefepime HCl (Maxipime 1gm) 1 gm in 100 mls @ 100 mls/hr IVPB Q12 AMINA PRN Reason: Protocol Last Admin: 04/17/18 22:16 Dose: 100 mls/hr eMAR Start Stop Document 04/17/18 22:16 RM (Rec: 04/17/18 22:17 RM [facility]) Intravenous Solution Start Date 04/17/18 Start Time 22:16 End Date 04/17/18 End time 23:16 Total Infusion Time 60 Sodium Chloride (Sodium Chloride 0.9%) 1,000 mls @ 75 mls/hr IV .[id number] [facility] Last Admin: 04/17/18 21:00 Dose: 75 mls/hr eMAR Start Stop Document 04/17/18 21:00 RD (Rec: 04/17/18 21:00 RD [id number]) Intravenous Solution Start Date 04/17/18 Start Time 21:00 Insulin Detemir (Levemir) 4 unit SC [facility] Last Admin: 04/17/18 22:19 Dose: 4 units [facility] Blood Glucose Document 04/17/18 22:19 RM (Rec: 04/17/18 22:19 [facility]) Blood Glucose Finger Stick Blood Glucose (70-120) 157 Subcutaneous Administrations Document 04/17/18 22:19 RM (Rec: 04/17/18 22:19 [facility]) Charges for Administration # of Subcutaneous Administrations 1 Insulin Human Regular (Humulin R High) 0 units SC ACHS [facility] PRN Reason: Protocol Last Admin: 04/17/18 21:59 Dose: Not Given Non-Admin Reason: Blood Sugar Parameter MAR Blood Glucose Document 04/17/18 21:59 RM (Rec: 04/17/18 21:59 [facility]) Blood Glucose Finger Stick Blood Glucose (70-120) 157 Ketorolac Tromethamine (Toradol) 30 mg IVP Q6 PRN PRN Reason: Pain, severe (8-10) Lisinopril (Zestril) 40 mg PO DAILY [facility] Metoprolol Tartrate (Lopressor) 25 mg PO BID [facility] Ondansetron HCl (Zofran Inj) 4 mg IVP Q4H PRN PRN Reason: Nausea/Vomiting Pantoprazole Sodium (Protonix Ec Tab) 40 mg PO 0600,1600 AMINA Discontinued Medications Chlorpromazine (Thorazine) 25 mg IM STAT STA PRN Reason: Protocol Stop: 04/17/18 20:45 Last Admin: 04/17/18 20:58 Dose: 25 mg IM Administration Charges Document 04/17/18 20:58 RD (Rec: 04/17/18 21:00 RD [id number]) Injection Site MAR Injection Site Right Vastus Lateralis Charges for Administration # of IM Administrations 1 Re-Assess: Behavioural Document 04/17/18 21:28 RM (Rec: 04/17/18 23:06 RM [id number]) Maintenance Maintenance Dose No Nonmedicinal Nonmedicinal Interventions Redirect Therapeutic Communication Behavior Behavior for Medication: Anxiety Ondansetron HCl (Zofran Inj) 4 mg IVP STAT STA Stop: 04/17/18 20:41 Last Admin: 04/17/18 20:52 Dose: 4 mg IVP Administration Document 04/17/18 20:52 RD (Rec: 04/17/18 20:52 RD [id number]) Charges for Administration # of IVP Administrations 1 - Scribe Statement The provider has reviewed the documentation as recorded by the Scribe Janelle Fox All medical record entries made by the Scribe were at my direction and personally dictated by me. I have reviewed the chart and agree that the record accurately reflects my personal performance of the history, physical exam, medical decision making, and the department course for this patient. I have also personally directed, reviewed, and agree with the discharge instructions and disposition. Disposition/Present on Arrival - Present on Arrival Any Indicators Present on Arrival: No History of DVT/PE: No History of Uncontrolled Diabetes: No Urinary Catheter: No History of Decub. Ulcer: No History Surgical Site Infection Following: Orthopedic Procedures - Disposition Have Diagnosis and Disposition been Completed?: Yes Diagnosis: Leukocytosis Disposition: HOSPITALIZED Disposition Time: 20:34 Patient Plan: Admission Condition: GOOD
[2018-04-17 21:00] LABS: BASO # 0.01 K/mm3 (0.0-2.0); BASO % 0.1 % (0.0-3.0); EOS # 0.1 (0.0-0.7); GRAN # 10.98 (1.4-6.5); GRAN % 84.7 % (50.0-68.0); HEMOGLOBIN 11.9 g/dL (14.0-18.0); LYMPH # 0.9 (1.2-3.4); LYMPH % 6.6 % (22.0-35.0); MEAN CELL VOLUME 87.7 fl (80.0-105.0); MEAN CORPUSCULAR HEMOGLOBIN 30.5 pg (25.0-35.0); MEAN CORPUSCULAR HGB CONC 34.8 g/dl (31.0-37.0); MEAN PLATELET VOLUME 9.5 fl (7.0-11.0); MONO % 7.6 % (1.0-6.0); RBC 3.9 10^6/uL (3.5-6.1); RED CELL DISTRIBUTION WIDTH 13.7 % (11.5-14.5)
[2018-04-17] MEDS: Sodium Chloride 0.9% 1,000 ML IV SCH (21:00)
[2018-04-17 21:10] LABS: BLOOD UREA NITROGEN 35 mg/dL (7-21); CALCIUM 8.7 mg/dL (8.4-10.5); GFR NON-AFRICAN AMERICAN 56
[2018-04-17] MEDS: Insulin Reg-HIGH-Coverage SC SCH (21:59)
--- NOTE | 2018-04-17 22:07 | CP.PCM.HP ---
<Rickey Daniels - Last Filed: 04/17/18 22:20> History of Present Illness - History of Present Illness History of Present Illness: H&P Note For: Dr. Alegria CC: Leukocytosis Pt is a 62 YO male, pmhx of DM, HTN, presents to the ED for readmission. Pt was d/c'ed several hours ago from the hospital with osteomyelitis and r/o pancreatitis, which had symptomatically improved over the hospital course. Upon d/c pt was given a RX for 3 days of kefflex to treat possible pyelonephritis. The pts WBC was found elevated after d/c and called back to hospital for readmission. He states that at home he was comfortable with the only acute complaint of nausea and intractable hiccups. He denies vomiting, and states that he is able to keep liquids down without issue. He admits to me that drinking liquids helps alleviate his nauseated symptoms. He currently denies fevers, chills, chest pain, SOB, cough, vomiting, abd pain, dysuria, hematuria. 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 absent: Abdominal Pain, Belching, Bloating, Hematemesis, Hematochezia, Melena, Vomiting - Genitourinary Genitourinary: absent: Dysuria, Flank Pain, Hematuria - Musculoskeletal Musculoskeletal: Muscle Weakness. absent: Numbness, Stiffness, Tingling Past Patient History - Infectious Disease Hx of Infectious Diseases: None - Past Social History Smoking Status: Former Smoker - CARDIAC Hx Cardiac Disorders: No Hx Pacemaker: No - PULMONARY Hx Respiratory Disorders: No - NEUROLOGICAL Hx Neurological Disorder: Yes Other/Comment: neuropathy - HEENT Hx HEENT Problems: No - RENAL Hx Chronic Kidney Disease: No - ENDOCRINE/METABOLIC Hx Diabetes Mellitus Type 1: Yes - HEMATOLOGICAL/ONCOLOGICAL Hx Cancer: No - INTEGUMENTARY Hx Dermatological Problems: Yes Other/Comment: LEFT GREAT TOE DISCOLORED - MUSCULOSKELETAL/RHEUMATOLOGICAL Hx Musculoskeletal Disorders: No - GASTROINTESTINAL Hx Gastrointestinal Disorders: No - GENITOURINARY/GYNECOLOGICAL Hx Genitourinary Disorders: No - PSYCHIATRIC Hx Psychophysiologic Disorder: No Hx Substance Use: No - SURGICAL HISTORY Hx Mastectomy: No - ANESTHESIA Hx Anesthesia Reactions: No Hx Malignant Hyperthermia: No Meds Allergies/Adverse Reactions: Allergies Allergy/AdvReac Type Severity Reaction Status Date / Time No Known Allergies Allergy Verified 04/12/18 12:01 Physical Exam - Constitutional Appears: Well, Non-toxic, No Acute Distress Additional comments: somnolent pt, falling asleep repeatedly throughout questioning - Head Exam Head Exam: ATRAUMATIC, NORMAL INSPECTION, NORMOCEPHALIC - Eye Exam Eye Exam: EOMI, Normal appearance, PERRL - ENT Exam ENT Exam: Mucous Membranes Dry - Respiratory Exam Respiratory Exam: Clear to Auscultation Bilateral, NORMAL BREATHING PATTERN. absent: Accessory Muscle Use, Decreased Breath Sounds - Cardiovascular Exam Cardiovascular Exam: REGULAR RHYTHM, +S1, +S2. absent: Gallop, Rubs - GI/Abdominal Exam GI & Abdominal Exam: Normal Bowel Sounds. absent: Distended, Firm, Guarding, Rebound, Rigid - Back Exam Back exam: absent: CVA tenderness (L), CVA tenderness (R), tenderness (No suprapubic tenderness) - Neurological Exam Neurological exam: Alert, Oriented x3 - Psychiatric Exam Additional comments: Somnolent - Skin Skin Exam: Dry, Intact, Normal Color, Warm Results - Vital Signs Recent Vital Signs: Last Vital Signs Temp 98.8 F 04/17/18 20:29 Pulse 90 04/17/18 20:29 Resp 18 04/17/18 20:29 BP 148/88 04/17/18 20:29 Pulse Ox 97 04/17/18 20:29 - Labs Result Diagrams: 04/17/18 20:39 04/17/18 20:39 Labs: Laboratory Results - last 24 hr 04/17/18 04/17/18 04/17/18 20:39 20:39 21:20 WBC 13.0 H D RBC 3.90 Hgb 11.9 L Hct 34.2 L MCV 87.7 MCH 30.5 MCHC 34.8 RDW 13.7 Plt Count 255 MPV 9.5 Gran % 84.7 H Lymph % (Auto) 6.6 L [place] % (Auto) 7.6 H Eos % (Auto) 1.0 L Baso % (Auto) 0.1 Gran # 10.98 H Lymph # (Auto) 0.9 L [place] # (Auto) 1.0 H Eos # (Auto) 0.1 Baso # (Auto) 0.01 Sodium 141 Potassium 3.5 L Chloride 106 Carbon Dioxide 24 Anion Gap 15 BUN 35 H Creatinine 1.3 Est GFR ( Amer) > 60 Est GFR (Non-Af Amer) 56 POC Glucose (mg/dL) 157 H Random Glucose 164 H Calcium 8.7 Assessment & Plan - Assessment and Plan (Free Text) Assessment: 62 YO male, pmhx of DM, HTN, presents to the ED for readmission. Pt was d/c'ed several hours ago from the hospital with osteomyelitis and r/o pancreatitis, which had symptomatically improved over the hospital course. Plan: 1) Leukocytosis, persistent - reactive (for retaching, GI symptoms) vs infectious (possible pyelo vs osteo) Intractable Singultus (hiccup) Intractable nausea - WBC was noted to be at 13.0, which is trending down from 17 - Pt was afebrile, other VSS, no dysuria or CVA tenderness - Trend ESR, CRP - Trend CBC - Pending urinalysis and urine culture - Hold blood culture per primary team - Zofran PRN - ID consult - Cefepime - GI consult - Soft, heart healthly Carb consistent diet 2) Hypokalemia possibly due to GI losses vs decreased PO intake - Cont observation without replenishment per primary team 3) Azotemia likely pre-renal due to decreased PO intake: - Cont soft diet and encourage fluid intake - Monitor Cr and BUN - NS @ 75 mg/hr 4) DMII HgbA1c = 6.6 with neuropathy - Levemir 4units AMHS - ISS high control - Toradol PRN 5) HTN chronic hx cad - Hydralazine PRN - Cont home lisinopril - Cont home norvasc - Cont home metoprolol 6) GI/DVT ppx: - Protonix - Heparin Seen, discussed and reviewed with Dr. Raji Daniels PGY1 - Date & Time Date: 04/17/18 Time: 22:43 <Yuki Alegria - Last Filed: 04/18/18 04:31> Results - Vital Signs Recent Vital Signs: Last Vital Signs Temp 99.1 F 04/17/18 22:23 Pulse 86 04/17/18 22:23 Resp 18 04/17/18 22:23 BP 135/82 04/17/18 22:23 Pulse Ox 96 04/17/18 22:14 - Labs Result Diagrams: 04/17/18 20:39 04/17/18 20:39 Labs: Laboratory Results - last 24 hr 04/17/18 04/17/18 04/17/18 20:39 20:39 21:20 WBC 13.0 H D RBC 3.90 Hgb 11.9 L Hct 34.2 L MCV 87.7 MCH 30.5 MCHC 34.8 RDW 13.7 Plt Count 255 MPV 9.5 Gran % 84.7 H Lymph % (Auto) 6.6 L [place] % (Auto) 7.6 H Eos % (Auto) 1.0 L Baso % (Auto) 0.1 Gran # 10.98 H Lymph # (Auto) 0.9 L [place] # (Auto) 1.0 H Eos # (Auto) 0.1 Baso # (Auto) 0.01 Sodium 141 Potassium 3.5 L Chloride 106 Carbon Dioxide 24 Anion Gap 15 BUN 35 H Creatinine 1.3 Est GFR ( Amer) > 60 Est GFR (Non-Af Amer) 56 POC Glucose (mg/dL) 157 H Random Glucose 164 H Calcium 8.7 04/18/18 02:23 WBC RBC Hgb Hct MCV MCH MCHC RDW Plt Count MPV Gran % Lymph % (Auto) [place] % (Auto) Eos % (Auto) Baso % (Auto) Gran # Lymph # (Auto) [place] # (Auto) Eos # (Auto) Baso # (Auto) Sodium Potassium Chloride Carbon Dioxide Anion Gap BUN Creatinine Est GFR ( Amer) Est GFR (Non-Af Amer) POC Glucose (mg/dL) 216 H Random Glucose Calcium Attending/Attestation - Attestation I have personally seen and examined this patient.: Yes I have fully participated in the care of the patient.: Yes I have reviewed all pertinent clinical information: Yes Notes (Text): 04/18/18 04:11 Patient was seen when he was in bed # 3 in the ER. Medical record was reviewed. Agree with history, physical examination, assessment and plan. This 62 year male who was discharged earlier today, who has history of NIDDM, chronic HTN, CAD, admitted with nausea, hiccough, leukocytosis, borderline anemia,will get consultation with infectious disease, discussed with Dr.Naeem Lang,Dr.Patel T,will also get consultation with GI & podiatry, continue Cefepime, other home meds.
[2018-04-17] MEDS: Cefepime 1gm in NS 100ml 1 GM/100 ML BAG IVPB SCH (22:16)
[2018-04-17] MEDS: Insulin Detemir 100 units/ml Vial (Levemir) SC SCH (22:19)
[2018-04-18] MEDS ORDERED: Potassium Chloride 20 mEq ER Tab PO STA (03:57)
[2018-04-18] MEDS: Pantoprazole 40 mg EC Tab PO SCH ×2 (05:21→17:05)
--- NOTE | 2018-04-18 06:26 | CP.PCM.PN ---
<Vinicius Rivera - Last Filed: 04/18/18 16:01> Subjective - Date & Time of Evaluation Date of Evaluation: 04/18/18 Time of Evaluation: 06:20 - Subjective Subjective: Pt seen and examined at bedside this morning. Pt sleeping comfortably, laying on his back upon arrival. Pt reports vomiting before he got back to the hospital , but not since has been here. Denies hiccups at this time. Objective - Vital Signs/Intake and Output Vital Signs (last 24 hours): Temp Pulse Resp BP Pulse Ox 99.1 F 86 18 135/82 96 04/17/18 22:23 04/17/18 22:23 04/17/18 22:23 04/17/18 22:23 04/17/18 22:14 - Medications Medications: Current Medications Amlodipine Besylate (Norvasc) 10 mg PO DAILY [facility] Chlorpromazine (Thorazine) 25 mg IM Q6H PRN; Protocol PRN Reason: hiccough Heparin Sodium (Porcine) (Heparin) 5,000 units SC Q12 [facility] PRN Reason: Protocol Last Admin: 04/17/18 22:17 Dose: 5,000 units Hydralazine HCl (Apresoline) 10 mg IVP Q6 PRN PRN Reason: Systolic Blood Pressure Cefepime HCl (Maxipime 1gm) 1 gm in 100 mls @ 100 mls/hr IVPB Q12 [facility] PRN Reason: Protocol Last Admin: 04/17/18 22:16 Dose: 100 mls/hr Sodium Chloride (Sodium Chloride 0.9%) 1,000 mls @ 75 mls/hr IV .[id number] [facility] Last Admin: 04/17/18 21:00 Dose: 75 mls/hr Insulin Detemir (Levemir) 4 unit SC AMHS [facility] Last Admin: 04/17/18 22:19 Dose: 4 units Insulin Human Regular (Humulin R High) 0 units SC ACHS [facility] PRN Reason: Protocol Last Admin: 04/17/18 21:59 Dose: Not Given Ketorolac Tromethamine (Toradol) 30 mg IVP Q6 PRN PRN Reason: Pain, severe (8-10) Lisinopril (Zestril) 40 mg PO DAILY [facility] Metoprolol Tartrate (Lopressor) 25 mg PO BID [facility] Ondansetron HCl (Zofran Inj) 4 mg IVP Q4H PRN PRN Reason: Nausea/Vomiting Pantoprazole Sodium (Protonix Ec Tab) 40 mg PO 0600,1600 [facility] Last Admin: 04/18/18 05:21 Dose: 40 mg - Labs Labs: 04/17/18 20:39 04/17/18 20:39 - Constitutional Appears: No Acute Distress - Head Exam Head Exam: ATRAUMATIC, NORMOCEPHALIC - Eye Exam Eye Exam: EOMI - ENT Exam ENT Exam: Mucous Membranes Moist - Neck Exam Neck Exam: Full ROM - Respiratory Exam Respiratory Exam: Clear to Ausculation Bilateral, NORMAL BREATHING PATTERN. absent: Accessory Muscle Use, Rales, Rhonchi, Wheezes, Respiratory Distress, Stridor - Cardiovascular Exam Cardiovascular Exam: REGULAR RHYTHM, RRR, +S1, +S2. absent: Diastolic murmur, Irregular Rhythm, JVD, Murmur - GI/Abdominal Exam GI & Abdominal Exam: Distended, Firm, Guarding, Rigid, Soft, Normal Bowel Sounds. absent: Tenderness - Extremities Exam Extremities Exam: Full ROM. absent: Calf Tenderness, Tenderness - Back Exam Back Exam: Full ROM. absent: CVA tenderness (L), CVA tenderness (R) - Neurological Exam Neurological Exam: Alert, Awake, Oriented x3 - Psychiatric Exam Psychiatric exam: Normal Affect, Normal Mood - Skin Skin Exam: Dry, Normal Color, Warm Assessment and Plan - Assessment and Plan (Free Text) Assessment: Pt is a 62 yo male with a PMH of DM II, CAD, and osteomyelitis/5 weeks of Rocephin who presented with 2 days of nausea, vomiting. Initially thought to be due to pancreatitis. Plan: Leukocytosis - resolved, 9.3 - UA and urine culture pending - ID following - continue Cefepime Hypokalemia - replete 20meq - continue to monitor DM - HA1C 6.6 - continue ISS, and levemir HTN - continue home lisinopril, amlodipine, metoprolol - continue hydralazine PRN Ppx - continue Heparin - continue Protonix Pt seen, examined, assessment/plan discussed with Dr Bedoya. Vinicius Rivera PGY1 Internal Medicine Resident <Arslan Bedoya - Last Filed: 04/19/18 15:23> Objective - Vital Signs/Intake and Output Vital Signs (last 24 hours): Temp Pulse Resp BP Pulse Ox 98.8 F 68 20 140/87 91 L 04/19/18 07:53 04/19/18 10:53 04/19/18 07:53 04/19/18 10:53 04/19/18 07:53 Intake and Output: 04/19/18 04/19/18 06:59 18:59 Intake Total 900 Balance 900 - Labs Labs: 04/19/18 06:00 04/19/18 06:00 Attending/Attestation - Attestation I have personally seen and examined this patient.: Yes I have fully participated in the care of the patient.: Yes I have reviewed all pertinent clinical information, including history, physical exam and plan: Yes Notes (Text): 04/19/18 15:23 Medical record note made by the resident after discussion with my direction and input after the patient was personally seen and examined by me. I have reviewed the chart and agree that the record accurately reflects by personal performance of the history, physical exam, data review, and medical decision-making, in the course for the patient. I have also personally directed the plan of care. Patient is afebrile.WBC count is back to normal.We will monitor for 24 hour. If no fever , can be discharged home in 24 hour.
[2018-04-18 06:49] LABS: BASO # 0.02 K/mm3 (0.0-2.0); BASO % 0.2 % (0.0-3.0); EOS # 0.3 (0.0-0.7); EOS % 2.7 % (1.5-5.0); GRAN # 7.32 (1.4-6.5); GRAN % 78.6 % (50.0-68.0); HEMOGLOBIN 8.9 g/dL (14.0-18.0); LYMPH # 1.1 (1.2-3.4); LYMPH % 11.4 % (22.0-35.0); MEAN CELL VOLUME 88.7 fl (80.0-105.0); MEAN CORPUSCULAR HEMOGLOBIN 29.6 pg (25.0-35.0); MEAN CORPUSCULAR HGB CONC 33.3 g/dl (31.0-37.0); MEAN PLATELET VOLUME 9.7 fl (7.0-11.0); MONO # 0.7 (0.1-0.6); MONO % 7.1 % (1.0-6.0); RBC 3.01 10^6/uL (3.5-6.1); RED CELL DISTRIBUTION WIDTH 13.8 % (11.5-14.5); WHITE BLOOD COUNT 9.3 10^3/ul (4.5-11.0)
[2018-04-18 07:43] LABS: ALB/GLOB RATIO 0.9 (1.1-1.8); ALBUMIN 2.7 g/dL (3.0-4.8); ALT/SGPT 23 U/L (7-56); AST/SGOT 18 U/L (17-59); BLOOD UREA NITROGEN 34 mg/dL (7-21); CALCIUM 8.1 mg/dL (8.4-10.5); GFR NON-AFRICAN AMERICAN 52
--- NOTE | 2018-04-18 08:51 | CP.PCM.CON ---
History of Present Illness - History of Present Illness History of Present Illness: Podiatry consult note for Dr. Jauregui, 62 y/o male with PMHx of HTN, Type II DM, Osteomyelitis, Dyslipidemia, and CAD was seen and evaluated at bedside. Patient was re-admitted on 04/17/18 due to elevated WBC. Patient was discharged earlier yesterday, however called back to the ED for re-admission. Patient was discharged home with three days of Keflex. Podiatry was re-consulted for continued care of left transmetatarsal amputation (DOS 02/24/18). Patient states he has an appointment to follow up in the wounds care center with Dr. Jauregui on , 04/21/18. At present, patient offers no complaints to LLE with no pain noted. Patient has kept dressing on LLE and ambulates with assistance of crutches and a surgical shoe. Patient admits to continued nausea and hiccups but denies vomiting or abdominal pain PMH:HTN, DM Type II, Osteomyelitis, Dyslipidemia, CAD PSH: left foot TMA All: NKDA Soc: former cigarette smoker (10 pack/year history); hx EtOH abuse; denies illicit drug use Review of Systems - Review of Systems All systems: reviewed and no additional remarkable complaints except Review of Systems: As per HPI Past Patient History - Infectious Disease Hx of Infectious Diseases: None - Past Social History Smoking Status: Former Smoker - CARDIAC Hx Cardiac Disorders: No Hx Pacemaker: No - PULMONARY Hx Respiratory Disorders: No - NEUROLOGICAL Hx Neurological Disorder: Yes Other/Comment: neuropathy - HEENT Hx HEENT Problems: No - RENAL Hx Chronic Kidney Disease: No - ENDOCRINE/METABOLIC Hx Diabetes Mellitus Type 1: Yes - HEMATOLOGICAL/ONCOLOGICAL Hx Cancer: No - INTEGUMENTARY Hx Dermatological Problems: Yes Other/Comment: LEFT GREAT TOE DISCOLORED - MUSCULOSKELETAL/RHEUMATOLOGICAL Hx Musculoskeletal Disorders: No - GASTROINTESTINAL Hx Gastrointestinal Disorders: No - GENITOURINARY/GYNECOLOGICAL Hx Genitourinary Disorders: No - PSYCHIATRIC Hx Psychophysiologic Disorder: No Hx Substance Use: No - SURGICAL HISTORY Hx Mastectomy: No - ANESTHESIA Hx Anesthesia Reactions: No Hx Malignant Hyperthermia: No Meds Allergies/Adverse Reactions: Allergies Allergy/AdvReac Type Severity Reaction Status Date / Time No Known Allergies Allergy Verified 04/12/18 12:01 - Medications Medications: Current Medications Amlodipine Besylate (Norvasc) 10 mg PO DAILY [facility] Chlorpromazine (Thorazine) 25 mg IM Q6H PRN; Protocol PRN Reason: hiccough Heparin Sodium (Porcine) (Heparin) 5,000 units SC Q12 [facility] PRN Reason: Protocol Last Admin: 04/17/18 22:17 Dose: 5,000 units Hydralazine HCl (Apresoline) 10 mg IVP Q6 PRN PRN Reason: Systolic Blood Pressure Cefepime HCl (Maxipime 1gm) 1 gm in 100 mls @ 100 mls/hr IVPB Q12 [facility] PRN Reason: Protocol Last Admin: 04/17/18 22:16 Dose: 100 mls/hr Sodium Chloride (Sodium Chloride 0.9%) 1,000 mls @ 75 mls/hr IV .[id number] [facility] Last Admin: 04/17/18 21:00 Dose: 75 mls/hr Insulin Detemir (Levemir) 4 unit SC AMHS [facility] Last Admin: 04/17/18 22:19 Dose: 4 units Insulin Human Regular (Humulin R High) 0 units SC ACHS [facility] PRN Reason: Protocol Last Admin: 04/17/18 21:59 Dose: Not Given Ketorolac Tromethamine (Toradol) 30 mg IVP Q6 PRN PRN Reason: Pain, severe (8-10) Lisinopril (Zestril) 40 mg PO DAILY [facility] Metoprolol Tartrate (Lopressor) 25 mg PO BID [facility] Ondansetron HCl (Zofran Inj) 4 mg IVP Q4H PRN PRN Reason: Nausea/Vomiting Pantoprazole Sodium (Protonix Ec Tab) 40 mg PO 0600,1600 [facility] Last Admin: 04/18/18 05:21 Dose: 40 mg Physical Exam - Constitutional Appears: Well, Non-toxic, No Acute Distress - Head Exam Head Exam: ATRAUMATIC, NORMOCEPHALIC - Extremities Exam Additional comments: Dressing to LLE clean/dry/intact LLE focused exam: Vasc: DP pulse palpable 1/4, PT pulse non palpable. Temperature gradient cool to cool. Capillary fill time good to TMA flap. Minimal nonpitting edema noted. Neuro: Protective sensation diminished. Derm: Full thickness ulceration measuring approximately 3.5 x 3.5 x 0.1 cm noted to distal-lateral aspecto of TMA flap extending down to subcutaneous tissue - ulcer noted to have 90% fibrous and 10% necrotic base with hyperkeratotic rim; minimal serosanguinous drainage; no purulence; no fluctuance ; no undermining; no tunneling; no probe to bone; no malodor; no clinical signs of infection present. Ortho: S/p transmetatarsal amputation. No tenderness to palpation amputation site. - Neurological Exam Neurological exam: Alert, Oriented x3 - Psychiatric Exam Psychiatric exam: Normal Affect, Normal Mood Results - Vital Signs Recent Vital Signs: Last Vital Signs Temp 99 F 04/18/18 08:29 Pulse 81 04/18/18 08:29 Resp 18 04/18/18 08:29 BP 137/86 04/18/18 08:29 Pulse Ox 97 04/18/18 08:29 - Labs Result Diagrams: 04/18/18 06:00 04/18/18 06:00 Labs: Laboratory Results - last 24 hr 04/17/18 04/17/18 04/17/18 20:39 20:39 21:20 WBC 13.0 H D RBC 3.90 Hgb 11.9 L Hct 34.2 L MCV 87.7 MCH 30.5 MCHC 34.8 RDW 13.7 Plt Count 255 MPV 9.5 Gran % 84.7 H Lymph % (Auto) 6.6 L [place] % (Auto) 7.6 H Eos % (Auto) 1.0 L Baso % (Auto) 0.1 Gran # 10.98 H Lymph # (Auto) 0.9 L [place] # (Auto) 1.0 H Eos # (Auto) 0.1 Baso # (Auto) 0.01 Sodium 141 Potassium 3.5 L Chloride 106 Carbon Dioxide 24 Anion Gap 15 BUN 35 H Creatinine 1.3 Est GFR ( Amer) > 60 Est GFR (Non-Af Amer) 56 POC Glucose (mg/dL) 157 H Random Glucose 164 H Calcium 8.7 Phosphorus Magnesium Total Bilirubin AST ALT Alkaline Phosphatase Total Protein Albumin Globulin Albumin/Globulin Ratio 04/18/18 04/18/18 04/18/18 02:23 06:00 06:00 WBC 9.3 D RBC 3.01 L Hgb 8.9 L D Hct 26.7 L MCV 88.7 MCH 29.6 MCHC 33.3 RDW 13.8 Plt Count 232 MPV 9.7 Gran % 78.6 H Lymph % (Auto) 11.4 L [place] % (Auto) 7.1 H Eos % (Auto) 2.7 Baso % (Auto) 0.2 Gran # 7.32 H Lymph # (Auto) 1.1 L [place] # (Auto) 0.7 H Eos # (Auto) 0.3 Baso # (Auto) 0.02 Sodium 142 Potassium 3.4 L Chloride 108 H Carbon Dioxide 23 Anion Gap 14 BUN 34 H Creatinine 1.4 Est GFR ( Amer) > 60 Est GFR (Non-Af Amer) 52 POC Glucose (mg/dL) 216 H Random Glucose 135 H Calcium 8.1 L Phosphorus 3.9 Magnesium 2.4 H Total Bilirubin 0.8 AST 18 ALT 23 Alkaline Phosphatase 177 H Total Protein 5.7 L Albumin 2.7 L Globulin 3.0 Albumin/Globulin Ratio 0.9 L 04/18/18 07:26 WBC RBC Hgb Hct MCV MCH MCHC RDW Plt Count MPV Gran % Lymph % (Auto) [place] % (Auto) Eos % (Auto) Baso % (Auto) Gran # Lymph # (Auto) [place] # (Auto) Eos # (Auto) Baso # (Auto) Sodium Potassium Chloride Carbon Dioxide Anion Gap BUN Creatinine Est GFR ( Amer) Est GFR (Non-Af Amer) POC Glucose (mg/dL) 126 H Random Glucose Calcium Phosphorus Magnesium Total Bilirubin AST ALT Alkaline Phosphatase Total Protein Albumin Globulin Albumin/Globulin Ratio Assessment & Plan - Assessment and Plan (Free Text) Assessment: 62 y/o male with PMHx of HTN, Type II DM, Osteomyelitis, Dyslipidemia, and CAD was seen and evaluated at bedside for continued care of transmetatarsal amputation from 02/24/18. Plan: Patient seen and evaluated at bedside Discussed with attending, Dr. Jauregui Chart, labs and vitals reviewed- WBC 04/18/18- 9.3, afebrile TMA + ulceration appear stable w/no signs of infection, will continue to monitor Wound cleansed with saline and dressed with DSD Activity: WBAT LLE with the assistance of crutches and surgical shoe No plan for surgical intervention at this time Patient is stable from podiatry standpoint Patient has appointment to follow up in the Podiatry wound care center on 04/21/18 Podiatry will continue to follow patient while in-house - Date & Time Date: 04/18/18 Time: 08:54
[2018-04-18] MEDS: Insulin Detemir 100 units/ml Vial (Levemir) SC SCH ×2 (10:14→21:54)
[2018-04-18] MEDS: Insulin Reg-HIGH-Coverage SC SCH ×4 (10:14→21:55)
[2018-04-18] MEDS: Cefepime 1gm in NS 100ml 1 GM/100 ML BAG IVPB SCH ×2 (10:16→21:53)
[2018-04-18] MEDS: Sodium Chloride 0.9% 1,000 ML IV SCH (10:17)
[2018-04-18] MEDS ORDERED: POLYETHYLENE GLYCOL 3350 17 GM/Dose PACKET PO ONE (10:21)
--- NOTE | 2018-04-18 13:26 | CP.PCM.CON ---
<Mikhail Quigley - Last Filed: 04/18/18 14:00> History of Present Illness - History of Present Illness History of Present Illness: GI Fellow PGY4, Consult note. This is a 62 y/o male w/ pmh of DM2, chronic neuropathy, PVD, CAD, HTN, osteomyelitis s/p left 5th metatarsal amputation (12/01), and s/p debridement of left anterior tibial angioplasty (12/31), chronic left anterior foot ulceration with osteomyelitis of the 4th metatarsal and proximal phalanx s/p left foot transmetatarsal amputation 02/24/18. Patient returns to ED for follow up of infectious management. We were consult for "previous pt". We last saw him for n/v. He denies any nausea vomiting at this time and is currently tolerating his diet. He has chronic hiccups. He thinks he will be discharged tomorrow. ROS: A 12pt ROS was negative except as above Pmhx: As stated above Pshx: TMA Shx: denies etoh, drugs, tobacco Fhx: Neg for colon or liver cancer Past Patient History - Infectious Disease Hx of Infectious Diseases: None - Past Social History Smoking Status: Former Smoker - CARDIAC Hx Cardiac Disorders: No Hx Pacemaker: No - PULMONARY Hx Respiratory Disorders: No - NEUROLOGICAL Hx Neurological Disorder: Yes Other/Comment: neuropathy - HEENT Hx HEENT Problems: No - RENAL Hx Chronic Kidney Disease: No - ENDOCRINE/METABOLIC Hx Diabetes Mellitus Type 1: Yes - HEMATOLOGICAL/ONCOLOGICAL Hx Cancer: No - INTEGUMENTARY Hx Dermatological Problems: Yes Other/Comment: LEFT GREAT TOE DISCOLORED - MUSCULOSKELETAL/RHEUMATOLOGICAL Hx Musculoskeletal Disorders: No - GASTROINTESTINAL Hx Gastrointestinal Disorders: No - GENITOURINARY/GYNECOLOGICAL Hx Genitourinary Disorders: No - PSYCHIATRIC Hx Psychophysiologic Disorder: No Hx Substance Use: No - SURGICAL HISTORY Hx Mastectomy: No - ANESTHESIA Hx Anesthesia Reactions: No Hx Malignant Hyperthermia: No Meds Allergies/Adverse Reactions: Allergies Allergy/AdvReac Type Severity Reaction Status Date / Time No Known Allergies Allergy Verified 04/12/18 12:01 - Medications Medications: Current Medications Amlodipine Besylate (Norvasc) 10 mg PO DAILY [facility] Last Admin: 04/18/18 10:16 Dose: 10 mg Chlorpromazine (Thorazine) 25 mg IM Q6H PRN; Protocol PRN Reason: hiccough Last Admin: 04/18/18 10:22 Dose: 25 mg Heparin Sodium (Porcine) (Heparin) 5,000 units SC Q12 [facility] PRN Reason: Protocol Last Admin: 04/18/18 10:13 Dose: 5,000 units Hydralazine HCl (Apresoline) 10 mg IVP Q6 PRN PRN Reason: Systolic Blood Pressure Cefepime HCl (Maxipime 1gm) 1 gm in 100 mls @ 100 mls/hr IVPB Q12 [facility] PRN Reason: Protocol Last Admin: 04/18/18 10:16 Dose: 100 mls/hr Sodium Chloride (Sodium Chloride 0.9%) 1,000 mls @ 75 mls/hr IV .[id number] [facility] Last Admin: 04/18/18 10:17 Dose: 75 mls/hr Insulin Detemir (Levemir) 4 unit SC AMHS [facility] Last Admin: 04/18/18 10:14 Dose: 4 units Insulin Human Regular (Humulin R High) 0 units SC ACHS [facility] PRN Reason: Protocol Last Admin: 04/18/18 12:26 Dose: 2 units Ketorolac Tromethamine (Toradol) 30 mg IVP Q6 PRN PRN Reason: Pain, severe (8-10) Lisinopril (Zestril) 40 mg PO DAILY [facility] Last Admin: 04/18/18 10:17 Dose: 40 mg Metoclopramide HCl (Reglan) 5 mg IVP ONCE ONE Stop: 04/18/18 16:31 Metoprolol Tartrate (Lopressor) 25 mg PO BID [facility] Last Admin: 04/18/18 10:15 Dose: 25 mg Ondansetron HCl (Zofran Inj) 4 mg IVP Q4H PRN PRN Reason: Nausea/Vomiting Pantoprazole Sodium (Protonix Ec Tab) 40 mg PO 0600,1600 [facility] Last Admin: 04/18/18 05:21 Dose: 40 mg Physical Exam - Head Exam Head Exam: NORMAL INSPECTION - Eye Exam Eye Exam: Normal appearance - ENT Exam ENT Exam: Mucous Membranes Moist - Respiratory Exam Respiratory Exam: Clear to Auscultation Bilateral, NORMAL BREATHING PATTERN - Cardiovascular Exam Cardiovascular Exam: REGULAR RHYTHM - GI/Abdominal Exam GI & Abdominal Exam: Normal Bowel Sounds, Soft. absent: Tenderness - Extremities Exam Extremities exam: Positive for: normal inspection - Neurological Exam Neurological exam: Alert, CN II-XII Intact, Oriented x3 - Psychiatric Exam Psychiatric exam: Normal Affect, Normal Mood - Skin Skin Exam: Dry, Normal Color Results - Vital Signs Recent Vital Signs: Last Vital Signs Temp 99 F 04/18/18 08:29 Pulse 81 04/18/18 10:15 Resp 18 04/18/18 08:29 BP 137/86 04/18/18 10:16 Pulse Ox 97 04/18/18 08:29 - Labs Result Diagrams: 04/18/18 06:00 04/18/18 06:00 Labs: Laboratory Results - last 24 hr 04/17/18 04/17/18 04/17/18 20:39 20:39 21:20 WBC 13.0 H D RBC 3.90 Hgb 11.9 L Hct 34.2 L MCV 87.7 MCH 30.5 MCHC 34.8 RDW 13.7 Plt Count 255 MPV 9.5 Gran % 84.7 H Lymph % (Auto) 6.6 L D[place] % (Auto) 7.6 H Eos % (Auto) 1.0 L Baso % (Auto) 0.1 Gran # 10.98 H Lymph # (Auto) 0.9 L Dundy # (Auto) 1.0 H Eos # (Auto) 0.1 Baso # (Auto) 0.01 ESR Sodium 141 Potassium 3.5 L Chloride 106 Carbon Dioxide 24 Anion Gap 15 BUN 35 H Creatinine 1.3 Est GFR ( Amer) > 60 Est GFR (Non-Af Amer) 56 POC Glucose (mg/dL) 157 H Random Glucose 164 H Calcium 8.7 Phosphorus Magnesium Total Bilirubin AST ALT Alkaline Phosphatase C-Reactive Protein Total Protein Albumin Globulin Albumin/Globulin Ratio 04/18/18 04/18/18 04/18/18 02:23 06:00 06:00 WBC 9.3 D RBC 3.01 L Hgb 8.9 L D Hct 26.7 L MCV 88.7 MCH 29.6 MCHC 33.3 RDW 13.8 Plt Count 232 MPV 9.7 Gran % 78.6 H Lymph % (Auto) 11.4 L Dundy % (Auto) 7.1 H Eos % (Auto) 2.7 Baso % (Auto) 0.2 Gran # 7.32 H Lymph # (Auto) 1.1 L Dundy # (Auto) 0.7 H Eos # (Auto) 0.3 Baso # (Auto) 0.02 ESR 80 H Sodium 142 Potassium 3.4 L Chloride 108 H Carbon Dioxide 23 Anion Gap 14 BUN 34 H Creatinine 1.4 Est GFR ( Amer) > 60 Est GFR (Non-Af Amer) 52 POC Glucose (mg/dL) 216 H Random Glucose 135 H Calcium 8.1 L Phosphorus 3.9 Magnesium 2.4 H Total Bilirubin 0.8 AST 18 ALT 23 Alkaline Phosphatase 177 H C-Reactive Protein 158.40 H Total Protein 5.7 L Albumin 2.7 L Globulin 3.0 Albumin/Globulin Ratio 0.9 L 04/18/18 04/18/18 07:26 12:08 WBC RBC Hgb Hct MCV MCH MCHC RDW Plt Count MPV Gran % Lymph % (Auto) Dundy % (Auto) Eos % (Auto) Baso % (Auto) Gran # Lymph # (Auto) Dundy # (Auto) Eos # (Auto) Baso # (Auto) ESR Sodium Potassium Chloride Carbon Dioxide Anion Gap BUN Creatinine Est GFR ( Amer) Est GFR (Non-Af Amer) POC Glucose (mg/dL) 126 H 176 H Random Glucose Calcium Phosphorus Magnesium Total Bilirubin AST ALT Alkaline Phosphatase C-Reactive Protein Total Protein Albumin Globulin Albumin/Globulin Ratio Assessment & Plan - Assessment and Plan (Free Text) Assessment: This is a 62yM presenting with complaints of intractable N/V. 1. Intractable nausea - resolved 2. Abdominal pain-resolved 3. Elevated Lipase 4. Elevated LFTs 5. Osteomyelitis s/p TMA on IV Rocephin wk6 Plan: -Continue supportive care with pain control and anti-emetics -Abd US negative for gallstones -Lipid profile, serum etoh and UDS negative -Hepatitis panel negative -PPI daily -Any further abx therapy per ID -Please call with any questions or concerns - Date & Time Date: 04/18/18 Time: 13:26 <Yunier Tatum - Last Filed: 04/18/18 19:37> Meds - Medications Medications: Current Medications Amlodipine Besylate (Norvasc) 10 mg PO DAILY [facility] Last Admin: 04/18/18 10:16 Dose: 10 mg Chlorpromazine (Thorazine) 25 mg IM Q6H PRN; Protocol PRN Reason: hiccough Last Admin: 04/18/18 10:22 Dose: 25 mg Heparin Sodium (Porcine) (Heparin) 5,000 units SC Q12 [facility] PRN Reason: Protocol Last Admin: 04/18/18 10:13 Dose: 5,000 units Hydralazine HCl (Apresoline) 10 mg IVP Q6 PRN PRN Reason: Systolic Blood Pressure Cefepime HCl (Maxipime 1gm) 1 gm in 100 mls @ 100 mls/hr IVPB Q12 [facility] PRN Reason: Protocol Last Admin: 04/18/18 10:16 Dose: 100 mls/hr Sodium Chloride (Sodium Chloride 0.9%) 1,000 mls @ 75 mls/hr IV .[id number] [facility] Last Admin: 04/18/18 10:17 Dose: 75 mls/hr Insulin Detemir (Levemir) 4 unit SC AMHS [facility] Last Admin: 04/18/18 10:14 Dose: 4 units Insulin Human Regular (Humulin R High) 0 units SC ACHS [facility] PRN Reason: Protocol Last Admin: 04/18/18 17:01 Dose: 4 units Ketorolac Tromethamine (Toradol) 30 mg IVP Q6 PRN PRN Reason: Pain, severe (8-10) Lisinopril (Zestril) 40 mg PO DAILY [facility] Last Admin: 04/18/18 10:17 Dose: 40 mg Metoprolol Tartrate (Lopressor) 25 mg PO BID [facility] Last Admin: 04/18/18 17:05 Dose: 25 mg Ondansetron HCl (Zofran Inj) 4 mg IVP Q4H PRN PRN Reason: Nausea/Vomiting Pantoprazole Sodium (Protonix Ec Tab) 40 mg PO 0600,1600 [facility] Last Admin: 04/18/18 17:05 Dose: 40 mg Results - Vital Signs Recent Vital Signs: Last Vital Signs Temp 99.8 F H 04/18/18 16:20 Pulse 67 04/18/18 17:05 Resp 19 04/18/18 16:20 BP 110/71 04/18/18 17:05 Pulse Ox 93 L 04/18/18 16:20 - Labs Result Diagrams: 04/18/18 06:00 04/18/18 06:00 Labs: Laboratory Results - last 24 hr 04/17/18 04/17/18 04/17/18 20:39 20:39 21:20 WBC 13.0 H D RBC 3.90 Hgb 11.9 L Hct 34.2 L MCV 87.7 MCH 30.5 MCHC 34.8 RDW 13.7 Plt Count 255 MPV 9.5 Gran % 84.7 H Lymph % (Auto) 6.6 L Dundy % (Auto) 7.6 H Eos % (Auto) 1.0 L Baso % (Auto) 0.1 Gran # 10.98 H Lymph # (Auto) 0.9 L Dundy # (Auto) 1.0 H Eos # (Auto) 0.1 Baso # (Auto) 0.01 ESR Sodium 141 Potassium 3.5 L Chloride 106 Carbon Dioxide 24 Anion Gap 15 BUN 35 H Creatinine 1.3 Est GFR ( Amer) > 60 Est GFR (Non-Af Amer) 56 POC Glucose (mg/dL) 157 H Random Glucose 164 H Calcium 8.7 Phosphorus Magnesium Total Bilirubin AST ALT Alkaline Phosphatase C-Reactive Protein Total Protein Albumin Globulin Albumin/Globulin Ratio Urine Color Urine Appearance Urine pH Ur Specific [place] Urine Protein Urine Glucose (UA) Urine Ketones Urine Blood Urine Nitrate Urine Bilirubin Urine Urobilinogen Ur Leukocyte Esterase Urine RBC Urine WBC Ur Epithelial Cells Urine Bacteria 04/18/18 04/18/18 04/18/18 02:23 06:00 06:00 WBC 9.3 D RBC 3.01 L Hgb 8.9 L D Hct 26.7 L MCV 88.7 MCH 29.6 MCHC 33.3 RDW 13.8 Plt Count 232 MPV 9.7 Gran % 78.6 H Lymph % (Auto) 11.4 L Dundy % (Auto) 7.1 H Eos % (Auto) 2.7 Baso % (Auto) 0.2 Gran # 7.32 H Lymph # (Auto) 1.1 L Dundy # (Auto) 0.7 H Eos # (Auto) 0.3 Baso # (Auto) 0.02 ESR 80 H Sodium 142 Potassium 3.4 L Chloride 108 H Carbon Dioxide 23 Anion Gap 14 BUN 34 H Creatinine 1.4 Est GFR ( Amer) > 60 Est GFR (Non-Af Amer) 52 POC Glucose (mg/dL) 216 H Random Glucose 135 H Calcium 8.1 L Phosphorus 3.9 Magnesium 2.4 H Total Bilirubin 0.8 AST 18 ALT 23 Alkaline Phosphatase 177 H C-Reactive Protein 158.40 H Total Protein 5.7 L Albumin 2.7 L Globulin 3.0 Albumin/Globulin Ratio 0.9 L Urine Color Urine Appearance Urine pH Ur Specific [place] Urine Protein Urine Glucose (UA) Urine Ketones Urine Blood Urine Nitrate Urine Bilirubin Urine Urobilinogen Ur Leukocyte Esterase Urine RBC Urine WBC Ur Epithelial Cells Urine Bacteria 04/18/18 04/18/18 04/18/18 07:26 12:08 15:36 WBC RBC Hgb Hct MCV MCH MCHC RDW Plt Count MPV Gran % Lymph % (Auto) Dundy % (Auto) Eos % (Auto) Baso % (Auto) Gran # Lymph # (Auto) Dundy # (Auto) Eos # (Auto) Baso # (Auto) ESR Sodium Potassium Chloride Carbon Dioxide Anion Gap BUN Creatinine Est GFR ( Amer) Est GFR (Non-Af Amer) POC Glucose (mg/dL) 126 H 176 H Random Glucose Calcium Phosphorus Magnesium Total Bilirubin AST ALT Alkaline Phosphatase C-Reactive Protein Total Protein Albumin Globulin Albumin/Globulin Ratio Urine Color Dark yellow Urine Appearance Sl cloudy Urine pH 6.0 Ur Specific [place] >= 1.030 Urine Protein 100 H Urine Glucose (UA) Negative Urine Ketones Negative Urine Blood Small H Urine Nitrate Negative Urine Bilirubin Negative Urine Urobilinogen 1.0 H Ur Leukocyte Esterase Moderate H Urine RBC 0 - 2 Urine WBC Tntc Ur Epithelial Cells None Urine Bacteria Trace 04/18/18 16:20 WBC RBC Hgb Hct MCV MCH MCHC RDW Plt Count MPV Gran % Lymph % (Auto) Dundy % (Auto) Eos % (Auto) Baso % (Auto) Gran # Lymph # (Auto) Dundy # (Auto) Eos # (Auto) Baso # (Auto) ESR Sodium Potassium Chloride Carbon Dioxide Anion Gap BUN Creatinine Est GFR ( Amer) Est GFR (Non-Af Amer) POC Glucose (mg/dL) 217 H Random Glucose Calcium Phosphorus Magnesium Total Bilirubin AST ALT Alkaline Phosphatase C-Reactive Protein Total Protein Albumin Globulin Albumin/Globulin Ratio Urine Color Urine Appearance Urine pH Ur Specific [place] Urine Protein Urine Glucose (UA) Urine Ketones Urine Blood Urine Nitrate Urine Bilirubin Urine Urobilinogen Ur Leukocyte Esterase Urine RBC Urine WBC Ur Epithelial Cells Urine Bacteria Attending/Attestation - Attestation I have personally seen and examined this patient.: Yes I have fully participated in the care of the patient.: Yes I have reviewed all pertinent clinical information: Yes Notes (Text): 04/18/18 19:37 Chart reviewed. Patient interviewed and examined. Awake and alert. Agree with the findings on the exam. Assessment and recommendations, as documented above, were discussed with Dr. Quigley. Discussed with the pt's nurse.
[2018-04-18 15:42] LABS: URINE BILIRUBIN NEGATIVE (NEGATIVE); URINE BLOOD SMALL (NEGATIVE); URINE GLUCOSE (UA) NEGATIVE (NEGATIVE); URINE LEUKOCYTE ESTERASE MODERATE Leu/uL (NEGATIVE); URINE PROTEIN 100 mg/dL (<30 mg/dL)
[2018-04-18 15:44] LABS: URINE APPEARANCE SL CLOUDY (CLEAR); URINE COLOR DARK YELLOW (YELLOW)
[2018-04-18 15:49] LABS: URINE RBC 0 - 2 /hpf (0-2); URINE WBC TNTC /hpf (0-6)
[2018-04-18 15:50] LABS: URINE BACTERIA TRACE (NEG)
[2018-04-18] MEDS ORDERED: Potassium Chloride 20 mEq ER Tab PO ONE (15:55)
--- NOTE | 2018-04-18 16:13 | CP.PCM.PN ---
Subjective - Date & Time of Evaluation Date of Evaluation: 04/18/18 Time of Evaluation: 15:15 - Subjective Subjective: Infectious Disease Consult/Follow Up: April 18, 2018 62 yo male with PMHx of DM, CAD, HTN, dyslipidemia, and history of Left heel osteomyelitis that ultimately required left transmetatarsal resection. The patient was still on IV Rocephin for treatment of osteomyelitis with MSSA. The patient was on week 5 of therapy. He began to have intractable nausea and vomiting for the past 2 days. The patient has known noncompliance with his diabetic treatment. He is currently complaining that he cannot swallow his blood pressure medications. The patient has known issues with GERDs as well. ESR has increased drastically to 118 from 27 a week ago. Lipase was found to be 1056. Unremarkable ultrasound of the gallbladder/abdomen. Nausea still. The patient still has not had any bowel movements. Tolerating liquid diet and soft diet. Feels better but still with mild nausea. Lipase at a normal level on last check 04/16/2018. The patient with the question of pyelonephritis from the CT scan of the abd/pelvis. No growth in blood cultures. Patient feeling better today. Was discharged from hospital and called back yesterday. Mild leukocytosis. ESR remains elevated. Objective - Vital Signs/Intake and Output Vital Signs (last 24 hours): Temp Pulse Resp BP Pulse Ox 99 F 81 18 137/86 97 04/18/18 08:29 04/18/18 10:15 04/18/18 08:29 04/18/18 10:16 04/18/18 08:29 - Medications Medications: Current Medications Amlodipine Besylate (Norvasc) 10 mg PO DAILY [facility] Last Admin: 04/18/18 10:16 Dose: 10 mg Chlorpromazine (Thorazine) 25 mg IM Q6H PRN; Protocol PRN Reason: hiccough Last Admin: 04/18/18 10:22 Dose: 25 mg Heparin Sodium (Porcine) (Heparin) 5,000 units SC Q12 [facility] PRN Reason: Protocol Last Admin: 04/18/18 10:13 Dose: 5,000 units Hydralazine HCl (Apresoline) 10 mg IVP Q6 PRN PRN Reason: Systolic Blood Pressure Cefepime HCl (Maxipime 1gm) 1 gm in 100 mls @ 100 mls/hr IVPB Q12 [facility] PRN Reason: Protocol Last Admin: 04/18/18 10:16 Dose: 100 mls/hr Sodium Chloride (Sodium Chloride 0.9%) 1,000 mls @ 75 mls/hr IV .[id number] [facility] Last Admin: 04/18/18 10:17 Dose: 75 mls/hr Insulin Detemir (Levemir) 4 unit SC AMHS [facility] Last Admin: 04/18/18 10:14 Dose: 4 units Insulin Human Regular (Humulin R High) 0 units SC ACHS [facility] PRN Reason: Protocol Last Admin: 04/18/18 12:26 Dose: 2 units Ketorolac Tromethamine (Toradol) 30 mg IVP Q6 PRN PRN Reason: Pain, severe (8-10) Lisinopril (Zestril) 40 mg PO DAILY [facility] Last Admin: 04/18/18 10:17 Dose: 40 mg Metoclopramide HCl (Reglan) 5 mg IVP ONCE ONE Stop: 04/18/18 16:31 Metoprolol Tartrate (Lopressor) 25 mg PO BID [facility] Last Admin: 04/18/18 10:15 Dose: 25 mg Ondansetron HCl (Zofran Inj) 4 mg IVP Q4H PRN PRN Reason: Nausea/Vomiting Pantoprazole Sodium (Protonix Ec Tab) 40 mg PO 0600,1600 [facility] Last Admin: 04/18/18 05:21 Dose: 40 mg - Labs Labs: 04/18/18 06:00 04/18/18 06:00 - Constitutional Appears: Non-toxic, No Acute Distress, Chronically Ill - Head Exam Head Exam: ATRAUMATIC, NORMOCEPHALIC - Eye Exam Eye Exam: EOMI, PERRL Pupil Exam: NORMAL ACCOMODATION, PERRL - ENT Exam ENT Exam: Mucous Membranes Moist, Normal External Ear Exam, TM's Normal Bilaterally - Neck Exam Neck Exam: Full ROM, Normal Inspection - Respiratory Exam Respiratory Exam: Clear to Ausculation Bilateral, NORMAL BREATHING PATTERN. absent: Rales, Rhonchi, Wheezes - Cardiovascular Exam Cardiovascular Exam: REGULAR RHYTHM, RRR, +S1, +S2 - GI/Abdominal Exam GI & Abdominal Exam: Soft, Normal Bowel Sounds. absent: Distended, Tenderness - Extremities Exam Extremities Exam: Joint Swelling, Pedal Edema Additional comments: left transmetatarsal resection - Neurological Exam Neurological Exam: Alert, Awake, CN II-XII Intact, Oriented x3 - Psychiatric Exam Psychiatric exam: Normal Affect, Normal Mood - Skin Skin Exam: Dry, Normal Color Assessment and Plan - Assessment and Plan (Free Text) Assessment: 62 yo male with extensive past medical history that includes HTN, DM, dyslipidemia, CAD, CKD Stage III, and recent diagnosis of Osteomyelitis of the left foot. The patient was on IV Rocephin of 2 grams daily to complete 6 weeks of therapy. He is currently on week 5 of therapy of the Rocephin before it was stopped due to the severely elevated lipase. The patient had severely elevated Lipase values to 1056. Question of Pancreatitis at this point. No prior history of Pancreatitis. ESR with significant elevation to 118 that has improved to 75. C-Reactive protein of 200 now. Still nausea at this time. Bilirubin mildly elevated. AST and ALT normal. HIV negative. Hepatitis studies negative. Consider Plain X-ray of abdomen or CT without contrast of abdomen. No leukocytosis. CT abdomen does not show pancreatitis but shows minimal perinephric stranding bilaterally (possible pyelonephritis). Mild increase in leukocytosis. Obtain urine cultures before restarting any antibiotics. If restarting antibiotics, do not use Rocephin (the patient had 5 weeks of Rocephin so treatment should be covering organisms that Rocephin did not cover) and start with Cefepime (at least adds Pseudomonas coverage). Clinically improving. ESR has mildly improved. Patient with few complaints but still having occasional hiccups. Thank you for allowing me to participate in the care of the patient, we will follow with you.
[2018-04-19] MEDS: Sodium Chloride 0.9% 1,000 ML IV SCH (00:29)
[2018-04-19] MEDS: Pantoprazole 40 mg EC Tab PO SCH (05:49)
--- NOTE | 2018-04-19 05:52 | CP.PCM.DIS ---
<Vinicius Rivera [place] - Last Filed: 04/19/18 20:46> Provider - Provider Date of Admission: 04/17/18 20:34 Attending physician: Arslan Bedoya MD Consults: GI ID Time Spent in preparation of Discharge (in minutes): 45 Diagnosis - Discharge Diagnosis (1) Pancreatitis Status: Acute Priority: High (2) Amputated toe of left foot Status: Acute Priority: Medium (3) Pancreatitis Status: Acute Priority: High Hospital Course - Lab Results Lab Results: Most Recent Lab Values WBC 9.3 10^3/ul (4.5-11.0) D 04/18/18 06:00 RBC 3.01 10^6/uL (3.5-6.1) L 04/18/18 06:00 Hgb 8.9 g/dL (14.0-18.0) L D 04/18/18 06:00 Hct 26.7 % (42.0-52.0) L 04/18/18 06:00 MCV 88.7 fl (80.0-105.0) 04/18/18 06:00 MCH 29.6 pg (25.0-35.0) 04/18/18 06:00 MCHC 33.3 g/dl (31.0-37.0) 04/18/18 06:00 RDW 13.8 % (11.5-14.5) 04/18/18 06:00 Plt Count 232 10^3/uL (120.0-450.0) 04/18/18 06:00 MPV 9.7 fl (7.0-11.0) 04/18/18 06:00 Gran % 78.6 % (50.0-68.0) H 04/18/18 06:00 Lymph % (Auto) 11.4 % (22.0-35.0) L 04/18/18 06:00 Dickson % (Auto) 7.1 % (1.0-6.0) H 04/18/18 06:00 Eos % (Auto) 2.7 % (1.5-5.0) 04/18/18 06:00 Baso % (Auto) 0.2 % (0.0-3.0) 04/18/18 06:00 Gran # 7.32 (1.4-6.5) H 04/18/18 06:00 Lymph # (Auto) 1.1 (1.2-3.4) L 04/18/18 06:00 Dickson # (Auto) 0.7 (0.1-0.6) H 04/18/18 06:00 Eos # (Auto) 0.3 (0.0-0.7) 04/18/18 06:00 Baso # (Auto) 0.02 K/mm3 (0.0-2.0) 04/18/18 06:00 ESR 80 mm/hr (0.00-15.0) H 04/18/18 06:00 Sodium 142 mmol/L (132-148) 04/18/18 06:00 Potassium 3.4 mmol/L (3.6-5.0) L 04/18/18 06:00 Chloride 108 mmol/L (98-107) H 04/18/18 06:00 Carbon Dioxide 23 mmol/L (21-33) 04/18/18 06:00 Anion Gap 14 (10-20) 04/18/18 06:00 BUN 34 mg/dL (7-21) H 04/18/18 06:00 Creatinine 1.4 mg/dl (0.8-1.5) 04/18/18 06:00 Est GFR ( Amer) > 60 04/18/18 06:00 Est GFR (Non-Af Amer) 52 04/18/18 06:00 POC Glucose (mg/dL) 186 mg/dL (65-110) H 04/19/18 01:23 Random Glucose 135 mg/dL (70-110) H 04/18/18 06:00 Calcium 8.1 mg/dL (8.4-10.5) L 04/18/18 06:00 Phosphorus 3.9 mg/dL (2.5-4.5) 04/18/18 06:00 Magnesium 2.4 mg/dL (1.7-2.2) H 04/18/18 06:00 Total Bilirubin 0.8 mg/dL (0.2-1.3) 04/18/18 06:00 AST 18 U/L (17-59) 04/18/18 06:00 ALT 23 U/L (7-56) 04/18/18 06:00 Alkaline Phosphatase 177 U/L (38-126) H 04/18/18 06:00 C-Reactive Protein 158.40 mg/L (0.0-9.9) H 04/18/18 06:00 Total Protein 5.7 g/dL (5.8-8.3) L 04/18/18 06:00 Albumin 2.7 g/dL (3.0-4.8) L 04/18/18 06:00 Globulin 3.0 gm/dL 04/18/18 06:00 Albumin/Globulin Ratio 0.9 (1.1-1.8) L 04/18/18 06:00 Urine Color Dark yellow (YELLOW) 04/18/18 15:36 Urine Appearance Sl cloudy (CLEAR) 04/18/18 15:36 Urine pH 6.0 (4.7-8.0) 04/18/18 15:36 Ur Specific Kendall >= 1.030 (1.005-1.035) 04/18/18 15:36 Urine Protein 100 mg/dL (<30 mg/dL) H 04/18/18 15:36 Urine Glucose (UA) Negative mg/dL (NEGATIVE) 04/18/18 15:36 Urine Ketones Negative mg/dL (NEGATIVE) 04/18/18 15:36 Urine Blood Small (NEGATIVE) H 04/18/18 15:36 Urine Nitrate Negative (NEGATIVE) 04/18/18 15:36 Urine Bilirubin Negative (NEGATIVE) 04/18/18 15:36 Urine Urobilinogen 1.0 E.U./dL (<1 E.U./dL) H 04/18/18 15:36 Ur Leukocyte Esterase Moderate Christiane/uL (NEGATIVE) H 04/18/18 15:36 Urine RBC 0 - 2 /hpf (0-2) 04/18/18 15:36 Urine WBC Tntc /hpf (0-6) 04/18/18 15:36 Ur Epithelial Cells None /hpf (0-5) 04/18/18 15:36 Urine Bacteria Trace (NEG) 04/18/18 15:36 - Hospital Course Hospital Course: Pt is a 62 yo male with a PMH of DM, HTN, osteomyelitits, who presented to the ED for readmission. The pt WBC was found to be elevated, he also had nausea and intractable hiccups. He denied vomiting, and was able to tolerate PO intake. He stated that drinking and eating helped to alleviate some of his symptoms. During his admission, pt was continued on cefepime. He also had hypokalemia which was repleted. Pt was discharged with a PPI, gabapentin for his neuropathy and hiccups. Pt was also given PO keflex. Pt was advised to return to the nearest ED if his symptoms returned/ worsened. - Date & Time of H&P Date of H&P: 04/19/18 Time of H&P: 05:50 Discharge Exam - Head Exam Head Exam: ATRAUMATIC, NORMOCEPHALIC - Eye Exam Eye Exam: EOMI, Normal appearance - ENT Exam ENT Exam: Mucous Membranes Moist - Neck Exam Neck exam: Full Rom - Respiratory Exam Respiratory Exam: NORMAL BREATHING PATTERN, UNREMARKABLE. absent: Accessory Muscle Use, Chest Wall Tenderness, Rales, Rhonchi, Wheezes, Respiratory Distress , Stridor - Cardiovascular Exam Cardiovascular Exam: REGULAR RHYTHM, RRR, +S1, +S2. absent: Diastolic murmur, JVD, Systolic Murmur - GI/Abdominal Exam GI & Abdominal Exam: Normal Bowel Sounds, Soft. absent: Distended, Firm, Guarding, Rigid - Extremities Exam Extremities exam: full ROM - Back Exam Back exam: FULL ROM, NORMAL INSPECTION. absent: CVA tenderness (L), CVA tenderness (R), muscle spasm - Neurological Exam Neurological exam: Alert, Oriented x3 - Psychiatric Exam Psychiatric exam: Normal Affect, Normal Mood - Skin Skin Exam: Dry, Normal Color, Warm Discharge Plan - Discharge Medications Prescriptions: Gabapentin [Neurontin] 100 mg PO TID #42 capsule - Follow Up Plan Condition: GOOD Disposition: HOME/ ROUTINE Instructions: Pancreatitis (DC), Leukocytosis (DC), Leukocytosis (GEN), Hypertension (DC), Hypertension (GEN) Additional Instructions: Patient discharged to home. Patient to follow up with primary doctor in 1 week. <Arslan Bedoya - Last Filed: 04/20/18 08:37> Provider - Provider Date of Admission: 04/17/18 20:34 Attending physician: Arslan Bedoya MD Hospital Course - Lab Results Lab Results: Most Recent Lab Values WBC 9.5 10^3/ul (4.5-11.0) 04/19/18 06:00 RBC 3.19 10^6/uL (3.5-6.1) L 04/19/18 06:00 Hgb 9.5 g/dL (14.0-18.0) L 04/19/18 06:00 Hct 27.9 % (42.0-52.0) L 04/19/18 06:00 MCV 87.5 fl (80.0-105.0) 04/19/18 06:00 MCH 29.8 pg (25.0-35.0) 04/19/18 06:00 MCHC 34.1 g/dl (31.0-37.0) 04/19/18 06:00 RDW 13.6 % (11.5-14.5) 04/19/18 06:00 Plt Count 249 10^3/uL (120.0-450.0) 04/19/18 06:00 MPV 9.7 fl (7.0-11.0) 04/19/18 06:00 Gran % 74.4 % (50.0-68.0) H 04/19/18 06:00 Lymph % (Auto) 16.1 % (22.0-35.0) L 04/19/18 06:00 Dickson % (Auto) 6.4 % (1.0-6.0) H 04/19/18 06:00 Eos % (Auto) 3.0 % (1.5-5.0) 04/19/18 06:00 Baso % (Auto) 0.1 % (0.0-3.0) 04/19/18 06:00 Gran # 7.07 (1.4-6.5) H 04/19/18 06:00 Lymph # (Auto) 1.5 (1.2-3.4) 04/19/18 06:00 Dickson # (Auto) 0.6 (0.1-0.6) 04/19/18 06:00 Eos # (Auto) 0.3 (0.0-0.7) 04/19/18 06:00 Baso # (Auto) 0.01 K/mm3 (0.0-2.0) 04/19/18 06:00 ESR 85 mm/hr (0.00-15.0) H 04/19/18 06:00 Sodium 137 mmol/L (132-148) 04/19/18 06:00 Potassium 3.6 mmol/L (3.6-5.0) 04/19/18 06:00 Chloride 106 mmol/L (98-107) 04/19/18 06:00 Carbon Dioxide 21 mmol/L (21-33) 04/19/18 06:00 Anion Gap 13 (10-20) 04/19/18 06:00 BUN 34 mg/dL (7-21) H 04/19/18 06:00 Creatinine 1.4 mg/dl (0.8-1.5) 04/19/18 06:00 Est GFR ( Amer) > 60 04/19/18 06:00 Est GFR (Non-Af Amer) 52 04/19/18 06:00 POC Glucose (mg/dL) 285 mg/dL (65-110) H 04/19/18 11:47 Random Glucose 135 mg/dL (70-110) H 04/19/18 06:00 Calcium 8.2 mg/dL (8.4-10.5) L 04/19/18 06:00 Phosphorus 3.5 mg/dL (2.5-4.5) 04/19/18 06:00 Magnesium 2.3 mg/dL (1.7-2.2) H 04/19/18 06:00 Total Bilirubin 0.7 mg/dL (0.2-1.3) 04/19/18 06:00 AST 31 U/L (17-59) 04/19/18 06:00 ALT 32 U/L (7-56) 04/19/18 06:00 Alkaline Phosphatase 236 U/L (38-126) H D 04/19/18 06:00 C-Reactive Protein 85.10 mg/L (0.0-9.9) H 04/19/18 06:00 Total Protein 6.0 g/dL (5.8-8.3) 04/19/18 06:00 Albumin 2.8 g/dL (3.0-4.8) L 04/19/18 06:00 Globulin 3.2 gm/dL 04/19/18 06:00 Albumin/Globulin Ratio 0.9 (1.1-1.8) L 04/19/18 06:00 Urine Color Dark yellow (YELLOW) 04/18/18 15:36 Urine Appearance Sl cloudy (CLEAR) 04/18/18 15:36 Urine pH 6.0 (4.7-8.0) 04/18/18 15:36 Ur Specific Kendall >= 1.030 (1.005-1.035) 04/18/18 15:36 Urine Protein 100 mg/dL (<30 mg/dL) H 04/18/18 15:36 Urine Glucose (UA) Negative mg/dL (NEGATIVE) 04/18/18 15:36 Urine Ketones Negative mg/dL (NEGATIVE) 04/18/18 15:36 Urine Blood Small (NEGATIVE) H 04/18/18 15:36 Urine Nitrate Negative (NEGATIVE) 04/18/18 15:36 Urine Bilirubin Negative (NEGATIVE) 04/18/18 15:36 Urine Urobilinogen 1.0 E.U./dL (<1 E.U./dL) H 04/18/18 15:36 Ur Leukocyte Esterase Moderate Christiane/uL (NEGATIVE) H 04/18/18 15:36 Urine RBC 0 - 2 /hpf (0-2) 04/18/18 15:36 Urine WBC Tntc /hpf (0-6) 04/18/18 15:36 Ur Epithelial Cells None /hpf (0-5) 04/18/18 15:36 Urine Bacteria Trace (NEG) 04/18/18 15:36 Attending/Attestation - Attestation I have personally seen and examined this patient.: Yes I have fully participated in the care of the patient.: Yes I have reviewed all pertinent clinical information, including history, physical exam and plan: Yes Notes (Text): 04/20/18 08:33 Medical record note made by the resident after discussion with my direction and input after the patient was personally seen and examined by me. I have reviewed the chart and agree that the record accurately reflects by personal performance of the history, physical exam, data review, and medical decision-making, in the course for the patient. I have also personally directed the plan of care. 62 yrs old male with PMH of HTN,DM,PVD, osteomylitis of foot was recently admitted with acute Pancreatitis.Patient symptoms improved and he was discharged home but was readmitted as his LABS showed leukocytosis.He was monitored for 2 days in the hospital.Patient is afebrile since readmission.WBC count is back to normal.He is tolerating diet and hiccough has improved.Case was discussed with ID.Patient will be discharged home and will follow up with PCP and Podiatry. Management plan was discussed in detail with patient. Education was provided.
[2018-04-19 06:38] LABS: BASO # 0.01 K/mm3 (0.0-2.0); BASO % 0.1 % (0.0-3.0); EOS # 0.3 (0.0-0.7); GRAN # 7.07 (1.4-6.5); GRAN % 74.4 % (50.0-68.0); HEMOGLOBIN 9.5 g/dL (14.0-18.0); LYMPH # 1.5 (1.2-3.4); LYMPH % 16.1 % (22.0-35.0); MEAN CELL VOLUME 87.5 fl (80.0-105.0); MEAN CORPUSCULAR HEMOGLOBIN 29.8 pg (25.0-35.0); MEAN CORPUSCULAR HGB CONC 34.1 g/dl (31.0-37.0); MEAN PLATELET VOLUME 9.7 fl (7.0-11.0); MONO # 0.6 (0.1-0.6); MONO % 6.4 % (1.0-6.0); RBC 3.19 10^6/uL (3.5-6.1); RED CELL DISTRIBUTION WIDTH 13.6 % (11.5-14.5); WHITE BLOOD COUNT 9.5 10^3/ul (4.5-11.0)
[2018-04-19 07:54] VITALS: BP 140/87; PULSE 68; RESP 20; TEMP 98.8; O2SAT 91
[2018-04-19 07:54] LABS: ALB/GLOB RATIO 0.9 (1.1-1.8); ALBUMIN 2.8 g/dL (3.0-4.8); ALT/SGPT 32 U/L (7-56); AST/SGOT 31 U/L (17-59); BLOOD UREA NITROGEN 34 mg/dL (7-21); CALCIUM 8.2 mg/dL (8.4-10.5); GFR NON-AFRICAN AMERICAN 52
[2018-04-19] MEDS: Insulin Reg-HIGH-Coverage SC SCH (08:44)
[2018-04-19] MEDS: Insulin Detemir 100 units/ml Vial (Levemir) SC SCH (10:51)
[2018-04-19] MEDS: Cefepime 1gm in NS 100ml 1 GM/100 ML BAG IVPB SCH (10:52)
== END 2018-04-19 14:20 | disposition home or self-care (01) | DRG 439 ==
LOC: ED 20:21 → ERH 20:34 → 3RNO 21:13
PROVIDERS: ADMIT Hospitalist; ATTEND Internal Medicine
DX: K85.90 Acute pancreatitis without necrosis or infection, unspecified (principal); M86.8X7 Other osteomyelitis, ankle and foot; E11.69 Type 2 diabetes mellitus with other specified complication; E87.6 Hypokalemia; I25.10 Atherosclerotic heart disease of native coronary artery without angina pectoris; E11.40 Type 2 diabetes mellitus with diabetic neuropathy, unspecified; E11.621 Type 2 diabetes mellitus with foot ulcer; L97.529 Non-pressure chronic ulcer of other part of left foot with unspecified severity; I12.9 Hypertensive chronic kidney disease with stage 1 through stage 4 chronic kidney disease, or unspecified chronic kidney disease; N18.3 Chronic kidney disease, stage 3 (moderate); E78.5 Hyperlipidemia, unspecified; E11.22 Type 2 diabetes mellitus with diabetic chronic kidney disease; E11.51 Type 2 diabetes mellitus with diabetic peripheral angiopathy without gangrene; B95.61 Methicillin susceptible Staphylococcus aureus infection as the cause of diseases classified elsewhere; Z79.4 Long term (current) use of insulin; Z87.891 Personal history of nicotine dependence; Z89.422 Acquired absence of other left toe(s); Z91.14 Patient's other noncompliance with medication regimen; Z83.3 Family history of diabetes mellitus; Z79.82 Long term (current) use of aspirin